=== PATIENT | female | born 1940 | race Caucasian/White ===

== ENCOUNTER → 2019-04-06 14:13 | Outpatient (BNVA) | payer MEDICARE, MEDICAID, SELFPAY | PROVIDERS: Family Provider Internal Medicine; PCP Family Medicine; Visit Provider Nurse Practitioner Family | DX: R05 Cough (principal) | CPT/HCPCS: 71046; 87804 ==

== ENCOUNTER 2019-05-11 10:14 | Emergency (ER) | payer MEDICARE, MEDICAID, SELFPAY ==
[2019-05-11 10:34] VITALS: BP 145/94; PULSE 99; RESP 18; O2SAT 94; BMI 27.4
--- NOTE | 2019-05-11 12:47 | CTR_ITS ---
PROCEDURE INFORMATION: Exam: CT Head Without Contrast Exam date and time: 05/11/2019 1:24 PM Age: 78 years old Clinical indication: Injury or trauma; Fall; Initial encounter; Blunt trauma (contusions or hematomas); Consciousness not specified; Additional info: Fall and head hit concrete TECHNIQUE: Imaging protocol: Computed tomography of the head without contrast. Radiation optimization: All CT scans at this facility use at least one of these dose optimization techniques: automated exposure control; mA and/or kV adjustment per patient size (includes targeted exams where dose is matched to clinical indication); or iterative reconstruction. COMPARISON: CT head wo con* [id number] 04/27/2018 2:36 PM FINDINGS: Brain: There is no acute intracranial hemorrhage or mass effect. Moderate diffuse volume loss is within the range of normal for patient age. There are small vessel ischemic changes within the periventricular and subcortical white matter, but the normal bowers-white matter delineation is maintained. There is left frontal encephalomalacia. Ventricles: Normal. No ventriculomegaly. Bones/joints: Unremarkable. No acute fracture. Sinuses: Visualized sinuses are unremarkable. No fluid levels. Mastoid air cells: Visualized mastoid air cells are well aerated. Soft tissues: There is right frontal soft tissue swelling. CT/CT head wo con* [id number] IMPRESSION: No acute hemorrhage or calvarial fracture. Radiation Dose CTDIVOL = (mGy): DLP = 791.08 (mGy-cm)
--- NOTE | 2019-05-11 13:02 | W.ED.HEATRA ---
HPI - Head Injury General: Chief complaint: Head Injury Stated complaint: FALL HEAD LAC Time Seen by Provider: 05/11/19 12:48 History of Present Illness: HPI Narrative: Patient is a 78-year-old female who comes to the ED after fall. Patient is on a pick some bands. Patient was walking in the [place] parking lot tripped and fell hitting her knees and forehead onto the concrete. She has some bleeding from a wound on her forehead. Her only complaint after the fall is a headache and some right knee pain. She denies any loss of consciousness or nausea or vomiting after fall. She also denies any numbness or tingling to the extremities or weakness to the extremities. She can not remember when she got her last tetanus shot. Associated symptoms: Deny nausea, neck pain or vomiting Review of Systems Const: Denies: fever, chills or fatigue Eyes: Denies: change in vision or eye discomfort ENMT: Denies: throat pain, painful swallowing, nasal discharge or nasal congestion Card: Denies: chest pain, palpitations, edema, swelling of feet/ankles, shortness of breath on exertion or shortness of breath when lying down Resp: Denies: shortness of breath, productive cough or non-productive cough GI: Denies: abdominal pain, nausea, vomiting, diarrhea, constipation or blood in stool : Denies: flank pain, painful urination or blood in urine Musc: Reports: extremity pain (right knee); Denies: neck pain, back pain or extremity swelling Skin/Breast: Reports: new lesion (forhead-abrasion from fall); Denies: rash Neuro: Reports: headache; Denies: numbness in extremities or weakness in extremities [facility] ED PFSH: Social History Smoking and tobacco status: never smoked Alcohol intake: never Physical Exam Narrative: EXAM NARRATIVE: Patient is a 78-year-old female who is lying comfortably in the room when I entered. She is showing no signs of acute distress or pain. She is also showing no signs of acute respiratory distress. Const: COMMON NORMALS: oriented x3 HENMT: COMMON NORMALS: normocephalic HEAD & SCALP: normocephalic, abrasion (forehead) and contusion (forehead) MOUTH: oral and palatal mucosa normal THROAT: posterior oropharynx normal and uvula midline Neck/C-Spine: COMMON NORMALS: supple GENERAL: Yes normal visual inspection Resp: COMMON NORMALS: normal respiratory effort, no retractions, no use of accessory muscles and clear to auscultation bilaterally AUSCULTATION: clear to auscultation bilaterally Cardio: COMMON NORMALS: regular rate, regular rhythm, S1 normal heart sound, S2 normal heart sound, no gallops, no clicks, no murmurs and peripheral pulses 2+ throughout RATE: regular rate RHYTHM: regular rhythm HEART SOUNDS: S1 normal and S2 normal PERIPHERAL PULSES: pulses 2+ throughout GI: COMMON NORMALS: normal to inspection, nondistended, normoactive bowel sounds, soft to palpation, non-tender and no masses PALPATION: Yes soft : COMMON NORMALS: Yes no CVA tenderness BLADDER/KIDNEY EXAM: Yes no CVA tenderness Back/Pelvis: COMMON NORMALS: no CVA tenderness Extremity: RIGHT LOWER EXTREMITY: Yes knee joint Right knee: Yes inspection (swelling), Yes palpation (tender), Yes ROM (normal) and Yes neurovascular exam (intact) Neuro: COMMON NORMALS: oriented x3, CN's II-XII intact bilaterally, moves all extremities, no focal motor deficits and no sensory deficits noted SENSORY EXAM: Yes extremities (intact) MOTOR EXAM: strength 5/5 throughout Course ED course: Abrasion on forehead was cleaned and a bandage was placed over it. Vital Signs: Vital signs: Vital Signs Pulse Rate 86 05/11/19 16:15 Respiratory Rate 18 05/11/19 16:15 Blood Pressure 146/72 05/11/19 16:15 Pulse Oximetry 96 05/11/19 16:15 MDM - Head Injury Imaging Data^: CT Head: Attestation: I personally reviewed and interpreted this imaging study as follows: Radiologist's impression: [address] [place] [address] CT Scan Report Signed Patient: Arielle Vences Unit #: [id number] : 1940 Age/Sex: 78 / F ADM Date: 05/11/19 Loc: ER Room/Bed: Attending Dr: Ordering Provider/Ordering MD: Arvind Encarnacion Date of Service: 05/11/19 Procedure(s): CT head wo con* [id number] Accession Number(s): [id number] Report Number: [id number] PROCEDURE INFORMATION: Exam: CT Head Without Contrast Exam date and time: 05/11/2019 1:24 PM Age: 78 years old Clinical indication: Injury or trauma; Fall; Initial encounter; Blunt trauma (contusions or hematomas); Consciousness not specified; Additional info: Fall and head hit concrete TECHNIQUE: Imaging protocol: Computed tomography of the head without contrast. Radiation optimization: All CT scans at this facility use at least one of these dose optimization techniques: automated exposure control; mA and/or kV adjustment per patient size (includes targeted exams where dose is matched to clinical indication); or iterative reconstruction. COMPARISON: CT head wo con* [id number] 04/27/2018 2:36 PM FINDINGS: Brain: There is no acute intracranial hemorrhage or mass effect. Moderate diffuse volume loss is within the range of normal for patient age. There are small vessel ischemic changes within the periventricular and subcortical white matter, but the normal bowers-white matter delineation is maintained. There is left frontal encephalomalacia. Ventricles: Normal. No ventriculomegaly. Bones/joints: Unremarkable. No acute fracture. Sinuses: Visualized sinuses are unremarkable. No fluid levels. Mastoid air cells: Visualized mastoid air cells are well aerated. Soft tissues: There is right frontal soft tissue swelling. CT/CT head wo con* [id number] IMPRESSION: No acute hemorrhage or calvarial fracture. Radiation Dose CTDIVOL = (mGy): DLP = 791.08 (mGy-cm) Dictated By: Margo Zhang MD Signed By: Margo Zhang MD Signed Date/Time: 05/11/19 1347 DD/ 1346 Xray Ortho: Attestation: I personally reviewed and interpreted this imaging study as follows: Radiologist's impression: [address] [address] XRay Report Signed Patient: Arielle Vences Unit #: [id number] : 1940 Age/Sex: 78 / F ADM Date: 05/11/19 Loc: ER Room/Bed: Attending Dr: Ordering Provider/Ordering MD: Arvind Encarnacion Date of Service: 05/11/19 Procedure(s): XR knee RT 3V* [id number] Accession Number(s): [id number] Report Number: [id number] WS: [id number] XR knee RT 3V* [id number] REASON FOR EXAM: pain and swelling FINDINGS: Mild degenerate changes across the meniscal joints. A low riding patellas seen with loss of the patella tibial space. There is degenerate changes of the patella femoral articulation. There is no definite fractures of the knee seen. The patella showed no gross fractures or displacement there is spurring seen. XR/XR knee RT 3V* [id number] IMPRESSION: Low riding patella. There is no fractures seen in the knee There is degenerate changes of the meniscal cyst spaces. Degenerate changes of the patella femoral articulation. Dictated By: Arturo Rose DO Signed By: Arturo Rose DO Signed Date/Time: 05/11/196 DD/ 24 Discharge Plan Discharge Patient Disposition: Home, Self-Care Clinical Impression: Fall Qualifiers: Encounter type: initial encounter Qualified Code(s): W19.XXXA - Unspecified fall, initial encounter Contusion Qualifiers: Encounter type: initial encounter Contusion area: head Contusion of head detail: scalp Qualified Code(s): S00.03XA - Contusion of scalp, initial encounter Condition: Stable Prescriptions: No Action lisinopril 10 mg tablet 10 mg PO DAILY RF: 0 levothyroxine 88 mcg tablet 88 mcg PO DAILY RF: 0 digoxin 125 mcg (0.125 mg) tablet 125 mcg PO DAILY RF: 0 diltiazem HCl 360 mg capsule,extended release 24hr 360 mg PO QAM RF: 0 Eliquis 5 mg tablet 5 mg PO BID RF: 0 furosemide 40 mg tablet 20 mg PO QAM RF: 0 gabapentin 600 mg tablet 600 mg PO TID RF: 0 loratadine 10 mg tablet 10 mg PO DAILY RF: 0 Myrbetriq 50 mg tablet extended release 24 hr 50 mg PO Q24H RF: 0 calcium carbonate [Oyster Shell Calcium] 500 mg calcium (1,250 mg) tablet 500 mg PO BID RF: 0 tizanidine 2 mg capsule 4 mg PO BID PRN (Reason: Spasms) RF: 0 omeprazole 20 mg capsule,delayed release(DR/EC) 20 mg PO DAILY RF: 0 trazodone 50 mg Tablet 25 - 50 mg PO BEDTIME PRN (Reason: Sleep) RF: 0 alendronate 70 mg tablet 70 mg PO Q7D RF: 0 Thera-Tabs Tablet 1 tab PO BID RF: 0 Industry 10-325 mg Tablet 1 tab PO DAILY PRN (Reason: Pain) RF: 0 Norvasc 10 mg Tablet 10 mg PO DAILY RF: 0 Singulair 10 mg Tablet 10 mg PO DAILY RF: 0 pravastatin 20 mg Tablet 20 mg PO DAILY RF: 0 hydroxyzine pamoate 25 mg Capsule 25 mg PO BEDTIME PRN (Reason: unknown) RF: 0 Cymbalta 60 mg Capsule,Delayed Release(Dr/Ec) 60 mg PO DAILY RF: 0 cholecalciferol (vitamin D3) 1,250 mcg (50,000 unit) capsule 50,000 unit PO Q7D RF: 0 Anoro Ellipta 62.5-25 mcg/actuation Blister With Device 1 inh INHALATION DAILY RF: 0 potassium chloride 20 mEq Tablet Extended Release 20 meq PO 5XD RF: 0 Discharge Orders: Discharge Order (Routine); Ordered 05/11/19 Ordered By: Arvind Encarnacion Referrals: Alison Ramos MD [Family Provider] - Radha Martinez MD [Primary Care Provider] - Discharge Diet: Regular Discharge Activity: Resume usual activity Patient Instructions: Contusion in Adults (ED) Activity Restrictions/Additional Instructions: Follow-up with your PCP in 7 days for reevaluation. Apply ice on contusion on hand to help with swelling. Make sure the wound is clean daily and fresh bandage placed on it. Watch for signs of infection such as redness, warmth, drainage. Take Tylenol or ibuprofen for any headache or fever. Discharge Date/Time: 05/11/19 16:16 Coding Level of Care Code ED Rigging Up Worker for Haileyg Fwd Exam Comprehensive
--- NOTE | 2019-05-11 13:31 | PC.NURSE ---
PT TAKEN TO CT VIA STRETCHER.
--- NOTE | 2019-05-11 14:07 | XR_ITS ---
WS: [id number] XR knee RT 3V* [id number] REASON FOR EXAM: pain and swelling FINDINGS: Mild degenerate changes across the meniscal joints. A low riding patellas seen with loss of the patella tibial space. There is degenerate changes of the patella femoral articulation. There is no definite fractures of the knee seen. The patella showed no gross fractures or displacement there is spurring seen. XR/XR knee RT 3V* [id number] IMPRESSION: Low riding patella. There is no fractures seen in the knee There is degenerate changes of the meniscal cyst spaces. Degenerate changes of the patella femoral articulation.
[2019-05-11] MEDS: acetaminophen 500 mg Tablet PO (14:13)
[2019-05-11] MEDS: tetanus-dipt-pertussis 0.5 mL SDV IM (14:31)
[2019-05-11 16:15] VITALS: BP 146/72; PULSE 86; RESP 18; O2SAT 96
== END 2019-05-11 16:16 | disposition home or self-care (01) ==
PROVIDERS: Emergency Provider Physician Assistant; Family Provider Internal Medicine; PCP Family Medicine
DX: S00.83XA Contusion of other part of head, initial encounter (principal); W01.0XXA Fall on same level from slipping, tripping and stumbling without subsequent striking against object, initial encounter; Y92.481 Parking lot as the place of occurrence of the external cause; Z23 Encounter for immunization
CPT/HCPCS: 70450; 73562; 90471; 90715; 99281; 99283

== ENCOUNTER 2019-06-27 19:59 | Emergency (ER) | payer MEDICARE, MEDICAID, SELFPAY ==
[2019-06-27 20:00] VITALS: BP 170/02; PULSE 98; RESP 18; TEMP 36.2; O2SAT 92; BMI 27.4
--- NOTE | 2019-06-27 20:07 | ED_ITS ---
HPI - Nausea/Vomiting/Diarrhea General: Chief complaint: Nausea/Vomiting/Diarrhea Stated complaint: N/V Time Seen by Provider: 06/27/19 20:07 Source: patient Mode of arrival: ambulatory Limitations: no limitations History of Present Illness: HPI Narrative: Patient comes in today for complaints of nausea and vomiting starting an hour before arrival to the ER. Patient denies any chest pain or shortness of breath. Patient appears mildly unwell. Patient appears in no pain at rest. Associated nausea: Yes Associated symtoms: Reports nausea Review of Systems General: Reports: 10 or more systems reviewed and unremarkable except in HPI and below GI: Reports: nausea and vomiting PFS ED PFSH: Social History Smoking and tobacco status: never smoked Alcohol intake: never Physical Exam Const: COMMON NORMALS: no apparent distress and oriented x3 GENERAL APPEARANCE: cooperative HENMT: COMMON NORMALS: normocephalic, TM's normal bilaterally and external nose normal HEAD & SCALP: normal to inspection and normocephalic NOSE: external nose normal TYMPANIC MEMBRANE: TM's normal bilaterally MOUTH: oral and palatal mucosa normal THROAT: posterior oropharynx normal Eye: GENERAL EYE: normal appearance of both eyes Neck/C-Spine: COMMON NORMALS: full ROM Lymph: LYMPHATIC: no lymphadenopathy noted Chest: COMMONS NORMALS: inspection of chest normal Resp: COMMON NORMALS: normal respiratory effort EFFORT & INSPECTION: Yes able to speak in complete sentences Cardio: COMMON NORMALS: regular rate and regular rhythm RATE: regular rate RHYTHM: regular rhythm GI: AUSCULTATION: Yes normoactive bowel sounds PALPATION: Yes tender (mild mid epigastric tenderness) : COMMON NORMALS: Yes no CVA tenderness BLADDER/KIDNEY EXAM: Yes no CVA tenderness Back/Pelvis: COMMON NORMALS: no CVA tenderness and thoracic and lumbar spine normal to inspection Extremity: COMMON NORMALS: normal to inspection Neuro: COMMON NORMALS: oriented x3 and moves all extremities Psych: COMMON NORMALS: mental status grossly normal and cooperative Skin: COMMON NORMALS: no rashes or lesions noted GENERAL SKIN EXAM: no rashes or lesions noted Course Vital Signs: Vital signs: Vital Signs Temperature 97.2 F L 06/27/19 20:00 Pulse Rate 91 06/27/19 21:29 Respiratory Rate 18 06/27/19 21:17 Blood Pressure 141/88 06/27/19 21:29 Pulse Oximetry 90 06/27/19 21:17 MDM - Nausea/Vomiting/Diarrhea MDM Narrative: Medical decision making narrative: Patient comes in today for complaints of nausea and vomiting starting an hour before arrival to the ER. On exam patient's abdomen is soft with some mild tenderness in the epigastric area. Bowel sounds are normal. Skin is warm and dry. Vital signs are normal except for mild elevation in blood pressure. Differential diagnosis includes gastro enteritis, acute food poisoning, UTI, gastritis, viral syndrome. Blood cell count was normal. Metabolic panel noted some mild increase in creatinine to 1.1. Urinalysis had some hyaline casts along with squamous cells and white and red blood cells. Suspect patient probably has a mild viral gastroenteritis or food poisoning patient had improvement after 500 cc of fluid and 1 dose of Zofran. Patient was allowed to go home with medication to help with nausea and vomiting and encouraged to drink plenty of fluids. Patient reported understanding of care plan and need for follow-up or return. Lab Data: Labs: Lab Results 06/27/19 06/27/19 06/27/19 Range/Units 20:21 20:21 20:21 WBC 9.6 (4.0-10.0) 10^3/ uL RBC 4.90 (4.1-5.3) 10^6/u L Hgb 14.4 (11.5-15.3) g/dL Hct 45.1 (37.0-47.0) % MCV 92.0 (81-99) fL MCH 29.4 (28.0-34.0) pg MCHC 31.9 (30.0-36.0) g/dL RDW 13.1 (12.1-15.1) % Plt Count 224 (130-400) 10^3/c mm MPV 9.6 (7.4-10.4) fL Neut % (Auto) 77.2 % Lymph % (Auto) 12.4 % Edwards % (Auto) 8.8 % Eos % (Auto) 1.0 % Baso % (Auto) 0.4 % Neut # (Auto) 7.4 (1.8-7.7) 10^3/u L Lymph # (Auto) 1.2 (0.8-4.8) 10^3/u L Edwards # (Auto) 0.8 (0.2-0.9) 10^3/u L Eos # (Auto) 0.1 (0.0-0.8) 10^3/u L Baso # (Auto) 0.0 (0.0-0.1) 10^3/u L Nucleated RBC % (a uto) 0 % Nucleated RBCs # 0.0 /100WBC Sodium 137 (136-145) mmol/L Potassium 4.1 (3.5-5.1) mmol/L Chloride 98 (98-107) mmol/L Carbon Dioxide 27 (22-29) mmol/L Anion Gap 16.1 (5-19) BUN 18 (8-23) mg/dL Creatinine 1.1 H (0.5-0.9) mg/dL Glucose 133 H (65-115) mg/dL Calculated Osmolal ity 282 L (285-295) mOsm/k g Calcium 10.3 (8.5-10.5) mg/dL Total Bilirubin 0.3 (0.15-1.2) mg/dL AST 18 (0-32) U/L ALT 11 (0-33) U/L Alkaline Phosphata se 69 (35-105) IU/L Total Protein 7.8 (6.6-8.7) g/dL Albumin 4.8 (3.5-5.2) g/dL Globulin 3.0 (1.3-4.6) g/dL Lipase 15 (13-60) U/L Urine Color (Yellow) Urine Appearance (CLEAR) Urine pH (5-7) Ur Specific Gravit y (1.005-1.030) Urine Protein (Negative) Urine Glucose (UA) (Normal) Urine Ketones (Negative) Urine Blood (Negative) Urine Nitrate (Negative) Urine Bilirubin (NEGATIVE) Urine Urobilinogen (Negative) mg/dL Ur Leukocyte Vale ase (Negative) Urine RBC (0-2) /hpf Urine WBC (0-5) /hpf Ur Squamous Epith Cells (0-5) Ur Transition Epit h Cell /hpf Urine Bacteria (NONE) Hyaline Casts Digoxin 0.4 L (0.6-1.2) ng/mL 06/27/19 Range/Units 21:06 WBC (4.0-10.0) 10^3/ uL RBC (4.1-5.3) 10^6/u L Hgb (11.5-15.3) g/dL Hct (37.0-47.0) % MCV (81-99) fL MCH (28.0-34.0) pg MCHC (30.0-36.0) g/dL RDW (12.1-15.1) % Plt Count (130-400) 10^3/c mm MPV (7.4-10.4) fL Neut % (Auto) % Lymph % (Auto) % Edwards % (Auto) % Eos % (Auto) % Baso % (Auto) % Neut # (Auto) (1.8-7.7) 10^3/u L Lymph # (Auto) (0.8-4.8) 10^3/u L Edwards # (Auto) (0.2-0.9) 10^3/u L Eos # (Auto) (0.0-0.8) 10^3/u L Baso # (Auto) (0.0-0.1) 10^3/u L Nucleated RBC % (a uto) % Nucleated RBCs # /100WBC Sodium (136-145) mmol/L Potassium (3.5-5.1) mmol/L Chloride (98-107) mmol/L Carbon Dioxide (22-29) mmol/L Anion Gap (5-19) BUN (8-23) mg/dL Creatinine (0.5-0.9) mg/dL Glucose (65-115) mg/dL Calculated Osmolal ity (285-295) mOsm/k g Calcium (8.5-10.5) mg/dL Total Bilirubin (0.15-1.2) mg/dL AST (0-32) U/L ALT (0-33) U/L Alkaline Phosphata se (35-105) IU/L Total Protein (6.6-8.7) g/dL Albumin (3.5-5.2) g/dL Globulin (1.3-4.6) g/dL Lipase (13-60) U/L Urine Color Yellow (Yellow) Urine Appearance Clear (CLEAR) Urine pH 5 (5-7) Ur Specific Gravit y 1.025 (1.005-1.030) Urine Protein Neg (Negative) Urine Glucose (UA) Norm (Normal) Urine Ketones Negative (Negative) Urine Blood Neg (Negative) Urine Nitrate Negative (Negative) Urine Bilirubin Neg (NEGATIVE) Urine Urobilinogen Norm (Negative) mg/dL Ur Leukocyte Vale ase 1+ H (Negative) Urine RBC 0-4 H (0-2) /hpf Urine WBC 0-4 H (0-5) /hpf Ur Squamous Epith Cells 5-10 H (0-5) Ur Transition Epit h Cell 0-4 /hpf Urine Bacteria Trace (NONE) Hyaline Casts 5-10 H Digoxin (0.6-1.2) ng/mL EKG Data^: EKG 1: Attestation: I personally reviewed and interpreted this EKG as follows: (2036, a-fib, rate 90, no ectopy, no ST elevation) Discharge Plan Discharge Patient Disposition: Home, Self-Care Clinical Impression: Dehydration, Acute viral syndrome Vomiting Qualifiers: Vomiting type: unspecified Vomiting Intractability: non-intractable Nausea presence: with nausea Qualified Code(s): R11.2 - Nausea with vomiting, unspecified Condition: Stable Prescriptions: New ondansetron HCl 4 mg tablet 4 mg PO Q8H PRN (Reason: nausea and vomiting) Qty: 7 RF: 0 No Action lisinopril 10 mg tablet 10 mg PO DAILY RF: 0 levothyroxine 88 mcg tablet 88 mcg PO DAILY RF: 0 digoxin 125 mcg (0.125 mg) tablet 125 mcg PO DAILY RF: 0 diltiazem HCl 360 mg capsule,extended release 24hr 360 mg PO QAM RF: 0 Eliquis 5 mg tablet 5 mg PO BID RF: 0 furosemide 40 mg tablet 20 mg PO QAM RF: 0 gabapentin 600 mg tablet 600 mg PO TID RF: 0 loratadine 10 mg tablet 10 mg PO DAILY RF: 0 Myrbetriq 50 mg tablet extended release 24 hr 50 mg PO Q24H RF: 0 calcium carbonate [Oyster Shell Calcium] 500 mg calcium (1,250 mg) tablet 500 mg PO BID RF: 0 tizanidine 2 mg capsule 4 mg PO BID PRN (Reason: Spasms) RF: 0 omeprazole 20 mg capsule,delayed release(DR/EC) 20 mg PO DAILY RF: 0 trazodone 50 mg Tablet 25 - 50 mg PO BEDTIME PRN (Reason: Sleep) RF: 0 alendronate 70 mg tablet 70 mg PO Q7D RF: 0 Thera-Tabs Tablet 1 tab PO BID RF: 0 Lincoln 10-325 mg Tablet 1 tab PO DAILY PRN (Reason: Pain) RF: 0 Norvasc 10 mg Tablet 10 mg PO DAILY RF: 0 Singulair 10 mg Tablet 10 mg PO DAILY RF: 0 pravastatin 20 mg Tablet 20 mg PO DAILY RF: 0 hydroxyzine pamoate 25 mg Capsule 25 mg PO BEDTIME PRN (Reason: unknown) RF: 0 Cymbalta 60 mg Capsule,Delayed Release(Dr/Ec) 60 mg PO DAILY RF: 0 cholecalciferol (vitamin D3) 1,250 mcg (50,000 unit) capsule 50,000 unit PO Q7D RF: 0 Anoro Ellipta 62.5-25 mcg/actuation Blister With Device 1 inh INHALATION DAILY RF: 0 potassium chloride 20 mEq Tablet Extended Release 20 meq PO 5XD RF: 0 Discharge Orders: Discharge Order (Routine); Ordered 06/27/19 Ordered By: Chencho Díaz Referrals: Alison Ramos MD [Family Provider] - Radha Martinez MD [Primary Care Provider] - Discharge Diet: Usual diet Discharge Activity: Increase activity as tolerated Patient Instructions: Gastroenteritis (ED) Activity Restrictions/Additional Instructions: Drink plenty of fluids Light diet Drink sips of fluids to start, then increase as tolerated Return to ER for worsening symptoms, high fever, or severe pain Follow-up with primary care in one week Coding Level of Care Code 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
--- NOTE | 2019-06-27 20:17 | ECG_ITS ---
Measurements Intervals [place] Rate: 91 P: TX: 0 QRS: -42 QRSD: 93 T: 52 QT: 365 QTc: 450 ATRIAL FIBRILLATION MARKED LEFT AXIS DEVIATION [QRS AXIS < -30] ANTEROSEPTAL MYOCARDIAL INFARCTION [40+ ms Q WAVE IN V1-V4], PROBABLY OLD Compared to ECG 06/20/2018 17:48:00 No significant changes Electronically Signed On 06-28-2019 7:48:45 CDT by Justin Ramachandran M.D. [email or web address]
[2019-06-27 20:25] LABS: Basophils % 0.4 %; Eosinophils # 0.1 10^3/uL (0.0-0.8); Hematocrit 45.1 % (37.0-47.0); Hemoglobin 14.4 g/dL (11.5-15.3); Lymphocytes # 1.2 10^3/uL (0.8-4.8); Lymphocytes % 12.4 %; Mean Corpuscular HGB Conc 31.9 g/dL (30.0-36.0); Mean Corpuscular Hemoglobin 29.4 pg (28.0-34.0); Mean Platelet Volume 9.6 fL (7.4-10.4); Monocytes # 0.8 10^3/uL (0.2-0.9); Monocytes % 8.8 %; Neutrophils # 7.4 10^3/uL (1.8-7.7); Neutrophils % 77.2 %; Nucleated Red Blood Cells % 0 %; Platelet Count 224 10^3/cmm (130-400); Red Cell Distribution Width 13.1 % (12.1-15.1); White Blood Count 9.6 10^3/uL (4.0-10.0)
[2019-06-27] MEDS: ondansetron 2 mg/ML SDV 2 mL 4 MG IVP (20:39)
[2019-06-27 20:41] LABS: Alanine Aminotransferase 11 U/L (0-33); Albumin Level 4.8 g/dL (3.5-5.2); Alkaline Phosphatase 69 IU/L (35-105); Anion Gap 16.1 (5-19); Aspartate Amino Transferase 18 U/L (0-32); Blood Urea Nitrogen 18 mg/dL (8-23); Calcium 10.3 mg/dL (8.5-10.5); Carbon Dioxide 27 mmol/L (22-29); Chloride 98 mmol/L (98-107); Glucose 133 mg/dL (65-115); Lipase 15 U/L (13-60); Osmolality Calculated 282 mOsm/kg (285-295); Potassium 4.1 mmol/L (3.5-5.1); Sodium 137 mmol/L (136-145); Total Bilirubin 0.3 mg/dL (0.15-1.2); Total Protein 7.8 g/dL (6.6-8.7)
[2019-06-27 21:17] VITALS: BP 130/91; PULSE 117; RESP 18; O2SAT 90
[2019-06-27] MEDS: sodium chloride 0.9% 500 ML IV (21:17)
[2019-06-27 21:19] LABS: Digoxin 0.4 ng/mL (0.6-1.2)
[2019-06-27 21:28] LABS: Add Urine Microscopic? YES; Bilirubin Urine Neg (NEGATIVE); Blood Urine Neg (Negative); Glucose Urine UA Norm (Normal); Ketones Urine Negative (Negative); Leukocyte Esterase Urine 1+ (Negative); Nitrate Urine Negative (Negative); Protein Urine Neg (Negative); Specific Gravity, Urine 1.025 (1.005-1.030); Urine Appearance Clear (CLEAR); Urine Color Yellow (Yellow); Urobilinogen Urine Norm (Negative); pH Urine 5 (5-7)
[2019-06-27 21:29] VITALS: BP 141/75; BP 141/88; BP 147/85; PULSE 100; PULSE 79; PULSE 91
[2019-06-27 21:41] LABS: Bacteria Urine TRACE; Transitional Epi Cells Urine 0-4 /hpf
[2019-06-27 21:42] LABS: Add Urine Culture? No; RBC Urine 0-4 /hpf (0-2); WBC Urine 0-4 /hpf (0-5)
== END 2019-06-27 22:01 | disposition home or self-care (01) ==
PROVIDERS: Emergency Provider Nurse Practitioner Family; Family Provider Internal Medicine; PCP Family Medicine
DX: E86.0 Dehydration (principal); B34.9 Viral infection, unspecified; K52.29 Other allergic and dietetic gastroenteritis and colitis; J44.9 Chronic obstructive pulmonary disease, unspecified; I48.91 Unspecified atrial fibrillation; Z79.01 Long term (current) use of anticoagulants
CPT/HCPCS: 12345; 36415; 80053; 80162; 81001; 83690; 85025; 93005; 96361; 96374; 96375; 99283; 99284; J2405; J7040

== ENCOUNTER 2019-09-09 12:17 | Observation (INO) | payer MEDICARE, MEDICAID, SELFPAY ==
[2019-09-09] VITALS (14 sets, daily range): BP systolic 86–158; BP diastolic 54–102; PULSE 63–90; RESP 14–20; TEMP 36.4–36.6; O2SAT 92–98; BMI 28.5
--- NOTE | 2019-09-09 12:33 | ECG_ITS ---
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 Measurements Intervals [place] Rate: 82 P: IN: -1 QRS: -44 QRSD: 99 T: 56 QT: 395 QTc: 464 Interpretive Statements ATRIAL FIBRILLATION MARKED LEFT AXIS DEVIATION [QRS AXIS < -30] SEPTAL MYOCARDIAL INFARCTION [40+ ms Q WAVE IN V1/V2], OF INDETERMINATE AGE Compared to ECG 06/27/2019 20:37:04 No significant changes Electronically Signed On 09-10-2019 22:55:18 CDT by Cristal Tran M.D. [email or web address]
--- NOTE | 2019-09-09 12:33 | XR_ITS ---
WS: [id number] XR chest 1V portable [id number] REASON FOR EXAM: chest pain FINDINGS: Mild elevation of the left hemidiaphragm. The heart is borderline enlarged similar to April 06, 2019. The lung watts are well aerated. There is no pneumonia, pleural effusion, pneumothorax, no masses. The hilum and apices normal. XR/XR chest 1V portable [id number] IMPRESSION: Negative chest for acute pathology.
--- NOTE | 2019-09-09 12:39 | W.ED.CHESTPA ---
HPI - Chest Pain General: Chief Complaint: Chest Pain Stated Complaint: CP Source: patient and family Mode of arrival: ambulatory Limitations: no limitations History of Present Illness: MD complaint: chest pain Onset (ago): day(s) (1) Timing of current episode: constant Prior episodes: No Onset: during rest Pain location: left chest Pain radiation: back Severity: severe Pain scale (0-10): 7 Quality: sharp Relieving factors: nothing Exacerbating factors: exertion Associated symptoms: Reports dyspnea and nausea; Deny abdominal pain, diaphoresis, fever(s), leg edema, palpitations or sense of impending doom Review of Systems General: Reports: 10 or more systems reviewed and unremarkable except in HPI and below Const: Denies: fever(s) or diaphoresis Eyes: Denies: change in vision or blurry vision ENMT: Denies: throat pain, enlarged tonsils, odynophagia, hoarseness, mouth pain or swelling of lips/tongue Card: Denies: palpitations Resp: Reports: dyspnea GI: Reports: nausea; Denies: abdominal pain : Denies: flank pain, difficulty voiding, dysuria, urinary frequency, urinary urgency or urinary hesitancy Musc: Denies: neck pain, back pain or extremity swelling Skin/Breast: Denies: rash, pruritus or erythema Neuro: Denies: headache(s), numbness in extremities or weakness in extremities Endo: Denies: polyuria, polydipsia or tired all the time PFSH ED PFSH: Medical History Acid reflux Afib Anal fissure Chronic back pain Chronic systolic (congestive) heart failure COPD (chronic obstructive pulmonary disease) Essential hypertension Flu-like symptoms Lymphedema of both lower extremities Mixed hyperlipidemia Surgical History History of hysterectomy Social History (Updated 09/09/19 @ 18:24 by Haider Barcenas MD) Smoking and tobacco status: former smoker Alcohol intake: never Substance/Drug Use: never Physical Exam Const: COMMON NORMALS: no acute distress, average body habitus, patient oriented x3, no limitations, healthy appearing, alert and well nourished HENMT: COMMON NORMALS: normocephalic, atraumatic and moist oral mucous membranes HEAD & SCALP: normocephalic and atraumatic Eye: COMMON NORMALS: Equal, round and reactive pupils present, EOMs intact bilaterally, conjunctivae normal and no scleral icterus CONJUNCTIVA: Yes conjunctivae normal PUPIL: Yes Equal, round and reactive pupils present Neck/C-Spine: COMMON NORMALS: full ROM, supple, no meningeal signs, no JVD and No carotid bruits Chest: COMMONS NORMALS: normal inspection of the chest and normal palpation of entire chest wall Resp: COMMON NORMALS: normal respiratory effort, No retractions, No use of accessory muscles, clear to auscultation bilaterally and percussion normal AUSCULTATION: clear to auscultation bilaterally PERCUSSION: percussion normal Cardio: COMMON NORMALS: no JVD, regular rate, regular rhythm, S1 normal heart sound present, S2 normal heart sound present, No gallops present (Cardio), No clicks present (Cardio), No murmurs present (Cardio), No rub (Cardio) and Peripheral pulses 2+ throughout RATE: regular rate RHYTHM: regular rhythm HEART SOUNDS: S1 normal heart sound present and S2 normal heart sound present PERIPHERAL PULSES: Peripheral pulses 2+ throughout GI: COMMON NORMALS: Normal to inspection, nondistended, normoactive bowel sounds present, Soft to palpation, non-tender, No hepatosplenomegaly present, no masses and no bruits PALPATION: Yes Soft to palpation and Yes No hepatosplenomegaly present : COMMON NORMALS: Yes no CVA tenderness BLADDER/KIDNEY EXAM: Yes no CVA tenderness Back/Pelvis: COMMON NORMALS: no CVA tenderness Extremity: COMMON NORMALS: normal to inspection, full ROM, capillary refill normal, no calf tenderness and no pedal edema Neuro: COMMON NORMALS: patient oriented x3 SENSORIUM/ORIENTATION: Yes alert MENINGEAL SIGNS: Yes no meningeal signs Skin: COMMON NORMALS: no rashes or lesions noted, no wounds, turgor normal, no jaundice, no petechiae and no mottling GENERAL SKIN EXAM: no rashes or lesions noted and turgor normal Course Reevaluation(s): Reevaluation #1: Discussed her lab and imaging findings with her. Baseline troponin mildly elevated but she has a flat 2-hour delta. Chest pain resolved following nitroglycerin. Rest of her labs are unremarkable other than elevated BNP. She has a history of congestive heart failure and she is on Lasix for that. She also has A. fib. I believe her chest pain is anginal in nature and will order an outpatient stress test. She will also be scheduled to see the reading assistant next week. She is advised to return for any concerns and will be discharged home with nitroglycerin to be used as needed. Patient and voiced understanding and all questions answered. Time: 15:56 Reevaluation #2: Chest pain recurred before the patient was discharged. Will admit her for observation and cardiac work-up. She voiced understanding and is in agreement with the plan. Time: 16:59 Consultations: Consultation #1: Dr. Cox, hospitalist. She kindly accepted the patient to her service. Time: 16:55 Vital Signs: Vital signs: Vital Signs Temperature 98 F 09/09/19 19:40 Pulse Rate 80 09/09/19 20:05 Respiratory Rate 16 09/09/19 20:01 Blood Pressure 137/96 09/09/19 19:40 Pulse Oximetry 98 09/09/19 20:01 MDM - Chest Pain MDM Narrative: Medical decision making narrative: 78-year-old female patient who presents with chest pain. Work-up in the emergency department was unremarkable and patient was going to be discharged home with a diagnosis of angina because she obtained significant improvement following a nitroglycerin pill. Before her discharge she had a recurrence of the chest pain and so the patient is admitted under observation status for chest pain work-up. The patient states that she has not had a stress test in several years. Medical Records: Attestation: I reviewed the patient's medical records. Lab Data: Attestation: I reviewed the patient's lab results. Labs: Lab Results 09/09/19 09/09/19 09/09/19 Range/Units 12:56 12:56 12:56 WBC 8.0 (4.0-10.0) 10^3/ uL RBC 4.74 (4.1-5.3) 10^6/u L Hgb 13.8 (11.5-15.3) g/dL Hct 43.8 (37.0-47.0) % MCV 92.4 (81-99) fL MCH 29.1 (28.0-34.0) pg MCHC 31.5 (30.0-36.0) g/dL RDW 12.5 (12.1-15.1) % Plt Count 207 (130-400) 10^3/c mm MPV 9.6 (7.4-10.4) fL Neut % (Auto) 74.9 % Lymph % (Auto) 13.1 % [place] % (Auto) 8.4 % Eos % (Auto) 3.0 % Baso % (Auto) 0.3 % Neut # (Auto) 6.0 (1.8-7.7) 10^3/u L Lymph # (Auto) 1.1 (0.8-4.8) 10^3/u L [place] # (Auto) 0.7 (0.2-0.9) 10^3/u L Eos # (Auto) 0.2 (0.0-0.8) 10^3/u L Baso # (Auto) 0.0 (0.0-0.1) 10^3/u L Nucleated RBC % (a uto) 0 % Nucleated RBCs # 0.0 /100WBC D-Dimer 0.29 (0-0.59) ug/mIFE U Sodium 136 (136-145) mmol/L Potassium 3.7 (3.5-5.1) mmol/L Chloride 100 (98-107) mmol/L Carbon Dioxide 25 (22-29) mmol/L Anion Gap 14.7 (5-19) BUN 14 (8-23) mg/dL Creatinine 0.8 (0.5-0.9) mg/dL Glucose 125 H (65-115) mg/dL Calculated Osmolal ity 280 L (285-295) mOsm/k g Calcium 9.9 (8.5-10.5) mg/dL Magnesium (1.7-2.3) mg/dL Iron (37-145) ug/dL TIBC mcg/dl % Saturation (20-50) % Unsat Iron Binding (112-347) ug/dL Total Bilirubin 0.5 (0.15-1.2) mg/dL AST 17 (0-32) U/L ALT 10 (0-33) U/L Alkaline Phosphata se 64 (35-105) IU/L Troponin T Baselin e (0-10) ng/L Troponin T 120 Min hopi (0-10) ng/L Delta Troponin T (0-10) ABS# NT-Pro-B Natriuret Pep 1327 H (0-450) pg/mL Total Protein 6.5 L (6.6-8.7) g/dL Albumin 4.4 (3.5-5.2) g/dL Globulin 2.1 (1.3-4.6) g/dL Lipase 13 (13-60) U/L Procalcitonin (0-0.5) ng/mL TSH (0.27-4.20) uIU/ mL Urine Color (Yellow) Urine Appearance (CLEAR) Urine pH (5-7) Ur Specific Gravit y (1.005-1.030) Urine Protein (Negative) Urine Glucose (UA) (Normal) Urine Ketones (Negative) Urine Blood (Negative) Urine Nitrate (Negative) Urine Bilirubin (NEGATIVE) Urine Urobilinogen (Negative) mg/dL Ur Leukocyte Vale ase (Negative) Urine RBC (0-2) /hpf Urine WBC (0-5) /hpf Ur Squamous Epith Cells (0-5) Urine Bacteria (NONE) Urine Mucus Digoxin (0.6-1.2) ng/mL 09/09/19 09/09/19 09/09/19 Range/Units 12:56 12:56 12:56 WBC (4.0-10.0) 10^3/ uL RBC (4.1-5.3) 10^6/u L Hgb (11.5-15.3) g/dL Hct (37.0-47.0) % MCV (81-99) fL MCH (28.0-34.0) pg MCHC (30.0-36.0) g/dL RDW (12.1-15.1) % Plt Count (130-400) 10^3/c mm MPV (7.4-10.4) fL Neut % (Auto) % Lymph % (Auto) % [place] % (Auto) % Eos % (Auto) % Baso % (Auto) % Neut # (Auto) (1.8-7.7) 10^3/u L Lymph # (Auto) (0.8-4.8) 10^3/u L [place] # (Auto) (0.2-0.9) 10^3/u L Eos # (Auto) (0.0-0.8) 10^3/u L Baso # (Auto) (0.0-0.1) 10^3/u L Nucleated RBC % (a uto) % Nucleated RBCs # /100WBC D-Dimer (0-0.59) ug/mIFE U Sodium (136-145) mmol/L Potassium (3.5-5.1) mmol/L Chloride (98-107) mmol/L Carbon Dioxide (22-29) mmol/L Anion Gap (5-19) BUN (8-23) mg/dL Creatinine (0.5-0.9) mg/dL Glucose (65-115) mg/dL Calculated Osmolal ity (285-295) mOsm/k g Calcium (8.5-10.5) mg/dL Magnesium 2.3 (1.7-2.3) mg/dL Iron 66 (37-145) ug/dL TIBC 314 mcg/dl % Saturation 21.0 (20-50) % Unsat Iron Binding 248 (112-347) ug/dL Total Bilirubin (0.15-1.2) mg/dL AST (0-32) U/L ALT (0-33) U/L Alkaline Phosphata se (35-105) IU/L Troponin T Baselin e 18 H (0-10) ng/L Troponin T 120 Min hopi (0-10) ng/L Delta Troponin T (0-10) ABS# NT-Pro-B Natriuret Pep (0-450) pg/mL Total Protein (6.6-8.7) g/dL Albumin (3.5-5.2) g/dL Globulin (1.3-4.6) g/dL Lipase (13-60) U/L Procalcitonin 0.04 (0-0.5) ng/mL TSH 2.29 (0.27-4.20) uIU/ mL Urine Color (Yellow) Urine Appearance (CLEAR) Urine pH (5-7) Ur Specific Gravit y (1.005-1.030) Urine Protein (Negative) Urine Glucose (UA) (Normal) Urine Ketones (Negative) Urine Blood (Negative) Urine Nitrate (Negative) Urine Bilirubin (NEGATIVE) Urine Urobilinogen (Negative) mg/dL Ur Leukocyte Vale ase (Negative) Urine RBC (0-2) /hpf Urine WBC (0-5) /hpf Ur Squamous Epith Cells (0-5) Urine Bacteria (NONE) Urine Mucus Digoxin 0.5 L (0.6-1.2) ng/mL 09/09/19 09/09/19 Range/Units 15:02 15:40 WBC (4.0-10.0) 10^3/ uL RBC (4.1-5.3) 10^6/u L Hgb (11.5-15.3) g/dL Hct (37.0-47.0) % MCV (81-99) fL MCH (28.0-34.0) pg MCHC (30.0-36.0) g/dL RDW (12.1-15.1) % Plt Count (130-400) 10^3/c mm MPV (7.4-10.4) fL Neut % (Auto) % Lymph % (Auto) % [place] % (Auto) % Eos % (Auto) % Baso % (Auto) % Neut # (Auto) (1.8-7.7) 10^3/u L Lymph # (Auto) (0.8-4.8) 10^3/u L [place] # (Auto) (0.2-0.9) 10^3/u L Eos # (Auto) (0.0-0.8) 10^3/u L Baso # (Auto) (0.0-0.1) 10^3/u L Nucleated RBC % (a uto) % Nucleated RBCs # /100WBC D-Dimer (0-0.59) ug/mIFE U Sodium (136-145) mmol/L Potassium (3.5-5.1) mmol/L Chloride (98-107) mmol/L Carbon Dioxide (22-29) mmol/L Anion Gap (5-19) BUN (8-23) mg/dL Creatinine (0.5-0.9) mg/dL Glucose (65-115) mg/dL Calculated Osmolal ity (285-295) mOsm/k g Calcium (8.5-10.5) mg/dL Magnesium (1.7-2.3) mg/dL Iron (37-145) ug/dL TIBC mcg/dl % Saturation (20-50) % Unsat Iron Binding (112-347) ug/dL Total Bilirubin (0.15-1.2) mg/dL AST (0-32) U/L ALT (0-33) U/L Alkaline Phosphata se (35-105) IU/L Troponin T Baselin e (0-10) ng/L Troponin T 120 Min hopi 18.73 H (0-10) ng/L Delta Troponin T 0.73 (0-10) ABS# NT-Pro-B Natriuret Pep (0-450) pg/mL Total Protein (6.6-8.7) g/dL Albumin (3.5-5.2) g/dL Globulin (1.3-4.6) g/dL Lipase (13-60) U/L Procalcitonin (0-0.5) ng/mL TSH (0.27-4.20) uIU/ mL Urine Color Yellow (Yellow) Urine Appearance Clear (CLEAR) Urine pH 5 (5-7) Ur Specific Gravit y 1.020 (1.005-1.030) Urine Protein Neg (Negative) Urine Glucose (UA) Norm (Normal) Urine Ketones Negative (Negative) Urine Blood Neg (Negative) Urine Nitrate Negative (Negative) Urine Bilirubin Neg (NEGATIVE) Urine Urobilinogen Neg (Negative) mg/dL Ur Leukocyte Vale ase Trace H (Negative) Urine RBC 0-4 H (0-2) /hpf Urine WBC 0-4 H (0-5) /hpf Ur Squamous Epith Cells 0-4 H (0-5) Urine Bacteria 1+ H (NONE) Urine Mucus Trace Digoxin (0.6-1.2) ng/mL Imaging Data^: CXR: Radiologist's impression: [place] [address] XRay Report Signed Patient: Arielle Vences AUnit #: [id number] : 1940cct#:[id number] Age/Sex: 78 / FADM Date: 09/09/19 Loc: ERRoom/Bed: Attending Dr: Ordering Provider/Ordering MD: Sarah [place]ney [place] [facility] [place] Service: 09/09/19 Procedure(s): XR chest 1V portable 83047 Accession Number(s): [id number] Report Number: [id number] WS: [id number] XR chest 1V portable [id number] REASON FOR EXAM: chest pain FINDINGS: Mild elevation of the left hemidiaphragm. The heart is borderline enlarged similar to April 06, 2019. The lung watts are well aerated. There is no pneumonia, pleural effusion, pneumothorax, no masses. The hilum and apices normal. XR/XR chest 1V portable [id number] IMPRESSION: Negative chest for acute pathology. Dictated By:Arturo Rose DO Signed By:Arturo Rose DOSigned Date/Time:09/09/191247 DD/ 47 EKG Data^: EKG 1: Attestation: I personally reviewed and interpreted this EKG as follows: EKG interpretation date: 09/09/19 EKG interpretation time: 12:40 Prior EKG tracings: not available for review Interpretation: Atrial fibrillation. Heart rate 82 bpm. Left axis deviation. No ST changes. EKG 2: Attestation: I personally reviewed and interpreted this EKG as follows: EKG interpretation date: 09/09/19 EKG interpretation time: 14:33 Prior EKG tracings: available for review Interpretation: Atrial fibrillation. Heart rate 73 bpm. Left anterior fascicular block. Discharge Plan Discharge Patient Disposition: Placed in Observation Admit Provider: Santa Cox Clinical Impression: Chest pain Condition: Stable Discharge Orders: Discharge Order (Routine); Ordered 09/09/19 Ordered By: Sarah Cheney Interventions: ED Discharge Assessment Last Done: 09/09/19 17:48 ED Charges Last Done: 09/09/19 17:48 Discharge Date/Time: 09/09/19 17:49 Coding Level of Care Code ED Distribution Engineering Technologist for Chg Fwd Exam Comprehensive
[2019-09-09] MEDS: nitroglycerin 0.4 mg sublingual Tablet SUBLINGUAL (12:55)
[2019-09-09 13:03] LABS: Basophils % 0.3 %; Eosinophils # 0.2 10^3/uL (0.0-0.8); Hematocrit 43.8 % (37.0-47.0); Hemoglobin 13.8 g/dL (11.5-15.3); Lymphocytes # 1.1 10^3/uL (0.8-4.8); Lymphocytes % 13.1 %; Mean Corpuscular HGB Conc 31.5 g/dL (30.0-36.0); Mean Corpuscular Hemoglobin 29.1 pg (28.0-34.0); Mean Corpuscular Volume 92.4 fL (81-99); Mean Platelet Volume 9.6 fL (7.4-10.4); Monocytes # 0.7 10^3/uL (0.2-0.9); Monocytes % 8.4 %; Neutrophils % 74.9 %; Nucleated Red Blood Cells % 0 %; Platelet Count 207 10^3/cmm (130-400); Red Blood Count 4.74 10^6/uL (4.1-5.3); Red Cell Distribution Width 12.5 % (12.1-15.1)
[2019-09-09 13:17] LABS: D Dimer 0.29 ug/mIFEU (0-0.59)
[2019-09-09 13:22] LABS: Troponin(5th) Baseline 18 ng/L (0-10)
[2019-09-09 13:31] LABS: Alanine Aminotransferase 10 U/L (0-33); Albumin Level 4.4 g/dL (3.5-5.2); Alkaline Phosphatase 64 IU/L (35-105); Anion Gap 14.7 (5-19); Aspartate Amino Transferase 17 U/L (0-32); Blood Urea Nitrogen 14 mg/dL (8-23); Calcium 9.9 mg/dL (8.5-10.5); Carbon Dioxide 25 mmol/L (22-29); Chloride 100 mmol/L (98-107); Globulin 2.1 g/dL (1.3-4.6); Glucose 125 mg/dL (65-115); Lipase 13 U/L (13-60); NT Pro B Type Natriuretic Pept 1327 pg/mL (0-450); Osmolality Calculated 280 mOsm/kg (285-295); Potassium 3.7 mmol/L (3.5-5.1); Sodium 136 mmol/L (136-145); Total Bilirubin 0.5 mg/dL (0.15-1.2); Total Protein 6.5 g/dL (6.6-8.7)
--- NOTE | 2019-09-09 14:33 | ECG_ITS ---
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 Measurements Intervals [place] Rate: 73 P: LA: -1 QRS: -50 QRSD: 100 T: 13 QT: 406 QTc: 448 Interpretive Statements ATRIAL FIBRILLATION LEFT ANTERIOR FASCICULAR BLOCK ANTEROSEPTAL MYOCARDIAL INFARCTION, OF INDETERMINATE AGE Compared to ECG 09/09/2019 12:29:24 Left anterior fascicular block now present Left-axis deviation no longer present Myocardial infarct finding still present Electronically Signed On 09-10-2019 23:01:32 CDT by Cristal Tran M.D. [id number]
[2019-09-09 15:39] LABS: Troponin 5 2HR 18.73 ng/L (0-10); Troponin 5 2HR Delta 0.73 ABS# (0-10)
[2019-09-09 16:15] LABS: Bilirubin Urine Neg (NEGATIVE); Blood Urine Neg (Negative); Glucose Urine UA Norm (Normal); Ketones Urine Negative (Negative); Nitrate Urine Negative (Negative); Protein Urine Neg (Negative); Urine Appearance Clear (CLEAR); Urine Color Yellow (Yellow); pH Urine 5 (5-7)
[2019-09-09 16:16] LABS: Add Urine Culture? No; Add Urine Microscopic? YES; Bacteria Urine 1+; Leukocyte Esterase Urine Trace (Negative); Mucus Urine TRACE; RBC Urine 0-4 /hpf (0-2); Squamous Epithelial Cell Urine 0-4 (0-5); Urobilinogen Urine Neg (Negative); WBC Urine 0-4 /hpf (0-5)
--- NOTE | 2019-09-09 16:52 | PC.NURSE ---
entered room to find the pt. was in pain the rhythm was an a block. the was informed of this information
--- NOTE | 2019-09-09 17:16 | PC.NURSE ---
Patient asked if she could have food and drink. Doctor okayed it. Got the patient a turkey sandwich and iced water. Patient also requested coffee, doctor okayed that as well. Coffee with one creamer per patient request was given.
--- NOTE | 2019-09-09 17:18 | PC.NURSE ---
Patient is eating.
--- NOTE | 2019-09-09 18:14 | CTR_ITS ---
PROCEDURE INFORMATION: Exam: CT Chest With Contrast Exam date and time: 09/09/2019 8:01 PM Age: 78 years old Clinical indication: Other: No abd pain; Prior surgery; Surgery type: Hysterectomy; Patient HX: C/O chest pain with n/v x 3 days TECHNIQUE: Imaging protocol: Computed tomography of the chest with intravenous contrast. Radiation optimization: All CT scans at this facility use at least one of these dose optimization techniques: automated exposure control; mA and/or kV adjustment per patient size (includes targeted exams where dose is matched to clinical indication); or iterative reconstruction. Contrast material: OMNI 300; Contrast volume: 95 ml; Contrast route: INTRAVENOUS (IV); COMPARISON: No relevant prior studies available. RADIATION DOSE METRICS: Total DLP (mGy-cm): 1582.36 FINDINGS: Lungs: Mosaic attenuation throughout both lungs. Mild interstitial scarring in the lung bases. Small focal airspace opacity in the posterior left lower lobe. Pleural space: Unremarkable. No pneumothorax. No pleural effusion. Heart: Cardiomegaly. Small pericardial effusion. Aorta: Unremarkable. No aortic aneurysm. Lymph nodes: Unremarkable. No enlarged lymph nodes. Bones/joints: Old healed sternum fracture. Mild age indeterminate T12 compression fracture. Soft tissues: Unremarkable. IMPRESSION: 1. Small airspace opacity in the posterior left lower lobe is suspicious for pneumonia. 2. Small pericardial effusion. 3. Mosaic attenuation in both lungs most likely relates to air trapping due to small airways disease. 4. Age indeterminate mild T12 compression fracture. PROCEDURE INFORMATION: Exam: CT Abdomen And Pelvis With Contrast Exam date and time: 09/09/2019 8:01 PM Age: 78 years old Clinical indication: Other: No abd pain; Prior surgery; Surgery type: Hysterectomy; Patient HX: C/O chest pain with n/v x 3 days TECHNIQUE: Imaging protocol: Computed tomography of the abdomen and pelvis with intravenous contrast. Radiation optimization: All CT scans at this facility use at least one of these dose optimization techniques: automated exposure control; mA and/or kV adjustment per patient size (includes targeted exams where dose is matched to clinical indication); or iterative reconstruction. Contrast material: OMNI 300; Contrast volume: 95 ml; Contrast route: INTRAVENOUS (IV); COMPARISON: No relevant prior studies available. RADIATION DOSE METRICS: Total DLP (mGy-cm): 1582.36 FINDINGS: Liver: Normal. No mass. Gallbladder and bile ducts: Normal. No calcified stones. No ductal dilation. Pancreas: Normal. No ductal dilation. Spleen: Calcified granulomas in the spleen. Adrenals: Normal. No mass. Kidneys and ureters: Normal. No hydronephrosis. Stomach and bowel: Mild diverticulosis of the distal colon. The stomach is decompressed and normal with medical capsules. The small bowel is unremarkable with GI contrast passing into the proximal colon. Appendix: The appendix is visualized and is normal. Intraperitoneal space: Unremarkable. No free air. No significant fluid collection. Vasculature: Unremarkable. No abdominal aortic aneurysm. Lymph nodes: Unremarkable. No enlarged lymph nodes. Bladder: Unremarkable as visualized. Reproductive: The uterus and right ovary are not visualized. Small left ovary. Bones/joints: Mild age indeterminate L2 compression fracture. Lumbar scoliosis. Soft tissues: Unremarkable. CT/CT chest abd pel w con* IMPRESSION: 1. No acute abnormality identified in the abdomen or pelvis. 2. Age indeterminate mild L2 compression fracture. Radiation Dose CTDIVOL = (mGy): DLP = 1582.36~1582.36 (mGy-cm)
--- NOTE | 2019-09-09 18:17 | P.HP_ITS ---
Providers/Chief Complaint Admitting Physician: Santa Cox MD Primary Care Provider: Radha Martinez MD Chief Complaint: CP History of Present Illness Arielle Venkat Vences is a 78 year old female with past medical history of atrial fibrillation, chronic anticoagulation, anxiety/depression, hypertension, hypothyroidism came into the ER today because of retrosternal pain and epigastric pain radiating to back whenever she would eat for last 3 days getting worse yesterday morning. Pain would get worse both while eating solids or liquid along with nausea, belching but no vomiting. Patient states he has had GERD for a long time. She denies of having any chest pain, difficulty in br eathing at rest or exertion, similar complaints in the past, cough, fever, dysuria, diarrhea with last bowel movement yesterday, headache, dizziness, falls. She stated she has been having this discomfort for last 3 days and would always be brought upon by eating or drinking. She denies of any changes in her medications recently, use of any herbal products, any recent flulike symptoms, cough, exposure to COVID-19, sick contacts, recent gastroenteritis, recent travels, weight loss, night sweats, history of cancer. In ER her blood work showed a hemoglobin of 13.8, white count of 8, sodium of 136, creatinine of 0.8, baseline troponin of 18 with delta of 0.7 in 2 hours, BNP of 1327 with no baseline, UA showing trace leuk esterase. Review of Systems Const: Denies: fever(s), chills, body aches, change in appetite, malaise, night sweats, diaphoresis, change in sleep pattern, daytime sleepiness or snoring Eyes: Denies: change in vision, blurry vision, photophobia, eye discomfort or eye discharge ENMT: Denies: throat pain, enlarged tonsils, hoarseness, mouth pain, oral sores, dry mouth, tinnitus, nasal congestion or post nasal drip Card: Denies: chest pain, palpitations, irregular heart rhythm, edema, swelling of feet/ankles, lightheadedness, syncope, pre-syncope, dyspnea on exertion, orthopnea, leg pain with exertion or acrocyanosis Resp: Denies: dyspnea, productive cough, non-productive cough, wheezing, stridor, pain on inspiration, change in phlegm color, hemoptysis or chest congestion GI: Reports: abdominal pain, nausea and dysphagia; Denies: vomiting, hematemesis, coffee ground emesis, heartburn, diarrhea, constipation, bloating, GI cramping, change in bowel habits, pain on defecation, hematochezia or melena : Denies: flank pain, dysuria, urinary frequency, urinary urgency, urinary hesitancy, nocturia or hematuria Musc: Denies: neck pain, back pain, extremity pain, joint pain, joint swelling, joint redness, joint stiffness or limited range of motion Neuro: Denies: headache(s), numbness in extremities, weakness in extremities, sensory changes, lack of coordination, difficulty walking, frequent falls, dizziness, vertigo, confusion, Slurred speech present, difficulty communicating thoughts or seizure-like activity Psych: Denies: anxiety, depression, mood swings, panic attacks, hopelessness or irritability Endo: Denies: polyuria, polydipsia, tired all the time, cold intolerance, exce ssive sweating, flushing or heat intolerance Chito/Lymph: Denies: easy bruising or easy bleeding All/Imm: Denies: tongue swelling, facial swelling or acute wheezing Medications/Allergies Home Medications Medication Instructions Recorded Confirmed Last Taken Type apixaban 5 mg tablet 5 mg PO BID 04/06/19 09/09/19 09/08/19 History calcium carbonate 500 mg calcium 500 mg PO BID 04/06/19 09/09/19 09/08/19 History (1,250 mg) tablet digoxin 125 mcg (0.125 mg) tablet 125 mcg PO DAILY tab 04/06/19 09/09/19 09/08/19 History diltiazem HCl 360 mg See Rx Instructions .ROUTE .COMPLEX 04/06/19 09/09/19 Unknown History capsule,extended release 24 hr furosemide 40 mg tablet 20 mg PO QAM 04/06/19 09/09/19 09/08/19 History gabapentin 600 mg tablet 600 mg PO TID 04/06/19 09/09/19 09/08/19 History levothyroxine 88 mcg tablet 88 mcg PO DAILY tab 04/06/19 09/09/19 09/08/19 History lisinopril 10 mg tablet 10 mg PO DAILY tab 04/06/19 09/09/19 09/08/19 History loratadine 10 mg tablet 10 mg PO DAILY 04/06/19 09/09/1920 History mirabegron 50 mg tablet,extended 50 mg PO Q24H 04/06/19 09/09/19 09/08/19 History release 24 hr omeprazole 20 mg capsule,delayed 20 mg PO DAILY cap 04/06/19 09/09/19 09/08/19 History release tizanidine 2 mg capsule 4 mg PO BID PRN 04/06/19 09/09/19 09/08/19 History Anoro Ellipta 1 inh INHALATION DAILY 05/11/19 09/09/19 09/08/19 History Thera-Tabs 1 tab PO BID 05/11/19 09/09/19 09/08/19 History alendronate 70 mg PO Q7D 05/11/19 09/09/19 Unknown History amlodipine [Norvasc] 10 mg PO DAILY 05/11/19 09/09/19 09/08/19 History cholecalciferol (vitamin D3) 50,000 unit PO Q7D 05/11/19 09/09/19 Unknown History duloxetine [Cymbalta] 60 mg PO DAILY 05/11/19 09/09/19 09/08/19 History hydrocodone-acetaminophen [[place]] 1 tab PO TID PRN 05/11/19 09/09/19 09/06/19 History hydroxyzine pamoate 25 mg PO BEDTIME PRN 05/11/19 09/09/19 09/08/19 History montelukast [Singulair] 10 mg PO DAILY 05/11/19 09/09/19 09/08/19 History potassium chloride 20 meq PO 5XD 05/11/19 09/09/19 09/08/19 History pravastatin 20 mg PO DAILY 05/11/19 09/09/19 09/08/19 History trazodone 25 - 50 mg PO BEDTIME PRN 05/11/19 09/09/19 09/08/19 History Flonase Allergy Relief 1 - 2 spray INTRANASAL DAILY 09/09/19 09/09/19 09/08/19 History Ventolin HFA 2 puff INHALATION Q4H PRN 09/09/19 09/09/19 Unknown History meloxicam 7.5 mg PO DAILY 09/09/19 09/09/19 09/08/19 History nitroglycerin 0.4 mg SUBLINGUAL Q5M PRN #30 tab 09/09/19 Unknown Rx Allergies Allergy/AdvReac Type Severity Reaction Status Date / Time No Known Allergies Allergy Verified 09/09/19 15:40 PFSH Acute 2 PFSH: Medical History Acid reflux Afib Anal fissure Chronic back pain Chronic systolic (congestive) heart failure COPD (chronic obstructive pulmonary disease) Essential hypertension Flu-like symptoms Lymphedema of both lower extremities Mixed hyperlipidemia Surgical History History of hysterectomy Social History (Updated 09/09/19 @ 18:24 by Haider Barcenas MD) Smoking and tobacco status: former smoker Alcohol intake: never Substance/Drug Use: never Vitals/I&O/Wt Last Vital Signs Temp 97.6 F 09/09/19 18:04 Pulse 80 09/09/19 18:04 Resp 20 H 09/09/19 18:04 BP 139/84 09/09/19 18:04 Pulse Ox 92 09/09/19 18:04 Weight last 48 hrs Weight 80.286 kg Data : 09/09/19 12:56 09/09/19 12:56 A&P Assessment and plan (1) Abdominal pain: Status: Acute (2) Dysphagia: Status: Acute (3) Chest pain: Status: Acute Qualifiers: Chest pain type: chest pain due to myocardial ischemia Ischemic chest pain type: stable angina pectoris Qualified Code(s): I20.8 - Other forms of angina pectoris (4) Acid reflux: Status: Acute (5) Afib: Status: Acute (6) Chronic systolic (congestive) heart failure: Status: Acute (7) Essential hypertension: Status: Acute (8) Mixed hyperlipidemia: Status: Acute Additional A&P Information Dysphagia/abdominal pain/chest pain: Etiology of patient's symptoms could be varied. We will have to rule out CAD. Patient's troponins have been done we will cycle them through along with EKG. If troponins are elevated with a positive delta we will start patient on aspirin and full dose Lovenox. We will hold off for now. Check lipid panel, HbA1c, TSH. Cannot rule out intra-abdominal pathology: We will do CT chest abdomen pelvis with IV and oral contrast to evaluate for pancreas, liver, possible hiatal hernia. Lipase within normal limits, liver functions are normal as well. Check digoxin levels to rule out digoxin toxicity, H. pylori antigen, urine drug screen. Atrial fibrillation: Rate controlled: Last echocardiogram in 2018 shows an EF of 84% with moderate mitral regurgitation. Continue home dose of digoxin, not sure of the dose of Cardizem for now will start on 90 every 6 hourly. It seems patient takes 360 mg daily. Continue with Eliquis at home dose. We will hold off on Lasix for now as patient looks really dehydrated we will start patient on normal saline at 50 cc/h. Watch for fluid overload. History of heart failure: Most likely diastolic: Euvolemic to be hydrated for now. Hold off on Lasix. Hypertension: Blood pressure at acceptable range for now. Continue home dose of amlodipine, lisinopril. Continue chronic home medications like duloxetine, gabapentin, [place] as needed, loratadine, meloxicam, pravastatin, trazodone, nebulizations. We will change medication as per the clinical picture and results of the investigations. Full code. Clear liquid diet. Eliquis Attestations Medical Necessity Statement*: Less than 2 midnights for evaluation of dysphagia Time Spent in Patient Care: Greater than 35 minutes (>than 50% of time spent in counselling and/or direct pt care on unit) . 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
--- NOTE | 2019-09-09 18:19 | ECG_ITS ---
[facility] Test Date: 2019-09-09 Pat Name: Arielle Vences Department: Room: 102 Gender: Female Bar Tender: : 1940 Requested By: Haider Barcenas Order Number: [id number] Reba MD: Cristal Tran M.D. Measurements Intervals [place] Rate: 73 P: SC: -1 QRS: -46 QRSD: 95 T: 42 QT: 406 QTc: 448 Interpretive Statements ATRIAL FIBRILLATION LEFT ANTERIOR FASCICULAR BLOCK MINIMAL ST DEPRESSION Compared to ECG 09/09/2019 16:05:13 ST (T wave) deviation now present Myocardial infarct finding no longer present Electronically Signed On 09-10-2019 22:51:53 CDT by Cristal Tran M.D. [id number]
--- NOTE | 2019-09-09 18:30 | PC.NURSE ---
during patient admission questions patient begins to report chest pain mid sternal rated 5/[address] creased SOB Dr quiroz notified instructions to obtain EKG give maalox protonix and zofran and continue to monitor further testing ordered. Times 1 doses of maalox protonix approved so patient could have a dose to night will continue to monitor
[2019-09-09] MEDS: pantoprazole DR 40 mg Tablet PO (18:47)
[2019-09-09] MEDS: dilTIAZem 60 mg Tablet 90 MG PO (18:47)
[2019-09-09] MEDS: alum-mag-hydroxide-sime 30 mL UDC 15 ML PO (18:48)
[2019-09-09] MEDS: ondansetron 2 mg/ML SDV 2 mL 4 MG IVP (18:48)
[2019-09-09 18:53] LABS: Procalcitonin 0.04 ng/mL (0-0.5)
[2019-09-09 18:54] LABS: Digoxin 0.5 ng/mL (0.6-1.2); Magnesium 2.3 mg/dL (1.7-2.3); Thyroid Stimulating Hormone 2.29 uIU/mL (0.27-4.20)
[2019-09-09 19:04] LABS: Iron 66 ug/dL (37-145); Total Iron Binding Capacity 314 mcg/dl; Unsaturated Iron Binding 248 ug/dL (112-347)
--- NOTE | 2019-09-09 19:15 | PC.NURSE ---
Received bedside report from Mora Vargas RN. Patient resting in bed watching tv. Medications being administered by day RN. Instruction was given regarding medications. Patient verbalized complete understanding. Crackers provided at patient request. Patient denies other needs or pain at this time. No distress observed.
[2019-09-09] MEDS: ipratropium-albuterol 3 mL Neb INHALATION (20:01)
[2019-09-09 20:03] LABS: Lactic Sepsis W/Reflex 1.1 mmol/L (0.5-2.2)
[2019-09-09 20:18] LABS: Troponin 5 6HR 18.88 ng/L (0-10); Troponin 5 6HR Delta 0.88 ng/L (0-12)
[2019-09-09] MEDS: potassium chloride ER 10 mEq Tablet 20 MEQ PO (20:40)
[2019-09-09] MEDS: trazodone 50 mg Tablet 25 MG PO (20:41)
[2019-09-09] MEDS: gabapentin 300 mg Capsule 600 MG PO (20:41)
[2019-09-09] MEDS: iohexol 300 mg/mL 100 mL Btl IV (22:10)
--- NOTE | 2019-09-09 22:52 | PC.NURSE ---
Addendum entered by Ivon Moya RN 09/09/19 23:10: Printed strips and placed in patient's chart showing slowing heart rate. Original Note: Patient heart rate currently running 63 with intermittent drop in the upper 40s. Informed Dr Jj and received orders to Not give cardizem 90mg at 0030 as originally ordered and to change Cardizem to 60mg every 6 hours beginning at 0600 09/10/19.
[2019-09-10] VITALS (7 sets, daily range): BP systolic 114–132; BP diastolic 63–92; PULSE 67–103; RESP 15–19; TEMP 36.1–36.7; O2SAT 91–99
--- NOTE | 2019-09-10 01:24 | PC.NURSE ---
Patient SpO2 decreases with sleep to mid 70s. Assessed patient and observed patient breathing shallow with snoring at time. Placed NC with 2L O2 to bring SpO2 to 96%. Instructed patient on use of oxygen. Patient verbalized understanding. Patient denies any needs or discomforts at this time. No further distress observed.
--- NOTE | 2019-09-10 03:27 | PC.NURSE ---
Patient continues have heart rate dropping into the mid 20s briefly during sleep, never sustaining. Patient primarily sustains mid 60s. Patient is asymptomatic and denies pain or discomforts. No distress observed. Informed Dr Jj. Received order to hold Cardizem for now. Strips printed and placed in patient's chart.
[2019-09-10] MEDS: potassium chloride ER 10 mEq Tablet 20 MEQ PO ×2 (05:07→10:22)
[2019-09-10 05:49] LABS: Basophils % 0.6 %; Eosinophils # 0.4 10^3/uL (0.0-0.8); Eosinophils % 6.4 %; Hemoglobin 12.9 g/dL (11.5-15.3); Lymphocytes # 1.4 10^3/uL (0.8-4.8); Lymphocytes % 21.7 %; Mean Corpuscular HGB Conc 31.5 g/dL (30.0-36.0); Mean Corpuscular Hemoglobin 29.7 pg (28.0-34.0); Mean Corpuscular Volume 94.3 fL (81-99); Mean Platelet Volume 9.9 fL (7.4-10.4); Monocytes # 0.6 10^3/uL (0.2-0.9); Monocytes % 10.3 %; Neutrophils # 3.8 10^3/uL (1.8-7.7); Neutrophils % 60.7 %; Nucleated Red Blood Cells % 0 %; Platelet Count 192 10^3/cmm (130-400); Red Blood Count 4.35 10^6/uL (4.1-5.3); Red Cell Distribution Width 12.7 % (12.1-15.1); White Blood Count 6.2 10^3/uL (4.0-10.0)
[2019-09-10 06:14] LABS: Cholesterol 163 mg/dL (0-200); HDL Cholesterol 48 mg/dL (60-100); LDL Cholesterol Calculated 82 mg/dL (50-129); Triglycerides 166 mg/dL (0-150); VLDL Cholestrol Calculation 33 mg/dL (0-30)
[2019-09-10 06:15] LABS: Alanine Aminotransferase 10 U/L (0-33); Alkaline Phosphatase 62 IU/L (35-105); Anion Gap 14.7 (5-19); Aspartate Amino Transferase 16 U/L (0-32); Blood Urea Nitrogen 12 mg/dL (8-23); Calcium 9.6 mg/dL (8.5-10.5); Carbon Dioxide 26 mmol/L (22-29); Chloride 104 mmol/L (98-107); Globulin 1.6 g/dL (1.3-4.6); Glucose 101 mg/dL (65-115); Magnesium 2.3 mg/dL (1.7-2.3); Osmolality Calculated 286 mOsm/kg (285-295); Potassium 4.7 mmol/L (3.5-5.1); Sodium 140 mmol/L (136-145); Total Bilirubin 0.4 mg/dL (0.15-1.2); Total Protein 5.6 g/dL (6.6-8.7)
[2019-09-10 06:27] LABS: Estmated Average Glucose 137; Hemoglobin A1C 6.4 % (4.0-6.0)
[2019-09-10] MEDS: ipratropium-albuterol 3 mL Neb INHALATION (09:04)
[2019-09-10] MEDS: budesonide 0.5 mg/2 mL Neb INHALATION (09:04)
--- NOTE | 2019-09-10 09:56 | PC.CHAP ---
Pastoral Care Encounter/Spiritual Assessment Type of Contact [] Declined communications scientist visit [] Patient/Family/Request visit [] Outpatient visit [] Follow-up visit [] Physician referral [] Code/Alert [X] Routine visit [] Staff referral [] Actively dying [] Patient sleeping [] Family support [] [] Out of room [] Palliative care [] [] Receiving care in room [] Pre-surgical visit [] Trauma [] Long length of stay [] ICU visit [] Other: Relational/Emotional Strength [] Patient feels connected with others/family/visitors/staff [] Distress [] Loneliness/isolation [] Abandonment Spirituality of Patient [X] Person of Ashleigh [] Attends Gnosticism of their Ashleigh [] Believes in Prayer [] Reads Bible or Caodaism materials [] There are Spiritual issues to be addressed Pompom Maker Interventions [] Prayer [] Active listening [] Non-anxious presence [] Spiritual/emotional support [] Crisis/trauma care [] Spiritual counseling [] Bereavement support [] Provided bereavement packet [] Provided Bible/devotional materials [] Provided toy/stuffed animal, coloring book to patient or family member [] Provided Communion [] Anointing/Maynard [] Salvation [] Completed spiritual assessment [] Other: Impact on Illness or Injury [] Angry [] Fearful [] Anxious [] Often cries [] Exhaustion [] Unable to work [] Unable to attend confucianism [] Unable to walk/stand [] Unable to read [] Unable to drive [] Unable to eat/drink [] Unable to sleep [] Unable to be with family [] Patient intubated [] Other: Summary GOOD SPIRITS, GOOD HUMOR, NO WORRYING ABOUT VISIT. Time spent with patient
[2019-09-10] MEDS: duloxetine 60 mg Capsule PO (10:04)
[2019-09-10] MEDS: gabapentin 300 mg Capsule 600 MG PO (10:05)
[2019-09-10] MEDS: meloxicam 7.5 mg tablet PO (10:05)
[2019-09-10] MEDS: digoxin 125 mcg Tablet PO (10:05)
[2019-09-10] MEDS: loratadine 10 mg Tablet PO (10:05)
[2019-09-10] MEDS: levothyroxine 88 mcg Tablet PO (10:05)
[2019-09-10] MEDS: atorvastatin 40 mg Tablet 20 MG PO (10:06)
[2019-09-10] MEDS: multivitamin therapeutic Tablet 1 TAB PO (10:06)
[2019-09-10] MEDS: montelukast sodium 10 mg Tablet PO (10:07)
[2019-09-10] MEDS: lisinopril 10 mg Tablet PO (10:07)
[2019-09-10] MEDS: amlodipine 10 mg Tablet PO (10:07)
[2019-09-10] MEDS: pantoprazole DR 40 mg Tablet PO (10:07)
[2019-09-10] MEDS: alum-mag-hydroxide-sime 30 mL UDC 15 ML PO (10:08)
[2019-09-10] MEDS: apixaban 5 mg Tablet PO (10:08)
[2019-09-10] MEDS: fluticasone nasal spray 16gm Btl 1 SPRAY INTRANASAL (10:10)
--- NOTE | 2019-09-10 12:50 | PM.DCS ---
Discharge Providers Date of Admission: 09/09/19 17:00 Date of Discharge: September 10, 2019 Attending Provider at Admission: Santa Cox MD Attending Provider at Discharge: Haider Barcenas MD Primary Care Provider: Radha Martinez MD Diagnoses at Discharge Discharge Diagnosis (1) Abdominal pain: Status: Acute (2) Dysphagia: Status: Acute (3) Chest pain: Status: Acute Qualifiers: Chest pain type: chest pain due to myocardial ischemia Ischemic chest pain type: stable angina pectoris Qualified Code(s): I20.8 - Other forms of angina pectoris (4) Acid reflux: Status: Acute (5) Afib: Status: Acute (6) Chronic systolic (congestive) heart failure: Status: Acute (7) Essential hypertension: Status: Acute (8) Mixed hyperlipidemia: Status: Acute Reason for Visit Reason for Visit: CP Hospital Course Discharge Summary: Arielle Vences is a 78 year old female with past medical history of atrial fibrillation, chronic anticoagulation, anxiety/depression, hypertension, hypothyroidism came into the ER today because of retrosternal pain and epigastric pain radiating to back whenever she would eat for last 3 days getting worse yesterday morning. Pain would get worse both while eating solids or liquid along with nausea, belching but no vomiting. Patient states he has had GERD for a long time. She denies of having any chest pain, difficulty in breathing at rest or exertion, similar complaints in the past, cough, fever, dysuria, diarrhea with last bowel movement yesterday, headache, dizziness, falls. She stated she has been having this discomfort for last 3 days and would always be brought upon by eating or drinking. She denies of any changes in her medications recently, use of any herbal products, any recent flulike symptoms, cough, exposure to COVID-19, sick contacts, recent gastroenteritis, recent travels, weight loss, night sweats, history of cancer. In ER her blood work showed a hemoglobin of 13.8, white count of 8, sodium of 136, creatinine of 0.8, baseline troponin of 18 with delta of 0.7 in 2 hours, BNP of 1327 with no baseline, UA showing trace leuk esterase. She was admitted to the hospital for further work-up of dysphagia. Cardiac causes was ruled out by subnormal digoxin levels, no requirement of oxygen while admitted, normal and negative delta tropes. For gastric causes patient was started on antacid, simethicone, Carafate to which she reported responded well. CT abdomen chest pelvis with contrast was done which was negative for any acute pathology. CT scan was also negative for any hiatal hernia. H. pylori test was sent and the results are awaited. During hospitalization there is a lot of confusion regarding patient's home medication. Family was not aware of proper medications. It was written on her home med list and from her previous note from her primary care provider that patient is on Cardizem 360 mg daily for her AF atrial fibrillation. Patient received Cardizem 90 mg every 6 hourly and after first dose of 90 mg her heart rate dropped to 40 bpm during the night. Her dose of Cardizem has been changed to 30 mg every 6 hours. Patient is asked to keep checking her heart rate while at home and to not take Cardizem if her heart rates are below 60 bpm. Patient is been discharged hemodynamically stable condition with advised to follow-up with surgery if her symptoms persist for an EGD. She is also advised to follow-up with Dr. Christopher next 7 to 10 days after maintaining a blood pressure and heart rate diary for proper medical reconciliation of her drugs. Physical Exam Narrative: EXAM NARRATIVE: General: No acute distress, AO x3 HEENT: PERRLA, pupils bilaterally equal and reactive Chest: Normal vesicular breath sounds, no added sounds, equal good air entry bilaterally CVS: S1-S2 regular, no murmurs, no tachycardia, no gallops, no rubs Abdomen: Soft, mild epigastric tenderness, no rebound or guarding , no organomegaly, bowel sounds present Neuro: No focal deficits, no facial deformity, AO x3, power 5/5 in all limbs Discharge Data Data Completed and Pending: Completed Studies During Hospitalization Category Date Time Status CT chest abd pel w con* Urgent Cat Scan 09/09/19 18:14 Completed XR chest 1V enma ble [id number] Stat Exams 09/09/19 12:33 Completed Pending at discharge Category Date Time Status Blood Culture Sta t Lab 09/09/19 19:42 Results Drug Screen, Urin e Stat Lab 09/09/19 18:29 Ordered Labs from last 24 hours 09/10/19 09/10/19 09/10/19 05:26 05:26 05:26 WBC 6.2 RBC 4.35 Hgb 12.9 Hct 41.0 MCV 94.3 MCH 29.7 MCHC 31.5 RDW 12.7 Plt Count 192 MPV 9.9 Neut % (Auto) 60.7 Lymph % (Auto) 21.7 [place] % (Auto) 10.3 Eos % (Auto) 6.4 Baso % (Auto) 0.6 Neut # (Auto) 3.8 Lymph # (Auto) 1.4 [place] # (Auto) 0.6 Eos # (Auto) 0.4 Baso # (Auto) 0.0 Nucleated RBC % (a uto) 0 Nucleated RBCs # 0.0 D-Dimer Sodium 140 Potassium 4.7 Chloride 104 Carbon Dioxide 26 Anion Gap 14.7 BUN 12 Creatinine 0.9 Glucose 101 Estimat Average Gl ucose Hemoglobin A1c Calculated Osmolal ity 286 Lactic Acid Calcium 9.6 Magnesium 2.3 Iron TIBC % Saturation Unsat Iron Binding Total Bilirubin 0.4 AST 16 ALT 10 Alkaline Phosphata se 62 Troponin I 6 Hour Troponin I Hi Sens Del Troponin T Baselin e Troponin T 120 Min [place] Troponin T NT-Pro-B Natriuret Pep Total Protein 5.6 L Albumin 4.0 Globulin 1.6 Triglycerides 166 H Cholesterol 163 LDL Cholesterol, C alc 82 Total VLDL Cholest lauren 33 H HDL Cholesterol 48 L Cholesterol/HDL Ra cece 3.40 Lipase Procalcitonin TSH Urine Color Urine Appearance Urine pH Ur Specific Gravit y Urine Protein Urine Glucose (UA) Urine Ketones Urine Blood Urine Nitrate Urine Bilirubin Urine Urobilinogen Ur Leukocyte Vale ase Urine RBC Urine WBC Ur Squamous Epith Cells Urine Bacteria Urine Mucus Digoxin 09/10/19 09/09/19 09/09/19 05:26 19:39 19:39 WBC RBC Hgb Hct MCV MCH MCHC RDW Plt Count MPV Neut % (Auto) Lymph % (Auto) [place] % (Auto) Eos % (Auto) Baso % (Auto) Neut # (Auto) Lymph # (Auto) [place] # (Auto) Eos # (Auto) Baso # (Auto) Nucleated RBC % (a uto) Nucleated RBCs # D-Dimer Sodium Potassium Chloride Carbon Dioxide Anion Gap BUN Creatinine Glucose Estimat Average Gl ucose 137 Hemoglobin A1c 6.4 H Calculated Osmolal ity Lactic Acid 1.1 Calcium Magnesium Iron TIBC % Saturation Unsat Iron Binding Total Bilirubin AST ALT Alkaline Phosphata se Troponin I 6 Hour 18.88 H Troponin I Hi Sens Del 0.88 Troponin T Baselin e Troponin T 120 Min [place] Troponin T NT-Pro-B Natriuret Pep Total Protein Albumin Globulin Triglycerides Cholesterol LDL Cholesterol, C alc Total VLDL Cholest lauren HDL Cholesterol Cholesterol/HDL Ra cece Lipase Procalcitonin TSH Urine Color Urine Appearance Urine pH Ur Specific Gravit y Urine Protein Urine Glucose (UA) Urine Ketones Urine Blood Urine Nitrate Urine Bilirubin Urine Urobilinogen Ur Leukocyte Vale ase Urine RBC Urine WBC Ur Squamous Epith Cells Urine Bacteria Urine Mucus Digoxin 09/09/19 09/09/19 09/09/19 15:40 15:02 12:56 WBC RBC Hgb Hct MCV MCH MCHC RDW Plt Count MPV Neut % (Auto) Lymph % (Auto) [place] % (Auto) Eos % (Auto) Baso % (Auto) Neut # (Auto) Lymph # (Auto) [place] # (Auto) Eos # (Auto) Baso # (Auto) Nucleated RBC % (a uto) Nucleated RBCs # D-Dimer Sodium Potassium Chloride Carbon Dioxide Anion Gap BUN Creatinine Glucose Estimat Average Gl ucose Hemoglobin A1c Calculated Osmolal ity Lactic Acid Calcium Magnesium 2.3 Iron TIBC % Saturation Unsat Iron Binding Total Bilirubin AST ALT Alkaline Phosphata se Troponin I 6 Hour Troponin I Hi Sens Del Troponin T Baselin e Troponin T 120 Min [place] 18.73 H [place] Troponin T 0.73 NT-Pro-B Natriuret Pep Total Protein Albumin Globulin Triglycerides Cholesterol LDL Cholesterol, C alc Total VLDL Cholest lauren HDL Cholesterol Cholesterol/HDL Ra cece Lipase Procalcitonin TSH 2.29 Urine Color Yellow Urine Appearance Clear Urine pH 5 Ur Specific Gravit y 1.020 Urine Protein Neg Urine Glucose (UA) Norm Urine Ketones Negative Urine Blood Neg Urine Nitrate Negative Urine Bilirubin Neg Urine Urobilinogen Neg Ur Leukocyte Vale ase Trace H Urine RBC 0-4 H Urine WBC 0-4 H Ur Squamous Epith Cells 0-4 H Urine Bacteria 1+ H Urine Mucus Trace Digoxin 0.5 L 09/09/19 09/09/19 09/09/19 12:56 12:56 12:56 WBC RBC Hgb Hct MCV MCH MCHC RDW Plt Count MPV Neut % (Auto) Lymph % (Auto) [place] % (Auto) Eos % (Auto) Baso % (Auto) Neut # (Auto) Lymph # (Auto) [place] # (Auto) Eos # (Auto) Baso # (Auto) Nucleated RBC % (a uto) Nucleated RBCs # D-Dimer Sodium 136 Potassium 3.7 Chloride 100 Carbon Dioxide 25 Anion Gap 14.7 BUN 14 Creatinine 0.8 Glucose 125 H Estimat Average Gl ucose Hemoglobin A1c Calculated Osmolal ity 280 L Lactic Acid Calcium 9.9 Magnesium Iron 66 TIBC 314 % Saturation 21.0 Unsat Iron Binding 248 Total Bilirubin 0.5 AST 17 ALT 10 Alkaline Phosphata se 64 Troponin I 6 Hour Troponin I Hi Sens Del Troponin T Baselin e 18 H Troponin T 120 Min [place] Troponin T NT-Pro-B Natriuret Pep 1327 H Total Protein 6.5 L Albumin 4.4 Globulin 2.1 Triglycerides Cholesterol LDL Cholesterol, C alc Total VLDL Cholest lauren HDL Cholesterol Cholesterol/HDL Ra cece Lipase 13 Procalcitonin 0.04 TSH Urine Color Urine Appearance Urine pH Ur Specific Gravit y Urine Protein Urine Glucose (UA) Urine Ketones Urine Blood Urine Nitrate Urine Bilirubin Urine Urobilinogen Ur Leukocyte Vale ase Urine RBC Urine WBC Ur Squamous Epith Cells Urine Bacteria Urine Mucus Digoxin 09/09/19 09/09/19 12:56 12:56 WBC 8.0 RBC 4.74 Hgb 13.8 Hct 43.8 MCV 92.4 MCH 29.1 MCHC 31.5 RDW 12.5 Plt Count 207 MPV 9.6 Neut % (Auto) 74.9 Lymph % (Auto) 13.1 [place] % (Auto) 8.4 Eos % (Auto) 3.0 Baso % (Auto) 0.3 Neut # (Auto) 6.0 Lymph # (Auto) 1.1 [place] # (Auto) 0.7 Eos # (Auto) 0.2 Baso # (Auto) 0.0 Nucleated RBC % (a uto) 0 Nucleated RBCs # 0.0 D-Dimer 0.29 Sodium Potassium Chloride Carbon Dioxide Anion Gap BUN Creatinine Glucose Estimat Average Gl ucose Hemoglobin A1c Calculated Osmolal ity Lactic Acid Calcium Magnesium Iron TIBC % Saturation Unsat Iron Binding Total Bilirubin AST ALT Alkaline Phosphata se Troponin I 6 Hour Troponin I Hi Sens Del Troponin T Baselin e Troponin T 120 Min [place] Troponin T NT-Pro-B Natriuret Pep Total Protein Albumin Globulin Triglycerides Cholesterol LDL Cholesterol, C alc Total VLDL Cholest lauren HDL Cholesterol Cholesterol/HDL Ra cece Lipase Procalcitonin TSH Urine Color Urine Appearance Urine pH Ur Specific Gravit y Urine Protein Urine Glucose (UA) Urine Ketones Urine Blood Urine Nitrate Urine Bilirubin Urine Urobilinogen Ur Leukocyte Vale ase Urine RBC Urine WBC Ur Squamous Epith Cells Urine Bacteria Urine Mucus Digoxin Addt'l Data from Hospital Stay: CT chest abdomen pelvis with contrast IMPRESSION: 1. Small airspace opacity in the posterior left lower lobe is suspicious for pneumonia. 2. Small pericardial effusion. 3. Mosaic attenuation in both lungs most likely relates to air trapping due to small airways disease. 4. Age indeterminate mild T12 compression fracture. FINDINGS: Liver: Normal. No mass. Gallbladder and bile ducts: Normal. No calcified stones. No ductal dilation. Pancreas: Normal. No ductal dilation. Spleen: Calcified granulomas in the spleen. Adrenals: Normal. No mass. Kidneys and ureters: Normal. No hydronephrosis. Stomach and bowel: Mild diverticulosis of the distal colon. The stomach is decompressed and normal with medical capsules. The small bowel is unremarkable with GI contrast passing into the proximal colon. Appendix: The appendix is visualized and is normal. Intraperitoneal space: Unremarkable. No free air. No significant fluid collection. Vasculature: Unremarkable. No abdominal aortic aneurysm. Lymph nodes: Unremarkable. No enlarged lymph nodes. Bladder: Unremarkable as visualized. Reproductive: The uterus and right ovary are not visualized. Small left ovary. Bones/joints: Mild age indeterminate L2 compression fracture. Lumbar scoliosis. Soft tissues: Unremarkable. CT/CT chest abd pel w con* IMPRESSION: 1. No acute abnormality identified in the abdomen or pelvis. 2. Age indeterminate mild L2 compression fracture. Vitals: Last Vital Signs Temp 98.0 F 09/10/19 11:26 Pulse 92 09/10/19 11:26 Resp 17 09/10/19 11:26 BP 114/79 09/10/19 11:26 Pulse Ox 91 09/10/19 11:26 Discharge Plan Discharge Patient Disposition: Home, Self-Care Condition: Stable Prescriptions: New nitroglycerin 0.4 mg tablet, sublingual 0.4 mg SUBLINGUAL Q5M PRN (Reason: chest pain) Qty: 30 RF: 0 Mag-Al Plus 200-200-20 mg/5 mL Suspension 15 ml PO BID PRN (Reason: Acid Reflux) 14 Days RF: 0 Dexilant 60 mg capsule,biphase delayed releas 60 mg PO DAILY 56 Days Qty: 60 RF: 0 Carafate 100 mg/mL suspension 1 gm PO BID 56 Days Qty: 1120 RF: 0 diltiazem HCl 60 mg tablet 30 mg PO Q8H Qty: 30 RF: 0 Continued lisinopril 10 mg tablet 10 mg PO DAILY RF: 0 levothyroxine 88 mcg tablet 88 mcg PO DAILY RF: 0 digoxin 125 mcg (0.125 mg) tablet 125 mcg PO DAILY RF: 0 Eliquis 5 mg tablet 5 mg PO BID RF: 0 furosemide 40 mg tablet 20 mg PO QAM RF: 0 gabapentin 600 mg tablet 600 mg PO TID RF: 0 loratadine 10 mg tablet 10 mg PO DAILY RF: 0 Myrbetriq 50 mg tablet extended release 24 hr 50 mg PO Q24H RF: 0 calcium carbonate [[place]yster [place] Calcium] 500 mg calcium (1,250 mg) tablet 500 mg PO BID RF: 0 tizanidine 2 mg capsule 4 mg PO BID PRN (Reason: Spasms) RF: 0 trazodone 50 mg Tablet 25 - 50 mg PO BEDTIME PRN (Reason: Sleep) RF: 0 alendronate 70 mg tablet 70 mg PO Q7D RF: 0 Thera-Tabs Tablet 1 tab PO BID RF: 0 hydrocodone-acetaminophen [[place]] 10-325 mg Tablet 1 tab PO TID PRN (Reason: Pain) RF: 0 amlodipine [Norvasc] 10 mg Tablet 10 mg PO DAILY RF: 0 montelukast [Singulair] 10 mg Tablet 10 mg PO DAILY RF: 0 pravastatin 20 mg Tablet 20 mg PO DAILY RF: 0 hydroxyzine pamoate 25 mg Capsule 25 mg PO BEDTIME PRN (Reason: unknown) RF: 0 duloxetine [Cymbalta] 60 mg Capsule,Delayed Release(Dr/Ec) 60 mg PO DAILY RF: 0 cholecalciferol (vitamin D3) 1,250 mcg (50,000 unit) capsule 50,000 unit PO Q7D RF: 0 Anoro Ellipta 62.5-25 mcg/actuation Blister With Device 1 inh INHALATION DAILY RF: 0 meloxicam 7.5 mg tablet 7.5 mg PO DAILY RF: 0 Ventolin HFA 90 mcg/actuation Hfa Aerosol Inhaler 2 puff INHALATION Q4H PRN (Reason: Shortness Of Breath) RF: 0 Flonase Allergy Relief 50 mcg/actuation [facility],Suspension 1 - 2 spray INTRANASAL DAILY RF: 0 Discontinued diltiazem HCl 360 mg capsule,extended release 24hr See Rx Instructions .ROUTE .COMPLEX RF: 0 omeprazole 20 mg capsule,delayed release(DR/EC) 20 mg PO DAILY RF: 0 potassium chloride 20 mEq Tablet Extended Release 20 meq PO 5XD RF: 0 Discharge Orders: Discharge Order (Routine); Ordered 09/09/19 Ordered By: Sarah Cheney Referrals: Vidal Christopher MD [Physician] - 2 weeks ([facility] will be calling to schedule a cardiology followup. If you don't hear from them by Thursday, please give them a call) Roger Moreno MD [Physician] - 7-10 days ([facility] will be calling to schedule a followup with Dr. Moreno. ) Radha Martinez MD [Primary Care Provider] - 4-7 days ([facility] will be calling to schedule a hospital followup to be seen in 4 to 7 days. If you don't hear from them by Thursday, please give them a call. Thank you) Discharge Diet: Cardiac and GI Soft Discharge Activity: Resume usual activity Patient Instructions: Angina (ED) Activity Restrictions/Additional Instructions: If your symptoms persist for more than 10 days please follow-up with Dr. Moreno for possible EGD next 10 days. Follow-up with Dr. Christopher within 7 to 10 days for reconciliation of her cardiac medications. Before following up please maintain a blood pressure and heart rate chart. Her dose of Cardizem has been changed to 30 mg every 6 hours. Patient is asked to keep checking her heart rate while at home and to not take Cardizem if her heart rates are below 60 bpm. Discharge Attestations Time Spent in Discharge Care*: greater than 30 min Specific Discharge Activities: Specific discharge activities: educating patient, educating and/or supporting family/caregiver, discussing with pcp/other providers, documenting/other paperwork and evaluating patient/reviewing data Status at Discharge: Cognitive status at discharge: cognitively intact, Behavioral status at discharge: cooperative, Functional status at discharge: independent ambulation Overall status at discharge: patient is back to baseline Quality Metrics Clinical Quality Measures During this hospital stay, did patient experience: None Coding Level of Care Code Acute [employer]arian [employer] for [employer] Fwd Diagnoses Abdominal pain R10.9 Dysphagia R13.10 Chest pain I20.8 Chest pain type: chest pain due to myocardial ischemia Ischemic chest pain type: stable angina pectoris Acid reflux K21.9 Afib I48.91 Chronic systolic (congestive) heart failure I50.22 Essential hypertension I10 Mixed hyperlipidemia E78.2
[2019-09-10 14:01] LABS: H. Pylori IgG Antibody Negative (Negative)
--- NOTE | 2019-09-10 14:39 | PC.NURSE ---
Patient discharged home at this time. Discharge instructions given to patient and explained patient verbalized understanding as well as was able to teach back most of information. Patient instructed to call the hospital with any questions or concerns regarding discharge. IV discontinued cath intact min bleeding noted dressing applied. Patient assisted to private vehicle where family awaited via wheel chair by staff all patient belongings as well as discharge instructions in hand patient alert and oreinted and in stable condition.
--- NOTE | 2019-09-10 15:10 | PC.NURSE ---
pt called and asked if we called her Rx to [facility] When checked, her 1st preferred pharmacy is [facility] on the computer. Called [facility] upon pt's request and called her new prescriptions.
--- NOTE | 2019-09-12 10:59 | PC.SOCIAL ---
pharmacy called to confirm patient is to continue Amlodipine and new dose of Diltiazem. Provider did kirstie to continue the Amlodipine and we reviewed the new dose of Diltiazem.
--- NOTE | 2019-09-12 12:14 | PC.RESP ---
Pulmonary Rehab information sent to patient.
--- NOTE | 2019-09-12 16:10 | DCPLANNER ---
manager of software had message to schedule an out patient stress test for patient. manager of software faxed order to centralized scheduling, will call for appointment information.
--- NOTE | 2019-09-13 12:42 | DCPLANNER ---
school manager had message to schedule an outpatient stress test for patient. school manager got order signed and faxed to centralized scheduling. school manager will call for appointment information.
--- NOTE | 2019-09-15 08:22 | DCPLANNER ---
Patient had an appointment scheduled, centralized scheduling was unable to reach patient. Case manage called patient, she stated that she did not want the stress test at this time.
== END 2019-09-10 13:28 | disposition home or self-care (01) ==
LOC: ER 15:59 → CSU 17:32
PROVIDERS: Family Medicine; Admitting Provider Student in an Organized Health Care Education/Training Program; Family Provider Internal Medicine; PCP Family Medicine; Visit Provider Student in an Organized Health Care Education/Training Program
DX: R10.9 Unspecified abdominal pain (principal); R13.10 Dysphagia, unspecified; I20.8 Other forms of angina pectoris; K21.9 Gastro-esophageal reflux disease without esophagitis; I48.91 Unspecified atrial fibrillation; I11.0 Hypertensive heart disease with heart failure; I50.22 Chronic systolic (congestive) heart failure; E78.2 Mixed hyperlipidemia; Z79.01 Long term (current) use of anticoagulants; E03.9 Hypothyroidism, unspecified; J44.9 Chronic obstructive pulmonary disease, unspecified; Z87.891 Personal history of nicotine dependence
CPT/HCPCS: 12345; 36415; 71045; 71260; 74177; 80053; 80061; 80162; 81001; 83036; 83540; 83550; 83605; 83690; 83735; 83880; 84145; 84443; 84484; 85025; 85378; 86677; 87040; 93005; 94640; 94664; 96375; 99283; 99285; G0378; J2405; J7626; Q9967

== ENCOUNTER 2020-01-13 11:54 | Emergency (ER) | payer MEDICARE, MEDICAID, SELFPAY ==
[2020-01-13 12:04] VITALS: BP 95/61; PULSE 76; RESP 18; TEMP 36.6; O2SAT 98; BMI 28.5
[2020-01-13 12:39] VITALS: BP 123/59; PULSE 80; RESP 20; O2SAT 94
--- NOTE | 2020-01-13 12:40 | XRR_ITS ---
PROCEDURE INFORMATION: Exam: XR Chest, 1 View Exam date and time: 01/13/2020 1:12 PM Age: 79 years old Clinical indication: Other: Low o2 sats; Additional info: Weakness, low BP, low o2 sats TECHNIQUE: Imaging protocol: XR of the chest Views: 1 view. COMPARISON: CT chest abd pel w con* 09/09/2019 10:01 PM FINDINGS: Lungs: Unremarkable. No consolidation. Pleural space: Unremarkable. No pleural effusion. No pneumothorax. Heart/Mediastinum: Unremarkable. No cardiomegaly. Bones/joints: Unremarkable. XR/XR chest 1V portable [id number] IMPRESSION: No acute findings.
--- NOTE | 2020-01-13 12:41 | ECG_ITS ---
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 Measurements Intervals [place] Rate: 82 P: NM: -1 QRS: -15 QRSD: 95 T: 59 QT: 384 QTc: 450 Interpretive Statements ATRIAL FIBRILLATION SEPTAL MYOCARDIAL INFARCTION [40+ ms Q WAVE IN V1/V2], PROBABLY OLD Compared to ECG 09/09/2019 18:32:32 Myocardial infarct finding now present Left anterior fascicular block no longer present ST (T wave) deviation no longer present Electronically Signed On 01-13-2020 20:34:45 CDT by Vidal Christopher M.D. [id number]
[2020-01-13 13:00] VITALS: BP 117/65; PULSE 74; O2SAT 93
[2020-01-13 13:02] LABS: Basophils % 0.5 %; Eosinophils # 0.4 10^3/uL (0.0-0.8); Eosinophils % 6.7 %; Hematocrit 44.1 % (37.0-47.0); Hemoglobin 13.8 g/dL (11.5-15.3); Lymphocytes # 1.3 10^3/uL (0.8-4.8); Lymphocytes % 20.2 %; Mean Corpuscular HGB Conc 31.3 g/dL (30.0-36.0); Mean Corpuscular Hemoglobin 29.6 pg (28.0-34.0); Mean Corpuscular Volume 94.6 fL (81-99); Mean Platelet Volume 9.8 fL (7.4-10.4); Monocytes # 0.6 10^3/uL (0.2-0.9); Monocytes % 9.3 %; Neutrophils # 4.11 10^3/uL (1.8-7.7); Nucleated Red Blood Cells % 0 %; Platelet Count 225 10^3/cmm (130-400); Red Blood Count 4.66 10^6/uL (4.1-5.3); White Blood Count 6.5 10^3/uL (4.0-10.0)
[2020-01-13 13:18] LABS: Troponin(5th) Baseline 22 ng/L (0-10)
[2020-01-13 13:26] LABS: Alanine Aminotransferase 14 U/L (0-33); Albumin Level 4.3 g/dL (3.5-5.2); Alkaline Phosphatase 86 IU/L (35-105); Anion Gap 12.6 (5-19); Aspartate Amino Transferase 15 U/L (0-32); Blood Urea Nitrogen 11 mg/dL (8-23); Calcium 9.6 mg/dL (8.5-10.5); Carbon Dioxide 26 mmol/L (22-29); Chloride 104 mmol/L (98-107); Globulin 2.2 g/dL (1.3-4.6); Glucose 104 mg/dL (65-115); NT Pro B Type Natriuretic Pept 1063 pg/mL (0-450); Osmolality Calculated 286 mOsm/kg (285-295); Potassium 4.6 mmol/L (3.5-5.1); Sodium 138 mmol/L (136-145); Total Bilirubin 0.4 mg/dL (0.15-1.2); Total Protein 6.5 g/dL (6.6-8.7)
--- NOTE | 2020-01-13 13:38 | ED_ITS ---
HPI - General Adult General: Chief complaint: General Medical Stated complaint: LOW BP/ LOW O2 SATS/ NOT FEELING WELL Time Seen by Provider: 01/13/20 12:48 Source: patient Mode of arrival: EMS Limitations: no limitations History of Present Illness: HPI narrative: Patient states that when she woke up this morning she was feeling unwell. She felt weak all over. No focal weakness. She denies any chest pain. She has a history of COPD and has baseline shortness of breath which there has been no change. She denies a fever. She had diarrhea yesterday but that has resolved. She denies any urinary symptoms. Associated symptoms: Reports malaise; Deny dyspnea, headache(s), nausea, rash, palpitations or vomiting Review of Systems General: Reports: 10 or more systems reviewed and unremarkable except in HPI and below Const: Reports: fatigue and malaise; Denies: fever(s), chills or body aches Eyes: Denies: change in vision or blurry vision ENMT: Denies: throat pain, enlarged tonsils, odynophagia, hoarseness, mouth pain or swelling of lips/tongue Card: Denies: palpitations, irregular heart rhythm, edema or swelling of feet/ankles Resp: Denies: dyspnea, productive cough or non-productive cough GI: Denies: abdominal pain, nausea or vomiting : Denies: flank pain, difficulty voiding, dysuria, urinary frequency, urinary urgency or urinary hesitancy Musc: Denies: neck pain, back pain or extremity swelling Skin/Breast: Denies: rash, pruritus or erythema Neuro: Denies: headache(s), numbness in extremities or weakness in extremities Endo: Denies: polyuria, polydipsia or tired all the time PFSH ED PFSH: Medical History Acid reflux Afib Anal fissure Chronic back pain Chronic systolic (congestive) heart failure COPD (chronic obstructive pulmonary disease) Essential hypertension Flu-like symptoms Lymphedema of both lower extremities Mixed hyperlipidemia Surgical History History of hysterectomy Social History Smoking and tobacco status: former smoker Alcohol intake: never Physical Exam Const: COMMON NORMALS: no acute distress, average body habitus, patient oriented x3, no limitations, healthy appearing, alert and well nourished HENMT: COMMON NORMALS: normocephalic, atraumatic and moist oral mucous membranes HEAD & SCALP: normocephalic and atraumatic Eye: COMMON NORMALS: Equal, round and reactive pupils present, EOMs intact bilaterally, conjunctivae normal and no scleral icterus CONJUNCTIVA: Yes conjunctivae normal PUPIL: Yes Equal, round and reactive pupils present Neck/C-Spine: COMMON NORMALS: full ROM, supple, no meningeal signs, no JVD and No carotid bruits Chest: COMMONS NORMALS: normal inspection of the chest and normal palpation of entire chest wall Resp: COMMON NORMALS: normal respiratory effort, No retractions, No use of accessory muscles, clear to auscultation bilaterally and percussion normal AUSCULTATION: clear to auscultation bilaterally PERCUSSION: percussion normal Cardio: COMMON NORMALS: no JVD, regular rate, regular rhythm, S1 normal heart sound present, S2 normal heart sound present, No gallops present (Cardio), No clicks present (Cardio), No murmurs present (Cardio), No rub (Cardio) and Peripheral pulses 2+ throughout RATE: regular rate RHYTHM: regular rhythm HEART SOUNDS: S1 normal heart sound present and S2 normal heart sound present PERIPHERAL PULSES: Peripheral pulses 2+ throughout GI: COMMON NORMALS: Normal to inspection, nondistended, normoactive bowel sounds present, Soft to palpation, non-tender, No hepatosplenomegaly present, no masses and no bruits PALPATION: Yes Soft to palpation and Yes No hepatosplenomegaly present Extremity: COMMON NORMALS: normal to inspection, full ROM, capillary refill normal, no calf tenderness and no pedal edema Neuro: COMMON NORMALS: patient oriented x3 SENSORIUM/ORIENTATION: Yes alert MENINGEAL SIGNS: Yes no meningeal signs Skin: COMMON NORMALS: no rashes or lesions noted, no wounds, turgor normal, no jaundice, no petechiae and no mottling GENERAL SKIN EXAM: no rashes or lesions noted and turgor normal Course Reevaluation(s): Reevaluation #1: Discussed her lab and imaging findings with her. Labs consistent with a urinary tract infection. High-sensitivity troponin delta is flat at 2 hours. Symptoms are likely secondary to urinary tract infection and she will be treated with oral antibiotics. She has already received a dose of intravenous ceftriaxone in the emergency department. The patient voiced understanding and is in agreement with the plan. Time: 18:08 Vital Signs: Vital signs: Vital Signs Temperature 97.9 F 01/13/20 12:04 Pulse Rate 86 01/13/20 18:46 Respiratory Rate 16 01/13/20 18:46 Blood Pressure 147/70 01/13/20 18:46 Pulse Oximetry 93 01/13/20 18:46 MDM - General Adult MDM Narrative: Medical decision making narrative: 79-year-old female patient who presented to the emergency department with complaints of generalized weakness. Evaluation in the emergency department is consistent with a urinary tract infection and she was given a dose of intravenous ceftriaxone in emergency department and discharged home with a prescription for oral Augmentin. Medical Records: Attestation: I reviewed the patient's medical records. Lab Data: Attestation: I reviewed the patient's lab results. Labs: Lab Results 01/13/20 01/13/20 01/13/20 Range/Units 12:46 12:46 12:46 WBC 6.5 (4.0-10.0) 10^3/ uL RBC 4.66 (4.1-5.3) 10^6/u L Hgb 13.8 (11.5-15.3) g/dL Hct 44.1 (37.0-47.0) % MCV 94.6 (81-99) fL MCH 29.6 (28.0-34.0) pg MCHC 31.3 (30.0-36.0) g/dL RDW 13.0 (12.1-15.1) % Plt Count 225 (130-400) 10^3/c mm MPV 9.8 (7.4-10.4) fL Neut % (Auto) 63.0 % Lymph % (Auto) 20.2 % [place] % (Auto) 9.3 % Eos % (Auto) 6.7 % Baso % (Auto) 0.5 % Neut # (Auto) 4.11 (1.8-7.7) 10^3/u L Lymph # (Auto) 1.3 (0.8-4.8) 10^3/u L [place] # (Auto) 0.6 (0.2-0.9) 10^3/u L Eos # (Auto) 0.4 (0.0-0.8) 10^3/u L Baso # (Auto) 0.0 (0.0-0.1) 10^3/u L Nucleated RBC % (a uto) 0 % Nucleated RBCs # 0.0 /100WBC Sodium 138 (136-145) mmol/L Potassium 4.6 (3.5-5.1) mmol/L Chloride 104 (98-107) mmol/L Carbon Dioxide 26 (22-29) mmol/L Anion Gap 12.6 (5-19) BUN 11 (8-23) mg/dL Creatinine 1.1 H (0.5-0.9) mg/dL GFR Calculation Not Reportable Glucose 104 (65-115) mg/dL Calculated Osmolal ity 286 (285-295) mOsm/k g Calcium 9.6 (8.5-10.5) mg/dL Total Bilirubin 0.4 (0.15-1.2) mg/dL AST 15 (0-32) U/L ALT 14 (0-33) U/L Alkaline Phosphata se 86 (35-105) IU/L Troponin T Baselin e 22 H (0-10) ng/L Troponin T 120 Min dorita (0-10) ng/L Delta Troponin T (0-10) ABS# NT-Pro-B Natriuret Pep 1063 H (0-450) pg/mL Total Protein 6.5 L (6.6-8.7) g/dL Albumin 4.3 (3.5-5.2) g/dL Globulin 2.2 (1.3-4.6) g/dL Urine Color (Yellow) Urine Appearance (CLEAR) Urine pH (5-7) Ur Specific Gravit y (1.005-1.030) Urine Protein (Negative) Urine Glucose (UA) (Normal) Urine Ketones (Negative) Urine Blood (Negative) Urine Nitrate (Negative) Urine Bilirubin (Negative) Urine Urobilinogen (Negative) mg/dL Ur Leukocyte Vale ase (Negative) Urine RBC (0-2) /hpf Urine WBC (0-5) /hpf Ur Squamous Epith Cells (0-5) /hpf Amorphous Sediment Urine Bacteria (NONE) /hpf Hyaline Casts /lpf Urine Mucus /hpf 01/13/20 01/13/20 Range/Units 13:14 14:52 WBC (4.0-10.0) 10^3/ uL RBC (4.1-5.3) 10^6/u L Hgb (11.5-15.3) g/dL Hct (37.0-47.0) % MCV (81-99) fL MCH (28.0-34.0) pg MCHC (30.0-36.0) g/dL RDW (12.1-15.1) % Plt Count (130-400) 10^3/c mm MPV (7.4-10.4) fL Neut % (Auto) % Lymph % (Auto) % [place] % (Auto) % Eos % (Auto) % Baso % (Auto) % Neut # (Auto) (1.8-7.7) 10^3/u L Lymph # (Auto) (0.8-4.8) 10^3/u L [place] # (Auto) (0.2-0.9) 10^3/u L Eos # (Auto) (0.0-0.8) 10^3/u L Baso # (Auto) (0.0-0.1) 10^3/u L Nucleated RBC % (a uto) % Nucleated RBCs # /100WBC Sodium (136-145) mmol/L Potassium (3.5-5.1) mmol/L Chloride (98-107) mmol/L Carbon Dioxide (22-29) mmol/L Anion Gap (5-19) BUN (8-23) mg/dL Creatinine (0.5-0.9) mg/dL GFR Calculation Glucose (65-115) mg/dL Calculated Osmolal ity (285-295) mOsm/k g Calcium (8.5-10.5) mg/dL Total Bilirubin (0.15-1.2) mg/dL AST (0-32) U/L ALT (0-33) U/L Alkaline Phosphata se (35-105) IU/L Troponin T Baselin e (0-10) ng/L Troponin T 120 Min dorita 19.09 H (0-10) ng/L Delta Troponin T -2.91 L (0-10) ABS# NT-Pro-B Natriuret Pep (0-450) pg/mL Total Protein (6.6-8.7) g/dL Albumin (3.5-5.2) g/dL Globulin (1.3-4.6) g/dL Urine Color Yellow (Yellow) Urine Appearance Clear (CLEAR) Urine pH 7 (5-7) Ur Specific Gravit y 1.005 (1.005-1.030) Urine Protein Neg (Negative) Urine Glucose (UA) Norm (Normal) Urine Ketones Negative (Negative) Urine Blood Neg (Negative) Urine Nitrate Negative (Negative) Urine Bilirubin Neg (Negative) Urine Urobilinogen 1 H (Negative) mg/dL Ur Leukocyte Vale ase 1+ H (Negative) Urine RBC 0-4 H (0-2) /hpf Urine WBC 5-10 H (0-5) /hpf Ur Squamous Epith Cells 0-4 H (0-5) /hpf Amorphous Sediment Not Reportable Urine Bacteria Trace (NONE) /hpf Hyaline Casts 10-15 H /lpf Urine Mucus Trace /hpf Imaging Data^: CXR: Attestation: I personally reviewed and interpreted this imaging study as rachel kennedy: Radiologist's impression: [place] [address] XRay Report Signed Patient: Arielle Vences #: [id number] : 3Acct#:[id number] Age/Sex: 79 / FADM Date: 01/13/20 [facility] Attending Dr: Ordering Provider/Ordering MD: Arvind Encarnacion Date of Service: 01/13/20 Procedure(s): XR chest 1V portable [id number] Accession Number(s): [id number] Report Number: [id number] PROCEDURE INFORMATION: Exam: XR Chest, 1 View Exam date and time: 01/13/2020 1:12 PM Age: 79 years old Clinical indication: Other: Low o2 sats; Additional info: Weakness, low BP, low o2 sats TECHNIQUE: Imaging protocol: XR of the chest Views: 1 view. COMPARISON: CT chest abd pel w con* 09/09/2019 10:01 PM FINDINGS: Lungs: Unremarkable. No consolidation. Pleural space: Unremarkable. No pleural effusion. No pneumothorax. Heart/Mediastinum: Unremarkable. No cardiomegaly. Bones/joints: Unremarkable. XR/XR chest 1V portable [id number] IMPRESSION: No acute findings. Dictated By:Juan Pineda Signed By:Hernando Pineda Date/Time:01/13/201333 DD/ EKG Data^: EKG 1: Attestation: I personally reviewed and interpreted this EKG as follows: EKG interpretation date: 01/13/20 EKG interpretation time: 12:56 Prior EKG tracings: not available for review Interpretation: Atrial fibrillation. Heart rate [address] changes. Computer generated interpretation: Chest X-Ray 01/13/20 12:40 IMPRESSION: No acute findings. EKG 2: Attestation: I personally reviewed and interpreted this EKG as follows: EKG interpretation date: 01/13/20 EKG interpretation time: 14:47 Prior EKG tracings: available for review Interpretation: Atrial fibrillation. Heart rate [address] changes. Computer generated interpretation: Chest X-Ray 01/13/20 12:40 IMPRESSION: No acute findings. EKG 3: Attestation: I personally reviewed and interpreted this EKG as follows: EKG interpretation date: 01/13/20 EKG interpretation time: 18:41 Prior EKG tracings: available for review Interpretation: Atrial fibrillation. Heart rate [address] changes. Unchanged from earlier. Computer generated interpretation: Chest X-Ray 01/13/20 12:40 IMPRESSION: No acute findings. Discharge Plan Discharge Patient Disposition: Home Clinical Impression: Urinary tract infection Qualifiers: Urinary tract infection type: acute cystitis Hematuria presence: without hematuria Qualified Code(s): N30.00 - Acute cystitis without hematuria Condition: Stable Prescriptions: New Augmentin 500-125 mg tablet 1 tab PO BID Qty: 14 RF: 0 Continued lisinopril 10 mg tablet 10 mg PO DAILY RF: 0 levothyroxine 88 mcg tablet 88 mcg PO DAILY RF: 0 digoxin 125 mcg (0.125 mg) tablet 125 mcg PO DAILY RF: 0 Eliquis 5 mg tablet 5 mg PO BID RF: 0 furosemide 40 mg tablet 20 mg PO QAM RF: 0 gabapentin 600 mg tablet 600 mg PO TID RF: 0 loratadine 10 mg tablet 10 mg PO DAILY RF: 0 Myrbetriq 50 mg tablet extended release 24 hr 50 mg PO Q24H RF: 0 calcium carbonate [Oyster Shell Calcium] 500 mg calcium (1,250 mg) tablet 500 mg PO BID RF: 0 tizanidine 2 mg capsule 4 mg PO BID PRN (Reason: Spasms) RF: 0 trazodone 50 mg Tablet 25 - 50 mg PO BEDTIME PRN (Reason: Sleep) RF: 0 alendronate 70 mg tablet 70 mg PO Q7D RF: 0 Thera-Tabs Tablet 1 tab PO BID RF: 0 hydrocodone-acetaminophen [[place]] 10-325 mg Tablet 1 tab PO TID PRN (Reason: Pain) RF: 0 amlodipine [Norvasc] 10 mg Tablet 10 mg PO DAILY RF: 0 montelukast [Singulair] 10 mg Tablet 10 mg PO DAILY RF: 0 pravastatin 20 mg Tablet 20 mg PO DAILY RF: 0 hydroxyzine pamoate 25 mg Capsule 25 mg PO BEDTIME PRN (Reason: unknown) RF: 0 duloxetine [Cymbalta] 60 mg Capsule,Delayed Release(Dr/Ec) 60 mg PO DAILY RF: 0 cholecalciferol (vitamin D3) 1,250 mcg (50,000 unit) capsule 50,000 unit PO Q7D RF: 0 Anoro Ellipta 62.5-25 mcg/actuation Blister With Device 1 inh INHALATION DAILY RF: 0 meloxicam 7.5 mg tablet 7.5 mg PO DAILY RF: 0 Ventolin HFA 90 mcg/actuation Hfa Aerosol Inhaler 2 puff INHALATION Q4H PRN (Reason: Shortness Of Breath) RF: 0 Flonase Allergy Relief 50 mcg/actuation [place],Suspension 1 - 2 spray INTRANASAL DAILY RF: 0 nitroglycerin 0.4 mg tablet, sublingual 0.4 mg SUBLINGUAL Q5M PRN (Reason: chest pain) Qty: 30 RF: 0 diltiazem HCl 60 mg tablet 30 mg PO Q8H Qty: 30 RF: 0 Discharge Orders: Discharge Order (Routine); Ordered 01/13/20 Ordered By: Sarah Cheney Referrals: Alison Ramos MD [Family Provider] - Radha Martinez MD [Primary Care Provider] - 1-3 days Discharge Diet: Usual diet Discharge Activity: Increase activity as tolerated Patient Instructions: Urinary Tract Infection in Women (ED) Activity Restrictions/Additional Instructions: Return for any new or worsening symptoms. Follow-up with your primary care provider within 3 days. Take the antibiotic as prescribed. Drink plenty of fluids to keep well-hydrated. 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
[2020-01-13 13:42] LABS: Add Urine Microscopic? YES; Bilirubin Urine Neg (Negative); Blood Urine Neg (Negative); Glucose Urine UA Norm (Normal); Ketones Urine Negative (Negative); Leukocyte Esterase Urine 1+ (Negative); Nitrate Urine Negative (Negative); Protein Urine Neg (Negative); Specific Gravity, Urine 1.005 (1.005-1.030); Urine Appearance Clear (CLEAR); Urine Color Yellow (Yellow); Urobilinogen Urine 1 mg/dL (Negative); pH Urine 7 (5-7)
[2020-01-13 13:43] LABS: Bacteria Urine TRACE /hpf; Mucus Urine TRACE /hpf; RBC Urine 0-4 /hpf (0-2); Squamous Epithelial Cell Urine 0-4 /hpf (0-5)
[2020-01-13 13:44] LABS: Add Urine Culture? No
[2020-01-13] MEDS: cefTRIAXone 1,000 MG in sodium chloride 0.9% (plus) 50 ML 100 MG IV (14:29)
--- NOTE | 2020-01-13 14:41 | ECG_ITS ---
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 Measurements Intervals [place] Rate: 82 P: MO: -1 QRS: -66 QRSD: 97 T: 4 QT: 391 QTc: 457 Interpretive Statements ATRIAL FIBRILLATION LOW QRS VOLTAGE IN EXTREMITY LEADS [QRS DEFLECTION < 0.5 mV IN LIMB LEADS] SEPTAL MYOCARDIAL INFARCTION , PROBABLY OLD [40+ ms Q WAVE IN V1/V2] INFERIOR MYOCARDIAL INFARCTION , PROBABLY OLD [40+ ms Q WAVE AND/OR ST/T ABNORMALITY IN II/aVF] Compared to ECG 01/13/2020 12:56:29 Low QRS voltage now present Myocardial infarct finding still present Electronically Signed On 01-13-2020 20:39:22 CDT by Vidal Christopher M.D. [id number] f
[2020-01-13 15:00] VITALS: BP 132/80; PULSE 98; O2SAT 92
[2020-01-13 15:18] LABS: Troponin 5 2HR 19.09 ng/L (0-10)
[2020-01-13 15:45] LABS: Troponin 5 2HR Delta -2.91 ABS# (0-10)
[2020-01-13 17:00] VITALS: BP 142/91; PULSE 90; O2SAT 92
--- NOTE | 2020-01-13 18:41 | ECG_ITS ---
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 Measurements Intervals [place] Rate: 84 P: GA: -1 QRS: -61 QRSD: 97 T: 70 QT: 376 QTc: 446 Interpretive Statements ATRIAL FIBRILLATION LEFT AXIS DEVIATION [QRS AXIS < -30] SEPTAL MYOCARDIAL INFARCTION , PROBABLY OLD [40+ ms Q WAVE IN V1/V2] Compared to ECG 01/13/2020 14:47:52 Left-axis deviation now present Myocardial infarct finding still present Electronically Signed On 01-14-2020 22:15:28 CDT by Cristal Tran M.D. [id number] f
[2020-01-13 18:46] VITALS: BP 147/70; PULSE 86; RESP 16; O2SAT 93
== END 2020-01-13 18:48 | disposition home or self-care (01) ==
PROVIDERS: Physician Assistant; Emergency Provider Family Medicine; Family Provider Internal Medicine; PCP Family Medicine
DX: N30.00 Acute cystitis without hematuria (principal); Z79.01 Long term (current) use of anticoagulants; I48.91 Unspecified atrial fibrillation; J44.9 Chronic obstructive pulmonary disease, unspecified; I10 Essential (primary) hypertension; E78.2 Mixed hyperlipidemia; Z87.891 Personal history of nicotine dependence
CPT/HCPCS: 12345; 36415; 71045; 80053; 81001; 83880; 84484; 85025; 93005; 96365; 99283; 99284; J0696

== ENCOUNTER 2020-02-18 07:51 | Emergency (ER) | payer MEDICARE, MEDICAID, SELFPAY ==
[2020-02-18] VITALS (10 sets, daily range): BP systolic 130–187; BP diastolic 63–118; PULSE 62–104; RESP 15–26; O2SAT 93–95; BMI 25.8
--- NOTE | 2020-02-18 08:16 | XRR_ITS ---
PROCEDURE INFORMATION: Exam: XR Chest, 1 View Exam date and time: 02/18/2020 8:26 AM Age: 79 years old Clinical indication: Other: High blood pressure TECHNIQUE: Imaging protocol: XR of the chest Views: 1 view. COMPARISON: CR XR chest 1V portable [id number] 01/13/2020 12:44 PM FINDINGS: Lungs: Unremarkable. No consolidation. Pleural space: Unremarkable. No pleural effusion. No pneumothorax. Heart/Mediastinum: Unremarkable. No cardiomegaly. Bones/joints: Unremarkable. XR/XR chest 1V portable [id number] IMPRESSION: No acute findings.
--- NOTE | 2020-02-18 08:17 | ECG_ITS ---
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1940 Requested By: Jemma Keen Order Number: [id number] Reba MD: NANCY DAVIS Measurements Intervals [place] Rate: 90 P: [place]: QRS: -53 QRSD: 98 T: 60 QT: 347 QTc: 425 Interpretive Statements ATRIAL FIBRILLATION LEFT ANTERIOR FASCICULAR BLOCK [QRS AXIS <= -45, QR IN I, RS IN II] POSSIBLE ANTERIOR MYOCARDIAL INFARCTION , PROBABLY OLD [30 ms Q WAVE IN V3/V4, OR R < 0.2 mV IN V4] Compared to ECG 01/13/2020 18:41:29 Left anterior fascicular block now present Left-axis deviation no longer present Myocardial infarct finding still present Electronically Signed On 02-18-2020 18:02:50 HEDIS ABSTRACTOR by NANCY DAVIS [id number]
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
[2020-02-18 08:40] LABS: Add Urine Microscopic? YES; Bilirubin Urine Neg (Negative); Blood Urine Neg (Negative); Glucose Urine UA Norm (Normal); Ketones Urine Negative (Negative); Leukocyte Esterase Urine 2+ (Negative); Nitrate Urine Negative (Negative); Protein Urine Neg (Negative); Specific Gravity, Urine 1.015 (1.005-1.030); Urine Appearance Hazy (CLEAR); Urine Color Yellow (Yellow); Urobilinogen Urine Norm (Negative); pH Urine 5 (5-7)
[2020-02-18 08:46] LABS: Bacteria Urine 2+ /hpf; Mucus Urine 2+ /hpf; Squamous Epithelial Cell Urine 25-40 /hpf (0-5)
[2020-02-18 08:49] LABS: WBC Urine 25-40 /hpf (0-5)
[2020-02-18 08:50] LABS: Add Urine Culture? No
[2020-02-18 09:00] LABS: Basophils % 0.5 %; Eosinophils # 0.5 10^3/uL (0.0-0.8); Eosinophils % 6.3 %; Hemoglobin 15.8 g/dL (11.5-15.3); Lymphocytes # 1.1 10^3/uL (0.8-4.8); Lymphocytes % 14.9 %; Mean Corpuscular HGB Conc 32.2 g/dL (30.0-36.0); Mean Corpuscular Hemoglobin 29.5 pg (28.0-34.0); Mean Corpuscular Volume 91.4 fL (81-99); Monocytes # 0.6 10^3/uL (0.2-0.9); Monocytes % 8.6 %; Neutrophils # 5.06 10^3/uL (1.8-7.7); Neutrophils % 69.4 %; Nucleated Red Blood Cells % 0 %; Platelet Count 248 10^3/cmm (130-400); Red Blood Count 5.36 10^6/uL (4.1-5.3); White Blood Count 7.3 10^3/uL (4.0-10.0)
[2020-02-18 09:21] LABS: INR 0.97 (0.8-1.2)
[2020-02-18 09:31] LABS: Digoxin 0.6 ng/mL (0.6-1.2)
[2020-02-18 09:33] LABS: Troponin(5th) Baseline 19 ng/L (0-10)
[2020-02-18 09:43] LABS: Alanine Aminotransferase 12 U/L (0-33); Albumin Level 4.7 g/dL (3.5-5.2); Alkaline Phosphatase 104 IU/L (35-105); Anion Gap 14.5 (5-19); Aspartate Amino Transferase 16 U/L (0-32); Blood Urea Nitrogen 12 mg/dL (8-23); Calcium 9.8 mg/dL (8.5-10.5); Carbon Dioxide 26 mmol/L (22-29); Chloride 106 mmol/L (98-107); Free T4 Free Thyroxine 1.11 ng/dL (0.82-1.77); Globulin 2.1 g/dL (1.3-4.6); Glucose 130 mg/dL (65-115); NT Pro B Type Natriuretic Pept 1061 pg/mL (0-450); Osmolality Calculated 296 mOsm/kg (285-295); Potassium 4.5 mmol/L (3.5-5.1); Sodium 142 mmol/L (136-145); Thyroid Stimulating Hormone 3.64 uIU/mL (0.27-4.20); Total Bilirubin 0.5 mg/dL (0.15-1.2); Total Protein 6.8 g/dL (6.6-8.7)
--- NOTE | 2020-02-18 10:17 | ECG_ITS ---
[facility] Test Date: 2020-02-18 Pat Name: Arielle Vences Department: Room: Gender: Female Bean Sorter: : 1940 Requested By: Jemma Keen Order Number: [id number] Reba MD: NANCY DAVIS Measurements Intervals [place] Rate: 97 P: [place]: QRS: -56 QRSD: 105 T: 71 QT: 362 QTc: 460 Interpretive Statements ATRIAL FIBRILLATION WITH ABERRANT CONDUCTION OR VENTRICULAR PREMATURE COMPLEXES PATTERN CONSISTENT WITH PULMONARY DISEASE INCOMPLETE RIGHT BUNDLE BRANCH BLOCK [90+ ms QRS DURATION, TERMINAL R IN V1/V2, 40+ ms S IN I/aVL/V4/V5/V6] LEFT ANTERIOR FASCICULAR BLOCK [QRS AXIS <= -45, QR IN I, RS IN II] SEPTAL MYOCARDIAL INFARCTION , PROBABLY OLD [40+ ms Q WAVE IN V1/V2] Compared to ECG 02/18/2020 08:00:10 Ventricular premature complex(es) now present Aberrant conduction of supraventricular beat(s) now present Incomplete right bundle-branch block now present Myocardial infarct finding still present Electronically Signed On 02-18-2020 18:14:51 BOTTLE HOUSE PUMPER by NANCY DAVIS [email or web address]
--- NOTE | 2020-02-18 10:47 | PC.NURSE ---
PT EATING SANDWICH WITH DOCTOR'S OK.
[2020-02-18 11:11] LABS: Troponin 5 2HR 16.78 ng/L (0-10)
[2020-02-18 11:19] LABS: Troponin 5 2HR Delta -2.22 ABS# (0-10)
== END 2020-02-18 13:04 | disposition home or self-care (01) ==
PROVIDERS: Emergency Provider Emergency Medicine; PCP Family Medicine
DX: I11.0 Hypertensive heart disease with heart failure (principal); I50.22 Chronic systolic (congestive) heart failure; I48.91 Unspecified atrial fibrillation; Z79.01 Long term (current) use of anticoagulants; J44.9 Chronic obstructive pulmonary disease, unspecified; E78.2 Mixed hyperlipidemia; Z87.891 Personal history of nicotine dependence
CPT/HCPCS: 12345; 36415; 71045; 80053; 80162; 81001; 83880; 84439; 84443; 84484; 85025; 85610; 93005; 96374; 96375; 99282; 99284; J3490

== ENCOUNTER 2020-04-19 10:15 | Emergency (ER) | payer MEDICARE, MEDICAID, SELFPAY ==
--- NOTE | 2020-04-19 10:18 | ECG_ITS ---
[facility] Test Date: 2020-04-19 Pat Name: Arielle Vences Department: Room: Gender: Female Results Engineer: : 1940 Requested By: Trell Keen Order Number: [id number] Reba MD: Vidal Christopher M.D. Measurements Intervals [place] Rate: 82 P: CT: QRS: -25 QRSD: 98 T: 31 QT: 356 QTc: 416 Interpretive Statements ATRIAL FIBRILLATION SEPTAL MYOCARDIAL INFARCTION , PROBABLY OLD [40+ ms Q WAVE IN V1/V2] Compared to ECG 02/18/2020 10:04:59 Ventricular premature complex(es) no longer present Aberrant conduction of supraventricular beat(s) no longer present Incomplete right bundle-branch block no longer present Left anterior fascicular block no longer present Myocardial infarct finding still present Electronically Signed On 04-19-2020 18:04:05 MANUFACTURING MANAGER by Vidal Christopher M.D. [id number]
[2020-04-19 10:21] VITALS: BP 169/91; PULSE 110; RESP 18; TEMP 36.5; O2SAT 97
--- NOTE | 2020-04-19 10:21 | W.ED.NAVMDI ---
HPI - Nausea/Vomiting/Diarrhea General: Chief complaint: Abdominal Pain Stated complaint: N/V ABD pain Time Seen by Provider: 04/19/20 10:16 History of Present Illness: HPI Narrative: 79-year-old female presents emergency room with complaint of nausea and abdominal pain. She presents by privately owned vehicle. She has a history of A. fib with RVR and elevated blood pressure, she is on oral anticoagulation Eliquis. States pain began yesterday about 3 to 4 days ago start some oral antibiotics for an ulcer she has on her medial aspect of her right leg proximal to the medial malleolus has not been red or inflamed or draining's also putting a topical antibiotic on it. She denies any fever sweats or chills she is not had any vomiting but has been very nauseous. Denies dysuria urgency or frequency has had normal bowel movements no diarrhea denies any medic easy melena hematemesis coffee-ground emesis no chest pain no recent flulike symptoms. MD elicited complaint: nausea and abdominal pain Onset (ago): day(s) Associated nausea: Yes Associated abdominal pain: Yes Location of pain: Periumbilical Pain consistency: constant Quality: cramping and aching Exacerbating factors: none Relieving factors: none Context: recent antibiotic use Associated symtoms: Reports fatigue, anorexia, malaise, nausea and weakness; Denies anxiety, bloating, change in vision, chest pain, cough, diaphoresis, decreased urine output, dizziness, dysuria, epistaxis, fecal incontinence, fevers/chills, headache(s), myalgias, numbness, palpitations, rash, short of breath, syncope, tenesmus or tinnitus Review of Systems Const: Reports: fatigue and malaise; Denies: diaphoresis Eyes: Denies: change in vision ENMT: Denies: tinnitus or epistaxis Card: Denies: chest pain, palpitations or syncope Resp: Denies: dyspnea, productive cough or non-productive cough GI: Reports: nausea; Denies: bloating or fecal incontinence : Denies: dysuria Skin/Breast: Denies: rash or pruritus Neuro: Denies: headache(s) or dizziness Psych: Denies: anxiety PFSH ED PFSH: Medical History (Updated 04/19/20 @ 11:37 by Trell Avery DO) Acid reflux Afib Anal fissure Chronic back pain Chronic systolic (congestive) heart failure COPD (chronic obstructive pulmonary disease) Essential hypertension Flu-like symptoms Lymphedema of both lower extremities Mixed hyperlipidemia Surgical History History of hysterectomy Social History Smoking and tobacco status: former smoker Second hand smoke exposure: No Smoking risk assessment/counseling performed?: No Alcohol intake: never Desire information about alcohol rehabilitation?: No Counseling given: No Desire information about substance/drug rehabilitation?: No Counseling given: No Adopted: No Caregiver/support person: No Lives independently: Yes Household members: spouse Housing: House Marital status: service: No Current occupational status: retired History of recent travel: No Current gender identity: Female Physical Exam Const: COMMON NORMALS: no acute distress GENERAL APPEARANCE: cooperative and comfortable ORIENTATION/CONSCIOUSNESS: Yes awake, Yes oriented to person, Yes oriented to place and Yes oriented to time HENMT: COMMON NORMALS: normocephalic, atraumatic and hearing grossly normal bilaterally HEAD & SCALP: normocephalic and atraumatic Eye: COMMON NORMALS: Equal, round and reactive pupils present, EOMs intact bilaterally, conjunctivae normal and no scleral icterus CONJUNCTIVA: Yes conjunctivae normal PUPIL: Yes Equal, round and reactive pupils present Neck/C-Spine: COMMON NORMALS: full ROM, no lymphadenopathy, supple and no JVD Lymph: LYMPHATIC: no lymphadenopathy noted and no lymphedema noted Resp: COMMON NORMALS: normal respiratory effort, No retractions, No use of accessory muscles and clear to auscultation bilaterally AUSCULTATION: clear to auscultation bilaterally Cardio: COMMON NORMALS: no JVD, regular rate, regular rhythm and No murmurs present (Cardio) RATE: regular rate RHYTHM: regular rhythm GI: COMMON NORMALS: Soft to palpation and No hepatosplenomegaly present AUSCULTATION: Yes normoactive bowel sounds PALPATION: Yes Soft to palpation, No Tenderness to palpation present (GI), No Guarding due to palpation present (GI) and Yes No hepatosplenomegaly present Extremity: COMMON NORMALS: normal to inspection, capillary refill normal, no clubbing, cyanosis or edema, no calf tenderness and no pedal edema Neuro: SENSORIUM/ORIENTATION: Yes oriented to person, Yes oriented to place and Yes oriented to time Skin: COMMON NORMALS: no rashes or lesions noted GENERAL SKIN EXAM: no rashes or lesions noted Course Vital Signs: Vital signs: Vital Signs Temperature 97.7 F 04/19/20 10:21 Pulse Rate 67 04/19/20 11:55 Respiratory Rate 18 04/19/20 11:55 Blood Pressure 173/99 04/19/20 11:55 Pulse Oximetry 90 04/19/20 11:55 MDM - Nausea/Vomiting/Diarrhea MDM Narrative: Medical decision making narrative: Reviewed labs with the patient. She is feeling much better after the fluids and antiemetics. We will have her hold her oral antibiotic get her set up for wound care clinic. Continue with the topical antibiotic. Discharged home with Zofran if worsens or change return Lab Data: Labs: Lab Results 04/19/20 04/19/20 04/19/20 Range/Units 11:00 11:00 11:00 WBC 7.7 (4.0-10.0) 10^3/ uL RBC 4.59 (4.1-5.3) 10^6/u L Hgb 13.8 (11.5-15.3) g/dL Hct 43.0 (37.0-47.0) % MCV 93.7 (81-99) fL MCH 30.1 (28.0-34.0) pg MCHC 32.1 (30.0-36.0) g/dL RDW 13.2 (12.1-15.1) % Plt Count 220 (130-400) 10^3/c mm MPV 9.7 (7.4-10.4) fL Neut % (Auto) 74.9 % Lymph % (Auto) 12.4 % Wood[place] % (Auto) 8.4 % Eos % (Auto) 3.6 % Baso % (Auto) 0.4 % Neut # (Auto) 5.79 (1.8-7.7) 10^3/u L Lymph # (Auto) 1.0 (0.8-4.8) 10^3/u L [place] # (Auto) 0.7 (0.2-0.9) 10^3/u L Eos # (Auto) 0.3 (0.0-0.8) 10^3/u L Baso # (Auto) 0.0 (0.0-0.1) 10^3/u L Nucleated RBC % (a uto) 0 % Nucleated RBCs # 0.0 /100WBC Sodium 140 (136-145) mmol/L Potassium 4.1 (3.5-5.1) mmol/L Chloride 104 (98-107) mmol/L Carbon Dioxide 28 (22-29) mmol/L Anion Gap 12.1 (5-19) BUN 10 (8-23) mg/dL Creatinine 0.7 (0.5-0.9) mg/dL GFR Calculation Not Reportable Glucose 111 (65-115) mg/dL Calculated Osmolal ity 290 (285-295) mOsm/k g Calcium 9.4 (8.5-10.5) mg/dL Total Bilirubin 0.5 (0.15-1.2) mg/dL AST 16 (0-32) U/L ALT 12 (0-33) U/L Alkaline Phosphata se 74 (35-105) IU/L Total Protein 6.6 (6.6-8.7) g/dL Albumin 4.3 (3.5-5.2) g/dL Globulin 2.3 (1.3-4.6) g/dL Urine Color Yellow (Yellow) Urine Appearance Clear (CLEAR) Urine pH 7 (5-7) Ur Specific Gravit y 1.010 (1.005-1.030) Urine Protein Neg (Negative) Urine Glucose (UA) Norm (Normal) Urine Ketones Negative (Negative) Urine Blood Neg (Negative) Urine Nitrate Negative (Negative) Urine Bilirubin Neg (Negative) Urine Urobilinogen Norm (Negative) mg/dL Ur Leukocyte [place] Negative (Negative) Digoxin (0.6-1.2) ng/mL 04/19/20 Range/Units 12:18 WBC (4.0-10.0) 10^3/ uL RBC (4.1-5.3) 10^6/u L Hgb (11.5-15.3) g/dL Hct (37.0-47.0) % MCV (81-99) fL MCH (28.0-34.0) pg MCHC (30.0-36.0) g/dL RDW (12.1-15.1) % Plt Count (130-400) 10^3/c mm MPV (7.4-10.4) fL Neut % (Auto) % Lymph % (Auto) % [place]ruff % (Auto) % Eos % (Auto) % Baso % (Auto) % Neut # (Auto) (1.8-7.7) 10^3/u L Lymph # (Auto) (0.8-4.8) 10^3/u L [place] # (Auto) (0.2-0.9) 10^3/u L Eos # (Auto) (0.0-0.8) 10^3/u L Baso # (Auto) (0.0-0.1) 10^3/u L Nucleated RBC % (a uto) % Nucleated RBCs # /100WBC Sodium (136-145) mmol/L Potassium (3.5-5.1) mmol/L Chloride (98-107) mmol/L Carbon Dioxide (22-29) mmol/L Anion Gap (5-19) BUN (8-23) mg/dL Creatinine (0.5-0.9) mg/dL GFR Calculation Glucose (65-115) mg/dL Calculated Osmolal ity (285-295) mOsm/k g Calcium (8.5-10.5) mg/dL Total Bilirubin (0.15-1.2) mg/dL AST (0-32) U/L ALT (0-33) U/L Alkaline Phosphata se (35-105) IU/L Total Protein (6.6-8.7) g/dL Albumin (3.5-5.2) g/dL Globulin (1.3-4.6) g/dL Urine Color (Yellow) Urine Appearance (CLEAR) Urine pH (5-7) Ur Specific Gravit y (1.005-1.030) Urine Protein (Negative) Urine Glucose (UA) (Normal) Urine Ketones (Negative) Urine Blood (Negative) Urine Nitrate (Negative) Urine Bilirubin (Negative) Urine Urobilinogen (Negative) mg/dL Ur Leukocyte Vale ase (Negative) Digoxin 0.7 (0.6-1.2) ng/mL Discharge Plan Discharge Patient Disposition: Home Clinical Impression: Medication side effects, Nausea, Leg ulcer Condition: Stable Prescriptions: New Zofran 4 mg tablet 4 mg PO Q6H PRN (Reason: nausea and vomiting) Qty: 20 RF: 0 No Action lisinopril 10 mg tablet 10 mg PO DAILY RF: 0 levothyroxine 88 mcg tablet 88 mcg PO DAILY RF: 0 digoxin 125 mcg (0.125 mg) tablet 125 mcg PO DAILY RF: 0 Eliquis 5 mg tablet 5 mg PO BID RF: 0 furosemide 40 mg tablet 20 mg PO QAM RF: 0 gabapentin 600 mg tablet 600 mg PO TID RF: 0 loratadine 10 mg tablet 10 mg PO DAILY RF: 0 Myrbetriq 50 mg tablet extended release 24 hr 50 mg PO Q24H RF: 0 calcium carbonate [[place]yster [place] Calcium] 500 mg calcium (1,250 mg) tablet 500 mg PO BID RF: 0 tizanidine 2 mg capsule 4 mg PO BID PRN (Reason: Spasms) RF: 0 trazodone 50 mg Tablet 25 - 50 mg PO BEDTIME PRN (Reason: Sleep) RF: 0 alendronate 70 mg tablet 70 mg PO Q7D RF: 0 Thera-Tabs Tablet 1 tab PO BID RF: 0 hydrocodone-acetaminophen [[place]] 10-325 mg Tablet 1 tab PO TID PRN (Reason: Pain) RF: 0 amlodipine [Norvasc] 10 mg Tablet 10 mg PO DAILY RF: 0 montelukast [Singulair] 10 mg Tablet 10 mg PO DAILY RF: 0 pravastatin 20 mg Tablet 20 mg PO DAILY RF: 0 hydroxyzine pamoate 25 mg Capsule 25 mg PO BEDTIME PRN (Reason: unknown) RF: 0 duloxetine [Cymbalta] 60 mg Capsule,Delayed Release(Dr/Ec) 60 mg PO DAILY RF: 0 cholecalciferol (vitamin D3) 1,250 mcg (50,000 unit) capsule 50,000 unit PO Q7D RF: 0 Anoro Ellipta 62.5-25 mcg/actuation Blister With Device 1 inh INHALATION DAILY RF: 0 meloxicam 7.5 mg tablet 7.5 mg PO DAILY RF: 0 albuterol sulfate [Ventolin HFA] 90 mcg/actuation Hfa Aerosol Inhaler 2 puff INHALATION Q4H PRN (Reason: Shortness Of Breath) RF: 0 fluticasone propionate [Flonase Allergy Relief] 50 mcg/actuation [place],Suspension 1 - 2 spray INTRANASAL DAILY RF: 0 nitroglycerin 0.4 mg tablet, sublingual 0.4 mg SUBLINGUAL Q5M PRN (Reason: chest pain) Qty: 30 RF: 0 Carafate 100 mg/mL Suspension 10 ml PO BID RF: 0 pantoprazole 40 mg Tablet,Delayed Release (Dr/Ec) 40 mg PO DAILY RF: 0 potassium chloride 20 mEq Tablet Extended Release 20 meq PO 5XD RF: 0 diltiazem HCl 120 mg capsule,extended release 24 hr 120 mg PO DAILY Qty: 30 RF: 0 Discharge Orders: Discharge ED (Routine); Ordered 04/19/20 Ordered By: Trell Avery Referrals: Radha Martinez MD [Primary Care Provider] - Discharge Diet: Clear Liquid Discharge Activity: Resume usual activity Patient Instructions: Abdominal Pain (ED) Activity Restrictions/Additional Instructions: Case management will help you get set up with wound care. Stop the oral antibiotic continue topical antibiotic Coding Level of Care Code ED Co[employer] Set Up Mechanic for Haileyg Fwd Exam Comprehensive
[2020-04-19 11:14] LABS: Add Urine Microscopic? NO
[2020-04-19 11:16] LABS: Basophils % 0.4 %; Eosinophils # 0.3 10^3/uL (0.0-0.8); Eosinophils % 3.6 %; Hemoglobin 13.8 g/dL (11.5-15.3); Lymphocytes % 12.4 %; Mean Corpuscular HGB Conc 32.1 g/dL (30.0-36.0); Mean Corpuscular Hemoglobin 30.1 pg (28.0-34.0); Mean Corpuscular Volume 93.7 fL (81-99); Mean Platelet Volume 9.7 fL (7.4-10.4); Monocytes # 0.7 10^3/uL (0.2-0.9); Monocytes % 8.4 %; Neutrophils # 5.79 10^3/uL (1.8-7.7); Neutrophils % 74.9 %; Nucleated Red Blood Cells % 0 %; Platelet Count 220 10^3/cmm (130-400); Red Blood Count 4.59 10^6/uL (4.1-5.3); Red Cell Distribution Width 13.2 % (12.1-15.1); White Blood Count 7.7 10^3/uL (4.0-10.0)
[2020-04-19] MEDS: sodium chloride 0.9% 1,000 ML 999 ML IV (11:16)
[2020-04-19] MEDS: ondansetron 2 mg/ML SDV 2 mL 4 MG IVP (11:17)
[2020-04-19 11:26] VITALS: PULSE 81; RESP 18; O2SAT 90
[2020-04-19 11:32] LABS: Alanine Aminotransferase 12 U/L (0-33); Albumin Level 4.3 g/dL (3.5-5.2); Alkaline Phosphatase 74 IU/L (35-105); Aspartate Amino Transferase 16 U/L (0-32); Blood Urea Nitrogen 10 mg/dL (8-23); Calcium 9.4 mg/dL (8.5-10.5); Carbon Dioxide 28 mmol/L (22-29); Chloride 104 mmol/L (98-107); Globulin 2.3 g/dL (1.3-4.6); Glucose 111 mg/dL (65-115); Osmolality Calculated 290 mOsm/kg (285-295); Sodium 140 mmol/L (136-145); Total Bilirubin 0.5 mg/dL (0.15-1.2); Total Protein 6.6 g/dL (6.6-8.7)
[2020-04-19 11:33] LABS: Bilirubin Urine Neg (Negative); Blood Urine Neg (Negative); Glucose Urine UA Norm (Normal); Ketones Urine Negative (Negative); Leukocyte Esterase Urine Negative (Negative); Nitrate Urine Negative (Negative); Protein Urine Neg (Negative); Urine Appearance Clear (CLEAR); Urine Color Yellow (Yellow); Urobilinogen Urine Norm (Negative); pH Urine 7 (5-7)
[2020-04-19 11:50] LABS: Anion Gap 12.1 (5-19); Potassium 4.1 mmol/L (3.5-5.1)
[2020-04-19 11:55] VITALS: BP 173/99; PULSE 67; PULSE 85; RESP 14; RESP 18; O2SAT 90; O2SAT 92
[2020-04-19 12:46] LABS: Digoxin 0.7 ng/mL (0.6-1.2)
--- NOTE | 2020-04-20 09:35 | DCPLANNER ---
manager of patient had message to schedule a follow up appointment for patient with Wound Care. manager of patient called the wound care clinic, spoke with Meron, a follow up appointment is scheduled for Friday, April 24, 2020 at 10:[address] Li. Clinic will call patient with appointment information.
--- NOTE | 2020-05-24 07:43 | DCPLANNER ---
Patient had a follow up appointment scheduled for 04.24.[address] Li at Wound Care - patient did attend appointment.
== END 2020-04-19 12:24 | disposition home or self-care (01) ==
PROVIDERS: Emergency Provider Family Medicine; PCP Family Medicine
DX: R11.0 Nausea (principal); T50.905A Adverse effect of unspecified drugs, medicaments and biological substances, initial encounter; L97.919 Non-pressure chronic ulcer of unspecified part of right lower leg with unspecified severity; Z79.01 Long term (current) use of anticoagulants; I48.91 Unspecified atrial fibrillation; I11.0 Hypertensive heart disease with heart failure; I50.22 Chronic systolic (congestive) heart failure; J44.9 Chronic obstructive pulmonary disease, unspecified; E78.2 Mixed hyperlipidemia; Z87.891 Personal history of nicotine dependence
CPT/HCPCS: 12345; 36415; 80053; 80162; 81003; 85025; 93005; 96361; 96374; 99283; J2405; J7030

== ENCOUNTER 2020-04-24 09:32 | Outpatient (CLI) | payer MEDICARE, MEDICAID, SELFPAY | END 2020-04-24 09:33 | disposition home or self-care (01) | LOC: WOUND 09:33 | PROVIDERS: PCP Family Medicine; Visit Provider Thoracic Surgery (Cardiothoracic Vascular Surgery) | DX: I87.2 Venous insufficiency (chronic) (peripheral) (principal); L97.812 Non-pressure chronic ulcer of other part of right lower leg with fat layer exposed | CPT/HCPCS: 11042; 99214 ==

== ENCOUNTER 2020-04-27 13:03 | Outpatient (CLI) | payer MEDICARE, MEDICAID, SELFPAY | END 2020-04-27 13:04 | disposition home or self-care (01) | LOC: WOUND 13:04 | PROVIDERS: PCP Family Medicine; Visit Provider Surgery | DX: L97.812 Non-pressure chronic ulcer of other part of right lower leg with fat layer exposed (principal) | CPT/HCPCS: 29581 ==

== ENCOUNTER 2020-05-01 09:15 | Outpatient (CLI) | payer MEDICARE, MEDICAID, SELFPAY | END 2020-05-01 09:16 | disposition home or self-care (01) | LOC: WOUND 09:16 | PROVIDERS: PCP Family Medicine; Visit Provider Thoracic Surgery (Cardiothoracic Vascular Surgery) | DX: I87.2 Venous insufficiency (chronic) (peripheral) (principal); L97.812 Non-pressure chronic ulcer of other part of right lower leg with fat layer exposed | CPT/HCPCS: 11042; A6545 ==

== ENCOUNTER → 2020-07-26 15:02 | Outpatient (BNVA) | payer MEDICARE, MEDICAID, SELFPAY | PROVIDERS: PCP Family Medicine; Visit Provider Nurse Practitioner Family | DX: M19.042 Primary osteoarthritis, left hand (principal); M79.642 Pain in left hand | CPT/HCPCS: 73130 ==

== ENCOUNTER 2020-12-05 14:04 | Emergency (ER) | payer MEDICARE, MEDICAID, SELFPAY ==
[2020-12-05 14:05] VITALS: BP 149/92; PULSE 92; RESP 20; O2SAT 96; BMI 27.3
[2020-12-05 14:21] VITALS: PULSE 93
--- NOTE | 2020-12-05 14:21 | XR_ITS ---
WS: [id number] XR chest 1V portable [id number] REASON FOR EXAM: dyspnea/cough FINDINGS: Tortuosity and ectasia of the thoracic aorta without aneurysmal dilatation. The heart is mildly enlar ged. Compared to previous examination of 02/18/2020 there is a density in the medial upper lung right unde rlying the head of the right clavicle. Vague rounded mass density seen overlying the left cardiac silhouette and contiguous with the mid lef t hemidiaphragm. CT chest and abdomen 09/09/2019 demonstrates this to be a small focal defect in the l eft hemidiaphragm with a herniation of fat. Not as well demonstrated on the previous examination of 04/19/2019. No other significant finding. XR/XR chest 1V portable [id number] IMPRESSION: No findings for an acute or subacute pneumonitis. The density in the right uppe r lung could potentially be due to overlap of clavicle and rib however the dens ity appears excessive for that. Follow-up chest x-ray to confirm or CT scan of the chest for further evaluation.
[2020-12-05 14:22] VITALS: BP 149/92; PULSE 89; RESP 20; O2SAT 97
--- NOTE | 2020-12-05 14:22 | ECG_ITS ---
[facility] Test Date: 2020-12-05 Pat Name: Arielle Vences Department: Room: Gender: Female Jewel Waxer: : 1940 Requested By: Trell Keen Order Number: [id number] Reading MD: NANCY DAVIS Measurements Intervals [place] Rate: 93 P: IN: QRS: -43 QRSD: 89 T: 59 QT: 348 QTc: 435 Interpretive Statements ATRIAL FIBRILLATION LEFT AXIS DEVIATION [QRS AXIS < -30] SEPTAL MYOCARDIAL INFARCTION , PROBABLY OLD [40+ ms Q WAVE IN V1/V2] Compared to ECG 04/19/2020 11:02:36 Left-axis deviation now present Myocardial infarct finding still present Electronically Signed On 12-05-2020 19:27:20 CDT by NANCY DAVIS [id number]
--- NOTE | 2020-12-05 14:33 | ED_ITS ---
HPI - Chest Pain General: Chief Complaint: Chest Pain Stated Complaint: CHEST PAIN Time Seen by Provider: 12/05/20 14:05 History of Present Illness: HPI narrative: 79-year-old female presents emergency room via EMS with a complaint of chest pain she was at a clinic evidently sitting at rest he began having chest pain radiating into her back she rated as a 5 of 10 she was a little bit tachypneic she denies any diaphoresis or nausea. She was given topical nitro by EMS reports the pain is improved to 2 out of 10. Patient denies any diaphoresis or any vomiting. She has a history of atrial fibrillation for which she is on apixaban and digitoxin and diltiazem. She has no known history of any coronary artery disease. MD complaint: chest pain and chest heaviness Pertinent past history: other (Atrial fibrillation) Onset (ago): minute(s) Timing of current episode: episodic Prior episodes: Yes Onset: during rest Pain location: left chest Pain radiation: back Severity: moderate Pain scale (0-10): 5 Quality: aching and heaviness Relieving factors: nitroglycerin Exacerbating factors: nothing Associated symptoms: Deny abdominal pain, diaphoresis, dyspnea, fever(s), leg edema, nausea, palpitations, sense of impending doom, syncope or vomiting Treatment prior to arrival: nitroglycerin Review of Systems Const: Denies: fever(s) or diaphoresis ENMT: Denies: throat pain, ear or mastoid pain, nasal discharge or nasal congestion Card: Denies: palpitations or syncope Resp: Denies: dyspnea GI: Denies: abdominal pain, nausea or vomiting : Denies: flank pain, difficulty voiding, dysuria, urinary frequency or urinary urgency Skin/Breast: Denies: rash or pruritus [facility] ED PFS: Medical History (Updated 12/09/20 @ 17:21 by JACKELIN Sampson) Acid reflux Afib Anal fissure Chronic back pain Chronic systolic (congestive) heart failure COPD (chronic obstructive pulmonary disease) Essential hypertension Flu-like symptoms Lymphedema of both lower extremities Mixed hyperlipidemia Surgical History History of hysterectomy Social History Second hand smoke exposure: No Smoking risk assessment/counseling performed?: No Alcohol intake: never Desire information about alcohol rehabilitation?: No Counseling given: No Desire information about substance/drug rehabilitation?: No Counseling given: No Adopted: No Caregiver/support person: No Lives independently: Yes Household members: spouse Housing: House Marital status: service: No Current occupational status: retired History of recent travel: No Current gender identity: Female Physical Exam Const: COMMON NORMALS: no acute distress GENERAL APPEARANCE: cooperative and comfortable ORIENTATION/CONSCIOUSNESS: Yes awake, Yes oriented to person, Yes oriented to place and Yes oriented to time HENMT: COMMON NORMALS: normocephalic, atraumatic and hearing grossly normal bilaterally HEAD & SCALP: normocephalic and atraumatic Neck/C-Spine: COMMON NORMALS: no JVD Resp: COMMON NORMALS: normal respiratory effort, No retractions, No use of accessory muscles and clear to auscultation bilaterally AUSCULTATION: clear to auscultation bilaterally Cardio: COMMON NORMALS: no JVD, regular rate, regular rhythm and No murmurs present (Cardio) RATE: regular rate RHYTHM: regular rhythm GI: COMMON NORMALS: Soft to palpation and No hepatosplenomegaly present AUSCULTATION: Yes normoactive bowel sounds PALPATION: Yes Soft to palpation, No Tenderness to palpation present (GI), No Guarding due to palpation present (GI) and Yes No hepatosplenomegaly present Extremity: COMMON NORMALS: normal to inspection, capillary refill normal, no clubbing, cyanosis or edema, no calf tenderness and no pedal edema Neuro: SENSORIUM/ORIENTATION: Yes oriented to person, Yes oriented to place and Yes oriented to time Skin: COMMON NORMALS: no rashes or lesions noted GENERAL SKIN EXAM: no rashes or lesions noted Course Vital Signs: Vital signs: Vital Signs Pulse Rate 109 H 12/05/20 16:30 Respiratory Rate 20 H 12/05/20 15:30 Blood Pressure 143/97 12/05/20 16:30 Pulse Oximetry 92 12/05/20 16:30 MDM - Chest Pain MDM Narrative: Medical decision making narrative: Labs EKG and imaging reviewed as in chart. We will add isosorbide mononitrate and aspirin. Discussed options with the patient including possible observation to prefer to go home. We will set her up for an outpatient sestamibi stress test. Patient encouraged to return if she has any further problems. Lab Data: Labs: Lab Results 12/05/20 12/05/20 12/05/20 Range/Units 14:54 14:54 14:54 WBC 8.5 (4.0-10.0) 10^3/ uL RBC 4.63 (4.1-5.3) 10^6/u L Hgb 13.7 (11.5-15.3) g/dL Hct 42.8 (37.0-47.0) % MCV 92.4 (81-99) fl MCH 29.6 (28.0-34.0) pg MCHC 32.0 (30.0-36.0) g/dL RDW 13.4 (12.1-15.1) % Plt Count 194 (130-400) 10^3/c mm MPV 9.7 (7.4-10.4) fL Neut % (Auto) 72.5 % Lymph % (Auto) 15.0 % [place] % (Auto) 9.2 % Eos % (Auto) 2.5 % Baso % (Auto) 0.6 % Neut # (Auto) 6.16 (1.8-7.7) 10^3/u L Lymph # (Auto) 1.3 (0.8-4.8) 10^3/u L [place] # (Auto) 0.8 (0.2-0.9) 10^3/u L Eos # (Auto) 0.2 (0.0-0.8) 10^3/u L Baso # (Auto) 0.1 (0.0-0.1) 10^3/u L Nucleated RBC % (a uto) 0 % Nucleated RBCs # 0.0 /100WBC Sodium 138 (136-145) mmol/L Potassium 4.1 (3.5-5.1) mmol/L Chloride 103 (98-107) mmol/L Carbon Dioxide 26 (22-29) mmol/L Anion Gap 13.1 (5-19) BUN 10 (8-23) mg/dL Creatinine 0.8 (0.5-0.9) mg/dL GFR Calculation Not Reportable Glucose 99 (65-115) mg/dL Calculated Osmolal ity 285 (285-295) mOsm/k g Calcium 8.4 L (8.5-10.5) mg/dL Total Bilirubin 0.3 (0.15-1.2) mg/dL AST 15 (0-32) U/L ALT 12 (0-33) U/L Alkaline Phosphata se 64 (35-105) IU/L Troponin T Baselin e 17 H (0-10) ng/L Troponin T 120 Min [place] & [place] (0-10) ng/L Delta Troponin T (0-10) ABS# Total Protein 5.9 L (6.6-8.7) g/dL Albumin 4.2 (3.5-5.2) g/dL Globulin 1.7 (1.3-4.6) g/dL 12/05/20 Range/Units 17:15 WBC (4.0-10.0) 10^3/ uL RBC (4.1-5.3) 10^6/u L Hgb (11.5-15.3) g/dL Hct (37.0-47.0) % MCV (81-99) fl MCH (28.0-34.0) pg MCHC (30.0-36.0) g/dL RDW (12.1-15.1) % Plt Count (130-400) 10^3/c mm MPV (7.4-10.4) fL Neut % (Auto) % Lymph % (Auto) % [place] % (Auto) % Eos % (Auto) % Baso % (Auto) % Neut # (Auto) (1.8-7.7) 10^3/u L Lymph # (Auto) (0.8-4.8) 10^3/u L [place] # (Auto) (0.2-0.9) 10^3/u L Eos # (Auto) (0.0-0.8) 10^3/u L Baso # (Auto) (0.0-0.1) 10^3/u L Nucleated RBC % (a uto) % Nucleated RBCs # /100WBC Sodium (136-145) mmol/L Potassium (3.5-5.1) mmol/L Chloride (98-107) mmol/L Carbon Dioxide (22-29) mmol/L Anion Gap (5-19) BUN (8-23) mg/dL Creatinine (0.5-0.9) mg/dL GFR Calculation Glucose (65-115) mg/dL Calculated Osmolal ity (285-295) mOsm/k g Calcium (8.5-10.5) mg/dL Total Bilirubin (0.15-1.2) mg/dL AST (0-32) U/L ALT (0-33) U/L Alkaline Phosphata se (35-105) IU/L Troponin T Baselin e (0-10) ng/L Troponin T 120 Min [place] & [place] 15.64 H (0-10) ng/L Delta Troponin T -1.36 L (0-10) ABS# Total Protein (6.6-8.7) g/dL Albumin (3.5-5.2) g/dL Globulin (1.3-4.6) g/dL Discharge Plan Discharge Patient Disposition: Home Clinical Impression: Atypical chest pain, Essential hypertension Condition: Stable Prescriptions: New isosorbide mononitrate 30 mg tablet extended release 24 hr 30 mg PO DAILY Qty: 30 RF: 0 aspirin 81 mg tablet,delayed release (DR/EC) 81 mg PO DAILY Qty: 30 RF: 0 No Action lisinopril 10 mg tablet 10 mg PO DAILY RF: 0 levothyroxine 88 mcg tablet 88 mcg PO DAILY RF: 0 digoxin 125 mcg (0.125 mg) tablet 125 mcg PO DAILY RF: 0 Eliquis 5 mg tablet 5 mg PO BID RF: 0 furosemide 40 mg tablet 20 mg PO DAILY RF: 0 gabapentin 600 mg tablet 600 mg PO TID RF: 0 loratadine 10 mg tablet 10 mg PO DAILY RF: 0 Myrbetriq 50 mg tablet extended release 24 hr 50 mg PO Q24H RF: 0 tizanidine 2 mg capsule 4 mg PO BID PRN (Reason: Spasms) RF: 0 triamcinolone acetonide 0.1 % cream See Rx Instructions .ROUTE .COMPLEX Qty: 80 RF: 0 trazodone 50 mg Tablet 25 - 50 mg PO BEDTIME PRN (Reason: Sleep) RF: 0 alendronate 70 mg tablet 70 mg PO Q7D RF: 0 amlodipine [Norvasc] 10 mg Tablet 10 mg PO DAILY RF: 0 montelukast [Singulair] 10 mg Tablet 10 mg PO DAILY RF: 0 pravastatin 20 mg Tablet 20 mg PO DAILY RF: 0 hydroxyzine pamoate 25 mg Capsule 25 mg PO BEDTIME PRN (Reason: unknown) RF: 0 duloxetine [Cymbalta] 60 mg Capsule,Delayed Release(Dr/Ec) 60 mg PO DAILY RF: 0 cholecalciferol (vitamin D3) 1,250 mcg (50,000 unit) capsule 50,000 unit PO Q7D RF: 0 hydrocodone-acetaminophen 10-325 mg tablet 1 tab PO Q8H PRN (Reason: Pain) RF: 0 donepezil 10 mg tablet 10 mg PO DAILY RF: 0 metformin 500 mg tablet extended release 24 hr 500 mg PO DAILY RF: 0 Prolia 60 mg/mL syringe See Rx Instructions .ROUTE .COMPLEX RF: 0 meloxicam 7.5 mg tablet 7.5 mg PO DAILY RF: 0 albuterol sulfate [Ventolin HFA] 90 mcg/actuation Hfa Aerosol Inhaler 2 puff INHALATION Q4H PRN (Reason: Shortness Of Breath) RF: 0 fluticasone propionate [Flonase Allergy Relief] 50 mcg/actuation [place],Suspension 1 - 2 spray INTRANASAL DAILY RF: 0 nitroglycerin 0.4 mg tablet, sublingual 0.4 mg SUBLINGUAL Q5M PRN (Reason: chest pain) Qty: 30 RF: 0 sucralfate [Carafate] 100 mg/mL Suspension 10 ml PO BID RF: 0 pantoprazole 40 mg Tablet,Delayed Release (Dr/Ec) 40 mg PO DAILY RF: 0 potassium chloride 20 mEq Tablet Extended Release 20 meq PO 5XD RF: 0 diltiazem HCl 120 mg capsule,extended release 24 hr 120 mg PO DAILY Qty: 30 RF: 0 ondansetron HCl [Zofran] 4 mg tablet 4 mg PO Q6H PRN (Reason: nausea and vomiting) Qty: 20 RF: 0 Discharge Orders: Discharge ED (Routine); Ordered 12/05/20 Ordered By: Trell Avery Referrals: Radha Martinez MD [Primary Care Provider] - Discharge Diet: Usual diet Discharge Activity: Limit activity as instructed Patient Instructions: Opioid Safety Activity Restrictions/Additional Instructions: Avoid strenuous activity. Take baby aspirin once daily. Start on isosorbide mononitrate 30 mg once daily. Case management will call to set up a stress test. Coding Level of Care Code ED Topper Packer for Chg Fwd Exam Comprehensive
[2020-12-05 15:09] LABS: Basophils # 0.1 10^3/uL (0.0-0.1); Basophils % 0.6 %; Eosinophils # 0.2 10^3/uL (0.0-0.8); Eosinophils % 2.5 %; Hematocrit 42.8 % (37.0-47.0); Hemoglobin 13.7 g/dL (11.5-15.3); Lymphocytes # 1.3 10^3/uL (0.8-4.8); Mean Corpuscular Hemoglobin 29.6 pg (28.0-34.0); Mean Corpuscular Volume 92.4 fl (81-99); Mean Platelet Volume 9.7 fL (7.4-10.4); Monocytes # 0.8 10^3/uL (0.2-0.9); Monocytes % 9.2 %; Neutrophils # 6.16 10^3/uL (1.8-7.7); Neutrophils % 72.5 %; Nucleated Red Blood Cells % 0 %; Platelet Count 194 10^3/cmm (130-400); Red Blood Count 4.63 10^6/uL (4.1-5.3); Red Cell Distribution Width 13.4 % (12.1-15.1); White Blood Count 8.5 10^3/uL (4.0-10.0)
[2020-12-05 15:27] LABS: Troponin(5th) Baseline 17 ng/L (0-10)
[2020-12-05 15:29] LABS: Alanine Aminotransferase 12 U/L (0-33); Albumin Level 4.2 g/dL (3.5-5.2); Alkaline Phosphatase 64 IU/L (35-105); Anion Gap 13.1 (5-19); Aspartate Amino Transferase 15 U/L (0-32); Blood Urea Nitrogen 10 mg/dL (8-23); Calcium 8.4 mg/dL (8.5-10.5); Carbon Dioxide 26 mmol/L (22-29); Chloride 103 mmol/L (98-107); Globulin 1.7 g/dL (1.3-4.6); Glucose 99 mg/dL (65-115); Osmolality Calculated 285 mOsm/kg (285-295); Potassium 4.1 mmol/L (3.5-5.1); Sodium 138 mmol/L (136-145); Total Bilirubin 0.3 mg/dL (0.15-1.2); Total Protein 5.9 g/dL (6.6-8.7)
[2020-12-05 15:30] VITALS: BP 135/101; PULSE 88; RESP 20; O2SAT 95
--- NOTE | 2020-12-05 16:22 | ECG_ITS ---
[facility] Test Date: 2020-12-05 Pat Name: Arielle Vences Department: Room: Gender: Female Pulmonary Specialist: : 1940 Requested By: Trell Keen Order Number: [id number] Reading MD: NANCY DAVIS Measurements Intervals [place] Rate: 91 P: [place]: QRS: -43 QRSD: 96 T: 63 QT: 360 QTc: 444 Interpretive Statements ATRIAL FIBRILLATION LEFT AXIS DEVIATION [QRS AXIS < -30] PATTERN CONSISTENT WITH PULMONARY DISEASE SEPTAL MYOCARDIAL INFARCTION , PROBABLY OLD [40+ ms Q WAVE IN V1/V2] Compared to ECG 12/05/2020 14:44:04 No significant changes Electronically Signed On 12-05-2020 19:28:11 CDT by NANCY DAVIS [id number]
[2020-12-05 16:30] VITALS: BP 143/97; PULSE 109; O2SAT 92
[2020-12-05 17:37] LABS: Troponin 5 2HR 15.64 ng/L (0-10)
[2020-12-05 17:39] LABS: Troponin 5 2HR Delta -1.36 ABS# (0-10)
--- NOTE | 2020-12-06 15:16 | DCPLANNER ---
integrated marketing manager had message to schedule an outpatient stress test for patient. integrated marketing manager faxed signed order to centralized scheduling, who will call patient with appointment information.
--- NOTE | 2020-12-27 14:46 | DCPLANNER ---
Addendum entered by Chelly Hong 04/12/21 15:07: Patient had an outpatient stress test scheduled for 01.01.21 - patient did not attend appointment. Original Note: Patient has a follow up appointment scheduled for Friday, January 01, 2021 at 1:00.
== END 2020-12-05 18:26 | disposition home or self-care (01) ==
PROVIDERS: Emergency Provider Family Medicine; PCP Family Medicine
DX: R07.89 Other chest pain (principal); Z79.01 Long term (current) use of anticoagulants; Z79.84 Long term (current) use of oral hypoglycemic drugs; I11.0 Hypertensive heart disease with heart failure; I50.22 Chronic systolic (congestive) heart failure; J44.9 Chronic obstructive pulmonary disease, unspecified; E78.2 Mixed hyperlipidemia
CPT/HCPCS: 71045; 80053; 84484; 85025; 93005; 99283

== ENCOUNTER 2020-12-20 09:09 | Outpatient (CLI) | payer MEDICARE, MEDICAID, SELFPAY ==
[2020-12-20 09:58] LABS: Basophils % 0.7 %; Eosinophils # 0.4 10^3/uL (0.0-0.8); Eosinophils % 6.1 %; Hematocrit 46.8 % (37.0-47.0); Hemoglobin 14.7 g/dL (11.5-15.3); Lymphocytes # 1.4 10^3/uL (0.8-4.8); Mean Corpuscular HGB Conc 31.4 g/dL (30.0-36.0); Mean Corpuscular Hemoglobin 29.5 pg (28.0-34.0); Mean Platelet Volume 9.5 fL (7.4-10.4); Monocytes # 0.7 10^3/uL (0.2-0.9); Monocytes % 11.5 %; Neutrophils # 3.39 10^3/uL (1.8-7.7); Neutrophils % 57.4 %; Nucleated Red Blood Cells % 0 %; Platelet Count 237 10^3/cmm (130-400); Red Blood Count 4.98 10^6/uL (4.1-5.3); Red Cell Distribution Width 13.4 % (12.1-15.1); White Blood Count 5.9 10^3/uL (4.0-10.0)
[2020-12-20 10:27] LABS: Creatinine Urine, Random 121 mg/dL (28-217); Microalbum Creatinine Ratio Ur 25 mg/dL (0-20); Microalbumin Random Urine 3 ug/dL (0-20)
[2020-12-20 10:27] LABS: Estmated Average Glucose 120; Hemoglobin A1C 5.8 % (4.0-6.0)
[2020-12-20 10:35] LABS: Urine Color Yellow (Yellow)
[2020-12-20 10:36] LABS: Add Urine Culture? Yes; Add Urine Microscopic? YES; Bacteria Urine 2+ /hpf; Bilirubin Urine Neg (Negative); Blood Urine Neg (Negative); Glucose Urine UA Norm (Normal); Ketones Urine Negative (Negative); Leukocyte Esterase Urine 1+ (Negative); Nitrate Urine Negative (Negative); Protein Urine Neg (Negative); RBC Urine 0-4 /hpf (0-2); Squamous Epithelial Cell Urine 0-4 /hpf (0-5); Urine Appearance Clear (CLEAR); Urobilinogen Urine Norm (Negative); pH Urine 5 (5-7)
[2020-12-20 10:47] LABS: 25 Hydroxy Vitamin D 29 ng/mL (30-100); Alanine Aminotransferase 12 U/L (0-33); Albumin Level 4.1 g/dL (3.5-5.2); Alkaline Phosphatase 64 IU/L (35-105); Anion Gap 11.6 (5-19); Aspartate Amino Transferase 17 U/L (0-32); Blood Urea Nitrogen 12 mg/dL (8-23); Calcium 8.8 mg/dL (8.5-10.5); Carbon Dioxide 27 mmol/L (22-29); Chloride 105 mmol/L (98-107); Chol HDL Ratio 2.77 mg/dL (0.0-4.40); Cholesterol 213 mg/dL (0-200); Globulin 2.9 g/dL (1.3-4.6); Glucose 76 mg/dL (65-115); HDL Cholesterol 77 mg/dL (60-100); LDL Cholesterol Calculated 111 mg/dL (50-129); LDL HDL Ratio 1.44 RATIO (0.00-3.22); Magnesium 2.2 mg/dL (1.7-2.3); Osmolality Calculated 287 mOsm/kg (285-295); Potassium 4.6 mmol/L (3.5-5.1); Sodium 139 mmol/L (136-145); Thyroid Stimulating Hormone 4.63 uIU/mL (0.27-4.20); Total Bilirubin 0.4 mg/dL (0.15-1.2); Triglycerides 123 mg/dL (0-150); Uric Acid 5.6 mg/dL (2.4-5.7); Vitamin B12 439 pg/mL (232-1245)
[2020-12-20 11:34] LABS: Free T4 Free Thyroxine 1.19 ng/dL (0.82-1.77)
== END 2020-12-20 09:10 | disposition home or self-care (01) ==
LOC: LAB 09:31
PROVIDERS: PCP Family Medicine; Visit Provider Internal Medicine
DX: E03.9 Hypothyroidism, unspecified (principal); E78.5 Hyperlipidemia, unspecified; M19.90 Unspecified osteoarthritis, unspecified site
CPT/HCPCS: 36415; 80053; 80061; 81001; 82044; 82306; 82607; 83036; 83735; 84439; 84443; 84550; 85025; 87086

== ENCOUNTER → 2021-01-15 13:25 | Outpatient (BNVA) | payer MEDICARE, MEDICAID, SELFPAY | PROVIDERS: PCP Family Medicine; Visit Provider Nurse Practitioner Family | DX: Z20.822 Contact with and (suspected) exposure to COVID-19 (principal) | CPT/HCPCS: 87635 ==

== ENCOUNTER 2021-02-16 11:06 | Observation (INO) | payer MEDICARE, MEDICAID, SELFPAY ==
[2021-02-16] VITALS (8 sets, daily range): BP systolic 130–195; BP diastolic 72–114; PULSE 83–113; RESP 16–20; TEMP 36.7–36.9; O2SAT 92–98; BMI 27.3; BMI 29.5
--- NOTE | 2021-02-16 11:24 | ED_ITS ---
HPI - Abdominal Pain General: Chief Complaint: Abdominal Pain Stated Complaint: For week+ have had abd/groin pains Time Seen by Provider: 02/16/21 11:24 History of Present Illness: HPI narrative: Ms. Vences is a 80-year-old lady with complex past medical history including A. fib on anticoagulation, CHF, hypertension, hyperlipidemia, COPD and history of abdominal pain who presents to the emergency department due to abdominal pain. She reports symptom onset was approximately 1 week ago. No specific known provoking factor. Since that time she has had near constant bilateral mid to lower abdominal discomfort which she describes as a deep ache. This is moderate in intensity and has persisted. She has mild associated nausea and decreased p.o. intake but no vomiting. She does not endorse diarrhea however her reports that her stools have been lo oser. No urinary symptoms. She did not eat hardly anything on Thanksgiving and then laid in bed almost all yesterday. She does have mild improvement with lying down but her symptoms do not completely go away. She did not take her medications this morning and heart rate is mildly fast but no associated shortness of breath or chest pain. No other specific changes in health, exacerbating, or alleviating factors identified. Review of Systems General: Reports: 10 or more systems reviewed and unremarkable except in HPI and below PFSH ED PFSH: Medical History Acid reflux Afib Anal fissure Chronic back pain Chronic systolic (congestive) heart failure COPD (chronic obstructive pulmonary disease) Essential hypertension Flu-like symptoms Lymphedema of both lower extremities Mixed hyperlipidemia Surgical History History of hysterectomy Family History Sister Stroke CAD (coronary artery disease) [place] @ 75 Hypertension Brother Cancer Father Cancer Social History Second hand smoke exposure: No Smoking risk assessment/counseling performed?: No Alcohol intake: never Desire information about alcohol rehabilitation?: No Counseling given: No Desire information about substance/drug rehabilitation?: No Counseling given: No Adopted: No Caregiver/support person: No Lives independently: Yes Household members: spouse Housing: House Marital status: service: No Current occupational status: retired History of recent travel: No Current gender identity: Female Physical Exam Narrative: EXAM NARRATIVE: GENERAL/CONSTITUTIONAL -mildly ill-appearing. No acute distress. Eyes - PERRL, no conjunctival injection ENMT - Atraumatic external nose and ears. Moist mucous membranes NECK - supple. trachea midline CARDIOVASCULAR -irregularly irregular rhythm. Normal peripheral perfusion. RESPIRATORY - clear to auscultation bilaterally. ABDOMEN/GI - generalized tenderness to palpation in the lower and mid abdomen bilaterally. Nondistended. No tenderness to percussion or evidence of peritonitis MSK - Extremities without obvious deformity or tenderness to palpation SKIN - Warm, Dry NEURO - alert and appropriately oriented. Moves all extremities equally. Course ED course: - Patient was seen and evaluated by me at bedside - Patient placed on cardiac monitors, IV access obtained - Initial evaluation notable for somewhat ill appearance, abdominal tenderness palpation. Heart rate variable in atrial fibrillation 90-110 for the most part. - Symptom treatment ordered. - Labs notable for no leukocytosis. No significant metabolic abnormality, lactate normal. Delta troponin negative, BNP is mildly elevated. Urinalysis not concerning for urinary tract infection - Imaging notable for diverticulitis with intramural abscess. I did discuss this with surgery on-call, no indication for drainage at this time. - Upon serial reexamination after treatment the patient was mildly improved. Given patient's severely decreased oral intake over the past few days likelihood of tolerating oral antibiotics is low in addition to need for IV antibiotics due to intramural abscess. - Based on patient history, evaluation, labs, and imaging as interpreted the most likely cause of the patient's condition is diverticulitis with abscess - The results of ED evaluation were discussed with the patient including plan for admission due to requirement for level of care not available if discharged to prevent significant worsening/deterioration. -Hospitalist service contacted and agreed admit the patient. - Patient was admitted without further deterioration or significant events. Vital Signs: Vital signs: Vital Signs Temperature 98.1 F 02/18/21 16:16 Pulse Rate 83 02/18/21 16:16 Respiratory Rate 18 02/18/21 16:16 Blood Pressure 132/69 02/18/21 16:16 Pulse Oximetry 94 02/18/21 16:16 MDM - Abdominal Pain Medical Records: Attestation: I reviewed the patient's medical records. Lab Data: Attestation: I reviewed the patient's lab results. Labs: Lab Results 02/16/21 02/16/21 02/16/21 11:25 11:25 11:25 WBC 8.8 10^3/uL 10^3/ uL (4.0-10.0) RBC 5.04 10^6/uL 10^6 /uL (4.1-5.3) Hgb 15.1 g/dL g/dL (11.5-15.3) Hct 47.1 % H % (37.0-47.0) MCV 93.5 fl fl (81-99) MCH 30.0 pg pg (28.0-34.0) MCHC 32.1 g/dL g/dL (30.0-36.0) RDW 12.6 % % (12.1-15.1) Plt Count 179 10^3/cmm 10^3 /cmm (130-400) MPV 10.1 fL fL (7.4-10.4) Neut % (Auto) 73.5 % % Lymph % (Auto) 13.3 % % O'Brien % (Auto) 9.8 % % Eos % (Auto) 2.5 % % Baso % (Auto) 0.6 % % Neut # (Auto) 6.49 10^3/uL 10^3 /uL (1.8-7.7) Lymph # (Auto) 1.2 10^3/uL 10^3/ uL (0.8-4.8) O'Brien # (Auto) 0.9 10^3/uL 10^3/ uL (0.2-0.9) Eos # (Auto) 0.2 10^3/uL 10^3/ uL (0.0-0.8) Baso # (Auto) 0.1 10^3/uL 10^3/ uL (0.0-0.1) Nucleated RBC % (a uto) 0 % % Nucleated RBCs # 0.0 /100WBC /100W BC Sodium 138 mmol/L mmol/L (136-145) Potassium 4.1 mmol/L mmol/L (3.5-5.1) Chloride 100 mmol/L mmol/L (98-107) Carbon Dioxide 24 mmol/L mmol/L (22-29) Anion Gap 18.1 (5-19) BUN 8 mg/dL mg/dL (8-23) Creatinine 0.8 mg/dL mg/dL (0.5-0.9) GFR Calculation Not Reportable Glucose 90 mg/dL mg/dL (65-115) Calculated Osmolal ity 284 mOsm/kg L mOs m/kg (285-295) Lactate Calcium 8.9 mg/dL mg/dL (8.5-10.5) Total Bilirubin 0.6 mg/dL mg/dL (0.15-1.2) AST 14 U/L U/L (0-32) ALT 10 U/L U/L (0-33) Alkaline Phosphata se 70 IU/L IU/L (35-105) Troponin T Baselin e 21 ng/L H ng/L (0-10) Troponin T 120 Min [place] Delta Troponin T NT-Pro-B Natriuret Pep 2435 pg/mL H pg/m L (0-450) Total Protein 7.2 g/dL g/dL (6.6-8.7) Albumin 4.2 g/dL g/dL (3.5-5.2) Globulin 3.0 g/dL g/dL (1.3-4.6) Lipase 13 U/L U/L (13-60) TSH 3.62 uIU/mL uIU/m L (0.27-4.20) Urine Color Urine Appearance Urine pH Ur Specific Gravit y Urine Protein Urine Glucose (UA) Urine Ketones Urine Blood Urine Nitrate Urine Bilirubin Urine Urobilinogen Ur Leukocyte Vale ase Digoxin < 0.3 ng/mL L ng/ mL (0.6-1.2) 02/16/21 02/16/21 02/16/21 11:58 12:05 13:30 WBC RBC Hgb Hct MCV MCH MCHC RDW Plt Count MPV Neut % (Auto) Lymph % (Auto) O'Brien % (Auto) Eos % (Auto) Baso % (Auto) Neut # (Auto) Lymph # (Auto) O'Brien # (Auto) Eos # (Auto) Baso # (Auto) Nucleated RBC % (a uto) Nucleated RBCs # Sodium Potassium Chloride Carbon Dioxide Anion Gap BUN Creatinine GFR Calculation Glucose Calculated Osmolal ity Lactate 0.7 mmol/L mmol/L (0.5-2.2) Calcium Total Bilirubin AST ALT Alkaline Phosphata se Troponin T Baselin e Troponin T 120 Min [place] 20.88 ng/L H ng/L (0-10) Delta Troponin T -0.12 ABS# L ABS# (0-10) NT-Pro-B Natriuret Pep Total Protein Albumin Globulin Lipase TSH Urine Color Yellow (Yellow) Urine Appearance Clear (CLEAR) Urine pH 7 (5-7) Ur Specific Gravit y 1.005 (1.005-1.030) Urine Protein Neg (Negative) Urine Glucose (UA) Norm (Normal) Urine Ketones Negative (Negative) Urine Blood Neg (Negative) Urine Nitrate Negative (Negative) Urine Bilirubin Neg (Negative) Urine Urobilinogen 4 mg/dL H mg/dL (Negative) Ur Leukocyte Vale ase Negative (Negative) Digoxin EKG Data ^: EKG 1: Attestation: I personally reviewed and interpreted this EKG as follows: EKG interpretation date: 02/16/21 EKG interpretation time: 12:07 Interpretation: Twelve-lead EKG shows an irregular rhythm at a rate of 91. No FL interval, QRS duration 94, QTc 406. Left axis deviation. Interpretation: Atrial fibrillation EKG 2: Attestation: I personally reviewed and interpreted this EKG as follows: EKG interpretation date: 02/16/21 EKG interpretation time: 13:17 Interpretation: Twelve-lead EKG shows an irregular rhythm at a rate of 114. FL interval not present, QRS duration 104, QTc 413. Left axis deviation. Interpretation: Atrial fibrillation. Rapid ventricular response. Finding of rapid ventricular response occurs transiently and does not require treatment at this time. Patient reports that she did not take her medication this morning Discharge Plan Discharge Patient Disposition: Admitted As Inpatient Admit Provider: Rinku Jj Condition: Stable Discharge Diet: Advance as tolerated and Full LIquid Discharge Activity: Increase activity as tolerated Coding Level of Care Code ED [employer] Operator for Juan F Mckinney
--- NOTE | 2021-02-16 11:43 | CTR_ITS ---
PROCEDURE INFORMATION: Exam: CT Abdomen And Pelvis With Contrast Exam date and time: 02/16/2021 11:43 AM Age: 80 years old Clinical indication: Generalized abdominal and groin pain for 1 week. TECHNIQUE: Imaging protocol: Computed tomography of the abdomen and pelvis with contrast. Radiation optimization: All CT scans at this facility use at least one of these dose optimization techniques: automated exposure control; mA and/or kV adjustment per patient size (includes targeted exams where dose is matched to clinical indication); or iterative reconstruction. Contrast material: OMNI 300; Contrast volume: 95 ml; Contrast route: INTRAVENOUS (IV); COMPARISON: CT chest abd pel w con* 09/09/2019 10:01 PM RADIATION DOSE METRICS: Total DLP (mGy-cm): 1451.75 FINDINGS: Lungs: A subpleural pulmonary nodule at the right base is approximately unchanged and measures 3.8 mm (image 6). There is mild scarring at the lung bases. The heart is enlarged. Small hiatal hernia. Liver: The hepatic contour is somewhat nodular suggesting early cirrhosis. Gallbladder and bile ducts: The gallbladder is unremarkable. Pancreas: The pancreas is unremarkable. Spleen: The spleen is unremarkable. Adrenal glands: The adrenal glands are unremarkable. Kidneys and ureters: Bilateral extrarenal pelves are noted. Stomach and bowel: The stomach and small bowel are unremarkable.. Colonic diverticulosis is noted. There is wall thickening of the mid sigmoid colon with adjacent edema compatible with acute diverticulitis. There is an intramural abscess involving the sigmoid colon that measures 1.8 x 1.8 x 1.8 cm. No bekah perforation is seen. There is mild associated free fluid. Appendix: The appendix is unremarkable. Intraperitoneal space: No free intraperitoneal air is identified. Vasculature: There is severe narrowing or occlusion of the proximal-most celiac artery. 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 There is no evidence of rupture. The renal arteries appears severely narrowed proximally. No abdominal aortic aneurysm. Lymph nodes: No retroperitoneal lymphadenopathy. Urinary bladder: The bladder is partially decompressed. Reproductive: There has been prior hysterectomy. Bones/joints: No acute fracture is seen. Soft tissues: Tiny fat containing umbilical hernia. CT/CT abdomen pelvis w con* [id number] IMPRESSION: 1. Findings compatible with acute sigmoid diverticulitis with intramural abscess. There is surrounding edema and mild free fluid. No bekah perforation is seen. 2. 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 There is no evidence of rupture. 3. The renal arteries appears severely narrowed proximally. 4. The hepatic contour is somewhat nodular suggesting early cirrhosis. Correlate with liver function tests. 5. A subpleural pulmonary nodule at the right base is approximately unchanged and measures 3.8 mm. As per Fleischner Society 2017 guidelines for follow-up and management of pulmonary nodules: For patients at low risk (minimal or absent history of smoking and of other known risk factors), no routine follow-up. For patient at high risk (history of smoking or of other known risk factors), recommend optional CT at 12 months. 6. Cardiomegaly. Radiation Dose CTDIVOL = (mGy): DLP = 1451.75 (mGy-cm)
--- NOTE | 2021-02-16 11:43 | XRR_ITS ---
PROCEDURE INFORMATION: Exam: XR Chest Exam date and time: 02/16/2021 11:43 AM Age: 80 years old Clinical indication: Atrial fibrillation. TECHNIQUE: Imaging protocol: XR of the chest. Views: 1 view. COMPARISON: CR XR chest 1V portable [id number] 12/05/2020 2:33 PM FINDINGS: Lungs: Possible nodule at the right base measuring 0.7 cm. No pulmonary consolidation. Pleural spaces: No pleural effusion.. No pneumothorax. Heart/Mediastinum: Cardiac silhouette is unchanged. No gross evidence of pneumomediastinum. Bones/joints: No gross fracture. XR/XR chest 1V portable [id number] IMPRESSION: 1. Possible nodule at the right base measuring 0.[address] chest to better characterize. 2. Persistent cardiomegaly. Radiation Dose CTDIVOL = (mGy): DLP = (mGy-cm)
--- NOTE | 2021-02-16 11:44 | ECG_ITS ---
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: : 1940 Requested By: Louis Farmer Order Number: [id number] Reading MD: NANCY DAVIS Measurements Intervals [place] Rate: 91 P: [place]: QRS: -69 QRSD: 94 T: 20 QT: 357 QTc: 441 Interpretive Statements ATRIAL FIBRILLATION PATTERN CONSISTENT WITH PULMONARY DISEASE LEFT ANTERIOR FASCICULAR BLOCK [QRS AXIS <= -45, QR IN I, RS IN II] Compared to ECG 12/05/2020 16:30:15 Left anterior fascicular block now present Left-axis deviation no longer present Myocardial infarct finding no longer present Electronically Signed On 02-18-2021 12:55:04 HISTORY TEACHER by NANCY DAVIS [id number]
[2021-02-16 11:53] LABS: Basophils # 0.1 10^3/uL (0.0-0.1); Basophils % 0.6 %; Eosinophils # 0.2 10^3/uL (0.0-0.8); Eosinophils % 2.5 %; Hematocrit 47.1 % (37.0-47.0); Hemoglobin 15.1 g/dL (11.5-15.3); Lymphocytes # 1.2 10^3/uL (0.8-4.8); Lymphocytes % 13.3 %; Mean Corpuscular HGB Conc 32.1 g/dL (30.0-36.0); Mean Corpuscular Volume 93.5 fl (81-99); Mean Platelet Volume 10.1 fL (7.4-10.4); Monocytes # 0.9 10^3/uL (0.2-0.9); Monocytes % 9.8 %; Neutrophils # 6.49 10^3/uL (1.8-7.7); Neutrophils % 73.5 %; Nucleated Red Blood Cells % 0 %; Platelet Count 179 10^3/cmm (130-400); Red Blood Count 5.04 10^6/uL (4.1-5.3); Red Cell Distribution Width 12.6 % (12.1-15.1); White Blood Count 8.8 10^3/uL (4.0-10.0)
[2021-02-16] MEDS: ondansetron 2 mg/ML SDV 2 mL 4 MG IVP (11:53)
[2021-02-16] MEDS: morphine 4 mg/mL SDV 1 mL IVP (11:53)
[2021-02-16] MEDS: sodium chloride 0.9% 500 ML IV (11:53)
[2021-02-16 12:09] LABS: Add Urine Microscopic? NO; Charge for UA Resulting for Rev
[2021-02-16 12:21] LABS: Troponin(5th) Baseline 21 ng/L (0-10)
[2021-02-16 12:27] LABS: Alanine Aminotransferase 10 U/L (0-33); Albumin Level 4.2 g/dL (3.5-5.2); Alkaline Phosphatase 70 IU/L (35-105); Anion Gap 18.1 (5-19); Aspartate Amino Transferase 14 U/L (0-32); Blood Urea Nitrogen 8 mg/dL (8-23); Calcium 8.9 mg/dL (8.5-10.5); Carbon Dioxide 24 mmol/L (22-29); Chloride 100 mmol/L (98-107); Glucose 90 mg/dL (65-115); Lipase 13 U/L (13-60); NT Pro B Type Natriuretic Pept 2435 pg/mL (0-450); Osmolality Calculated 284 mOsm/kg (285-295); Potassium 4.1 mmol/L (3.5-5.1); Sodium 138 mmol/L (136-145); Thyroid Stimulating Hormone 3.62 uIU/mL (0.27-4.20); Total Bilirubin 0.6 mg/dL (0.15-1.2); Total Protein 7.2 g/dL (6.6-8.7)
[2021-02-16 12:27] LABS: Urine Appearance Clear (CLEAR); Urine Color Yellow (Yellow)
[2021-02-16 12:28] LABS: Bilirubin Urine Neg (Negative); Blood Urine Neg (Negative); Glucose Urine UA Norm (Normal); Ketones Urine Negative (Negative); Leukocyte Esterase Urine Negative (Negative); Nitrate Urine Negative (Negative); Protein Urine Neg (Negative); Specific Gravity, Urine 1.005 (1.005-1.030); Urobilinogen Urine 4 mg/dL (Negative); pH Urine 7 (5-7)
[2021-02-16 12:30] LABS: Digoxin < 0.3 ng/mL (0.6-1.2)
[2021-02-16] MEDS: iohexol 300 mg/mL 100 mL Btl IV (12:41)
[2021-02-16 12:53] LABS: Lactate (Lactic Acid level) 0.7 mmol/L (0.5-2.2)
--- NOTE | 2021-02-16 13:44 | ECG_ITS ---
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: : 1940 Requested By: Louis Farmer Order Number: [id number] Reading MD: NANCY DAVIS Measurements Intervals [place] Rate: 114 P: [place]: QRS: -75 QRSD: 104 T: 44 QT: 346 QTc: 477 Interpretive Statements ATRIAL FIBRILLATION WITH RAPID VENTRICULAR RESPONSE LEFT ANTERIOR FASCICULAR BLOCK [QRS AXIS <= -45, QR IN I, RS IN II] PROBABLE LATERAL MYOCARDIAL INFARCTION , PROBABLY OLD [35 ms Q WAVE IN I/aVL/V5/V6] Compared to ECG 02/16/2021 12:04:56 Myocardial infarct finding now present Electronically Signed On 02-18-2021 13:00:33 HARP MAKER by NANCY DAVIS [id number]
[2021-02-16] MEDS: metroNIDAZOLE IV 500 MG/100 ML PREMIX 100 MG IV ×2 (14:03→21:35)
[2021-02-16 14:04] LABS: Troponin 5 2HR 20.88 ng/L (0-10)
[2021-02-16] MEDS: ciprofloxacin 400 MG/200 ML PREMIX 200 MG IV (14:04)
[2021-02-16 14:06] LABS: Troponin 5 2HR Delta -0.12 ABS# (0-10)
--- NOTE | 2021-02-16 14:59 | PC.NURSE ---
Attempted to call report to med surg at 1448, placed on hold for 11 minutes with no answer from staff.
--- NOTE | 2021-02-16 15:04 | P.HP_ITS ---
Providers/Chief Complaint Admitting Physician: Rinku Jj Primary Care Provider: Radha Martinez MD Chief Complaint: For week+ have had abd/groin pains History of Present Illness Pleasant 80-year lady came to ER for relation due to several days of abdominal discomfort, poor appetite, general weakness, mucus in stools. Has not been able to eat. Has not been able to take her medications. In ER she is afebrile, without leukocytosis, with atrial fibrillation with RVR, heart rate 108. Blood pressure 159/84, straight 16, saturation 93% on room air. Unremarkable CMP, tro ponin baseline 21, 2-hour 20.88. NT proBNP 2435. UA unremarkable apart from urobilinogen at 4 mg/dL. Digoxin less than 0.3ng/mL. Lactic acid 0.7. Chest x-ray with incidentally noted possible nodule at right base measuring 0.7 cm, recommended nonemergent CT chest to better characterize. Persistent cardiomegaly. CT abdomen pelvis with acute sigmoid diverticulitis, intra- abdominal abscess 1.8 x 1.8 x 1.8 cm. Also noted severe narrowing or occlusion of proximal most celiac artery just beyond the takeoff, there is aneurysmal dilation of circumflex artery measuring up to 1.3 cm. 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 No evidence of rupture. Renal arteries appear severely narrowed proximally. Hepatic contour somewhat nodular suggesting early cirrhosis. Subpleural pulmonary nodule at right base approximately unchanged and measures 3.8 cm (comparison CT 09/09/2019). Cardiomegaly. Review of Systems Const: Reports: change in appetite and fatigue; Denies: fever(s), chills, body aches or malaise Eyes: Denies: change in vision or eye redness ENMT: Denies: throat pain, oral sores or ear or mastoid pain Card: Denies: chest pain, edema, pre-syncope or dyspnea on exertion Resp: Denies: dyspnea, productive cough, change in phlegm color or hemoptysis GI: Reports: bloating and mucus in stool; Denies: abdominal pain, nausea, vomiting, diarrhea, constipation, hematochezia or melena : Denies: flank pain, urinary frequency or hematuria Musc: Denies: back pain, joint swelling or joint redness Skin/Breast: Denies: rash, sores or new lesions Neuro: Denies: headache(s), numbness in extremities, weakness in extremities, dizziness, confusion or seizure-like activity Endo: Denies: polyuria or polydipsia Chito/Lymph: Denies: easy bleeding or purpura All/Imm: Denies: urticaria, throat swelling or tongue swelling Medications/Allergies Home Medications Medication Instructions Recorded Confirmed Last Taken Type apixaban 5 mg tablet 5 mg PO BID 04/06/19 02/16/21 02/15/21 History digoxin 125 mcg (0.125 mg) tablet 125 mcg PO DAILY tab 04/06/19 02/16/21 02/15/21 History furosemide 40 mg tablet 20 mg PO DAILY 04/06/19 02/16/21 02/15/21 History gabapentin 600 mg tablet 600 mg PO TID 04/06/19 02/16/21 02/15/21 History levothyroxine 88 mcg tablet 88 mcg PO DAILY tab 04/06/19 02/16/21 02/15/21 History lisinopril 10 mg tablet 10 mg PO DAILY tab 04/06/19 02/16/21 02/15/21 History loratadine 10 mg tablet 10 mg PO DAILY 04/06/19 02/16/21 02/15/21 History mirabegron 50 mg tablet,extended 50 mg PO Q24H 04/06/19 02/16/21 02/15/21 History release 24 hr tizanidine 2 mg capsule 4 mg PO BID PRN 04/06/19 02/16/21 09/08/19 History alendronate 70 mg PO Q7D 05/11/19 02/16/21 12/01/20 History amlodipine [Norvasc] 10 mg PO DAILY 05/11/19 02/16/21 02/15/21 History cholecalciferol (vitamin D3) 50,000 unit PO Q7D 05/11/19 02/16/21 12/02/20 History duloxetine [Cymbalta] 60 mg PO DAILY 05/11/19 02/16/21 02/15/21 History hydroxyzine pamoate 25 mg PO BEDTIME PRN 05/11/19 02/16/21 09/08/19 History montelukast [Singulair] 10 mg PO DAILY 05/11/19 02/16/21 02/15/21 History pravastatin 20 mg PO DAILY 05/11/19 02/16/21 02/15/21 History trazodone 25 - 50 mg PO BEDTIME PRN 05/11/19 02/16/21 02/15/21 History albuterol sulfate [Ventolin HFA] 2 puff INHALATION Q4H PRN 09/09/19 02/16/21 Unknown History fluticasone propionate [Flonase 1 - 2 spray INTRANASAL DAILY 09/09/19 02/16/21 02/17/20 History Allergy Relief] meloxicam 7.5 mg PO DAILY 09/09/19 02/16/21 02/15/21 History nitroglycerin 0.4 mg SUBLINGUAL Q5M PRN #30 tab 09/09/19 02/16/21 12/04/20 Rx diltiazem HCl 120 mg PO DAILY #30 cap MDD see 02/18/20 02/16/21 02/15/21 Rx pharmacy comment pantoprazole 40 mg PO DAILY 02/18/20 02/16/21 02/15/21 History potassium chloride 20 meq PO 5XD 02/18/20 02/16/21 02/15/21 History sucralfate [Carafate] 10 ml PO BID 02/18/20 02/16/21 02/15/21 History aspirin 81 mg PO DAILY #30 tab 12/05/20 02/16/21 02/15/21 Rx denosumab [Prolia] See Rx Instructions .ROUTE .COMPLEX 12/05/20 02/16/21 Unknown History donepezil 10 mg PO DAILY 12/05/20 02/16/21 02/15/21 History hydrocodone-acetaminophen 1 tab PO Q8H PRN 12/05/20 02/16/21 Unknown History isosorbide mononitrate 30 mg PO DAILY #30 tab 12/05/20 02/16/21 02/15/21 Rx metformin 500 mg PO DAILY 12/05/20 02/16/21 02/15/21 History triamcinolone acetonide 0.1 % See Rx Instructions .ROUTE 12/12/20 02/16/21 Unknown Rx topical cream .COMPLEX #80 g sod.chlorid-potassium chloride 1 tab PO DAILY 02/16/21 02/16/21 02/15/21 History [Thermotabs] Allergies Allergy/AdvReac Type Severity Reaction Status Date / Time No Known Allergies Allergy Verified 02/06/21 09:17 PFSH Acute PFSH: Medical History Acid reflux Afib Anal fissure Chronic back pain Chronic systolic (congestive) heart failure COPD (chronic obstructive pulmonary disease) Essential hypertension Flu-like symptoms Lymphedema of both lower extremities Mixed hyperlipidemia Surgical History History of hysterectomy Family History Sister Stroke CAD (coronary artery disease) [place] @ 75 Hypertension Brother Cancer Father Cancer Social History Second hand smoke exposure: No Smoking risk assessment/counseling performed?: No Alcohol intake: never Desire information about alcohol rehabilitation?: No Counseling given: No Desire information about substance/drug rehabilitation?: No Counseling given: No Adopted: No Caregiver/support person: No Lives independently: Yes Household members: spouse Housing: House Marital status: service: No Current occupational status: retired History of recent travel: No Current gender identity: Female Vitals/I&O/Wt Last Vital Signs Temp 98.5 F 02/16/21 11:18 Pulse 108 H 02/16/21 14:11 Resp 16 02/16/21 14:11 BP 159/84 02/16/21 14:11 Pulse Ox 93 02/16/21 14:11 Weight last 48 hrs Weight 79.379 kg Physical Exam Const: COMMON NORMALS: no acute distress and patient oriented x3 HENMT: COMMON NORMALS: oropharynx normal Neck/C-Spine: COMMON NORMALS: no JVD Resp: COMMON NORMALS: normal respiratory effort and clear to auscultation bilaterally AUSCULTATION: clear to auscultation bilaterally Cardio: COMMON NORMALS: no JVD, regular rhythm, S1 normal heart sound present, S2 normal heart sound present and No murmurs present (Cardio) RHYTHM: regu lar rhythm HEART SOUNDS: S1 normal heart sound present and S2 normal heart sound present GI: COMMON NORMALS: Normal to inspection, nondistended, normoactive bowel sounds present and Soft to palpation PALPATION: Yes Soft to palpation and Yes Tenderness to palpation present (GI) Details: LLQ Extremity: COMMON NORMALS: no joint enlargement and no pedal edema Neuro: COMMON NORMALS: patient oriented x3 and moves all extremities Skin: COMMON NORMALS: no rashes or lesions noted GENERAL SKIN EXAM: no rashes or lesions noted Data : 02/16/21 11:25 02/16/21 11:25 A&P Assessment and plan (1) Acute diverticulitis: Acute complicated sigmoid diverticulitis complicated with intramural abscess, 1.8 x 1.8 x 1.8 cm. Discussed with her and her . No indication for surgery at this time. Indication for trial of medical treatment. Started on Cipro, Flagyl. Continue. No sign of sepsis at this time. Tachycardia secondary to atrial fibrillation. Has not been able to take oral intake, is hungry. Has not been able to take her medications. Hold diuretics. Status: Acute (2) Diverticulitis of large intestine with complication: Trial of conservative medical treatment. If fails may need surgical intervention. Will need early colonoscopy at 4-6 weeks after recovery. 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 Lactic acid is normal. Abdomen tender only focally in the left lower quadrant. At this time not suspecting bowel ischemia, but watch for signs. Continue anticoagulation with atrial fibrillation. Continue aspirin, statin. Imdur. 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 Unchanged from prior. No suggestion of rupture. Status: Acute (5) Atrial fibrillation with RVR: Has been unable to take her medications. Digoxin level is low. We will give a dose of digoxin IV, 0.25 mg. Continue diltiazem. If still unable to take medications, transition to IV. Status: Acute Additional A&P Information GERD COPD Chronic back pain HTN HLD Lipidemia of BL LE Attestations Medical Necessity Statement*: Place in observation for assessment of acute complicated diverticulitis, trial of medical management with inability of oral intake at home, has not been able to take her medications, atrial fibrillation with RVR. Coding Level of Care Code Acute Academy Director for [facility] Diagnoses Acute diverticulitis K57.92 Diverticulitis of large intestine with complication K57.32 Celiac artery stenosis I77.4 Celiac artery aneurysm I72.8 Atrial fibrillation with RVR I48.91
--- NOTE | 2021-02-16 15:15 | PC.NURSE ---
Attempted to call report to med surg again, was placed on hold for 13 minutes with no answer.
[2021-02-16] MEDS: digoxin 250 mcg/ml INJ 2 mL IVP (16:20)
[2021-02-16] MEDS: sucralfate 1 gm/10 mL Oral Liq UDC PO (17:33)
[2021-02-16] MEDS: pantoprazole 40 mg SDV IVP (17:33)
[2021-02-16] MEDS: apixaban 5 mg Tablet PO (17:34)
--- NOTE | 2021-02-16 17:44 | ECG_ITS ---
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: : 1940 Requested By: Louis Farmer Order Number: [id number] Reading MD: NANCY DAVIS Measurements Intervals [place] Rate: 90 P: [place]: QRS: -72 QRSD: 104 T: 34 QT: 368 QTc: 451 Interpretive Statements ATRIAL FIBRILLATION LEFT ANTERIOR FASCICULAR BLOCK [QRS AXIS <= -45, QR IN I, RS IN II] SEPTAL MYOCARDIAL INFARCTION , PROBABLY OLD [40+ ms Q WAVE IN V1/V2] PROBABLE LATERAL MYOCARDIAL INFARCTION , PROBABLY OLD [35 ms Q WAVE IN I/aVL/V5/V6] Compared to ECG 02/16/2021 13:15:04 No significant change Electronically Signed On 02-18-2021 13:00:00 PLANT TECHNICIAN/CONTROL ROOM OPERATOR by NANCY DAVIS [id number]
[2021-02-16 18:07] LABS: Troponin 5 6HR 21.67 ng/L (0-10); Troponin 5 6HR Delta 0.67 ng/L (0-12)
[2021-02-16] MEDS: gabapentin 300 mg Capsule 600 MG PO (20:24)
[2021-02-17] MEDS: ciprofloxacin 400 MG/200 ML PREMIX 200 MG IV ×2 (01:36→15:16)
[2021-02-17 04:00] VITALS: BP 125/85; PULSE 68; RESP 17; TEMP 36.8; O2SAT 96
--- NOTE | 2021-02-17 05:14 | PC.NURSE ---
SHIFT SUMMARY Has rested well tonight. Has not c/ pain. Does have some tenderness in abdomen mostly to the left side. Abd soft. Denies nausea. Is NPO except for ice chips, sips & meds. IV antibiotics given as scheduled. monitoring engineer showing A-fib with CVR
[2021-02-17 05:26] LABS: Basophils % 0.5 %; Eosinophils # 0.3 10^3/uL (0.0-0.8); Hematocrit 41.3 % (37.0-47.0); Hemoglobin 13.2 g/dL (11.5-15.3); Lymphocytes # 1.1 10^3/uL (0.8-4.8); Lymphocytes % 16.4 %; Mean Corpuscular Hemoglobin 30.1 pg (28.0-34.0); Mean Corpuscular Volume 94.3 fl (81-99); Mean Platelet Volume 9.8 fL (7.4-10.4); Monocytes # 0.7 10^3/uL (0.2-0.9); Monocytes % 11.3 %; Neutrophils % 66.6 %; Nucleated Red Blood Cells % 0 %; Platelet Count 157 10^3/cmm (130-400); Red Blood Count 4.38 10^6/uL (4.1-5.3); Red Cell Distribution Width 12.4 % (12.1-15.1); White Blood Count 6.5 10^3/uL (4.0-10.0)
[2021-02-17] MEDS: metroNIDAZOLE IV 500 MG/100 ML PREMIX 100 MG IV ×3 (05:26→20:59)
[2021-02-17 06:08] LABS: Alanine Aminotransferase 7 U/L (0-33); Albumin Level 3.3 g/dL (3.5-5.2); Alkaline Phosphatase 61 IU/L (35-105); Anion Gap 15.1 (5-19); Aspartate Amino Transferase 11 U/L (0-32); Blood Urea Nitrogen 8 mg/dL (8-23); Calcium 7.9 mg/dL (8.5-10.5); Carbon Dioxide 23 mmol/L (22-29); Chloride 104 mmol/L (98-107); Globulin 2.3 g/dL (1.3-4.6); Glucose 82 mg/dL (65-115); Osmolality Calculated 283 mOsm/kg (285-295); Potassium 4.1 mmol/L (3.5-5.1); Sodium 138 mmol/L (136-145); Total Bilirubin 0.5 mg/dL (0.15-1.2); Total Protein 5.6 g/dL (6.6-8.7)
[2021-02-17 07:21] VITALS: BP 145/88; PULSE 87; RESP 18; TEMP 36.7; O2SAT 94
[2021-02-17] MEDS: donepezil 5 MG Tablet 10 MG PO (10:39)
[2021-02-17] MEDS: isosorbide mononitrate ER 30 mg Tablet PO (10:39)
[2021-02-17] MEDS: apixaban 5 mg Tablet PO ×2 (10:39→18:00)
[2021-02-17] MEDS: montelukast sodium 10 mg Tablet PO (10:39)
[2021-02-17] MEDS: dilTIAZem ER (24HR) 120 mg Capsule PO (10:39)
[2021-02-17] MEDS: aspirin 81 mg EC Tablet PO (10:39)
[2021-02-17] MEDS: atorvastatin 40 mg Tablet 20 MG PO (10:40)
[2021-02-17] MEDS: levothyroxine 88 mcg Tablet PO (10:40)
[2021-02-17] MEDS: acetaminophen 325 mg Tablet 650 MG PO (10:40)
[2021-02-17] MEDS: duloxetine 60 mg Capsule PO (10:40)
[2021-02-17] MEDS: pantoprazole 40 mg SDV IVP (10:40)
[2021-02-17] MEDS: fluticasone nasal spray 16gm Btl 1 SPRAY INTRANASAL (10:41)
[2021-02-17 11:50] VITALS: BP 151/87; PULSE 84; RESP 16; TEMP 36.7; O2SAT 91
[2021-02-17 14:00] VITALS: PULSE 122
[2021-02-17 15:12] VITALS: BP 152/78; PULSE 60; RESP 16; O2SAT 93
[2021-02-17] MEDS: ondansetron 2 mg/ML SDV 2 mL 4 MG IVP (15:16)
--- NOTE | 2021-02-17 15:57 | PM.PN ---
Subjective Subjective: Interval history: Was feeling much better this morning, wanting to try some oral intake. Pain better. However, after trying clear liquids having bothersome retching. Vitals/I&O/Wt Last Vital Signs Temp 98.1 F 02/17/21 11:50 Pulse 60 02/17/21 15:12 Resp 16 02/17/21 15:12 BP 152/78 02/17/21 15:12 Pulse Ox 93 02/17/21 15:12 02/17/21 02/17/21 02/17/21 06:59 14:59 22:59 Intake Total 300 / 1200 240 / 240 Output Total 700 / 700 Balance -400 / 500 240 / 240 Weight last 48 hrs Weight 84.55 kg Weight 85.474 kg Weight 79.379 kg Physical Exam Const: COMMON NORMALS: no acute distress and patient oriented x3 HENMT: COMMON NORMALS: oropharynx normal Neck/C-Spine: COMMON NORMALS: no JVD Resp: COMMON NORMALS: normal respiratory effort and clear to auscultation bilaterally AUSCULTATION: clear to auscultation bilaterally Cardio: COMMON NORMALS: no JVD, regular rhythm, S1 normal heart sound present, S2 normal heart sound present and No murmurs present (Cardio) RHYTHM: regular rhythm HEART SOUNDS: S1 normal heart sound present and S2 normal heart sound present GI: COMMON NORMALS: Normal to inspection, nondistended, normoactive bowel sounds present, Soft to palpation and non-tender PALPATION: Yes Soft to palpation Extremity: COMMON NORMALS: no joint enlargement and no pedal edema Neuro: COMMON NORMALS: patient oriented x3 and moves all extremities Skin: COMMON NORMALS: no rashes or lesions noted GENERAL SKIN EXAM: no rashes or lesions noted Data : 02/17/21 05:14 02/17/21 05:14 A&P Assessment and plan (1) Acute diverticulitis: This morning initially doing much better. Nausea resolved. Abdominal tenderness better. Even nontender on exam. However, after trying clear liquids having bothersome retching. For now continue IV antibiotics until can tolerate oral intake. Acute complicated sigmoid diverticulitis complicated with intramural abscess, 1.8 x 1.8 x 1.8 cm. Discussed with her and her . No indication for surgery at this time. Indication for trial of medical treatment. Started on Cipro, Flagyl. Continue. No sign of sepsis at this time. Tachycardia secondary to atrial fibrillation. Has not been able to take oral intake, is hungry. Has not been able to take her medications. Hold diuretics. Status: Acute (2) Diverticulitis of large intestine with complication: Trial of conservative medical treatment. If fails may need surgical intervention. Will need early colonoscopy at 4-6 weeks after recovery. 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 Lactic acid is normal. Abdomen tender only focally in the left lower quadrant. At this time not suspecting bowel ischemia, but watch for signs. Continue anticoagulation with atrial fibrillation. Continue aspirin, statin. Imdur. 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 Unchanged from prior. No suggestion of rupture. Status: Acute (5) Atrial fibrillation with RVR: Improved. Preadmission was unable to take her medications. Digoxin level low. Received digoxin IV, 0.25 mg. Continue dig and diltiazem. If still unable to take medications, transition to IV. Status: Acute Additional A&P Information GERD COPD Chronic back pain HTN HLD Lipidemia of BL LE Attestations Medical Necessity Statement*: Continue hospitalization for management of complicated diverticulitis with intramural abscess, persistent nausea, retching, inability to tolerate oral intake. Coding Level of Care Code Acute Client Service And Consulting Manager for [facility] Diagnoses Acute diverticulitis K57.92 Diverticulitis of large intestine with complication K57.32 Celiac artery stenosis I77.4 Celiac artery aneurysm I72.8 Atrial fibrillation with RVR I48.91
[2021-02-17 20:00] VITALS: BP 164/86; PULSE 100; RESP 16; TEMP 36.8; O2SAT 92
[2021-02-17] MEDS: gabapentin 300 mg Capsule 600 MG PO (20:59)
[2021-02-18] VITALS: BP 113/74; PULSE 74; RESP 16; TEMP 36.5; O2SAT 91
[2021-02-18] MEDS: ciprofloxacin 400 MG/200 ML PREMIX 200 MG IV ×2 (01:34→13:53)
[2021-02-18 04:00] VITALS: BP 137/84; PULSE 64; RESP 16; TEMP 36.8; O2SAT 92
[2021-02-18] MEDS: metroNIDAZOLE IV 500 MG/100 ML PREMIX 100 MG IV ×2 (05:10→13:53)
[2021-02-18 06:03] LABS: Basophils % 0.5 %; Eosinophils # 0.3 10^3/uL (0.0-0.8); Eosinophils % 4.4 %; Hematocrit 40.9 % (37.0-47.0); Hemoglobin 13.2 g/dL (11.5-15.3); Lymphocytes # 0.9 10^3/uL (0.8-4.8); Lymphocytes % 14.7 %; Mean Corpuscular HGB Conc 32.3 g/dL (30.0-36.0); Mean Corpuscular Hemoglobin 29.8 pg (28.0-34.0); Mean Corpuscular Volume 92.3 fl (81-99); Mean Platelet Volume 9.5 fL (7.4-10.4); Monocytes # 0.8 10^3/uL (0.2-0.9); Monocytes % 12.4 %; Neutrophils # 4.11 10^3/uL (1.8-7.7); Neutrophils % 67.7 %; Nucleated Red Blood Cells % 0 %; Platelet Count 163 10^3/cmm (130-400); Red Blood Count 4.43 10^6/uL (4.1-5.3); Red Cell Distribution Width 12.1 % (12.1-15.1); White Blood Count 6.1 10^3/uL (4.0-10.0)
[2021-02-18 06:26] LABS: Alanine Aminotransferase 6 U/L (0-33); Albumin Level 3.3 g/dL (3.5-5.2); Alkaline Phosphatase 62 IU/L (35-105); Anion Gap 11.8 (5-19); Aspartate Amino Transferase 11 U/L (0-32); Blood Urea Nitrogen 10 mg/dL (8-23); Calcium 8.1 mg/dL (8.5-10.5); Carbon Dioxide 27 mmol/L (22-29); Chloride 105 mmol/L (98-107); Globulin 1.9 g/dL (1.3-4.6); Glucose 94 mg/dL (65-115); Osmolality Calculated 289 mOsm/kg (285-295); Potassium 3.8 mmol/L (3.5-5.1); Sodium 140 mmol/L (136-145); Total Bilirubin 0.3 mg/dL (0.15-1.2); Total Protein 5.2 g/dL (6.6-8.7)
[2021-02-18 07:32] VITALS: BP 164/86; PULSE 100; RESP 16; TEMP 37.1; O2SAT 90
[2021-02-18] MEDS: apixaban 5 mg Tablet PO (08:28)
[2021-02-18] MEDS: montelukast sodium 10 mg Tablet PO (08:28)
[2021-02-18] MEDS: donepezil 5 MG Tablet 10 MG PO (08:28)
[2021-02-18] MEDS: sucralfate 1 gm/10 mL Oral Liq UDC PO (08:28)
[2021-02-18] MEDS: aspirin 81 mg EC Tablet PO (08:28)
[2021-02-18] MEDS: isosorbide mononitrate ER 30 mg Tablet PO (08:28)
[2021-02-18] MEDS: levothyroxine 88 mcg Tablet PO (08:29)
[2021-02-18] MEDS: gabapentin 300 mg Capsule 600 MG PO ×2 (08:29→13:53)
[2021-02-18] MEDS: duloxetine 60 mg Capsule PO (08:29)
[2021-02-18] MEDS: atorvastatin 40 mg Tablet 20 MG PO (08:29)
[2021-02-18] MEDS: dilTIAZem ER (24HR) 120 mg Capsule PO (08:30)
[2021-02-18] MEDS: pantoprazole 40 mg SDV IVP (08:30)
--- NOTE | 2021-02-18 10:30 | PC.CHAP ---
Pastoral Care Encounter/Spiritual Assessment Type of Contact [] Declined soil conservation technician visit [] Patient/Family/Request visit [] Outpatient visit [] Follow-up visit [] Physician referral [] Code/Alert [x] Routine visit [] Staff referral [] Actively dying [] Patient sleeping [] Family support [] [] Out of room [] Palliative care [] [] Receiving care in room [] Pre-surgical visit [] Trauma [] Long length of stay [] ICU visit [] Other: Relational/Emotional Strength [x] Patient feels connected with others/family/visitors/staff [] Distress [] Loneliness/isolation [] Abandonment Spirituality of Patient x[] Person of Ashleigh [] Attends Restorationist of their Ashleigh [x] Believes in Prayer [] Reads Bible or Sikhism materials [] There are Spiritual issues to be addressed Warehouse Examiner Interventions [x] Prayer [] Active listening [] Non-anxious presence [] Spiritual/emotional support [] Crisis/trauma care [] Spiritual counseling [] Bereavement support [] Provided bereavement packet [] Provided Bible/devotional materials [] Provided toy/stuffed animal, coloring book to patient or family member [] Provided Communion [] Anointing/[place] [] Salvation [x] Completed spiritual assessment [] Other: Impact on Illness or Injury [] Angry [] Fearful [] Anxious [] Often cries [] Exhaustion [] Unable to work [] Unable to attend bahai [] Unable to walk/stand [] Unable to read [] Unable to drive [] Unable to eat/drink [] Unable to sleep [] Unable to be with family [] Patient intubated [] Other: Summary Time spent with patient 10 min
[2021-02-18] MEDS: acetaminophen 325 mg Tablet 650 MG PO (11:31)
[2021-02-18 11:56] VITALS: BP 132/69; PULSE 83; RESP 18; TEMP 36.7; O2SAT 94
--- NOTE | 2021-02-18 14:23 | P.DS_ITS ---
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 Pleasant 80-year lady came to ER for relation due to several days of abdominal discomfort, poor appetite, general weakness, mucus in stools. Has not been able to eat. Has not been able to take her medications. In ER she is afebrile, without leukocytosis, with atrial fibrillation with RVR, heart rate 108. CT abdomen pelvis with acute sigmoid diverticulitis, intra-abdominal abscess 1.8 x 1.8 x 1.8 cm. Also noted severe narrowing or occlusion of proximal most celiac artery just beyond the takeoff, there is aneurysmal dilation of circumflex artery measuring up to 1.3 cm. 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 No evidence of rupture. Renal arteries appear severely narrowed proximally. Hepatic contour somewhat nodular suggesting early cirrhosis. She was admitted to hospital for further management of acute diverticulitis with intramural abscess. She was not in sepsis on admission. She was started on broad spectrum antibiotics and IV hydration. Diet was gradually advanced and she is able to tolerate CLD for last 24 hrs. Care was discussed with surgical team correction officer reformatory and given the size of abscess it was decided to continue with oral antibiotics and follow up as outpatient with colonoscopy in next 4 weeks. She is being discharged in hemodynamically stable conditions with oral antibiotics for 10 days. Advice to advance diet gradually within next 1 week. Physical Exam Const: COMMON NORMALS: no acute distress and patient oriented x3 HENMT: COMMON NORMALS: oropharynx normal Neck/C-Spine: COMMON NORMALS: no JVD Resp: COMMON NORMALS: normal respiratory effort and clear to auscultation bilaterally AUSCULTATION: clear to auscultation bilaterally Cardio: COMMON NORMALS: no JVD, regular rhythm, S1 normal heart sound present, S2 normal heart sound present and No murmurs present (Cardio) RHYTHM: regular rhythm HEART SOUNDS: S1 normal heart sound present and S2 normal heart sound present GI: COMMON NORMALS: Normal to inspection, nondistended, normoactive bowel sounds present, Soft to palpation and non-tender PALPATION: Yes Soft to palpation Extremity: COMMON NORMALS: no joint enlargement and no pedal edema Neuro: COMMON NORMALS: patient oriented x3 and moves all extremities Skin: COMMON NORMALS: no rashes or lesions noted GENERAL SKIN EXAM: no rashes or lesions noted Discharge Data Data Completed and Pending: Completed Studies During Hospitalization Category Date Time Status CT abdomen pelvis w con* [id number] Urge nt Cat Scan 02/16/21 11:43 Completed XR chest 1V enma ble [id number] Urgent Exams 02/16/21 11:43 Completed Pending at discharge Category Date Time Status Complete Blood Co unt w/Auto AM LABS Lab 02/19/21 04:00 Ordered Comprehensive Met abolic Panel AM LA BS Lab 02/19/21 04:00 Ordered Enteric Bacterial Panel by PCR Rout ine Lab 02/16/21 15:50 Uncollected Labs from last 24 hours 02/18/21 02/18/21 05:50 05:50 WBC 6.1 RBC 4.43 Hgb 13.2 Hct 40.9 MCV 92.3 MCH 29.8 MCHC 32.3 RDW 12.1 Plt Count 163 MPV 9.5 Neut % (Auto) 67.7 Lymph % (Auto) 14.7 [place]ink[place] % (Auto) 12.4 Eos % (Auto) 4.4 Baso % (Auto) 0.5 Neut # (Auto) 4.11 Lymph # (Auto) 0.9 [place] # (Auto) 0.8 Eos # (Auto) 0.3 Baso # (Auto) 0.0 Nucleated RBC % (a uto) 0 Nucleated RBCs # 0.0 Sodium 140 Potassium 3.8 Chloride 105 Carbon Dioxide 27 Anion Gap 11.8 BUN 10 Creatinine 0.8 GFR Calculation Not Reportable Glucose 94 Calculated Osmolal ity 289 Calcium 8.1 L Total Bilirubin 0.3 AST 11 ALT 6 Alkaline Phosphata se 62 Total Protein 5.2 L Albumin 3.3 L Globulin 1.9 Addt'l Data from Hospital Stay: Laboratory Results WBC 6.1 10^3/uL (4.0- 10.0) 02/18/21 05:50 RBC 4.43 10^6/uL (4.1 -5.3) 02/18/21 05:50 Hgb 13.2 g/dL (11.5-1 5.3) 02/18/21 05:50 Hct 40.9 % (37.0-47.0 ) 02/18/21 05:50 MCV 92.3 fl (81-99) 02/18/21 05:50 MCH 29.8 pg (28.0-34. 0) 02/18/21 05:50 MCHC 32.3 g/dL (30.0-3 6.0) 02/18/21 05:50 RDW 12.1 % (12.1-15.1 ) 02/18/21 05:50 Plt Count 163 10^3/cmm (130 -400) 02/18/21 05:50 MPV 9.5 fL (7.4-10.4) 02/18/21 05:50 Neut % (Auto) 67.7 % 02/18/21 05:50 Lymph % (Auto) 14.7 % 02/18/21 05:50 [place] % (Auto) 12.4 % 02/18/21 05:50 Eos % (Auto) 4.4 % 02/18/21 05:50 Baso % (Auto) 0.5 % 02/18/21 05:50 Neut # (Auto) 4.11 10^3/uL (1.8 -7.7) 02/18/21 05:50 Lymph # (Auto) 0.9 10^3/uL (0.8- 4.8) 02/18/21 05:50 [place]ink[place] # (Auto) 0.8 10^3/uL (0.2- 0.9) 02/18/21 05:50 Eos # (Auto) 0.3 10^3/uL (0.0- 0.8) 02/18/21 05:50 Baso # (Auto) 0.0 10^3/uL (0.0- 0.1) 02/18/21 05:50 Nucleated RBC % (a uto) 0 % 02/18/21 05:50 Nucleated RBCs # 0.0 /100WBC 02/18/21 05:50 Sodium 140 mmol/L (136-1 45) 02/18/21 05:50 Potassium 3.8 mmol/L (3.5-5 .1) 02/18/21 05:50 Chloride 105 mmol/L (98-10 7) 02/18/21 05:50 Carbon Dioxide 27 mmol/L (22-29) 02/18/21 05:50 Anion Gap 11.8 (5-19) 02/18/21 05:50 BUN 10 mg/dL (8-23) 02/18/21 05:50 Creatinine 0.8 mg/dL (0.5-0. 9) 02/18/21 05:50 GFR Calculation Not Reportable 02/18/21 05:50 Glucose 94 mg/dL (65-115) 02/18/21 05:50 Calculated Osmolal ity 289 mOsm/kg (285- 295) 02/18/21 05:50 Lactate 0.7 mmol/L (0.5-2 .2) 02/16/21 11:58 Calcium 8.1 mg/dL (8.5-10 .5) L 02/18/21 05:50 Total Bilirubin 0.3 mg/dL (0.15-1 .2) 02/18/21 05:50 AST 11 U/L (0-32) 02/18/21 05:50 ALT 6 U/L (0-33) 02/18/21 05:50 Alkaline Phosphata se 62 IU/L (35-105) 02/18/21 05:50 Troponin T Baselin e 21 ng/L (0-10) H 02/16/21 11:25 Troponin T 120 Min dorita 20.88 ng/L (0-10) H 02/16/21 13:30 Delta Troponin T -0.12 ABS# (0-10) L 02/16/21 13:30 Troponin T Hi Sens 6Hr 21.67 ng/L (0-10) H 02/16/21 17:32 Troponin T Hi Sens 6Hr Delta 0.67 ng/L (0-12) 02/16/21 17:32 NT-Pro-B Natriuret Pep 2435 pg/mL (0-450 ) H 02/16/21 11:25 Total Protein 5.2 g/dL (6.6-8.7 ) L 02/18/21 05:50 Albumin 3.3 g/dL (3.5-5.2 ) L 02/18/21 05:50 Globulin 1.9 g/dL (1.3-4.6 ) 02/18/21 05:50 Lipase 13 U/L (13-60) 02/16/21 11:25 TSH 3.62 uIU/mL (0.27 -4.20) 02/16/21 11:25 Urine Color Yellow (Yellow) 02/16/21 12:05 Urine Appearance Clear (CLEAR) 02/16/21 12:05 Urine pH 7 (5-7) 02/16/21 12:05 Ur Specific Gravit y 1.005 (1.005-1.0 30) 02/16/21 12:05 Urine Protein Neg (Negative) 02/16/21 12:05 Urine Glucose (UA) Norm (Normal) 02/16/21 12:05 Urine Ketones Negative (Negati ve) 02/16/21 12:05 Urine Blood Neg (Negative) 02/16/21 12:05 Urine Nitrate Negative (Negati ve) 02/16/21 12:05 Urine Bilirubin Neg (Negative) 02/16/21 12:05 Urine Urobilinogen 4 mg/dL (Negative ) H 02/16/21 12:05 Ur Leukocyte Vale ase Negative (Negati ve) 02/16/21 12:05 Digoxin < 0.3 ng/mL (0.6- 1.2) L 02/16/21 11:25 Impressions Abdomen/Pelvis CT 02/16/21 11:43 IMPRESSION: 1. Findings compatible with acute sigmoid diverticulitis with intramural abscess. There is surrounding edema and mild free fluid. No bekah perforation is seen. 2. 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 There is no evidence of rupture. 3. The renal arteries appears severely narrowed proximally. 4. The hepatic contour is somewhat nodular suggesting early cirrhosis. Correlate with liver function tests. 5. A subpleural pulmonary nodule at the right base is approximately unchanged and measures 3.8 mm. As per Fleischner Society 2017 guidelines for follow-up and management of pulmonary nodules: For patients at low risk (minimal or absent history of smoking and of other known risk factors), no routine follow-up. For patient at high risk (history of smoking or of other known risk factors), recommend optional CT at 12 months. 6. Cardiomegaly. Radiation Dose CTDIVOL = (mGy): DLP = 1451.75 (mGy-cm) ADDENDUM: 02/16/21 1312 Findings discussed with Louis Farmer at 02/16/2021 1:10 PM FORECLOSURE HOME INSPECTOR. Radiation Dose CTDIVOL = (mGy): DLP = 1451.75 (mGy-cm) Chest X-Ray 02/16/21 11:43 IMPRESSION: 1. Possible nodule at the right base measuring 0.[address] chest to better characterize. 2. Persistent cardiomegaly. Radiation Dose CTDIVOL = (mGy): DLP = (mGy-cm) Vitals: Last Vital Signs Temp 98.1 F 02/18/21 11:56 Pulse 83 02/18/21 11:56 Resp 18 02/18/21 11:56 BP 132/69 02/18/21 11:56 Pulse Ox 94 02/18/21 11:56 Discharge Plan Discharge Patient Disposition: Home Condition: Stable Prescriptions: New Cipro 500 mg tablet 500 mg PO BID 10 Days Qty: 20 RF: 0 Flagyl 500 mg tablet 500 mg PO Q8H 10 Days Qty: 30 RF: 0 Continued lisinopril 10 mg tablet 10 mg PO DAILY RF: 0 levothyroxine 88 mcg tablet 88 mcg PO DAILY RF: 0 digoxin 125 mcg (0.125 mg) tablet 125 mcg PO DAILY RF: 0 Eliquis 5 mg tablet 5 mg PO BID RF: 0 furosemide 40 mg tablet 20 mg PO DAILY RF: 0 gabapentin 600 mg tablet 600 mg PO TID RF: 0 loratadine 10 mg tablet 10 mg PO DAILY RF: 0 Myrbetriq 50 mg tablet extended release 24 hr 50 mg PO Q24H RF: 0 triamcinolone acetonide 0.1 % cream See Rx Instructions .ROUTE .COMPLEX Qty: 80 RF: 0 trazodone 50 mg Tablet 25 - 50 mg PO BEDTIME PRN (Reason: Sleep) RF: 0 alendronate 70 mg tablet 70 mg PO Q7D RF: 0 amlodipine [Norvasc] 10 mg Tablet 10 mg PO DAILY RF: 0 montelukast [Singulair] 10 mg Tablet 10 mg PO DAILY RF: 0 pravastatin 20 mg Tablet 20 mg PO DAILY RF: 0 hydroxyzine pamoate 25 mg Capsule 25 mg PO BEDTIME PRN (Reason: unknown) RF: 0 duloxetine [Cymbalta] 60 mg Capsule,Delayed Release(Dr/Ec) 60 mg PO DAILY RF: 0 cholecalciferol (vitamin D3) 1,250 mcg (50,000 unit) capsule 50,000 unit PO Q7D RF: 0 hydrocodone-acetaminophen 10-325 mg tablet 1 tab PO Q8H PRN (Reason: Pain) RF: 0 donepezil 10 mg tablet 10 mg PO DAILY RF: 0 metformin 500 mg tablet extended release 24 hr 500 mg PO DAILY RF: 0 Prolia 60 mg/mL syringe See Rx Instructions .ROUTE .COMPLEX RF: 0 isosorbide mononitrate 30 mg tablet extended release 24 hr 30 mg PO DAILY Qty: 30 RF: 0 aspirin 81 mg tablet,delayed release (DR/EC) 81 mg PO DAILY Qty: 30 RF: 0 Thermotabs 287-180-15 mg Tablet 1 tab PO DAILY RF: 0 albuterol sulfate [Ventolin HFA] 90 mcg/actuation Hfa Aerosol Inhaler 2 puff INHALATION Q4H PRN (Reason: Shortness Of Breath) RF: 0 fluticasone propionate [Flonase Allergy Relief] 50 mcg/actuation [place],Suspension 1 - 2 spray INTRANASAL DAILY RF: 0 nitroglycerin 0.4 mg tablet, sublingual 0.4 mg SUBLINGUAL Q5M PRN (Reason: chest pain) Qty: 30 RF: 0 sucralfate [Carafate] 100 mg/mL Suspension 10 ml PO BID RF: 0 pantoprazole 40 mg Tablet,Delayed Release (Dr/Ec) 40 mg PO DAILY RF: 0 potassium chloride 20 mEq Tablet Extended Release 20 meq PO 5XD RF: 0 diltiazem HCl 120 mg capsule,extended release 24 hr 120 mg PO DAILY MDD see pharmacy comment Qty: 30 RF: 0 Held tizanidine 2 mg capsule 4 mg PO BID PRN (Reason: Spasms) RF: 0 Hold Instructions: Resume on 02/27/21. Discontinued meloxicam 7.5 mg tablet 7.5 mg PO DAILY RF: 0 Discharge Orders: Discharge Order (Routine); Ordered 02/18/21 Ordered By: Haider Barcenas Referrals: Roger Moreno MD [Physician] - 2 weeks (Colonoscopy 4-6 weeks) Radha Martinez MD [Primary Care Provider] - 4-7 days (Please contact their office on Thursday to schedule your appointent) Discharge Diet: Advance as tolerated and Full LIquid Discharge Activity: Increase activity as tolerated Patient Instructions: Ciprofloxacin (By mouth), Metronidazole (By mouth), Diverticulitis (GEN), Pulmonary Nodules (GEN), Opioid Safety Activity Restrictions/Additional Instructions: Continue with full liquid and advance to BRAT diet/ mechanical soft diet within next 4 to 5 days. Please take multiple small meals. Please continue antibiotics for treatment of complicated diverticulitis with abscess of the large intestine wall, 1.8 x 1.8 x 1.8 cm. Please follow-up with your primary doctor for reassessment, discuss your condition and consideration whether antibiotics need to be extended further. Please follow-up with surgery in office to set up for an early colonoscopy at 4- 6 weeks due to complicated diverticulitis. Please discuss with your primary doctor regarding celiac artery (blood vessel that supplies blood to your intestine) narrowing and also small dissection. Discussed follow-up. Discussed consideration of referral to vascular surgery. Please also discuss incidentally seen severely narrowed renal arteries on the contrast CT of the abdomen. Please also discuss that the liver appears nodular suggesting possibility of early cirrhosis. Possible nodule at the right base measuring 0.7 cm. This was seen on CT abdomen, measuring 3.8 mm. Please discuss with your primary doctor of whether to seek reassessment in 12 months. Discharge Attestations Time Spent in Discharge Care*: greater than 30 min Specific Discharge Activities: educating patient, discussing with pcp/other providers, discussing with carpenter labor supervisor/social workers/dc planners, documenting/other paperwork and evaluating patient/reviewing data Status at Discharge: Cognitive status at discharge: cognitively intact , Behavioral status at discharge: cooperative , Functional status at discharge: independent ambulation Overall status at discharge: patient is progressing back to baseline Quality Metrics Clinical Quality Measures During this hospital stay, did patient experience: None Coding Level of Care Code Acute Chg FW DC note Exam Comprehensive Diagnoses Acute diverticulitis K57.92 Diverticulitis of large intestine with complication K57.32 Celiac artery stenosis I77.4 Celiac artery aneurysm I72.8 Atrial fibrillation with RVR I48.91
--- NOTE | 2021-02-18 16:03 | PC.NURSE ---
discharge instructions given to patient and family. both verbalized understanding if instructions. follow up appointments made. patient taken to private vehicle via wheelchair by staff and assisted into vehicle.
[2021-02-18 16:16] VITALS: BP 132/69; PULSE 83; RESP 18; TEMP 36.7; O2SAT 94
--- NOTE | 2021-02-20 11:18 | PC.SOCIAL ---
Ivon From [facility] called this am about interaction with Cipro an Tizanidine. Notified Ivon that the Tizanidine is on hold until 02/27/2021 which would be completion of Cipro and was on dc instructions. Ivon indicates they did find out later and patient does know not to follow the instructions to hold Tizanidine until date indicated and completion of Cipro. No further action required on this end.
== END 2021-02-18 16:17 | disposition home or self-care (01) ==
LOC: ER 14:00 → MEDSURG 14:39
PROVIDERS: Admitting Provider Internal Medicine; Emergency Provider Emergency Medicine; PCP Family Medicine; Visit Provider Student in an Organized Health Care Education/Training Program
DX: K57.92 Diverticulitis of intestine, part unspecified, without perforation or abscess without bleeding (principal); K57.32 Diverticulitis of large intestine without perforation or abscess without bleeding; I77.74 Dissection of vertebral artery; I72.8 Aneurysm of other specified arteries; I48.91 Unspecified atrial fibrillation; K21.9 Gastro-esophageal reflux disease without esophagitis; J44.9 Chronic obstructive pulmonary disease, unspecified; I10 Essential (primary) hypertension; E78.5 Hyperlipidemia, unspecified; Z79.01 Long term (current) use of anticoagulants
CPT/HCPCS: 36415; 71045; 74177; 80053; 80162; 81003; 83605; 83690; 83880; 84443; 84484; 85025; 93005; 96365; 96367; 96375; 96376; 99285; C9113; G0378; J0744; J1160; J2270; J2405; J7040; Q9967; S0030

== ENCOUNTER 2021-03-10 15:15 | Emergency (ER) | payer MEDICARE, MEDICAID, SELFPAY ==
[2021-03-10 15:29] VITALS: BP 135/91; PULSE 76; RESP 20; TEMP 36.6; O2SAT 95; BMI 27.3
--- NOTE | 2021-03-10 15:36 | XRR_ITS ---
PROCEDURE INFORMATION: Exam: XR Chest Exam date and time: 03/10/2021 3:36 PM Age: 80 years old Clinical indication: Shortness of breath; Additional info: Cp TECHNIQUE: Imaging protocol: XR of the chest. Views: 1 view. COMPARISON: CR (CHEST, ) 02/16/2021 12:14 PM FINDINGS: Lungs: Lungs are clear. Pleural spaces: There is no pleural effusion or pneumothorax. Heart/Mediastinum: There is mild enlargement of the cardiac silhouette. Bones/joints: Bones are unremarkable. XR/XR chest 1V portable [id number] IMPRESSION: No acute findings.
--- NOTE | 2021-03-10 17:28 | PC.NURSE ---
this nurse escorted pt back to ED room to be seen by ED physician. Pt helped into a gown. Pt states to this nurse, do I have to be here and do this? I am ready to go home . Pt got dressed and left. NO AMA paperwork signed
--- NOTE | 2021-03-10 17:33 | ED_ITS ---
HPI - Chest Pain General: Chief Complaint: Chest Pain Stated Complaint: CHEST PAIN/HIGH BP Time Seen by Provider: 03/10/21 17:22 History of Present Illness: HPI narrative: Patient left the emergency room prior to seen by an emergency physician. [facility] ED PFSH: Medical History Anal fissure Atrial fibrillation with RVR Chronic back pain Chronic systolic (congestive) heart failure COPD (chronic obstructive pulmonary disease) Essential hypertension Lymphedema of both lower extremities Mixed hyperlipidemia Surgical History History of bladder surgery History of colonoscopy years ago History of hysterectomy Family History Sister Stroke CAD (coronary artery disease) [place] @ 75 Hypertension Brother Cancer Father Cancer Social History Second hand smoke exposure: No Smoking risk assessment/counseling performed?: No Alcohol intake: never Desire information about alcohol rehabilitation?: No Counseling given: No Desire information about substance/drug rehabilitation?: No Counseling given: No Adopted: No Caregiver/support person: No Lives independently: Yes Household members: spouse Housing: House Marital status: service: No Current occupational status: retired History of recent travel: No Current gender identity: Female Course Vital Signs: Vital signs: Vital Signs Temperature 97.9 F 03/10/21 15:29 Pulse Rate 76 03/10/21 15:29 Respiratory Rate 20 H 03/10/21 15:29 Blood Pressure 135/91 03/10/21 15:29 Pulse Oximetry 95 03/10/21 15:29 Discharge Plan Discharge Prescriptions: No Action neomycin-polymyxin B-dexameth [Maxitrol] 3.5mg/mL-10,000 unit/mL-0.1 % drops,suspension 2 drp ophthalmic (eye) Q2H Qty: 5 RF: 0 lisinopril 10 mg tablet 10 mg PO DAILY RF: 0 levothyroxine 88 mcg tablet 88 mcg PO DAILY RF: 0 digoxin 125 mcg (0.125 mg) tablet 125 mcg PO DAILY RF: 0 Eliquis 5 mg tablet 5 mg PO BID RF: 0 furosemide 40 mg tablet 20 mg PO DAILY RF: 0 gabapentin 600 mg tablet 600 mg PO TID RF: 0 loratadine 10 mg tablet 10 mg PO DAILY RF: 0 Myrbetriq 50 mg tablet extended release 24 hr 50 mg PO Q24H RF: 0 tizanidine 2 mg capsule 4 mg PO BID PRN (Reason: Spasms) RF: 0 Hold Instructions: Resume on 02/27/21. ciprofloxacin HCl [Cipro] 500 mg tablet 500 mg PO BID RF: 0 metronidazole [Flagyl] 500 mg tablet 500 mg PO BID RF: 0 triamcinolone acetonide 0.1 % cream See Rx Instructions .ROUTE .COMPLEX Qty: 80 RF: 0 trazodone 50 mg Tablet 25 - 50 mg PO BEDTIME PRN (Reason: Sleep) RF: 0 alendronate 70 mg tablet 70 mg PO Q7D RF: 0 amlodipine [Norvasc] 10 mg Tablet 10 mg PO DAILY RF: 0 montelukast [Singulair] 10 mg Tablet 10 mg PO DAILY RF: 0 pravastatin 20 mg Tablet 20 mg PO DAILY RF: 0 hydroxyzine pamoate 25 mg Capsule 25 mg PO BEDTIME PRN (Reason: unknown) RF: 0 duloxetine [Cymbalta] 60 mg Capsule,Delayed Release(Dr/Ec) 60 mg PO DAILY RF: 0 cholecalciferol (vitamin D3) 1,250 mcg (50,000 unit) capsule 50,000 unit PO Q7D RF: 0 hydrocodone-acetaminophen 10-325 mg tablet 1 tab PO Q8H PRN (Reason: Pain) RF: 0 donepezil 10 mg tablet 10 mg PO DAILY RF: 0 metformin 500 mg tablet extended release 24 hr 500 mg PO DAILY RF: 0 Prolia 60 mg/mL syringe See Rx Instructions .ROUTE .COMPLEX RF: 0 isosorbide mononitrate 30 mg tablet extended release 24 hr 30 mg PO DAILY Qty: 30 RF: 0 aspirin 81 mg tablet,delayed release (DR/EC) 81 mg PO DAILY Qty: 30 RF: 0 Thermotabs 287-180-15 mg Tablet 1 tab PO DAILY RF: 0 albuterol sulfate [Ventolin HFA] 90 mcg/actuation Hfa Aerosol Inhaler 2 puff INHALATION Q4H PRN (Reason: Shortness Of Breath) RF: 0 fluticasone propionate [Flonase Allergy Relief] 50 mcg/actuation [place],Suspension 1 - 2 spray INTRANASAL DAILY RF: 0 nitroglycerin 0.4 mg tablet, sublingual 0.4 mg SUBLINGUAL Q5M PRN (Reason: chest pain) Qty: 30 RF: 0 sucralfate [Carafate] 100 mg/mL Suspension 10 ml PO BID RF: 0 pantoprazole 40 mg Tablet,Delayed Release (Dr/Ec) 40 mg PO DAILY RF: 0 potassium chloride 20 mEq Tablet Extended Release 20 meq PO 5XD RF: 0 diltiazem HCl 120 mg capsule,extended release 24 hr 120 mg PO DAILY MDD see pharmacy comment Qty: 30 RF: 0 Coding Level of Care Code ED Rafter Cutting Machine Operator for Haileyg Fwzoie
== END 2021-03-10 17:35 | disposition left against medical advice (07) ==
PROVIDERS: Emergency Provider Emergency Medicine; PCP Family Medicine
DX: R07.9 Chest pain, unspecified (principal); Z79.01 Long term (current) use of anticoagulants; Z79.84 Long term (current) use of oral hypoglycemic drugs; Z79.82 Long term (current) use of aspirin; J44.9 Chronic obstructive pulmonary disease, unspecified; I11.0 Hypertensive heart disease with heart failure; I50.20 Unspecified systolic (congestive) heart failure; E78.2 Mixed hyperlipidemia
CPT/HCPCS: 71045; 99282

== ENCOUNTER 2021-05-04 10:25 | Emergency (ER) | payer MEDICARE, MEDICAID, SELFPAY ==
[2021-05-04] VITALS (8 sets, daily range): BP systolic 122–159; BP diastolic 69–109; PULSE 78–108; RESP 15–18; TEMP 37.4; O2SAT 92–96; BMI 26.6
--- NOTE | 2021-05-04 10:37 | XRR_ITS ---
PROCEDURE INFORMATION: Exam: XR Chest Exam date and time: 05/04/2021 10:37 AM Age: 80 years old Clinical indication: Fever TECHNIQUE: Imaging protocol: XR of the chest. Views: 1 view. COMPARISON: CR XR chest 1V portable [id number] 03/10/2021 4:36 PM FINDINGS: Lungs: Unremarkable. No consolidation. Pleural spaces: Unremarkable. No pleural effusion. No pneumothorax. Heart/Mediastinum: Stable mild enlargement of the cardiac silhouette. Bones/joints: Unremarkable. XR/XR chest 1V portable [id number] IMPRESSION: No acute findings.
--- NOTE | 2021-05-04 10:37 | ECG_ITS ---
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 Measurements Intervals [place] Rate: 101 P: OK: QRS: -80 QRSD: 94 T: 48 QT: 349 QTc: 453 Interpretive Statements ATRIAL FIBRILLATION WITH RAPID VENTRICULAR RESPONSE PATTERN CONSISTENT WITH PULMONARY DISEASE LEFT ANTERIOR FASCICULAR BLOCK [QRS AXIS <= -45, QR IN I, RS IN II] Compared to ECG 02/16/2021 18:33:15 Myocardial infarct finding no longer present Electronically Signed On 05-06-2021 8:54:11 STEEL FITTER by Tremayne Hermosillo M.D. [id number]
--- NOTE | 2021-05-04 10:39 | W.ED.GENADLT ---
HPI - General Adult General: Chief complaint: COVID symptoms Stated complaint: [place], not feeling well Time Seen by Provider: 05/04/21 10:37 History of Present Illness: Patient is a 80-year-old female with a history of atrial fibrillation on Eliquis, CKD, COPD, hypertension who presents emergency room for evaluation of fever and chills and cough x2 days. Per patient's , patient has been feeling increasingly weak and has had decreased appetite for the last 2 days. Patient also report an intermittent fever and cough. Patient denies any diarrhea, nausea/vomiting or urinary complaints, melena/hematochezia. 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 Onset: 2 days ago Duration: ongoing Location:home Severity:moderate Associated symptoms: Reports malaise; Deny chest pain, dyspnea, nausea, rash, palpitations or vomiting Review of Systems Const: Reports: fever(s), chills, body aches, fatigue and malaise Eyes: Denies: change in vision ENMT: Reports: other (+cough); Denies: mouth pain Card: Denies: chest pain or palpitations Resp: Denies: dyspnea or non-productive cough GI: Denies: abdominal pain, nausea, vomiting or diarrhea : Denies: dysuria Musc: Denies: extremity pain Skin/Breast: Denies: rash or new lesions Neuro: Denies: weakness in extremities Psych: Reports: other (Normal mood) [place]/Lymph: Denies: easy bruising PFS ED PFSH: Medical History (Updated 05/04/21 @ 13:44 by Fabiano Porter MD) Anal fissure Atrial fibrillation with RVR Chronic back pain Chronic systolic (congestive) heart failure COPD (chronic obstructive pulmonary disease) COVID Essential hypertension Lymphedema of both lower extremities Mixed hyperlipidemia Surgical History History of bladder surgery History of colonoscopy years ago History of hysterectomy Family History Sister Stroke CAD (coronary artery disease) [place] @ 75 Hypertension Brother Cancer Father Cancer Social History Second hand smoke exposure: No Smoking risk assessment/counseling performed?: No Alcohol intake: never Desire information about alcohol rehabilitation?: No Counseling given: No Desire information about substance/drug rehabilitation?: No Counseling given: No Adopted: No Caregiver/support person: No Lives independently: Yes Household members: spouse Housing: House Marital status: service: No Current occupational status: retired History of recent travel: No Current gender identity: Female Physical Exam Const: COMMON NORMALS: alert HENMT: COMMON NORMALS: atraumatic HEAD & SCALP: atraumatic MOUTH: moist mucous membranes not abnormal Eye: COMMON NORMALS: EOMs intact bilaterally and conjunctivae normal CONJUNCTIVA: Yes conjunctivae normal Neck/C-Spine: COMMON NORMALS: full ROM and supple Resp: COMMON NORMALS: normal respiratory effort and clear to auscultation bilaterally AUSCULTATION: clear to auscultation bilaterally Cardio: COMMON NORMALS: regular rate RATE: regular rate GI: COMMON NORMALS: Soft to palpation and non-tender PALPATION: Yes Soft to palpation Extremity: COMMON NORMALS: full ROM Neuro: SENSORIUM/ORIENTATION: Yes alert MOTOR EXAM: No Abnormal motor strength present and Other motor observations present (no focal motor deficits) Psych: COMMON NORMALS: speech normal SPEECH: Yes normal speech MOOD & AFFECT: Yes euthymic mood Course Vital Signs: Vital signs: Vital Signs Temperature 99.4 F 05/04/21 10:38 Pulse Rate 94 05/04/21 10:38 Respiratory Rate 15 05/04/21 10:38 Blood Pressure 144/109 05/04/21 10:38 Pulse Oximetry 93 05/04/21 11:09 MDM - General Adult Medical Decision Making []yo patient presenting to the ED with shortness of breath, cough, and malaise concerning for pneumonia with findings of fever, decreased/junky breath sounds, and tachypnea. Workup today includes XR chest Defer lab work at this time given that the patient is well appearing with stable vital signs and without recent hospitalization or care facility stay. Given History, Exam, and Workup presentation most consistent with pneumonia.Presentation not consistent with PE, COPD exacerbation, Pneumothorax, TB, Atypical ACS, Esophageal Rupture, Toxic Exposure, Foreign Body Airway Obstruction. [If NOT BAM candidate + discharge Workup: CXR Chest, COVID antigen/ COVID PCR send out Intervention: Tylenol 1gram, PO challenge, serial reassessment, oxygen [time] On reassessment, [] XR findings of ground-glass opacity. Covid test [] today. Findings consistent with viral pneumonia, suspected COVID. Afebrile currently. Patient continues to be in no respiratory distress with sats sats > 95% without requirements of oxygen in the emergency department. At this time new is not a candidate for BAM since patient does NOT meet any of the following criteria for EUA of MCA. COVID+, symptom < 10 days, weight > 88lbs, age >12, NOT requiring additional oxygen compared to baseline AND EUA criteria for BAM: 1. any medical condition or other factor (including race, ethnicity, social/health care access inequality that puts patient at high risk for progression of disease), 2. obesity (BMI > 25), 3. , 4. CKD, 5. DM, 6. Immunocompromise, 7. cardiovascular disease/HTN, 8. Chronic lung disease, 9. SCD, 10. Neurodevelopmental disorder, 11. Chronic medical-related technological dependence (trach/g-tube/home CPAP), disability, and age >= 65. I have discussed the workup today with patient who agrees to go home with serial observation. I have give patient strict return precautions for any worsening symptoms including worsening dyspnea, exertional dyspnea, cough, chest pain, dehydration, or any other concerns that patient may have. Disposition: Discharge. Patient is given strict follow up with PCP in 24-48 hrs for reassessment. Patient agrees with everything discussed today. ] [If BAM candidate +discharge Workup: CXR Chest, COVID antigen/ COVID PCR send out Intervention: Tylenol 1gram, PO challenge, serial reassessment, oxygen [time] On reassessment, [] XR findings of ground-glass opacity. Covid test [] today. Findings consistent with viral pneumonia, suspected COVID. Afebrile currently. Patient continues to be in no respiratory distress with sats sats > 95% without requirements of oxygen in the emergency department. I have offered patient monoclonal antibody (MCA) infusion since patient fulfills the following criteria: COVID+, symptom < 10 days, weight > 88lbs, age >12, NOT requiring additional oxygen compared to baseline. In addition, patient has met one or more of the following criteria including following for EUA of BAM: 1. any medical condition or other factor (including race, ethnicity, social/health care access inequality that puts patient at high risk for progression of disease), 2. obesity (BMI > 25), 3. , 4. CKD, 5. DM, 6. Immunocompromise, 7. cardiovascular disease/HTN, 8. Chronic lung disease, 9. SCD, 10. Neurodevelopmental disorder, 11. Chronic medical-related technological dependence (trach/g-tube/home CPAP), disability, and age >= 65. I have discussed with patient the risks, benefits, and alternatives of obtaining MCA infusion from the MCA consent sheets in detail, and patient agrees with plan for infusion. Patient verbalizes understandings of the risks and alternatives to obtaining BAM today. Please refer to consent sheet for BAM treatment. [place] needs to fill consent form if planning outpatient BAM, order request for MCA in OTHER AMBULATORY ORDER of discharge portion if giving in the ED, will need documented positive covid if after hour, call [phone] to arrange transfusion DILMA in the AM for BAM Disposition: BAM infusion and discharge home. I have given patient strict return precautions for any complications relating to BAM therapy ] [If planning to send home with oxygen after discussion Workup: CXR Chest, COVID antigen/ COVID PCR send out Intervention: Tylenol 1gram, PO challenge, serial reassessment, oxygen, []decadron, []remdesivir [time] On reassessment, [] XR findings of ground-glass opacity. Findings consistent with COVID. Afebrile currently. Patient continues to sat at []% on _ oxygen. Given concerns for possible respiratory decompensation, I have offered patient admission for serial/close observation in the emergency room. At [], patient declined admission citing strong desire to go home on home oxygen. I have discussed the risks of leaving hospital today including risks of sudden pulmonary decompensation leading to severe respiratory distress and even . Patient verbalizes understanding the consequence of the risks of leaving the hospital today and alternative including staying for serial observation. Given patient's strong desire to go home, I have offered patient outpatient oxygen tank/supply and portable pulse ox with proper instruction to use at home. Patient agrees to monitor oxygen saturation and to come back to the ED if there is any drops in pulse ox reading despite oxygen use. In addition, I have given patient strict follow up with PCP in 24 hrs for reevalutaion. Patient verbalizes understanding of all components of our discussion today and reassures me of follow up with PCP and close monitoring. Call patient's PCP for follow up in 24-48 hrs. AMA? CUCA: oxygen, give patient portable pulse ox Disposition: Discharge. Patient is given strict return precautions for any worsening dypsnea, changes in pulse ox numbers, any worsening fatigue, dehydration, generalized weakness, altered mental status, or any new or concerning issues. ] [If admitting for observation Workup: XR Chest, COVID PCR Intervention: Tylenol 1gram, PO challenge, serial reassessment, oxygen, []remdesivir, []decadron [time] On reassessment, XR findings of ground-glass opacity. Covid test [] today. Findings consistent with viral pneumonia, suspected COVID. Clinically, fever improved with tylenol. Patient continues to be in moderate respiratory distress with increased work of breathing and tachypnea. O2 sats > 95% on [] while observed in the ED. Multiple comorbidities along with no significant improvement in the ED indicates the patient is a candidate for inpatient admission. I have offered admission and the patient agrees with the plan. Patient continues to AAOx3, without significant increased work of breathing and I do not suspect the patient will decompensate on the wards requiring invasive and non-invasive positive pressure ventilation. Disposition: Admission. ] Lab Data : 05/04/21 11:35 05/04/21 11:35 Radiology Impressions Chest X-Ray 05/04/21 10:37 IMPRESSION: No acute findings. Laboratory Results WBC 4.0 10^3/uL (4.0-10.0) 05/04/21 11:35 RBC 4.96 10^6/uL (4.1-5.3) 05/04/21 11:35 Hgb 14.7 g/dL (11.5-15.3) 05/04/21 11:35 Hct 45.2 % (37.0-47.0) 05/04/21 11:35 MCV 91.1 fl (81-99) 05/04/21 11:35 MCH 29.6 pg (28.0-34.0) 05/04/21 11:35 MCHC 32.5 g/dL (30.0-36.0) 05/04/21 11:35 RDW 12.9 % (12.1-15.1) 05/04/21 11:35 Plt Count 181 10^3/cmm (130-400) 05/04/21 11:35 MPV 9.9 fL (7.4-10.4) 05/04/21 11:35 Neut % (Auto) 66.9 % 05/04/21 11:35 Lymph % (Auto) 13.1 % 05/04/21 11:35 [place] % (Auto) 19.1 % 05/04/21 11:35 Eos % (Auto) 0.2 % 05/04/21 11:35 Baso % (Auto) 0.5 % 05/04/21 11:35 Neut # (Auto) 2.70 10^3/uL (1.8-7.7) 05/04/21 11:35 Lymph # (Auto) 0.5 10^3/uL (0.8-4.8) L 05/04/21 11:35 Rush # (Auto) 0.8 10^3/uL (0.2-0.9) 05/04/21 11:35 Eos # (Auto) 0.0 10^3/uL (0.0-0.8) 05/04/21 11:35 Baso # (Auto) 0.0 10^3/uL (0.0-0.1) 05/04/21 11:35 Nucleated RBC % (auto) 0 % 05/04/21 11:35 Nucleated RBCs # 0.0 /100WBC 05/04/21 11:35 Sodium 139 mmol/L (136-145) 05/04/21 11:35 Potassium 3.8 mmol/L (3.5-5.1) 05/04/21 11:35 Chloride 100 mmol/L (98-107) 05/04/21 11:35 Carbon Dioxide 25 mmol/L (22-29) 05/04/21 11:35 Anion Gap 17.8 (5-19) 05/04/21 11:35 BUN 8 mg/dL (8-23) 05/04/21 11:35 Creatinine 0.8 mg/dL (0.5-0.9) 05/04/21 11:35 GFR Calculation Not Reportable 05/04/21 11:35 Glucose 99 mg/dL (65-115) 05/04/21 11:35 Calculated Osmolality 286 mOsm/kg (285-295) 05/04/21 11:35 Calcium 8.6 mg/dL (8.5-10.5) 05/04/21 11:35 Total Bilirubin 0.3 mg/dL (0.15-1.2) 05/04/21 11:35 AST 28 U/L (0-32) 05/04/21 11:35 ALT 19 U/L (0-33) 05/04/21 11:35 Alkaline Phosphatase 64 IU/L (35-105) 05/04/21 11:35 Troponin T Baseline 22 ng/L (0-10) H 05/04/21 11:35 Troponin T 120 Minute 20.27 ng/L (0-10) H 05/04/21 13:20 Delta Troponin T -1.73 ABS# (0-10) L 05/04/21 13:20 Total Protein 6.5 g/dL (6.6-8.7) L 05/04/21 11:35 Albumin 4.6 g/dL (3.5-5.2) 05/04/21 11:35 Globulin 1.9 g/dL (1.3-4.6) 05/04/21 11:35 Lipase 24 U/L (13-60) 05/04/21 11:35 Urine Color Straw (Yellow) 05/04/21 12:22 Urine Appearance Clear (CLEAR) 05/04/21 12:22 Urine pH 7 (5-7) 05/04/21 12:22 Ur Specific [place] 1.010 (1.005-1.030) 05/04/21 12:22 Urine Protein Neg (Negative) 05/04/21 12:22 Urine Glucose (UA) Norm (Normal) 05/04/21 12:22 Urine Ketones Negative (Negative) 05/04/21 12:22 Urine Blood Neg (Negative) 05/04/21: Urine Nitrate Negative (Negative) 05/04/21 12: Urine Bilirubin Neg (Negative) 05/04/21 12:22 Urine Urobilinogen Norm mg/dL (Negative) 05/04/21 12:22 Ur Leukocyte Esterase Trace (Negative) H 05/04/21 12:22 Urine RBC None /hpf (0-2) 05/04/21 12:22 Urine WBC 0-4 /hpf (0-5) H 05/04/21 12:22 Ur Squamous Epith Cells 0-4 /hpf (0-5) H 05/04/21 12:22 Amorphous Sediment Not Reportable 05/04/21 12:22 Urine Bacteria Trace /hpf (NONE) 05/04/21 12:22 Coronavirus 229E (PCR) Not detected (NOT DETECT) 05/04/21 11:07 SARS-CoV-2 (PCR) Detected (NOT DETECT) A 05/04/21 11:07 Discharge Plan Discharge Patient Disposition: Home Clinical Impression: Cough, Fever, Chill, Generalized weakness Condition: Stable Prescriptions: New Zofran 4 mg tablet 4 mg PO TID PRN (Reason: nausea and vomiting) 4 Days Qty: 12 0RF acetaminophen 500 mg tablet 500 mg PO Q6H PRN (Reason: pain) 5 Days Qty: 20 0RF Maalox Advanced 1,000-60 mg tablet,chewable 1 tab PO TID PRN (Reason: abdominal pain) 7 Days Qty: 21 0RF No Action Anoro Ellipta 62.5-25 mcg/actuation blister with device 1 inh inhalation Q24H 0RF levothyroxine 88 mcg tablet 88 mcg PO DAILY 0RF digoxin 125 mcg (0.125 mg) tablet 125 mcg PO DAILY 0RF Eliquis 5 mg tablet 5 mg PO BID 0RF furosemide 40 mg tablet 20 mg PO DAILY 0RF gabapentin 600 mg tablet 600 mg PO TID 0RF loratadine 10 mg tablet 10 mg PO DAILY 0RF Myrbetriq 50 mg tablet extended release 24 hr 50 mg PO Q24H 0RF lisinopril 10 mg tablet 10 mg PO BID PRN0RF triamcinolone acetonide 0.1 % cream See Rx Instructions .ROUTE .COMPLEX Qty: 80 0RF Dose Instruction: USE ONE APPLICATION TOPICALLY TWICE DAILY Rx Instructions: USE ONE APPLICATION TOPICALLY TWICE DAILY trazodone 50 mg Tablet 25 - 50 mg PO BEDTIME PRN (Reason: Sleep) 0RF pravastatin 20 mg Tablet 20 mg PO DAILY 0RF hydroxyzine pamoate 25 mg Capsule 25 mg PO BEDTIME PRN (Reason: unknown) 0RF duloxetine [Cymbalta] 60 mg Capsule,Delayed Release(Dr/Ec) 60 mg PO DAILY 0RF cholecalciferol (vitamin D3) 1,250 mcg (50,000 unit) capsule 50,000 unit PO Q7D 0RF Rx Instructions: (ON SUNDAYS) hydrocodone-acetaminophen 10-325 mg tablet 1 tab PO Q8H PRN (Reason: Pain) 0RF donepezil 10 mg tablet 10 mg PO DAILY 0RF metformin 500 mg tablet extended release 24 hr 500 mg PO DAILY 0RF Thermotabs 287-180-15 mg Tablet 1 tab PO DAILY 0RF albuterol sulfate [Ventolin HFA] 90 mcg/actuation Hfa Aerosol Inhaler 2 puff INHALATION Q4H PRN (Reason: Shortness Of Breath) 0RF fluticasone propionate [Flonase Allergy Relief] 50 mcg/actuation [place],Suspension 1 - 2 spray INTRANASAL DAILY 0RF nitroglycerin 0.4 mg tablet, sublingual 0.4 mg SUBLINGUAL Q5M PRN (Reason: chest pain) Qty: 30 0RF Rx Instructions: do not exceed 3 doses per episode pantoprazole 40 mg Tablet,Delayed Release (Dr/Ec) 40 mg PO DAILY 0RF potassium chloride 20 mEq Tablet Extended Release 20 meq PO 5XD 0RF diltiazem HCl 120 mg capsule,extended release 24 hr 120 mg PO DAILY MDD see pharmacy comment Qty: 30 0RF Discharge Orders: Discharge ED (Routine); Ordered 05/04/21 Ordered By: Fabiano Porter Other Ambulatory Orders: Request for MCA (Routine) Timeframe: 1 Day Facility: [facility] - Location: Outpatient Surgical Services Ordered By: Fabiano Porter Referrals: Radha Martinez MD [Primary Care Provider] - Discharge Diet: Advance as tolerated Discharge Activity: Increase activity as tolerated Patient Instructions: COVID-19 (Coronavirus Disease 2019) (ED) Activity Restrictions/Additional Instructions: Come back to the emergency room if your symptoms worsen, have any shortness of breath, fever/chills, dehydration, inability tolerate p.o., any difficulty breathing, or any new or concerning complaints. Please return the emergency room if your pulse ox reads less than 88%. We will call you for monoclonal infusion. Coding Level of Care Code ED Tax Compliance Agent for Juan F Fwd Exam Comprehensive
[2021-05-04] MEDS: acetaminophen 500 mg Tablet 1000 MG PO (11:41)
[2021-05-04] MEDS: sodium chloride 0.9% 1,000 ML 999 ML IV (11:41)
[2021-05-04 12:16] LABS: Basophils % 0.5 %; Eosinophils % 0.2 %; Hematocrit 45.2 % (37.0-47.0); Hemoglobin 14.7 g/dL (11.5-15.3); Lymphocytes # 0.5 10^3/uL (0.8-4.8); Lymphocytes % 13.1 %; Mean Corpuscular HGB Conc 32.5 g/dL (30.0-36.0); Mean Corpuscular Hemoglobin 29.6 pg (28.0-34.0); Mean Corpuscular Volume 91.1 fl (81-99); Mean Platelet Volume 9.9 fL (7.4-10.4); Monocytes # 0.8 10^3/uL (0.2-0.9); Monocytes % 19.1 %; Neutrophils % 66.9 %; Nucleated Red Blood Cells % 0 %; Platelet Count 181 10^3/cmm (130-400); Red Blood Count 4.96 10^6/uL (4.1-5.3); Red Cell Distribution Width 12.9 % (12.1-15.1)
--- NOTE | 2021-05-04 12:37 | ECG_ITS ---
[facility] Test Date: 2021-05-04 Pat Name: Arielle Vences Department: Room: Gender: Female Male Infertility Specialist: : 1940 Requested By: Fabiano Porter Order Number: [id number] Reba MD: Tremayne Hermosillo M.D. Measurements Intervals [place] Rate: 91 P: SD: QRS: -79 QRSD: 100 T: 55 QT: 375 QTc: 462 Interpretive Statements ATRIAL FIBRILLATION PATTERN CONSISTENT WITH PULMONARY DISEASE LEFT ANTERIOR FASCICULAR BLOCK [QRS AXIS <= -45, QR IN I, RS IN II] SEPTAL MYOCARDIAL INFARCTION , PROBABLY OLD [40+ ms Q WAVE IN V1/V2] Compared to ECG 05/04/2021 11:28:52 Myocardial infarct finding now present Electronically Signed On 05-06-2021 9:03:27 CLASSIFICATION CLERK by Tremayne Hermosillo M.D. [id number]
[2021-05-04 12:38] LABS: Add Urine Microscopic? YES; Bilirubin Urine Neg (Negative); Blood Urine Neg (Negative); Glucose Urine UA Norm (Normal); Ketones Urine Negative (Negative); Leukocyte Esterase Urine Trace (Negative); Nitrate Urine Negative (Negative); Protein Urine Neg (Negative); Urine Appearance Clear (CLEAR); Urine Color Straw (Yellow); Urobilinogen Urine Norm (Negative); pH Urine 7 (5-7)
[2021-05-04 12:39] LABS: Add Urine Culture? No; Bacteria Urine TRACE /hpf; Squamous Epithelial Cell Urine 0-4 /hpf (0-5); WBC Urine 0-4 /hpf (0-5)
[2021-05-04 12:46] LABS: Alanine Aminotransferase 19 U/L (0-33); Albumin Level 4.6 g/dL (3.5-5.2); Alkaline Phosphatase 64 IU/L (35-105); Anion Gap 17.8 (5-19); Aspartate Amino Transferase 28 U/L (0-32); Blood Urea Nitrogen 8 mg/dL (8-23); Calcium 8.6 mg/dL (8.5-10.5); Carbon Dioxide 25 mmol/L (22-29); Chloride 100 mmol/L (98-107); Creatinine Clr Calc Pharmacy 62.0363; Globulin 1.9 g/dL (1.3-4.6); Glucose 99 mg/dL (65-115); Lipase 24 U/L (13-60); Osmolality Calculated 286 mOsm/kg (285-295); Potassium 3.8 mmol/L (3.5-5.1); Sodium 139 mmol/L (136-145); Total Bilirubin 0.3 mg/dL (0.15-1.2); Total Protein 6.5 g/dL (6.6-8.7)
[2021-05-04 12:47] LABS: Troponin(5th) Baseline 22 ng/L (0-10)
[2021-05-04 13:35] LABS: Adenovirus Not Detected (NOT DETECT); Chlamydia Pneumoniae Not Detected (NOT DETECT); Coronavirus 229E,HKU1,NL63,OC4 Not Detected (NOT DETECT); Human Metapneumovirus Not Detected (NOT DETECT); Human Rhinovirus/Enterovirus Not Detected (NOT DETECT); Influenza A Not Detected (NOT DETECT); Influenza A H1 Not Detected (NOT DETECT); Influenza A H1-2009 Not Detected (NOT DETECT); Influenza A H3 Not Detected (NOT DETECT); Influenza B Not Detected (NOT DETECT); Mycoplasma Pneumoniae Not Detected (NOT DETECT); Parainfluenza Virus Type 1 Not Detected (NOT DETECT); Parainfluenza Virus Type 2 Not Detected (NOT DETECT); Parainfluenza Virus Type 3 Not Detected (NOT DETECT); Parainfluenza Virus Type 4 Not Detected (NOT DETECT); Respiratory Syncytial Virus A Not Detected (NOT DETECT); Respiratory Syncytial Virus B Not Detected (NOT DETECT); SARS-COV-2 Detected (NOT DETECT)
[2021-05-04 13:43] LABS: Troponin 5 2HR 20.27 ng/L (0-10)
[2021-05-04] MEDS: lidocaine 2% viscous 15 ML, aluminum-mag hydrox-simethicon 30 ML, sucralfate oral liq 1 GM PO (13:43)
[2021-05-04 13:45] LABS: Troponin 5 2HR Delta -1.73 ABS# (0-10)
--- NOTE | 2021-05-04 17:11 | PC.NURSE ---
Received orders from Dr. Porter that I can discharge patient, and I do not need new discharge orders.
== END 2021-05-04 17:16 | disposition home or self-care (01) ==
PROVIDERS: Emergency Provider Emergency Medicine; PCP Family Medicine
DX: U07.1 COVID-19 (principal); Z79.01 Long term (current) use of anticoagulants; Z79.84 Long term (current) use of oral hypoglycemic drugs; I11.0 Hypertensive heart disease with heart failure; I50.22 Chronic systolic (congestive) heart failure; J44.9 Chronic obstructive pulmonary disease, unspecified; E78.2 Mixed hyperlipidemia
CPT/HCPCS: 36415; 71045; 80053; 81001; 83690; 84484; 85025; 87635; 93005; 96365; 99284; J7030

== ENCOUNTER 2021-05-12 19:10 | Emergency (ER) | payer MEDICARE, MEDICAID, SELFPAY ==
[2021-05-12 19:15] VITALS: BP 183/94; PULSE 75; RESP 18; TEMP 36.7; O2SAT 96; BMI 27.3
--- NOTE | 2021-05-12 19:22 | XRR_ITS ---
PROCEDURE INFORMATION: Exam: XR Chest Exam date and time: 05/12/2021 7:22 PM Age: 80 years old Clinical indication: Chest wall pain; Additional info: Cp TECHNIQUE: Imaging protocol: XR of the chest. Views: 1 view. COMPARISON: CR (CHEST, ) 05/04/2021 11:31 AM FINDINGS: Lungs: Emphysematous changes. Pleural spaces: Unremarkable. No pleural effusion. No pneumothorax. Heart/Mediastinum: Cardiomegaly. Bones/joints: Unremarkable. XR/XR chest 1V portable [id number] IMPRESSION: 1. Negative for infiltrate. 2. Cardiomegaly. 3. Emphysematous changes.
--- NOTE | 2021-05-12 19:23 | ED_ITS ---
HPI - Chest Pain General: Chief Complaint: Chest Pain Stated Complaint: CP Time Seen by Provider: 05/12/21 19:19 Source: patient and EMS Mode of arrival: EMS Limitations: no limitations History of Present Illness: 80-year-old female states she started having chest pain 1 hour ago. States is a pressure pain mild nature at the worst was a 4 out of 10 she received an aspirin in route and is currently pain-free. Patient denies any shortness of breath denies any nausea or vomiting she denies any worsening factors. She states she did not have any radiation of the pain either. Associated symptoms: Deny abdominal pain, dyspnea, fever(s), nausea or vomiting Review of Systems Const: Denies: fever(s), chills, body aches or change in appetite Eyes: Denies: blurry vision or eye discomfort ENMT: Denies: throat pain or dental pain Card: Reports: chest pain Resp: Denies: dyspnea GI: Denies: abdominal pain, nausea, vomiting or diarrhea : Denies: dysuria Musc: Denies: neck pain or back pain Skin/Breast: Denies: rash Neuro: Denies: headache(s) Psych: Denies: depression [place]/Lymph: Denies: easy bruising All/Imm: Denies: urticaria PFSH ED PFSH: Medical History Anal fissure Atrial fibrillation with RVR Chronic back pain Chronic systolic (congestive) heart failure COPD (chronic obstructive pulmonary disease) COVID Essential hypertension Lymphedema of both lower extremities Mixed hyperlipidemia Surgical History History of bladder surgery History of colonoscopy years ago History of hysterectomy Family History Sister Stroke CAD (coronary artery disease) [place] @ 75 Hypertension Brother Cancer Father Cancer Social History Second hand smoke exposure: No Smoking risk assessment/counseling performed?: No Alcohol intake: never Desire information about alcohol rehabilitation?: No Counseling given: No Desire information about substance/drug rehabilitation?: No Counseling given: No Adopted: No Caregiver/support person: No Lives independently: Yes Household members: spouse Housing: House Marital status: service: No Current occupational status: retired History of recent travel: No Current gender identity: Female Physical Exam Const: COMMON NORMALS: no acute distress, patient oriented x3 and healthy appearing HENMT: COMMON NORMALS: normocephalic and atraumatic HEAD & SCALP: normocephalic and atraumatic Eye: COMMON NORMALS: Equal, round and reactive pupils present and EOMs intact bilaterally PUPIL: Yes Equal, round and reactive pupils present Neck/C-Spine: COMMON NORMALS: full ROM and supple Chest: COMMONS NORMALS: normal inspection of the chest and normal palpation of entire chest wall Resp: COMMON NORMALS: normal respiratory effort, No retractions, No use of accessory muscles and clear to auscultation bilaterally AUSCULTATION: clear to auscultation bilaterally Cardio: COMMON NORMALS: regular rate, regular rhythm and No murmurs present (Cardio) RATE: regular rate RHYTHM: regular rhythm GI: COMMON NORMALS: Normal to inspection, nondistended, normoactive bowel sounds present, Soft to palpation, non-tender and no masses PALPATION: Yes Soft to palpation Extremity: COMMON NORMALS: normal to inspection and full ROM Neuro: COMMON NORMALS: patient oriented x3, moves all extremities and no focal motor deficits Psych: COMMON NORMALS: mental status grossly normal, Normal thought process present and cooperative THOUGHT PROCESS: Normal thought process present Skin: COMMON NORMALS: no rashes or lesions noted and no wounds GENERAL SKIN EXAM: no rashes or lesions noted Course Vital Signs: Vital signs: Vital Signs Temperature 98.1 F 05/12/21 19:15 Pulse Rate 75 05/12/21 19:15 Respiratory Rate 18 05/12/21 19:15 Blood Pressure 183/94 05/12/21 19:15 Pulse Oximetry 96 05/12/21 19:15 MDM - Chest Pain Medical Decision Making Patient presents with chest pain she has had no pain here and is willing to leave first troponin is mildly elevated I recommended her to stay for 2-hour but she refused she has medical decision making the past he understands risks and si gned out AMA. Lab Data : 05/12/21 19:24 05/12/21 19:24 Laboratory Results WBC 7.9 10^3/uL (4.0-10.0) 05/12/21 19:24 RBC 4.98 10^6/uL (4.1-5.3) 05/12/21 19: Hgb 14.7 g/dL (11.5-15.3) 05/12/21: Hct 45.9 % (37.0-47.0) 05/12/21: MCV 92.2 fl (81-99) 05/12/21: MCH 29.5 pg (28.0-34.0) 05/12/21: MCHC 32.0 g/dL (30.0-36.0) 05/12/21: RDW 12.9 % (12.1-15.1) 05/12/21 Plt Count 244 10^3/cmm (130-400) 05/12/21 MPV 10.0 fL (7.4-10.4) 05/12/21 Neut % (Auto) 70.9 % 05/12/21: Lymph % (Auto) 18.4 % 05/12/21: [place] % (Auto) 9.1 % 05/12/21: Eos % (Auto) 1.4 % 05/12/21: Baso % (Auto) 0.1 % 05/12/21 Neut # (Auto) 5.59 10^3/uL (1.8-7.7) 05/12/21 Lymph # (Auto) 1.5 10^3/uL (0.8-4.8) 05/12/21: [place] # (Auto) 0.7 10^3/uL (0.2-0.9) 05/12/21: Eos # (Auto) 0.1 10^3/uL (0.0-0.8) 05/12/21 Baso # (Auto) 0.0 10^3/uL (0.0-0.1) 05/12/21 Nucleated RBC % (auto) 0 % 05/12/21 Nucleated RBCs # 0.0 /100WBC 05/12/21: Sodium 136 mmol/L (136-145) 05/12/21: Potassium 4.3 mmol/L (3.5-5.1) 02/20/22 19:24 Chloride 102 mmol/L (98-107) 05/12/21 19:24 Carbon Dioxide 23 mmol/L (22-29) 05/12/21 19:24 Anion Gap 15.3 (5-19) 05/12/21 19:24 BUN 12 mg/dL (8-23) 05/12/21 19:24 Creatinine 0.9 mg/dL (0.5-0.9) 05/12/21 19:24 GFR Calculation Not Reportable 05/12/21 19:24 Glucose 98 mg/dL (65-115) 05/12/21 19:24 Calculated Osmolality 282 mOsm/kg (285-295) L 05/12/21 19:24 Calcium 10.2 mg/dL (8.5-10.5) 05/12/21 19:24 Total Bilirubin 0.6 mg/dL (0.15-1.2) 05/12/21 19:24 AST 20 U/L (0-32) 05/12/21 19:24 ALT 15 U/L (0-33) 05/12/21 19:24 Alkaline Phosphatase 58 IU/L (35-105) 05/12/21 19:24 Troponin T Baseline 24 ng/L (0-10) H 05/12/21 19:24 Total Protein 6.9 g/dL (6.6-8.7) 05/12/21 19:24 Albumin 4.7 g/dL (3.5-5.2) 05/12/21 19:24 Globulin 2.2 g/dL (1.3-4.6) 05/12/21 19:24 Digoxin 0.4 ng/mL (0.6-1.2) L 05/12/21 19:24 EKG Data EKG 1: I personally reviewed and interpreted this EKG as follows: EKG interpretation date: 05/12/21 EKG interpretation time: 19:16 Interpretation: nsr hr [address] or t wave abnormalities qrs 72 qtc 372 Discharge Plan Discharge Patient Disposition: Left Against Medical Advice Clinical Impression: Chest pain Condition: Stable Prescriptions: No Action Anoro Ellipta 62.5-25 mcg/actuation blister with device 1 inh inhalation Q24H 0RF levothyroxine 88 mcg tablet 88 mcg PO DAILY 0RF digoxin 125 mcg (0.125 mg) tablet 125 mcg PO DAILY 0RF Eliquis 5 mg tablet 5 mg PO BID 0RF furosemide 40 mg tablet 20 mg PO DAILY 0RF gabapentin 600 mg tablet 600 mg PO TID 0RF loratadine 10 mg tablet 10 mg PO DAILY 0RF Myrbetriq 50 mg tablet extended release 24 hr 50 mg PO Q24H 0RF lisinopril 10 mg tablet 10 mg PO BID PRN0RF triamcinolone acetonide 0.1 % cream See Rx Instructions .ROUTE .COMPLEX Qty: 80 0RF Dose Instruction: USE ONE APPLICATION TOPICALLY TWICE DAILY Rx Instructions: USE ONE APPLICATION TOPICALLY TWICE DAILY trazodone 50 mg Tablet 25 - 50 mg PO BEDTIME PRN (Reason: Sleep) 0RF pravastatin 20 mg Tablet 20 mg PO DAILY 0RF hydroxyzine pamoate 25 mg Capsule 25 mg PO BEDTIME PRN (Reason: unknown) 0RF duloxetine [Cymbalta] 60 mg Capsule,Delayed Release(Dr/Ec) 60 mg PO DAILY 0RF cholecalciferol (vitamin D3) 1,250 mcg (50,000 unit) capsule 50,000 unit PO Q7D 0RF Rx Instructions: (ON SUNDAYS) hydrocodone-acetaminophen 10-325 mg tablet 1 tab PO Q8H PRN (Reason: Pain) 0RF donepezil 10 mg tablet 10 mg PO DAILY 0RF metformin 500 mg tablet extended release 24 hr 500 mg PO DAILY 0RF Thermotabs 287-180-15 mg Tablet 1 tab PO DAILY 0RF albuterol sulfate [Ventolin HFA] 90 mcg/actuation Hfa Aerosol Inhaler 2 puff INHALATION Q4H PRN (Reason: Shortness Of Breath) 0RF fluticasone propionate [Flonase Allergy Relief] 50 mcg/actuation [place],Suspension 1 - 2 spray INTRANASAL DAILY 0RF nitroglycerin 0.4 mg tablet, sublingual 0.4 mg SUBLINGUAL Q5M PRN (Reason: chest pain) Qty: 30 0RF Rx Instructions: do not exceed 3 doses per episode pantoprazole 40 mg Tablet,Delayed Release (Dr/Ec) 40 mg PO DAILY 0RF potassium chloride 20 mEq Tablet Extended Release 20 meq PO 5XD 0RF diltiazem HCl 120 mg capsule,extended release 24 hr 120 mg PO DAILY MDD see pharmacy comment Qty: 30 0RF Referrals: Radha Martinez MD [Primary Care Provider] - Coding Level of Care Code ED 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
[2021-05-12 19:31] LABS: Basophils % 0.1 %; Eosinophils # 0.1 10^3/uL (0.0-0.8); Eosinophils % 1.4 %; Hematocrit 45.9 % (37.0-47.0); Hemoglobin 14.7 g/dL (11.5-15.3); Lymphocytes # 1.5 10^3/uL (0.8-4.8); Lymphocytes % 18.4 %; Mean Corpuscular Hemoglobin 29.5 pg (28.0-34.0); Mean Corpuscular Volume 92.2 fl (81-99); Monocytes # 0.7 10^3/uL (0.2-0.9); Monocytes % 9.1 %; Neutrophils # 5.59 10^3/uL (1.8-7.7); Neutrophils % 70.9 %; Nucleated Red Blood Cells % 0 %; Platelet Count 244 10^3/cmm (130-400); Red Blood Count 4.98 10^6/uL (4.1-5.3); Red Cell Distribution Width 12.9 % (12.1-15.1); White Blood Count 7.9 10^3/uL (4.0-10.0)
[2021-05-12 19:53] LABS: Alanine Aminotransferase 15 U/L (0-33); Albumin Level 4.7 g/dL (3.5-5.2); Alkaline Phosphatase 58 IU/L (35-105); Anion Gap 15.3 (5-19); Aspartate Amino Transferase 20 U/L (0-32); Blood Urea Nitrogen 12 mg/dL (8-23); Calcium 10.2 mg/dL (8.5-10.5); Carbon Dioxide 23 mmol/L (22-29); Chloride 102 mmol/L (98-107); Globulin 2.2 g/dL (1.3-4.6); Glucose 98 mg/dL (65-115); Osmolality Calculated 282 mOsm/kg (285-295); Potassium 4.3 mmol/L (3.5-5.1); Sodium 136 mmol/L (136-145); Total Bilirubin 0.6 mg/dL (0.15-1.2); Total Protein 6.9 g/dL (6.6-8.7)
[2021-05-12 19:54] LABS: Digoxin 0.4 ng/mL (0.6-1.2)
[2021-05-12 20:23] LABS: Troponin(5th) Baseline 24 ng/L (0-10)
== END 2021-05-12 20:24 | disposition left against medical advice (07) ==
PROVIDERS: Emergency Provider Emergency Medicine; PCP Family Medicine
DX: R07.9 Chest pain, unspecified (principal); Z53.21 Procedure and treatment not carried out due to patient leaving prior to being seen by health care provider; Z79.01 Long term (current) use of anticoagulants; Z79.84 Long term (current) use of oral hypoglycemic drugs; I11.0 Hypertensive heart disease with heart failure; I50.22 Chronic systolic (congestive) heart failure; J44.9 Chronic obstructive pulmonary disease, unspecified; E78.2 Mixed hyperlipidemia
CPT/HCPCS: 71045; 80053; 80162; 84484; 85025; 99283

== ENCOUNTER → 2021-07-19 13:42 | Outpatient (BNVA) | payer MEDICARE, MEDICAID, SELFPAY | PROVIDERS: PCP Family Medicine; Visit Provider Surgery | DX: Z86.010 Personal history of colon polyps (principal); I48.91 Unspecified atrial fibrillation | CPT/HCPCS: 99214 ==

== ENCOUNTER → 2021-12-03 15:36 | Outpatient (BNVA) | payer MEDICARE, MEDICAID, SELFPAY | PROVIDERS: PCP Family Medicine; Visit Provider Nurse Practitioner Family | DX: R11.10 Vomiting, unspecified (principal); R19.7 Diarrhea, unspecified | CPT/HCPCS: 80053; 85025 ==

== ENCOUNTER 2022-01-14 08:43 | Emergency (ER) | payer MEDICARE, MEDICAID, SELFPAY ==
[2022-01-14] VITALS (52 sets, daily range): BP systolic 160–194; BP diastolic 98–120; PULSE 88–132; RESP 7–26; TEMP 36.3; O2SAT 90–99; BMI 25.0
--- NOTE | 2022-01-14 08:57 | ECG_ITS ---
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 Measurements Intervals [place] Rate: 116 P: VT: QRS: -76 QRSD: 94 T: 59 QT: 335 QTc: 466 Interpretive Statements ATRIAL FIBRILLATION WITH RAPID VENTRICULAR RESPONSE INCOMPLETE RIGHT BUNDLE BRANCH BLOCK [90+ ms QRS DURATION, TERMINAL R IN V1/V2, 40+ ms S IN I/aVL/V4/V5/V6] LEFT ANTERIOR FASCICULAR BLOCK [QRS AXIS <= -45, QR IN I, RS IN II] POSSIBLE ANTERIOR MYOCARDIAL INFARCTION , OF INDETERMINATE AGE [30 ms Q WAVE IN V3/V4, OR R < 0.2 mV IN V4] Compared to ECG 05/04/2021 12:43:57 Incomplete right bundle-branch block now present Myocardial infarct finding still present Electronically Signed On 01-15-2022 0:19:02 CDT by Vidal Christopher M.D. [id number]
--- NOTE | 2022-01-14 08:57 | XR_ITS ---
WS: [id number] Exam: XR chest 1V portable [id number] Date/Time of Exam: 01/14/2022 9:01 AM Reason For Exam: cp comparison 05/12/2021. The lungs are hyperinflated and clear. Mild cardiac enlargement unchanged. No pleural effusions. The mediastinum is normal in contour. Bony structures are intact. XR/XR chest 1V portable [id number] IMPRESSION: 1. Pulmonary hyperinflation which may indicate obstructive lung disease. No acu te pulmonary finding. 2. Mild cardiac enlargement unchanged.
--- NOTE | 2022-01-14 09:00 | ED_ITS ---
Documented by User: ROD Hall 01/15/22 20:52 HPI - General Adult General: Chief complaint: General Medical Stated complaint: Fever, Chest Pain Time Seen by Provider: 01/14/22 08:56 History of Present Illness: Patient is a 81-year-old female comes to the ED with malaise. Patient has a history of A. fib, COPD, hypertension and CHF. Patient states that for the past couple days she just has not felt good. She denies any chest pain and cannot pinpoint exactly why she does not feel good. She endorses having some shortness of breath over the past couple days as well. Today she woke up and felt even worse than she did yesterday and thought she ne eded to be checked out. Denies any fever, chills, vomiting, abdominal pain, bladder or bowel symptoms. Patient says she has been taking all her medications as prescribed but did not take her diltiazem this morning, but that came here to the ED because she was not feeling well. Associated symptoms: Reports malaise; Deny chest pain, dyspnea, headache(s), nausea, rash, palpitations or vomiting Review of Systems Const: Reports: malaise; Denies: fever(s), chills or fatigue Eyes: Denies: change in vision or eye discomfort ENMT: Denies: throat pain, odynophagia, nasal discharge or nasal congestion Card: Denies: chest pain, palpitations, edema, swelling of feet/ankles, dyspnea on exertion or orthopnea Resp: Denies: dyspnea, productive cough or non-productive cough GI: Denies: abdominal pain, nausea, vomiting, diarrhea, constipation or hematochezia : Denies: flank pain, dysuria or hematuria Musc: Denies: neck pain, back pain or extremity swelling Skin/Breast: Denies: rash or new lesions Neuro: Denies: headache(s), numbness in extremities or weakness in extremities PFS ED PFSH: Medical History Anal fissure Atrial fibrillation with RVR Chronic back pain Chronic systolic (congestive) heart failure COPD (chronic obstructive pulmonary disease) COVID Essential hypertension History of colon polyps Lymphedema of both lower extremities Mixed hyperlipidemia Surgical History History of bladder surgery History of colonoscopy years ago History of hysterectomy Family History Sister Stroke CAD (coronary artery disease) [place] @ 75 Hypertension Brother Cancer Father Cancer Social History Smoking and tobacco status: never smoked Second hand smoke exposure: No Smoking risk assessment/counseling performed?: No Alcohol intake: never Desire information about alcohol rehabilitation?: No Counseling given: No Desire information about substance/drug rehabilitation?: No Counseling given: No Adopted: No Caregiver/support person: No Lives independently: Yes Household members: spouse Housing: House Marital status: service: No Current occupational status: retired History of recent travel: No Current gender identity: Female Physical Exam Const: COMMON NORMALS: patient oriented x3 and alert GENERAL APPEARANCE: cooperative and comfortable HENMT: COMMON NORMALS: normocephalic HEAD & SCALP: normocephalic MOUTH: Normal oral and palatal mucosa present THROAT: posterior oropharynx normal and uvula midline Neck/C-Spine: COMMON NORMALS: supple GENERAL: Yes normal visual inspection Resp: COMMON NORMALS: normal respiratory effort, No retractions, No use of accessory muscles and clear to auscultation bilaterally AUSCULTATION: clear to auscultation bilaterally Cardio: COMMON NORMALS: S1 normal heart sound present, S2 normal heart sound present, No gallops present (Cardio), No clicks present (Cardio), No murmurs present (Cardio) and Peripheral pulses 2+ throughout RATE: tachycardic (Rate around 115) RHYTHM: abnormal rhythm irregularly irregular HEART SOUNDS: S1 normal heart sound present and S2 normal heart sound present PERIPHERAL PULSES: Peripheral pulses 2+ throughout GI: COMMON NORMALS: Normal to inspection, nondistended, normoactive bowel sounds present, Soft to palpation, non-tender and no masses PALPATION: Yes Soft to palpation : COMMON NORMALS: Yes no CVA tenderness BLADDER/KIDNEY EXAM: Yes no CVA tenderness Back/Pelvis: COMMON NORMALS: no CVA tenderness Extremity: COMMON NORMALS: normal to inspection Neuro: COMMON NORMALS: patient oriented x3 SENSORIUM/ORIENTATION: Yes alert GAIT: Yes Normal gait present Skin: GENERAL SKIN EXAM: dry skin Course Vital Signs: Vital signs: Vital Signs Temperature 97.4 F L 01/14/22 08:50 Pulse Rate 112 H 01/14/22 13:11 Respiratory Rate 25 H 01/14/22 13:11 Blood Pressure 170/98 01/14/22 14:33 Pulse Oximetry 94 01/14/22 14:30 Oxygen Delivery Me thod 01/14/22 11:45 MDM - General Adult Medical Decision Making Patient is a 81-year-old female comes to the ED with malaise. Patient has a history of A. fib, COPD, hypertension and CHF. Patient states that for the past couple days she just has not felt good. She denies any chest pain and cannot pinpoint exactly why she does not feel good. She endorses having some shortness of breath over the past couple days as well. Patient's heart rate bounces around between upper 90s to 115. Blood pressure is elevated at 194/118. Rest of her vitals are stable. CBC and CMP were unremarkable. Troponins negative. EKG showed A. fib but no ST segment elevation or depression seen. Digoxin level was 0.3 and BNP was 3700 which is increased from 2435. Chest x-ray showed no acute findings. I talked with Dr. Avery about patient case and he recommended giving patient some Cardizem here in the ED and discharging her home with a new prescription for 180 mg of diltiazem daily. Patient was given meds and dose of hydralazine and her blood pressure went down to 170/98. She was stable for discharge home and diagnosed with A. fib and hypertension. She was discharged home with a new prescription for diltiazem 180 mg and told to stop taking her previously prescribed diltiazem of 120 mg. Return ED precautions given. Follow-up with her PCP within the next 3 to 5 days for reevaluation. Patient understood and agreed with plan. Lab Data I reviewed the patient's lab results. : 01/14/22 09:40 01/14/22 09:40 Radiology Impressions Chest X-Ray 01/14/22 08:57 IMPRESSION: 1. Pulmonary hyperinflation which may indicate obstructive lung disease. No acute pulmonary finding. 2. Mild cardiac enlargement unchanged. Laboratory Results WBC 7.2 10^3/uL (4.0-10.0) 01/14/22 09:40 RBC 4.83 10^6/uL (4.1-5.3) 01/14/22 09:40 Hgb 14.5 g/dL (11.5-15.3) 01/14/22 09:40 Hct 44.2 % (37.0-47.0) 01/14/22 09:40 MCV 91.5 fl (81-99) 01/14/22 09:40 MCH 30.0 pg (28.0-34.0) 01/14/22 09:40 MCHC 32.8 g/dL (30.0-36.0) 01/14/22 09:40 RDW 13.0 % (12.1-15.1) 01/14/22 09:40 Plt Count 216 10^3/cmm (130-400) 01/14/22 09:40 MPV 9.4 fL (7.4-10.4) 01/14/22 09:40 Neut % (Auto) 74.9 % 01/14/22 09:40 Lymph % (Auto) 14.6 % 01/14/22 09:40 [place] % (Auto) 8.4 % 01/14/22 09:40 Eos % (Auto) 1.2 % 01/14/22 09:40 Baso % (Auto) 0.6 % 01/14/22 09:40 Neut # (Auto) 5.42 10^3/uL (1.8-7.7) 01/14/22 09:40 Lymph # (Auto) 1.1 10^3/uL (0.8-4.8) 01/14/22 09:40 [place] # (Auto) 0.6 10^3/uL (0.2-0.9) 01/14/22 09:40 Eos # (Auto) 0.1 10^3/uL (0.0-0.8) 01/14/22 09:40 Baso # (Auto) 0.0 10^3/uL (0.0-0.1) 01/14/22 09:40 Nucleated RBC % (auto) 0 % 01/14/22 09:40 Nucleated RBCs # 0.0 /100WBC 01/14/22 09:40 Sodium 141 mmol/L (136-145) 01/14/22 09:40 Potassium 4.0 mmol/L (3.5-5.1) 01/14/22 09:40 Chloride 104 mmol/L (98-107) 01/14/22 09:40 Carbon Dioxide 25 mmol/L (22-29) 01/14/22 09:40 Anion Gap 16.0 (5-19) 01/14/22 09:40 BUN 10 mg/dL (8-23) 01/14/22 09:40 Creatinine 0.8 mg/dL (0.5-0.9) 01/14/22 09:40 GFR Calculation Not Reportable 01/14/22 09:40 Glucose 112 mg/dL (65-115) 01/14/22 09:40 Calculated Osmolality 292 mOsm/kg (285-295) 01/14/22 09:40 Calcium 10.0 mg/dL (8.5-10.5) 01/14/22 09:40 Total Bilirubin 0.7 mg/dL (0.15-1.2) 01/14/22 09:40 AST 19 U/L (0-32) 01/14/22 09:40 ALT 11 U/L (0-33) 01/14/22 09:40 Alkaline Phosphatase 73 U/L (35-105) 01/14/22 09:40 Troponin T Baseline 22 ng/L (0-10) H 01/14/22 09:40 Troponin T 120 Minute 21.18 ng/L (0-10) H 01/14/22 11:44 Delta Troponin T -0.82 ABS# (0-10) L 01/14/22 11:44 NT-Pro-B Natriuret Pep 3700 pg/mL (0-450) H 01/14/22 09:40 Total Protein 7.0 g/dL (6.6-8.7) 01/14/22 09:40 Albumin 4.7 g/dL (3.5-5.2) 01/14/22 09:40 Globulin 2.3 g/dL (1.3-4.6) 01/14/22 09:40 Urine Color Yellow (Yellow) 01/14/22 09:14 Urine Appearance Clear (CLEAR) 01/14/22 09:14 Urine pH 8 (5-7) H 01/14/22 09:14 Ur Specific Mason 1.015 (1.005-1.030) 01/14/22 09:14 Urine Protein Neg (Negative) 01/14/22 09:14 Urine Glucose (UA) Norm (Normal) 01/14/22 09:14 Urine Ketones Negative (Negative) 01/14/22 09:14 Urine Blood Neg (Negative) 01/14/22 09:14 Urine Nitrate Negative (Negative) 01/14/22 09:14 Urine Bilirubin Neg (Negative) 01/14/22 09:14 Urine Urobilinogen Norm mg/dL (Negative) 01/14/22 09:14 Ur Leukocyte Esterase 2+ (Negative) H 01/14/22 09:14 Urine RBC 0-4 /hpf (0-2) H 01/14/22 09:14 Urine WBC 0-4 /hpf (0-5) H 01/14/22 09:14 Ur Squamous Epith Cells 0-4 /hpf (0-5) H 01/14/22 09:14 Amorphous Sediment Not Reportable 01/14/22 09:14 Urine Bacteria 4+ /hpf (NONE) H 01/14/22 09:14 Digoxin 0.3 ng/mL (0.6-1.2) L 01/14/22 09:40 EKG Data EKG 1: EKG interpretation date: 01/14/22 Computer generated interpretation: Chest X-Ray 01/14/22 08:57 IMPRESSION: 1. Pulmonary hyperinflation which may indicate obstructive lung disease. No acute pulmonary finding. 2. Mild cardiac enlargement unchanged. [address] [address] Electrocardiograph Report Signed Patient: Arielle Vences Unit #: [id number] : 1940 Age/Sex: 81 / F ADM Date: 01/14/22Loc: ER Room/Bed: Attending Dr: Ordering Provider/Ordering MD: Arvind Encarnacion Date of Service: 01/14/22 Procedure(s): ECG 12 lead EKG Accession Number(s): [id number] Report Number: [id number] ? [facility] ? Test Date:? ? 2022-01-14 Pat Name: ? ? Arielle Vences ? Department: ? Patient ID: ? [id number] ? Room: ? Gender: ? ? ? Female ? 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 :? 1940 ? Requested By: Arvind Shashank Order Number: [id number]? Reading : ? Vidal Christopher M.D. ? Measurements Intervals? [place]? Rate: ? 96 ? P:? TX:? QRS:? -79 QRSD: ? 91 ? T:? 71 QT: ? 356? QTc:? 451? Interpretive Statements ATRIAL FIBRILLATION INCOMPLETE RIGHT BUNDLE BRANCH BLOCK? [90+ ms QRS DURATION, TERMINAL R IN V1/V2, 40+ ms S IN I/aVL/V4/V5/V6] LEFT ANTERIOR FASCICULAR BLOCK? [QRS AXIS <= -45, QR IN I, RS IN II] ANTEROSEPTAL MYOCARDIAL INFARCTION , PROBABLY OLD [40+ ms Q WAVE IN V1-V4] Compared to ECG 01/14/2022 09:23:11 No significant changes Electronically Signed On 01-15-2022 0:25:21 CDT by Vidal Christopher M.D. [email or web address] Dictated By: Vidal Christopher MD Signed By: Vidal Christopher MD Signed Date/Time: 01/15/22 0026 DD/ 1203 Discharge Plan Discharge Patient Disposition: Home Clinical Impression: Hypertension A-fib Qualifiers: Atrial fibrillation type: unspecified Qualified Code(s): I48.91 - Unspecified atrial fibrillation Condition: Stable Prescriptions: New diltiazem HCl 180 mg capsule,extended release 24 hr 180 mg PO DAILY Qty: 30 0RF Discontinued diltiazem HCl 120 mg capsule,extended release 24 hr 120 mg PO DAILY Qty: 30 0RF No Action Anoro Ellipta 62.5-25 mcg/actuation blister with device 1 inh inhalation Q24H levothyroxine 88 mcg tablet 88 mcg PO DAILY digoxin 125 mcg (0.125 mg) tablet 125 mcg PO DAILY Eliquis 5 mg tablet 5 mg PO BID furosemide 40 mg tablet 20 mg PO DAILY gabapentin 600 mg tablet 600 mg PO TID loratadine 10 mg tablet 10 mg PO DAILY Myrbetriq 50 mg tablet extended release 24 hr 50 mg PO Q24H furosemide 10 mg/mL solution 40 mg IM ONCE Qty: 4 0RF ceftriaxone 1 gram recon soln 2 g IM ONCE Qty: 1 0RF promethazine [Phenergan] 25 mg/mL solution 25 mg IM ONCE Qty: 1 0RF ondansetron 8 mg tablet,disintegrating 8 mg PO Q8H PRN (Reason: nausea and vomiting) Qty: 21 0RF nitrofurantoin monohyd/m-cryst [Macrobid] 100 mg capsule 100 mg PO Q12H 10 Days Qty: 20 0RF Rx Instructions: must administer with a meal/food trazodone 50 mg Tablet 25 - 50 mg PO BEDTIME PRN (Reason: Sleep) pravastatin 20 mg Tablet 20 mg PO DAILY hydroxyzine pamoate 25 mg Capsule 25 mg PO BEDTIME PRN (Reason: Anxiety) duloxetine [Cymbalta] 60 mg Capsule,Delayed Release(Dr/Ec) 60 mg PO DAILY cholecalciferol (vitamin D3) 1,250 mcg (50,000 unit) capsule 50,000 unit PO Q7D Rx Instructions: (ON SUNDAYS) hydrocodone-acetaminophen 10-325 mg tablet 1 tab PO Q8H PRN (Reason: Pain) donepezil 10 mg tablet 10 mg PO DAILY Thermotabs 287-180-15 mg Tablet 1 tab PO DAILY albuterol sulfate [Ventolin HFA] 90 mcg/actuation Hfa Aerosol Inhaler 2 puff INHALATION Q4H PRN (Reason: Shortness Of Breath) fluticasone propionate [Flonase Allergy Relief] 50 mcg/actuation [place],Suspension 1 - 2 spray INTRANASAL DAILY PRN (Reason: Nasal Congestion) nitroglycerin 0.4 mg tablet, sublingual 0.4 mg SUBLINGUAL Q5M PRN (Reason: chest pain) Qty: 30 0RF Rx Instructions: do not exceed 3 doses per episode pantoprazole 40 mg Tablet,Delayed Release (Dr/Ec) 40 mg PO DAILY potassium chloride 20 mEq Tablet Extended Release 20 meq PO 5XD amlodipine 10 mg Tablet 10 mg PO DAILY lisinopril 10 mg tablet 10 mg PO BID montelukast 10 mg Tablet 10 mg PO DAILY tizanidine 2 mg Capsule 2 mg PO BID PRN (Reason: Spasms) triamcinolone acetonide 0.1 % ointment 1 applic topical TID PRN (Reason: Rash) Discharge Orders: Discharge ED (Routine); Ordered 01/14/22 Ordered By: Arvind Encarnacion Referrals: Radha Martinez MD [Primary Care Provider] - Discharge Diet: Regular Discharge Activity: Increase activity as tolerated Patient Instructions: A-fib (Atrial Fibrillation) (ED) Activity Restrictions/Additional Instructions: Follow-up with medical provider as directed in the next 3 to 5 days for r eevaluation.. Take medications as prescribed. You can stop taking your previously prescribed 120 mg diltiazem and start taking the new prescription sent home with you for 180 mg diltiazem daily. Return to the ER or your medical provider if condition worsens. Please read and understand discharge i nstructions. Thank you for choosing [facility] for your healthcare needs today. Please realize this is an emergency room and that we are providing you with a medical screening exam and this may not be complete and all inclusive of all the testing and or work up that you may need to determine your ailment or severity of your illness. It is very important that you follow up as instructed or that you return to the Emergency Department should you have concerns or if your condition changes or worsens in any way. Coding Level of Care Code ED Crystal Calibrator for Chg Fwd Exam Comprehensive Documented by User: Trell Avery DO 01/16/22 06:23 HPI - General Adult General: Chief complaint: General Medical Stated complaint: Fever, Chest Pain Time Seen by Provider: 01/14/22 08:56 PFSH ED PFSH: Medical History Anal fissure Atrial fibrillation with RVR Chronic back pain Chronic systolic (congestive) heart failure COPD (chronic obstructive pulmonary disease) COVID Essential hypertension History of colon polyps Lymphedema of both lower extremities Mixed hyperlipidemia Surgical History History of bladder surgery History of colonoscopy years ago History of hysterectomy Family History Sister Stroke CAD (coronary artery disease) [place] @ 75 Hypertension Brother Cancer Father Cancer Social History Smoking and tobacco status: never smoked Second hand smoke exposure: No Smoking risk assessment/counseling performed?: No Alcohol intake: never Desire information about alcohol rehabilitation?: No Counseling given: No Desire information about substance/drug rehabilitation?: No Counseling given: No Adopted: No Caregiver/support person: No Lives independently: Yes Household members: spouse Housing: House Marital status: service: No Current occupational status: retired History of recent travel: No Current gender identity: Female Course Vital Signs: Vital signs: Vital Signs Temperature 97.4 F L 01/14/22 08:50 Pulse Rate 112 H 01/14/22 13:11 Respiratory Rate 25 H 01/14/22 13:11 Blood Pressure 170/98 01/14/22 14:33 Pulse Oximetry 94 01/14/22 14:30 Oxygen Delivery Me thod 01/14/22 11:45 MDM - General Adult Medical Decision Making Patient is a 81-year-old female comes to the ED with malaise. Patient has a history of A. fib, COPD, hypertension and CHF. Patient states that for the past couple days she just has not felt good. She denies any chest pain and cannot pinpoint exactly why she does not feel good. She endorses having some shortness of breath over the past couple days as well. Patient's heart rate bounces around between upper 90s to 115. Blood pressure is elevated at 194/118. Rest of her vitals are stable. CBC and CMP were unremarkable. Troponins negative. EKG showed A. fib but no ST segment elevation or depression seen. Digoxin level was 0.3 and BNP was 3700 which is increased from 2435. Chest x-ray showed no acute findings. I talked with Dr. Avery about patient case and he recommended giving patient some Cardizem here in the ED and discharging her home with a new prescription for 180 mg of diltiazem daily. Patient was given meds and dose of hydralazine and her blood pressure went down to 170/98. She was stable for discharge home and diagnosed with A. fib and hypertension. She was discharged home with a new prescription for diltiazem 180 mg and told to stop taking her previously prescribed diltiazem of 120 mg. Return ED precautions given. Follow-up with her PCP within the next 3 to 5 days for reevaluation. Patient understood and agreed with plan. Chart reviewed and patient discussed with midlevel. Agree with assessment and la ibanez. Lab Data : 01/14/22 09:40 01/14/22 09:40 Radiology Impressions Chest X-Ray 01/14/22 08:57 IMPRESSION: 1. Pulmonary hyperinflation which may indicate obstructive lung disease. No acute pulmonary finding. 2. Mild cardiac enlargement unchanged. Laboratory Results WBC 7.2 10^3/uL (4.0-10.0) 01/14/22 09:40 RBC 4.83 10^6/uL (4.1-5.3) 01/14/22 09:40 Hgb 14.5 g/dL (11.5-15.3) 01/14/22 09:40 Hct 44.2 % (37.0-47.0) 01/14/22 09:40 MCV 91.5 fl (81-99) 01/14/22 09:40 MCH 30.0 pg (28.0-34.0) 01/14/22 09:40 MCHC 32.8 g/dL (30.0-36.0) 01/14/22 09:40 RDW 13.0 % (12.1-15.1) 01/14/22 09:40 Plt Count 216 10^3/cmm (130-400) 01/14/22 09:40 MPV 9.4 fL (7.4-10.4) 01/14/22 09:40 Neut % (Auto) 74.9 % 01/14/22 09:40 Lymph % (Auto) 14.6 % 01/14/22 09:40 [place] % (Auto) 8.4 % 01/14/22 09:40 Eos % (Auto) 1.2 % 01/14/22 09:40 Baso % (Auto) 0.6 % 01/14/22 09:40 Neut # (Auto) 5.42 10^3/uL (1.8-7.7) 01/14/22 09:40 Lymph # (Auto) 1.1 10^3/uL (0.8-4.8) 01/14/22 09:40 [place] # (Auto) 0.6 10^3/uL (0.2-0.9) 01/14/22 09:40 Eos # (Auto) 0.1 10^3/uL (0.0-0.8) 01/14/22 09:40 Baso # (Auto) 0.0 10^3/uL (0.0-0.1) 01/14/22 09:40 Nucleated RBC % (auto) 0 % 01/14/22 09:40 Nucleated RBCs # 0.0 /100WBC 01/14/22 09:40 Sodium 141 mmol/L (136-145) 01/14/22 09:40 Potassium 4.0 mmol/L (3.5-5.1) 01/14/22 09:40 Chloride 104 mmol/L (98-107) 01/14/22 09:40 Carbon Dioxide 25 mmol/L (22-29) 01/14/22 09:40 Anion Gap 16.0 (5-19) 01/14/22 09:40 BUN 10 mg/dL (8-23) 01/14/22 09:40 Creatinine 0.8 mg/dL (0.5-0.9) 01/14/22 09:40 GFR Calculation Not Reportable 01/14/22 09:40 Glucose 112 mg/dL (65-115) 01/14/22 09:40 Calculated Osmolality 292 mOsm/kg (285-295) 01/14/22 09:40 Calcium 10.0 mg/dL (8.5-10.5) 01/14/22 09:40 Total Bilirubin 0.7 mg/dL (0.15-1.2) 01/14/22 09:40 AST 19 U/L (0-32) 01/14/22 09:40 ALT 11 U/L (0-33) 01/14/22 09:40 Alkaline Phosphatase 73 U/L (35-105) 01/14/22 09:40 Troponin T Baseline 22 ng/L (0-10) H 01/14/22 09:40 Troponin T 120 Minute 21.18 ng/L (0-10) H 01/14/22 11:44 Delta Troponin T -0.82 ABS# (0-10) L 01/14/22 11:44 NT-Pro-B Natriuret Pep 3700 pg/mL (0-450) H 01/14/22 09:40 Total Protein 7.0 g/dL (6.6-8.7) 01/14/22 09:40 Albumin 4.7 g/dL (3.5-5.2) 01/14/22 09:40 Globulin 2.3 g/dL (1.3-4.6) 01/14/22 09:40 Urine Color Yellow (Yellow) 01/14/22 09:14 Urine Appearance Clear (CLEAR) 01/14/22 09:14 Urine pH 8 (5-7) H 01/14/22 09:14 Ur Specific Mason 1.015 (1.005-1.030) 01/14/22 09:14 Urine Protein Neg (Negative) 01/14/22 09:14 Urine Glucose (UA) Norm (Normal) 01/14/22 09:14 Urine Ketones Negative (Negative) 01/14/22 09:14 Urine Blood Neg (Negative) 01/14/22 09:14 Urine Nitrate Negative (Negative) 01/14/22 09:14 Urine Bilirubin Neg (Negative) 01/14/22 09:14 Urine Urobilinogen Norm mg/dL (Negative) 01/14/22 09:14 Ur Leukocyte Esterase 2+ (Negative) H 01/14/22 09:14 Urine RBC 0-4 /hpf (0-2) H 01/14/22 09:14 Urine WBC 0-4 /hpf (0-5) H 01/14/22 09:14 Ur Squamous Epith Cells 0-4 /hpf (0-5) H 01/14/22 09:14 Amorphous Sediment Not Reportable 01/14/22 09:14 Urine Bacteria 4+ /hpf (NONE) H 01/14/22 09:14 Digoxin 0.3 ng/mL (0.6-1.2) L 01/14/22 09:40 EKG Data EKG 1: Computer generated interpretation: Chest X-Ray 01/14/22 08:57 IMPRESSION: 1. Pulmonary hyperinflation which may indicate obstructive lung disease. No acute pulmonary finding. 2. Mild cardiac enlargement unchanged. Discharge Plan Discharge Patient Disposition: Home Clinical Impression: Hypertension A-fib Qualifiers: Atrial fibrillation type: unspecified Qualified Code(s): I48.91 - Unspecified atrial fibrillation Condition: Stable Prescriptions: New diltiazem HCl 180 mg capsule,extended release 24 hr 180 mg PO DAILY Qty: 30 0RF Discontinued diltiazem HCl 120 mg capsule,extended release 24 hr 120 mg PO DAILY Qty: 30 0RF No Action Anoro Ellipta 62.5-25 mcg/actuation blister with device 1 inh inhalation Q24H levothyroxine 88 mcg tablet 88 mcg PO DAILY digoxin 125 mcg (0.125 mg) tablet 125 mcg PO DAILY Eliquis 5 mg tablet 5 mg PO BID furosemide 40 mg tablet 20 mg PO DAILY gabapentin 600 mg tablet 600 mg PO TID loratadine 10 mg tablet 10 mg PO DAILY Myrbetriq 50 mg tablet extended release 24 hr 50 mg PO Q24H furosemide 10 mg/mL solution 40 mg IM ONCE Qty: 4 0RF ceftriaxone 1 gram recon soln 2 g IM ONCE Qty: 1 0RF promethazine [Phenergan] 25 mg/mL solution 25 mg IM ONCE Qty: 1 0RF ondansetron 8 mg tablet,disintegrating 8 mg PO Q8H PRN (Reason: nausea and vomiting) Qty: 21 0RF nitrofurantoin monohyd/m-cryst [Macrobid] 100 mg capsule 100 mg PO Q12H 10 Days Qty: 20 0RF Rx Instructions: must administer with a meal/food trazodone 50 mg Tablet 25 - 50 mg PO BEDTIME PRN (Reason: Sleep) pravastatin 20 mg Tablet 20 mg PO DAILY hydroxyzine pamoate 25 mg Capsule 25 mg PO BEDTIME PRN (Reason: Anxiety) duloxetine [Cymbalta] 60 mg Capsule,Delayed Release(Dr/Ec) 60 mg PO DAILY cholecalciferol (vitamin D3) 1,250 mcg (50,000 unit) capsule 50,000 unit PO Q7D Rx Instructions: (ON SUNDAYS) hydrocodone-acetaminophen 10-325 mg tablet 1 tab PO Q8H PRN (Reason: Pain) donepezil 10 mg tablet 10 mg PO DAILY Thermotabs 287-180-15 mg Tablet 1 tab PO DAILY albuterol sulfate [Ventolin HFA] 90 mcg/actuation Hfa Aerosol Inhaler 2 puff INHALATION Q4H PRN (Reason: Shortness Of Breath) fluticasone propionate [Flonase Allergy Relief] 50 mcg/actuation [place],Suspension 1 - 2 spray INTRANASAL DAILY PRN (Reason: Nasal Congestion) nitroglycerin 0.4 mg tablet, sublingual 0.4 mg SUBLINGUAL Q5M PRN (Reason: chest pain) Qty: 30 0RF Rx Instructions: do not exceed 3 doses per episode pantoprazole 40 mg Tablet,Delayed Release (Dr/Ec) 40 mg PO DAILY potassium chloride 20 mEq Tablet Extended Release 20 meq PO 5XD amlodipine 10 mg Tablet 10 mg PO DAILY lisinopril 10 mg tablet 10 mg PO BID montelukast 10 mg Tablet 10 mg PO DAILY tizanidine 2 mg Capsule 2 mg PO BID PRN (Reason: Spasms) triamcinolone acetonide 0.1 % ointment 1 applic topical TID PRN (Reason: Rash) Discharge Orders: Discharge ED (Routine); Ordered 01/14/22 Ordered By: Arvind Encarnacion Referrals: aRdha Martinez MD [Primary Care Provider] - Discharge Diet: Regular Discharge Activity: Increase activity as tolerated Patient Instructions: A-fib (Atrial Fibrillation) (ED) Activity Restrictions/Additional Instructions: Follow-up with medical provider as directed in the next 3 to 5 days for reevaluation.. Take medications as prescribed. You can stop taking your previously prescribed 120 mg diltiazem and start taking the new prescription sent home with you for 180 mg diltiazem daily. Return to the ER or your medical provider if condition worsens. Please read and understand discharge instructions. Thank you for choosing [facility] for your healthcare needs today. Please realize this is an emergency room and that we are providing you with a medical screening exam and this may not be complete and all inclusive of all the testing and or work up that you may need to determine your ailment or severity of your illness. It is very important that you follow up as instructed or that you return to the Emergency Department should you have concerns or if your condition changes or worsens in any way. Coding Level of Care Code ED Crystal Calibrator for Juan F Fwzoie Exam Comprehensive
[2022-01-14 09:42] LABS: Urine Appearance Clear (CLEAR); Urine Color Yellow (Yellow)
[2022-01-14 09:43] LABS: Bilirubin Urine Neg (Negative); Blood Urine Neg (Negative); Glucose Urine UA Norm (Normal); Ketones Urine Negative (Negative); Nitrate Urine Negative (Negative); Protein Urine Neg (Negative); Specific Gravity, Urine 1.015 (1.005-1.030); Urobilinogen Urine Norm (Negative); pH Urine 8 (5-7)
[2022-01-14 09:44] LABS: Add Urine Microscopic? YES; Leukocyte Esterase Urine 2+ (Negative)
[2022-01-14 09:45] LABS: Bacteria Urine 4+ /hpf; Squamous Epithelial Cell Urine 0-4 /hpf (0-5)
[2022-01-14 09:46] LABS: Add Urine Culture? Yes; RBC Urine 0-4 /hpf (0-2); WBC Urine 0-4 /hpf (0-5)
[2022-01-14 09:55] LABS: Basophils % 0.6 %; Eosinophils # 0.1 10^3/uL (0.0-0.8); Eosinophils % 1.2 %; Hematocrit 44.2 % (37.0-47.0); Hemoglobin 14.5 g/dL (11.5-15.3); Lymphocytes # 1.1 10^3/uL (0.8-4.8); Lymphocytes % 14.6 %; Mean Corpuscular HGB Conc 32.8 g/dL (30.0-36.0); Mean Corpuscular Volume 91.5 fl (81-99); Mean Platelet Volume 9.4 fL (7.4-10.4); Monocytes # 0.6 10^3/uL (0.2-0.9); Monocytes % 8.4 %; Neutrophils # 5.42 10^3/uL (1.8-7.7); Neutrophils % 74.9 %; Nucleated Red Blood Cells % 0 %; Platelet Count 216 10^3/cmm (130-400); Red Blood Count 4.83 10^6/uL (4.1-5.3); White Blood Count 7.2 10^3/uL (4.0-10.0)
[2022-01-14 10:24] LABS: Troponin(5th) Baseline 22 ng/L (0-10)
[2022-01-14 10:32] LABS: Alanine Aminotransferase 11 U/L (0-33); Albumin Level 4.7 g/dL (3.5-5.2); Alkaline Phosphatase 73 U/L (35-105); Aspartate Amino Transferase 19 U/L (0-32); Blood Urea Nitrogen 10 mg/dL (8-23); Carbon Dioxide 25 mmol/L (22-29); Chloride 104 mmol/L (98-107); Globulin 2.3 g/dL (1.3-4.6); Glucose 112 mg/dL (65-115); NT Pro B Type Natriuretic Pept 3700 pg/mL (0-450); Osmolality Calculated 292 mOsm/kg (285-295); Sodium 141 mmol/L (136-145); Total Bilirubin 0.7 mg/dL (0.15-1.2)
[2022-01-14] MEDS: acetaminophen 500 mg Tablet 1000 MG PO (11:43)
[2022-01-14] MEDS: hyDRALAzine 25 mg Tablet PO (11:44)
--- NOTE | 2022-01-14 12:03 | ECG_ITS ---
[facility] Test Date: 2022-01-14 Pat Name: Arielle Vneces Department: Room: Gender: Female Secretary Administrative Assistant: : 1940 Requested By: Arvind Encarnacion Order Number: [id number] Reba MD: Vidal Christopher M.D. Measurements Intervals [place] Rate: 96 P: [place]: QRS: -79 QRSD: 91 T: 71 QT: 356 QTc: 451 Interpretive Statements ATRIAL FIBRILLATION INCOMPLETE RIGHT BUNDLE BRANCH BLOCK [90+ ms QRS DURATION, TERMINAL R IN V1/V2, 40+ ms S IN I/aVL/V4/V5/V6] LEFT ANTERIOR FASCICULAR BLOCK [QRS AXIS <= -45, QR IN I, RS IN II] ANTEROSEPTAL MYOCARDIAL INFARCTION , PROBABLY OLD [40+ ms Q WAVE IN V1-V4] Compared to ECG 01/14/2022 09:23:11 No significant changes Electronically Signed On 01-15-2022 0:25:21 CDT by Vidal Christopher M.D. [id number]
[2022-01-14 12:18] LABS: Troponin 5 2HR 21.18 ng/L (0-10)
[2022-01-14 12:26] LABS: Troponin 5 2HR Delta -0.82 ABS# (0-10)
[2022-01-14 13:12] LABS: Digoxin 0.3 ng/mL (0.6-1.2)
[2022-01-14] MEDS: dilTIAZem 60 mg Tablet 90 MG PO (13:38)
== END 2022-01-14 14:56 | disposition home or self-care (01) ==
PROVIDERS: Emergency Provider Physician Assistant; PCP Family Medicine
DX: I48.91 Unspecified atrial fibrillation (principal); Z79.01 Long term (current) use of anticoagulants; J44.9 Chronic obstructive pulmonary disease, unspecified; I11.0 Hypertensive heart disease with heart failure; I50.22 Chronic systolic (congestive) heart failure; E78.2 Mixed hyperlipidemia
CPT/HCPCS: 71045; 80053; 80162; 81001; 83880; 84484; 85025; 87086; 93005; 99285

== ENCOUNTER → 2022-01-15 13:22 | Outpatient (BNVA) | payer MEDICARE, MEDICAID, SELFPAY | PROVIDERS: PCP Family Medicine; Visit Provider Nurse Practitioner Family | DX: N39.0 Urinary tract infection, site not specified (principal); R11.10 Vomiting, unspecified; R19.7 Diarrhea, unspecified; R11.0 Nausea; I50.9 Heart failure, unspecified; R79.89 Other specified abnormal findings of blood chemistry | CPT/HCPCS: 87086 ==

== ENCOUNTER 2022-01-28 08:56 | Outpatient (CLI) | payer MEDICARE, MEDICAID, SELFPAY ==
--- NOTE | 2022-01-28 09:07 | CT_ITS ---
WS: [id number] CT CHEST WITHOUT INTRAVENOUS CONTRAST HISTORY: PULMONARY NODULE/COPD TECHNIQUE: Contiguous 5 mm axial imaging performed on the thorax. Coronal and sagittal reformats are submitted. All CT scans at [facility] use at least one of these dose optimization techniques: automated exposure control; mA and/or kV adjustment per patient size (includes targeted exams where dose is matched to clinical indication); or iterative reconstruction. CONTRAST: None DLP: 678.67 mGy.cm COMPARISON: 09/09/2019 Lungs and central airway: Mildly hyperexpanded lungs. There are a few small scattered micronodules. N o nodules greater than 3 mm. No mass. The previously described groundglass attenuation has resolved. Pleura: Normal. No pleural effusion. Heart and pericardium: Markedly enlarged heart. LEFT atrial enlargement with a diameter of 7 cm. No p ericardial effusion. Mediastinum and abe: No mediastinum or hilar adenopathy. Vessels: Mild atherosclerosis aorta. Mildly ectatic aorta. Mild enlargement of the pulmonary artery. Chest wall and lower neck: No soft tissue masses. Upper abdomen: Atherosclerosis aorta. Small hiatal hernia. Splenic granulomata. Osseous structures: Mild increase in the upper thoracic kyphosis. No destructive bone lesions. Deform ity in the upper sternal body may be from an old fracture with healing. CT/CT chest wo con [id number] IMPRESSION: 1. No mass or suspicious nodules. 2. Interval resolution of the previously described 1 breast attenuation since 09/09/2019. 3. Marked enlargement of the heart. LEFT atrial enlargement 7 cm in diameter. 4. COPD.
== END 2022-01-28 08:57 | disposition home or self-care (01) ==
LOC: RAD 08:57
PROVIDERS: PCP Internal Medicine; Visit Provider Internal Medicine
DX: R91.1 Solitary pulmonary nodule (principal); J44.9 Chronic obstructive pulmonary disease, unspecified
CPT/HCPCS: 71250

== ENCOUNTER 2022-03-24 13:02 | Outpatient (CLI) | payer MEDICARE, MEDICAID, SELFPAY ==
--- NOTE | 2022-03-24 13:09 | US_ITS ---
WS: [id number] ULTRASOUND SOFT TISSUES bilateral cervical chains. HISTORY: R59.0 - Localized enlarged lymph nodes COMPARISON: None available. TECHNIQUE: 2-D and color Doppler imaging is submitted. Ultrasound is directed along the cervical chains. Benign bilateral cervical chain lymph nodes. Larges t lymph node along the RIGHT cervical chain measures 1.1 x 1.3 x 0.7 cm. No enlarged lymph nodes or a denopathy. US/US soft tissue head neck [id number] IMPRESSION: Benign bilateral cervical chain lymph nodes.
== END 2022-03-24 13:03 | disposition home or self-care (01) ==
LOC: RAD 13:03
PROVIDERS: PCP Internal Medicine; Visit Provider Nurse Practitioner Family
DX: R59.0 Localized enlarged lymph nodes (principal)
CPT/HCPCS: 76536

== ENCOUNTER → 2022-04-08 11:18 | Outpatient (BNVA) | payer MEDICARE, MEDICAID, SELFPAY | PROVIDERS: PCP Internal Medicine; Visit Provider Nurse Practitioner Family | DX: R05.9 Cough, unspecified (principal); Z20.822 Contact with and (suspected) exposure to COVID-19 | CPT/HCPCS: 87400; 87426 ==

== ENCOUNTER 2022-04-15 11:06 | Emergency (ER) | payer MEDICARE, MEDICAID, SELFPAY ==
[2022-04-15 11:16] VITALS: BP 142/85; PULSE 84; RESP 16; TEMP 36.3; O2SAT 96
--- NOTE | 2022-04-15 11:24 | ED_ITS ---
HPI - Weakness General: Chief complaint: Weakness Stated complaint: SOB, Cough, Fever Time Seen by Provider: 04/15/22 11:24 History of Present Illness: Ms. Vences is a 81-year-old lady with history of CHF, atrial fibrillation, hypertension, hyperlipidemia, arterial disease presenting to the emergency department for generalized illness. She reports onset of symptoms approximately 10 days ago with congestion, cough with green productive sputum, fevers and was initially diagnosed with pneumonia. She was treated with a course of antibiotics however despite this is continued to worse n. She endorses generalized malaise and now notes abdominal pain and chest discomfort. She reports dyspnea on exertion. Intensity symptoms is moderate to severe. No other specific changes in health, exacerbating, or alleviating factors identified. Onset (ago): week(s) Duration: progressively worsening Location: generalized Migration: none Severity: moderate Relieving factors: none Exacerbating factors: exertion Context: recent illness Review of Systems General: Reports: 10 or more systems reviewed and unremarkable except in HPI and below PFSH ED PFSH: Medical History Anal fissure Atrial fibrillation with RVR Chronic back pain Chronic systolic (congestive) heart failure COPD (chronic obstructive pulmonary disease) COVID Essential hypertension History of colon polyps Lymphedema of both lower extremities Mixed hyperlipidemia Surgical History History of bladder surgery History of colonoscopy years ago History of hysterectomy Family History Sister Stroke CAD (coronary artery disease) [place] @ 75 Hypertension Brother Cancer Father Cancer Social History Smoking and tobacco status: never smoked Second hand smoke exposure: No Smoking risk assessment/counseling performed?: No Alcohol intake: never Desire information about alcohol rehabilitation?: No Counseling given: No Desire information about substance/drug rehabilitation?: No Counseling given: No Adopted: No Caregiver/support person: No Lives independently: Yes Household members: spouse Housing: House Marital status: service: No Current occupational status: retired History of recent travel: No Current gender identity: Female Physical Exam Const: COMMON NORMALS: patient oriented x3 and alert GENERAL APPEARANCE: cooperative, well developed and ill appearing (Mildly) HENMT: COMMON NORMALS: normocephalic and atraumatic HEAD & SCALP: normocephalic and atraumatic Eye: COMMON NORMALS: conjunctivae normal CONJUNCTIVA: Yes conjunctivae normal SCLERA: sclerae normal Neck/C-Spine: COMMON NORMALS: supple GENERAL: Yes trachea midline Resp: COMMON NORMALS: clear to auscultation bilaterally EFFORT & INSPECTI ON: Yes able to speak in complete sentences AUSCULTATION: clear to auscultation bilaterally Cardio: COMMON NORMALS: regular rate RATE: regular rate RHYTHM: abnormal rhythm irregularly irregular GI: COMMON NORMALS: Soft to palpation PALPATION: Yes Soft to palpation, Yes Tenderness to palpation present (GI), No Guarding due to palpation present (GI) and No Rigid due to palpation Extremity: GENERAL: Yes normal exam except as noted and No edema Neuro: COMMON NORMALS: patient oriented x3, CN's II-XII intact bilaterally, moves all extremities, no focal motor deficits and no sensory deficits noted SENSORIUM/ORIENTATION: Yes alert and No Orientation impaired Psych: COMMON NORMALS: mental status grossly normal and Normal thought process present THOUGHT PROCESS: Normal thought process present Course Vital Signs: Vital signs: Vital Signs Temperature 97.4 F L 04/15/22 11:16 Pulse Rate 82 04/15/22 15:48 Respiratory Rate 18 04/15/22 15:48 Blood Pressure 122/79 04/15/22 15:48 Pulse Oximetry 93 04/15/22 15:48 Oxygen Delivery Me thod 04/15/22 15:48 MDM - Weakness Medical Decision Making 81-year-old lady presenting with continued respiratory symptoms and generalized illness. Exam as above. EKG notable for atrial fibrillation, similar to prior, no STEMI. Labs notable for leukocytosis which is mildly worse than previous, similar hemoglobin and platelet count. Metabolic panel with similar findings perhaps mild dehydration. Negative range 2-hour delta troponin. Prior labs reviewed including recent labs. Negative rapid viral studies. Normal procalcitonin. Chest x-ray with no lobar consolidation or pneumothorax, somewhat COPD findings. Given reported symptoms and symptoms despite treatment I believe that CT imaging is appropriate. CT demonstrates essentially no acute finding to explain patient's symptoms. Patient feels improved with DuoNeb, steroids, and fluids. She is not in respiratory distress and not requiring supplemental oxygen. The most likely cause of patient symptoms is COPD exacerbation with inadequate length of prior treatment for symptom control. I will plan to repeat treatment. The results of ED evaluation were discussed with the patient including prescriptions and/or symptomatic cares (if applicable) including appropriate and responsible use, followup plan, and return precautions. The patient verbalized understanding and felt safe for discharge. Medical Records I reviewed the patient's medical records. Lab Data I reviewed the patient's lab results. 04/15/22 11:30 04/15/22 11:30 Radiology Impressions Chest X-Ray 04/15/22 11:33 IMPRESSION: 1. Pulmonary hyperinflation which might indicate COPD. No acute process noted. Chest/Abdomen/Pelvis CT 04/15/22 12:29 IMPRESSION: 1. No acute chest findings. No acute pulmonary infiltrates. 2. No acute findings in the abdomen or pelvis. 3. Mild diffuse fatty infiltration liver. 4. Small esophageal hiatal hernia. 5. 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 6. Sigmoid diverticulosis. No evidence of acute diverticulitis. 7. Prior hysterectomy. 8. No other suspicious findings. Laboratory Results WBC 16.6 10^3/uL (4.0-10.0) H 04/15/22 11:30 RBC 5.32 10^6/uL (4.1-5.3) H 04/15/22 11:30 Hgb 15.7 g/dL (11.5-15.3) H 04/15/22 11:30 Hct 48.8 % (37.0-47.0) H 04/15/22 11:30 MCV 91.7 fl (81-99) 04/15/22 11:30 MCH 29.5 pg (28.0-34.0) 04/15/22 11:30 MCHC 32.2 g/dL (30.0-36.0) 04/15/22 11:30 RDW 13.1 % (12.1-15.1) 04/15/22 11:30 Plt Count 375 10^3/cmm (130-400) 04/15/22 11:30 MPV 9.2 fL (7.4-10.4) 04/15/22 11:30 Neut % (Auto) 90.5 % 04/15/22 11:30 Lymph % (Auto) 4.3 % 04/15/22 11:30 [place] % (Auto) 3.7 % 04/15/22 11:30 Eos % (Auto) 0.8 % 04/15/22 11:30 Baso % (Auto) 0.2 % 04/15/22 11:30 Neut # (Auto) 14.96 10^3/uL (1.8-7.7) H 04/15/22 11:30 Lymph # (Auto) 0.7 10^3/uL (0.8-4.8) L 04/15/22 11:30 [place] # (Auto) 0.6 10^3/uL (0.2-0.9) 04/15/22 11:30 Eos # (Auto) 0.1 10^3/uL (0.0-0.8) 04/15/22 11:30 Baso # (Auto) 0.0 10^3/uL (0.0-0.1) 04/15/22 11:30 Nucleated RBC % (auto) 0 % 04/15/22 11:30 Nucleated RBCs # 0.0 /100WBC 04/15/22 11:30 Sodium 136 mmol/L (136-145) 04/15/22 11:30 Potassium 4.0 mmol/L (3.5-5.1) 04/15/22 11:30 Chloride 98 mmol/L (98-107) 04/15/22 11:30 Carbon Dioxide 26 mmol/L (22-29) 04/15/22 11:30 Anion Gap 16.0 (5-19) 04/15/22 11:30 BUN 17 mg/dL (8-23) 04/15/22 11:30 Creatinine 0.8 mg/dL (0.5-0.9) 04/15/22 11:30 GFR Calculation Not Reportable 04/15/22 11:30 Glucose 112 mg/dL (65-115) 04/15/22 11:30 Calculated Osmolality 284 mOsm/kg (285-295) L 04/15/22 11:30 Calcium 9.5 mg/dL (8.5-10.5) 04/15/22 11:30 Magnesium 2.2 mg/dL (1.7-2.3) 04/15/22 11:30 Total Bilirubin 0.6 mg/dL (0.15-1.2) 04/15/22 11:30 AST 16 U/L (0-32) 04/15/22 11:30 ALT 10 U/L (0-33) 04/15/22 11:30 Alkaline Phosphatase 82 U/L (35-105) 04/15/22 11:30 Troponin T Baseline 20 ng/L (0-10) H 04/15/22 11:30 Troponin T 120 Minute 16.23 ng/L (0-10) H 04/15/22 13:16 Delta Troponin T -3.77 ABS# (0-10) L 04/15/22 13:16 C-Reactive Protein 3.5 mg/L (0.0-4.9) 04/15/22 11:30 NT-Pro-B Natriuret Pep 1295 pg/mL (0-450) H 04/15/22 11:30 Total Protein 7.6 g/dL (6.6-8.7) 04/15/22 11:30 Albumin 4.7 g/dL (3.5-5.2) 04/15/22 11:30 Globulin 2.9 g/dL (1.3-4.6) 04/15/22 11:30 Procalcitonin 0.03 ng/mL (0-0.5) 04/15/22 11:30 TSH 1.64 uIU/mL (0.27-4.20) 04/15/22 11:30 Urine Color Yellow (Yellow) 04/15/22 12:39 Urine Appearance Hazy (CLEAR) A 04/15/22 12:39 Urine pH 6 (5-7) 04/15/22 12:39 Ur Specific [place] 1.020 (1.005-1.030) 04/15/22 12:39 Urine Protein Neg (Negative) 04/15/22 12:39 Urine Glucose (UA) Norm (Normal) 04/15/22 12:39 Urine Ketones Negative (Negative) 04/15/22 12:39 Urine Blood 2+ (Negative) H 04/15/22 12:39 Urine Nitrate Negative (Negative) 04/15/22 12:39 Urine Bilirubin Neg (Negative) 04/15/22 12:39 Urine Urobilinogen 1 mg/dL (Negative) H 04/15/22 12:39 Ur Leukocyte Esterase 2+ (Negative) H 04/15/22 12:39 Urine RBC 0-4 /hpf (0-2) H 04/15/22 12:39 Urine WBC 5-10 /hpf (0-5) H 04/15/22 12:39 Ur Squamous Epith Cells 5-10 /hpf (0-5) H 04/15/22 12:39 Ur Transition Epith Cell 0-4 /hpf 04/15/22 12:39 Amorphous Sediment Not Reportable 04/15/22 12:39 Urine Bacteria 2+ /hpf (NONE) H 04/15/22 12:39 Digoxin 0.6 ng/mL (0.6-1.2) 04/15/22 11:30 Influenza Type A Ag negative (Negative) 04/15/22 12:31 Influenza Type B Ag negative (Negative) 04/15/22 12:31 SARS-CoV-2 Ag (Rapid) negative (Negative) 04/15/22 12:31 Discharge Plan Discharge Patient Disposition: Home Clinical Impression: Afib, Malaise and fatigue, Leukocytosis, History of pneumonia Condition: Stable Prescriptions: New prednisone 5 mg tablet See Rx Instructions .ROUTE .COMPLEX Qty: 36 0RF Rx Instructions: prednisone 5 mg: take 8 tablets (40 mg) on Day 1; 7 tablets (35 mg) on Day 2; then decrease by 1 tablet every day until finished No Action Anoro Ellipta 62.5-25 mcg/actuation blister with device 1 inh inhalation Q24H levothyroxine 88 mcg tablet 88 mcg PO DAILY digoxin 125 mcg (0.125 mg) tablet 125 mcg PO DAILY Eliquis 5 mg tablet 5 mg PO BID furosemide 40 mg tablet 20 mg PO DAILY gabapentin 600 mg tablet 600 mg PO TID loratadine 10 mg tablet 10 mg PO DAILY Myrbetriq 50 mg tablet extended release 24 hr 50 mg PO Q24H ondansetron 8 mg tablet,disintegrating 8 mg PO Q8H PRN (Reason: nausea and vomiting) Qty: 21 0RF nitrofurantoin monohyd/m-cryst [Macrobid] 100 mg capsule 100 mg PO Q12H 10 Days Qty: 20 0RF Rx Instructions: must administer with a meal/food prednisone 20 mg tablet 20 mg PO BID Qty: 10 0RF levofloxacin 500 mg tablet 500 mg PO DAILY Qty: 7 0RF albuterol sulfate [ProAir HFA] 90 mcg/actuation HFA aerosol inhaler 2 puff inhalation QID PRN (Reason: shortness of breath or wheezing) Qty: 6.7 5RF trazodone 50 mg Tablet 25 - 50 mg PO BEDTIME PRN (Reason: Sleep) pravastatin 20 mg Tablet 20 mg PO DAILY hydroxyzine pamoate 25 mg Capsule 25 mg PO BEDTIME PRN (Reason: Anxiety) duloxetine [Cymbalta] 60 mg Capsule,Delayed Release(Dr/Ec) 60 mg PO DAILY cholecalciferol (vitamin D3) 1,250 mcg (50,000 unit) capsule 50,000 unit PO Q7D Rx Instructions: (ON SUNDAYS) hydrocodone-acetaminophen 10-325 mg tablet 1 tab PO Q8H PRN (Reason: Pain) donepezil 10 mg tablet 10 mg PO DAILY Thermotabs 287-180-15 mg Tablet 1 tab PO DAILY albuterol sulfate [Ventolin HFA] 90 mcg/actuation Hfa Aerosol Inhaler 2 puff INHALATION Q4H PRN (Reason: Shortness Of Breath) fluticasone propionate [Flonase Allergy Relief] 50 mcg/actuation [place],Suspension 1 - 2 spray INTRANASAL DAILY PRN (Reason: Nasal Congestion) nitroglycerin 0.4 mg tablet, sublingual 0.4 mg SUBLINGUAL Q5M PRN (Reason: chest pain) Qty: 30 0RF Rx Instructions: do not exceed 3 doses per episode pantoprazole 40 mg Tablet,Delayed Release (Dr/Ec) 40 mg PO DAILY potassium chloride 20 mEq Tablet Extended Release 20 meq PO 5XD prednisone 50 mg tablet 50 mg PO DAILY 5 Days Qty: 5 0RF levofloxacin 750 mg tablet 750 mg PO Q24H 14 Days Qty: 14 0RF amlodipine 10 mg Tablet 10 mg PO DAILY lisinopril 10 mg tablet 10 mg PO BID montelukast 10 mg Tablet 10 mg PO DAILY tizanidine 2 mg Capsule 2 mg PO BID PRN (Reason: Spasms) triamcinolone acetonide 0.1 % ointment 1 applic topical TID PRN (Reason: Rash) diltiazem HCl 180 mg capsule,extended release 24 hr 180 mg PO DAILY Qty: 30 0RF ondansetron 4 mg tablet,disintegrating 4 mg PO Q8H PRN (Reason: nausea and vomiting) Qty: 15 0RF Discharge Orders: Discharge ED (Routine); Ordered 04/15/22 Ordered By: Louis Farmer Referrals: Alison Ramos MD [Primary Care Provider] - Discharge Diet: Usual diet Discharge Activity: Increase activity as tolerated Patient Instructions: A-fib (Atrial Fibrillation) (ED), Pneumonia (ED) Activity Restrictions/Additional Instructions: Thank you for visiting the emergency department. You were seen and evaluated for generalized illness. The exact cause of your symptoms is unclear though may be related to incompletely treated pneumonia and/or not long enough course of steroids. Please follow-up with your primary care provider. Please continue your other medications. Return to the emergency department for worsening symptoms or anything else that you are concerned about a feel needs emergency department evaluation. Coding Level of Care Code ED Hardboard Grinder for Chg Fwd Exam Comprehensive
--- NOTE | 2022-04-15 11:33 | XR_ITS ---
WS: [id number] Exam: XR chest 1V portable [id number] Date/Time of Exam: 04/15/2022 11:37 AM Reason For Exam: cp Comparison 01/14/2022. The lungs are fully inflated and clear. Heart size top limits normal. No pleural effusions. Regional bony elements are intact. The mediastinum is normal in contour. Hyperinflation noted which might antonio diana COPD. XR/XR chest 1V portable [id number] IMPRESSION: 1. Pulmonary hyperinflation which might indicate COPD. No acute process noted.
--- NOTE | 2022-04-15 11:36 | ECG_ITS ---
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 Measurements Intervals [place] Rate: 92 P: 0 MO: 0 QRS: -77 QRSD: 102 T: 68 QT: 377 QTc: 467 Interpretive Statements ATRIAL FIBRILLATION WITH ABERRANT CONDUCTION OR VENTRICULAR PREMATURE COMPLEXES LEFT ANTERIOR FASCICULAR BLOCK [QRS AXIS <= -45, QR IN I, RS IN II] POSSIBLE ANTERIOR MYOCARDIAL INFARCTION , PROBABLY OLD [30 ms Q WAVE IN V3/V4, OR R < 0.2 mV IN V4] Compared to ECG 01/14/2022 12:03:37 Ventricular premature complex(es) now present Aberrant conduction of supraventricular beat(s) now present Incomplete right bundle-branch block no longer present Myocardial infarct finding still present Electronically Signed On 04-15-2022 14:51:37 GINGER FARMER by Tremayne Hermosillo M.D. [email or web address]/[id number]
[2022-04-15 11:40] LABS: Basophils % 0.2 %; Eosinophils # 0.1 10^3/uL (0.0-0.8); Eosinophils % 0.8 %; Hematocrit 48.8 % (37.0-47.0); Hemoglobin 15.7 g/dL (11.5-15.3); Lymphocytes # 0.7 10^3/uL (0.8-4.8); Lymphocytes % 4.3 %; Mean Corpuscular HGB Conc 32.2 g/dL (30.0-36.0); Mean Corpuscular Hemoglobin 29.5 pg (28.0-34.0); Mean Corpuscular Volume 91.7 fl (81-99); Mean Platelet Volume 9.2 fL (7.4-10.4); Monocytes # 0.6 10^3/uL (0.2-0.9); Monocytes % 3.7 %; Neutrophils # 14.96 10^3/uL (1.8-7.7); Neutrophils % 90.5 %; Nucleated Red Blood Cells % 0 %; Platelet Count 375 10^3/cmm (130-400); Red Blood Count 5.32 10^6/uL (4.1-5.3); Red Cell Distribution Width 13.1 % (12.1-15.1); White Blood Count 16.6 10^3/uL (4.0-10.0)
[2022-04-15 12:01] LABS: Troponin(5th) Baseline 20 ng/L (0-10)
[2022-04-15 12:09] VITALS: PULSE 78; O2SAT 94
[2022-04-15 12:09] LABS: NT Pro B Type Natriuretic Pept 1295 pg/mL (0-450); Procalcitonin 0.03 ng/mL (0-0.5); Thyroid Stimulating Hormone 1.64 uIU/mL (0.27-4.20)
[2022-04-15 12:19] VITALS: BP 130/73
[2022-04-15 12:22] LABS: Alanine Aminotransferase 10 U/L (0-33); Albumin Level 4.7 g/dL (3.5-5.2); Alkaline Phosphatase 82 U/L (35-105); Aspartate Amino Transferase 16 U/L (0-32); Blood Urea Nitrogen 17 mg/dL (8-23); C Reactive Protein 3.5 mg/L (0.0-4.9); Calcium 9.5 mg/dL (8.5-10.5); Carbon Dioxide 26 mmol/L (22-29); Chloride 98 mmol/L (98-107); Globulin 2.9 g/dL (1.3-4.6); Glucose 112 mg/dL (65-115); Magnesium 2.2 mg/dL (1.7-2.3); Osmolality Calculated 284 mOsm/kg (285-295); Sodium 136 mmol/L (136-145); Total Bilirubin 0.6 mg/dL (0.15-1.2); Total Protein 7.6 g/dL (6.6-8.7)
--- NOTE | 2022-04-15 12:29 | CT_ITS ---
WS: [id number] CT CHEST, ABDOMEN, AND PELVIS TECHNIQUE: Contrast-enhanced CT of the chest, abdomen, and pelvis with coronal and sagittal reformatt ed images. CLINICAL INFORMATION: cp, productive cough, mid/epigastric pain, leukocytosis COMPARISON: CT CHEST 01/28/22 CT abdomen pelvis February 16, 2021 DLP: 971.[address] scans at [facility] use at least one of these dose optimization techniques: automated e xposure control; mA and/or kV adjustment per patient size (includes targeted exams where dose is matc hed to clinical indication); or iterative reconstruction. CT CHEST: Mild chronic emphysematous changes. No focal pneumonia or pleural fluid. No acute pulmonary infiltrates. Ectatic ascending thoracic aorta measuring 3.9 cm appears unchanged. Proximal main pulm onary arteries are normal. No axillary lymphadenopathy. No mediastinal or hilar lymphadenopathy. Stable 6 mm nodule RIGHT lower lobe along the diaphragm. A few calcified granulomas. Cardiomegaly with LEFT atrial enlargement. . CT ABDOMEN AND PELVIS: Diffuse fatty infiltration liver. Normal portal vein and splenic vein. Splenic granulomas. Normal pancreatic parenchymal enhancement. Common bile duct tapers normally distally at the pancreatic head. Common bile duct measures approximately 6 mm unchanged from 2020. Small esophage al hiatal hernia. Adrenal glands are normal. Normal renal parenchymal enhancement. No hydronephrosis. Evidence of prior hysterectomy. Sigmoid diverticulosis. No evidence of acute diverticulitis. Tiny fat -containing umbilical hernia. Mild spondylitic changes lumbar spine. 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 Chronic focal ce liac dissection is unchanged. SMA is patent. CT/CT chest abd pel w con* IMPRESSION: 1. No acute chest findings. No acute pulmonary infiltrates. 2. No acute findings in the abdomen or pelvis. 3. Mild diffuse fatty infiltration liver. 4. Small esophageal hiatal hernia. 5. 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 6. Sigmoid diverticulosis. No evidence of acute diverticulitis. 7. Prior hysterectomy. 8. No other suspicious findings.
[2022-04-15 12:48] VITALS: BP 129/79
[2022-04-15] MEDS: iohexol 350 mg/mL 500 mL Btl (per mL) IV (12:48)
[2022-04-15 12:59] LABS: Influenza A by IFA negative (Negative); Influenza B by IFA negative (Negative); SARS Covid-2 Antigen negative (Negative)
[2022-04-15 13:02] LABS: Urine Appearance Hazy (CLEAR); Urine Color Yellow (Yellow)
[2022-04-15 13:03] LABS: Add Urine Microscopic? YES; Bilirubin Urine Neg (Negative); Blood Urine 2+ (Negative); Glucose Urine UA Norm (Normal); Ketones Urine Negative (Negative); Leukocyte Esterase Urine 2+ (Negative); Nitrate Urine Negative (Negative); Protein Urine Neg (Negative); Urobilinogen Urine 1 mg/dL (Negative); pH Urine 6 (5-7)
[2022-04-15 13:04] LABS: RBC Urine 0-4 /hpf (0-2)
[2022-04-15 13:05] LABS: Add Urine Culture? Yes; Bacteria Urine 2+ /hpf; Transitional Epi Cells Urine 0-4 /hpf
[2022-04-15 13:30] LABS: Digoxin 0.6 ng/mL (0.6-1.2)
--- NOTE | 2022-04-15 13:34 | ECG_ITS ---
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 Measurements Intervals [place] Rate: 90 P: 0 [place]: 0 QRS: -77 QRSD: 100 T: 72 QT: 380 QTc: 467 Interpretive Statements ATRIAL FIBRILLATION LEFT ANTERIOR FASCICULAR BLOCK [QRS AXIS <= -45, QR IN I, RS IN II] POSSIBLE ANTERIOR MYOCARDIAL INFARCTION , PROBABLY OLD [30 ms Q WAVE IN V3/V4, OR R < 0.2 mV IN V4] Compared to ECG 04/15/2022 11:36:27 Ventricular premature complex(es) no longer present Aberrant conduction of supraventricular beat(s) no longer present Myocardial infarct finding still present Electronically Signed On 04-15-2022 14:52:29 CUSTOMER CARE SPECIALIST by Tremayne Hermosillo M.D. [email or web address]/store/[id number]
[2022-04-15 13:40] LABS: Troponin 5 2HR 16.23 ng/L (0-10)
[2022-04-15 13:41] LABS: Troponin 5 2HR Delta -3.77 ABS# (0-10)
[2022-04-15] MEDS: sodium chloride 0.9% 1,000 ML 999 ML IV (13:43)
--- NOTE | 2022-04-15 14:13 | PC.NURSE ---
Right AC IV infiltrated, IV dc'd with catheter intact
[2022-04-15] MEDS: ipratropium 0.5 mg/2.5 mL Neb INHALATION (14:15)
[2022-04-15] MEDS: albuterol 2.5 mg/3 mL Neb INHALATION (14:15)
[2022-04-15 14:17] VITALS: PULSE 100; RESP 16; O2SAT 95
[2022-04-15] MEDS: dilTIAZem 5 mg/mL SDV 5 mL 15 MG IVP (14:36)
[2022-04-15 15:48] VITALS: BP 122/79; PULSE 82; RESP 18; O2SAT 93
== END 2022-04-15 16:15 | disposition home or self-care (01) ==
PROVIDERS: Emergency Provider Emergency Medicine; PCP Internal Medicine
DX: I48.91 Unspecified atrial fibrillation (principal); R53.81 Other malaise; R53.83 Other fatigue; D72.829 Elevated white blood cell count, unspecified; Z79.01 Long term (current) use of anticoagulants; Z20.822 Contact with and (suspected) exposure to COVID-19; I11.0 Hypertensive heart disease with heart failure; I50.22 Chronic systolic (congestive) heart failure; J44.9 Chronic obstructive pulmonary disease, unspecified; I10 Essential (primary) hypertension; E78.2 Mixed hyperlipidemia
CPT/HCPCS: 36415; 71045; 71260; 74177; 80053; 80162; 81001; 83735; 83880; 84145; 84443; 84484; 85025; 86140; 87040; 87086; 87426; 87804; 93005; 94640; 96361; 96374; 96375; 99285; J2930; J3490; J7030; J7613; J7644; Q9967

== ENCOUNTER 2022-04-20 12:00 | Emergency (ER) | payer MEDICARE, MEDICAID, SELFPAY ==
[2022-04-20 12:09] VITALS: BP 120/72; PULSE 106; RESP 18; TEMP 36.3; O2SAT 96
--- NOTE | 2022-04-20 12:16 | ECG_ITS ---
[facility] Test Date: 2022-04-20 Pat Name: Arielle Vences Department: Room: Gender: Female Part Time: : 1940 Requested By: Jemma Keen Order Number: [id number] Reading MD: Tremayne Hermosillo M.D. Measurements Intervals [place] Rate: 99 P: 0 GA: 0 QRS: -78 QRSD: 79 T: 48 QT: 326 QTc: 419 Interpretive Statements ATRIAL FIBRILLATION POSSIBLE RIGHT VENTRICULAR CONDUCTION DELAY [RSR (QR) IN V1/V2] LEFT ANTERIOR FASCICULAR BLOCK [QRS AXIS <= -45, QR IN I, RS IN II] PROBABLE SEPTAL MYOCARDIAL INFARCTION , OF INDETERMINATE AGE [35 ms Q WAVE IN V1/V2] Compared to ECG 04/15/2022 13:15:52 No significant changes Electronically Signed On 04-20-2022 21:41:47 SKID WRAPPER by Tremayne Hermosillo M.D. [id number]
[2022-04-20 12:55] LABS: Basophils % 0.1 %; Eosinophils % 0.2 %; Hemoglobin 15.4 g/dL (11.5-15.3); Lymphocytes # 0.6 10^3/uL (0.8-4.8); Lymphocytes % 3.4 %; Mean Corpuscular HGB Conc 32.8 g/dL (30.0-36.0); Mean Corpuscular Volume 91.6 fl (81-99); Mean Platelet Volume 9.2 fL (7.4-10.4); Monocytes # 0.6 10^3/uL (0.2-0.9); Monocytes % 3.4 %; Neutrophils # 16.91 10^3/uL (1.8-7.7); Neutrophils % 92.4 %; Nucleated Red Blood Cells % 0 %; Platelet Count 340 10^3/cmm (130-400); Red Blood Count 5.13 10^6/uL (4.1-5.3); Red Cell Distribution Width 13.2 % (12.1-15.1); White Blood Count 18.3 10^3/uL (4.0-10.0)
[2022-04-20 13:24] LABS: Alanine Aminotransferase 9 U/L (0-33); Albumin Level 4.3 g/dL (3.5-5.2); Alkaline Phosphatase 78 U/L (35-105); Anion Gap 14.9 (5-19); Aspartate Amino Transferase 12 U/L (0-32); Blood Urea Nitrogen 17 mg/dL (8-23); Calcium 9.7 mg/dL (8.5-10.5); Carbon Dioxide 24 mmol/L (22-29); Chloride 100 mmol/L (98-107); Globulin 2.9 g/dL (1.3-4.6); Glucose 131 mg/dL (65-115); Lipase 27 U/L (13-60); Osmolality Calculated 283 mOsm/kg (285-295); Potassium 3.9 mmol/L (3.5-5.1); Sodium 135 mmol/L (136-145); Total Bilirubin 0.8 mg/dL (0.15-1.2); Total Protein 7.2 g/dL (6.6-8.7)
[2022-04-20 13:25] LABS: Lactic Sepsis W/Reflex 1.5 mmol/L (0.5-2.2); Troponin(5th) Baseline 17 ng/L (0-10)
--- NOTE | 2022-04-20 14:16 | ED_ITS ---
HPI - Abdominal Pain General: Chief Complaint: Abdominal Pain Stated Complaint: abd pain Time Seen by Provider: 04/20/22 14:13 History of Present Illness: Patient is a 81-year-old female who comes to the ED with abdominal pain. Symptoms started approximately 3 weeks ago. She rates her abdominal pain a 5 out of 10 and is episodic. She describes it as the feeling of getting punched in the stomach. It is located in the periumbilical region. She has been able to eat and drink normally and is keeping p.o. food and fluids down. Denies any chest pain, shortness of breath, nausea or vomiting. She is having normal daily bowel movements. Associated Symptoms: Denies chills, constipation, diarrhea, dysuria, fever(s), hematochezia, hematuria, nausea and vomiting Review of Systems Const: Denies: fever(s), chills or fatigue Eyes: Denies: change in vision or eye discomfort ENMT: Denies: throat pain, odynophagia, nasal discharge or nasal congestion Card: Denies: chest pain, palpitations, edema, swelling of feet/ankles, dyspnea on exertion or orthopnea Resp: Denies: dyspnea, productive cough or non-productive cough GI: Reports: abdominal pain; Denies: nausea, vomiting, diarrhea, constipation or hematochezia : Denies: flank pain, dysuria or hematuria Musc: Denies: neck pain, back pain or extremity swelling Skin/Breast: Denies: rash or new lesions Neuro: Denies: headache(s), numbness in extremities or weakness in extremities PFSH ED PFSH: Medical History Anal fissure Atrial fibrillation with RVR Chronic back pain Chronic systolic (congestive) heart failure COPD (chronic obstructive pulmonary disease) COVID Essential hypertension History of colon polyps Lymphedema of both lower extremities Mixed hyperlipidemia Surgical History History of bladder surgery History of colonoscopy years ago History of hysterectomy Family History Sister Stroke CAD (coronary artery disease) PR @ 75 Hypertension Brother Cancer Father Cancer Social History Smoking and tobacco status: never smoked Second hand smoke exposure: No Smoking risk assessment/counseling performed?: No Alcohol intake: never Desire information about alcohol rehabilitation?: No Counseling given: No Desire information about substance/drug rehabilitation?: No Counseling given: No Adopted: No Caregiver/support person: No Lives independently: Yes Household members: spouse Housing: House Marital status: service: No Current occupational status: retired History of recent travel: No Current gender identity: Female Physical Exam Const: COMMON NORMALS: patient oriented x3 and alert GENERAL APPEARANCE: cooperative HENMT: COMMON NORMALS: normocephalic HEAD & SCALP: normocephalic MOUTH: Normal oral and palatal mucosa present THROAT: posterior oropharynx normal and uvula midline Neck/C-Spine: COMMON NORMALS: supple GENERAL: Yes normal visual inspection Resp: COMMON NORMALS: normal respiratory effort, No retractions, No use of accessory muscles and clear to auscultation bilaterally AUSCULTATION: clear to auscultation bilaterally Cardio: COMMON NORMALS: regular rate, regular rhythm, S1 normal heart sound present, S2 normal heart sound present, No gallops present (Cardio), No clicks present (Cardio), No murmurs present (Cardio) and Peripheral pulses 2+ throughout RATE: regular rate RHYTHM: regular rhythm HEART SOUNDS: S1 normal heart sound present and S2 normal heart sound present PERIPHERAL PULSES: Peripheral pulses 2+ throughout GI: COMMON NORMALS: Normal to inspection, nondistended, normoactive bowel sounds present, Soft to palpation and no masses PALPATION: Yes Soft to palpation and Yes Tenderness to palpation present (GI) Details: other (Periumbilical tenderness) : COMMON NORMALS: Yes no CVA tenderness BLADDER/KIDNEY EXAM: Yes no CVA tenderness Back/Pelvis: COMMON NORMALS: no CVA tenderness Extremity: COMMON NORMALS: normal to inspection Neuro: COMMON NORMALS: patient oriented x3 SENSORIUM/ORIENTATION: Yes alert GAIT: Yes Normal gait present Skin: GENERAL SKIN EXAM: dry skin Course Vital Signs: Vital signs: Vital Signs Temperature 97.4 F L 04/20/22 12:09 Pulse Rate 89 04/20/22 17:19 Respiratory Rate 16 04/20/22 17:19 Blood Pressure 115/89 04/20/22 17:19 Pulse Oximetry 95 04/20/22 17:19 Oxygen Delivery Me thod 04/20/22 12:09 MDM - Abdominal Pain Medical Decision Making Patient is a 81-year-old female comes to the ED with abdominal pain. She has been having the symptoms now for the past 3 weeks. Vitals are stable. She has some tenderness to the periumbilical region of abdomen but rest of exam is benign. White blood cell count of 18.3 but the rest of CBC and CMP were unremarkable. CT abdomen pelvis showed no acute findings. Lactic 1.5. EKG showed A. fib with rate control at 89 bpm no other acute findings. Troponins were negative. Patient was given some IV morphine and her pain improved. She was diagnosed with abdominal pain and was stable for discharge home. Told to follow-up with PCP in the next week for reevaluation. Strict return to ED precautions given. Patient understood and agreed with plan. Lab Data I reviewed the patient's lab results. 04/20/22 12:45 04/20/22 12:45 Labs/Radiology: Radiology Impressions Abdomen/Pelvis CT 04/20/22 14:22 IMPRESSION: No acute findings within the abdomen or pelvis. Laboratory Results WBC 18.3 10^3/uL (4.0-10.0) H 04/20/22 12:45 RBC 5.13 10^6/uL (4.1-5.3) 04/20/22 12:45 Hgb 15.4 g/dL (11.5-15.3) H 04/20/22 12:45 Hct 47.0 % (37.0-47.0) 04/20/22 12:45 MCV 91.6 fl (81-99) 04/20/22 12:45 MCH 30.0 pg (28.0-34.0) 04/20/22 12:45 MCHC 32.8 g/dL (30.0-36.0) 04/20/22 12:45 RDW 13.2 % (12.1-15.1) 04/20/22 12:45 Plt Count 340 10^3/cmm (130-400) 04/20/22 12:45 MPV 9.2 fL (7.4-10.4) 04/20/22 12:45 Neut % (Auto) 92.4 % 04/20/22 12:45 Lymph % (Auto) 3.4 % 04/20/22 12:45 Bent % (Auto) 3.4 % 04/20/22 12:45 Eos % (Auto) 0.2 % 04/20/22 12:45 Baso % (Auto) 0.1 % 04/20/22 12:45 Neut # (Auto) 16.91 10^3/uL (1.8-7.7) H 04/20/22 12:45 Lymph # (Auto) 0.6 10^3/uL (0.8-4.8) L 04/20/22 12:45 Bent # (Auto) 0.6 10^3/uL (0.2-0.9) 04/20/22 12:45 Eos # (Auto) 0.0 10^3/uL (0.0-0.8) 04/20/22 12:45 Baso # (Auto) 0.0 10^3/uL (0.0-0.1) 04/20/22 12:45 Nucleated RBC % (auto) 0 % 04/20/22 12:45 Nucleated RBCs # 0.0 /100WBC 04/20/22 12:45 Sodium 135 mmol/L (136-145) L 04/20/22 12:45 Potassium 3.9 mmol/L (3.5-5.1) 04/20/22 12:45 Chloride 100 mmol/L (98-107) 04/20/22 12:45 Carbon Dioxide 24 mmol/L (22-29) 04/20/22 12:45 Anion Gap 14.9 (5-19) 04/20/22 12:45 BUN 17 mg/dL (8-23) 04/20/22 12:45 Creatinine 0.8 mg/dL (0.5-0.9) 04/20/22 12:45 GFR Calculation Not Reportable 04/20/22 12:45 Glucose 131 mg/dL (65-115) H 04/20/22 12:45 Calculated Osmolality 283 mOsm/kg (285-295) L 04/20/22 12:45 Lactic Acid 1.5 mmol/L (0.5-2.2) 04/20/22 12:45 Calcium 9.7 mg/dL (8.5-10.5) 04/20/22 12:45 Total Bilirubin 0.8 mg/dL (0.15-1.2) 04/20/22 12:45 AST 12 U/L (0-32) 04/20/22 12:45 ALT 9 U/L (0-33) 04/20/22 12:45 Alkaline Phosphatase 78 U/L (35-105) 04/20/22 12:45 Troponin T Baseline 17 ng/L (0-10) H 04/20/22 12:45 Troponin T 120 Minute 14.36 ng/L (0-10) H 04/20/22 15:40 Delta Troponin T -2.64 ABS# (0-10) L 04/20/22 15:40 Total Protein 7.2 g/dL (6.6-8.7) 04/20/22 12:45 Albumin 4.3 g/dL (3.5-5.2) 04/20/22 12:45 Globulin 2.9 g/dL (1.3-4.6) 04/20/22 12:45 Lipase 27 U/L (13-60) 04/20/22 12:45 EKG Data EKG 1: EKG interpretation date: 04/20/22 Interpretation: A. fib with rate controlled, [address] segment elevation or depression seen. Discharge Plan Discharge Patient Disposition: Home Clinical Impression: Abdominal pain Qualifiers: Abdominal location: periumbilical Qualified Code(s): R10.33 - Periumbilical pain Condition: Stable Prescriptions: New ondansetron 4 mg tablet,disintegrating 4 mg PO Q8H PRN (Reason: nausea and vomiting) Qty: 15 0RF No Action Anoro Ellipta 62.5-25 mcg/actuation blister with device 1 inh inhalation Q24H levothyroxine 88 mcg tablet 88 mcg PO DAILY digoxin 125 mcg (0.125 mg) tablet 125 mcg PO DAILY Eliquis 5 mg tablet 5 mg PO BID furosemide 40 mg tablet 20 mg PO DAILY gabapentin 600 mg tablet 600 mg PO TID loratadine 10 mg tablet 10 mg PO DAILY Myrbetriq 50 mg tablet extended release 24 hr 50 mg PO Q24H ondansetron 8 mg tablet,disintegrating 8 mg PO Q8H PRN (Reason: nausea and vomiting) Qty: 21 0RF nitrofurantoin monohyd/m-cryst [Macrobid] 100 mg capsule 100 mg PO Q12H 10 Days Qty: 20 0RF Rx Instructions: must administer with a meal/food prednisone 20 mg tablet 20 mg PO BID Qty: 10 0RF levofloxacin 500 mg tablet 500 mg PO DAILY Qty: 7 0RF albuterol sulfate [ProAir HFA] 90 mcg/actuation HFA aerosol inhaler 2 puff inhalation QID PRN (Reason: shortness of breath or wheezing) Qty: 6.7 5RF trazodone 50 mg Tablet 25 - 50 mg PO BEDTIME PRN (Reason: Sleep) pravastatin 20 mg Tablet 20 mg PO DAILY hydroxyzine pamoate 25 mg Capsule 25 mg PO BEDTIME PRN (Reason: Anxiety) duloxetine [Cymbalta] 60 mg Capsule,Delayed Release(Dr/Ec) 60 mg PO DAILY cholecalciferol (vitamin D3) 1,250 mcg (50,000 unit) capsule 50,000 unit PO Q7D Rx Instructions: (ON SUNDAYS) hydrocodone-acetaminophen 10-325 mg tablet 1 tab PO Q8H PRN (Reason: Pain) donepezil 10 mg tablet 10 mg PO DAILY Thermotabs 287-180-15 mg Tablet 1 tab PO DAILY albuterol sulfate [Ventolin HFA] 90 mcg/actuation Hfa Aerosol Inhaler 2 puff INHALATION Q4H PRN (Reason: Shortness Of Breath) fluticasone propionate [Flonase Allergy Relief] 50 mcg/actuation [place],Suspension 1 - 2 spray INTRANASAL DAILY PRN (Reason: Nasal Congestion) nitroglycerin 0.4 mg tablet, sublingual 0.4 mg SUBLINGUAL Q5M PRN (Reason: chest pain) Qty: 30 0RF Rx Instructions: do not exceed 3 doses per episode pantoprazole 40 mg Tablet,Delayed Release (Dr/Ec) 40 mg PO DAILY potassium chloride 20 mEq Tablet Extended Release 20 meq PO 5XD amlodipine 10 mg Tablet 10 mg PO DAILY lisinopril 10 mg tablet 10 mg PO BID montelukast 10 mg Tablet 10 mg PO DAILY tizanidine 2 mg Capsule 2 mg PO BID PRN (Reason: Spasms) triamcinolone acetonide 0.1 % ointment 1 applic topical TID PRN (Reason: Rash) diltiazem HCl 180 mg capsule,extended release 24 hr 180 mg PO DAILY Qty: 30 0RF prednisone 5 mg tablet See Rx Instructions .ROUTE .COMPLEX Qty: 36 0RF Rx Instructions: prednisone 5 mg: take 8 tablets (40 mg) on Day 1; 7 tablets (35 mg) on Day 2; then decrease by 1 tablet every day until finished levofloxacin 750 mg tablet 750 mg PO Q24H 7 Days Qty: 7 0RF Discharge Orders: Discharge ED (Routine); Ordered 04/20/22 Ordered By: Arvind Encanracion Referrals: Alison Ramos MD [Primary Care Provider] - Discharge Diet: Regular Discharge Activity: Resume usual activity Patient Instructions: Abdominal Pain (ED) Activity Restrictions/Additional Instructions: Follow-up with medical provider as directed in the next 3 to 5 days for ree valuation. Continue taking all home medications as previously prescribed. Return to the ER or your medical provider if condition worsens. Please read and understand discharge instructions. Thank you for choosing [facility] for your healthcare needs today. Please realize this is an emergency room and that we are providing you with a medical screening exam and this may not be complete and all inclusive of all the testing and or work up that you may need to determine your ailment or severity of your illness. It is very important that you follow up as instructed or that you return to the Emergency Department should you have concerns or if your condition changes or worsens in any way. Coding Level of Care Code ED Engagement Manager for [facility] Exam Comprehensive
--- NOTE | 2022-04-20 14:16 | ECG_ITS ---
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 Measurements Intervals Jenners Rate: 89 P: 0 OK: 0 QRS: -78 QRSD: 100 T: 50 QT: 361 QTc: 440 Interpretive Statements ATRIAL FIBRILLATION PATTERN CONSISTENT WITH PULMONARY DISEASE INCOMPLETE RIGHT BUNDLE BRANCH BLOCK [90+ ms QRS DURATION, TERMINAL R IN V1/V2, 40+ ms S IN I/aVL/V4/V5/V6] LEFT ANTERIOR FASCICULAR BLOCK [QRS AXIS <= -45, QR IN I, RS IN II] SEPTAL MYOCARDIAL INFARCTION , OF INDETERMINATE AGE [40+ ms Q WAVE IN V1/V2] Compared to ECG 04/20/2022 12:51:56 Incomplete right bundle-branch block now present Myocardial infarct finding still present Electronically Signed On 04-20-2022 21:43:18 [employer]ARD [employer]W [employer] by Tremayne Hermosillo M.D. [id number]
--- NOTE | 2022-04-20 14:22 | CTR_ITS ---
PROCEDURE INFORMATION: Exam: CT Abdomen And Pelvis With Contrast Exam date and time: 04/20/2022 2:38 PM Age: 81 years old Clinical indication: Abdominal pain; Epigastric; Prior surgery; Surgery type: Hysto; Additional info: Periumbilical abdominal pain TECHNIQUE: Imaging protocol: Computed tomography of the abdomen and pelvis with contrast. Radiation optimization: All CT scans at this facility use at least one of these dose optimization techniques: automated exposure control; mA and/or kV adjustment per patient size (includes targeted exams where dose is matched to clinical indication); or iterative reconstruction. Contrast material: OMNI 350; Contrast volume: 100 ml; Contrast route: INTRAVENOUS (IV); Other protocol: This patient has received 2 known CTs and 0 known cardiac nuclear medicine studies in the 12 months prior to the current study. COMPARISON: CT chest abdpel w/*[id number] 04/15/2022 12:44 PM RADIATION DOSE METRICS: Total DLP (mGy-cm): 521.95 FINDINGS: Limitations: Assessment of the upper abdomen is somewhat limited due to motion artifact. Lungs: Lung bases are clear. Heart: Heart is enlarged. Liver: Mild fatty infiltration throughout the liver. No masses or enlargement detected. Gallbladder and bile ducts: Normal. No calcified stones. No ductal dilation. Pancreas: Normal. No ductal dilation. Spleen: Normal. No splenomegaly. Adrenal glands: Normal. No mass. Kidneys and ureters: Normal. No hydronephrosis. Stomach and bowel: Scattered diverticula large bowel without evidence of diverticulitis. Appendix: No evidence of acute appendicitis. Intraperitoneal space: Unremarkable. No free air. No significant fluid collection. Vasculature: Diffuse atherosclerotic changes of the abdominal aorta. No aortic aneurysm. Lymph nodes: Unremarkable. No enlarged lymph nodes. Urinary bladder: Unremarkable as visualized. Reproductive: Uterus has been removed. Bones/joints: Mild scoliosis with multilevel degenerative changes of the lumbar spine. Mild chronic compression fractures L1 and L2 vertebral bodies, unchanged. Soft tissues: Unremarkable. CT/CT abdomen pelvis w con* [id number] IMPRESSION: No acute findings within the abdomen or pelvis.
[2022-04-20] MEDS: iohexol 350 mg/mL 500 mL Btl (per mL) IV (14:43)
[2022-04-20] MEDS: lidocaine 2% viscous 15 ML, aluminum-mag hydrox-simethicon 30 ML, sucralfate oral liq 1 GM PO (16:25)
[2022-04-20 16:26] VITALS: RESP 16
[2022-04-20] MEDS: morphine 4 mg/mL SDV 1 mL IVP (16:26)
[2022-04-20 16:40] LABS: Troponin 5 2HR 14.36 ng/L (0-10)
[2022-04-20 16:48] LABS: Troponin 5 2HR Delta -2.64 ABS# (0-10)
[2022-04-20 17:19] VITALS: BP 115/89; PULSE 89; RESP 16; O2SAT 95
== END 2022-04-20 17:20 | disposition home or self-care (01) ==
PROVIDERS: Emergency Medicine; Emergency Provider Physician Assistant; PCP Internal Medicine
DX: R10.33 Periumbilical pain (principal); Z79.01 Long term (current) use of anticoagulants; J44.9 Chronic obstructive pulmonary disease, unspecified; I11.0 Hypertensive heart disease with heart failure; I50.22 Chronic systolic (congestive) heart failure; E78.2 Mixed hyperlipidemia
CPT/HCPCS: 36415; 74177; 80053; 83605; 83690; 84484; 85025; 93005; 96374; 99285; J2270; Q9967

== ENCOUNTER 2022-04-21 10:15 | Emergency (ER) | payer MEDICARE, MEDICAID, SELFPAY ==
[2022-04-21] VITALS (10 sets, daily range): BP systolic 111–169; BP diastolic 78–115; PULSE 87–113; RESP 16–22; TEMP 36.8; O2SAT 91–99
--- NOTE | 2022-04-21 11:02 | W.ED.SOB ---
HPI - SOB/Dyspnea General: Chief Complaint: Shortness of Breath/Dyspnea Stated Complaint: SOB/ GENERALIZED WEAKNESS Time Seen by Provider: 04/21/22 11:02 History of Present Illness: HPI Narrative: Ms. Vences is a 81-year-old lady with history of COPD, CHF, hypertension, hyperlipidemia, atrial fibrillation presenting to the emergency department for shortness of breath. She was diagnosed approximately 2 weeks ago with pneumonia and apparently treated though the patient is unsure of what medications. Despite this she still feels short of breath. The patient herself is a very poor historian and has difficulty articulating anything in particular about course, associated symptoms other than generalized malaise, intensity, exacerbating or alleviating factors. No other specific changes in health, exacerbating, or alleviating factors identified. Context: recent illness Timing: constant Severity: moderate Exacerbating factors: exertion Relieving factors: nothing Known history of: COPD and congestive heart failure Associated symptoms: Reports other Review of Systems General: Reports: 10 or more systems reviewed and unremarkable except in HPI and below PFSH ED PFSH: Medical History Anal fissure Atrial fibrillation with RVR Chronic back pain Chronic systolic (congestive) heart failure COPD (chronic obstructive pulmonary disease) COVID Essential hypertension History of colon polyps Lymphedema of both lower extremities Mixed hyperlipidemia Surgical History History of bladder surgery History of colonoscopy years ago History of hysterectomy Family History Sister Stroke CAD (coronary artery disease) [place] @ 75 Hypertension Brother Cancer Father Cancer Social History Smoking and tobacco status: never smoked Second hand smoke exposure: No Smoking risk assessment/counseling performed?: No Alcohol intake: never Desire information about alcohol rehabilitation?: No Counseling given: No Desire information about substance/drug rehabilitation?: No Counseling given: No Adopted: No Caregiver/support person: No Lives independently: Yes Household members: spouse Housing: House Marital status: service: No Current occupational status: retired History of recent travel: No Current gender identity: Female Physical Exam Const: COMMON NORMALS: alert GENERAL APPEARANCE: cooperative and well developed HENMT: COMMON NORMALS: normocephalic and atraumatic HEAD & SCALP: normocephalic and atraumatic Eye: COMMON NORMALS: conjunctivae normal CONJUNCTIVA: Yes conjunctivae normal SCLERA: sclerae normal Neck/C-Spine: COMMON NORMALS: supple GENERAL: Yes trachea midline Resp: COMMON NORMALS: clear to auscultation bilaterally EFFORT & INSPECTION: Yes able to speak in complete sentences AUSCULTATION: clear to auscultation bilaterally Cardio: COMMON NORMALS: regular rate and regular rhythm RATE: regular rate RHYTHM: regular rhythm GI: COMMON NORMALS: Soft to palpation PALPATION: Yes Soft to palpation and No Tenderness to palpation present (GI) Extremity: GENERAL: Yes normal exam except as noted and No edema Neuro: COMMON NORMALS: CN's II-XII intact bilaterally, moves all extremities, no focal motor deficits and no sensory deficits noted SENSORIUM/ORIENTATION: Yes alert and No Orientation impaired Psych: COMMON NORMALS: mental status grossly normal and Normal thought process present THOUGHT PROCESS: Normal thought process present Course Vital Signs: Vital signs: Vital Signs Temperature 98.3 F 04/21/22 10:23 Pulse Rate 87 04/21/22 17:13 Respiratory Rate 18 04/21/22 17:13 Blood Pressure 166/104 04/21/22 17:13 Pulse Oximetry 93 04/21/22 17:13 Oxygen Delivery Me thod 04/21/22 16:12 Oxygen Flow Rate 2 04/21/22 16:12 MDM - SOB/Dyspnea Medical Decision Making 81-year-old lady presenting due to shortness of breath and generalized illness. Exam as above. Patient is nontoxic in appearance. EKG notable for atrial fibrillation, narrow QRS and normal QTc, no STEMI. Rate is controlled. Labs notable for leukocytosis and mildly increased hemoglobin similar to prior. No significant electrolyte derangements aside from minimal hypokalemia, D-dimer is negative. Negative range 2-hour delta troponin. No UTI. Negative viral panel. Chest x-ray with no lobar consolidation or pneumothorax. Given patient provided history and exam CT is warranted. There is right lung and left lower lobe groundglass densities. Patient feels improved after DuoNeb, potassium replenishment, steroids, antibiotics. Most likely etiology of patient's symptoms is exacerbation of COPD. Oxygen requirement is baseline. Satisfactory for outpatient management. The results of ED evaluation were discussed with the patient including prescriptions and/or symptomatic cares (if applicable) including appropriate and responsible use, followup plan, and return precautions. The patient verbalized understanding and felt safe for discharge. Medical Records I reviewed the patient's medical records. Lab Data I reviewed the patient's lab results. 04/21/22 11:39 04/21/22 11:39 Labs/Radiology: Radiology Impressions Head CT 04/21/22 11:05 IMPRESSION: 1. No evidence of intracranial hemorrhage or mass effect. 2. Moderate small vessel changes with moderate parenchymal volume loss. 3. Chronic encephalomalacia in the LEFT frontal lobe unchanged. 4. No acute intracranial findings. Chest X-Ray 04/21/22 11:06 IMPRESSION: No acute findings. Chest CT 04/21/22 15:15 IMPRESSION: 1. No acute chest abnormalities. 2. Ground-glass interstitial densities seen in the right lung and left lower lobe. 3. Solitary gallstone 4. Otherwise negative examination Laboratory Results WBC 21.4 10^3/uL (4.0-10.0) H 04/21/22 11:39 RBC 5.28 10^6/uL (4.1-5.3) 04/21/22 11:39 Hgb 15.5 g/dL (11.5-15.3) H 04/21/22 11:39 Hct 47.4 % (37.0-47.0) H 04/21/22 11:39 MCV 89.8 fl (81-99) 04/21/22 11:39 MCH 29.4 pg (28.0-34.0) 04/21/22 11:39 MCHC 32.7 g/dL (30.0-36.0) 04/21/22 11:39 RDW 13.1 % (12.1-15.1) 04/21/22 11:39 Plt Count 283 10^3/cmm (130-400) 04/21/22 11:39 MPV 9.4 fL (7.4-10.4) 04/21/22 11:39 Neut % (Auto) 83.4 % 04/21/22 11:39 Lymph % (Auto) 7.9 % 04/21/22 11:39 [place] % (Auto) 7.9 % 04/21/22 11:39 Eos % (Auto) 0.1 % 04/21/22 11:39 Baso % (Auto) 0.1 % 04/21/22 11:39 Neut # (Auto) 17.81 10^3/uL (1.8-7.7) H 04/21/22 11:39 Lymph # (Auto) 1.7 10^3/uL (0.8-4.8) 04/21/22 11:39 [place] # (Auto) 1.7 10^3/uL (0.2-0.9) H 04/21/22 11:39 Eos # (Auto) 0.0 10^3/uL (0.0-0.8) 04/21/22 11:39 Baso # (Auto) 0.0 10^3/uL (0.0-0.1) 04/21/22 11:39 Nucleated RBC % (auto) 0 % 04/21/22 11:39 Nucleated RBCs # 0.0 /100WBC 04/21/22 11:39 D-Dimer <= 0.27 ug/mIFEU (0-0.59) 04/21/22 11:39 Sodium 136 mmol/L (136-145) 04/21/22 11:39 Potassium 3.4 mmol/L (3.5-5.1) L 04/21/22 11:39 Chloride 99 mmol/L (98-107) 04/21/22 11:39 Carbon Dioxide 24 mmol/L (22-29) 04/21/22 11:39 Anion Gap 16.4 (5-19) 04/21/22 11:39 BUN 12 mg/dL (8-23) 04/21/22 11:39 Creatinine 0.7 mg/dL (0.5-0.9) 04/21/22 11:39 GFR Calculation Not Reportable 04/21/22 11:39 Glucose 114 mg/dL (65-115) 04/21/22 11:39 Calculated Osmolality 283 mOsm/kg (285-295) L 04/21/22 11:39 Lactic Acid 1.3 mmol/L (0.5-2.2) 04/21/22 11:39 Calcium 9.4 mg/dL (8.5-10.5) 04/21/22 11:39 Total Bilirubin 0.8 mg/dL (0.15-1.2) 04/21/22 11:39 AST 11 U/L (0-32) 04/21/22 11:39 ALT 8 U/L (0-33) 04/21/22 11:39 Alkaline Phosphatase 72 U/L (35-105) 04/21/22 11:39 Troponin T Baseline 21 ng/L (0-10) H 04/21/22 11:39 Troponin T 120 Minute 20.52 ng/L (0-10) H 04/21/22 13:39 Delta Troponin T -0.48 ABS# (0-10) L 04/21/22 13:39 C-Reactive Protein 3.3 mg/L (0.0-4.9) 04/21/22 11:57 NT-Pro-B Natriuret Pep 2164 pg/mL (0-450) H 04/21/22 11:39 Total Protein 7.0 g/dL (6.6-8.7) 04/21/22 11:39 Albumin 4.3 g/dL (3.5-5.2) 04/21/22 11:39 Globulin 2.7 g/dL (1.3-4.6) 04/21/22 11:39 Procalcitonin 0.02 ng/mL (0-0.5) 04/21/22 11:57 Urine Color Yellow (Yellow) 04/21/22 13:20 Urine Appearance Hazy (CLEAR) A 04/21/22 13:20 Urine pH 6.5 (5-7) 04/21/22 13:20 Ur Specific [place] 1.015 (1.005-1.030) 04/21/22 13:20 Urine Protein Trace (Negative) 04/21/22 13:20 Urine Glucose (UA) Norm (Normal) 04/21/22 13:20 Urine Ketones 1+ (Negative) H 04/21/22 13:20 Urine Blood Neg (Negative) 04/21/22 13:20 Urine Nitrate Negative (Negative) 04/21/22 13:20 Urine Bilirubin Neg (Negative) 04/21/22 13:20 Urine Urobilinogen Norm mg/dL (Negative) 04/21/22 13:20 Ur Leukocyte Esterase Trace (Negative) H 04/21/22 13:20 Urine RBC None /hpf (0-2) 04/21/22 13:20 Urine WBC 0-4 /hpf (0-5) H 04/21/22 13:20 Ur Squamous Epith Cells 5-10 /hpf (0-5) H 04/21/22 13:20 Amorphous Sediment Not Reportable 04/21/22 13:20 Urine Bacteria 2+ /hpf (NONE) H 04/21/22 13:20 Digoxin 0.3 ng/mL (0.6-1.2) L 04/21/22 11:39 Coronavirus 229E (PCR) Not detected (NOT DETECT) 04/21/22 13:07 SARS-CoV-2 (PCR) Not detected (NOT DETECT) 04/21/22 13:07 Discharge Plan Discharge Patient Disposition: Home Clinical Impression: Acute exacerbation of chronic obstructive airways disease Condition: Stable Prescriptions: New levofloxacin 750 mg tablet 750 mg PO Q24H 14 Days Qty: 14 0RF No Action Anoro Ellipta 62.5-25 mcg/actuation blister with device 1 inh inhalation Q24H levothyroxine 88 mcg tablet 88 mcg PO DAILY digoxin 125 mcg (0.125 mg) tablet 125 mcg PO DAILY Eliquis 5 mg tablet 5 mg PO BID furosemide 40 mg tablet 20 mg PO DAILY gabapentin 600 mg tablet 600 mg PO TID loratadine 10 mg tablet 10 mg PO DAILY Myrbetriq 50 mg tablet extended release 24 hr 50 mg PO Q24H ondansetron 8 mg tablet,disintegrating 8 mg PO Q8H PRN (Reason: nausea and vomiting) Qty: 21 0RF nitrofurantoin monohyd/m-cryst [Macrobid] 100 mg capsule 100 mg PO Q12H 10 Days Qty: 20 0RF Rx Instructions: must administer with a meal/food prednisone 20 mg tablet 20 mg PO BID Qty: 10 0RF levofloxacin 500 mg tablet 500 mg PO DAILY Qty: 7 0RF albuterol sulfate [ProAir HFA] 90 mcg/actuation HFA aerosol inhaler 2 puff inhalation QID PRN (Reason: shortness of breath or wheezing) Qty: 6.7 5RF trazodone 50 mg Tablet 25 - 50 mg PO BEDTIME PRN (Reason: Sleep) pravastatin 20 mg Tablet 20 mg PO DAILY hydroxyzine pamoate 25 mg Capsule 25 mg PO BEDTIME PRN (Reason: Anxiety) duloxetine [Cymbalta] 60 mg Capsule,Delayed Release(Dr/Ec) 60 mg PO DAILY cholecalciferol (vitamin D3) 1,250 mcg (50,000 unit) capsule 50,000 unit PO Q7D Rx Instructions: (ON SUNDAYS) hydrocodone-acetaminophen 10-325 mg tablet 1 tab PO Q8H PRN (Reason: Pain) donepezil 10 mg tablet 10 mg PO DAILY Thermotabs 287-180-15 mg Tablet 1 tab PO DAILY albuterol sulfate [Ventolin HFA] 90 mcg/actuation Hfa Aerosol Inhaler 2 puff INHALATION Q4H PRN (Reason: Shortness Of Breath) fluticasone propionate [Flonase Allergy Relief] 50 mcg/actuation [place],Suspension 1 - 2 spray INTRANASAL DAILY PRN (Reason: Nasal Congestion) nitroglycerin 0.4 mg tablet, sublingual 0.4 mg SUBLINGUAL Q5M PRN (Reason: chest pain) Qty: 30 0RF Rx Instructions: do not exceed 3 doses per episode pantoprazole 40 mg Tablet,Delayed Release (Dr/Ec) 40 mg PO DAILY potassium chloride 20 mEq Tablet Extended Release 20 meq PO 5XD amlodipine 10 mg Tablet 10 mg PO DAILY lisinopril 10 mg tablet 10 mg PO BID montelukast 10 mg Tablet 10 mg PO DAILY tizanidine 2 mg Capsule 2 mg PO BID PRN (Reason: Spasms) triamcinolone acetonide 0.1 % ointment 1 applic topical TID PRN (Reason: Rash) diltiazem HCl 180 mg capsule,extended release 24 hr 180 mg PO DAILY Qty: 30 0RF prednisone 5 mg tablet See Rx Instructions .ROUTE .COMPLEX Qty: 36 0RF Rx Instructions: prednisone 5 mg: take 8 tablets (40 mg) on Day 1; 7 tablets (35 mg) on Day 2; then decrease by 1 tablet every day until finished ondansetron 4 mg tablet,disintegrating 4 mg PO Q8H PRN (Reason: nausea and vomiting) Qty: 15 0RF Discharge Orders: Discharge ED (Routine); Ordered 04/21/22 Ordered By: Louis Farmer Referrals: Alison Ramos MD [Primary Care Provider] - Discharge Diet: Usual diet Discharge Activity: Increase activity as tolerated Activity Restrictions/Additional Instructions: Thank you for visiting the emergency department. You were seen and evaluated for shortness of breath and generalized malaise. The exact cause of your symptoms is unclear though may be related to still exacerbation of underlying lung disease. I will extend treatment. I will prescribe steroids and antibiotics. Please also use your albuterol metered-dose inhaler 2 puffs every 4 hours for 24 hours followed by 2 puffs every 6 hours for 24 hours followed by 2 puffs every 8 hours for 24 hours and then return to the normal schedule. I will message case management for cardiology follow-up. Return to the emergency department for uncontrolled symptoms or anything else that you are concerned about a feel needs emergency department evaluation. Coding Level of Care Code ED Radiator Tester for Juan F Mckinney
--- NOTE | 2022-04-21 11:05 | CT_ITS ---
WS: [id number] CT HEAD TECHNIQUE: Noncontrast CT of the head obtained from the skullbase to the vertex. CLINICAL INFORMATION: ams COMPARISON: CT head 2019 DLP: 953.[address] scans at [facility] use at least one of these dose optimization techniques: automated e xposure control; mA and/or kV adjustment per patient size (includes targeted exams where dose is matc hed to clinical indication); or iterative reconstruction. FINDINGS: No evidence of intracranial hemorrhage or mass effect. Ventricular system and basal cisterns are pond nt. Moderate small vessel changes with moderate parenchymal volume loss. Chronic emphysematous malaci a in the LEFT frontal lobe unchanged. No extra-axial fluid collections. No evidence of mass or mass e ffect. Mild mucosal thickening in the ethmoid air cells. Mastoid air cells well aerated.. CT/CT head wo con* [id number] IMPRESSION: 1. No evidence of intracranial hemorrhage or mass effect. 2. Moderate small vessel changes with moderate parenchymal volume loss. 3. Chronic encephalomalacia in the LEFT frontal lobe unchanged. 4. No acute intracranial findings.
--- NOTE | 2022-04-21 11:06 | ECG_ITS ---
[facility] Test Date: 2022-04-21 Pat Name: Arielle Vences Department: Room: Gender: Female Venereal Disease Control Head: : 1940 Requested By: Louis Farmer Order Number: [id number] Reba MD: Tremayne Hermosillo M.D. Measurements Intervals [place] Rate: 89 P: 0 ND: 0 QRS: -86 QRSD: 98 T: 75 QT: 363 QTc: 442 Interpretive Statements ATRIAL FIBRILLATION WITH ABERRANT CONDUCTION OR VENTRICULAR PREMATURE COMPLEXES INCOMPLETE RIGHT BUNDLE BRANCH BLOCK [90+ ms QRS DURATION, TERMINAL R IN V1/V2, 40+ ms S IN I/aVL/V4/V5/V6] LEFT ANTERIOR FASCICULAR BLOCK [QRS AXIS <= -45, QR IN I, RS IN II] ANTEROSEPTAL MYOCARDIAL INFARCTION , OF INDETERMINATE AGE [40+ ms Q WAVE IN V1-V4] Compared to ECG 04/20/2022 15:04:11 Ventricular premature complex(es) now present Aberrant conduction of supraventricular beat(s) now present Myocardial infarct finding still present Electronically Signed On 04-21-2022 15:16:11 ARTILLERY SPECIALIST by Tremayne Hermosillo M.D. [id number]
--- NOTE | 2022-04-21 11:06 | XRR_ITS ---
PROCEDURE INFORMATION: Exam: XR Chest Exam date and time: 04/21/2022 11:18 AM Age: 81 years old Clinical indication: Shortness of breath; Additional info: SOB TECHNIQUE: Imaging protocol: Radiologic exam of the chest. Views: 1 view. COMPARISON: CT chest haliepel w/*[id number] 04/15/2022 12:44 PM FINDINGS: Lungs: Unremarkable. No consolidation. Pleural spaces: Unremarkable. No pleural effusion. No pneumothorax. Heart/Mediastinum: Unremarkable. No cardiomegaly. Bones/joints: Unremarkable. XR/XR chest 1V portable [id number] IMPRESSION: No acute findings.
[2022-04-21] MEDS: ipratropium 0.5 mg/2.5 mL Neb INHALATION (11:22)
[2022-04-21] MEDS: albuterol 2.5 mg/3 mL Neb INHALATION (11:22)
[2022-04-21 12:01] LABS: Basophils % 0.1 %; Eosinophils % 0.1 %; Hematocrit 47.4 % (37.0-47.0); Hemoglobin 15.5 g/dL (11.5-15.3); Lymphocytes # 1.7 10^3/uL (0.8-4.8); Lymphocytes % 7.9 %; Mean Corpuscular HGB Conc 32.7 g/dL (30.0-36.0); Mean Corpuscular Hemoglobin 29.4 pg (28.0-34.0); Mean Corpuscular Volume 89.8 fl (81-99); Mean Platelet Volume 9.4 fL (7.4-10.4); Monocytes # 1.7 10^3/uL (0.2-0.9); Monocytes % 7.9 %; Neutrophils # 17.81 10^3/uL (1.8-7.7); Neutrophils % 83.4 %; Nucleated Red Blood Cells % 0 %; Platelet Count 283 10^3/cmm (130-400); Red Blood Count 5.28 10^6/uL (4.1-5.3); Red Cell Distribution Width 13.1 % (12.1-15.1); White Blood Count 21.4 10^3/uL (4.0-10.0)
[2022-04-21 12:21] LABS: Lactic Sepsis W/Reflex 1.3 mmol/L (0.5-2.2)
[2022-04-21 12:22] LABS: Digoxin 0.3 ng/mL (0.6-1.2)
[2022-04-21 12:24] LABS: Troponin(5th) Baseline 21 ng/L (0-10)
[2022-04-21 12:34] LABS: Alanine Aminotransferase 8 U/L (0-33); Albumin Level 4.3 g/dL (3.5-5.2); Alkaline Phosphatase 72 U/L (35-105); Anion Gap 16.4 (5-19); Aspartate Amino Transferase 11 U/L (0-32); Blood Urea Nitrogen 12 mg/dL (8-23); Calcium 9.4 mg/dL (8.5-10.5); Carbon Dioxide 24 mmol/L (22-29); Chloride 99 mmol/L (98-107); Globulin 2.7 g/dL (1.3-4.6); Glucose 114 mg/dL (65-115); NT Pro B Type Natriuretic Pept 2164 pg/mL (0-450); Osmolality Calculated 283 mOsm/kg (285-295); Potassium 3.4 mmol/L (3.5-5.1); Sodium 136 mmol/L (136-145); Total Bilirubin 0.8 mg/dL (0.15-1.2)
[2022-04-21 12:36] LABS: C Reactive Protein 3.3 mg/L (0.0-4.9)
[2022-04-21 12:44] LABS: Procalcitonin 0.02 ng/mL (0-0.5)
--- NOTE | 2022-04-21 13:06 | ECG_ITS ---
[facility] Test Date: 2022-04-21 Pat Name: Arielle Vences Department: Room: Gender: Female Social Organization Professor: : 1940 Requested By: Louis Farmer Order Number: [id number] Reba MD: Tremayne Hermosillo M.D. Measurements Intervals [place] Rate: 86 P: 0 [place]: 0 QRS: -82 QRSD: 95 T: 73 QT: 359 QTc: 430 Interpretive Statements ATRIAL FIBRILLATION PATTERN CONSISTENT WITH PULMONARY DISEASE LEFT ANTERIOR FASCICULAR BLOCK [QRS AXIS <= -45, QR IN I, RS IN II] SEPTAL MYOCARDIAL INFARCTION , PROBABLY OLD [40+ ms Q WAVE IN V1/V2] Compared to ECG 04/21/2022 11:16:38 Ventricular premature complex(es) no longer present Aberrant conduction of supraventricular beat(s) no longer present Incomplete right bundle-branch block no longer present Myocardial infarct finding still present Electronically Signed On 04-21-2022 15:18:07 COMMUTATOR OPERATOR by Tremayne Hermosillo M.D. [id number]
[2022-04-21 14:11] LABS: Troponin 5 2HR 20.52 ng/L (0-10)
[2022-04-21 14:13] LABS: Troponin 5 2HR Delta -0.48 ABS# (0-10)
--- NOTE | 2022-04-21 14:18 | PC.NURSE ---
pt noted to AFIB on bedside payroll human resources assistant with rate increasing. pt crying out with discomfort. Dr. Farmer notified, original EKG reviewed as well as bedside payroll human resources assistant.
[2022-04-21] MEDS: haloperidol inj 5 mg/mL INJ 1 mL 1 MG IVP (14:24)
[2022-04-21] MEDS: digoxin 250 mcg/ml INJ 2 mL IVP (14:32)
--- NOTE | 2022-04-21 14:43 | PC.NURSE ---
pt continues to hyperventilate and request to wait on potassium medication at this time
[2022-04-21 14:56] LABS: Adenovirus Not Detected (NOT DETECT); Chlamydia Pneumoniae Not Detected (NOT DETECT); Coronavirus 229E,HKU1,NL63,OC4 Not Detected (NOT DETECT); Human Metapneumovirus Not Detected (NOT DETECT); Human Rhinovirus/Enterovirus Not Detected (NOT DETECT); Influenza A Not Detected (NOT DETECT); Influenza A H1 Not Detected (NOT DETECT); Influenza A H1-2009 Not Detected (NOT DETECT); Influenza A H3 Not Detected (NOT DETECT); Influenza B Not Detected (NOT DETECT); Mycoplasma Pneumoniae Not Detected (NOT DETECT); Parainfluenza Virus Type 1 Not Detected (NOT DETECT); Parainfluenza Virus Type 2 Not Detected (NOT DETECT); Parainfluenza Virus Type 3 Not Detected (NOT DETECT); Parainfluenza Virus Type 4 Not Detected (NOT DETECT); Respiratory Syncytial Virus A Not Detected (NOT DETECT); Respiratory Syncytial Virus B Not Detected (NOT DETECT); SARS-COV-2 Not Detected (NOT DETECT)
[2022-04-21 15:13] LABS: D Dimer <= 0.27 ug/mIFEU (0-0.59)
--- NOTE | 2022-04-21 15:15 | CTR_ITS ---
PROCEDURE INFORMATION: Exam: CT Chest With Contrast; Diagnostic Exam date and time: 04/21/2022 3:50 PM Age: 81 years old Clinical indication: Patient HX: SOB x 2 weeks. Recent pna; Additional info: SOB, tachycardia TECHNIQUE: Imaging protocol: Diagnostic computed tomography of the chest with contrast. Contrast material: OMNI 350; Contrast volume: 95 ml; Contrast route: INTRAVENOUS (IV); Other protocol: This patient has received 4 known CTs and 0 known cardiac nuclear medicine studies in the 12 months prior to the current study. COMPARISON: CT chest abdpel w/*[id number] 04/15/2022 12:44 PM RADIATION DOSE METRICS: Total DLP (mGy-cm): 333.7 FINDINGS: Lungs: Scattered ground-glass interstitial lung densities seen throughout the right lung likely representing chronic interstitial lung disease. Similar interstitial densities are seen in the left lower lobe. No consolidation. No masses. Pleural spaces: Unremarkable. No pneumothorax. No pleural effusion. Heart: Unremarkable. No cardiomegaly. No pericardial effusion. Lymph nodes: Unremarkable. No enlarged lymph nodes. Vasculature: Unremarkable. No aortic aneurysm. Bones/joints: Unremarkable. No acute fracture. Soft tissues: There is filling defects present within the gallbladder which likely represents a gallstone. CT/CT chest w con* [id number] IMPRESSION: 1. No acute chest abnormalities. 2. Ground-glass interstitial densities seen in the right lung and left lower lobe. 3. Solitary gallstone 4. Otherwise negative examination
[2022-04-21 15:39] LABS: Glucose Urine UA Norm (Normal); Ketones Urine 1+ (Negative); Protein Urine Trace (Negative); Specific Gravity, Urine 1.015 (1.005-1.030); Urine Appearance Hazy (CLEAR); Urine Color Yellow (Yellow); pH Urine 6.5 (5-7)
[2022-04-21 15:40] LABS: Add Urine Microscopic? YES; Bilirubin Urine Neg (Negative); Blood Urine Neg (Negative); Leukocyte Esterase Urine Trace (Negative); Nitrate Urine Negative (Negative); Urobilinogen Urine Norm (Negative)
[2022-04-21 15:41] LABS: Add Urine Culture? No; Bacteria Urine 2+ /hpf; WBC Urine 0-4 /hpf (0-5)
[2022-04-21] MEDS: iohexol 350 mg/mL 500 mL Btl (per mL) IV (15:50)
[2022-04-21] MEDS: metoprolol tartrate 1 mg/1 mL SDV 5 mL 2.5 MG IVP (16:22)
[2022-04-21] MEDS: potassium chloride ER 20 mEq Tablet 40 MEQ PO (16:22)
[2022-04-21] MEDS: levoFLOXacin 750 mg Tablet PO (16:44)
--- NOTE | 2022-04-22 10:04 | DCPLANNER ---
Addendum entered by Chelly Hong 06/25/22 09:00: Patient had a follow up with heart care - patient did attend appointment Addendum entered by Chelly Hong 04/25/22 11:14: Patient has a follow up appointment scheduled for May at 3:[address] Christopher at [facility]. Clinic will call patient with appointment information. Original Note: hydro generation manager had message to schedule a follow up appointment for patient with cardiology. hydro generation manager sent patients information to the front office staff at [facility]. Patients information will be printed and reviewed. Clinic will call patient with appointment information.
== END 2022-04-21 17:15 | disposition home or self-care (01) ==
PROVIDERS: Emergency Provider Emergency Medicine; PCP Internal Medicine
DX: R06.02 Shortness of breath (principal); Z79.01 Long term (current) use of anticoagulants; I11.0 Hypertensive heart disease with heart failure; I50.22 Chronic systolic (congestive) heart failure; J44.9 Chronic obstructive pulmonary disease, unspecified; E78.2 Mixed hyperlipidemia; Z20.822 Contact with and (suspected) exposure to COVID-19
CPT/HCPCS: 36415; 70450; 71045; 71260; 80053; 80162; 81001; 83605; 83880; 84145; 84484; 85025; 85378; 86140; 87040; 87635; 93005; 94640; 96374; 96375; 99285; J1160; J1630; J2930; J3490; J7613; J7644; Q9967

== ENCOUNTER 2022-05-28 17:39 | Emergency (ER) | payer MEDICARE, MEDICAID, SELFPAY ==
[2022-05-28 17:50] VITALS: BP 137/91; PULSE 89; RESP 24; TEMP 36.4; O2SAT 95; BMI 25.9
--- NOTE | 2022-05-28 18:06 | ECG_ITS ---
[facility] Test Date: 2022-05-28 Pat Name: Arielle Vences Department: Room: Gender: Female Tombstone Setter: : 1940 Requested By: Lina Richards Order Number: [id number] Reba MD: Vidal Christopher M.D. Measurements Intervals [place] Rate: 114 P: 255 RI: 173 QRS: -31 QRSD: 85 T: 40 QT: 310 QTc: 427 Interpretive Statements Atrial fibrillation with rapid ventricular rate and occasional PVCs LEFT AXIS DEVIATION [QRS AXIS < -30] MODERATE ST DEPRESSION [0.05+ mV ST DEPRESSION] Compared to ECG 04/21/2022 13:21:54 Left-axis deviation now present ST (T wave) deviation now present Left anterior fascicular block no longer present Myocardial infarct finding no longer present Electronically Signed On 05-29-2022 23:25:03 REGISTERED OCCUPATIONAL THERAPIST by Vidal Christopher M.D. [id number]
== END 2022-05-28 21:18 | disposition left against medical advice (07) ==
PROVIDERS: Emergency Provider Family Medicine; PCP Internal Medicine
DX: Z53.21 Procedure and treatment not carried out due to patient leaving prior to being seen by health care provider (principal)
CPT/HCPCS: 93005

== ENCOUNTER → 2022-06-12 15:09 | Outpatient (BNVA) | payer MEDICARE, MEDICAID, SELFPAY | PROVIDERS: PCP Internal Medicine; Visit Provider Internal Medicine Cardiovascular Disease | DX: I11.0 Hypertensive heart disease with heart failure (principal); I50.22 Chronic systolic (congestive) heart failure; I48.20 Chronic atrial fibrillation, unspecified; Z79.01 Long term (current) use of anticoagulants; I34.0 Nonrheumatic mitral (valve) insufficiency; J44.1 Chronic obstructive pulmonary disease with (acute) exacerbation; R06.02 Shortness of breath; R06.09 Other forms of dyspnea | CPT/HCPCS: 36415; 80048; 80162; 83880; 99205 ==

== ENCOUNTER 2022-06-19 09:18 | Outpatient (CLI) | payer MEDICARE, MEDICAID, SELFPAY ==
[2022-06-19 10:43] VITALS: BMI 27.9
--- NOTE | 2022-06-19 10:44 | ECG_ITS ---
[facility] Test Date: 2022-06-19 Pat Name: Arielle Vences Department: Room: Gender: Female Home Appliance Technician: Maria Ines Lemons : 1940 Requested By: Vidal Christopher Order Number: [id number] Reba MD: Vidal Christopher M.D. Interpretive Statements NAME OF STUDY: LEXISCAN SESTAMIBI STRESS TEST INDICATION: Chest Pain, PROCEDURE: At the baseline, the EKG revealed atrial fibrillation with a controlled ventricular response rate. Poor R wave progression. Some nonspecific ST-T changes. The baseline heart was 81 bpm with a blood pressue of 138/101 mm of Hg Lexiscan was infused over a period of 20 seconds. A total of 0.4 milligrams of Lexiscan was infused. The stress phase was continued for a total of 5 minutes. Heart rate at the end of the stress phase was 103 bpm with a blood pressure 140/98 mm of Hg. The EKG at the peak infusion revealed no significant changes. Occasional PVCs were noted during the infusion Sestamibi was injected 20 seconds after the Lexiscan infusion. Heart rate at the end of the recovery phase was 102 bpm with a blood pressure of 149/97 mm of Hg. CONCLUSION: 1. No significant EKG changes with the LexiScan infusion 2. No LexiScan induced chest pain or cardiac arrhythmia 3. Normal blood pressure and heart rate response 4. Sestamibi/sestamibi perfusion scan pending; see separate report. Electronically Signed On 06-20-2022 17:50:02 CDT by Vidal Christopher M.D. [email or web address] ([id number]
--- NOTE | 2022-06-19 10:45 | NMCV_ITS ---
NM elisa perf SPECT r/s* [id number] Vences, Arielle Age: 81 Gender: F : 1940 Exam Date: 06/19/2022 10:45 Ordering Phys: Vidal Christopher MD ([email or web address]) Technologist: BALBINA Escudero Exam Location: [facility] Indications: CORONARY ANGIOPLASTY STATUS STRESS TEST Please see separate stress test report in [facility] for full findings IMAGE PROTOCOL Rest/Stress 1 Lexiscan Day Radiopharmaceutical Dose (mCi) Administration Site Administered by Rest: Tc-99m 10.7 IV BALBINA Mercado Sestamibi Stress:Tc-99m 32.4 IV BALBINA Escudero Sestamiplacido Rest: 19-Jun-2022 60 Discovery 630 Stress: 19-Jun-2022 30 Discovery 630 0.4mg Lexiscan. Supine position only as patient was unable to lay prone. SPECT RESULTS Technical Quality: Excellent Raw Data Analysis: Normal Image Corrections: No attenuation or motion correction applied Summed Stress Score: 0 Summed Rest Score: 0 Summed Difference Score: 0 PERFUSION FINDINGS Fairly uniform myocardial tracer uptake. No significant perfusion abnormalities. FUNCTIONAL RESULTS (calculated via Gated SPECT) Stress Image LV EF (%): 86 Stress EDV (mL):81 TID: 0.94 Stress ESV (mL):11 FUNCTIONAL FINDINGS: Segmental wall motion analysis revealing no gross wall motion abnormalities IMPRESSIONS 1. Unremarkable Myocardial perfusion imaging 2. Normal LV ejection fraction of 86%. 3. LV wall motion analysis revealing no gross wall motion abnormalities. 4. Normal LV volume Low probability for coronary ischemia, based on the above findings Dr Vidal Christopher MD FAC (Electronically Signed) Final Date: 19 June 2022 21:31 S
[2022-06-19 11:40] VITALS: BP 149/97; PULSE 98
[2022-06-19] MEDS: regadenoson 0.4 Mg/5 ml Syringe IVP (11:43)
== END 2022-06-19 09:19 | disposition home or self-care (01) ==
PROVIDERS: PCP Internal Medicine; Visit Provider Internal Medicine Cardiovascular Disease
DX: Z98.61 Coronary angioplasty status (principal); R07.9 Chest pain, unspecified
CPT/HCPCS: 36415; 78452; 93017; 96374; A9500; J2785

== ENCOUNTER 2022-08-12 20:40 | Emergency (ER) | payer MEDICARE, MEDICAID, SELFPAY ==
[2022-08-12] VITALS (7 sets, daily range): BP systolic 132–172; BP diastolic 83–112; PULSE 87–105; RESP 12–18; TEMP 36.6; O2SAT 94–99; BMI 24.3
--- NOTE | 2022-08-12 21:04 | XRR_ITS ---
PROCEDURE INFORMATION: Exam: XR Left Hip Exam date and time: 08/12/2022 9:19 PM Age: 81 years old Clinical indication: Injury or trauma; Fall; Blunt trauma (contusions or hematomas); Left; Hip and pelvic region; Additional info: Fall pain TECHNIQUE: Imaging protocol: Radiologic exam of the left hip. Views: 2 or 3 views hip with pelvis when performed. COMPARISON: CT abdomen pelvis w con* [id number] 04/20/2022 2:38 PM FINDINGS: Bones/joints: Unremarkable. No acute fracture. Soft tissues: Unremarkable. XR/XR hip LT 2-3V wo/w pel* [id number] IMPRESSION: No acute findings.
--- NOTE | 2022-08-12 21:04 | CTR_ITS ---
PROCEDURE INFORMATION: Exam: CT Head Without Contrast Exam date and time: 08/12/2022 9:13 PM Age: 81 years old Clinical indication: Injury or trauma; Fall; Blunt trauma (contusions or hematomas); Additional info: Fall, pain on blood thinner TECHNIQUE: Imaging protocol: Computed tomography of the head without contrast. Radiation optimization: All CT scans at this facility use at least one of these dose optimization techniques: automated exposure control; mA and/or kV adjustment per patient size (includes targeted exams where dose is matched to clinical indication); or iterative reconstruction. REPORTING DATA: Count of CT and Cardiac NM exams in prior 12 months: This patient has received 6 known CTs and 0 known cardiac nuclear medicine studies in the 12 months prior to the current study. COMPARISON: CT head wo con* [id number] 04/21/2022 1:29 PM RADIATION DOSE METRICS: Total DLP (mGy-cm): 1104 FINDINGS: Brain: No focal hemorrhage or midline shift is identified. The ventricles and parenchyma show moderate atrophy and chronic bicerebral white matter ischemic change. There is chronic left frontal encephalomalacia. No significant change has occurred from 04/21/2022. Cerebral ventricles: No ventriculomegaly or evidence of hydrocephalus. Paranasal sinuses: No evidence of acute sinusitis. Mastoid air cells: Visualized mastoid air cells are well aerated. Bones/joints: No displaced skull fracture is noted. Soft tissues: Unremarkable. Vasculature: Diffuse vascular calcifications are present. CT/CT head wo con* [id number] IMPRESSION: 1. No acute intracranial abnormality. 2. Moderate age-related changes. Other chronic findings are similar to 04/21/2022.
--- NOTE | 2022-08-12 21:04 | XRR_ITS ---
PROCEDURE INFORMATION: Exam: XR Left Wrist Exam date and time: 08/12/2022 9:23 PM Age: 81 years old Clinical indication: Injury or trauma; Fall; Blunt trauma (contusions or hematomas); Wrist; Left; Additional info: Fall pain TECHNIQUE: Imaging protocol: Radiologic exam of the left wrist. Views: 3 or more views. COMPARISON: No relevant prior studies available. FINDINGS: Bones/joints: No acute fracture or dislocation is noted. The skeletal structures seem age-appropriate. [id number] diffuse left wrist DJD. Soft tissues: Unremarkable. XR/XR wrist LT min 3V* [id number] IMPRESSION: No acute findings.
--- NOTE | 2022-08-12 21:04 | XRR_ITS ---
PROCEDURE INFORMATION: Exam: XR Left Knee Exam date and time: 08/12/2022 9:24 PM Age: 81 years old Clinical indication: Injury or trauma; Fall; Blunt trauma; Left; Prior surgery; Surgery date: 6+ months; Surgery type: Lt knee surgery; Additional info: Fall pain TECHNIQUE: Imaging protocol: Radiologic exam of the left knee. Views: 3 views. COMPARISON: No relevant prior studies available. FINDINGS: Bones/joints: No acute fracture or dislocation is noted. The skeletal structures seem age-appropriate. Proximal tibial ORIF. [id number] left knee DJD. Soft tissues: Unremarkable. XR/XR knee LT 3V* [id number] IMPRESSION: No acute findings.
--- NOTE | 2022-08-12 21:08 | W.ED.FALL ---
HPI - Fall General: Chief Complaint: Fall Stated Complaint: wrist injury Time Seen by Provider: 08/12/22 20:51 History of Present Illness: Patient presents to the ER with complaints of falling. 1 hour prior patient tripped and fell over her wheelchair and hit both knees left wrist and left hip. complaint: fall Onset (ago): hour(s) (About 1 hour prior) Fall from: standing Fall witnessed: no Place fall occurred: home Loss of consciousness: None Context: tripped/slipped Location of injury: other (Left wrist left hip left knee) Associated symptoms-after fall: Denies abdominal pain, chest pain or neck pain Review of Systems General: Reports: 10 or more systems reviewed and unremarkable except in HPI and below Const: Denies: fever(s) or chills Eyes: Denies: change in vision or photophobia ENMT: Denies: throat pain or odynophagia Card: Denies: chest pain, palpitations or irregular heart rhythm Resp: Denies: dyspnea, productive cough or non-productive cough GI: Denies: abdominal pain, nausea, vomiting or diarrhea : Denies: flank pain or difficulty voiding Musc: Denies: neck pain or back pain PFSH ED PFSH: Medical History Anal fissure Atrial fibrillation with RVR Chronic back pain Chronic systolic (congestive) heart failure COPD (chronic obstructive pulmonary disease) COVID Essential hypertension History of colon polyps Lymphedema of both lower extremities Mixed hyperlipidemia Surgical History History of bladder surgery History of colonoscopy years ago History of hysterectomy Family History Sister Stroke CAD (coronary artery disease) ID @ 75 Hypertension Brother Cancer Father Cancer Social History Smoking and tobacco status: never smoked Second hand smoke exposure: No Smoking risk assessment/counseling performed?: No Alcohol intake: never Desire information about alcohol rehabilitation?: No Counseling given: No Substance/Drug Use: never Desire information about substance/drug rehabilitation?: No Counseling given: No Adopted: No Caregiver/support person: No Lives independently: Yes Household members: spouse Housing: House Marital status: service: No Current occupational status: retired Do you think of yourself as: Straight/Heterosexual Current gender identity: Female Physical Exam Const: COMMON NORMALS: no acute distress, average body habitus, patient oriented x3, no limitations, healthy appearing, alert and well nourished HENMT: COMMON NORMALS: hearing grossly normal bilaterally, external ears normal, Normal external nose present and moist oral mucous membranes HEAD & SCALP: abrasion (Forehead) NOSE: Normal external nose present EXTERNAL EAR: Yes external ears normal Eye: COMMON NORMALS: Equal, round and reactive pupils present, EOMs intact bilaterally, conjunctivae normal and no scleral icterus CONJUNCTIVA: Yes conjunctivae normal PUPIL: Yes Equal, round and reactive pupils present Neck/C-Spine: COMMON NORMALS: full ROM, no lymphadenopathy, supple, no meningeal signs, no JVD and Thyroid normal THYROID: Thyroid normal Lymph: LYMPHATIC: no lymphadenopathy noted Chest: COMMONS NORMALS: normal inspection of the chest and normal palpation of entire chest wall Resp: COMMON NORMALS: normal respiratory effort, No retractions and No use of accessory muscles Cardio: COMMON NORMALS: no JVD, regular rate, regular rhythm, S1 normal heart sound present, S2 normal heart sound present, No gallops present (Cardio), No clicks present (Cardio), No murmurs present (Cardio) and No rub (Cardio) RATE: regular rate RHYTHM: regular rhythm HEART SOUNDS: S1 normal heart sound present and S2 normal heart sound present GI: COMMON NORMALS: Normal to inspection, nondistended, normoactive bowel sounds present, Soft to palpation, non-tender, No hepatosplenomegaly present and no masses PALPATION: Yes Soft to palpation and Yes No hepatosplenomegaly present Extremity: NARRATIVE EXTREMITY EXAM: Tenderness to palpation over left wrist, left knee, and left hip region, no gross deformity or crepitus in any region. Neuro: COMMON NORMALS: patient oriented x3 SENSORIUM/ORIENTATION: Yes alert MENINGEAL SIGNS: Yes no meningeal signs Course Vital Signs: Vital signs: Vital Signs Temperature 97.8 F 08/12/22 20:54 Pulse Rate 103 H 08/12/22 22:07 Respiratory Rate 18 08/12/22 21:53 Blood Pressure 152/108 08/12/22 22:07 Pulse Oximetry 96 08/12/22 22:07 Oxygen Delivery Me thod Room Air 08/12/22 22:07 MDM - Fall Medical Decision Making Presents to the ER with complaints of falling out of her wheelchair and hurting her wrist hip and knee. Patient not lose consciousness. Lab work was obtained as well as EKG head CT and multiple x-rays. There are no acute findings. Patient does have A-fib with RVR but is rate controlled. No new findings. Patient will be discharged home to follow-up with PCP as needed. Differential Diagnosis Likely fracture of wrist; Unlikely syncope, dislocation of shoulder region, compression fracture, concussion with loss of consciousness or concussion without loss of consciousness Medical Records I reviewed the patient's medical records. Lab Data I reviewed the patient's lab results. 08/12/22 21:05 08/12/22 21:[address] 08/12/22: IMPRESSION: 1. No acute intracranial abnormality. 2. Moderate age-related changes. Other chronic findings are similar to 04/21/2022. Hip/Pelvis X-Ray 08/12/22: IMPRESSION: No acute findings. Knee X-Ray 08/12/22: IMPRESSION: No acute findings. Wrist X-Ray 08/12/22: IMPRESSION: No acute findings. Laboratory Results WBC 11.3 10^3/uL (4.0-10.0) H 08/12/22 21: RBC 4.86 10^6/uL (4.1-5.3) 08/12/22 21:05 Hgb 14.4 g/dL (11.5-15.3) 08/12/22 21: Hct 44.8 % (37.0-47.0) 08/12/22 21: MCV 92.2 fl (81-99) 08/12/22 21:05 MCH 29.6 pg (28.0-34.0) 08/12/22 21: MCHC 32.1 g/dL (30.0-36.0) 08/12/22 21: RDW 12.9 % (12.1-15.1) 08/12/22 21: Plt Count 302 10^3/cmm (130-400) 08/12/22 21: MPV 9.9 fL (7.4-10.4) 08/12/22 21: Neut % (Auto) 74.2 % 05/23/23 21:05 Lymph % (Auto) 15.7 % 08/12/22 21:05 [place] % (Auto) 7.9 % 08/12/22 21:05 Eos % (Auto) 1.4 % 08/12/22 21:05 Baso % (Auto) 0.4 % 08/12/22 21:05 Neut # (Auto) 8.38 10^3/uL (1.8-7.7) H 08/12/22 21:05 Lymph # (Auto) 1.8 10^3/uL (0.8-4.8) 08/12/22 21:05 [place] # (Auto) 0.9 10^3/uL (0.2-0.9) 08/12/22 21:05 Eos # (Auto) 0.2 10^3/uL (0.0-0.8) 08/12/22 21:05 Baso # (Auto) 0.0 10^3/uL (0.0-0.1) 08/12/22 21:05 Nucleated RBC % (auto) 0 % 08/12/22 21:05 Nucleated RBCs # 0.0 /100WBC 08/12/22 21:05 PT 13.70 SECONDS (12.1-14.9) 08/12/22 21:05 INR 1.02 (0.8-1.2) 08/12/22 21:05 Sodium 134 mmol/L (136-145) L 08/12/22 21:05 Potassium 4.0 mmol/L (3.5-5.1) 08/12/22 21:05 Chloride 98 mmol/L (98-107) 08/12/22 21:05 Carbon Dioxide 20 mmol/L (22-29) L 08/12/22 21:05 Anion Gap 20.0 (5-19) H 08/12/22 21:05 BUN 13 mg/dL (8-23) 08/12/22 21:05 Creatinine 0.8 mg/dL (0.5-0.9) 08/12/22 21:05 GFR Calculation Not Reportable 08/12/22 21:05 Glucose 126 mg/dL (65-115) H 08/12/22 21:05 Calculated Osmolality 280 mOsm/kg (285-295) L 08/12/22 21:05 Calcium 10.5 mg/dL (8.5-10.5) 08/12/22 21:05 Total Bilirubin 0.6 mg/dL (0.15-1.2) 08/12/22 21:05 AST 22 U/L (0-32) 08/12/22 21:05 ALT 9 U/L (0-33) 08/12/22 21:05 Alkaline Phosphatase 77 U/L (35-105) 08/12/22 21:05 NT-Pro-B Natriuret Pep 1077 pg/mL (0-450) H 08/12/22 21:05 Total Protein 7.5 g/dL (6.6-8.7) 08/12/22 21:05 Albumin 4.9 g/dL (3.5-5.2) 08/12/22 21:05 Globulin 2.6 g/dL (1.3-4.6) 08/12/22 21:05 Digoxin 0.3 ng/mL (0.6-1.2) L 08/12/22 21:05 EKG Data EKG 1: I personally reviewed and interpreted this EKG as follows: EKG interpretation date: 08/12/22 EKG interpretation time: 21:47 Prior EKG tracings: not available for review Interpretation: EKG showed ventricular rate 89 bpm, QRS duration 97, QTc of 421, atrial fibrillation with left anterior fascicular block septal myocardial infarction indeterminate age with Q waves in V1 and V2 Discharge Plan Discharge Patient Disposition: Home Clinical Impression: Fall Qualifiers: Encounter type: initial encounter Qualified Code(s): W19.XXXA - Unspecified fall, initial encounter A-fib Qualifiers: Atrial fibrillation type: longstanding persistent Qualified Code(s): I48.11 - Longstanding persistent atrial fibrillation Contusion Qualifiers: Encounter type: initial encounter Contusion area: hip Laterality: left Qualified Code(s): S70.02XA - Contusion of left hip, initial encounter Condition: Stable Prescriptions: No Action Anoro Ellipta 62.5-25 mcg/actuation blister with device 1 inh inhalation Q24H levothyroxine 88 mcg tablet 88 mcg PO DAILY digoxin 125 mcg (0.125 mg) tablet 125 mcg PO DAILY Eliquis 5 mg tablet 5 mg PO BID furosemide 40 mg tablet 20 mg PO DAILY gabapentin 600 mg tablet 600 mg PO TID loratadine 10 mg tablet 10 mg PO DAILY Myrbetriq 50 mg tablet extended release 24 hr 50 mg PO Q24H ondansetron 8 mg tablet,disintegrating 8 mg PO Q8H PRN (Reason: nausea and vomiting) Qty: 21 0RF nitrofurantoin monohyd/m-cryst [Macrobid] 100 mg capsule 100 mg PO Q12H 10 Days Qty: 20 0RF Rx Instructions: must administer with a meal/food prednisone 20 mg tablet 20 mg PO BID Qty: 10 0RF trazodone 50 mg Tablet 25 - 50 mg PO BEDTIME PRN (Reason: Sleep) pravastatin 20 mg Tablet 20 mg PO DAILY hydroxyzine pamoate 25 mg Capsule 25 mg PO BEDTIME PRN (Reason: Anxiety) duloxetine [Cymbalta] 60 mg Capsule,Delayed Release(Dr/Ec) 60 mg PO DAILY cholecalciferol (vitamin D3) 1,250 mcg (50,000 unit) capsule 50,000 unit PO Q7D Rx Instructions: (ON SUNDAYS) hydrocodone-acetaminophen 10-325 mg tablet 1 tab PO Q8H PRN (Reason: Pain) Thermotabs 287-180-15 mg Tablet 1 tab PO DAILY fluticasone propionate [Flonase Allergy Relief] 50 mcg/actuation [place],Suspension 1 - 2 spray INTRANASAL DAILY PRN (Reason: Nasal Congestion) nitroglycerin 0.4 mg tablet, sublingual 0.4 mg SUBLINGUAL Q5M PRN (Reason: chest pain) Qty: 30 0RF Rx Instructions: do not exceed 3 doses per episode pantoprazole 40 mg Tablet,Delayed Release (Dr/Ec) 40 mg PO DAILY potassium chloride 20 mEq Tablet Extended Release 20 meq PO 5XD amlodipine 10 mg Tablet 10 mg PO DAILY montelukast 10 mg Tablet 10 mg PO DAILY tizanidine 2 mg Capsule 2 mg PO BID PRN (Reason: Spasms) triamcinolone acetonide 0.1 % ointment 1 applic topical TID PRN (Reason: Rash) diltiazem HCl 180 mg capsule,extended release 24 hr 180 mg PO DAILY Qty: 30 0RF prednisone 5 mg tablet See Rx Instructions .ROUTE .COMPLEX Qty: 36 0RF Rx Instructions: prednisone 5 mg: take 8 tablets (40 mg) on Day 1; 7 tablets (35 mg) on Day 2; then decrease by 1 tablet every day until finished ondansetron 4 mg tablet,disintegrating 4 mg PO Q8H PRN (Reason: nausea and vomiting) Qty: 15 0RF Discharge Orders: Discharge ED (Routine); Ordered 08/12/22 Ordered By: Onel Alcantara Referrals: Alison Ramos MD [Primary Care Provider] - 1 week Patient Instructions: Contusion, Fall Prevention Coding Level of Care Code ED Electronic Operator for Juan F Mckinney
--- NOTE | 2022-08-12 21:47 | ECG_ITS ---
[facility] Test Date: 2022-08-12 Pat Name: Arielle Vences Department: Room: Gender: Female Lag Screwer: : 1940 Requested By: Onel Alcantara Order Number: [id number] Reba MD: Vidal Christopher M.D. Measurements Intervals [place] Rate: 89 P: 0 DE: 0 QRS: -68 QRSD: 97 T: 64 QT: 374 QTc: 457 Interpretive Statements ATRIAL FIBRILLATION LEFT ANTERIOR FASCICULAR BLOCK [QRS AXIS <= -45, QR IN I, RS IN II] SEPTAL MYOCARDIAL INFARCTION , OF INDETERMINATE AGE [40+ ms Q WAVE IN V1/V2] Compared to ECG 05/28/2022 18:06:19 Left anterior fascicular block now present Myocardial infarct finding now present Ventricular premature complex(es) no longer present Left-axis deviation no longer present ST (T wave) deviation no longer present Electronically Signed On 08-13-2022 22:18:09 CDT by Vidal Christopher M.D. [email or web address]
[2022-08-12 21:51] LABS: Basophils % 0.4 %; Eosinophils # 0.2 10^3/uL (0.0-0.8); Eosinophils % 1.4 %; Hematocrit 44.8 % (37.0-47.0); Hemoglobin 14.4 g/dL (11.5-15.3); Lymphocytes # 1.8 10^3/uL (0.8-4.8); Lymphocytes % 15.7 %; Mean Corpuscular HGB Conc 32.1 g/dL (30.0-36.0); Mean Corpuscular Hemoglobin 29.6 pg (28.0-34.0); Mean Corpuscular Volume 92.2 fl (81-99); Mean Platelet Volume 9.9 fL (7.4-10.4); Monocytes # 0.9 10^3/uL (0.2-0.9); Monocytes % 7.9 %; Neutrophils # 8.38 10^3/uL (1.8-7.7); Neutrophils % 74.2 %; Nucleated Red Blood Cells % 0 %; Platelet Count 302 10^3/cmm (130-400); Red Blood Count 4.86 10^6/uL (4.1-5.3); Red Cell Distribution Width 12.9 % (12.1-15.1); White Blood Count 11.3 10^3/uL (4.0-10.0)
[2022-08-12 21:57] LABS: INR 1.02 (0.8-1.2)
[2022-08-12 22:07] LABS: Digoxin 0.3 ng/mL (0.6-1.2)
[2022-08-12 22:14] LABS: Alanine Aminotransferase 9 U/L (0-33); Albumin Level 4.9 g/dL (3.5-5.2); Alkaline Phosphatase 77 U/L (35-105); Blood Urea Nitrogen 13 mg/dL (8-23); Calcium 10.5 mg/dL (8.5-10.5); Carbon Dioxide 20 mmol/L (22-29); Chloride 98 mmol/L (98-107); Globulin 2.6 g/dL (1.3-4.6); Glucose 126 mg/dL (65-115); NT Pro B Type Natriuretic Pept 1077 pg/mL (0-450); Osmolality Calculated 280 mOsm/kg (285-295); Sodium 134 mmol/L (136-145); Total Bilirubin 0.6 mg/dL (0.15-1.2); Total Protein 7.5 g/dL (6.6-8.7)
[2022-08-12 22:25] LABS: Aspartate Amino Transferase 22 U/L (0-32)
== END 2022-08-12 23:03 | disposition home or self-care (01) ==
PROVIDERS: Emergency Provider Emergency Medicine; PCP Internal Medicine
DX: S70.02XA Contusion of left hip, initial encounter (principal); I48.11 Longstanding persistent atrial fibrillation; Z79.01 Long term (current) use of anticoagulants; I11.0 Hypertensive heart disease with heart failure; I50.22 Chronic systolic (congestive) heart failure; J44.9 Chronic obstructive pulmonary disease, unspecified; E78.2 Mixed hyperlipidemia; W18.09XA Striking against other object with subsequent fall, initial encounter
CPT/HCPCS: 70450; 73110; 73502; 73562; 80053; 80162; 83880; 85025; 85610; 93005; 99285

== ENCOUNTER 2022-08-15 10:51 | Emergency (ER) | payer MEDICARE, MEDICAID, SELFPAY ==
[2022-08-15 11:22] VITALS: BP 174/85; PULSE 102; RESP 18; TEMP 36.7; O2SAT 94; BMI 25.4
[2022-08-15 12:45] LABS: Basophils % 0.4 %; Eosinophils # 0.1 10^3/uL (0.0-0.8); Hemoglobin 15.8 g/dL (11.5-15.3); Lymphocytes # 1.1 10^3/uL (0.8-4.8); Lymphocytes % 11.8 %; Mean Corpuscular HGB Conc 32.2 g/dL (30.0-36.0); Mean Corpuscular Hemoglobin 29.7 pg (28.0-34.0); Mean Corpuscular Volume 92.1 fl (81-99); Mean Platelet Volume 9.5 fL (7.4-10.4); Monocytes # 0.8 10^3/uL (0.2-0.9); Monocytes % 8.5 %; Neutrophils # 6.96 10^3/uL (1.8-7.7); Neutrophils % 78.1 %; Nucleated Red Blood Cells % 0 %; Platelet Count 298 10^3/cmm (130-400); Red Blood Count 5.32 10^6/uL (4.1-5.3); White Blood Count 8.9 10^3/uL (4.0-10.0)
[2022-08-15 13:04] LABS: Alanine Aminotransferase 10 U/L (0-33); Alkaline Phosphatase 81 U/L (35-105); Anion Gap 17.8 (5-19); Aspartate Amino Transferase 18 U/L (0-32); Blood Urea Nitrogen 14 mg/dL (8-23); Calcium 10.1 mg/dL (8.5-10.5); Carbon Dioxide 26 mmol/L (22-29); Chloride 97 mmol/L (98-107); Globulin 2.5 g/dL (1.3-4.6); Glucose 101 mg/dL (65-115); Lipase 22 U/L (13-60); Osmolality Calculated 285 mOsm/kg (285-295); Potassium 3.8 mmol/L (3.5-5.1); Sodium 137 mmol/L (136-145); Total Bilirubin 0.6 mg/dL (0.15-1.2); Total Protein 7.5 g/dL (6.6-8.7)
== END 2022-08-15 15:04 | disposition left against medical advice (07) ==
PROVIDERS: Physician Assistant; Emergency Provider Family Medicine; PCP Internal Medicine
DX: Z53.21 Procedure and treatment not carried out due to patient leaving prior to being seen by health care provider (principal)
CPT/HCPCS: 36415; 80053; 83690; 85025

== ENCOUNTER → 2022-09-11 14:24 | Outpatient (BNVA) | payer MEDICARE, MEDICAID, SELFPAY | PROVIDERS: PCP Internal Medicine; Visit Provider Nurse Practitioner Family | DX: I11.0 Hypertensive heart disease with heart failure (principal); I50.22 Chronic systolic (congestive) heart failure; I48.91 Unspecified atrial fibrillation; Z79.01 Long term (current) use of anticoagulants | CPT/HCPCS: 99214 ==

== ENCOUNTER 2022-11-08 11:00 | Observation (INO) | payer MEDICARE, MEDICAID, SELFPAY ==
[2022-11-08] VITALS (65 sets, daily range): BP systolic 103–160; BP diastolic 74–116; PULSE 73–123; RESP 15–36; TEMP 36.7–37.1; O2SAT 78–96
--- NOTE | 2022-11-08 11:18 | XRR_ITS ---
PROCEDURE INFORMATION: Exam: XR Chest Exam date and time: 11/08/2022 11:34 AM Age: 81 years old Clinical indication: Other: Dx pneu, pcp dx pneu . On abx, worse, HX copd/afib/chf TECHNIQUE: Imaging protocol: Radiologic exam of the chest. Views: 2 views. COMPARISON: 1. CT chest w con* [id number] 04/21/2022 3:50 PM 2. Chest radiograph 04/21/2022 3. Chest radiograph 04/15/2022 no FINDINGS: Lungs: Faint hazy opacities seen in the right upper lobe and peripheral right lower lobe. Pleural spaces: Unremarkable. No pleural effusion. No pneumothorax. Heart/Mediastinum: Unremarkable. No cardiomegaly. Bones/joints: Unremarkable. XR/XR chest 2V* [id number] IMPRESSION: Faint hazy opacities seen in the right upper lobe and peripheral right lower lobe. These were not seen on prior chest radiographs 04/21/2022 and 04/15/2022. Hazy ground-glass interstitial lung opacities were seen in this distribution on CT chest 04/21/2022. This may represent mild progression of chronic interstitial lung disease compared to 03/25/2022. This appearance would be atypical for pneumonia.
--- NOTE | 2022-11-08 11:22 | W.ED.SOB ---
HPI - SOB/Dyspnea General: Chief Complaint: Shortness of Breath/Dyspnea Stated Complaint: sob, weak Time Seen by Provider: 11/08/22 11:11 Source: patient and family Mode of arrival: wheelchair Limitations: no limitations History of Present Illness: HPI Narrative: Patient presents to the emergency department today brought by family. Family answers most of her history as patient is hardly willing to speak-only occasionally nods or shakes her head to answer. Family reports patient was diagnosed with pneumonia earlier this week through the primary care office. Nurse states it was confirmed on x-ray. Patient's primary care doctor is in another facility in [place] and I do not have records on this evaluation. They states she was put on antibiotics at that time and has been taking them as prescribed. They are not sure what the medication is. (Nurse was able to determine Pt is taking Cefdinir). However, patient continues to have worsening symptoms of continued cough, somewhat productive cough, and upper back pain. They noticed an increase shortness of breath and increased fatigue during this time as well. Patient might be running fevers but, when asked if she had, she shrugged her shoulders and said she thought so. Nursing noted when patient provided urine specimen she had loose, yellow, malodorous stool. Given her recent antibiotic use we did place a C. difficile order. Patient again indicated no abdominal pains, no nausea, no vomiting. Patient states she is not having diarrhea but, we explained the stool she had here in the emergency department was yellow and loose. Patient reports only having 1 or maybe 2 bowel movements daily-denies days with 10+ bowel movements, etc. Family believes she has been having loose stools for a while-even before starting the antibiotics during this time. Chart review shows patient has a history of A-fib, COPD, CHF, and hypertension. Asked patient if she has been using her inhalers for her COPD and she waved her hand back and forth sometimes . Review of Systems General: Reports: 10 or more systems reviewed and unremarkable except in HPI and below PFSH ED PFSH: Medical History Anal fissure Atrial fibrillation with RVR Chronic back pain Chronic systolic (congestive) heart failure COPD (chronic obstructive pulmonary disease) COVID Essential hypertension History of colon polyps Lymphedema of both lower extremities Mixed hyperlipidemia Surgical History History of bladder surgery History of colonoscopy years ago History of hysterectomy Family History Sister Stroke CAD (coronary artery disease) [place] @ 75 Hypertension Brother Cancer Father Cancer Social History Smoking and tobacco status: never smoked Second hand smoke exposure: No Smoking risk assessment/counseling performed?: No Alcohol intake: never Desire information about alcohol rehabilitation?: No Counseling given: No Substance/Drug Use: never Desire information about substance/drug rehabilitation?: No Counseling given: No Adopted: No Caregiver/support person: No Lives independently: Yes Household members: spouse Housing: House Marital status: service: No Current occupational status: retired Do you think of yourself as: Straight/Heterosexual Current gender identity: Female Physical Exam Const: COMMON NORMALS: no acute distress (Nontoxic-appearing but obviously fatigued), patient oriented x3 and alert HENMT: OTHER: Mucous membranes are moist. No erythema or exudate of the posterior pharynx. Eye: COMMON NORMALS: Equal, round and reactive pupils present, EOMs intact bilaterally and conjunctivae normal CONJUNCTIVA: Yes conjunctivae normal PUPIL: Yes Equal, round and reactive pupils present Neck/C-Spine: COMMON NORMALS: no JVD Lymph: LYMPHATIC: no lymphadenopathy noted Resp: COMMON NORMALS: normal respiratory effort, No retractions and No use of accessory muscles OTHER: No signs of respiratory distress but, patient is taking very shallow breaths with diminished lung sounds bilaterally on auscultation. Patient does not have any episodes of coughing during her exam. Cardio: COMMON NORMALS: no JVD and regular rate RATE: regular rate GI: OTHER: Normoactive bowel sounds. Soft. Nontender on palpation. : COMMON NORMALS: Yes no CVA tenderness BLADDER/KIDNEY EXAM: Yes no CVA tenderness Back/Pelvis: COMMON NORMALS: no CVA tenderness; negative for no thoracic nor lumbar tenderness OTHER: Patient tender through the thoracic region of back. Extremity: COMMON NORMALS: normal to inspection, full ROM and no pedal edema NARRATIVE EXTREMITY EXAM: No signs of any significant edema in the lower extremities. No pitting edema. Neuro: COMMON NORMALS: patient oriented x3 SENSORIUM/ORIENTATION: Yes alert Skin: COMMON NORMALS: no rashes or lesions noted and turgor normal GENERAL SKIN EXAM: no rashes or lesions noted and turgor normal Course Vital Signs: Vital signs: Vital Signs Temperature 98.3 F 11/08/22 11:09 Pulse Rate 117 H 11/08/22 13:02 Respiratory Rate 16 11/08/22 12:55 Blood Pressure 139/99 11/08/22 11:09 Pulse Oximetry 96 11/08/22 12:55 Oxygen Delivery Me thod Room Air 11/08/22 12:55 MDM - SOB/Dyspnea Medical Decision Making Patient presents today appearing fatigued but, nontoxic. Vital signs are generally stable though patient has had varying heart rate while here. EKG showed active A-fib with RVR. I discussed this with Dr. Reddy who encouraged Cardizem-it appears patient has used Cardizem here in the emergency department in the past. While it is possible patient has a pneumonia, with her underlying chronic issues I do want to check some other labs and repeat her imaging. Repeat imaging does show a right upper lobe haze and concerns for a right lower lobe peripheral haze developing. No signs of any fluid accumulation in the lungs. Lab work shows a mildly elevated white count but BNP and troponins at typical baseline. When patient produced her yellow, loose stool, I was notified by the nurse and, we did order a C. difficile test on the specimen. Patient is denying multiple, daily episodes of diarrhea and states she is not having yellow stools. However, since we are ruling out C. difficile, we are holding antibiotic treatment here in the emergency department as a different or more appropriate antibiotics may need to be administered based on these findings. Given that the patient has worsening symptoms of pneumonia while on outpatient therapy, has underlying COPD, CHF, A-fib with RVR, it is recommended that she be admitted. Dr. Enamorado also agrees to the recommendation for admission. I spoke with Dr. Jj who recommended patient be sent to observation and, have cardiac monitoring. He also requested a PCR COVID test at this time. Patient was notified of lab results-indicating though still pending, imaging results, and recommended plan for admission. We will defer care to the hospitalist services at this time for further monitoring, treatment, and intervention. Differential Diagnosis Likely acute exacerbation of chronic obstructive airways disease, congestive heart failure and community acquired pneumonia Lab Data 11/08/22 11:50 11/08/22 11:50 Labs/Radiology: Radiology Impressions Chest X-Ray 11/08/22 11:18 IMPRESSION: Faint hazy opacities seen in the right upper lobe and peripheral right lower lobe. These were not seen on prior chest radiographs 04/21/2022 and 04/15/2022. Hazy ground-glass interstitial lung opacities were seen in this distribution on CT chest 04/21/2022. This may represent mild progression of chronic interstitial lung disease compared to 03/25/2022. This appearance would be atypical for pneumonia. Laboratory Results WBC 10.3 10^3/uL (4.0-10.0) H 11/08/22 11:50 RBC 4.71 10^6/uL (4.1-5.3) 11/08/22 11:50 Hgb 13.8 g/dL (11.5-15.3) 11/08/22 11:50 Hct 42.0 % (37.0-47.0) 11/08/22 11:50 MCV 89.2 fl (81-99) 11/08/22 11:50 MCH 29.3 pg (28.0-34.0) 11/08/22 11:50 MCHC 32.9 g/dL (30.0-36.0) 11/08/22 11:50 RDW 13.1 % (12.1-15.1) 11/08/22 11:50 Plt Count 293 10^3/cmm (130-400) 11/08/22 11:50 MPV 10.1 fL (7.4-10.4) 11/08/22 11:50 Neut % (Auto) 76.6 % 11/08/22 11:50 Lymph % (Auto) 10.1 % 11/08/22 11:50 [place] % (Auto) 10.7 % 11/08/22 11:50 Eos % (Auto) 1.3 % 11/08/22 11:50 Baso % (Auto) 0.5 % 11/08/22 11:50 Neut # (Auto) 7.85 10^3/uL (1.8-7.7) H 11/08/22 11:50 Lymph # (Auto) 1.0 10^3/uL (0.8-4.8) 11/08/22 11:50 [place] # (Auto) 1.1 10^3/uL (0.2-0.9) H 11/08/22 11:50 Eos # (Auto) 0.1 10^3/uL (0.0-0.8) 11/08/22 11:50 Baso # (Auto) 0.1 10^3/uL (0.0-0.1) 11/08/22 11:50 Nucleated RBC % (auto) 0 % 11/08/22 11:50 Nucleated RBCs # 0.0 /100WBC 11/08/22 11:50 ESR 44 mm/hr (0-15) H 11/08/22 11:50 Sodium 137 mmol/L (136-145) 11/08/22 11:50 Potassium 3.9 mmol/L (3.5-5.1) 11/08/22 11:50 Chloride 99 mmol/L (98-107) 11/08/22 11:50 Carbon Dioxide 25 mmol/L (22-29) 11/08/22 11:50 Anion Gap 16.9 (5-19) 11/08/22 11:50 BUN 9 mg/dL (8-23) 11/08/22 11:50 Creatinine 0.7 mg/dL (0.5-0.9) 11/08/22 11:50 GFR Calculation Not Reportable 11/08/22 11:50 Glucose 102 mg/dL (65-115) 11/08/22 11:50 Calculated Osmolality 283 mOsm/kg (285-295) L 11/08/22 11:50 Lactic Acid 1.7 mmol/L (0.5-2.2) 11/08/22 11:50 Calcium 9.6 mg/dL (8.5-10.5) 11/08/22 11:50 Total Bilirubin 0.5 mg/dL (0.15-1.2) 11/08/22 11:50 AST 27 U/L (0-32) 11/08/22 11:50 ALT 18 U/L (0-33) 11/08/22 11:50 Alkaline Phosphatase 140 U/L (35-105) H 11/08/22 11:50 Troponin T Baseline 20 ng/L (0-10) H 11/08/22 11:50 Troponin T 120 Minute 17.75 ng/L (0-10) H 11/08/22 14:06 Delta Troponin T -2.25 ABS# (0-10) L 11/08/22 14:06 C-Reactive Protein 230.9 mg/L (0.0-4.9) H 11/08/22 11:50 NT-Pro-B Natriuret Pep 1527 pg/mL (0-450) H 11/08/22 11:50 Total Protein 7.1 g/dL (6.6-8.7) 11/08/22 11:50 Albumin 3.6 g/dL (3.5-5.2) 11/08/22 11:50 Globulin 3.5 g/dL (1.3-4.6) 11/08/22 11:50 Procalcitonin 0.10 ng/mL (0-0.5) 11/08/22 11:50 Urine Color Yellow (Yellow) 11/08/22 12:30 Urine Appearance Hazy (CLEAR) A 11/08/22 12:30 Urine pH 5 (5-7) 11/08/22 12:30 Ur Specific [place] 1.020 (1.005-1.030) 11/08/22 12:30 Urine Protein Trace (Negative) 11/08/22 12:30 Urine Glucose (UA) Norm (Normal) 11/08/22 12:30 Urine Ketones 1+ (Negative) H 11/08/22 12:30 Urine Blood 2+ (Negative) H 11/08/22 12:30 Urine Nitrate Negative (Negative) 11/08/22 12:30 Urine Bilirubin 1+ (Negative) H 11/08/22 12:30 Urine Urobilinogen 4 mg/dL (Negative) H 11/08/22 12:30 Ur Leukocyte Esterase 2+ (Negative) H 11/08/22 12:30 Urine RBC 5-10 /hpf (0-2) H 11/08/22 12:30 Urine WBC 15-25 /hpf (0-5) H 11/08/22 12:30 Ur Squamous Epith Cells 15-25 /hpf (0-5) H 11/08/22 12:30 Amorphous Sediment Not Reportable 11/08/22 12:30 Urine Bacteria 3+ /hpf (NONE) H 11/08/22 12:30 Discharge Plan Discharge Patient Disposition: Placed in Observation Admit Provider: Rinku Jj Clinical Impression: Atrial fibrillation with RVR, CHF (congestive heart failure), Community acquired pneumonia, COPD (chronic obstructive pulmonary disease) Coding Level of Care Code ED [facility] for [facility]
--- NOTE | 2022-11-08 11:49 | ECG_ITS ---
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 Measurements Intervals [place] Rate: 113 P: 0 IL: 0 QRS: -73 QRSD: 93 T: 61 QT: 319 QTc: 438 Interpretive Statements ATRIAL FIBRILLATION WITH RAPID VENTRICULAR RESPONSE INCOMPLETE RIGHT BUNDLE BRANCH BLOCK [90+ ms QRS DURATION, TERMINAL R IN V1/V2, 40+ ms S IN I/aVL/V4/V5/V6] LEFT ANTERIOR FASCICULAR BLOCK [QRS AXIS <= -45, QR IN I, RS IN II] SEPTAL MYOCARDIAL INFARCTION , OF INDETERMINATE AGE [40+ ms Q WAVE IN V1/V2] Compared to ECG 08/12/2022 21:47:51 Incomplete right bundle-branch block now present Myocardial infarct finding still present Electronically Signed On 11-08-2022 12:04:08 CDT by Cristal Tran M.D. [id number]
[2022-11-08 12:19] LABS: Basophils # 0.1 10^3/uL (0.0-0.1); Basophils % 0.5 %; Eosinophils # 0.1 10^3/uL (0.0-0.8); Eosinophils % 1.3 %; Hemoglobin 13.8 g/dL (11.5-15.3); Lymphocytes % 10.1 %; Mean Corpuscular HGB Conc 32.9 g/dL (30.0-36.0); Mean Corpuscular Hemoglobin 29.3 pg (28.0-34.0); Mean Corpuscular Volume 89.2 fl (81-99); Mean Platelet Volume 10.1 fL (7.4-10.4); Monocytes # 1.1 10^3/uL (0.2-0.9); Monocytes % 10.7 %; Neutrophils # 7.85 10^3/uL (1.8-7.7); Neutrophils % 76.6 %; Nucleated Red Blood Cells % 0 %; Platelet Count 293 10^3/cmm (130-400); Red Blood Count 4.71 10^6/uL (4.1-5.3); Red Cell Distribution Width 13.1 % (12.1-15.1); White Blood Count 10.3 10^3/uL (4.0-10.0)
[2022-11-08 12:29] LABS: Erythrocyte Sedimentation Rate 44 mm/hr (0-15)
[2022-11-08 12:43] LABS: Lactic Sepsis W/Reflex 1.7 mmol/L (0.5-2.2)
[2022-11-08 12:44] LABS: Troponin(5th) Baseline 20 ng/L (0-10)
[2022-11-08 12:48] LABS: NT Pro B Type Natriuretic Pept 1527 pg/mL (0-450)
[2022-11-08 12:51] LABS: Add Urine Microscopic? YES; Bilirubin Urine 1+ (Negative); Blood Urine 2+ (Negative); Glucose Urine UA Norm (Normal); Ketones Urine 1+ (Negative); Leukocyte Esterase Urine 2+ (Negative); Nitrate Urine Negative (Negative); Protein Urine Trace (Negative); Urine Appearance Hazy (CLEAR); Urine Color Yellow (Yellow); Urobilinogen Urine 4 mg/dL (Negative); pH Urine 5 (5-7)
[2022-11-08 12:53] LABS: Bacteria Urine 3+ /hpf; Squamous Epithelial Cell Urine 15-25 /hpf (0-5); WBC Urine 15-25 /hpf (0-5)
[2022-11-08 12:54] LABS: Add Urine Culture? No
[2022-11-08] MEDS: levalbuterol 1.25 mg/3 mL Neb INHALATION (12:55)
[2022-11-08 13:00] LABS: Alanine Aminotransferase 18 U/L (0-33); Albumin Level 3.6 g/dL (3.5-5.2); Alkaline Phosphatase 140 U/L (35-105); Anion Gap 16.9 (5-19); Aspartate Amino Transferase 27 U/L (0-32); Blood Urea Nitrogen 9 mg/dL (8-23); C Reactive Protein 230.9 mg/L (0.0-4.9); Calcium 9.6 mg/dL (8.5-10.5); Carbon Dioxide 25 mmol/L (22-29); Chloride 99 mmol/L (98-107); Creatinine Clr Calc Pharmacy 56.3635; Globulin 3.5 g/dL (1.3-4.6); Glucose 102 mg/dL (65-115); Osmolality Calculated 283 mOsm/kg (285-295); Potassium 3.9 mmol/L (3.5-5.1); Sodium 137 mmol/L (136-145); Total Bilirubin 0.5 mg/dL (0.15-1.2); Total Protein 7.1 g/dL (6.6-8.7)
--- NOTE | 2022-11-08 13:54 | PC.PHAR ---
PTS VERIFIED PTS MEDICATIONS-PTS STATES THE PT IS NO LONGER TAKING METFORMIN ER 500MG DAILY EXT SHOWS LAST FILLED 10/27/22 30D/S PTS STATES THE PT STOP TAKING 2 WEEKS AGO STATES METFORMIN MAKES HER SICK-NOTES ARE MADE IN THE PHARMACY COMMENTS
[2022-11-08] MEDS: dilTIAZem 5 mg/mL SDV 5 mL 15 MG IVP (14:24)
[2022-11-08 14:36] LABS: Troponin 5 2HR 17.75 ng/L (0-10)
[2022-11-08 14:51] LABS: Troponin 5 2HR Delta -2.25 ABS# (0-10)
--- NOTE | 2022-11-08 16:29 | P.HP_ITS ---
Providers/Chief Complaint Admitting Physician: Rinku Jj Primary Care Provider: Alison Ramos MD Chief Complaint: sob, weak History of Present Illness 81-year-old lady with history of atrial fibrillation, on anticoagulation with Eliquis, chronic systolic CHF, COPD, HTN, HLD, lymphedema was started on Omnicef by PCP for pneumonia earlier this week which she has been taking, however has had worsening productive cough, increasing shortness of breath, fatigue, subject gildardo fevers. Has had upper back pain as well. Also had diarrhea and C. difficile stool had been requested. In ER with atrial fibrillation with RVR, heart rate in 1 teens, started on Cardizem drip, with right upper lobe, right lower lobe infiltrates on x-ray. Loose yellow stool in ER. Review of Systems Const: Reports: fatigue and malaise ENMT: Denies: throat pain Card: Denies: chest pain, edema, pre-syncope or dyspnea on exertion Resp: Reports: dyspnea, productive cough and change in phlegm color; Denies: hemoptysis GI: Denies: abdominal pain, nausea, vomiting, diarrhea, constipation, hemat ochezia or melena : Denies: flank pain, urinary frequency or hematuria Musc: Denies: back pain, joint swelling or joint redness Skin/Breast: Denies: rash or new lesions Neuro: Denies: headache(s) Medications/Allergies Home Medications Medication Instructions Recorded Confirmed Last Taken Type apixaban 5 mg tablet (Eliquis) 5 mg PO BID 04/06/19 11/08/22 11/08/22 History digoxin 125 mcg (0.125 mg) tablet 125 mcg PO QAM 04/06/19 11/08/22 11/08/22 History gabapentin 600 mg tablet 600 mg PO TID 04/06/19 11/08/22 11/08/22 08:30 History levothyroxine 88 mcg tablet 88 mcg PO QAM 04/06/19 11/08/22 11/08/22 History loratadine 10 mg tablet 10 mg PO DAILY PRN Allergy Symptoms 04/06/19 11/08/22 01/13/22 History mirabegron 50 mg tablet,extended 50 mg PO QAM 04/06/19 11/08/22 11/08/22 History release 24 hr (Myrbetriq) cholecalciferol (vitamin D3) 1,250 50,000 unit PO Q7D 05/11/19 11/08/22 11/02/22 History mcg (50,000 unit) capsule duloxetine 60 mg capsule,delayed 60 mg PO QAM 05/11/19 11/08/22 11/08/22 History release (Cymbalta) pravastatin 20 mg tablet 20 mg PO BEDTIME 05/11/19 11/08/22 11/07/22 History trazodone 50 mg tablet 25 - 50 mg PO BEDTIME 05/11/19 11/08/22 02/15/21 History fluticasone propionate 50 1 - 2 spray intranasal DAILY PRN 09/09/19 11/08/22 02/17/20 History mcg/actuation nasal Nasal Congestion spray,suspension (Flonase Allergy Relief) nitroglycerin 0.4 mg sublingual 0.4 mg sublingual Q5M PRN chest 09/09/19 11/08/22 12/04/20 Rx tablet pain #30 tabs potassium chloride 20 mEq 20 meq PO 5XD 02/18/20 11/08/22 11/08/22 08:30 History tablet,extended release ONLY 1 DOSE TODAY hydrocodone 10 mg-acetaminophen 1 tab PO TID PRN Pain 12/05/20 11/08/22 11/08/22 History 325 mg tablet sodium chloride-potassium chloride 1 tab PO QAM 02/16/21 11/08/22 11/08/22 History 287 mg-180 mg-15 mg tablet (Thermotabs) umeclidinium 62.5 mcg-vilanterol 1 inh inhalation Q24H 04/05/21 11/08/22 01/13/22 History 25 mcg/actuation powdr for inhalation (Anoro Ellipta) amlodipine 10 mg tablet 10 mg PO QAM 01/14/22 11/08/22 11/08/22 History montelukast 10 mg tablet 10 mg PO QAM 01/14/22 11/08/22 11/08/22 History tizanidine 2 mg capsule 2 mg PO BID PRN Spasms 01/14/22 11/08/22 Unknown History triamcinolone acetonide 0.1 % 1 applic topical TID PRN Rash 01/14/22 11/08/22 Unknown History topical ointment ondansetron 8 mg disintegrating 8 mg PO Q8H PRN nausea and 01/15/22 11/08/22 U nknown Rx tablet vomiting #21 tabs ondansetron 4 mg disintegrating 4 mg PO Q8H PRN nausea and 04/20/22 11/08/22 Unknown Rx tablet vomiting #15 tabs albuterol sulfate 90 mcg/actuation 2 puff inhalation QID PRN 11/08/22 11/08/22 Unknown History aerosol inhaler Shortness Of Breath alendronate 70 mg tablet 70 mg PO Q7D 11/08/22 11/08/22 11/02/22 History cefdinir 300 mg capsule 300 mg PO BID 11/08/22 11/08/22 11/08/22 08:30 History denosumab 60 mg/mL subcutaneous See Rx Instructions .Route .COMPLEX 11/08/22 11/08/22 Unknown History syringe (Prolia) donepezil 10 mg tablet 10 mg PO QAM 11/08/22 11/08/22 11/08/22 History furosemide 20 mg tablet 20 mg PO QAM 11/08/22 11/08/22 11/08/22 History lisinopril 10 mg tablet 10 mg PO BID 11/08/22 11/08/22 11/08/22 History Allergies Allergy/AdvReac Type Severity Reaction Status Date / Time No Known Allergies Allergy Verified 09/11/22 09:00 PFSH Acute PFSH: Medical History (Updated 11/08/22 @ 21:26 by Rinku Jj MD) Abdominal hernia Age related osteoporosis Anal fissure Arthritis Atrial fibrillation with RVR Chronic back pain Chronic systolic (congestive) heart failure COPD (chronic obstructive pulmonary disease) COVID DDD (degenerative disc disease) Dementia Diverticulitis DJD (degenerative joint disease) Dyspnea on exertion Essential hypertension Gastroenteritis History of amputation of toe History of colon polyps Hx of fracture of ankle Hx of fracture of tibia Hypothyroidism Insomnia Lymphedema Lymphedema of both lower extremities Mixed hyperlipidemia Mixed incontinence Peripheral edema Pulmonary nodule Restless legs Sliding hiatal hernia Venous stasis dermatitis Surgical History (Updated 11/08/22 @ 21:26 by Rinku Jj MD) History of bladder surgery History of colonoscopy years ago History of hysterectomy Hx of blepharoplasty Family History Sister Stroke CAD (coronary artery disease) [place] @ 75 Hypertension Brother Cancer Father Cancer Social History Smoking and tobacco status: never smoked Second hand smoke exposure: No Smoking risk assessment/counseling performed?: No Alcohol intake: never Desire information about alcohol rehabilitation?: No Counseling given: No Substance/Drug Use: never Desire information about substance/drug rehabilitation?: No Counseling given: No Adopted: No Caregiver/support person: No Lives independently: Yes Household members: spouse Housing: House Marital status: service: No Current occupational status: retired Do you think of yourself as: Straight/Heterosexual Current gender identity: Female Vitals/I&O/Wt Last Vital Signs Temp 98.3 F 11/08/22 11:09 Pulse 88 11/08/22 16:00 Resp 30 H 11/08/22 16:00 BP 130/82 11/08/22 16:00 Pulse Ox 91 11/08/22 16:00 O2 Del Method Room Air 11/08/22 12:55 Weight last 48 hrs Weight 67.585 kg Physical Exam Const: COMMON NORMALS: patient oriented x3 and alert GENERAL APPEARANCE: cooperative ORIENTATION/CONSCIOUSNESS: Yes awake HENMT: COMMON NORMALS: oropharynx normal Neck/C-Spine: COMMON NORMALS: no JVD Resp: COMMON NORMALS: normal respiratory effort and clear to auscultation bilaterally AUSCULTATION: clear to auscultation bilaterally Cardio: COMMON NORMALS: no JVD, regular rhythm, S1 normal heart sound present, S2 normal heart sound present and No murmurs present (Cardio) RHYTHM: regular rhythm HEART SOUNDS: S1 normal heart sound present and S2 normal heart sound present GI: COMMON NORMALS: Normal to inspection, nondistended, normoactive bowel sounds present, Soft to palpation and non-tender PALPATION: Yes Soft to palpation Extremity: COMMON NORMALS: no joint enlargement and no pedal edema Neuro: COMMON NORMALS: patient oriented x3 and moves all extremities SENSORIUM/ORIENTATION: Yes alert Skin: COMMON NORMALS: no rashes or lesions noted GENERAL SKIN EXAM: no rashes or lesions noted Data 11/08/22 11:50 11/08/22 11:50 Micro: Microbiology 11/08/22 14:06 Blood Culture - Preliminary Blood SPECIMEN COLLECTED 11/08/22 11:50 Blood Culture - Preliminary Blood SPECIMEN COLLECTED A&P Assessment and plan (1) Community acquired pneumonia: Appears to be pneumonia, possibly atypical, but cannot exclude progression of interstitial lung disease. Does have productive cough, has been having w orsening dyspnea. Did not respond to outpatient treatment. Obtained COVID PCR panel, not remarkable. For now started empirically on antibiotics. Mild leukocytosis 10.3, prominently neutrophilic 7.85. No noted eosinophils. Will assess response to treatment, if not responding consider pulmonology consultation on Thursday when available Noted tachypnea 26. She is on anticoagulation with Eliquis, low likelihood of PE. At risk of progression to respiratory deterioration with lack of response to outpatient therapy. Treat and monitor in the hospital. (2) Diarrhea: Suspected C. difficile colitis with recent antibiotic, several liquid stools per day. Noted positive PCR, negative toxin A antigen, however, given symptomatic, recent antibiotic, would suspect active infection. Started on vancomycin. As she is requiring treatment with antibiotics as above, at risk of severe C. difficile infection with antibiotics. (3) Paroxysmal atrial fibrillation with RVR: A-fib with RVR, 100 and teens in ER, Received IV Cardizem push. Resume oral digoxin. Treat the above. Monitor on telemetry on CSU. Check magnesium. Complete troponin EKG series, so far not suggestive of acute MA. Mild elevation, without peak. No chest pain. Plan Generalized weakness: Secondary to the above. COPD Arthritis HTN: Monitor blood pressures, continue amlodipine, lisinopril Hypothyroidism: Resume levothyroxine HLD: Continue statin RLS Other medical problems Discussed with ER physician. Attestations Medical Necessity Statement*: Place in observation for additional assessment management of community-acquired pneumonia not responsive to outpatient treatment, C. difficile colitis, paroxysmal A-fib with RVR. Diagnoses Community acquired pneumonia J18.9 Diarrhea R19.7 Paroxysmal atrial fibrillation with RVR I48.0
[2022-11-08 17:37] LABS: Adenovirus Not Detected (NOT DETECT); Chlamydia Pneumoniae Not Detected (NOT DETECT); Coronavirus 229E,HKU1,NL63,OC4 Not Detected (NOT DETECT); Human Metapneumovirus Not Detected (NOT DETECT); Human Rhinovirus/Enterovirus Not Detected (NOT DETECT); Influenza A Not Detected (NOT DETECT); Influenza A H1 Not Detected (NOT DETECT); Influenza A H1-2009 Not Detected (NOT DETECT); Influenza A H3 Not Detected (NOT DETECT); Influenza B Not Detected (NOT DETECT); Mycoplasma Pneumoniae Not Detected (NOT DETECT); Parainfluenza Virus Type 1 Not Detected (NOT DETECT); Parainfluenza Virus Type 2 Not Detected (NOT DETECT); Parainfluenza Virus Type 3 Not Detected (NOT DETECT); Parainfluenza Virus Type 4 Not Detected (NOT DETECT); Respiratory Syncytial Virus A Not Detected (NOT DETECT); Respiratory Syncytial Virus B Not Detected (NOT DETECT); SARS-COV-2 Not Detected (NOT DETECT)
[2022-11-08] MEDS: apixaban 5 mg Tablet PO (18:26)
[2022-11-08] MEDS: vancomycin 1,000 MG in sodium chloride 0.9% 250 ML 250 MG IV (18:26)
[2022-11-08] MEDS: lisinopril 10 mg Tablet PO (18:26)
[2022-11-08] MEDS: cefepime 1,000 MG in sodium chloride 0.9% (plus) 50 ML 100 MG IV (18:26)
[2022-11-08 19:49] LABS: Troponin 5 6HR 18.83 ng/L (0-10)
[2022-11-08 19:54] LABS: Troponin 5 6HR Delta -1.17 ng/L (0-12)
[2022-11-08] MEDS: gabapentin 300 mg Capsule 600 MG PO (20:41)
[2022-11-08] MEDS: trazodone 50 mg Tablet 25 MG PO (20:42)
[2022-11-08] MEDS: atorvastatin 40 mg Tablet 20 MG PO (20:42)
[2022-11-09] VITALS (12 sets, daily range): BP systolic 103–160; BP diastolic 69–88; PULSE 71–123; RESP 15–25; TEMP 36.5–37.1; O2SAT 92–94
[2022-11-09] MEDS: tizanidine 4 mg Tablet 2 MG PO (00:02)
[2022-11-09 03:32] LABS: Basophils % 0.4 %; Eosinophils # 0.3 10^3/uL (0.0-0.8); Eosinophils % 2.9 %; Hematocrit 36.4 % (37.0-47.0); Hemoglobin 11.5 g/dL (11.5-15.3); Lymphocytes # 1.4 10^3/uL (0.8-4.8); Lymphocytes % 13.2 %; Mean Corpuscular HGB Conc 31.6 g/dL (30.0-36.0); Mean Corpuscular Hemoglobin 29.3 pg (28.0-34.0); Mean Corpuscular Volume 92.6 fl (81-99); Mean Platelet Volume 9.9 fL (7.4-10.4); Monocytes # 1.3 10^3/uL (0.2-0.9); Monocytes % 12.1 %; Neutrophils # 7.43 10^3/uL (1.8-7.7); Neutrophils % 70.4 %; Nucleated Red Blood Cells % 0 %; Platelet Count 270 10^3/cmm (130-400); Red Blood Count 3.93 10^6/uL (4.1-5.3); Red Cell Distribution Width 13.1 % (12.1-15.1); White Blood Count 10.6 10^3/uL (4.0-10.0)
[2022-11-09 03:54] LABS: Alanine Aminotransferase 15 U/L (0-33); Alkaline Phosphatase 111 U/L (35-105); Anion Gap 11.5 (5-19); Aspartate Amino Transferase 28 U/L (0-32); Blood Urea Nitrogen 8 mg/dL (8-23); Calcium 9.7 mg/dL (8.5-10.5); Carbon Dioxide 27 mmol/L (22-29); Chloride 105 mmol/L (98-107); Creatinine Clr Calc Pharmacy 56.3635; Globulin 2.8 g/dL (1.3-4.6); Glucose 131 mg/dL (65-115); Osmolality Calculated 290 mOsm/kg (285-295); Potassium 3.5 mmol/L (3.5-5.1); Sodium 140 mmol/L (136-145); Total Bilirubin 0.4 mg/dL (0.15-1.2); Total Protein 5.8 g/dL (6.6-8.7)
[2022-11-09] MEDS: duloxetine 60 mg Capsule PO (05:32)
[2022-11-09] MEDS: FUROsemide 20 mg Tablet PO (05:32)
[2022-11-09] MEDS: donepezil 5 MG Tablet 10 MG PO (05:32)
[2022-11-09] MEDS: cefepime 1,000 MG in sodium chloride 0.9% (plus) 50 ML 100 MG IV ×2 (05:32→16:43)
[2022-11-09] MEDS: amlodipine 10 mg Tablet PO (05:32)
[2022-11-09] MEDS: montelukast sodium 10 mg Tablet PO (05:33)
[2022-11-09] MEDS: digoxin 125 mcg Tablet PO (05:33)
[2022-11-09] MEDS: levothyroxine 88 mcg Tablet PO (05:33)
[2022-11-09] MEDS: gabapentin 300 mg Capsule 600 MG PO ×2 (09:13→20:06)
[2022-11-09] MEDS: apixaban 5 mg Tablet PO ×2 (09:13→17:44)
[2022-11-09] MEDS: methylPREDNISolone sod succ 40 MG in water for injection-sterile 1 ML 12 MG IVP ×3 (09:14→23:39)
[2022-11-09] MEDS: metoprolol tartrate 25 mg Tablet PO ×2 (09:14→20:06)
[2022-11-09] MEDS: lisinopril 10 mg Tablet PO ×2 (09:14→17:44)
[2022-11-09] MEDS: vancomycin 1,000 MG in sodium chloride 0.9% 250 ML 250 MG IV (12:42)
--- NOTE | 2022-11-09 18:07 | P.PN_ITS ---
Subjective Subjective: Continues to feel about the same, states she is not feeling better. Continues to have productive cough, loose stool. Vitals/I&O/Wt Last Vital Signs Temp 97.8 F 11/09/22 16:00 Pulse 92 11/09/22 16:00 Resp 24 H 11/09/22 16:00 BP 160/75 11/09/22 16:00 Pulse Ox 93 11/09/22 16:00 O2 Del Method Room Air 11/09/22 16:00 11/09/22 11/09/22 11/09/22 06:59 14:59 22:59 Intake Total 890 / 1910 611 / 611 169 / 780 Output Total 250 / 250 Balance 640 / 1660 611 / 611 169 / 780 Weight last 48 hrs Weight 67.585 kg Physical Exam Const: COMMON NORMALS: patient oriented x3 and alert GENERAL APPEARANCE: cooperative ORIENTATION/CONSCIOUSNESS: Yes awake HENMT: COMMON NORMALS: oropharynx normal Neck/C-Spine: COMMON NORMALS: no JVD Resp: COMMON NORMALS: normal respiratory effort AUSCULTATION: wheezes (Mild wheeze) Cardio: COMMON NORMALS: no JVD, regular rhythm, S1 normal heart sound present, S2 normal heart sound present and No murmurs present (Cardio) RHYTHM: regular rhythm HEART SOUNDS: S1 normal heart sound present and S2 normal heart sound present GI: COMMON NORMALS: Normal to inspection, nondistended, normoactive bowel sounds present, Soft to palpation and non-tender PALPATION: Yes Soft to palpation Extremity: COMMON NORMALS: no joint enlargement and no pedal edema Neuro: COMMON NORMALS: patient oriented x3 and moves all extremities SENSORIUM/ORIENTATION: Yes alert Skin: COMMON NORMALS: no rashes or lesions noted GENERAL SKIN EXAM: no rashes or lesions noted Data 11/09/22 02:54 11/09/22 02:54 Micro: Microbiology 11/08/22 14:06 Blood Culture - Preliminary Blood NEGATIVE TO DATE 11/08/22 11:50 Blood Culture - Preliminary Blood NEGATIVE TO DATE 11/08/22 12:30 Clostridioides difficile Toxins A&B (PCR) - Final Stool Routine Collection C.difficile Toxin B Gene (PCR) - Final A&P Assessment and plan (1) Community acquired pneumonia: So far without improvement, although has not been requiring oxygen. Tomorrow consider touching base with pulmonology with concern for atypical pneumonia with worsening despite outpatient treatment, versus possible interstitial lung disease, consideration of consultation versus early outpatient follow-up. For now continue IV antibiotics. With concern for concomitant COPD exacerbation added Solu-Medrol as well 40 mg every 8 hours. Add DuoNebs. Appears to be pneumonia, possibly atypical, but cannot exclude progression of interstitial lung disease. Does have productive cough, has been having worsening dyspnea. Did not respond to outpatient treatment. Obtained COVID PCR panel, not remarkable. For now started empirically on antibiotics. Mild leukocytosis 10.6. No noted eosinophils. Will assess response to treatment, if not responding consider pulmonology consultation on Thursday when available Noted tachypnea 26. She is on anticoagulation with Eliquis, low likelihood of PE. At risk of progression to respiratory deterioration with lack of response to outpatient therapy. Treat and monitor in the hospital. (2) Diarrhea: Suspected C. difficile colitis with recent antibiotic, several liquid stools per day. Noted positive PCR, negative toxin A antigen, however, given symptomatic, recent antibiotic, would suspect active infection. Started on vancomycin. As she is requiring treatment with antibiotics as above, at risk of severe C. difficile infection with antibiotics. (3) Paroxysmal atrial fibrillation with RVR: Heart rate overall better, but still got up to 120s today, start metoprolol 25 mg twice daily. Monitor heart rate, blood pressure. Continue digoxin. Follow- up chemistry for renal function. Monitor on telemetry. Requested magnesium. Troponin EKG series not suggestive of acute HI. Mild elevation, without peak. No chest pain. Plan Generalized weakness: Secondary to the above. Discussed with case management. COPD Arthritis HTN: Monitor blood pressures, continue amlodipine, lisinopril Hypothyroidism: Resume levothyroxine HLD: Continue statin RLS Other medical problems Attestations Medical Necessity Statement*: Continue hospitalization for assessment management of atypical worsened pneumonia not responsive to outpatient treatment, C. difficile colitis, paroxysmal A-fib with RVR. Diagnoses Community acquired pneumonia J18.9 Diarrhea R19.7 Paroxysmal atrial fibrillation with RVR I48.0
[2022-11-09] MEDS: azithromycin 500 MG in sodium chloride 0.9% 250 ML 250 MG IV (20:05)
[2022-11-09] MEDS: trazodone 50 mg Tablet 25 MG PO (20:06)
[2022-11-09] MEDS: atorvastatin 40 mg Tablet 20 MG PO (20:07)
[2022-11-09] MEDS: ipratropium-albuterol 3 mL Neb INHALATION (20:44)
[2022-11-10] VITALS (66 sets, daily range): BP systolic 91–142; BP diastolic 56–95; PULSE 68–109; RESP 13–25; TEMP 36.4–37.1; O2SAT 93–96
[2022-11-10 04:16] LABS: Basophils % 0.1 %; Hematocrit 40.4 % (37.0-47.0); Hemoglobin 12.6 g/dL (11.5-15.3); Lymphocytes # 0.8 10^3/uL (0.8-4.8); Mean Corpuscular HGB Conc 31.2 g/dL (30.0-36.0); Mean Corpuscular Hemoglobin 28.4 pg (28.0-34.0); Mean Corpuscular Volume 91.2 fl (81-99); Monocytes # 0.3 10^3/uL (0.2-0.9); Monocytes % 2.2 %; Neutrophils # 12.55 10^3/uL (1.8-7.7); Neutrophils % 90.9 %; Nucleated Red Blood Cells % 0 %; Platelet Count 349 10^3/cmm (130-400); Red Blood Count 4.43 10^6/uL (4.1-5.3); Red Cell Distribution Width 13.1 % (12.1-15.1); White Blood Count 13.8 10^3/uL (4.0-10.0)
[2022-11-10 04:38] LABS: Anion Gap 13.4 (5-19); Blood Urea Nitrogen 11 mg/dL (8-23); Calcium 9.8 mg/dL (8.5-10.5); Carbon Dioxide 26 mmol/L (22-29); Chloride 102 mmol/L (98-107); Creatinine Clr Calc Pharmacy 56.3635; Glucose 147 mg/dL (65-115); Osmolality Calculated 286 mOsm/kg (285-295); Potassium 4.4 mmol/L (3.5-5.1); Sodium 137 mmol/L (136-145)
[2022-11-10 04:39] LABS: Alanine Aminotransferase 16 U/L (0-33); Albumin Level 3.2 g/dL (3.5-5.2); Alkaline Phosphatase 116 U/L (35-105); Aspartate Amino Transferase 20 U/L (0-32); Globulin 3.4 g/dL (1.3-4.6); Total Bilirubin 0.4 mg/dL (0.15-1.2); Total Protein 6.6 g/dL (6.6-8.7)
[2022-11-10] MEDS: vancomycin 1,000 MG in sodium chloride 0.9% 250 ML 250 MG IV (04:58)
[2022-11-10] MEDS: donepezil 5 MG Tablet 10 MG PO (04:59)
[2022-11-10] MEDS: duloxetine 60 mg Capsule PO (04:59)
[2022-11-10] MEDS: cefepime 1,000 MG in sodium chloride 0.9% (plus) 50 ML 100 MG IV ×2 (04:59→17:28)
[2022-11-10] MEDS: amlodipine 10 mg Tablet PO (05:00)
[2022-11-10] MEDS: digoxin 125 mcg Tablet PO (05:00)
[2022-11-10] MEDS: FUROsemide 20 mg Tablet PO (05:00)
[2022-11-10] MEDS: levothyroxine 88 mcg Tablet PO (05:00)
[2022-11-10] MEDS: montelukast sodium 10 mg Tablet PO (05:00)
[2022-11-10] MEDS: ipratropium-albuterol 3 mL Neb INHALATION ×3 (07:51→20:12)
[2022-11-10] MEDS: lisinopril 10 mg Tablet PO ×2 (09:42→17:29)
[2022-11-10] MEDS: apixaban 5 mg Tablet PO ×2 (09:42→17:29)
[2022-11-10] MEDS: methylPREDNISolone sod succ 40 MG in water for injection-sterile 1 ML 12 MG IVP (09:42)
[2022-11-10] MEDS: gabapentin 300 mg Capsule 600 MG PO ×3 (09:43→20:10)
[2022-11-10] MEDS: metoprolol tartrate 25 mg Tablet PO ×2 (09:43→20:10)
--- NOTE | 2022-11-10 13:32 | CTR_ITS ---
PROCEDURE INFORMATION: Exam: CT Chest Without Contrast; Diagnostic Exam date and time: 11/10/2022 3:24 PM Age: 81 years old Clinical indication: Other: Worsening ild vs consolidation TECHNIQUE: Imaging protocol: Diagnostic computed tomography of the chest without contrast. Radiation optimization: All CT scans at this facility use at least one of these dose optimization techniques: automated exposure control; mA and/or kV adjustment per patient size (includes targeted exams where dose is matched to clinical indication); or iterative reconstruction. REPORTING DATA: Count of CT and Cardiac NM exams in prior 12 months: This patient has received 7 known CTs and 0 known cardiac nuclear medicine studies in the 12 months prior to the current study. COMPARISON: CT chest w con* [id number] 04/21/2022 3:50 PM RADIATION DOSE METRICS: Total DLP (mGy-cm): 345.09 FINDINGS: Lungs: New masslike density involving the right lower lobe measuring 16 x 8 mm image . Previously seen heterogenicity of the lungs have resolved. I suspect previously that was a pneumonitis. There is now a focal consolidation abutting the major fissure involving the posterior aspect of the right upper lobe possibly a focal pneumonia. Masslike consolidation/infiltrate is seen within the superior segment of the left lower lobe which is new as well as a small infiltrate posteriorly within the left upper lobe. Pleural spaces: Small possible air pleural thickening measuring 3 x 2 mm in the left lung image /. Heart: Cardiomegaly. Small pericardial effusion although this appears smaller now only 4 mm thick. Lymph nodes: Numerous mediastinal subcentimeter stable lymph nodes. Vasculature: Ascending aortic aneurysm at 43 x 44 mm. 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 Bones/joints: Stable spine without acute fracture. Soft tissues: Unremarkable. CT/CT chest wo con [id number] IMPRESSION: 1. New masslike density involving the right lower lobe with consolidative infiltrates in the left lower lobe and right upper lobe. Small infiltrate noted within the left upper lobe. 2. Stable ascending aortic aneurysm. 3. Consider repeat examination following medical therapy to determine chiefly if the lesion in the right lower lobe is an infiltrate or true mass. 4. Decreased pericardial effusion.
--- NOTE | 2022-11-10 14:02 | PM.PN ---
Subjective Subjective: States that her breathing is improving. Diarrhea is resolving. No other new complaints today. Medications: Reviewed: Yes Vitals/I&O/Wt Last Vital Signs Temp 98.0 F 11/10/22 08:00 Pulse 78 11/10/22 12:35 Resp 17 11/10/22 10:55 BP 115/83 11/10/22 12:40 Pulse Ox 95 11/10/22 08:00 O2 Del Method Room Air 11/10/22 08:00 11/09/22 11/10/22 11/10/22 22:59 06:59 14:59 Intake Total 1509 / 2120 501 / 2621 361 / 361 Balance 1509 / 2120 501 / 2621 361 / 361 Physical Exam Narrative: General: No acute distress, AO x3 HEENT: PERRLA, pupils bilaterally equal and reactive, pallors not present Chest: Normal vesicular breath sounds, no added sounds, equal good air entry bilaterally CVS: S1-S2 regular, no murmurs, no tachycardia, no gallops, no rubs Abdomen: Soft, nontender, no organomegaly, bowel sounds present Neuro: No focal deficits, no facial deformity, AO x3, power 5/5 in all limbs Data 11/10/22 03:16 11/10/22 03:16 Micro: Microbiology 11/08/22 14:06 Blood Culture - Preliminary Blood NEGATIVE TO DATE 11/08/22 11:50 Blood Culture - Preliminary Blood NEGATIVE TO DATE A&P Assessment and plan (1) Community acquired pneumonia: Patient is currently on treatment with IV antibiotics for the same given that recently failed outpatient course of cefdinir. Currently on cefepime, vancomycin and azithromycin for atypical coverage. Check urine bacterial antigen urine Legionella antigen and MRSA PCR. Based on these above tests will narrow down antibiotics. Chest x-ray shows right-sided developing consolidation in the upper and lower lobes. Background of interstitial lung disease noted. CT chest ordered today for comparative assessment for worsening possibly worsening interstitial lung disease versus organizing pneumonia. Without contrast CT ordered, less likely to be PE given that patient is on Eliquis as outpatient. Chest is clear to auscultation today, narrow steroids down to prednisone 40 mg daily Continue scheduled DuoNeb nebulization. (2) Paroxysmal atrial fibrillation with RVR: Heart rate overall better after starting metoprolol 25 mg twice daily. Monitor heart rate, blood pressure. Continue digoxin. Follow-up chemistry for renal function. Monitor on telemetry. Troponin EKG series not suggestive of acute ME. Mild elevation, without peak. No chest pain. (3) C. difficile diarrhea: Continue p.o. vancomycin, diarrhea is resolved today. Plan Generalized weakness: Secondary to the above. Discussed with case management. COPD Arthritis HTN: Monitor blood pressures, continue amlodipine, lisinopril Hypothyroidism: Resume levothyroxine HLD: Continue statin RLS Other medical problems Attestations Medical Necessity Statement*: Narrow IV steroids to oral today, pending. Bacterial and Legionella antigens to narrow down antibiotics, pending CT chest, if continues to improve clinically anticipate discharge in the upcoming 24 hours Coding Level of Care Code Acute Code for [facility] Diagnoses Community acquired pneumonia J18.9 Paroxysmal atrial fibrillation with RVR I48.0 C. difficile diarrhea A04.72
[2022-11-10] MEDS: tizanidine 4 mg Tablet 2 MG PO (20:10)
[2022-11-10] MEDS: atorvastatin 40 mg Tablet 20 MG PO (20:10)
[2022-11-10] MEDS: trazodone 50 mg Tablet 25 MG PO (20:11)
[2022-11-10] MEDS: HYDROcodone-acetaminophen 10-325 mg Tablet 1 TAB PO (20:11)
[2022-11-10] MEDS: azithromycin 500 MG in sodium chloride 0.9% 250 ML 250 MG PO (20:12)
[2022-11-10 23:29] LABS: Vancomycin Trough 9.2 ug/mL (10-15)
[2022-11-11] VITALS (13 sets, daily range): BP systolic 109–127; BP diastolic 65–78; PULSE 59–87; RESP 16–20; TEMP 36.4–36.7; O2SAT 93–98
[2022-11-11] MEDS: ipratropium-albuterol 3 mL Neb INHALATION ×2 (02:43→07:29)
[2022-11-11] MEDS: levothyroxine 88 mcg Tablet PO (04:51)
[2022-11-11] MEDS: cefepime 1,000 MG in sodium chloride 0.9% (plus) 50 ML 100 MG IV ×2 (04:51→17:09)
[2022-11-11] MEDS: amlodipine 10 mg Tablet PO (04:51)
[2022-11-11] MEDS: donepezil 5 MG Tablet 10 MG PO (04:51)
[2022-11-11] MEDS: montelukast sodium 10 mg Tablet PO (04:51)
[2022-11-11] MEDS: FUROsemide 20 mg Tablet PO (04:52)
[2022-11-11] MEDS: duloxetine 60 mg Capsule PO (04:52)
[2022-11-11 06:09] LABS: Basophils % 0.1 %; Hematocrit 35.3 % (37.0-47.0); Hemoglobin 11.2 g/dL (11.5-15.3); Lymphocytes # 1.2 10^3/uL (0.8-4.8); Lymphocytes % 5.7 %; Mean Corpuscular HGB Conc 31.7 g/dL (30.0-36.0); Mean Corpuscular Hemoglobin 29.4 pg (28.0-34.0); Mean Corpuscular Volume 92.7 fl (81-99); Mean Platelet Volume 9.6 fL (7.4-10.4); Monocytes # 1.3 10^3/uL (0.2-0.9); Monocytes % 6.2 %; Neutrophils # 18.31 10^3/uL (1.8-7.7); Nucleated Red Blood Cells % 0 %; Platelet Count 352 10^3/cmm (130-400); Red Blood Count 3.81 10^6/uL (4.1-5.3); Red Cell Distribution Width 13.3 % (12.1-15.1)
[2022-11-11 06:31] LABS: Alanine Aminotransferase 22 U/L (0-33); Albumin Level 2.9 g/dL (3.5-5.2); Alkaline Phosphatase 121 U/L (35-105); Anion Gap 11.1 (5-19); Aspartate Amino Transferase 35 U/L (0-32); Blood Urea Nitrogen 21 mg/dL (8-23); Calcium 9.4 mg/dL (8.5-10.5); Carbon Dioxide 25 mmol/L (22-29); Chloride 103 mmol/L (98-107); Creatinine Clr Calc Pharmacy 56.3635; Globulin 2.8 g/dL (1.3-4.6); Glucose 152 mg/dL (65-115); Osmolality Calculated 286 mOsm/kg (285-295); Potassium 4.1 mmol/L (3.5-5.1); Sodium 135 mmol/L (136-145); Total Bilirubin 0.2 mg/dL (0.15-1.2); Total Protein 5.7 g/dL (6.6-8.7)
--- NOTE | 2022-11-11 08:02 | PC.SOCIAL ---
IMM Update pg 2 of IMM not updated w/ patient @ this time as she is currently in observation status.
[2022-11-11] MEDS: lisinopril 10 mg Tablet PO ×2 (09:38→17:41)
[2022-11-11] MEDS: predniSONE 20 mg Tablet 40 MG PO (09:38)
[2022-11-11] MEDS: apixaban 5 mg Tablet PO ×2 (09:38→17:41)
[2022-11-11] MEDS: gabapentin 300 mg Capsule 600 MG PO ×3 (09:38→20:34)
[2022-11-11] MEDS: metoprolol tartrate 25 mg Tablet PO ×2 (09:48→20:30)
--- NOTE | 2022-11-11 18:49 | PM.PN ---
Subjective Subjective: Patient's white blood cell count today has trended up to 21,000. CT chest completed yesterday showed right lower lobe consolidation. Continues to be hemodynamically stable and afebrile. Medications: Reviewed: Yes Vitals/I&O/Wt Last Vital Signs Temp 97.9 F 11/11/22 08:00 Pulse 84 11/11/22 16:00 Resp 17 11/11/22 16:00 BP 115/74 11/11/22 16:00 Pulse Ox 95 11/11/22 12:00 O2 Del Method Room Air 11/11/22 16:00 11/11/22 11/11/22 11/11/22 06:59 14:59 22:59 Intake Total 50 / 1191 1100 / 1100 290 / 1390 Output Total 100 / 300 Balance -50 / 891 1100 / 1100 290 / 1390 Physical Exam Narrative: General: No acute distress, AO x3 HEENT: PERRLA, pupils bilaterally equal and reactive, pallors not present Chest: Normal vesicular breath sounds, no added sounds, equal good air entry bilaterally CVS: S1-S2 regular, no murmurs, no tachycardia, no gallops, no rubs Abdomen: Soft, nontender, no organomegaly, bowel sounds present Neuro: No focal deficits, no facial deformity, AO x3, power 5/5 in all limbs Data 11/11/22 05:40 11/11/22 05:40 Micro: Microbiology 11/10/22 14:44 MRSA Culture - Final Nose 11/10/22 22:55 Bacterial Antigens - Final Urine,Voided 11/10/22 22:55 Legionella Urinary Antigen - Final Urine,Voided A&P Assessment and plan (1) Community acquired pneumonia: Patient is currently on treatment with IV antibiotics for the same given that recently failed outpatient course of cefdinir. Currently on cefepime, vancomycin and azithromycin for atypical coverage. Check urine bacterial antigen urine Legionella antigen and MRSA PCR. Based on these above tests will narrow down antibiotics. Chest x-ray shows right-sided developing consolidation in the upper and lower lobes. Background of interstitial lung disease noted. CT chest ordered today for comparative assessment for worsening possibly worsening interstitial lung disease versus organizing pneumonia. Without contrast CT ordered, less likely to be PE given that patient is on Eliquis as outpatient. Chest is clear to auscultation today, narrow steroids down to prednisone 40 mg daily Continue scheduled DuoNeb nebulization. (2) Paroxysmal atrial fibrillation with RVR: Heart rate overall better after starting metoprolol 25 mg twice daily. Monitor heart rate, blood pressure. Continue digoxin. Follow-up chemistry for renal function. Monitor on telemetry. Troponin EKG series not suggestive of acute HI. Mild elevation, without peak. No chest pain. (3) C. difficile diarrhea: Continue p.o. vancomycin, diarrhea is resolved today. Plan Generalized weakness: Secondary to the above. Discussed with case management. COPD Arthritis HTN: Monitor blood pressures, continue amlodipine, lisinopril Hypothyroidism: Resume levothyroxine HLD: Continue statin RLS Other medical problems Plan for today: Cut steroids to prednisone 20mg daily. Monitor leukocytosis, if stable anticipate discharge in the upcoming 24 hrs Attestations Medical Necessity Statement*: montor leukocytosis, suspect steroid induced margination since otherwise stable, if continues to be clinically well anticipate discharge in the upcoming 24 hours with Coding Level of Care Code Acute Code for [facility] Diagnoses Community acquired pneumonia J18.9 Paroxysmal atrial fibrillation with RVR I48.0 C. difficile diarrhea A04.72
[2022-11-11] MEDS: azithromycin 250 mg Tablet 500 MG PO (20:30)
[2022-11-11] MEDS: acetaminophen 325 mg Tablet 650 MG PO (20:34)
[2022-11-11] MEDS: trazodone 50 mg Tablet 25 MG PO (20:35)
[2022-11-11] MEDS: atorvastatin 40 mg Tablet 20 MG PO (20:35)
--- NOTE | 2022-11-11 22:27 | PC.NURSE ---
This RN agrees with all documentation of Student nurse at this time.
[2022-11-12] VITALS (8 sets, daily range): BP systolic 99–127; BP diastolic 67–83; PULSE 56–80; RESP 16–22; TEMP 36.4–36.5; O2SAT 91–96
[2022-11-12] MEDS: FUROsemide 20 mg Tablet PO (04:44)
[2022-11-12] MEDS: donepezil 5 MG Tablet 10 MG PO (04:44)
[2022-11-12] MEDS: levothyroxine 88 mcg Tablet PO (04:44)
[2022-11-12] MEDS: amlodipine 10 mg Tablet PO (04:45)
[2022-11-12] MEDS: cefepime 1,000 MG in sodium chloride 0.9% (plus) 50 ML 100 MG IV (04:45)
[2022-11-12] MEDS: duloxetine 60 mg Capsule PO (04:45)
[2022-11-12] MEDS: digoxin 125 mcg Tablet PO (04:45)
[2022-11-12] MEDS: montelukast sodium 10 mg Tablet PO (04:45)
[2022-11-12 06:01] LABS: Basophils % 0.1 %; Hematocrit 37.7 % (36-47); Lymphocytes # 1.5 10^3/uL (0.8-4.8); Lymphocytes % 8.1 %; Mean Corpuscular HGB Conc 32.1 g/dL (30-55); Mean Corpuscular Hemoglobin 29.8 pg (27-33); Mean Corpuscular Volume 92.9 fl (85-98); Mean Platelet Volume 9.4 fL (7.4-10.4); Monocytes # 1.2 10^3/uL (0.2-0.9); Monocytes % 6.6 %; Neutrophils # 15.09 10^3/uL (1.8-7.7); Neutrophils % 84.1 %; Nucleated Red Blood Cells % 0 %; Platelet Count 403 10^3/cmm (157-399); Red Blood Count 4.06 10^6/uL (3.85-5.65); Red Cell Distribution Width 13.2 % (12.1-15.1); White Blood Count 17.93 10^3/uL (3.29-11.43)
[2022-11-12 06:36] LABS: Alanine Aminotransferase 38 U/L (0-33); Albumin Level 3.3 g/dL (3.5-5.2); Alkaline Phosphatase 111 U/L (35-105); Anion Gap 11.2 (5-19); Aspartate Amino Transferase 52 U/L (0-32); Blood Urea Nitrogen 23 mg/dL (8-23); Calcium 9.4 mg/dL (8.5-10.5); Carbon Dioxide 29 mmol/L (22-29); Chloride 103 mmol/L (98-107); Creatinine Clr Calc Pharmacy 56.3635; Globulin 2.8 g/dL (1.3-4.6); Glucose 114 mg/dL (65-115); Osmolality Calculated 293 mOsm/kg (285-295); Potassium 4.2 mmol/L (3.5-5.1); Sodium 139 mmol/L (136-145); Total Bilirubin 0.3 mg/dL (0.15-1.2); Total Protein 6.1 g/dL (6.6-8.7)
[2022-11-12] MEDS: lisinopril 10 mg Tablet PO (08:23)
[2022-11-12] MEDS: apixaban 5 mg Tablet PO (08:23)
[2022-11-12] MEDS: gabapentin 300 mg Capsule 600 MG PO (08:23)
[2022-11-12] MEDS: predniSONE 20 mg Tablet PO (08:24)
[2022-11-12] MEDS: metoprolol tartrate 25 mg Tablet PO (08:24)
--- NOTE | 2022-11-12 10:28 | PM.DCS ---
Discharge Providers Date of Admission: 11/08/22 21:20 Date of Discharge: November 12, 2022 Attending Provider at Admission: Rinku Jj Attending Provider at Discharge: Santa Cox MD Primary Care Provider: Alison Ramos MD Diagnoses at Discharge Discharge Diagnosis (1) Community acquired pneumonia: Status: Acute (2) Paroxysmal atrial fibrillation with RVR: Status: Acute (3) C. difficile diarrhea: Status: Acute Reason for Visit Reason for Visit: sob, weak Hospital Course Hospital Course 81-year-old lady with history of atrial fibrillation, on anticoagulation with Eliquis, chronic systolic CHF, COPD, HTN, HLD, lymphedema was started on Omnicef by PCP for pneumonia earlier this week which she has been taking, however has had worsening productive cough, increasing shortness of breath, fatigue, subjective fevers. Upon arrival she was noted to have diarrhea with subsequently tested C. difficile positive. She is on oral vancomycin for it currently. She had A-fib with RVR for which she required initiation of a Cardizem drip. Chest x-ray showed right upper lobe and right lower lobe infiltrates on chest x-ray with pneumonia. There was some concern for possibly worsening interstitial lung disease for which a CT of the chest was performed. Overall CT of the chest shows a right lower lobe consolidation which will need to be followed up in 3 to 4 weeks time to ensure clearance. If findings do not improve with antibiotic treatment then patient will likely need further evaluation for lung mass. She received inpatient treatment with IV antibiotics including cefepime and vancomycin and azithromycin. She improved clinically. She is saturating 94% on room air. Currently does not have a cough or sputum production. She is noted to have leukocytosis, however given overall clinical improvement suspect that this is margination from high-dose steroids that she received initially during the course of her admission due to concern for COPD exacerbation and interstitial lung disease. Steroids have been discontinued at discharge since patient is clinically much improved. Her A-fib with RVR was improved with Cardizem drip and thereafter transition to metoprolol. She is being discharged today in improved condition with recommendations to follow-up with PCP for serial imaging in 3 weeks to ensure clearance of her consolidation findings. Physical Exam Narrative: General: No acute distress, AO x3 HEENT: PERRLA, pupils bilaterally equal and reactive, pallors not present Chest: Normal vesicular breath sounds, no added sounds, equal good air entry bilaterally CVS: S1-S2 regular, no murmurs, no tachycardia, no gallops, no rubs Abdomen: Soft, nontender, no organomegaly, bowel sounds present Neuro: No focal deficits, no facial deformity, AO x3, power 5/5 in all limbs Extremities: no edema, clubbing or cyanosis Discharge Data Studies Completed and Pending Completed Studies During Hospitalization Category Date Time Status CT chest wo con [id number] Routine Cat Scan 11/10/22 13:32 Completed XR chest 2V* [id number] Stat Exams 11/08/22 11:18 Completed Pending at discharge Category Date Time Status Blood Culture Stat Lab 11/08/22 14:06 Results Radiology Impressions Chest X-Ray 11/08/22 11:18 IMPRESSION: Faint hazy opacities seen in the right upper lobe and peripheral right lower lobe. These were not seen on prior chest radiographs 04/21/2022 and 04/15/2022. Hazy ground-glass interstitial lung opacities were seen in this distribution on CT chest 04/21/2022. This may represent mild progression of chronic interstitial lung disease compared to 03/25/2022. This appearance would be atypical for pneumonia. Chest CT 11/10/22 13:32 IMPRESSION: 1. New masslike density involving the right lower lobe with consolidative infiltrates in the left lower lobe and right upper lobe. Small infiltrate noted within the left upper lobe. 2. Stable ascending aortic aneurysm. 3. Consider repeat examination following medical therapy to determine chiefly if the lesion in the right lower lobe is an infiltrate or true mass. 4. Decreased pericardial effusion. Laboratory Results WBC 17.93 10^3/uL (3.29-11.43) H 11/12/22 05:42 RBC 4.06 10^6/uL (3.85-5.65) 11/12/22 05:42 Hgb 12.10 g/dL (11.27-16.99) 11/12/22 05:42 Hct 37.7 % (36-47) 11/12/22 05:42 MCV 92.9 fl (85-98) 11/12/22 05:42 MCH 29.8 pg (27-33) 11/12/22 05:42 MCHC 32.1 g/dL (30-55) 11/12/22 05:42 RDW 13.2 % (12.1-15.1) 11/12/22 05:42 Plt Count 403 10^3/cmm (157-399) H 11/12/22 05:42 MPV 9.4 fL (7.4-10.4) 11/12/22 05:42 Neut % (Auto) 84.1 % 11/12/22 05:42 Lymph % (Auto) 8.1 % 11/12/22 05:42 [place] % (Auto) 6.6 % 11/12/22 05:42 Eos % (Auto) 0.0 % 11/12/22 05:42 Baso % (Auto) 0.1 % 11/12/22 05:42 Neut # (Auto) 15.09 10^3/uL (1.8-7.7) H 11/12/22 05:42 Lymph # (Auto) 1.5 10^3/uL (0.8-4.8) 11/12/22 05:42 [place] # (Auto) 1.2 10^3/uL (0.2-0.9) H 11/12/22 05:42 Eos # (Auto) 0.0 10^3/uL (0.0-0.8) 11/12/22 05:42 Baso # (Auto) 0.0 10^3/uL (0.0-0.1) 11/12/22 05:42 Nucleated RBC % (auto) 0 % 11/12/22 05:42 Nucleated RBCs # 0.0 /100WBC 11/12/22 05:42 ESR 44 mm/hr (0-15) H 11/08/22 11:50 Sodium 139 mmol/L (136-145) 11/12/22 05:42 Potassium 4.2 mmol/L (3.5-5.1) 11/12/22 05:42 Chloride 103 mmol/L (98-107) 11/12/22 05:42 Carbon Dioxide 29 mmol/L (22-29) 11/12/22 05:42 Anion Gap 11.2 (5-19) 11/12/22 05:42 BUN 23 mg/dL (8-23) 11/12/22 05:42 Creatinine 0.8 mg/dL (0.5-0.9) 11/12/22 05:42 GFR Calculation Not Reportable 11/12/22 05:42 Glucose 114 mg/dL (65-115) 11/12/22 05:42 Calculated Osmolality 293 mOsm/kg (285-295) 11/12/22 05:42 Lactic Acid 1.7 mmol/L (0.5-2.2) 11/08/22 11:50 Calcium 9.4 mg/dL (8.5-10.5) 11/12/22 05:42 Magnesium 2.0 mg/dL (1.7-2.3) 11/10/22 03:16 Magnesium Cancelled 11/10/22 03:16 Total Bilirubin 0.3 mg/dL (0.15-1.2) 11/12/22 05:42 AST 52 U/L (0-32) H 11/12/22 05:42 ALT 38 U/L (0-33) H 11/12/22 05:42 Alkaline Phosphatase 111 U/L (35-105) H 11/12/22 05:42 Troponin T Baseline 20 ng/L (0-10) H 11/08/22 11:50 Troponin T 120 Minute 17.75 ng/L (0-10) H 11/08/22 14:06 Delta Troponin T -2.25 ABS# (0-10) L 11/08/22 14:06 Troponin T Hi Sens 6Hr 18.83 ng/L (0-10) H 11/08/22 19:12 Troponin T Hi Sens 6Hr Delta -1.17 ng/L (0-12) L 11/08/22 19:12 C-Reactive Protein 230.9 mg/L (0.0-4.9) H 11/08/22 11:50 NT-Pro-B Natriuret Pep 1527 pg/mL (0-450) H 11/08/22 11:50 Total Protein 6.1 g/dL (6.6-8.7) L 11/12/22 05:42 Albumin 3.3 g/dL (3.5-5.2) L 11/12/22 05:42 Globulin 2.8 g/dL (1.3-4.6) 11/12/22 05:42 Procalcitonin 0.10 ng/mL (0-0.5) 11/08/22 11:50 Urine Color Yellow (Yellow) 11/08/22 12:30 Urine Appearance Hazy (CLEAR) A 11/08/22 12:30 Urine pH 5 (5-7) 11/08/22 12:30 Ur Specific May 1.020 (1.005-1.030) 11/08/22 12:30 Urine Protein Trace (Negative) 11/08/22 12:30 Urine Glucose (UA) Norm (Normal) 11/08/22 12:30 Urine Ketones 1+ (Negative) H 11/08/22 12:30 Urine Blood 2+ (Negative) H 11/08/22 12:30 Urine Nitrate Negative (Negative) 11/08/22 12:30 Urine Bilirubin 1+ (Negative) H 11/08/22 12:30 Urine Urobilinogen 4 mg/dL (Negative) H 11/08/22 12:30 Ur Leukocyte Esterase 2+ (Negative) H 11/08/22 12:30 Urine RBC 5-10 /hpf (0-2) H 11/08/22 12:30 Urine WBC 15-25 /hpf (0-5) H 11/08/22 12:30 Ur Squamous Epith Cells 15-25 /hpf (0-5) H 11/08/22 12:30 Amorphous Sediment Not Reportable 11/08/22 12:30 Urine Bacteria 3+ /hpf (NONE) H 11/08/22 12:30 Vancomycin Trough 9.2 ug/mL (10-15) L 11/10/22 23:00 Coronavirus 229E (PCR) Not detected (NOT DETECT) 11/08/22 14:53 SARS-CoV-2 (PCR) Not detected (NOT DETECT) 11/08/22 14:53 Vitals Last Vital Signs Temp 97.7 F 11/12/22 04:00 Pulse 72 11/12/22 08:54 Resp 17 11/12/22 08:54 BP 127/83 11/12/22 08:00 Pulse Ox 94 11/12/22 08:54 O2 Del Method Room Air 11/12/22 08:54 Discharge Plan Discharge Patient Disposition: Home Health Service Condition: Stable Prescriptions: New metoprolol tartrate 25 mg Tablet 25 mg PO QAM 30 Days Qty: 30 0RF metoprolol tartrate 25 mg tablet 12.5 mg PO QPM 30 Days Qty: 15 1RF levofloxacin 750 mg tablet 750 mg PO DAILY 5 Days Qty: 5 0RF vancomycin 125 mg capsule 125 mg PO Q6H 7 Days Qty: 28 0RF Continued Anoro Ellipta 62.5-25 mcg/actuation blister with device 1 inh inhalation Q24H levothyroxine 88 mcg tablet 88 mcg PO QAM digoxin 125 mcg (0.125 mg) tablet 125 mcg PO QAM Eliquis 5 mg tablet 5 mg PO BID gabapentin 600 mg tablet 600 mg PO TID loratadine 10 mg tablet 10 mg PO DAILY PRN (Reason: Allergy Symptoms) Myrbetriq 50 mg tablet extended release 24 hr 50 mg PO QAM ondansetron 8 mg tablet,disintegrating 8 mg PO Q8H PRN (Reason: nausea and vomiting) Qty: 21 0RF trazodone 50 mg Tablet 25 - 50 mg PO BEDTIME pravastatin 20 mg Tablet 20 mg PO BEDTIME duloxetine [Cymbalta] 60 mg Capsule,Delayed Release(Dr/Ec) 60 mg PO QAM cholecalciferol (vitamin D3) 1,250 mcg (50,000 unit) capsule 50,000 unit PO Q7D Rx Instructions: (ON SUNDAYS) hydrocodone-acetaminophen 10-325 mg tablet 1 tab PO TID PRN (Reason: Pain) Thermotabs 287-180-15 mg Tablet 1 tab PO QAM fluticasone propionate [Flonase Allergy Relief] 50 mcg/actuation [place],Suspension 1 - 2 spray INTRANASAL DAILY PRN (Reason: Nasal Congestion) nitroglycerin 0.4 mg tablet, sublingual 0.4 mg SUBLINGUAL Q5M PRN (Reason: chest pain) Qty: 30 0RF Rx Instructions: do not exceed 3 doses per episode potassium chloride 20 mEq Tablet Extended Release 20 meq PO 5XD amlodipine 10 mg Tablet 10 mg PO QAM montelukast 10 mg Tablet 10 mg PO QAM tizanidine 2 mg Capsule 2 mg PO BID PRN (Reason: Spasms) triamcinolone acetonide 0.1 % ointment 1 applic topical TID PRN (Reason: Rash) ondansetron 4 mg tablet,disintegrating 4 mg PO Q8H PRN (Reason: nausea and vomiting) Qty: 15 0RF donepezil 10 mg tablet 10 mg PO QAM alendronate 70 mg tablet 70 mg PO Q7D Rx Instructions: ON THURSDAY lisinopril 10 mg Tablet 10 mg PO BID furosemide 20 mg tablet 20 mg PO QAM albuterol sulfate 90 mcg/actuation HFA aerosol inhaler 2 puff INHALATION QID PRN (Reason: Shortness Of Breath) Prolia 60 mg/mL syringe See Rx Instructions .ROUTE .COMPLEX Rx Instructions: INJECT CONTENTS OF ONE PEN UNDER SKIN EVERY SIX MONTHS Discontinued cefdinir 300 mg capsule 300 mg PO BID Rx Instructions: FOR 10 DAYS (RX FILLED 11/05/22) Discharge Orders: Discharge Order (Routine); Ordered 11/12/22 Ordered By: Santa Cox Referrals: [facility] [place] Home Care ([facility]) [Outside] Alison Ramos MD [Primary Care Provider] - 3 weeks Discharge Diet: Usual diet Discharge Activity: Resume usual activity Patient Instructions: Heart Failure (DC), CHF Stoplight, Opioid Safety Discharge Attestations Time Spent in Discharge Care*: greater than 30 min Status at Discharge: Cognitive status at discharge: cognitively intact, Behavioral status at discharge: cooperative, Quality Metrics Clinical Quality Measures [ No reported AMI, CVA or VTE this stay] Coding Level of Care Code Acute Code for g Fwd Diagnoses Community acquired pneumonia J18.9 Paroxysmal atrial fibrillation with RVR I48.0 C. difficile diarrhea A04.72
== END 2022-11-12 12:58 | disposition home health service (06) ==
LOC: ER 14:03 → CSU 17:24
PROVIDERS: Admitting Provider Internal Medicine; Emergency Provider Physician Assistant; PCP Internal Medicine; Visit Provider Student in an Organized Health Care Education/Training Program
DX: J18.9 Pneumonia, unspecified organism (principal); I48.0 Paroxysmal atrial fibrillation; A04.72 Enterocolitis due to Clostridium difficile, not specified as recurrent; Z79.01 Long term (current) use of anticoagulants; I50.22 Chronic systolic (congestive) heart failure; J44.9 Chronic obstructive pulmonary disease, unspecified; E78.5 Hyperlipidemia, unspecified; I11.0 Hypertensive heart disease with heart failure; M19.90 Unspecified osteoarthritis, unspecified site; E03.9 Hypothyroidism, unspecified; I45.10 Unspecified right bundle-branch block
CPT/HCPCS: 36415; 71046; 71250; 80053; 80202; 81001; 83605; 83735; 83880; 84145; 84484; 85025; 85651; 86140; 86403; 87040; 87324; 87449; 87493; 87635; 87641; 93005; 94640; 96365; 96367; 96375; 99285; G0378; J0456; J0692; J2920; J3370; J3490; J7050; J7512; J7614; Q0144

== ENCOUNTER 2022-11-14 11:10 | Inpatient (IN) | payer MEDICARE, MEDICAID, SELFPAY ==
[2022-11-14] VITALS (16 sets, daily range): BP systolic 102–164; BP diastolic 60–98; PULSE 59–122; RESP 14–26; O2SAT 91–98; BMI 24.2
--- NOTE | 2022-11-14 11:17 | ECG_ITS ---
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 Measurements Intervals [place] Rate: 100 P: 0 SD: 0 QRS: 22 QRSD: 85 T: 39 QT: 351 QTc: 454 Interpretive Statements ATRIAL FIBRILLATION WITH RAPID VENTRICULAR RESPONSE SEPTAL MYOCARDIAL INFARCTION , PROBABLY OLD [40+ ms Q WAVE IN V1/V2] Compared to ECG 11/08/2022 11:49:33 Incomplete right bundle-branch block no longer present Left anterior fascicular block no longer present Myocardial infarct finding still present Electronically Signed On 11-14-2022 18:16:19 CDT by Vidal Christopher M.D. [email or web address]
--- NOTE | 2022-11-14 11:21 | XRR_ITS ---
PROCEDURE INFORMATION: Exam: XR Chest Exam date and time: 11/14/2022 11:39 AM Age: 81 years old Clinical indication: Dyspnea; Additional info: Dyspnea recent pneumonia TECHNIQUE: Imaging protocol: Radiologic exam of the chest. Views: 1 view. COMPARISON: CT chest con [id number] 11/10/2022 3:24 PM FINDINGS: Lungs: Unremarkable. No consolidation. Pleural spaces: Unremarkable. No pleural effusion. No pneumothorax. Heart/Mediastinum: Unremarkable. No cardiomegaly. Bones/joints: Unremarkable. XR/XR chest 1V portable [id number] IMPRESSION: No acute findings.
[2022-11-14 11:46] LABS: Basophils # 0.1 10^3/uL (0.0-0.1); Basophils % 0.4 %; Eosinophils # 0.2 10^3/uL (0.0-0.8); Eosinophils % 1.1 %; Hematocrit 47.8 % (36-47); Lymphocytes # 1.1 10^3/uL (0.8-4.8); Lymphocytes % 8.1 %; Mean Corpuscular HGB Conc 33.1 g/dL (30-55); Mean Corpuscular Volume 87.9 fl (85-98); Mean Platelet Volume 9.2 fL (7.4-10.4); Neutrophils # 11.49 10^3/uL (1.8-7.7); Nucleated Red Blood Cells % 0 %; Platelet Count 575 10^3/cmm (157-399); Red Blood Count 5.44 10^6/uL (3.85-5.65); Red Cell Distribution Width 12.7 % (12.1-15.1); White Blood Count 14.02 10^3/uL (3.29-11.43)
--- NOTE | 2022-11-14 11:49 | PC.PHAR ---
PT UNABLE TO VERIFY MEDICATIONS- CAN NOT CONTACT - MEDICATIONS VERIFIED USING EXTERNAL MED LIST AND PTS DISCHARGE ORDERS FROM [facility] TWO DAYS AGO
[2022-11-14] MEDS: dilTIAZem 5 mg/mL SDV 5 mL 10 MG IVP (12:02)
[2022-11-14 12:10] LABS: Digoxin 0.7 ng/mL (0.6-1.2)
[2022-11-14 12:21] LABS: Alanine Aminotransferase 66 U/L (0-33); Albumin Level 4.4 g/dL (3.5-5.2); Alkaline Phosphatase 137 U/L (35-105); Anion Gap 22.8 (5-19); Aspartate Amino Transferase 61 U/L (0-32); Blood Urea Nitrogen 16 mg/dL (8-23); Calcium 10.5 mg/dL (8.5-10.5); Carbon Dioxide 25 mmol/L (22-29); Chloride 94 mmol/L (98-107); Globulin 3.1 g/dL (1.3-4.6); Glucose 137 mg/dL (65-115); Magnesium 1.9 mg/dL (1.7-2.3); NT Pro B Type Natriuretic Pept 1962 pg/mL (0-450); Osmolality Calculated 287 mOsm/kg (285-295); Potassium 4.8 mmol/L (3.5-5.1); Sodium 137 mmol/L (136-145); Total Bilirubin 0.8 mg/dL (0.15-1.2); Total Protein 7.5 g/dL (6.6-8.7)
--- NOTE | 2022-11-14 12:22 | W.ED.WEAKNES ---
HPI - Weakness General: Chief complaint: Weakness Stated complaint: sob Time Seen by Provider: 11/14/22 11:11 History of Present Illness: Presents to the ER with complaints of weakness. EMS said she was short of breath patient is tachypneic with breathing rate of 26 breaths/min patient is on 2 L of oxygen per nasal cannula and keeping her O2 sat 90%. Patient is a heart rate of 122 beats a minute and is irregularly irregular in nature. EKG showed fibrillation with RVR. She is a very poor historian when asked the pain she says no but she does not really answer any questions other than that. It was noted the patient was just recently released from the hospital for pneumonia approximately 2 days ago and her diagnosis then was community-acquired pneumonia, paroxysmal atrial fibrillation with RVR, C. difficile, Review of Systems General: Reports: 10 or more systems reviewed and unremarkable except in HPI and below PFSH ED PFSH: Medical History Abdominal hernia Age related osteoporosis Anal fissure Arthritis Atrial fibrillation with RVR Chronic back pain Chronic systolic (congestive) heart failure COPD (chronic obstructive pulmonary disease) COVID DDD (degenerative disc disease) Dementia Diverticulitis DJD (degenerative joint disease) Dyspnea on exertion Essential hypertension Gastroenteritis History of amputation of toe History of colon polyps Hx of fracture of ankle Hx of fracture of tibia Hypothyroidism Insomnia Lymphedema Lymphedema of both lower extremities Mixed hyperlipidemia Mixed incontinence Peripheral edema Pulmonary nodule Restless legs Sliding hiatal hernia Venous stasis dermatitis Surgical History History of bladder surgery History of colonoscopy years ago History of hysterectomy Hx of blepharoplasty Family History Sister Stroke CAD (coronary artery disease) [place] @ 75 Hypertension Brother Cancer Father Cancer Social History Smoking and tobacco status: never smoked Second hand smoke exposure: No Smoking risk assessment/counseling performed?: No Alcohol intake: never Desire information about alcohol rehabilitation?: No Counseling given: No Substance/Drug Use: never Desire information about substance/drug rehabilitation?: No Counseling given: No Adopted: No Caregiver/support person: No Lives independently: Yes Household members: spouse Housing: House Marital status: service: No Current occupational status: retired Do you think of yourself as: Straight/Heterosexual Current gender identity: Female Physical Exam Const: COMMON NORMALS: no acute distress, average body habitus, healthy appearing, alert and well nourished HENMT: COMMON NORMALS: normocephalic, atraumatic, hearing grossly normal bilaterally, external ears normal, Normal external nose present and moist oral mucous membranes HEAD & SCALP: normocephalic and atraumatic NOSE: Normal external nose present EXTERNAL EAR: Yes external ears normal Eye: COMMON NORMALS: Equal, round and reactive pupils present, EOMs intact bilaterally, conjunctivae normal and no scleral icterus CONJUNCTIVA: Yes conjunctivae normal PUPIL: Yes Equal, round and reactive pupils present Neck/C-Spine: COMMON NORMALS: full ROM, no lymphadenopathy, supple, no meningeal signs, no JVD and Thyroid normal THYROID: Thyroid normal Chest: COMMONS NORMALS: normal inspection of the chest and normal palpation of entire chest wall Resp: COMMON NORMALS: normal respiratory effort (With a rate in the mid 20s), No retractions, No use of accessory muscles and clear to auscultation bilaterally AUSCULTATION: clear to auscultation bilaterally Cardio: COMMON NORMALS: no JVD; negative for regular rate (irRegularly irregular with a rate between 101 120 bpm) RATE: abnormal rate (irRegularly irregular with a rate between 101 120 bpm) GI: COMMON NORMALS: Normal to inspection, nondistended, normoactive bowel sounds present, Soft to palpation, non-tender, No hepatosplenomegaly present and no masses PALPATION: Yes Soft to palpation and Yes No hepatosplenomegaly present Neuro: SENSORIUM/ORIENTATION: Yes alert MENINGEAL SIGNS: Yes no meningeal signs Course Vital Signs: Vital signs: Vital Signs Pulse Rate 114 H 11/14/22 13:14 Respiratory Rate 20 H 11/14/22 13:14 Blood Pressure 140/98 11/14/22 13:14 Pulse Oximetry 92 11/14/22 13:14 Oxygen Delivery Me thod Nasal Cannula 11/14/22 12:43 Oxygen Flow Rate 2 11/14/22 12:43 MDM - Weakness Medical Decision Making Presents to the ER with complaints of weakness. Patient was just recently discharged from the ER for pneumonia, paroxysmal A-fib with RVR, ACDF, lab work was obtained which showed a elevating BNP of approximately 1900. He EKG showed patient is in our A-fib with RVR with a rate of about 140 beats a minute. Patient was given 10 mg Cardizem IV push which decreased the rate to about 120. Then placed was patient on a Cardizem drip. Dr. Herrera was consulted who agreed to inpatient admission to [facility] for further evaluation and treatment. Differential Diagnosis Unlikely acute myocardial infarction, anemia, hypoglycemia, hypothyroidism, rhabdomyolysis, sepsis or dehydration Medical Records I reviewed the patient's medical records. Lab Data I reviewed the patient's lab results. 11/14/22 11:30 11/14/22 11:30 Radiology Impressions Chest X-Ray 11/14/22 11:21 IMPRESSION: No acute findings. Laboratory Results WBC 14.02 10^3/uL (3.29-11.43) H 11/14/22 11:30 RBC 5.44 10^6/uL (3.85-5.65) 11/14/22 11:30 Hgb 15.80 g/dL (11.27-16.99) 11/14/22 11:30 Hct 47.8 % (36-47) H 11/14/22 11:30 MCV 87.9 fl (85-98) 11/14/22 11:30 MCH 29.0 pg (27-33) 11/14/22 11:30 MCHC 33.1 g/dL (30-55) 11/14/22 11:30 RDW 12.7 % (12.1-15.1) 11/14/22 11:30 Plt Count 575 10^3/cmm (157-399) H 11/14/22 11:30 MPV 9.2 fL (7.4-10.4) 11/14/22 11:30 Neut % (Auto) 82.0 % 11/14/22 11:30 Lymph % (Auto) 8.1 % 11/14/22 11:30 [place] % (Auto) 7.0 % 11/14/22 11:30 Eos % (Auto) 1.1 % 11/14/22 11:30 Baso % (Auto) 0.4 % 11/14/22 11:30 Neut # (Auto) 11.49 10^3/uL (1.8-7.7) H 11/14/22 11:30 Lymph # (Auto) 1.1 10^3/uL (0.8-4.8) 11/14/22 11:30 [place] # (Auto) 1.0 10^3/uL (0.2-0.9) H 11/14/22 11:30 Eos # (Auto) 0.2 10^3/uL (0.0-0.8) 11/14/22 11:30 Baso # (Auto) 0.1 10^3/uL (0.0-0.1) 11/14/22 11:30 Nucleated RBC % (auto) 0 % 11/14/22 11:30 Nucleated RBCs # 0.0 /100WBC 11/14/22 11:30 Sodium 137 mmol/L (136-145) 11/14/22 11:30 Potassium 4.8 mmol/L (3.5-5.1) 11/14/22 11:30 Chloride 94 mmol/L (98-107) L 11/14/22 11:30 Carbon Dioxide 25 mmol/L (22-29) 11/14/22 11:30 Anion Gap 22.8 (5-19) H 11/14/22 11:30 BUN 16 mg/dL (8-23) 11/14/22 11:30 Creatinine 1.0 mg/dL (0.5-0.9) H 11/14/22 11:30 GFR Calculation Not Reportable 11/14/22 11:30 Glucose 137 mg/dL (65-115) H 11/14/22 11:30 Calculated Osmolality 287 mOsm/kg (285-295) 11/14/22 11:30 Calcium 10.5 mg/dL (8.5-10.5) 11/14/22 11:30 Magnesium 1.9 mg/dL (1.7-2.3) 11/14/22 11:30 Total Bilirubin 0.8 mg/dL (0.15-1.2) 11/14/22 11:30 AST 61 U/L (0-32) H 11/14/22 11:30 ALT 66 U/L (0-33) H 11/14/22 11:30 Alkaline Phosphatase 137 U/L (35-105) H 11/14/22 11:30 NT-Pro-B Natriuret Pep 1962 pg/mL (0-450) H 11/14/22 11:30 Total Protein 7.5 g/dL (6.6-8.7) 11/14/22 11:30 Albumin 4.4 g/dL (3.5-5.2) 11/14/22 11:30 Globulin 3.1 g/dL (1.3-4.6) 11/14/22 11:30 Digoxin 0.7 ng/mL (0.6-1.2) 11/14/22 11:30 EKG Data EKG 1: I personally reviewed and interpreted this EKG as follows: EKG interpretation date: 11/14/22 EKG interpretation time: 11:17 Prior EKG tracings: available for review Interpretation: EKG showed ventricular rate of 100 bpm, QRS duration 85, QTc of 408, atrial fibrillation with RVR, Q waves in V1 and V2 Discharge Plan Discharge Patient Disposition: Admitted As Inpatient Clinical Impression: Atrial fibrillation with rapid ventricular response, C. difficile diarrhea, Generalized muscle weakness, Pneumonia Condition: Stable Prescriptions: No Action Anoro Ellipta 62.5-25 mcg/actuation blister with device 1 inh inhalation Q24H levothyroxine 88 mcg tablet 88 mcg PO QAM digoxin 125 mcg (0.125 mg) tablet 125 mcg PO QAM Eliquis 5 mg tablet 5 mg PO BID gabapentin 600 mg tablet 600 mg PO TID loratadine 10 mg tablet 10 mg PO DAILY PRN (Reason: Allergy Symptoms) Myrbetriq 50 mg tablet extended release 24 hr 50 mg PO QAM ondansetron 8 mg tablet,disintegrating 8 mg PO Q8H PRN (Reason: nausea and vomiting) Qty: 21 0RF trazodone 50 mg Tablet 25 - 50 mg PO BEDTIME pravastatin 20 mg Tablet 20 mg PO BEDTIME duloxetine [Cymbalta] 60 mg Capsule,Delayed Release(Dr/Ec) 60 mg PO QAM cholecalciferol (vitamin D3) 1,250 mcg (50,000 unit) capsule 50,000 unit PO Q7D Rx Instructions: (ON SUNDAYS) hydrocodone-acetaminophen 10-325 mg tablet 1 tab PO TID PRN (Reason: Pain) Thermotabs 287-180-15 mg Tablet 1 tab PO QAM fluticasone propionate [Flonase Allergy Relief] 50 mcg/actuation [place],Suspension 1 - 2 spray INTRANASAL DAILY PRN (Reason: Nasal Congestion) nitroglycerin 0.4 mg tablet, sublingual 0.4 mg SUBLINGUAL Q5M PRN (Reason: chest pain) Qty: 30 0RF Rx Instructions: do not exceed 3 doses per episode potassium chloride 20 mEq Tablet Extended Release 20 meq PO 5XD amlodipine 10 mg Tablet 10 mg PO QAM montelukast 10 mg Tablet 10 mg PO QAM tizanidine 2 mg Capsule 2 mg PO BID PRN (Reason: Spasms) triamcinolone acetonide 0.1 % ointment 1 applic topical TID PRN (Reason: Rash) ondansetron 4 mg tablet,disintegrating 4 mg PO Q8H PRN (Reason: nausea and vomiting) Qty: 15 0RF donepezil 10 mg tablet 10 mg PO QAM alendronate 70 mg tablet 70 mg PO Q7D Rx Instructions: ON THURSDAY lisinopril 10 mg Tablet 10 mg PO BID furosemide 20 mg tablet 20 mg PO QAM albuterol sulfate 90 mcg/actuation HFA aerosol inhaler 2 puff INHALATION QID PRN (Reason: Shortness Of Breath) Prolia 60 mg/mL syringe See Rx Instructions .ROUTE .COMPLEX Rx Instructions: INJECT CONTENTS OF ONE PEN UNDER SKIN EVERY SIX MONTHS metoprolol tartrate 25 mg Tablet 25 mg PO QAM 30 Days Qty: 30 0RF metoprolol tartrate 25 mg tablet 12.5 mg PO QPM 30 Days Qty: 15 1RF vancomycin 125 mg capsule 125 mg PO Q6H 7 Days Qty: 28 0RF levofloxacin 750 mg tablet 750 mg PO DAILY 5 Days Qty: 5 0RF Referrals: Alison Ramos MD [Primary Care Provider] - Coding Level of Care Code ED Hospitality Recruiter for [facility]
[2022-11-14] MEDS: dilTIAZem 100 MG in sodium chloride 0.9% (add-van) 100 ML IV (13:13)
--- NOTE | 2022-11-14 14:47 | PM.HP ---
Providers/Chief Complaint Primary Care Provider: Alison Ramos MD Chief Complaint: sob History of Present Illness Arielle Vences is a 81 year old female who presented to the ER with complaints of weakness.? Patient is very hard of hearing, her is present to assist with the history. He reports that patient was recently discharged from the hospital after being treated for pneumonia. During her hospitalization, she was noted to be positive for C. difficile and was started on vancomycin. Patient was unable to take all the antibiotics as it was making her sick. This morning, states that patient became very short of breath, threw up her medications, and began to complain of some chest pain. He called the ambulance at that time to pick her up. In the ER, patient was noted to be short of breath, tachypneic with breathing rate of 26 breaths/min patient is on 2 L of oxygen per nasal cannula and keeping her O2 sat 90%.? Her heart rate was in the 120s to 130s range. She was given a dose of Cardizem and this did bring her heart rate down to around 120. She was then initiated on a Cardizem drip. EKG showed atrial fibrillation with RVR.? states that she was not able to take all of her antibiotics as were prescribed due to it making her sick. He says she has not been eating as well. Patient denies any nausea or abdominal pain today. She is on Eliquis, metoprolol, and digoxin for her atrial fibrillation. She is uncertain as to who her copy and print associate is, but her says it is someone in [place]. Review of Systems General: Reports: 10 or more systems reviewed and unremarkable except in HPI and below Const: Denies: fever(s) or chills Card: Reports: chest pain, palpitations and irregular heart rhythm Resp: Reports: dyspnea GI: Reports: nausea, vomiting and diarrhea : Denies: flank pain Medications/Allergies Home Medications Medication Instructions Recorded Confirmed Last Taken Type apixaban 5 mg tablet (Eliquis) 5 mg PO BID 04/06/19 11/14/22 11/08/22 History digoxin 125 mcg (0.125 mg) tablet 125 mcg PO QAM 04/06/19 11/14/22 11/08/22 History gabapentin 600 mg tablet 600 mg PO TID 04/06/19 11/14/22 11/08/22 08:30 History levothyroxine 88 mcg tablet 88 mcg PO QAM 04/06/19 11/14/22 11/08/22 History loratadine 10 mg tablet 10 mg PO DAILY PRN Allergy Symptoms 04/06/19 11/14/22 01/13/22 History mirabegron 50 mg tablet,extended 50 mg PO QAM 04/06/19 11/14/22 11/08/22 History release 24 hr (Myrbetriq) cholecalciferol (vitamin D3) 1,250 50,000 unit PO Q7D 05/11/19 11/14/22 11/02/22 History mcg (50,000 unit) capsule duloxetine 60 mg capsule,delayed 60 mg PO QAM 05/11/19 11/14/22 11/08/22 History release (Cymbalta) pravastatin 20 mg tablet 20 mg PO BEDTIME 05/11/19 11/14/22 11/07/22 History trazodone 50 mg tablet 25 - 50 mg PO BEDTIME 05/11/19 11/14/22 02/15/21 History fluticasone propionate 50 1 - 2 spray intranasal DAILY PRN 09/09/19 11/14/22 02/17/20 History mcg/actuation nasal Nasal Congestion spray,suspension (Flonase Allergy Relief) nitroglycerin 0.4 mg sublingual 0.4 mg sublingual Q5M PRN chest 09/09/19 11/14/22 12/04/20 Rx tablet pain #30 tabs potassium chloride 20 mEq 20 meq PO 5XD 02/18/20 11/14/22 11/08/22 08:30 History tablet,extended release ONLY 1 DOSE TODAY hydrocodone 10 mg-acetaminophen 1 tab PO TID PRN Pain 12/05/20 11/14/22 11/08/22 History 325 mg tablet sodium chloride-potassium chloride 1 tab PO QAM 02/16/21 11/14/22 11/08/22 History 287 mg-180 mg-15 mg tablet (Thermotabs) umeclidinium 62.5 mcg-vilanterol 1 inh inhalation Q24H 04/05/21 11/14/22 01/13/22 History 25 mcg/actuation powdr for inhalation (Anoro Ellipta) amlodipine 10 mg tablet 10 mg PO QAM 01/14/22 11/14/22 11/08/22 History montelukast 10 mg tablet 10 mg PO QAM 01/14/22 11/14/22 11/08/22 History tizanidine 2 mg capsule 2 mg PO BID PRN Spasms 01/14/22 11/14/22 Unknown History triamcinolone acetonide 0.1 % 1 applic topical TID PRN Rash 01/14/22 11/14/22 Unknown History topical ointment ondansetron 8 mg disintegrating 8 mg PO Q8H PRN nausea and 01/15/22 11/14/22 Unknown Rx tablet vomiting #21 tabs ondansetron 4 mg disintegrating 4 mg PO Q8H PRN nausea and 04/20/22 11/14/22 Unknown Rx tablet vomiting #15 tabs albuterol sulfate 90 mcg/actuation 2 puff inhalation QID PRN 11/08/22 11/14/22 Unknown History aerosol inhaler Shortness Of Breath alendronate 70 mg tablet 70 mg PO Q7D 11/08/22 11/14/22 11/02/22 History denosumab 60 mg/mL subcutaneous See Rx Instructions .Route .COMPLEX 11/08/22 11/14/22 Unknown History syringe (Prolia) donepezil 10 mg tablet 10 mg PO QAM 11/08/22 11/14/22 11/08/22 History furosemide 20 mg tablet 20 mg PO QAM 11/08/22 11/14/22 11/08/22 History lisinopril 10 mg tablet 10 mg PO BID 11/08/22 11/14/22 11/08/22 History levofloxacin 750 mg tablet 750 mg PO DAILY 5 days #5 tabs 11/12/22 11/14/22 Unknown Rx metoprolol tartrate 25 mg tablet 12.5 mg PO QPM 30 days #15 tabs 11/12/22 11/14/22 Unknown Rx metoprolol tartrate 25 mg tablet 25 mg PO QAM 30 days #30 tabs 11/12/22 11/14/22 Unknown Rx vancomycin 125 mg capsule 125 mg PO Q6H 7 days #28 caps 11/12/22 11/14/22 Unknown Rx Allergies Allergy/AdvReac Type Severity Reaction Status Date / Time No Known Allergies Allergy Verified 11/14/22 11:49 PFSH Acute PFSH: Medical History (Updated 11/14/22 @ 14:56 by Josh Figueredo DO) Abdominal hernia Age related osteoporosis Anal fissure Arthritis Atrial fibrillation with RVR Chronic back pain Chronic systolic (congestive) heart failure COPD (chronic obstructive pulmonary disease) COVID DDD (degenerative disc disease) Dementia Diverticulitis DJD (degenerative joint disease) Dyspnea on exertion Essential hypertension Gastroenteritis History of amputation of toe History of colon polyps Hx of fracture of ankle Hx of fracture of tibia Hypothyroidism Insomnia Lymphedema Lymphedema of both lower extremities Mixed hyperlipidemia Mixed incontinence Peripheral edema Pulmonary nodule Restless legs Sliding hiatal hernia Venous stasis dermatitis Surgical History History of bladder surgery History of colonoscopy years ago History of hysterectomy Hx of blepharoplasty Family History Sister Stroke CAD (coronary artery disease) DC @ 75 Hypertension Brother Cancer Father Cancer Social History Smoking and tobacco status: never smoked Second hand smoke exposure: No Smoking risk assessment/counseling performed?: No Alcohol intake: never Desire information about alcohol rehabilitation?: No Counseling given: No Substance/Drug Use: never Desire information about substance/drug rehabilitation?: No Counseling given: No Adopted: No Caregiver/support person: No Lives independently: Yes Household members: spouse Housing: House Marital status: service: No Current occupational status: retired Do you think of yourself as: Straight/Heterosexual Current gender identity: Female Vitals/I&O/Wt Last Vital Signs Pulse 105 H 11/14/22 14:44 Resp 20 H 11/14/22 14:44 BP 102/79 11/14/22 14:44 Pulse Ox 96 11/14/22 14:44 O2 Del Method Nasal Cannula 11/14/22 12:43 O2 Flow Rate 2 11/14/22 12:43 11/13/22 11/14/22 11/14/22 22:59 06:59 14:59 Intake Total 6.25 / 6.25 Balance 6.25 / 6.25 Weight last 48 hrs Weight 150 lb Physical Exam Narrative: General: Cooperative patient in no apparent distress. Well developed. HEENT: Normocephalic, Atraumatic. External ears normal. Nasal passages patent without drainage. MMM. Heart: Rapid heart rate with a irregular rhythm. Resp: LCTA. No respiratory distress, no use of accessory muscles. Abd: Soft, non-tender. Non-distended. Bowel sounds normal. Extremities: No edema. Skin: No rash or lesions on exposed areas. Data 11/14/22 11:30 11/14/22 11:30 A&P Assessment and plan (1) Atrial fibrillation with rapid ventricular response: (2) C. difficile diarrhea: (3) Pneumonia: Qualifiers: Pneumonia type: due to unspecified organism Laterality: bilateral Lung location: lower lobe of lung Qualified Code(s): J18.9 - Pneumonia, unspecified organism (4) Chest pain: Qualifiers: Chest pain type: chest pain due to myocardial ischemia Ischemic chest pain type: stable angina pectoris Qualified Code(s): I20.8 - Other forms of angina pectoris (5) COPD (chronic obstructive pulmonary disease): Qualifiers: COPD type: COPD with acute lower respiratory infection Qualified Code(s): J44.0 - Chronic obstructive pulmonary disease with (acute) lower respiratory infection (6) CHF (congestive heart failure): Qualifiers: Heart failure type: diastolic Heart failure chronicity: chronic Qualified Code(s): I50.32 - Chronic diastolic (congestive) heart failure (7) Nausea: (8) Acid reflux: Qualifiers: Esophagitis presence: without esophagitis Qualified Code(s): K21.9 - Gastro-esophageal reflux disease without esophagitis (9) Mixed hyperlipidemia: (10) Essential hypertension: (11) Dementia: Qualifiers: Dementia type: Alzheimer's Dementia severity: moderate Plan 81-year-old female admitted for A-fib with RVR, community-acquired pneumonia, C. difficile infection, and chest pain. We will admit to cardiac stepdown. EKG was performed in the ER and demonstrates atrial fibrillation with rapid ventricular rate. Rate was into the 130s at one point. Currently at 105. We will continue Cardizem drip for now. We will plan to titrate to oral medication tomorrow. Goal for heart rate is less than 100. We will continue home digoxin, metoprolol. No ST elevation noted on EKG. symptoms likely related to atrial fib. WBC elevated to 14.02, down from 21, down from 17 during recent discharge hospital discharge. Platelets are elevated to 575, which is likely from infection. Liver enzymes are slightly elevated. Will hold statin until she is stabilized. BNP at 1962. Continue Eliquis for VTE prophylaxis. Zofran for nausea. We will continue with oral vancomycin for C. difficile. Add probiotic. RAAT, O2 protocol. Had recent stress test earlier this year that demonstrated ejection fraction of 87%. Consider echocardiogram once heart rate is stabilized. Blood pressure is currently stable. We will continue her home blood pressure medications. We will restart her on IV Levaquin for her previous pneumonia. She has completed majority of the course, however does still have some shortness of breath and rales on examination. Continue donepezil for dementia. Protonix for GI prophylaxis. Repeat a.m. labs. Recheck thyroid. Code Status: Full IVF: D51/2NS @ 100. DVT PPx: Eliquis GI PPx: Protonix ABx: Oral vancomycin, levofloxacin Diet: Cardiac Discharge plan: Home with spouse when appropriate. Attestations Medical Necessity Statement*: Patient will need greater than 2 midnight stay for treatment of A-fib with RVR, pneumonia, C. difficile infection, IV antibiotics, and cultures. Coding Level of Care Code Acute Code for Chg Fwd Moderate MDM includes number and complexity of problems actively addressed during encounter, amount and/or complexity of data reviewed/ordered and described risk of complication, morbidity or mortality of management as documented Diagnoses Atrial fibrillation with rapid ventricular response I48.91 C. difficile diarrhea A04.72 Pneumonia J18.9 Pneumonia type: due to unspecified organism Laterality: bilateral Lung location: lower lobe of lung Chest pain I20.8 Chest pain type: chest pain due to myocardial ischemia Ischemic chest pain type: stable angina pectoris COPD (chronic obstructive pulmonary disease) J44.0 COPD type: COPD with acute lower respiratory infection CHF (congestive heart failure) I50.32 Heart failure type: diastolic Heart failure chronicity: chronic Nausea R11.0 Acid reflux K21.9 Esophagitis presence: without esophagitis Mixed hyperlipidemia E78.2 Essential hypertension I10 Dementia F03.90 Dementia type: Alzheimer's Dementia severity: moderate
[2022-11-14] MEDS: pantoprazole 40 mg SDV IVP (16:18)
[2022-11-14] MEDS: levofloxacin-dextrose 5 % 500 MG/100 ML PREMIX 100 MG IV (16:18)
[2022-11-14] MEDS: dextrose 5%-sod chloride 0.45% 1,000 ML 100 ML IV (16:19)
[2022-11-14] MEDS: metoprolol tartrate 25 mg Tablet PO (18:12)
[2022-11-14] MEDS: lisinopril 10 mg Tablet PO (18:13)
[2022-11-14] MEDS: apixaban 5 mg Tablet PO (18:13)
--- NOTE | 2022-11-14 20:31 | XRR_ITS ---
PROCEDURE INFORMATION: Exam: XR Chest Exam date and time: 11/14/2022 8:48 PM Age: 81 years old Clinical indication: Condition or disease; Other: Picc; Additional info: Picc placement TECHNIQUE: Imaging protocol: Radiologic exam of the chest. Views: 1 view. COMPARISON: CR XR chest 1V portable [id number] 11/14/2022 11:39 AM FINDINGS: Tubes, catheters and devices: Right-sided PICC line with distal tip overlying right atrium. Lungs: No consolidative pulmonary infiltrates are noted. Pleural spaces: No pleural effusion. No pneumothorax. Heart/Mediastinum: Mild cardiomegaly is noted. Vasculature: The thoracic aorta is atherosclerotic. Bones/joints: Unremarkable. XR/XR chest 1V portable [id number] IMPRESSION: 1. Right-sided PICC line with distal tip overlying right atrium. 2. Mild cardiomegaly is noted. 3. No acute abnormality demonstrated.
[2022-11-14] MEDS: gabapentin 300 mg Capsule 600 MG PO (21:00)
[2022-11-14] MEDS: HYDROcodone-acetaminophen 10-325 mg Tablet 1 TAB PO (21:00)
--- NOTE | 2022-11-14 21:23 | XRR_ITS ---
PROCEDURE INFORMATION: Exam: XR Chest Exam date and time: 11/14/2022 9:43 PM Age: 81 years old Clinical indication: Device placement; Patient HX: Check S/P retraction of picc line; Additional info: Picc placement TECHNIQUE: Imaging protocol: Radiologic exam of the chest. Views: 1 view. COMPARISON: CR (CHEST, ) 11/14/2022 8:48 PM FINDINGS: Tubes, catheters and devices: Right-sided PICC line with distal tip overlying right atrium. Lungs: Mild increased density in the right upper lobe. The lungs are otherwise unremarkable. Pleural spaces: No pleural effusion. No pneumothorax. Heart/Mediastinum: No cardiomegaly. Vasculature: The thoracic aorta is atherosclerotic. Bones/joints: Unremarkable. XR/XR chest 1V portable [id number] IMPRESSION: 1. Right-sided PICC line with distal tip overlying right atrium. 2. Mild increased density in the right upper lobe. This is new when compared to 11/14/2022 at 8:49 p.m..
--- NOTE | 2022-11-14 21:33 | PC.NURSE ---
PICC Insertion Consulted by house charge for PICC line for poor venous access. Upon arrival to room, discussed procedure with patient and her spouse, provided written and verbal education, and obtained verbal consent from the patient. She stated she was unable to sign because she couldn't see well, so her signed written consent. Assessed RUE with US and determined R Basilic vein best target for cannulation due to 4mm size and lack of evidence of thrombus or stenosis. Accessed vein x1 stick. Advanced device without resistance. Positive blood return and flushed easily in all lumens. Obtained chest xray for tip location confirmation. Device secured. EBL <10ml. Patient tolerated well. Handed off to primary nurse. ___ Per [facility], PICC tip in R atrium. Pulled PICC back to 2.5cm exposed. Plan to obtain 2nd x-ray to confirm PICC tip location post-intervention.
[2022-11-14] MEDS: ondansetron 2 mg/ML SDV 2 mL 4 MG IVP (22:24)
[2022-11-15] VITALS (47 sets, daily range): BP systolic 88–140; BP diastolic 52–87; PULSE 53–85; RESP 11–22; TEMP 36.4–37.1; O2SAT 89–97
[2022-11-15] MEDS: hyDROXYzine 25 mg Capsule PO ×2 (02:37→22:43)
[2022-11-15 04:36] LABS: Basophils % 0.1 %; Eosinophils # 0.2 10^3/uL (0.0-0.8); Eosinophils % 1.5 %; Hematocrit 40.5 % (36-47); Lymphocytes # 1.5 10^3/uL (0.8-4.8); Lymphocytes % 10.7 %; Mean Corpuscular HGB Conc 32.1 g/dL (30-55); Mean Corpuscular Volume 90.4 fl (85-98); Monocytes # 1.1 10^3/uL (0.2-0.9); Monocytes % 8.1 %; Neutrophils # 10.99 10^3/uL (1.8-7.7); Neutrophils % 78.7 %; Nucleated Red Blood Cells % 0 %; Platelet Count 473 10^3/cmm (157-399); Red Blood Count 4.48 10^6/uL (3.85-5.65); Red Cell Distribution Width 13.1 % (12.1-15.1); White Blood Count 13.97 10^3/uL (3.29-11.43)
[2022-11-15] MEDS: duloxetine 60 mg Capsule PO (05:21)
[2022-11-15] MEDS: donepezil 5 MG Tablet 10 MG PO (05:21)
[2022-11-15] MEDS: levothyroxine 88 mcg Tablet PO (05:21)
[2022-11-15] MEDS: HYDROcodone-acetaminophen 10-325 mg Tablet 1 TAB PO ×2 (05:21→13:00)
[2022-11-15 05:25] LABS: Alanine Aminotransferase 38 U/L (0-33); Albumin Level 3.4 g/dL (3.5-5.2); Alkaline Phosphatase 97 U/L (35-105); Aspartate Amino Transferase 22 U/L (0-32); Blood Urea Nitrogen 16 mg/dL (8-23); Calcium 9.2 mg/dL (8.5-10.5); Carbon Dioxide 32 mmol/L (22-29); Chloride 98 mmol/L (98-107); Globulin 2.7 g/dL (1.3-4.6); Glucose 103 mg/dL (65-115); Magnesium 2.1 mg/dL (1.7-2.3); Osmolality Calculated 283 mOsm/kg (285-295); Phosphorus 3.5 mg/dL (2.5-4.5); Sodium 136 mmol/L (136-145); Thyroid Stimulating Hormone 2.58 uIU/mL (0.27-4.20); Total Bilirubin 0.5 mg/dL (0.15-1.2); Total Protein 6.1 g/dL (6.6-8.7)
[2022-11-15 05:26] LABS: Procalcitonin 0.05 ng/mL (0-0.5)
[2022-11-15 05:38] LABS: C Reactive Protein 7.2 mg/L (0.0-4.9)
[2022-11-15] MEDS: lactobacillus 1 Tablet 1 TAB PO (08:35)
[2022-11-15] MEDS: lisinopril 10 mg Tablet PO ×2 (08:35→17:14)
[2022-11-15] MEDS: apixaban 5 mg Tablet PO ×2 (08:35→17:14)
[2022-11-15] MEDS: gabapentin 300 mg Capsule 600 MG PO ×3 (08:36→21:04)
--- NOTE | 2022-11-15 09:10 | P.PN_ITS ---
Subjective Subjective: Reports feeling better this morning than yesterday. Has had some mild abdominal pain overnight, currently denies. Is hungry, has not had any other nausea or vomiting. Vitals/I&O/Wt Last Vital Signs Temp 98.7 F 11/15/22 08:30 Pulse 61 11/15/22 08:30 Resp 16 11/15/22 08:30 BP 129/71 11/15/22 08:30 Pulse Ox 93 11/15/22 08:30 O2 Del Method Room Air 11/15/22 08:30 O2 Flow Rate 2 11/14/22 12:43 11/14/22 11/15/22 11/15/22 22:59 06:59 14:59 Intake Total 160.25 / 171.667 120 / 120 Output Total 550 / 550 Balance 160.25 / 171.667 -550 / -378.333 120 / 120 Weight last 48 hrs Weight 150 lb Physical Exam Narrative: General: Cooperative patient in no apparent distress. Well developed. HEENT: Normocephalic, Atraumatic. External ears normal. Nasal passages patent without drainage. MMM. Heart: RRR. Resp: LCTA. No respiratory distress, no use of accessory muscles. Abd: Soft, non-tender. Non-distended. Extremities: No edema. Skin: No rash or lesions on exposed areas. Urinary Catheter Management: Camilo: Cath Placed During This Visit: yes Reason for Continuing Indwelling Catheter: Accurate Measurement of Urinary Output in Critically Ill Patients Urinary Catheter Date of Insertion: 11/14/22 Urinary Catheter Time of Insertion: 21:56 Data 11/15/22 04:23 11/15/22 04:23 Micro: Microbiology 11/14/22 15:25 Blood Culture - Preliminary Blood SPECIMEN COLLECTED 11/14/22 15:19 Blood Culture - Preliminary Blood SPECIMEN COLLECTED A&P Assessment and plan (1) Atrial fibrillation with rapid ventricular response: (2) C. difficile diarrhea: (3) Pneumonia: Qualifiers: Laterality: bilateral Lung location: lower lobe of lung Pneumonia type: due to unspecified organism Qualified Code(s): J18.9 - Pneumonia, unspecified organism (4) Chest pain: Qualifiers: Chest pain type: chest pain due to myocardial ischemia Ischemic chest pain type: stable angina pectoris Qualified Code(s): I20.8 - Other forms of angina pectoris (5) COPD (chronic obstructive pulmonary disease): Qualifiers: COPD type: COPD with acute lower respiratory infection Qualified Code(s): J44.0 - Chronic obstructive pulmonary disease with (acute) lower respiratory infection (6) CHF (congestive heart failure): Qualifiers: Heart failure chronicity: chronic Heart failure type: diastolic Qualified Code(s): I50.32 - Chronic diastolic (congestive) heart failure (7) Nausea: (8) Acid reflux: Qualifiers: Esophagitis presence: without esophagitis Qualified Code(s): K21.9 - Gastro-esophageal reflux disease without esophagitis (9) Mixed hyperlipidemia: (10) Essential hypertension: (11) Dementia: Qualifiers: Dementia type: Alzheimer's Dementia severity: moderate Plan 81-year-old female admitted for A-fib with RVR, community-acquired pneumonia, C. difficile infection, and chest pain. Continue close ICU monitoring. PICC line was placed yesterday due to difficulties obtaining IV access. Heart rate is currently well controlled. Will titrate off of diltiazem today, and restart home medications. Blood pressure is stable. Liver enzymes are improved overnight. Continue Eliquis for VTE prophylaxis. Zofran for nausea. Continue vancomycin for C-diff infection, Levofloxacin for PNA, probiotic. Continue RAAT, O2 protocol. Blood pressure is currently stable. We will continue her home blood pressure medications. Continue donepezil for dementia. Protonix for GI prophylaxis. Repeat a.m. labs. Code Status: Full IVF: D51/2NS @ 75. DVT PPx: Eliquis GI PPx: Protonix ABx: Oral vancomycin, levofloxacin Diet: Cardiac Discharge plan: Home with spouse when appropriate. Attestations Medical Necessity Statement*: Patient will need greater than 2 midnight stay for treatment of A-fib with RVR, pneumonia, C. difficile infection, IV antibiotics, and cultures. Coding Level of Care Code Acute Code for Chg Fwd Moderate MDM includes number and complexity of problems actively addressed during encounter, amount and/or complexity of data reviewed/ordered and described risk of complication, morbidity or mortality of management as document ed Diagnoses Atrial fibrillation with rapid ventricular response I48.91 C. difficile diarrhea A04.72 Pneumonia J18.9 Laterality: bilateral Lung location: lower lobe of lung Pneumonia type: due to unspecified organism Chest pain I20.8 Chest pain type: chest pain due to myocardial ischemia Ischemic chest pain type: stable angina pectoris COPD (chronic obstructive pulmonary disease) J44.0 COPD type: COPD with acute lower respiratory infection CHF (congestive heart failure) I50.32 Heart failure chronicity: chronic Heart failure type: diastolic Nausea R11.0 Acid reflux K21.9 Esophagitis presence: without esophagitis Mixed hyperlipidemia E78.2 Essential hypertension I10 Dementia F03.90 Dementia type: Alzheimer's Dementia severity: moderate
--- NOTE | 2022-11-15 15:10 | PC.NURSE ---
Transfer Note Patient transferred to [facility] from ICU via bed. Handoff report given to KOBY Guerra. Upon transfer patient is alert/oriented x4, no wounds or skin issues noted at this time. Patient oriented to environment and equipment. Covering service notified. Orders reviewed and will continue to monitor. Family notified.
[2022-11-15] MEDS: pantoprazole 40 mg SDV IVP (15:13)
[2022-11-15] MEDS: levofloxacin-dextrose 5 % 500 MG/100 ML PREMIX 100 MG IV (17:14)
[2022-11-15] MEDS: metoprolol tartrate 25 mg Tablet PO (17:14)
[2022-11-15 20:51] LABS: Glucose Point of Care 107 mg/dL (70-110)
--- NOTE | 2022-11-15 22:33 | PC.NURSE ---
Patient requesting something for sleep. Telephoned Dr Jernigan. Received onetime order for Vistaril 25mg PO now. RBVO
[2022-11-16] VITALS (39 sets, daily range): BP systolic 106–133; BP diastolic 59–82; PULSE 53–79; RESP 11–23; TEMP 36.4–36.8; O2SAT 80–98
[2022-11-16 04:08] LABS: Basophils # 0.1 10^3/uL (0.0-0.1); Basophils % 0.6 %; Eosinophils # 0.4 10^3/uL (0.0-0.8); Eosinophils % 3.6 %; Hematocrit 39.8 % (36-47); Lymphocytes # 2.1 10^3/uL (0.8-4.8); Lymphocytes % 17.9 %; Mean Corpuscular HGB Conc 30.9 g/dL (30-55); Mean Corpuscular Hemoglobin 29.1 pg (27-33); Mean Corpuscular Volume 94.1 fl (85-98); Monocytes % 8.3 %; Neutrophils # 7.91 10^3/uL (1.8-7.7); Neutrophils % 68.2 %; Nucleated Red Blood Cells % 0 %; Platelet Count 423 10^3/cmm (157-399); Red Blood Count 4.23 10^6/uL (3.85-5.65); Red Cell Distribution Width 13.3 % (12.1-15.1)
[2022-11-16 04:23] LABS: Alanine Aminotransferase 24 U/L (0-33); Alkaline Phosphatase 86 U/L (35-105); Anion Gap 11.2 (5-19); Aspartate Amino Transferase 19 U/L (0-32); Blood Urea Nitrogen 18 mg/dL (8-23); Calcium 8.9 mg/dL (8.5-10.5); Carbon Dioxide 27 mmol/L (22-29); Chloride 104 mmol/L (98-107); Globulin 2.3 g/dL (1.3-4.6); Glucose 91 mg/dL (65-115); Osmolality Calculated 287 mOsm/kg (285-295); Potassium 4.2 mmol/L (3.5-5.1); Sodium 138 mmol/L (136-145); Total Bilirubin 0.3 mg/dL (0.15-1.2); Total Protein 5.3 g/dL (6.6-8.7)
[2022-11-16] MEDS: amlodipine 10 mg Tablet PO (05:07)
[2022-11-16] MEDS: duloxetine 60 mg Capsule PO (05:07)
[2022-11-16] MEDS: metoprolol tartrate 25 mg Tablet PO ×2 (05:08→17:11)
[2022-11-16] MEDS: levothyroxine 88 mcg Tablet PO (05:08)
[2022-11-16] MEDS: donepezil 5 MG Tablet 10 MG PO (05:08)
[2022-11-16] MEDS: gabapentin 300 mg Capsule 600 MG PO ×3 (09:42→21:06)
[2022-11-16] MEDS: apixaban 5 mg Tablet PO ×2 (09:42→17:11)
[2022-11-16] MEDS: lisinopril 10 mg Tablet PO ×2 (09:42→17:11)
--- NOTE | 2022-11-16 10:24 | PM.PN ---
Subjective Subjective: Reports mild, off-and-on abdominal pain. Continues to have some diarrhea. States that she has been eating well. Denies other concerns at this time. Vitals/I&O/Wt Last Vital Signs Temp 97.7 F 11/16/22 07:34 Pulse 65 11/16/22 07:34 Resp 15 11/16/22 07:34 BP 133/82 11/16/22 07:34 Pulse Ox 94 11/16/22 07:34 O2 Del Method Room Air 11/16/22 07:34 O2 Flow Rate 2 11/14/22 12:43 11/15/22 11/16/22 11/16/22 22:59 06:59 14:59 Intake Total 1340 / 1700 480 / 2180 480 / 480 Output Total 650 / 650 300 / 300 Balance 1340 / 1700 -170 / 1530 180 / 180 Weight last 48 hrs Weight 150 lb Physical Exam Narrative: General: Cooperative patient in no apparent distress. Well developed. HEENT: Normocephalic, Atraumatic. External ears normal. Nasal passages patent without drainage. MMM. Heart: RRR. Resp: LCTA. No respiratory distress, no use of accessory muscles. Abd: Soft, non-tender. Non-distended. Extremities: No edema. Skin: No rash or lesions on exposed areas. Urinary Catheter Management: Camilo: Cath Placed During This Visit: yes Reason for Continuing Indwelling Catheter: Acute Urinary Retention or Obstruction Urinary Catheter Date of Insertion: 11/14/22 Urinary Catheter Time of Insertion: 21:56 Data 11/16/22 03:37 11/16/22 03:37 Micro: Microbiology 11/14/22 15:25 Blood Culture - Preliminary Blood NEGATIVE TO DATE 11/14/22 15:19 Blood Culture - Preliminary Blood NEGATIVE TO DATE A&P Assessment and plan (1) Atrial fibrillation with rapid ventricular response: (2) C. difficile diarrhea: (3) Pneumonia: Qualifiers: Laterality: bilateral Lung location: lower lobe of lung Pneumonia type: due to unspecified organism Qualified Code(s): J18.9 - Pneumonia, unspecified organism (4) Chest pain: Qualifiers: Chest pain type: chest pain due to myocardial ischemia Ischemic chest pain type: stable angina pectoris Qualified Code(s): I20.8 - Other forms of angina pectoris (5) COPD (chronic obstructive pulmonary disease): Qualifiers: COPD type: COPD with acute lower respiratory infection Qualified Code(s): J44.0 - Chronic obstructive pulmonary disease with (acute) lower respiratory infection (6) CHF (congestive heart failure): Qualifiers: Heart failure chronicity: chronic Heart failure type: diastolic Qualified Code(s): I50.32 - Chronic diastolic (congestive) heart failure (7) Nausea: (8) Acid reflux: Qualifiers: Esophagitis presence: without esophagitis Qualified Code(s): K21.9 - Gastro-esophageal reflux disease without esophagitis (9) Mixed hyperlipidemia: (10) Essential hypertension: (11) Dementia: Qualifiers: Dementia type: Alzheimer's Dementia severity: moderate Plan 81-year-old female admitted for A-fib with RVR, community-acquired pneumonia, C. difficile infection, and chest pain. Continue inpatient monitoring. Heart rate is currently well controlled. Blood pressure is stable. Lung exam is improved. Liver enzymes are back to normal range. BCx negative to date. Zofran for nausea. She has not had any further episodes of vomiting. She is tolerating oral intake well. Will stop IVF's. Continue vancomycin for C-diff infection, Levofloxacin for PNA, probiotic. Continue RAAT, O2 protocol. Currently she is on room air, O2 at 94%. Continue home medications. Protonix for GI prophylaxis. Anticipate patient may discharge tomorrow morning. Would like to complete IV Abx today and tomorrow before discharge and will need 10 days of oral Vancomycin total. Code Status: Full IVF: DVT PPx: Eliquis GI PPx: Protonix ABx: Oral vancomycin, levofloxacin Diet: Cardiac Discharge plan: Home Attestations Medical Necessity Statement*: Continue treatment of pneumonia, C. difficile infection, IV antibiotics, and cultures. Coding Level of Care Code Acute Code for Chg Fwd Straight Forward/Low MDM includes number and complexity of problems actively addressed during encounter, amount and/or complexity of data reviewed/ordered and described risk of complication, morbidity or mortality of management as documented Diagnoses Atrial fibrillation with rapid ventricular response I48.91 C. difficile diarrhea A04.72 Pneumonia J18.9 Laterality: bilateral Lung location: lower lobe of lung Pneumonia type: due to unspecified organism Chest pain I20.8 Chest pain type: chest pain due to myocardial ischemia Ischemic chest pain type: stable angina pectoris COPD (chronic obstructive pulmonary disease) J44.0 COPD type: COPD with acute lower respiratory infection CHF (congestive heart failure) I50.32 Heart failure chronicity: chronic Heart failure type: diastolic Nausea R11.0 Acid reflux K21.9 Esophagitis presence: without esophagitis Mixed hyperlipidemia E78.2 Essential hypertension I10 Dementia F03.90 Dementia type: Alzheimer's Dementia severity: moderate
[2022-11-16] MEDS: lactobacillus 1 Tablet 1 TAB PO (10:57)
[2022-11-16] MEDS: levofloxacin-dextrose 5 % 500 MG/100 ML PREMIX 100 MG IV (15:38)
[2022-11-16] MEDS: pantoprazole 40 mg SDV IVP (15:38)
[2022-11-17] VITALS: BP 116/65; PULSE 87; RESP 23; TEMP 36.7; O2SAT 96
[2022-11-17 03:30] LABS: Basophils # 0.1 10^3/uL (0.0-0.1); Basophils % 0.4 %; Eosinophils # 0.4 10^3/uL (0.0-0.8); Eosinophils % 2.7 %; Hematocrit 39.7 % (36-47); Lymphocytes # 2.2 10^3/uL (0.8-4.8); Mean Corpuscular HGB Conc 30.7 g/dL (30-55); Mean Corpuscular Hemoglobin 28.8 pg (27-33); Mean Corpuscular Volume 93.6 fl (85-98); Mean Platelet Volume 8.9 fL (7.4-10.4); Monocytes % 8.1 %; Neutrophils # 9.14 10^3/uL (1.8-7.7); Neutrophils % 70.9 %; Nucleated Red Blood Cells % 0 %; Platelet Count 455 10^3/cmm (157-399); Red Blood Count 4.24 10^6/uL (3.85-5.65); Red Cell Distribution Width 13.2 % (12.1-15.1); White Blood Count 12.89 10^3/uL (3.29-11.43)
[2022-11-17 03:53] VITALS: BP 107/56; PULSE 65; RESP 14; TEMP 37.1; O2SAT 93
[2022-11-17 03:54] LABS: Alanine Aminotransferase 23 U/L (0-33); Albumin Level 3.1 g/dL (3.5-5.2); Alkaline Phosphatase 86 U/L (35-105); Anion Gap 12.1 (5-19); Aspartate Amino Transferase 16 U/L (0-32); Blood Urea Nitrogen 19 mg/dL (8-23); Calcium 9.1 mg/dL (8.5-10.5); Carbon Dioxide 26 mmol/L (22-29); Chloride 106 mmol/L (98-107); Globulin 2.3 g/dL (1.3-4.6); Glucose 95 mg/dL (65-115); Osmolality Calculated 292 mOsm/kg (285-295); Potassium 4.1 mmol/L (3.5-5.1); Sodium 140 mmol/L (136-145); Total Bilirubin 0.3 mg/dL (0.15-1.2); Total Protein 5.4 g/dL (6.6-8.7)
[2022-11-17 04:46] VITALS: PULSE 68
[2022-11-17 05:02] VITALS: PULSE 57
[2022-11-17] MEDS: levothyroxine 88 mcg Tablet PO (05:02)
[2022-11-17] MEDS: donepezil 5 MG Tablet 10 MG PO (05:02)
[2022-11-17] MEDS: duloxetine 60 mg Capsule PO (05:03)
[2022-11-17] MEDS: amlodipine 10 mg Tablet PO (05:04)
[2022-11-17 08:00] VITALS: BP 103/62; PULSE 66; RESP 15; O2SAT 95
--- NOTE | 2022-11-17 08:46 | PC.SOCIAL ---
IMM Update pg 2 of IMM updated and reviewed w/ patient and her . Copy provided and Copy dated, initialed and placed in chart.
[2022-11-17] MEDS: lactobacillus 1 Tablet 1 TAB PO (09:10)
[2022-11-17] MEDS: gabapentin 300 mg Capsule 600 MG PO (09:10)
[2022-11-17] MEDS: apixaban 5 mg Tablet PO (09:10)
[2022-11-17] MEDS: lisinopril 10 mg Tablet PO (09:10)
--- NOTE | 2022-11-17 09:16 | PM.DCS ---
Discharge Providers Date of Admission: 11/14/22 13:27 Date of Discharge: November 17, 2022 Attending Provider at Admission: Josh Figueredo DO Attending Provider at Discharge: Luisito Jernigan MD Primary Care Provider: Alison Ramos MD Diagnoses at Discharge Discharge Diagnosis (1) Atrial fibrillation with rapid ventricular response: Status: Acute (2) C. difficile diarrhea: Status: Acute (3) Pneumonia: Status: Acute Qualifiers: Laterality: bilateral Lung location: lower lobe of lung Pneumonia type: due to unspecified organism Qualified Code(s): J18.9 - Pneumonia, unspecified organism (4) Chest pain: Status: Acute Qualifiers: Chest pain type: chest pain due to myocardial ischemia Ischemic chest pain type: stable angina pectoris Qualified Code(s): I20.8 - Other forms of angina pectoris (5) COPD (chronic obstructive pulmonary disease): Status: Acute Qualifiers: COPD type: COPD with acute lower respiratory infection Qualified Code(s): J44.0 - Chronic obstructive pulmonary disease with (acute) lower respiratory infection (6) CHF (congestive heart failure): Status: Acute Qualifiers: Heart failure chronicity: chronic Heart failure type: diastolic Qualified Code(s): I50.32 - Chronic diastolic (congestive) heart failure (7) Nausea: Status: Acute (8) Acid reflux: Status: Acute Qualifiers: Esophagitis presence: without esophagitis Qualified Code(s): K21.9 - Gastro-esophageal reflux disease without esophagitis (9) Mixed hyperlipidemia: Status: Acute (10) Essential hypertension: Status: Chronic (11) Dementia: Status: Acute Qualifiers: Dementia type: Alzheimer's Dementia severity: moderate Reason for Visit Reason for Visit: sob Hospital Course Hospital Course Arielle Venkat Vences is a 81 year old female who presented to the ER with complaints of weakness.? Patient is very hard of hearing, her is present to assist with the history.? He reports that patient was recently discharged from the hospital after being treated for pneumonia.? During her hospitalization, she was noted to be positive for C. difficile and was started on vancomycin.? Patient was unable to take all the antibiotics as it was making her sick.? This morning, states that patient became very short of breath, threw up her medications, and began to complain of some chest pain.? He called the ambulance at that time to pick her up. In the ER, patient was noted to be short of breath, tachypneic with breathing rate of 26 breaths/min patient is on 2 L of oxygen per nasal cannula and keeping her O2 sat 90%.? Her heart rate was in the 120s to 130s range.? She was given a dose of Cardizem and this did bring her heart rate down to around 120.? She was then initiated on a Cardizem drip.? EKG showed atrial fibrillation with RVR.? states that she was not able to take all of her antibiotics as were prescribed due to it making her sick.? He says she has not been eating as well.? Patient denies any nausea or abdominal pain today.? She is on Eliquis, metoprolol, and digoxin for her atrial fibrillation.? 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 Patient was admitted to [facility] for A-fib with RVR, community-acquired pneumonia, C. difficile infection, required Cardizem drip, inpatient monitoring, I resumed her p.o. vancomycin, she was switched over to IV Levaquin, clinically monitored, overall clinically improved. She will discharge on 4 remaining days of p.o. vancomycin, complete 2 more days of p.o. Levaquin. In terms of her A-fib with RVR, she was managed with Cardizem drip, weaned off Cardizem, she did develop sinus bradycardia, so I will decrease her digoxin dose to 62.5 mcg once daily, with metoprolol 12.5 mg twice daily. Patient and was adamant about discharge home on 11/17/2022, I am worried about her risk of rehospitalization, risk of going back into A-fib with RVR, her heart rates are difficult to control as she alternates between A-fib and bradycardia. However she is adamant about going home, I have discharged her with the doses as below, since follow-up with cardiology in the next 1 to 3 days if she were to have any chest pain or palpitations to go to emergency room. Patient has dementia and is hard of hearing so I went over her discharge instructions in detail with at bedside. Physical Exam Const: COMMON NORMALS: no acute distress and patient oriented x3 Resp: COMMON NORMALS: normal respiratory effort, No retractions, No use of accessory muscles and clear to auscultation bilaterally AUSCULTATION: clear to auscultation bilaterally Cardio: COMMON NORMALS: regular rate, regular rhythm, S1 normal heart sound present and S2 normal heart sound present RATE: regular rate RHYTHM: regular rhythm HEART SOUNDS: S1 normal heart sound present and S2 normal heart sound present GI: COMMON NORMALS: Normal to inspection, nondistended, normoactive bowel sounds present and non-tender Extremity: COMMON NORMALS: no pedal edema Neuro: COMMON NORMALS: patient oriented x3 Psych: COMMON NORMALS: mental status grossly normal Urinary Catheter Management: Camilo: Cath Placed During This Visit: yes Reason for Continuing Indwelling Catheter: Accurate Measurement of Urinary Output in Critically Ill Patients Urinary Catheter Date of Insertion: 11/14/22 Urinary Catheter Time of Insertion: 21:56 Discharge Data Studies Completed and Pending Completed Studies During Hospitalization Category Date Time Status XR chest 1V portable [id number] Stat Exams 11/14/22 11:21 Completed XR chest 1V portable [id number] Stat Exams 11/14/22 20:31 Completed XR chest 1V portable [id number] Stat Exams 11/14/22 21:23 Completed Pending at discharge Category Date Time Status Blood Culture Routine Lab 11/14/22 15:25 Results Radiology Impressions Chest X-Ray 11/14/22 21:23 IMPRESSION: 1. Right-sided PICC line with distal tip overlying right atrium. 2. Mild increased density in the right upper lobe. This is new when compared to 11/14/2022 at 8:49 p.m.. Laboratory Results WBC 12.89 10^3/uL (3.29-11.43) H 11/17/22 03:00 RBC 4.24 10^6/uL (3.85-5.65) 11/17/22 03:00 Hgb 12.20 g/dL (11.27-16.99) 11/17/22 03:00 Hct 39.7 % (36-47) 11/17/22 03:00 MCV 93.6 fl (85-98) 11/17/22 03:00 MCH 28.8 pg (27-33) 11/17/22 03:00 MCHC 30.7 g/dL (30-55) 11/17/22 03:00 RDW 13.2 % (12.1-15.1) 11/17/22 03:00 Plt Count 455 10^3/cmm (157-399) H 11/17/22 03:00 MPV 8.9 fL (7.4-10.4) 11/17/22 03:00 Neut % (Auto) 70.9 % 11/17/22 03:00 Lymph % (Auto) 17.0 % 11/17/22 03:00 [place] % (Auto) 8.1 % 11/17/22 03:00 Eos % (Auto) 2.7 % 11/17/22 03:00 Baso % (Auto) 0.4 % 11/17/22 03:00 Neut # (Auto) 9.14 10^3/uL (1.8-7.7) H 11/17/22 03:00 Lymph # (Auto) 2.2 10^3/uL (0.8-4.8) 11/17/22 03:00 [place] # (Auto) 1.0 10^3/uL (0.2-0.9) H 11/17/22 03:00 Eos # (Auto) 0.4 10^3/uL (0.0-0.8) 11/17/22 03:00 Baso # (Auto) 0.1 10^3/uL (0.0-0.1) 11/17/22 03:00 Nucleated RBC % (auto) 0 % 11/17/22 03:00 Nucleated RBCs # 0.0 /100WBC 11/17/22 03:00 Sodium 140 mmol/L (136-145) 11/17/22 03:00 Potassium 4.1 mmol/L (3.5-5.1) 11/17/22 03:00 Chloride 106 mmol/L (98-107) 11/17/22 03:00 Carbon Dioxide 26 mmol/L (22-29) 11/17/22 03:00 Anion Gap 12.1 (5-19) 11/17/22 03:00 BUN 19 mg/dL (8-23) 11/17/22 03:00 Creatinine 1.0 mg/dL (0.5-0.9) H 11/17/22 03:00 GFR Calculation Not Reportable 11/17/22 03:00 Glucose 95 mg/dL (65-115) 11/17/22 03:00 POC Glucose 107 mg/dL (70-110) 11/15/22 20:42 Calculated Osmolality 292 mOsm/kg (285-295) 11/17/22 03:00 Calcium 9.1 mg/dL (8.5-10.5) 11/17/22 03:00 Phosphorus 3.5 mg/dL (2.5-4.5) 11/15/22 04:23 Magnesium 2.1 mg/dL (1.7-2.3) 11/15/22 04:23 Total Bilirubin 0.3 mg/dL (0.15-1.2) 11/17/22 03:00 AST 16 U/L (0-32) 11/17/22 03:00 ALT 23 U/L (0-33) 11/17/22 03:00 Alkaline Phosphatase 86 U/L (35-105) 11/17/22 03:00 C-Reactive Protein 7.2 mg/L (0.0-4.9) H 11/15/22 04:23 NT-Pro-B Natriuret Pep 1962 pg/mL (0-450) H 11/14/22 11:30 Total Protein 5.4 g/dL (6.6-8.7) L 11/17/22 03:00 Albumin 3.1 g/dL (3.5-5.2) L 11/17/22 03:00 Globulin 2.3 g/dL (1.3-4.6) 11/17/22 03:00 Procalcitonin 0.05 ng/mL (0-0.5) 11/15/22 04:23 TSH 2.58 uIU/mL (0.27-4.20) 11/15/22 04:23 Digoxin 0.7 ng/mL (0.6-1.2) 11/14/22 11:30 Vitals Last Vital Signs Temp 98.7 F 11/17/22 03:53 Pulse 66 11/17/22 08:00 Resp 15 11/17/22 08:00 BP 103/62 11/17/22 08:00 Pulse Ox 95 11/17/22 08:00 O2 Del Method Room Air 11/17/22 08:00 O2 Flow Rate 2 11/14/22 12:43 Discharge Plan Discharge Patient Disposition: Home Health Service Condition: Stable Prescriptions: Continued Anoro Ellipta 62.5-25 mcg/actuation blister with device 1 inh inhalation Q24H levothyroxine 88 mcg tablet 88 mcg PO QAM Eliquis 5 mg tablet 5 mg PO BID gabapentin 600 mg tablet 600 mg PO TID loratadine 10 mg tablet 10 mg PO DAILY PRN (Reason: Allergy Symptoms) Myrbetriq 50 mg tablet extended release 24 hr 50 mg PO QAM trazodone 50 mg Tablet 25 - 50 mg PO BEDTIME pravastatin 20 mg Tablet 20 mg PO BEDTIME duloxetine [Cymbalta] 60 mg Capsule,Delayed Release(Dr/Ec) 60 mg PO QAM cholecalciferol (vitamin D3) 1,250 mcg (50,000 unit) capsule 50,000 unit PO Q7D Rx Instructions: (ON SUNDAYS) hydrocodone-acetaminophen 10-325 mg tablet 1 tab PO TID PRN (Reason: Pain) Thermotabs 287-180-15 mg Tablet 1 tab PO QAM fluticasone propionate [Flonase Allergy Relief] 50 mcg/actuation [place],Suspension 1 - 2 spray INTRANASAL DAILY PRN (Reason: Nasal Congestion) nitroglycerin 0.4 mg tablet, sublingual 0.4 mg SUBLINGUAL Q5M PRN (Reason: chest pain) Qty: 30 0RF Rx Instructions: do not exceed 3 doses per episode montelukast 10 mg Tablet 10 mg PO QAM tizanidine 2 mg Capsule 2 mg PO BID PRN (Reason: Spasms) triamcinolone acetonide 0.1 % ointment 1 applic topical TID PRN (Reason: Rash) ondansetron 4 mg tablet,disintegrating 4 mg PO Q8H PRN (Reason: nausea and vomiting) Qty: 15 0RF donepezil 10 mg tablet 10 mg PO QAM alendronate 70 mg tablet 70 mg PO Q7D Rx Instructions: ON THURSDAY lisinopril 10 mg Tablet 10 mg PO BID furosemide 20 mg tablet 20 mg PO QAM albuterol sulfate 90 mcg/actuation HFA aerosol inhaler 2 puff INHALATION QID PRN (Reason: Shortness Of Breath) Prolia 60 mg/mL syringe See Rx Instructions .ROUTE .COMPLEX Rx Instructions: INJECT CONTENTS OF ONE PEN UNDER SKIN EVERY SIX MONTHS levofloxacin 750 mg tablet 750 mg PO DAILY 2 Days Qty: 2 0RF vancomycin 125 mg capsule 125 mg PO Q6H 5 Days Qty: 20 0RF Changed digoxin 125 mcg (0.125 mg) tablet 62.5 mcg PO QAM 30 Days Qty: 15 0RF potassium chloride 20 mEq Tablet Extended Release 20 meq PO DAILY 30 Days Qty: 0 0RF metoprolol tartrate 25 mg tablet 12.5 mg PO BID 30 Days Qty: 15 1RF Discontinued ondansetron 8 mg tablet,disintegrating 8 mg PO Q8H PRN (Reason: nausea and vomiting) Qty: 21 0RF amlodipine 10 mg Tablet 10 mg PO QAM metoprolol tartrate 25 mg Tablet 25 mg PO QAM 30 Days Qty: 30 0RF Discharge Orders: Discharge Order (Routine); Ordered 11/17/22 Ordered By: Luisito Jernigan Referrals: [facility] ([facility]) [Outside] Vidal Christopher MD [Physician] - 1-3 days ([facility] will call you with an appointment. If you don't hear from them by Friday 11/17, please call them at [phone].) Alison Ramos MD [Primary Care Provider] - 12/05/22 10:30 am Discharge Diet: Cardiac Discharge Activity: Resume usual activity Patient Instructions: Heart Failure (DC), CHF Stoplight, Opioid Safety Activity Restrictions/Additional Instructions: - Please hydrate well -Drink plenty electrolyte balanced fluids -See primary care provider on Thursday -See cardiology in 1 to 3 days -If you have any recurrent chest pain or chest palpitations or shortness of breath go to emergency room -Continue vancomycin p.o. for 4 remaining days -Continue Levaquin for pneumonia for 2 remaining days Discharge Attestations Time Spent in Discharge Care*: greater than 30 min Status at Discharge: Cognitive status at discharge: cognitively intact, Behavioral status at discharge: cooperative, Quality Metrics Clinical Quality Measures [ No reported AMI, CVA or VTE this stay] Coding Level of Care Code 53196 Total time (in minutes) for Discharge: 45 Diagnoses Atrial fibrillation with rapid ventricular response I48.91 C. difficile diarrhea A04.72 Pneumonia J18.9 Laterality: bilateral Lung location: lower lobe of lung Pneumonia type: due to unspecified organism Chest pain I20.8 Chest pain type: chest pain due to myocardial ischemia Ischemic chest pain type: stable angina pectoris COPD (chronic obstructive pulmonary disease) J44.0 COPD type: COPD with acute lower respiratory infection CHF (congestive heart failure) I50.32 Heart failure chronicity: chronic Heart failure type: diastolic Nausea R11.0 Acid reflux K21.9 Esophagitis presence: without esophagitis Mixed hyperlipidemia E78.2 Essential hypertension I10 Dementia F03.90 Dementia type: Alzheimer's Dementia severity: moderate
[2022-11-17 09:19] VITALS: BP 103/62; PULSE 66; RESP 15; TEMP 37.2; O2SAT 95
== END 2022-11-17 11:45 | disposition home health service (06) | DRG 308 ==
LOC: ER 13:27 → ICU 16:01 → CSU 11-15 15:33
PROVIDERS: Admitting Provider Family Medicine; Emergency Provider Emergency Medicine; PCP Internal Medicine; Visit Provider Family Medicine
DX: I48.91 Unspecified atrial fibrillation (principal); J18.9 Pneumonia, unspecified organism; A04.72 Enterocolitis due to Clostridium difficile, not specified as recurrent; J44.0 Chronic obstructive pulmonary disease with (acute) lower respiratory infection; I50.32 Chronic diastolic (congestive) heart failure; G30.9 Alzheimer's disease, unspecified; F02.B0 Dementia in other diseases classified elsewhere, moderate, without behavioral disturbance, psychotic disturbance, mood disturbance, and anxiety; H91.93 Unspecified hearing loss, bilateral; Z79.01 Long term (current) use of anticoagulants; Z79.891 Long term (current) use of opiate analgesic; Z79.51 Long term (current) use of inhaled steroids; I11.0 Hypertensive heart disease with heart failure; K21.9 Gastro-esophageal reflux disease without esophagitis; E78.2 Mixed hyperlipidemia; M81.0 Age-related osteoporosis without current pathological fracture; G89.29 Other chronic pain; M54.9 Dorsalgia, unspecified; Z86.16 Personal history of COVID-19; K44.9 Diaphragmatic hernia without obstruction or gangrene; G25.81 Restless legs syndrome; E03.9 Hypothyroidism, unspecified
CPT/HCPCS: 36415; 36416; 36573; 36592; 51702; 71045; 80053; 80162; 82962; 83735; 83880; 84100; 84145; 84443; 85025; 86140; 87040; 93005; 94640; 94664; 96365; 96375; 96376; 99285; C9113; G0378; J0692; J1956; J2405; J3490; J7512; J7799; Q0144

== ENCOUNTER 2023-07-08 13:18 | Emergency (ER) | payer MEDICARE, MEDICAID, SELFPAY ==
--- NOTE | 2023-07-08 13:20 | XR_ITS ---
WS: [id number] Exam: XR chest 1V portable [id number] Date/Time of Exam: 07/08/2023 1:49 PM Reason For Exam: dyspnea/cough Comparison 11/14/2022. The lungs are fully expanded and clear. Normal cardiomediastinal silhouette. No pleural effusions or pneumothorax. Bony structures are intact. IMPRESSION: 1. No acute cardiopulmonary finding.
--- NOTE | 2023-07-08 13:21 | ECG_ITS ---
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 Measurements Intervals [place] Rate: 82 P: 0 [place]: 0 QRS: -61 QRSD: 85 T: 58 QT: 357 QTc: 418 Interpretive Statements ATRIAL FIBRILLATION LEFT AXIS DEVIATION [QRS AXIS < -30] POSSIBLE ANTERIOR MYOCARDIAL INFARCTION , PROBABLY OLD [30 ms Q WAVE IN V3/V4, OR R < 0.2 mV IN V4] Compared to ECG 11/14/2022 11:17:46 Left-axis deviation now present Myocardial infarct finding still present Electronically Signed On 07-08-2023 15:27:36 CDT by Justin Ramachandran M.D. [id number]
[2023-07-08 13:23] VITALS: BP 142/82; PULSE 95; TEMP 36.9; O2SAT 98; BMI 25.0
--- NOTE | 2023-07-08 13:23 | ED_ITS ---
HPI - Chest Pain 2 General: Chief Complaint: Shortness of Breath/Dyspnea Stated Complaint: SOB, Chest Pain Time Seen by Provider: 07/08/23 13:20 Source: patient Mode of arrival: ambulatory History of Present Illness: 82-year-old female presents emergency ro om complaining of chest discomfort and shortness of breath has been present over the last several days. With any activity she has increasing shortness of breath she is not having orthopnea no hemoptysis no fever sweats or chills. MD complaint: chest pain Onset (ago): minute(s) Timing of current episode: episodic Prior episodes: Yes Relieving factors: nothing Exacerbating factors: nothing Associated symptoms: Deny abdominal pain, diaphoresis, dyspnea, fever(s), leg edema, nausea, palpitations, sense of impending doom, syncope or vomiting Treatment prior to arrival: none Review of Systems 2 Const: Denies: fever(s) or diaphoresis Card: Denies: palpitations or syncope Resp: Denies: dyspnea GI: Denies: abdominal pain, nausea or vomiting PFSH ED 2 PFSH: Medical History Abdominal hernia Age related osteoporosis Anal fissure Arthritis Atrial fibrillation with RVR Chronic back pain Chronic systolic (congestive) heart failure COPD (chronic obstructive pulmonary disease) COVID DDD (degenerative disc disease) Dementia Diverticulitis DJD (degenerative joint disease) Dyspnea on exertion Essential hypertension Gastroenteritis History of amputation of toe History of colon polyps Hx of fracture of ankle Hx of fracture of tibia Hypothyroidism Insomnia Lymphedema Lymphedema of both lower extremities Mixed hyperlipidemia Mixed incontinence Peripheral edema Pulmonary nodule Restless legs Sliding hiatal hernia Venous stasis dermatitis Surgical History History of bladder surgery History of colonoscopy years ago History of hysterectomy Hx of blepharoplasty Family History Sister Stroke CAD (coronary artery disease) [place] @ 75 Hypertension Brother Cancer Father Cancer Social History Smoking and tobacco/nicotine status: never used tobacco/nicotine Second hand smoke exposure: No Alcohol intake: never Substance/Drug Use: never Adopted: No Caregiver/support person: No Lives independently: Yes Household members: spouse Housing: House Marital status: service: No Current occupational status: retired Do you think of yourself as: Straight/Heterosexual Current gender identity: Female Course 2 Vital Signs: Vital signs: Vital Signs Temperature 98.5 F 07/08/23 13:23 Pulse Rate 91 07/08/23 14:29 Respiratory Rate 14 07/08/23 14:29 Blood Pressure 136/80 07/08/23 14:29 Pulse Oximetry 91 07/08/23 14:29 Oxygen Delivery Me thod Room Air 07/08/23 14:29 MDM - Chest Pain Medical Decision Making Initial troponin not elevated CBC unremarkable initial troponin 26 we recommended that she stay to complete the cardiac workup but she refuses. Patient encouraged to return to the emergency room if she has any further symptoms or wishes to be reevaluated or complete the evaluation Medical Records I reviewed the patient's medical records. Lab Data I reviewed the patient's lab results. 07/08/23 13:35 07/08/23 13:35 Laboratory Results WBC 8.97 10^3/uL (3.29-11.43) 07/08/23 13:35 RBC 4.26 10^6/uL (3.85-5.65) 07/08/23 13:35 Hgb 12.70 g/dL (11.27-16.99) 07/08/23 13:35 Hct 39.2 % (36-47) 07/08/23 13:35 MCV 92.0 fl (85-98) 07/08/23 13:35 MCH 29.8 pg (27-33) 07/08/23 13:35 MCHC 32.4 g/dL (30-55) 07/08/23 13:35 RDW 13.2 % (12.1-15.1) 07/08/23 13:35 Plt Count 222 10^3/cmm (157-399) 07/08/23 13:35 MPV 9.5 fL (7.4-10.4) 07/08/23 13:35 Neut % (Auto) 80.1 % 07/08/23 13:35 Lymph % (Auto) 8.2 % 07/08/23 13:35 [place] % (Auto) 10.1 % 07/08/23 13:35 Eos % (Auto) 0.7 % 07/08/23 13:35 Baso % (Auto) 0.3 % 07/08/23 13:35 Neut # (Auto) 7.18 10^3/uL (1.8-7.7) 07/08/23 13:35 Lymph # (Auto) 0.7 10^3/uL (0.8-4.8) L 07/08/23 13:35 [place] # (Auto) 0.9 10^3/uL (0.2-0.9) 07/08/23 13:35 Eos # (Auto) 0.1 10^3/uL (0.0-0.8) 07/08/23 13:35 Baso # (Auto) 0.0 10^3/uL (0.0-0.1) 07/08/23 13:35 Nucleated RBC % (auto) 0 % 07/08/23 13:35 Nucleated RBCs # 0.0 /100WBC 07/08/23 13:35 Sodium 136 mmol/L (136-145) 07/08/23 13:35 Potassium 4.4 mmol/L (3.5-5.1) 07/08/23 13:35 Chloride 100 mmol/L (98-107) 07/08/23 13:35 Carbon Dioxide 28 mmol/L (22-29) 07/08/23 13:35 Anion Gap 12.4 (5-19) 07/08/23 13:35 BUN 11 mg/dL (8-23) 07/08/23 13:35 Creatinine 0.9 mg/dL (0.5-0.9) 07/08/23 13:35 GFR Calculation Not Reportable 07/08/23 13:35 Glucose 114 mg/dL (65-115) 07/08/23 13:35 Calculated Osmolality 282 mOsm/kg (285-295) L 07/08/23 13:35 Calcium 9.6 mg/dL (8.5-10.5) 07/08/23 13:35 Total Bilirubin 0.5 mg/dL (0.15-1.2) 07/08/23 13:35 AST 19 U/L (0-32) 07/08/23 13:35 ALT 11 U/L (0-33) 07/08/23 13:35 Alkaline Phosphatase 58 U/L (35-105) 07/08/23 13:35 Troponin T Baseline 26 ng/L (0-10) H 07/08/23 13:35 Total Protein 6.9 g/dL (6.6-8.7) 07/08/23 13:35 Albumin 4.5 g/dL (3.5-5.2) 07/08/23 13:35 Globulin 2.4 g/dL (1.3-4.6) 07/08/23 13:35 Urine Color Straw (Yellow) 07/08/23 13:57 Urine Appearance Clear (CLEAR) 07/08/23 13:57 Urine pH 7 (5-7) 07/08/23 13:57 Ur Specific [place] 1.000 (1.005-1.030) L 07/08/23 13:57 Urine Protein Neg (Negative) 07/08/23 13:57 Urine Glucose (UA) Norm (Normal) 07/08/23 13:57 Urine Ketones Negative (Negative) 07/08/23 13:57 Urine Blood Neg (Negative) 07/08/23 13:57 Urine Nitrate Negative (Negative) 07/08/23 13:57 Urine Bilirubin Neg (Negative) 07/08/23 13:57 Urine Urobilinogen Neg mg/dL (Negative) 07/08/23 13:57 Ur Leukocyte Esterase Trace (Negative) H 07/08/23 13:57 Urine RBC Rare /hpf (0-2) 07/08/23 13:57 Urine WBC 0-4 /hpf (0-5) H 07/08/23 13:57 Ur Squamous Epith Cells 0-4 /hpf (0-5) H 07/08/23 13:57 Amorphous Sediment Not Reportable 07/08/23 13:57 Urine Bacteria 1+ /hpf (NONE) H 07/08/23 13:57 Urine Mucus Trace /hpf 07/08/23 13:57 All radiology interpretation(s) finalized by discharge Discharge Plan Discharge Patient Disposition: Home Clinical Impression: Chest pain, Dyspnea Prescriptions: No Action levothyroxine 88 mcg tablet 88 mcg PO QAM Eliquis 5 mg tablet 5 mg PO BID gabapentin 600 mg tablet 600 mg PO TID loratadine 10 mg tablet 10 mg PO DAILY PRN (Reason: Allergy Symptoms) Myrbetriq 50 mg tablet extended release 24 hr 50 mg PO QAM trazodone 50 mg Tablet 25 - 50 mg PO BEDTIME PRN (Reason: Sleep) duloxetine [Cymbalta] 60 mg Capsule,Delayed Release(Dr/Ec) 60 mg PO QAM cholecalciferol (vitamin D3) 1,250 mcg (50,000 unit) capsule 50,000 unit PO Q7D Rx Instructions: (ON SUNDAYS) hydrocodone-acetaminophen 10-325 mg tablet 1 tab PO TID PRN (Reason: Pain) Thermotabs 287-180-15 mg Tablet 1 tab PO QAM fluticasone propionate [Flonase Allergy Relief] 50 mcg/actuation [place],Suspension 1 - 2 spray INTRANASAL DAILY PRN (Reason: Nasal Congestion) nitroglycerin 0.4 mg tablet, sublingual 0.4 mg SUBLINGUAL Q5M PRN (Reason: chest pain) Qty: 30 0RF Rx Instructions: do not exceed 3 doses per episode tizanidine 2 mg tablet 2 mg PO BID pravastatin 40 mg tablet 40 mg PO DAILY acyclovir 400 mg tablet 400 mg PO TID amlodipine 10 mg tablet 10 mg PO DAILY levalbuterol tartrate 45 mcg/actuation HFA aerosol inhaler 2 puff INHALATION QID PRN (Reason: Shortness Of Breath) Jardiance 10 mg tablet 10 mg PO QAM digoxin 125 mcg (0.125 mg) tablet 125 mcg PO QAM potassium chloride 20 mEq tablet extended release 20 meq PO .FIVE TIMES A DAY montelukast 10 mg Tablet 10 mg PO QAM donepezil 10 mg tablet 10 mg PO QAM alendronate 70 mg tablet 70 mg PO Q7D Rx Instructions: ON THURSDAY lisinopril 10 mg Tablet 10 mg PO BID furosemide 20 mg tablet 20 mg PO QAM Prolia 60 mg/mL syringe See Rx Instructions .ROUTE .COMPLEX Rx Instructions: INJECT CONTENTS OF ONE PEN UNDER SKIN EVERY SIX MONTHS Discharge Orders: Discharge ED (Routine); Ordered 07/08/23 Ordered By: Trell Avery Referrals: Alison Ramos MD [Primary Care Provider] - Discharge Diet: Usual diet Discharge Activity: Limit activity as instructed Patient Instructions: Opioid Safety, Pain Management Activity Restrictions/Additional Instructions: Thank you for choosing [facility] for your healthcare needs today. Please realize this is an emergency room and that we are providing you with a medical screening exam and this may not be complete and all inclusive of all the testing and or work up that you may need to determine your ailment or severity of your illness. It is very important that you follow up as instructed or that you return to the Emergency Department should you have concerns or if your condition changes or worsens in any way. You were seen today for chest pain and shortness of breath. Your initial EKG did not show any acute ST changes your heart rhythm was atrial fibrillation. We recommended that you complete the full workup for chest pain but you would asked to leave early. We recommend that you complete the evaluation. You are welcome at any time to return to the emergency room for completion of the evaluation. Since you left early we were not able to complete the evaluation. Coding Level of Care Code ED Event Sales Manager for Juan F Mckinney
[2023-07-08 13:42] LABS: Basophils % 0.3 %; Eosinophils # 0.1 10^3/uL (0.0-0.8); Eosinophils % 0.7 %; Hematocrit 39.2 % (36-47); Lymphocytes # 0.7 10^3/uL (0.8-4.8); Lymphocytes % 8.2 %; Mean Corpuscular HGB Conc 32.4 g/dL (30-55); Mean Corpuscular Hemoglobin 29.8 pg (27-33); Mean Platelet Volume 9.5 fL (7.4-10.4); Monocytes # 0.9 10^3/uL (0.2-0.9); Monocytes % 10.1 %; Neutrophils # 7.18 10^3/uL (1.8-7.7); Neutrophils % 80.1 %; Nucleated Red Blood Cells % 0 %; Platelet Count 222 10^3/cmm (157-399); Red Blood Count 4.26 10^6/uL (3.85-5.65); Red Cell Distribution Width 13.2 % (12.1-15.1); White Blood Count 8.97 10^3/uL (3.29-11.43)
[2023-07-08 13:52] VITALS: BP 131/83; PULSE 90; RESP 18; O2SAT 93
[2023-07-08 14:03] LABS: Alanine Aminotransferase 11 U/L (0-33); Albumin Level 4.5 g/dL (3.5-5.2); Alkaline Phosphatase 58 U/L (35-105); Anion Gap 12.4 (5-19); Aspartate Amino Transferase 19 U/L (0-32); Blood Urea Nitrogen 11 mg/dL (8-23); Calcium 9.6 mg/dL (8.5-10.5); Carbon Dioxide 28 mmol/L (22-29); Chloride 100 mmol/L (98-107); Creatinine Clr Calc Pharmacy 50.1365; Globulin 2.4 g/dL (1.3-4.6); Glucose 114 mg/dL (65-115); Osmolality Calculated 282 mOsm/kg (285-295); Potassium 4.4 mmol/L (3.5-5.1); Sodium 136 mmol/L (136-145); Total Bilirubin 0.5 mg/dL (0.15-1.2); Total Protein 6.9 g/dL (6.6-8.7)
[2023-07-08 14:05] LABS: Troponin(5th) Baseline 26 ng/L (0-10)
[2023-07-08 14:12] LABS: Add Urine Microscopic? YES; Bilirubin Urine Neg (Negative); Blood Urine Neg (Negative); Glucose Urine UA Norm (Normal); Ketones Urine Negative (Negative); Leukocyte Esterase Urine Trace (Negative); Nitrate Urine Negative (Negative); Protein Urine Neg (Negative); Urine Appearance Clear (CLEAR); Urine Color Straw (Yellow); Urobilinogen Urine Neg (Negative); pH Urine 7 (5-7)
[2023-07-08 14:13] LABS: Add Urine Culture? No; Bacteria Urine 1+ /hpf; Mucus Urine TRACE /hpf; RBC Urine RARE /hpf (0-2); Squamous Epithelial Cell Urine 0-4 /hpf (0-5); WBC Urine 0-4 /hpf (0-5)
--- NOTE | 2023-07-08 14:14 | PC.PHAR ---
pts huan verified pts medications
[2023-07-08 14:29] VITALS: BP 136/80; PULSE 91; RESP 14; O2SAT 91
== END 2023-07-08 14:50 | disposition home or self-care (01) ==
PROVIDERS: Emergency Provider Family Medicine; PCP Internal Medicine
DX: R07.9 Chest pain, unspecified (principal); R06.00 Dyspnea, unspecified; Z79.01 Long term (current) use of anticoagulants; J44.9 Chronic obstructive pulmonary disease, unspecified; I11.0 Hypertensive heart disease with heart failure; I50.22 Chronic systolic (congestive) heart failure; F03.90 Unspecified dementia, unspecified severity, without behavioral disturbance, psychotic disturbance, mood disturbance, and anxiety; E78.2 Mixed hyperlipidemia
CPT/HCPCS: 71045; 80053; 81001; 84484; 85025; 93005; 99285

== ENCOUNTER 2023-07-18 18:03 | Emergency (ER) | payer MEDICARE, MEDICAID, SELFPAY ==
[2023-07-18 18:08] VITALS: BP 87/48; PULSE 69; RESP 18; TEMP 36.4; O2SAT 100
[2023-07-18 18:15] VITALS: BP 84/49; PULSE 65; RESP 19; O2SAT 100
--- NOTE | 2023-07-18 18:23 | XRR_ITS ---
PROCEDURE INFORMATION: Exam: XR Chest Exam date and time: 07/18/2023 6:27 PM Age: 82 years old Clinical indication: Other: AMS. Hypotension; Patient HX: EMS arrival for AMS. Patient hypotensive. History of copd and chf. TECHNIQUE: Imaging protocol: Radiologic exam of the chest. Views: 1 view. COMPARISON: CR XR chest 1V portable [id number] 07/08/2023 1:36 PM FINDINGS: Lungs: Interval development of mild ground-glass opacities in the right and left upper lobes. Stable mild hyperinflation of the lungs. Pleural spaces: No pleural effusion. No pneumothorax. Heart/Mediastinum: Stable moderate enlargement of the cardiac silhouette. Mediastinal contours are unremarkable. Vasculature: Stable vascular calcifications in the aorta. Bones/joints: Bones are diffusely osteopenic. Degenerative changes in the spine and shoulders. XR/XR chest 1V portable [id number] IMPRESSION: 1. Interval development of mild ground-glass opacities in the right and left upper lobes. Findings are suspicious for pneumonitis versus an atypical pneumonia. Recommend followup chest imaging to insure resolution of these findings. 2. Incidental/nonacute findings are listed in the report.
[2023-07-18 18:35] LABS: Basophils % 0.5 %; Eosinophils # 0.2 10^3/uL (0.0-0.8); Eosinophils % 2.6 %; Hematocrit 36.5 % (36-47); Lymphocytes # 0.7 10^3/uL (0.8-4.8); Lymphocytes % 8.6 %; Mean Corpuscular HGB Conc 31.5 g/dL (30-55); Mean Corpuscular Hemoglobin 29.9 pg (27-33); Mean Corpuscular Volume 94.8 fl (85-98); Mean Platelet Volume 9.6 fL (7.4-10.4); Monocytes # 0.8 10^3/uL (0.2-0.9); Monocytes % 10.2 %; Neutrophils # 6.23 10^3/uL (1.8-7.7); Neutrophils % 77.6 %; Nucleated Red Blood Cells % 0 %; Platelet Count 201 10^3/cmm (157-399); Red Blood Count 3.85 10^6/uL (3.85-5.65); Red Cell Distribution Width 13.2 % (12.1-15.1); White Blood Count 8.03 10^3/uL (3.29-11.43)
[2023-07-18] MEDS: sodium chloride 0.9% 1,000 ML 999 ML IV ×2 (18:35→19:34)
[2023-07-18 18:48] LABS: Alanine Aminotransferase 6 U/L (0-33); Albumin Level 3.8 g/dL (3.5-5.2); Alkaline Phosphatase 66 U/L (35-105); Anion Gap 12.7 (5-19); Aspartate Amino Transferase 14 U/L (0-32); Blood Urea Nitrogen 21 mg/dL (8-23); C Reactive Protein 62.8 mg/L (0.0-4.9); Calcium 8.3 mg/dL (8.5-10.5); Carbon Dioxide 26 mmol/L (22-29); Chloride 100 mmol/L (98-107); Globulin 2.4 g/dL (1.3-4.6); Glucose 115 mg/dL (65-115); Osmolality Calculated 282 mOsm/kg (285-295); Potassium 4.7 mmol/L (3.5-5.1); Sodium 134 mmol/L (136-145); Total Bilirubin 0.4 mg/dL (0.15-1.2); Total Protein 6.2 g/dL (6.6-8.7)
--- NOTE | 2023-07-18 18:49 | ECG_ITS ---
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 Measurements Intervals [place] Rate: 63 P: 0 ME: 0 QRS: -64 QRSD: 95 T: 71 QT: 396 QTc: 407 Interpretive Statements ATRIAL FIBRILLATION LEFT ANTERIOR FASCICULAR BLOCK [QRS AXIS <= -45, QR IN I, RS IN II] Compared to ECG 07/08/2023 13:31:05 Left anterior fascicular block now present Left-axis deviation no longer present Myocardial infarct finding no longer present Electronically Signed On 07-18-2023 19:41:40 CDT by Vidal Christopher M.D. [id number]
[2023-07-18 18:51] LABS: Lactic Sepsis W/Reflex 1.3 mmol/L (0.5-2.2)
[2023-07-18 19:18] VITALS: BP 98/60; PULSE 75; RESP 21; O2SAT 100
--- NOTE | 2023-07-18 19:21 | W.ED.ANXIETY ---
HPI - Anxiety General: Chief Complaint: Anxiety Stated Complaint: AMS Time Seen by Provider: 07/18/23 18:05 History of Present Illness: 82-year-old female with a history of chronic pain. She has been experimenting at home with marijuana edibles. She takes pain medication as well although her says he does not believe she has had any hydrocodone today. She presents with confusion, anxiety following taking an edible at home. This was approximately 50 mg of THC. She denies fever. She is nauseated but has not been vomiting. On EMS arrival, her blood pressure was low and remains so. Associated symptoms: Reports nausea; Deny chest pain, fever(s), palpitations or vomiting Review of Systems Const: Denies: fever(s) ENMT: Denies: throat pain Card: Denies: chest pain or palpitations Resp: Denies: dyspnea GI: Reports: nausea; Denies: abdominal pain or vomiting [facility] ED PFSH: Medical History Dyspnea on exertion Peripheral edema Lymphedema Venous stasis dermatitis Hx of fracture of ankle Arthritis DJD (degenerative joint disease) Abdominal hernia Sliding hiatal hernia Hypothyroidism Insomnia Gastroenteritis DDD (degenerative disc disease) Restless legs Pulmonary nodule Diverticulitis Hx of fracture of tibia Dementia Age related osteoporosis Mixed incontinence History of colon polyps COVID Atrial fibrillation with RVR COPD (chronic obstructive pulmonary disease) Anal fissure Chronic back pain Lymphedema of both lower extremities Mixed hyperlipidemia Chronic systolic (congestive) heart failure Essential hypertension Surgical History History of bladder surgery History of colonoscopy years ago History of hysterectomy Hx of blepharoplasty Family History Sister Stroke CAD (coronary artery disease) [place] @ 75 Hypertension Brother Cancer Father Cancer Social History Smoking and tobacco/nicotine status: never used tobacco/nicotine Second hand smoke exposure: No Alcohol intake: never Substance/Drug Use: never Adopted: No Caregiver/support person: No Lives independently: Yes Household members: spouse Housing: House Marital status: service: No Current occupational status: retired Do you think of yourself as: Straight/Heterosexual Current gender identity: Female Physical Exam Const: COMMON NORMALS: no acute distress EXAM LIMITATIONS: altered mental status GENERAL APPEARANCE: cooperative, ill appearing and frail appearing ORIENTATION/CONSCIOUSNESS: Yes confused HENMT: COMMON NORMALS: normocephalic, atraumatic and Normal external nose present HEAD & SCALP: normocephalic and atraumatic FACE & SINUS: normal facial exam and face symmetric NOSE: Normal external nose present Eye: COMMON NORMALS: Equal, round and reactive pupils present and EOMs intact bilaterally PUPIL: Yes Equal, round and reactive pupils present Neck/C-Spine: GENERAL: Yes trachea midline Chest: CHEST: Yes Symmetrical chest wall rise Resp: COMMON NORMALS: normal respiratory effort, No retractions, No use of accessory muscles and clear to auscultation bilaterally AUSCULTATION: clear to auscultation bilaterally Cardio: COMMON NORMALS: regular rate and regular rhythm RATE: regular rate RHYTHM: regular rhythm GI: COMMON NORMALS: Normal to inspection, nondistended, normoactive bowel sounds present Extremity: COMMON NORMALS: no pedal edema Neuro: ERIKA COMA SCALE: document GCS findings Pollock coma scale eye opening: Spontaneous Pollock coma scale verbal response: Orientated Erika coma scale motor response: Obey commands Pollock coma scale total score: 15 SENSORY EXAM: Yes extremities (intact) Psych: COMMON NORMALS: speech normal SPEECH: Yes normal speech Skin: COMMON NORMALS: no rashes or lesions noted GENERAL SKIN EXAM: no rashes or lesions noted Course Vital Signs: Vital signs: Vital Signs Temperature 97.6 F 07/18/23 18:08 Pulse Rate 70 07/18/23 20:41 Respiratory Rate 15 07/18/23 20:41 Blood Pressure 108/58 07/18/23 20:41 Pulse Oximetry 97 07/18/23 20:41 Oxygen Delivery Me thod Nasal Cannula 07/18/23 18:08 MDM - Anxiety Medical Decision Making Patient's mental status is improved after IV fluid here and time. Blood pressure is also improved. Currently 108/58. She is awake and talking. Creatinine is 1.4, which is roughly stable. Chest x-ray reveals groundglass opacities in the right and left upper lobes. Urinalysis shows urinary tract infection. Will treat as an outpatient since she is improved clinically. Lab Data 07/18/23 18:18 07/18/23 18:18 Radiology Impressions Chest X-Ray 07/18/23 18:23 IMPRESSION: 1. Interval development of mild ground-glass opacities in the right and left upper lobes. Findings are suspicious for pneumonitis versus an atypical pneumonia. Recommend followup chest imaging to insure resolution of these findings. 2. Incidental/nonacute findings are listed in the report. Laboratory Results WBC 8.03 10^3/uL (3.29-11.43) 07/18/23 18:18 RBC 3.85 10^6/uL (3.85-5.65) 07/18/23 18:18 Hgb 11.50 g/dL (11.27-16.99) 07/18/23 18:18 Hct 36.5 % (36-47) 07/18/23 18:18 MCV 94.8 fl (85-98) 07/18/23 18:18 MCH 29.9 pg (27-33) 07/18/23 18:18 MCHC 31.5 g/dL (30-55) 07/18/23 18:18 RDW 13.2 % (12.1-15.1) 07/18/23 18:18 Plt Count 201 10^3/cmm (157-399) 07/18/23 18:18 MPV 9.6 fL (7.4-10.4) 07/18/23 18:18 Neut % (Auto) 77.6 % 07/18/23 18:18 Lymph % (Auto) 8.6 % 07/18/23 18:18 [place] % (Auto) 10.2 % 07/18/23 18:18 Eos % (Auto) 2.6 % 07/18/23 18:18 Baso % (Auto) 0.5 % 07/18/23 18:18 Neut # (Auto) 6.23 10^3/uL (1.8-7.7) 07/18/23 18:18 Lymph # (Auto) 0.7 10^3/uL (0.8-4.8) L 07/18/23 18:18 [place] # (Auto) 0.8 10^3/uL (0.2-0.9) 07/18/23 18:18 Eos # (Auto) 0.2 10^3/uL (0.0-0.8) 07/18/23 18:18 Baso # (Auto) 0.0 10^3/uL (0.0-0.1) 07/18/23 18:18 Nucleated RBC % (auto) 0 % 07/18/23 18:18 Nucleated RBCs # 0.0 /100WBC 07/18/23 18:18 Sodium 134 mmol/L (136-145) L 07/18/23 18:18 Potassium 4.7 mmol/L (3.5-5.1) 07/18/23 18:18 Chloride 100 mmol/L (98-107) 07/18/23 18:18 Carbon Dioxide 26 mmol/L (22-29) 07/18/23 18:18 Anion Gap 12.7 (5-19) 07/18/23 18:18 BUN 21 mg/dL (8-23) 07/18/23 18:18 Creatinine 1.4 mg/dL (0.5-0.9) H 07/18/23 18:18 GFR Calculation Not Reportable 07/18/23 18:18 Glucose 115 mg/dL (65-115) 07/18/23 18:18 Calculated Osmolality 282 mOsm/kg (285-295) L 07/18/23 18:18 Lactic Acid 1.3 mmol/L (0.5-2.2) 07/18/23 18:18 Calcium 8.3 mg/dL (8.5-10.5) L 07/18/23 18:18 Total Bilirubin 0.4 mg/dL (0.15-1.2) 07/18/23 18:18 AST 14 U/L (0-32) 07/18/23 18:18 ALT 6 U/L (0-33) 07/18/23 18:18 Alkaline Phosphatase 66 U/L (35-105) 07/18/23 18:18 C-Reactive Protein 62.8 mg/L (0.0-4.9) H 07/18/23 18:18 Total Protein 6.2 g/dL (6.6-8.7) L 07/18/23 18:18 Albumin 3.8 g/dL (3.5-5.2) 07/18/23 18:18 Globulin 2.4 g/dL (1.3-4.6) 07/18/23 18:18 Urine Color Yellow (Yellow) 07/18/23 20:39 Urine Appearance Hazy (CLEAR) A 07/18/23 20:39 Urine pH 5 (5-7) 07/18/23 20:39 Ur Specific [place] 1.015 (1.005-1.030) 07/18/23 20:39 Urine Protein Neg (Negative) 07/18/23 20:39 Urine Glucose (UA) 4+ (Normal) H 07/18/23 20:39 Urine Ketones Negative (Negative) 07/18/23 20:39 Urine Blood Neg (Negative) 07/18/23 20:39 Urine Nitrate Negative (Negative) 07/18/23 20:39 Urine Bilirubin Neg (Negative) 07/18/23 20:39 Urine Urobilinogen Neg mg/dL (Negative) 07/18/23 20:39 Ur Leukocyte Esterase 2+ (Negative) H 07/18/23 20:39 Urine RBC 0-4 /hpf (0-2) H 07/18/23 20:39 Urine WBC 5-10 /hpf (0-5) H 07/18/23 20:39 Ur Squamous Epith Cells 5-10 /hpf (0-5) H 07/18/23 20:39 Amorphous Sediment Not Reportable 07/18/23 20:39 Urine Bacteria 1+ /hpf (NONE) H 07/18/23 20:39 Hyaline Casts 5-10 /lpf H 07/18/23 20:39 Coarse Granular Casts 0-4 /lpf H 07/18/23 20:39 Urine Mucus Trace /hpf 07/18/23 20:39 Urine Opiates Screen Negative ng/mL (Negative) 07/18/23 20:39 Ur Barbiturates Screen Negative ng/mL (Negative) 07/18/23 20:39 Ur Phencyclidine Scrn Negative ng/mL (Negative) 07/18/23 20:39 Ur Amphetamines Screen Negative ng/mL (Negative) 07/18/23 20:39 U Benzodiazepines Scrn Negative ng/mL (Negative) 07/18/23 20:39 Urine Cocaine Screen Negative ng/mL (Negative) 07/18/23 20:39 U Marijuana (THC) Screen Positive ng/mL (Negative) H 07/18/23 20:39 All radiology interpretation(s) finalized by discharge Discharge Plan Discharge Patient Disposition: Home Clinical Impression: UTI (urinary tract infection), Intoxication with cannabis, Pneumonitis Condition: Stable Prescriptions: New cefdinir 300 mg capsule 300 mg PO BID Qty: 14 0RF Zithromax 250 mg tablet See Rx Instructions .ROUTE .COMPLEX Qty: 6 0RF Rx Instructions: For 250 mg dose pack: take 500 mg today (day 1), then 250 mg for 4 days (days 2-5) No Action levothyroxine 88 mcg tablet 88 mcg PO QAM Eliquis 5 mg tablet 5 mg PO BID gabapentin 600 mg tablet 600 mg PO TID loratadine 10 mg tablet 10 mg PO DAILY PRN (Reason: Allergy Symptoms) Myrbetriq 50 mg tablet extended release 24 hr 50 mg PO QAM trazodone 50 mg Tablet 25 - 50 mg PO BEDTIME PRN (Reason: Sleep) duloxetine [Cymbalta] 60 mg Capsule,Delayed Release(Dr/Ec) 60 mg PO QAM cholecalciferol (vitamin D3) 1,250 mcg (50,000 unit) capsule 50,000 unit PO Q7D Rx Instructions: (ON SUNDAYS) hydrocodone-acetaminophen 10-325 mg tablet 1 tab PO TID PRN (Reason: Pain) Thermotabs 287-180-15 mg Tablet 1 tab PO QAM fluticasone propionate [Flonase Allergy Relief] 50 mcg/actuation [place],Suspension 1 - 2 spray INTRANASAL DAILY PRN (Reason: Nasal Congestion) nitroglycerin 0.4 mg tablet, sublingual 0.4 mg SUBLINGUAL Q5M PRN (Reason: chest pain) Qty: 30 0RF Rx Instructions: do not exceed 3 doses per episode tizanidine 2 mg tablet 2 mg PO BID pravastatin 40 mg tablet 40 mg PO DAILY acyclovir 400 mg tablet 400 mg PO TID amlodipine 10 mg tablet 10 mg PO DAILY levalbuterol tartrate 45 mcg/actuation HFA aerosol inhaler 2 puff INHALATION QID PRN (Reason: Shortness Of Breath) Jardiance 10 mg tablet 10 mg PO QAM digoxin 125 mcg (0.125 mg) tablet 125 mcg PO QAM potassium chloride 20 mEq tablet extended release 20 meq PO .FIVE TIMES A DAY montelukast 10 mg Tablet 10 mg PO QAM donepezil 10 mg tablet 10 mg PO QAM alendronate 70 mg tablet 70 mg PO Q7D Rx Instructions: ON THURSDAY lisinopril 10 mg Tablet 10 mg PO BID furosemide 20 mg tablet 20 mg PO QAM Prolia 60 mg/mL syringe See Rx Instructions .ROUTE .COMPLEX Rx Instructions: INJECT CONTENTS OF ONE PEN UNDER SKIN EVERY SIX MONTHS Discharge Orders: Discharge ED (Routine); Ordered 07/18/23 Ordered By: Louis Cooney Referrals: Alison Ramos MD [Primary Care Provider] - 1-3 days Patient Instructions: Pneumonitis (ED), Urinary Tract Infection in Older Adults (ED), Opioid Safety, Pain Management Activity Restrictions/Additional Instructions: Drink plenty of fluids. Antibiotics as directed. Return for worsening confusion, worsening pain, fever despite 2-3 doses of antibiotics, other concerning symptoms. See your doctor next week. Coding Level of Care Code ED Forensic Audit Expert for Juan F Mckinney
[2023-07-18 20:21] VITALS: BP 104/54; PULSE 77; RESP 18; O2SAT 97
[2023-07-18 20:41] VITALS: BP 108/58; PULSE 70; RESP 15; O2SAT 97
[2023-07-18 20:55] LABS: Amphetamines Screen Urine Negative (Negative); Barbiturates Screen Urine Negative (Negative); Benzodiazepines Screen Urine Negative (Negative); Cocaine Screen Urine Negative (Negative); Opiate Screen Urine Negative (Negative); PCP Screen Urine Negative (Negative); THC Screen Urine Positive (Negative)
[2023-07-18 21:01] LABS: Add Urine Microscopic? YES; Bacteria Urine 1+ /hpf; Bilirubin Urine Neg (Negative); Blood Urine Neg (Negative); Glucose Urine UA 4+ (Normal); Ketones Urine Negative (Negative); Leukocyte Esterase Urine 2+ (Negative); Nitrate Urine Negative (Negative); Protein Urine Neg (Negative); RBC Urine 0-4 /hpf (0-2); Specific Gravity, Urine 1.015 (1.005-1.030); Urine Appearance Hazy (CLEAR); Urine Color Yellow (Yellow); Urobilinogen Urine Neg (Negative); pH Urine 5 (5-7)
[2023-07-18 21:02] LABS: Coarse Granular Casts Urine 0-4 /lpf; Mucus Urine TRACE /hpf
[2023-07-18] MEDS: azithromycin 250 mg Tablet 500 MG PO (21:15)
[2023-07-18] MEDS: cefdinir 300 MG CAPSULE PO (21:16)
== END 2023-07-18 21:29 | disposition home or self-care (01) ==
PROVIDERS: Emergency Provider Emergency Medicine; PCP Internal Medicine
DX: N39.0 Urinary tract infection, site not specified (principal); F12.929 Cannabis use, unspecified with intoxication, unspecified; J98.4 Other disorders of lung; Z79.01 Long term (current) use of anticoagulants; F03.90 Unspecified dementia, unspecified severity, without behavioral disturbance, psychotic disturbance, mood disturbance, and anxiety; J44.9 Chronic obstructive pulmonary disease, unspecified; E78.2 Mixed hyperlipidemia; I11.0 Hypertensive heart disease with heart failure; I50.22 Chronic systolic (congestive) heart failure
CPT/HCPCS: 71045; 80053; 80306; 81001; 83605; 85025; 86140; 93005; 96360; 96361; 99285; J7030; Q0144

== ENCOUNTER 2023-08-16 12:00 | Emergency (ER) | payer MEDICARE, MEDICAID, SELFPAY ==
[2023-08-16] VITALS (9 sets, daily range): BP systolic 101–147; BP diastolic 74–96; PULSE 93–96; RESP 17–18; TEMP 36.7; O2SAT 91–95
--- NOTE | 2023-08-16 13:50 | CTR_ITS ---
PROCEDURE INFORMATION: Exam: CT Abdomen And Pelvis With Contrast Exam date and time: 08/16/2023 3:35 PM Age: 82 years old Clinical indication: Abdominal pain; Generalized; Prior surgery; Surgery date: 6+ months; Surgery type: Partial hysto; Additional info: Abd pain TECHNIQUE: Imaging protocol: Computed tomography of the abdomen and pelvis with contrast. Radiation optimization: All CT scans at this facility use at least one of these dose optimization techniques: automated exposure control; mA and/or kV adjustment per patient size (includes targeted exams where dose is matched to clinical indication); or iterative reconstruction. Contrast material: OMNI 350; Contrast volume: 100 ml; Contrast route: INTRAVENOUS (IV); COMPARISON: CT abdomen pelvis w con* [id number] 04/20/2022 2:38 PM RADIATION DOSE METRICS: Total DLP (mGy-cm): 376.25 FINDINGS: Lungs: Atelectatic changes in both lung bases. Liver: Normal. No mass. Gallbladder and bile ducts: Normal. No calcified stones. No ductal dilation. Pancreas: Normal. No ductal dilation. Spleen: Calcified granulomas in the spleen. Adrenal glands: Normal. No mass. Kidneys and ureters: Normal. No hydronephrosis. Stomach and bowel: Diverticulosis of the sigmoid colon. Appendix: No evidence of appendicitis. Intraperitoneal space: Unremarkable. No free air. No significant fluid collection. Vasculature: Vascular calcifications. Pelvic phleboliths. Lymph nodes: Unremarkable. No enlarged lymph nodes. Urinary bladder: Unremarkable as visualized. Reproductive: Post hysterectomy. Bones/joints: Mild degenerative disease of bilateral sacroiliac joints. Mild curvature of the lumbar spine convex to the left. Mild degenerative disease of the symphysis pubis and bilateral hip joints. Mild compression deformity of the T12 and L2 vertebral bodies. Multilevel moderate degenerative disease of the lumbar spine with disc space narrowing, anterior and posterior osteophytes, most pronounced at L2-L3. Soft tissues: Injection granulomas in bilateral buttocks. CT/CT abdomen pelvis w con* [id number] IMPRESSION: No acute intra-abdominal process.
--- NOTE | 2023-08-16 13:52 | W.ED.ABDPA2 ---
HPI - Abdominal Pain General: Chief Complaint: Abdominal Pain Stated Complaint: stomach cramps weak Time Seen by Provider: 08/16/23 13:44 Source: patient Mode of arrival: ambulatory Limitations: no limitations History of Present Illness: 82-year-old female who states that she has been having nausea vomiting along with abdominal cramps is normal last week states this morning she is having as well is a 5 out of 10 this morning states she is currently pain-free states she has not had an appetite and has not been eating much and had some fatigue as well she denies any fevers denies any dysuria. Associated Symptoms: Reports nausea and vomiting; Denies chills, diarrhea, dysuria and fever(s) Review of Systems Const: Denies: fever(s), chills, body aches or change in appetite ENMT: Denies: throat pain or dental pain Card: Denies: chest pain Resp: Denies: dyspnea GI: Reports: abdominal pain, nausea and vomiting; Denies: diarrhea : Denies: dysuria Musc: Denies: neck pain or back pain Skin/Breast: Denies: rash Neuro: Denies: headache(s) PFSH ED PFSH: Medical History Dyspnea on exertion Peripheral edema Lymphedema Venous stasis dermatitis Hx of fracture of ankle Arthritis DJD (degenerative joint disease) Abdominal hernia Sliding hiatal hernia Hypothyroidism Insomnia Gastroenteritis DDD (degenerative disc disease) Restless legs Pulmonary nodule Diverticulitis Hx of fracture of tibia Dementia Age related osteoporosis Mixed incontinence History of colon polyps COVID Atrial fibrillation with RVR COPD (chronic obstructive pulmonary disease) Anal fissure Chronic back pain Lymphedema of both lower extremities Mixed hyperlipidemia Chronic systolic (congestive) heart failure Essential hypertension Surgical History History of amputation of toe Hx of blepharoplasty History of bladder surgery History of colonoscopy years ago History of hysterectomy Family History Sister Stroke CAD (coronary artery disease) [place] @ 75 Hypertension Brother Cancer Father Cancer Social History Smoking and tobacco/nicotine status: never used tobacco/nicotine Second hand smoke exposure: No Alcohol intake: never Substance/Drug Use: never Adopted: No Caregiver/support person: No Lives independently: Yes Household members: spouse Housing: House Marital status: service: No Current occupational status: retired Do you think of yourself as: Straight/Heterosexual Current gender identity: Female Physical Exam Const: COMMON NORMALS: no acute distress, patient oriented x3 and healthy appearing HENMT: COMMON NORMALS: normocephalic and atraumatic HEAD & SCALP: normocephalic and atraumatic Eye: COMMON NORMALS: conjunctivae normal CONJUNCTIVA: Yes conjunctivae normal Neck/C-Spine: COMMON NORMALS: full ROM and supple Chest: COMMONS NORMALS: normal inspection of the chest and normal palpation of entire chest wall Resp: COMMON NORMALS: normal respiratory effort Cardio: COMMON NORMALS: regular rate, regular rhythm and No murmurs present (Cardio) RATE: regular rate RHYTHM: regular rhythm GI: COMMON NORMALS: Normal to inspection, nondistended, normoactive bowel sounds present, Soft to palpation, non-tender and no masses PALPATION: Yes Soft to palpation Extremity: COMMON NORMALS: normal to inspection and full ROM Neuro: COMMON NORMALS: patient oriented x3, moves all extremities and no focal motor deficits Psych: COMMON NORMALS: mental status grossly normal, Normal thought process present and cooperative THOUGHT PROCESS: Normal thought process present Skin: COMMON NORMALS: no rashes or lesions noted and no wounds GENERAL SKIN EXAM: no rashes or lesions noted Course Vital Signs: Vital signs: Vital Signs Temperature 98.0 F 08/16/23 12:33 Pulse Rate 93 08/16/23 12:33 Respiratory Rate 18 08/16/23 12:33 Blood Pressure 126/84 08/16/23 16:01 Pulse Oximetry 92 08/16/23 16:01 Oxygen Delivery Me thod Room Air 08/16/23 12:33 MDM - Abdominal Pain Medical Decision Making Patient presents with some generalized weakness abdominal pain she was found to have a UTI patient CT scan blood work here otherwise normal she feels improved here we will prescribe her Keflex and Zofran she is follow-up with PCP and return if worsening she understands agrees to plan Medical Records I reviewed the patient's medical records. Lab Data I reviewed the patient's lab results. 08/16/23 14:07 08/16/23 14:53 Labs/Radiology: Radiology Impressions Abdomen/Pelvis CT 08/16/23 13:50 IMPRESSION: No acute intra-abdominal process. Laboratory Results WBC 10.36 10^3/uL (3.29-11.43) 08/16/23 14:07 RBC 4.55 10^6/uL (3.85-5.65) 08/16/23 14:07 Hgb 13.40 g/dL (11.27-16.99) 08/16/23 14:07 Hct 41.7 % (36-47) 08/16/23 14:07 MCV 91.6 fl (85-98) 08/16/23 14:07 MCH 29.5 pg (27-33) 08/16/23 14:07 MCHC 32.1 g/dL (30-55) 08/16/23 14:07 RDW 12.7 % (12.1-15.1) 08/16/23 14:07 Plt Count 231 10^3/cmm (157-399) 08/16/23 14:07 MPV 10.0 fL (7.4-10.4) 08/16/23 14:07 Neut % (Auto) 79.4 % 08/16/23 14:07 Lymph % (Auto) 9.3 % 08/16/23 14:07 [place] % (Auto) 9.3 % 08/16/23 14:07 Eos % (Auto) 1.0 % 08/16/23 14:07 Baso % (Auto) 0.5 % 08/16/23 14:07 Neut # (Auto) 8.24 10^3/uL (1.8-7.7) H 08/16/23 14:07 Lymph # (Auto) 1.0 10^3/uL (0.8-4.8) 08/16/23 14:07 [place] # (Auto) 1.0 10^3/uL (0.2-0.9) H 08/16/23 14:07 Eos # (Auto) 0.1 10^3/uL (0.0-0.8) 08/16/23 14:07 Baso # (Auto) 0.1 10^3/uL (0.0-0.1) 08/16/23 14:07 Nucleated RBC % (auto) 0 % 08/16/23 14:07 Nucleated RBCs # 0.0 /100WBC 08/16/23 14:07 Sodium 134 mmol/L (136-145) L 08/16/23 14:53 Potassium 4.7 mmol/L (3.5-5.1) 08/16/23 14:53 Chloride 99 mmol/L (98-107) 08/16/23 14:53 Carbon Dioxide 20 mmol/L (22-29) L 08/16/23 14:53 Anion Gap 19.7 (5-19) H 08/16/23 14:53 BUN 17 mg/dL (8-23) 08/16/23 14:53 Creatinine 0.9 mg/dL (0.5-0.9) 08/16/23 14:53 GFR Calculation Not Reportable 08/16/23 14:53 Glucose 89 mg/dL (65-115) 08/16/23 14:53 Calculated Osmolality 279 mOsm/kg (285-295) L 08/16/23 14:53 Calcium 9.1 mg/dL (8.5-10.5) 08/16/23 14:53 Total Bilirubin 0.4 mg/dL (0.15-1.2) 08/16/23 14:53 AST 14 U/L (0-32) 08/16/23 14:53 ALT 7 U/L (0-33) 08/16/23 14:53 Alkaline Phosphatase 98 U/L (35-105) 08/16/23 14:53 Total Protein 7.6 g/dL (6.6-8.7) 08/16/23 14:53 Albumin 3.6 g/dL (3.5-5.2) 08/16/23 14:53 Globulin 4.0 g/dL (1.3-4.6) 08/16/23 14:53 Lipase 20 U/L (13-60) 08/16/23 14:53 Urine Color Yellow (Yellow) 08/16/23 15:31 Urine Appearance Slightly cloudy (CLEAR) 08/16/23 15:31 Urine pH 5 (5-7) 08/16/23 15:31 Ur Specific [place] 1.025 (1.005-1.030) 08/16/23 15:31 Urine Protein Neg (Negative) 08/16/23 15:31 Urine Glucose (UA) 4+ (Normal) H 08/16/23 15:31 Urine Ketones 2+ (Negative) H 08/16/23 15:31 Urine Blood 2+ (Negative) H 08/16/23 15:31 Urine Nitrate Negative (Negative) 08/16/23 15:31 Urine Bilirubin 1+ (Negative) H 08/16/23 15:31 Urine Urobilinogen Norm mg/dL (Negative) 08/16/23 15:31 Ur Leukocyte Esterase 2+ (Negative) H 08/16/23 15:31 Urine RBC 10-15 /hpf (0-2) H 08/16/23 15:31 Urine WBC 25-40 /hpf (0-5) H 08/16/23 15:31 Ur Squamous Epith Cells 5-10 /hpf (0-5) H 08/16/23 15:31 Amorphous Sediment Not Reportable 08/16/23 15:31 Urine Bacteria 1+ /hpf (NONE) H 08/16/23 15:31 All radiology interpretation(s) finalized by discharge Discharge Plan Discharge Patient Disposition: Home Clinical Impression: UTI (urinary tract infection) Condition: Stable Prescriptions: New cephalexin 500 mg capsule 500 mg PO TID 7 Days Qty: 21 0RF ondansetron 4 mg tablet,disintegrating 4 mg PO Q6H PRN (Reason: nausea and vomiting) Qty: 14 0RF No Action levothyroxine 88 mcg tablet 88 mcg PO QAM Eliquis 5 mg tablet 5 mg PO BID gabapentin 600 mg tablet 600 mg PO TID loratadine 10 mg tablet 10 mg PO DAILY PRN (Reason: Allergy Symptoms) Myrbetriq 50 mg tablet extended release 24 hr 50 mg PO QAM trazodone 50 mg Tablet 25 - 50 mg PO BEDTIME PRN (Reason: Sleep) duloxetine [Cymbalta] 60 mg Capsule,Delayed Release(Dr/Ec) 60 mg PO QAM cholecalciferol (vitamin D3) 1,250 mcg (50,000 unit) capsule 50,000 unit PO Q7D Rx Instructions: (ON SUNDAYS) hydrocodone-acetaminophen 10-325 mg tablet 1 tab PO TID PRN (Reason: Pain) Thermotabs 287-180-15 mg Tablet 1 tab PO QAM fluticasone propionate [Flonase Allergy Relief] 50 mcg/actuation [place],Suspension 1 - 2 spray INTRANASAL DAILY PRN (Reason: Nasal Congestion) nitroglycerin 0.4 mg tablet, sublingual 0.4 mg SUBLINGUAL Q5M PRN (Reason: chest pain) Qty: 30 0RF Rx Instructions: do not exceed 3 doses per episode tizanidine 2 mg tablet 2 mg PO BID pravastatin 40 mg tablet 40 mg PO DAILY acyclovir 400 mg tablet 400 mg PO TID amlodipine 10 mg tablet 10 mg PO DAILY levalbuterol tartrate 45 mcg/actuation HFA aerosol inhaler 2 puff INHALATION QID PRN (Reason: Shortness Of Breath) Jardiance 10 mg tablet 10 mg PO QAM digoxin 125 mcg (0.125 mg) tablet 125 mcg PO QAM potassium chloride 20 mEq tablet extended release 20 meq PO .FIVE TIMES A DAY montelukast 10 mg Tablet 10 mg PO QAM donepezil 10 mg tablet 10 mg PO QAM alendronate 70 mg tablet 70 mg PO Q7D Rx Instructions: ON THURSDAY lisinopril 10 mg Tablet 10 mg PO BID furosemide 20 mg tablet 20 mg PO QAM Prolia 60 mg/mL syringe See Rx Instructions .ROUTE .COMPLEX Rx Instructions: INJECT CONTENTS OF ONE PEN UNDER SKIN EVERY SIX MONTHS cefdinir 300 mg capsule 300 mg PO BID Qty: 14 0RF Zithromax 250 mg tablet See Rx Instructions .ROUTE .COMPLEX Qty: 6 0RF Rx Instructions: For 250 mg dose pack: take 500 mg today (day 1), then 250 mg for 4 days (days 2-5) Discharge Orders: Discharge ED (Routine); Ordered 08/16/23 Ordered By: Lina Richards Referrals: Alison Ramos MD [Primary Care Provider] - 1-3 days Discharge Diet: Advance as tolerated Discharge Activity: Resume usual activity Patient Instructions: Urinary Tract Infection in Women (ED) Coding Level of Care Code ED Residential Nurse for Juan F Mckinney
[2023-08-16] MEDS: ondansetron 2 mg/ML SDV 2 mL 4 MG IVP (14:06)
[2023-08-16] MEDS: sodium chlor 0.9% + KCl 20 mEq 20 MEQ/1,000 ML BAG 30 MEQ IV (14:07)
[2023-08-16 14:15] LABS: Basophils # 0.1 10^3/uL (0.0-0.1); Basophils % 0.5 %; Eosinophils # 0.1 10^3/uL (0.0-0.8); Hematocrit 41.7 % (36-47); Lymphocytes % 9.3 %; Mean Corpuscular HGB Conc 32.1 g/dL (30-55); Mean Corpuscular Hemoglobin 29.5 pg (27-33); Mean Corpuscular Volume 91.6 fl (85-98); Monocytes % 9.3 %; Neutrophils # 8.24 10^3/uL (1.8-7.7); Neutrophils % 79.4 %; Nucleated Red Blood Cells % 0 %; Platelet Count 231 10^3/cmm (157-399); Red Blood Count 4.55 10^6/uL (3.85-5.65); Red Cell Distribution Width 12.7 % (12.1-15.1); White Blood Count 10.36 10^3/uL (3.29-11.43)
[2023-08-16 15:13] LABS: Alanine Aminotransferase 7 U/L (0-33); Albumin Level 3.6 g/dL (3.5-5.2); Alkaline Phosphatase 98 U/L (35-105); Aspartate Amino Transferase 14 U/L (0-32); Blood Urea Nitrogen 17 mg/dL (8-23); Calcium 9.1 mg/dL (8.5-10.5); Carbon Dioxide 20 mmol/L (22-29); Chloride 99 mmol/L (98-107); Creatinine Clr Calc Pharmacy 48.0508; Glucose 89 mg/dL (65-115); Lipase 20 U/L (13-60); Osmolality Calculated 279 mOsm/kg (285-295); Sodium 134 mmol/L (136-145); Total Bilirubin 0.4 mg/dL (0.15-1.2); Total Protein 7.6 g/dL (6.6-8.7)
[2023-08-16 15:20] LABS: Anion Gap 19.7 (5-19); Potassium 4.7 mmol/L (3.5-5.1)
[2023-08-16] MEDS: iohexol 350 mg/mL 500 mL Btl (per mL) IV (15:37)
[2023-08-16 15:50] LABS: Glucose Urine UA 4+ (Normal); Ketones Urine 2+ (Negative); Protein Urine Neg (Negative); Specific Gravity, Urine 1.025 (1.005-1.030); Urine Appearance Slightly Cloudy (CLEAR); Urine Color Yellow (Yellow); pH Urine 5 (5-7)
[2023-08-16 15:51] LABS: Add Urine Culture? Yes; Add Urine Microscopic? YES; Bacteria Urine 1+ /hpf; Bilirubin Urine 1+ (Negative); Blood Urine 2+ (Negative); Leukocyte Esterase Urine 2+ (Negative); Nitrate Urine Negative (Negative); Urobilinogen Urine Norm (Negative); WBC Urine 25-40 /hpf (0-5)
[2023-08-16] MEDS: cefTRIAXone 1,000 MG in sodium chloride 0.9% (plus) 50 ML 100 MG IV (16:15)
[2023-08-16] MEDS: sodium chloride 0.9% 500 ML 999 ML IV (16:50)
== END 2023-08-16 17:40 | disposition home or self-care (01) ==
PROVIDERS: Emergency Provider Emergency Medicine; PCP Internal Medicine
DX: N39.0 Urinary tract infection, site not specified (principal); Z79.01 Long term (current) use of anticoagulants; F03.90 Unspecified dementia, unspecified severity, without behavioral disturbance, psychotic disturbance, mood disturbance, and anxiety; J44.9 Chronic obstructive pulmonary disease, unspecified; E78.2 Mixed hyperlipidemia; I11.0 Hypertensive heart disease with heart failure; I50.22 Chronic systolic (congestive) heart failure
CPT/HCPCS: 36415; 74177; 80053; 81001; 83690; 85025; 87077; 87086; 87186; 96365; 96375; 99285; J0696; J2405; J3480; J7040; Q9967

== ENCOUNTER → 2023-09-02 10:46 | Outpatient (BNVA) | payer MEDICARE, MEDICAID, SELFPAY | PROVIDERS: PCP Internal Medicine; Visit Provider Nurse Practitioner Family | DX: M25.522 Pain in left elbow (principal) | CPT/HCPCS: 73080 ==

== ENCOUNTER 2023-09-19 11:04 | Emergency (ER) | payer MEDICARE, MEDICAID, SELFPAY ==
[2023-09-19 11:11] VITALS: BP 136/85; PULSE 79; RESP 14; TEMP 36.8; O2SAT 98
--- NOTE | 2023-09-19 11:33 | ED_ITS ---
HPI - Wound/Laceration General: Chief Complaint: Wound/Laceration Stated Complaint: left arm lac, fall weeks ago Time Seen by Provider: 09/19/23 11:21 Source: patient Mode of arrival: ambulatory History of Present Illness: 82-year-old female she fell 1 week ago h as a skin tear to the lateral aspect of her left elbow. She has been excoriating the eschar and removed a good portion of it. She complaining of some discomfort where the eschar was removed she did see her primary care doctor started on oral antibiotics she has been applying [id number] topical antibiotic ointment to the wound no fever sweats or chills no swelling no drainage Extremity Location: Left: elbow Associated symptoms: Reports pain; Denies chills or fever(s) Review of Systems Const: Denies: fever(s) or chills PFSH ED PFSH: Medical History Dyspnea on exertion Peripheral edema Lymphedema Venous stasis dermatitis Hx of fracture of ankle Arthritis DJD (degenerative joint disease) Abdominal hernia Sliding hiatal hernia Hypothyroidism Insomnia Gastroenteritis DDD (degenerative disc disease) Restless legs Pulmonary nodule Diverticulitis Hx of fracture of tibia Dementia Age related osteoporosis Mixed incontinence History of colon polyps COVID Atrial fibrillation with RVR COPD (chronic obstructive pulmonary disease) Anal fissure Chronic back pain Lymphedema of both lower extremities Mixed hyperlipidemia Chronic systolic (congestive) heart failure Essential hypertension Surgical History History of amputation of toe Hx of blepharoplasty History of bladder surgery History of colonoscopy years ago History of hysterectomy Family History Sister Stroke CAD (coronary artery disease) [place] @ 75 Hypertension Brother Cancer Father Cancer Social History Smoking and tobacco/nicotine status: never used tobacco/nicotine Second hand smoke exposure: No Alcohol intake: never Substance/Drug Use: never Adopted: No Caregiver/support person: No Lives independently: Yes Household members: spouse Housing: House Marital status: service: No Current occupational status: retired Do you think of yourself as: Straight/Heterosexual Current gender identity: Female Physical Exam Narrative: EXAM NARRATIVE: Eschar on the lateral aspect of the left elbow overlying the lateral epicondyle. Centrally large portion of the eschar has been removed manually. There is no active bleeding no induration no drainage no sign of infection Course Vital Signs: Vital signs: Vital Signs Temperature 98.2 F 09/19/23 11:11 Pulse Rate 79 09/19/23 11:11 Respiratory Rate 14 09/19/23 11:11 Blood Pressure 136/85 09/19/23 11:11 Pulse Oximetry 98 09/19/23 11:11 Oxygen Delivery Me thod Room Air 09/19/23 11:11 MDM - Wound/Laceration Medical Decision Making Wound care instructions given apply topical antibiotic ointment once a day and keep wound covered follow-up with primary care. Patient reports her tetanus is up-to-date Medical Records I reviewed the patient's medical records. Lab Data I reviewed the patient's lab results. All radiology interpretation(s) finalized by discharge Discharge Plan Discharge Patient Disposition: Home Clinical Impression: Skin tear of elbow without complication Qualifiers: Encounter type: subsequent encounter Laterality: left Qualified Code(s): S51.012D - Laceration without foreign body of left elbow, subsequent encounter Condition: Stable Prescriptions: New mupirocin 2 % ointment 1 applic topical DAILY Qty: 22 0RF No Action levothyroxine 88 mcg tablet 88 mcg PO QAM Eliquis 5 mg tablet 5 mg PO BID gabapentin 600 mg tablet 600 mg PO TID loratadine 10 mg tablet 10 mg PO DAILY PRN (Reason: Allergy Symptoms) Myrbetriq 50 mg tablet extended release 24 hr 50 mg PO QAM cephalexin 500 mg capsule 500 mg PO TID Qty: 15 0RF trazodone 50 mg Tablet 25 - 50 mg PO BEDTIME PRN (Reason: Sleep) duloxetine [Cymbalta] 60 mg Capsule,Delayed Release(Dr/Ec) 60 mg PO QAM cholecalciferol (vitamin D3) 1,250 mcg (50,000 unit) capsule 50,000 unit PO Q7D Rx Instructions: (ON SUNDAYS) hydrocodone-acetaminophen 10-325 mg tablet 1 tab PO TID PRN (Reason: Pain) Thermotabs 287-180-15 mg Tablet 1 tab PO QAM fluticasone propionate [Flonase Allergy Relief] 50 mcg/actuation [place],Suspension 1 - 2 spray INTRANASAL DAILY PRN (Reason: Nasal Congestion) nitroglycerin 0.4 mg tablet, sublingual 0.4 mg SUBLINGUAL Q5M PRN (Reason: chest pain) Qty: 30 0RF Rx Instructions: do not exceed 3 doses per episode tizanidine 2 mg tablet 2 mg PO BID pravastatin 40 mg tablet 40 mg PO DAILY acyclovir 400 mg tablet 400 mg PO TID amlodipine 10 mg tablet 10 mg PO DAILY levalbuterol tartrate 45 mcg/actuation HFA aerosol inhaler 2 puff INHALATION QID PRN (Reason: Shortness Of Breath) Jardiance 10 mg tablet 10 mg PO QAM digoxin 125 mcg (0.125 mg) tablet 125 mcg PO QAM potassium chloride 20 mEq tablet extended release 20 meq PO .FIVE TIMES A DAY montelukast 10 mg Tablet 10 mg PO QAM donepezil 10 mg tablet 10 mg PO QAM alendronate 70 mg tablet 70 mg PO Q7D Rx Instructions: ON THURSDAY lisinopril 10 mg Tablet 10 mg PO BID furosemide 20 mg tablet 20 mg PO QAM Prolia 60 mg/mL syringe See Rx Instructions .ROUTE .COMPLEX Rx Instructions: INJECT CONTENTS OF ONE PEN UNDER SKIN EVERY SIX MONTHS cefdinir 300 mg capsule 300 mg PO BID Qty: 14 0RF Zithromax 250 mg tablet See Rx Instructions .ROUTE .COMPLEX Qty: 6 0RF Rx Instructions: For 250 mg dose pack: take 500 mg today (day 1), then 250 mg for 4 days (days 2-5) ondansetron 4 mg tablet,disintegrating 4 mg PO Q6H PRN (Reason: nausea and vomiting) Qty: 14 0RF Discharge Orders: Discharge ED (Routine); Ordered 09/19/23 Ordered By: Trell Avery Referrals: Alison Ramos MD [Primary Care Provider] - Discharge Diet: Usual diet Discharge Activity: Resume usual activity Patient Instructions: Opioid Safety, Pain Management Activity Restrictions/Additional Instructions: Thank you for choosing [facility] for your healthcare needs today. It is very important that you follow up as instructed or that you return to the Emergency Department should you have concerns or if your condition changes or worsens in any way. You were seen today for a wound where the eschar had removed. There is no sign of infection on the elbow injury. Recommend applying topical antibiotic ointment to the wound once a day and keep covered follow-up as needed Coding Level of Care Code ED Investigations Manager for Juan F Mckinney
== END 2023-09-19 11:40 | disposition home or self-care (01) ==
PROVIDERS: Emergency Provider Family Medicine; PCP Internal Medicine
DX: S51.012A Laceration without foreign body of left elbow, initial encounter (principal); W19.XXXA Unspecified fall, initial encounter; F03.90 Unspecified dementia, unspecified severity, without behavioral disturbance, psychotic disturbance, mood disturbance, and anxiety; J44.9 Chronic obstructive pulmonary disease, unspecified; E78.2 Mixed hyperlipidemia; I11.0 Hypertensive heart disease with heart failure; I50.22 Chronic systolic (congestive) heart failure; Z79.01 Long term (current) use of anticoagulants
CPT/HCPCS: 99283

== ENCOUNTER 2023-10-18 10:59 | Emergency (ER) | payer MEDICARE, MEDICAID, SELFPAY ==
[2023-10-18 11:28] VITALS: BP 105/62; PULSE 72; RESP 16; TEMP 36.9; O2SAT 97
--- NOTE | 2023-10-18 11:43 | W.ED.EXTPRO ---
HPI - Extremity Problem General: Chief complaint: Extremity Injury, Lower Stated complaint: Left lower leg pain Time Seen by Provider: 10/18/23 11:37 History of Present Illness: 82-year-old female with a history of venous stasis, A-fib on Eliquis, COPD, hyperlipidemia, hypertension and dementia who presents to the emergency room with left lower extremity pain. She hit her leg on a piece of furniture about 3 days ago. She is still able to ambulate but ambulation makes pain worse. She has what looks like a bruise/blood blister on the medial side of her lower extremity. There are some surrounding bruising. No warmth or redness. They are concerned it might be infected. Review of Systems Narrative: Constitutional symptoms: Negative except as documented in HPI. Skin symptoms: Negative except as documented in HPI. Eye symptoms: Negative except as documented in HPI. ENMT symptoms: Negative except as documented in HPI. Respiratory symptoms: Negative except as documented in HPI. Cardiovascular symptoms: Negative except as documented in HPI. Gastrointestinal symptoms: Negative except as documented in HPI. Genitourinary symptoms: Negative except as documented in HPI. Musculoskeletal symptoms: Negative except as documented in HPI. Neurologic symptoms: Negative except as documented in HPI. Psychiatric symptoms: Negative except as documented in HPI. Endocrine symptoms: Negative except as documented in HPI. [facility] ED PFSH: Medical History Dyspnea on exertion Peripheral edema Lymphedema Venous stasis dermatitis Hx of fracture of ankle Arthritis DJD (degenerative joint disease) Abdominal hernia Sliding hiatal hernia Hypothyroidism Insomnia Gastroenteritis DDD (degenerative disc disease) Restless legs Pulmonary nodule Diverticulitis Hx of fracture of tibia Dementia Age related osteoporosis Mixed incontinence History of colon polyps COVID Atrial fibrillation with RVR COPD (chronic obstructive pulmonary disease) Anal fissure Chronic back pain Lymphedema of both lower extremities Mixed hyperlipidemia Chronic systolic (congestive) heart failure Essential hypertension Surgical History History of amputation of toe Hx of blepharoplasty History of bladder surgery History of colonoscopy years ago History of hysterectomy Family History Sister Stroke CAD (coronary artery disease) [place] @ 75 Hypertension Brother Cancer Father Cancer Social History (Reviewed 09/21/23 @ 14:11 by JONG Muñoz Smoking and tobacco/nicotine status: tobacco/nicotine user, details unknown Second hand smoke exposure: No Alcohol intake: never Substance/Drug Use: never Adopted: No Caregiver/support person: No Lives independently: Yes Household members: spouse Housing: House Marital status: service: No Current occupational status: retired Do you think of yourself as: Straight/Heterosexual Current gender identity: Female Physical Exam Narrative: EXAM NARRATIVE: General: Alert, no acute distress. Skin: warm and dry, there is a small black blister that appears to be a blood blister with some surrounding bruising. Head: Normocephalic Neck: Trachea midline Eye: Extraocular movements are intact. Ears, nose, mouth and throat: Oral mucosa moist Respiratory: Respirations are non-labored Musculoskeletal: Normal ROM Neurological: Alert and oriented, No focal neurological deficit observed. Psychiatric: Cooperative, appropriate mood & affect. Course Vital Signs: Vital signs: Vital Signs Temperature 98.4 F 10/18/23 11:28 Pulse Rate 72 10/18/23 11:28 Respiratory Rate 16 10/18/23 11:28 Blood Pressure 105/62 10/18/23 11:28 Pulse Oximetry 97 10/18/23 11:28 Oxygen Delivery Me thod Room Air 10/18/23 11:28 MDM - Extremity (Nontraumatic) Medical Decision Making Assessment and plan: Lower extremity injury -Placing patient on Keflex for possible secondary infection - Discharged home - Discussed plan with patient. Answered any questions. - Evaluation and treatment of this problem were appropriate in the emergency setting. No radiology studies performed this visit Discharge Plan Discharge Patient Disposition: Home Clinical Impression: Lower extremity injury, Hematoma Condition: Stable Prescriptions: New cephalexin 500 mg capsule 500 mg PO BID 5 Days Qty: 10 0RF No Action levothyroxine 88 mcg tablet 88 mcg PO QAM Eliquis 5 mg tablet 5 mg PO BID gabapentin 600 mg tablet 600 mg PO TID loratadine 10 mg tablet 10 mg PO DAILY PRN (Reason: Allergy Symptoms) Myrbetriq 50 mg tablet extended release 24 hr 50 mg PO QAM cephalexin 500 mg capsule 500 mg PO TID Qty: 15 0RF amoxicillin-pot clavulanate 875-125 mg tablet 1 tab PO BID Qty: 20 0RF MediHoney (honey) 100 % paste 1 applic topical BID Qty: 103 0RF trazodone 50 mg Tablet 25 - 50 mg PO BEDTIME PRN (Reason: Sleep) duloxetine [Cymbalta] 60 mg Capsule,Delayed Release(Dr/Ec) 60 mg PO QAM cholecalciferol (vitamin D3) 1,250 mcg (50,000 unit) capsule 50,000 unit PO Q7D Rx Instructions: (ON SUNDAYS) hydrocodone-acetaminophen 10-325 mg tablet 1 tab PO TID PRN (Reason: Pain) Thermotabs 287-180-15 mg Tablet 1 tab PO QAM fluticasone propionate [Flonase Allergy Relief] 50 mcg/actuation [place],Suspension 1 - 2 spray INTRANASAL DAILY PRN (Reason: Nasal Congestion) nitroglycerin 0.4 mg tablet, sublingual 0.4 mg SUBLINGUAL Q5M PRN (Reason: chest pain) Qty: 30 0RF Rx Instructions: do not exceed 3 doses per episode tizanidine 2 mg tablet 2 mg PO BID pravastatin 40 mg tablet 40 mg PO DAILY acyclovir 400 mg tablet 400 mg PO TID amlodipine 10 mg tablet 10 mg PO DAILY levalbuterol tartrate 45 mcg/actuation HFA aerosol inhaler 2 puff INHALATION QID PRN (Reason: Shortness Of Breath) Jardiance 10 mg tablet 10 mg PO QAM digoxin 125 mcg (0.125 mg) tablet 125 mcg PO QAM potassium chloride 20 mEq tablet extended release 20 meq PO .FIVE TIMES A DAY mupirocin 2 % ointment 1 applic topical DAILY Qty: 22 0RF montelukast 10 mg Tablet 10 mg PO QAM donepezil 10 mg tablet 10 mg PO QAM alendronate 70 mg tablet 70 mg PO Q7D Rx Instructions: ON THURSDAY lisinopril 10 mg Tablet 10 mg PO BID furosemide 20 mg tablet 20 mg PO QAM Prolia 60 mg/mL syringe See Rx Instructions .ROUTE .COMPLEX Rx Instructions: INJECT CONTENTS OF ONE PEN UNDER SKIN EVERY SIX MONTHS cefdinir 300 mg capsule 300 mg PO BID Qty: 14 0RF Zithromax 250 mg tablet See Rx Instructions .ROUTE .COMPLEX Qty: 6 0RF Rx Instructions: For 250 mg dose pack: take 500 mg today (day 1), then 250 mg for 4 days (days 2-5) ondansetron 4 mg tablet,disintegrating 4 mg PO Q6H PRN (Reason: nausea and vomiting) Qty: 14 0RF Discharge Orders: Discharge ED (Routine); Ordered 10/18/23 Ordered By: Kenya Mcmullen Referrals: Alison Ramos MD [Primary Care Provider] - Discharge Diet: Usual diet Discharge Activity: Increase activity as tolerated Patient Instructions: Hematoma (ED) Activity Restrictions/Additional Instructions: Thank you for choosing [facility] for your healthcare needs today. Please realize this is an emergency room and that we are providing you with a medical screening exam and this may not be complete and all inclusive of all the testing and or work up that you may need to determine your ailment or severity of your illness. You have been screened and evaluated and felt safe for discharge. Health conditions do change or evolve sometimes and as such it is important that you follow up with your Primary Doctor to be re checked, 3-5 days is a general good time frame for follow up. You are always welcome to return to the ED for re assessment if your symptoms are worsening or you have new concerns Coding Level of Care Code ED Timber Hewer for Juan F Mckinney
== END 2023-10-18 12:07 | disposition home or self-care (01) ==
PROVIDERS: Emergency Provider Emergency Medicine; PCP Internal Medicine
DX: S80.12XA Contusion of left lower leg, initial encounter (principal); J44.9 Chronic obstructive pulmonary disease, unspecified; F03.90 Unspecified dementia, unspecified severity, without behavioral disturbance, psychotic disturbance, mood disturbance, and anxiety; W22.8XXA Striking against or struck by other objects, initial encounter; E78.2 Mixed hyperlipidemia; I11.0 Hypertensive heart disease with heart failure; I50.22 Chronic systolic (congestive) heart failure; Z72.0 Tobacco use; Z79.01 Long term (current) use of anticoagulants
CPT/HCPCS: 99283

== ENCOUNTER 2023-10-21 11:31 | Emergency (ER) | payer MEDICARE, MEDICAID, SELFPAY ==
--- NOTE | 2023-10-21 11:36 | XR_ITS ---
WS: [id number] Left leg including the tibia and fibula, 3 views, 10/21/2023 Clinical Data: leg pain Comparison: Left knee, 08/12/2022 Findings: There is a lateral plate of the proximal tibia fixed with 4 orthopedic screws repairing an old proxim al tibial fracture. There is a single oblique screw in the medial malleolus repairing an old fracture . The distal portion of the screw protrudes from the bone into the soft tissue. No new fractures are seen. The soft tissues are normal. The fibula is intact. XR/XR tibia fibula LT 2V [id number] Impression: 1. Internal fixation of old proximal left tibial fracture and medial malleolar fracture. 2. Distal portion of medial malleolar screw protrudes into the soft tissues.
[2023-10-21 11:39] VITALS: BP 115/64; PULSE 70; RESP 16; TEMP 36.8; O2SAT 95; BMI 28.3
--- NOTE | 2023-10-21 12:02 | ED_ITS ---
HPI - Wound/Laceration General: Chief Complaint: Wound/Laceration Stated Complaint: Leg Wound Time Seen by Provider: 10/21/23 11:32 Source: patient and EMS Mode of arrival: EMS Limitations: no limitations History of Present Illness: 82-year-old female states she did hit he r left lower leg on a counter earlier this week she has now what she is worried is an abscess or hematoma to her left lower leg she has pain at that site denies any drainage denies any fever. Associated symptoms: Denies chills, fever(s), nausea or vomiting Review of Systems Const: Denies: fever(s), chills, body aches or change in appetite ENMT: Denies: throat pain or dental pain Card: Denies: chest pain Resp: Denies: dyspnea GI: Denies: abdominal pain, nausea, vomiting or diarrhea Musc: Reports: extremity pain; Denies: neck pain or back pain Skin/Breast: Denies: rash Neuro: Denies: headache(s) PFSH ED PFSH: Medical History Dyspnea on exertion Peripheral edema Lymphedema Venous stasis dermatitis Hx of fracture of ankle Arthritis DJD (degenerative joint disease) Abdominal hernia Sliding hiatal hernia Hypothyroidism Insomnia Gastroenteritis DDD (degenerative disc disease) Restless legs Pulmonary nodule Diverticulitis Hx of fracture of tibia Dementia Age related osteoporosis Mixed incontinence History of colon polyps COVID Atrial fibrillation with RVR COPD (chronic obstructive pulmonary disease) Anal fissure Chronic back pain Lymphedema of both lower extremities Mixed hyperlipidemia Chronic systolic (congestive) heart failure Essential hypertension Surgical History History of amputation of toe Hx of blepharoplasty History of bladder surgery History of colonoscopy years ago History of hysterectomy Family History Sister Stroke CAD (coronary artery disease) [place] @ 75 Hypertension Brother Cancer Father Cancer Social History Smoking and tobacco/nicotine status: tobacco/nicotine user, details unknown Second hand smoke exposure: No Alcohol intake: never Substance/Drug Use: never Adopted: No Caregiver/support person: No Lives independently: Yes Household members: spouse Housing: House Marital status: service: No Current occupational status: retired Do you think of yourself as: Straight/Heterosexual Current gender identity: Female Physical Exam Const: COMMON NORMALS: no acute distress, patient oriented x3 and healthy appearing HENMT: COMMON NORMALS: normocephalic and atraumatic HEAD & SCALP: normocephalic and atraumatic Neck/C-Spine: COMMON NORMALS: full ROM and supple Chest: COMMONS NORMALS: normal inspection of the chest Resp: COMMON NORMALS: normal respiratory effort Cardio: COMMON NORMALS: regular rate, regular rhythm and No murmurs present (Cardio) RATE: regular rate RHYTHM: regular rhythm Extremity: COMMON NORMALS: full ROM NARRATIVE EXTREMITY EXAM: 2 cm what appears to be hematoma to left lower leg no erythema noted Neuro: COMMON NORMALS: patient oriented x3, moves all extremities and no focal motor deficits Psych: COMMON NORMALS: mental status grossly normal, Normal thought process present and cooperative THOUGHT PROCESS: Normal thought process present Skin: COMMON NORMALS: no rashes or lesions noted and no wounds GENERAL SKIN EXAM: no rashes or lesions noted Procedures Abscess I/D Site: lower extremity Side (if applicable): left Local Anesthetic: lidocaine 1% Amount of anesthesia used (mL): 5 Technique: incised with #11 blade Course Vital Signs: Vital signs: Vital Signs Temperature 98.2 F 10/21/23 11:39 Pulse Rate 70 10/21/23 11:39 Respiratory Rate 16 10/21/23 11:39 Blood Pressure 115/64 10/21/23 11:39 Pulse Oximetry 95 10/21/23 11:39 Oxygen Delivery Me thod Room Air 10/21/23 11:39 MDM - Wound/Laceration Medical Decision Making Patient presents here with hematoma to left lower leg x-ray shows no fracture I did incise and evacuate the hematoma no purulent material she stable for discharge Medical Records I reviewed the patient's medical records. All radiology interpretation(s) finalized by discharge Discharge Plan Discharge Patient Disposition: Home Clinical Impression: Hematoma of left lower leg Condition: Stable Prescriptions: No Action levothyroxine 88 mcg tablet 88 mcg PO QAM Eliquis 5 mg tablet 5 mg PO BID gabapentin 600 mg tablet 600 mg PO TID loratadine 10 mg tablet 10 mg PO DAILY PRN (Reason: Allergy Symptoms) Myrbetriq 50 mg tablet extended release 24 hr 50 mg PO QAM cephalexin 500 mg capsule 500 mg PO TID Qty: 15 0RF amoxicillin-pot clavulanate 875-125 mg tablet 1 tab PO BID Qty: 20 0RF MediHoney (honey) 100 % paste 1 applic topical BID Qty: 103 0RF trazodone 50 mg Tablet 25 - 50 mg PO BEDTIME PRN (Reason: Sleep) duloxetine [Cymbalta] 60 mg Capsule,Delayed Release(Dr/Ec) 60 mg PO QAM cholecalciferol (vitamin D3) 1,250 mcg (50,000 unit) capsule 50,000 unit PO Q7D Rx Instructions: (ON SUNDAYS) hydrocodone-acetaminophen 10-325 mg tablet 1 tab PO TID PRN (Reason: Pain) Thermotabs 287-180-15 mg Tablet 1 tab PO QAM fluticasone propionate [Flonase Allergy Relief] 50 mcg/actuation [place],Suspension 1 - 2 spray INTRANASAL DAILY PRN (Reason: Nasal Congestion) nitroglycerin 0.4 mg tablet, sublingual 0.4 mg SUBLINGUAL Q5M PRN (Reason: chest pain) Qty: 30 0RF Rx Instructions: do not exceed 3 doses per episode tizanidine 2 mg tablet 2 mg PO BID pravastatin 40 mg tablet 40 mg PO DAILY acyclovir 400 mg tablet 400 mg PO TID amlodipine 10 mg tablet 10 mg PO DAILY levalbuterol tartrate 45 mcg/actuation HFA aerosol inhaler 2 puff INHALATION QID PRN (Reason: Shortness Of Breath) Jardiance 10 mg tablet 10 mg PO QAM digoxin 125 mcg (0.125 mg) tablet 125 mcg PO QAM potassium chloride 20 mEq tablet extended release 20 meq PO .FIVE TIMES A DAY mupirocin 2 % ointment 1 applic topical DAILY Qty: 22 0RF montelukast 10 mg Tablet 10 mg PO QAM donepezil 10 mg tablet 10 mg PO QAM alendronate 70 mg tablet 70 mg PO Q7D Rx Instructions: ON THURSDAY lisinopril 10 mg Tablet 10 mg PO BID furosemide 20 mg tablet 20 mg PO QAM Prolia 60 mg/mL syringe See Rx Instructions .ROUTE .COMPLEX Rx Instructions: INJECT CONTENTS OF ONE PEN UNDER SKIN EVERY SIX MONTHS cefdinir 300 mg capsule 300 mg PO BID Qty: 14 0RF Zithromax 250 mg tablet See Rx Instructions .ROUTE .COMPLEX Qty: 6 0RF Rx Instructions: For 250 mg dose pack: take 500 mg today (day 1), then 250 mg for 4 days (days 2-5) ondansetron 4 mg tablet,disintegrating 4 mg PO Q6H PRN (Reason: nausea and vomiting) Qty: 14 0RF cephalexin 500 mg capsule 500 mg PO BID 5 Days Qty: 10 0RF Discharge Orders: Discharge ED (Routine); Ordered 10/21/23 Ordered By: Lina Richards Referrals: Alison Ramos MD [Primary Care Provider] - 4-7 days Discharge Diet: Advance as tolerated Discharge Activity: Resume usual activity Patient Instructions: Hematoma (ED) Coding Level of Care Code ED Senior It Security Analyst for Juan F Mckinney
[2023-10-21 12:45] VITALS: PULSE 75; O2SAT 91
== END 2023-10-21 12:55 | disposition home or self-care (01) ==
PROVIDERS: Emergency Provider Emergency Medicine; PCP Internal Medicine
DX: S80.12XA Contusion of left lower leg, initial encounter (principal); Z79.01 Long term (current) use of anticoagulants; Z72.0 Tobacco use; F03.90 Unspecified dementia, unspecified severity, without behavioral disturbance, psychotic disturbance, mood disturbance, and anxiety; J44.9 Chronic obstructive pulmonary disease, unspecified; E78.2 Mixed hyperlipidemia; I11.0 Hypertensive heart disease with heart failure; I50.22 Chronic systolic (congestive) heart failure; W22.8XXA Striking against or struck by other objects, initial encounter
CPT/HCPCS: 10140; 73590; 99283

== ENCOUNTER 2023-10-27 14:40 | Emergency (ER) | payer MEDICARE, MEDICAID, SELFPAY ==
--- NOTE | 2023-10-27 14:42 | ECG_ITS ---
[facility] Test Date: 2023-10-27 Pat Name: Arielle Vences Department: Room: Gender: Female Plate Setter: : 1940 Requested By: India Hoffmann Order Number: [id number] Reba MD: Tremayne Hermosillo M.D. Measurements Intervals [place] Rate: 98 P: 0 CA: 0 QRS: -18 QRSD: 72 T: -23 QT: 332 QTc: 424 Interpretive Statements ATRIAL FIBRILLATION ANTEROSEPTAL MYOCARDIAL INFARCTION , PROBABLY OLD [40+ ms Q WAVE IN V1-V4] Compared to ECG 07/18/2023 18:49:11 Myocardial infarct finding now present Left anterior fascicular block no longer present Electronically Signed On 10-27-2023 18:10:46 CDT by Tremayne Hermosillo M.D. [id number]
--- NOTE | 2023-10-27 14:47 | XRR_ITS ---
PROCEDURE INFORMATION: Exam: XR Chest Exam date and time: 10/27/2023 3:46 PM Age: 82 years old Clinical indication: Pain; Chest pressure; Additional info: Chest pain TECHNIQUE: Imaging protocol: Radiologic exam of the chest. Views: 1 view. COMPARISON: CR XR chest 1V portable [id number] 07/18/2023 6:27 PM FINDINGS: Lungs: Mild hyperinflation. Scattered reticulonodular opacities peribronchial thickening again demonstrated, increased slightly in the right lung base/mid lung zone. Pleural spaces: Unremarkable. No pleural effusion. No pneumothorax. Heart/Mediastinum: Stable mild cardiomegaly. Bones/joints: Unremarkable. XR/XR chest 1V portable [id number] IMPRESSION: 1. Increased mild reticulonodular opacities in the right midlung zone and lung base compared to 07/18/2023, likely due to inflammatory etiology but warrants short interval follow-up in 4-6 weeks. 2. Stable mild hyperinflation suggestive of COPD. Stable mild cardiomegaly.
[2023-10-27 14:50] VITALS: BP 126/73; PULSE 87; RESP 22; TEMP 36.4; O2SAT 96
--- NOTE | 2023-10-27 15:04 | ED_ITS ---
HPI - General Adult 2 General: Chief complaint: General Medical Stated complaint: SOB, chest pain Time Seen by Provider: 10/27/23 14:56 Source: patient and family () Mode of arrival: ambulatory Limitations: no limitations History of Present Illness: Patient is an 82-year-old female with an extensive past medical history here with her for medical evaluation. Patient herself does not provide a good history secondary to her dementia. Has been states prior to arrival they were in their vehicle and states the air conditioner is broken. He states patient began shivering stating that she was cold and told her to take me to the hospital . Upon arrival her only complaint is feeling cold and shivering. She is otherwise in no acute distress. She arrives with stable vital signs. Her temperature upon arrival is 97.5. He has not been sick recently. She has no URI-like symptoms. She has no complaints of pain. Onset (ago): hour(s) Severity: mild Relieving factors: none Exacerbating factors: none Associated symptoms: Reports no associated symptoms; Deny chest pain, dyspnea, headache(s), malaise, syncope or vomiting Treatments prior to arrival: none Review of Systems 2 General: Reports: Other (felt to be somewhat limited due to her dementia) Const: Reports: chills; Denies: fever(s), body aches, fatigue or malaise Eyes: Denies: change in vision ENMT: Denies: throat pain, odynophagia, nasal discharge, nasal congestion or sinus pain Card: Reports: irregular heart rhythm (chronic a fib); Denies: chest pain, lightheadedness, syncope or pre-syncope Resp: Denies: dyspnea GI: Denies: abdominal pain, vomiting or diarrhea : Denies: flank pain or dysuria Musc: Reports: other (recent hematoma drainage L LE); Denies: neck pain, back pain, extremity pain, extremity swelling or joint pain Neuro: Denies: headache(s) or dizziness PFSH ED 2 PFSH: Medical History Dyspnea on exertion Peripheral edema Lymphedema Venous stasis dermatitis Hx of fracture of ankle Arthritis DJD (degenerative joint disease) Abdominal hernia Sliding hiatal hernia Hypothyroidism Insomnia Gastroenteritis DDD (degenerative disc disease) Restless legs Pulmonary nodule Diverticulitis Hx of fracture of tibia Dementia Age related osteoporosis Mixed incontinence History of colon polyps COVID Atrial fibrillation with RVR COPD (chronic obstructive pulmonary disease) Anal fissure Chronic back pain Lymphedema of both lower extremities Mixed hyperlipidemia Chronic systolic (congestive) heart failure Essential hypertension Surgical History History of amputation of toe Hx of blepharoplasty History of bladder surgery History of colonoscopy years ago History of hysterectomy Family History Sister Stroke CAD (coronary artery disease) [place] @ 75 Hypertension Brother Cancer Father Cancer Social History Smoking and tobacco/nicotine status: tobacco/nicotine user, details unknown Second hand smoke exposure: No Alcohol intake: never Substance/Drug Use: never Adopted: No Caregiver/support person: No Lives independently: Yes Household members: spouse Housing: House Marital status: service: No Current occupational status: retired Do you think of yourself as: Straight/Heterosexual Current gender identity: Female Physical Exam 2 Const: COMMON NORMALS: no acute distress, average body habitus, healthy appearing, alert and well nourished EXAM LIMITATIONS: other limitations (chronic dementia; at baseline per ) GENERAL APPEARANCE: cooperative HENMT: COMMON NORMALS: normocephalic and atraumatic HEAD & SCALP: normal to inspection, normocephalic and atraumatic Eye: COMMON NORMALS: no scleral icterus Neck/C-Spine: COMMON NORMALS: no lymphadenopathy and no meningeal signs Resp: COMMON NORMALS: normal respiratory effort and clear to auscultation bilaterally AUSCULTATION: clear to auscultation bilaterally Cardio: COMMON NORMALS: regular rate RATE: regular rate RHYTHM: abnormal rhythm irregularly irregular GI: COMMON NORMALS: Normal to inspection, nondistended, normoactive bowel sounds present, Soft to palpation and non-tender PALPATION: Yes Soft to palpation : COMMON NORMALS: Yes no CVA tenderness BLADDER/KIDNEY EXAM: Yes no CVA tenderness Back/Pelvis: COMMON NORMALS: no CVA tenderness Extremity: NARRATIVE EXTREMITY EXAM: chronic venous stasis dermatitis; recent hematoma evacuation to L LE appears clean GENERAL: Yes normal exam except as noted Neuro: ERIKA COMA SCALE: document GCS findings [place] coma scale eye opening: Spontaneous [place] coma scale verbal response: Orientated [place] coma scale motor response: Obey commands Erika coma scale total score: 15 COMMON NORMALS: moves all extremities, no focal motor deficits and no sensory deficits noted SENSORIUM/ORIENTATION: Yes alert MENINGEAL SIGNS: Yes no meningeal signs Skin: COMMON NORMALS: no rashes or lesions noted GENERAL SKIN EXAM: no rashes or lesions noted Course 2 Vital Signs: Vital signs: Vital Signs Temperature 97.5 F L 10/27/23 14:50 Pulse Rate 87 10/27/23 14:50 Respiratory Rate 22 H 10/27/23 14:50 Blood Pressure 126/73 10/27/23 14:50 Pulse Oximetry 96 10/27/23 14:50 MDM - General Adult Medical Decision Making Patient here along with her for evaluation of chills in the absence of other symptoms. She arrives in no acute distress with stable vital signs. Her workup here is benign. She does have elevations to her baseline troponin and BNP that are at baseline. She has no evidence of infection. Her UA and CXR are unremarkable. She has normal white count. She is afebrile. Patient will be allowed discharge. She will follow-up with primary care later this week if needed. Return to ED precautions given. Medical Records I reviewed the patient's medical records. Lab Data I reviewed the patient's lab results. 10/27/23 15:03 10/27/23 15:03 Laboratory Results WBC 8.41 10^3/uL (3.29-11.43) 10/27/23 15:03 RBC 4.56 10^6/uL (3.85-5.65) 10/27/23 15:03 Hgb 13.40 g/dL (11.27-16.99) 10/27/23 15:03 Hct 41.1 % (36-47) 10/27/23 15:03 MCV 90.1 fl (85-98) 10/27/23 15:03 MCH 29.4 pg (27-33) 10/27/23 15:03 MCHC 32.6 g/dL (30-55) 10/27/23 15:03 RDW 13.8 % (12.1-15.1) 10/27/23 15:03 Plt Count 229 10^3/cmm (157-399) 10/27/23 15:03 MPV 9.5 fL (7.4-10.4) 10/27/23 15:03 Neut % (Auto) 78.7 % 10/27/23 15:03 Lymph % (Auto) 8.9 % 10/27/23 15:03 Amelia % (Auto) 10.8 % 10/27/23 15:03 Eos % (Auto) 1.2 % 10/27/23 15:03 Baso % (Auto) 0.2 % 10/27/23 15:03 Neut # (Auto) 6.61 10^3/uL (1.8-7.7) 10/27/23 15:03 Lymph # (Auto) 0.8 10^3/uL (0.8-4.8) 10/27/23 15:03 Amelia # (Auto) 0.9 10^3/uL (0.2-0.9) 10/27/23 15:03 Eos # (Auto) 0.1 10^3/uL (0.0-0.8) 10/27/23 15:03 Baso # (Auto) 0.0 10^3/uL (0.0-0.1) 10/27/23 15:03 Nucleated RBC % (auto) 0 % 10/27/23 15:03 Nucleated RBCs # 0.0 /100WBC 10/27/23 15:03 Sodium 135 mmol/L (136-145) L 10/27/23 15:03 Potassium 4.0 mmol/L (3.5-5.1) 10/27/23 15:03 Chloride 99 mmol/L (98-107) 10/27/23 15:03 Carbon Dioxide 22 mmol/L (22-29) 10/27/23 15:03 Anion Gap 18.0 (5-19) 10/27/23 15:03 BUN 11 mg/dL (8-23) 10/27/23 15:03 Creatinine 1.0 mg/dL (0.5-0.9) H 10/27/23 15:03 GFR Calculation Not Reportable 10/27/23 15:03 Glucose 108 mg/dL (65-115) 10/27/23 15:03 Calculated Osmolality 280 mOsm/kg (285-295) L 10/27/23 15:03 Calcium 9.8 mg/dL (8.5-10.5) 10/27/23 15:03 Total Bilirubin 0.7 mg/dL (0.15-1.2) 10/27/23 15:03 AST 17 U/L (0-32) 10/27/23 15:03 ALT 9 U/L (0-33) 10/27/23 15:03 Alkaline Phosphatase 73 U/L (35-105) 10/27/23 15:03 Troponin T Baseline 26 ng/L (0-10) H 10/27/23 15:03 NT-Pro-B Natriuret Pep 1198 pg/mL (0-450) H 10/27/23 15:03 Total Protein 7.6 g/dL (6.6-8.7) 10/27/23 15:03 Albumin 4.3 g/dL (3.5-5.2) 10/27/23 15:03 Globulin 3.3 g/dL (1.3-4.6) 10/27/23 15:03 TSH 2.15 uIU/mL (0.27-4.20) 10/27/23 15:03 Urine Color Yellow (Yellow) 10/27/23 16:18 Urine Appearance Clear (CLEAR) 10/27/23 16:18 Urine pH 5.5 (5-7) 10/27/23 16:18 Ur Specific [place] 1.030 (1.005-1.030) 10/27/23 16:18 Urine Protein Trace (Negative) A 10/27/23 16:18 Urine Glucose (UA) 3+ (Normal) H 10/27/23 16:18 Urine Ketones Trace (Negative) 10/27/23 16:18 Urine Blood Negative (Negative) 10/27/23 16:18 Urine Nitrate Negative (Negative) 10/27/23 16:18 Urine Bilirubin Negative (Negative) 10/27/23 16:18 Urine Urobilinogen 1.0 mg/dL (Negative) 10/27/23 16:18 Ur Leukocyte Esterase Negative (Negative) 10/27/23 16:18 Amorphous Sediment Not Reportable 10/27/23 16:18 Digoxin 0.8 ng/mL (0.6-1.2) 10/27/23 15:03 XR interpretation done by ED provider, pending radiology final review ED provider radiology interpretation(s): XR interpretation done by ED provider, pending radiology final review ED provider radiology interpretation(s): CXR reviewed with no changes from previous Discharge Plan Discharge Patient Disposition: Home Clinical Impression: Chills (without fever) Condition: Stable Prescriptions: No Action levothyroxine 88 mcg tablet 88 mcg PO QAM Eliquis 5 mg tablet 5 mg PO BID gabapentin 600 mg tablet 600 mg PO TID loratadine 10 mg tablet 10 mg PO DAILY PRN (Reason: Allergy Symptoms) Myrbetriq 50 mg tablet extended release 24 hr 50 mg PO QAM cephalexin 500 mg capsule 500 mg PO TID Qty: 15 0RF clindamycin HCl 300 mg capsule 300 mg PO TID Qty: 30 0RF amoxicillin-pot clavulanate 875-125 mg tablet 1 tab PO BID Qty: 20 0RF MediHoney (honey) 100 % paste 1 applic topical BID Qty: 103 0RF trazodone 50 mg Tablet 25 - 50 mg PO BEDTIME PRN (Reason: Sleep) duloxetine [Cymbalta] 60 mg Capsule,Delayed Release(Dr/Ec) 60 mg PO QAM cholecalciferol (vitamin D3) 1,250 mcg (50,000 unit) capsule 50,000 unit PO Q7D Rx Instructions: (ON SUNDAYS) hydrocodone-acetaminophen 10-325 mg tablet 1 tab PO TID PRN (Reason: Pain) Thermotabs 287-180-15 mg Tablet 1 tab PO QAM fluticasone propionate [Flonase Allergy Relief] 50 mcg/actuation [place],Suspension 1 - 2 spray INTRANASAL DAILY PRN (Reason: Nasal Congestion) nitroglycerin 0.4 mg tablet, sublingual 0.4 mg SUBLINGUAL Q5M PRN (Reason: chest pain) Qty: 30 0RF Rx Instructions: do not exceed 3 doses per episode tizanidine 2 mg tablet 2 mg PO BID pravastatin 40 mg tablet 40 mg PO DAILY acyclovir 400 mg tablet 400 mg PO TID amlodipine 10 mg tablet 10 mg PO DAILY levalbuterol tartrate 45 mcg/actuation HFA aerosol inhaler 2 puff INHALATION QID PRN (Reason: Shortness Of Breath) Jardiance 10 mg tablet 10 mg PO QAM digoxin 125 mcg (0.125 mg) tablet 125 mcg PO QAM potassium chloride 20 mEq tablet extended release 20 meq PO .FIVE TIMES A DAY mupirocin 2 % ointment 1 applic topical DAILY Qty: 22 0RF montelukast 10 mg Tablet 10 mg PO QAM donepezil 10 mg tablet 10 mg PO QAM alendronate 70 mg tablet 70 mg PO Q7D Rx Instructions: ON THURSDAY lisinopril 10 mg Tablet 10 mg PO BID furosemide 20 mg tablet 20 mg PO QAM Prolia 60 mg/mL syringe See Rx Instructions .ROUTE .COMPLEX Rx Instructions: INJECT CONTENTS OF ONE PEN UNDER SKIN EVERY SIX MONTHS cefdinir 300 mg capsule 300 mg PO BID Qty: 14 0RF Zithromax 250 mg tablet See Rx Instructions .ROUTE .COMPLEX Qty: 6 0RF Rx Instructions: For 250 mg dose pack: take 500 mg today (day 1), then 250 mg for 4 days (days 2-5) ondansetron 4 mg tablet,disintegrating 4 mg PO Q6H PRN (Reason: nausea and vomiting) Qty: 14 0RF Discharge Orders: Discharge ED (Routine); Ordered 10/27/23 Ordered By: India Hoffmann Referrals: Alison Ramso MD [Primary Care Provider] - Activity Restrictions/Additional Instructions: Patient's workup here in the emergency department is unremarkable. She can follow-up with primary care later this week if needed for re-evaluation. Coding Level of Care Code ED Varnishing Unit Tool Setter for Juan F Mckinney
[2023-10-27 15:11] LABS: Basophils % 0.2 %; Eosinophils # 0.1 10^3/uL (0.0-0.8); Eosinophils % 1.2 %; Hematocrit 41.1 % (36-47); Lymphocytes # 0.8 10^3/uL (0.8-4.8); Lymphocytes % 8.9 %; Mean Corpuscular HGB Conc 32.6 g/dL (30-55); Mean Corpuscular Hemoglobin 29.4 pg (27-33); Mean Corpuscular Volume 90.1 fl (85-98); Mean Platelet Volume 9.5 fL (7.4-10.4); Monocytes # 0.9 10^3/uL (0.2-0.9); Monocytes % 10.8 %; Neutrophils # 6.61 10^3/uL (1.8-7.7); Neutrophils % 78.7 %; Nucleated Red Blood Cells % 0 %; Platelet Count 229 10^3/cmm (157-399); Red Blood Count 4.56 10^6/uL (3.85-5.65); Red Cell Distribution Width 13.8 % (12.1-15.1); White Blood Count 8.41 10^3/uL (3.29-11.43)
[2023-10-27 15:30] LABS: Digoxin 0.8 ng/mL (0.6-1.2)
[2023-10-27 15:31] LABS: Troponin(5th) Baseline 26 ng/L (0-10)
[2023-10-27 15:38] LABS: Alanine Aminotransferase 9 U/L (0-33); Albumin Level 4.3 g/dL (3.5-5.2); Alkaline Phosphatase 73 U/L (35-105); Aspartate Amino Transferase 17 U/L (0-32); Blood Urea Nitrogen 11 mg/dL (8-23); Calcium 9.8 mg/dL (8.5-10.5); Carbon Dioxide 22 mmol/L (22-29); Chloride 99 mmol/L (98-107); Globulin 3.3 g/dL (1.3-4.6); Glucose 108 mg/dL (65-115); NT Pro B Type Natriuretic Pept 1198 pg/mL (0-450); Osmolality Calculated 280 mOsm/kg (285-295); Sodium 135 mmol/L (136-145); Thyroid Stimulating Hormone 2.15 uIU/mL (0.27-4.20); Total Bilirubin 0.7 mg/dL (0.15-1.2); Total Protein 7.6 g/dL (6.6-8.7)
[2023-10-27 16:27] LABS: Charge for UA Resulting for Rev
[2023-10-27 16:35] LABS: Bilirubin Urine Negative (Negative); Blood Urine Negative (Negative); Glucose Urine UA 3+ (Normal); Ketones Urine Trace (Negative); Leukocyte Esterase Urine Negative (Negative); Nitrate Urine Negative (Negative); Protein Urine Trace (Negative); Urine Appearance Clear (CLEAR); Urine Color Yellow (Yellow); pH Urine 5.5 (5-7)
[2023-10-27 16:40] LABS: Bacteria Urine None Seen /hpf; Hyaline Casts Urine 1.65 /lpf; RBC Urine 0-2 /hpf (0-2); Squamous Epithelial Cell Urine 0-5 /hpf (0-5); WBC Urine 0-5 /hpf (0-5)
[2023-10-27 16:57] LABS: Add Urine Culture? No
[2023-10-27 17:28] LABS: Troponin 5 2HR 25.45 ng/L (0-10)
[2023-10-27 17:40] LABS: Troponin 5 2HR Delta -0.55 ABS# (0-10)
== END 2023-10-27 17:43 | disposition home or self-care (01) ==
PROVIDERS: Emergency Provider Physician Assistant; PCP Internal Medicine
DX: R68.83 Chills (without fever) (principal); Z79.01 Long term (current) use of anticoagulants; Z72.0 Tobacco use; F03.90 Unspecified dementia, unspecified severity, without behavioral disturbance, psychotic disturbance, mood disturbance, and anxiety; J44.9 Chronic obstructive pulmonary disease, unspecified; E78.2 Mixed hyperlipidemia; I11.0 Hypertensive heart disease with heart failure; I50.22 Chronic systolic (congestive) heart failure
CPT/HCPCS: 36415; 71045; 80053; 80162; 81003; 81015; 83880; 84443; 84484; 85025; 93005; 99285

== ENCOUNTER 2024-02-22 19:10 | Emergency (ER) | payer MEDICARE, MEDICAID, SELFPAY ==
[2024-02-22] VITALS (12 sets, daily range): BP systolic 128–165; BP diastolic 70–128; PULSE 77–106; RESP 16–22; TEMP 36.8; O2SAT 84–98; BMI 27.4
--- NOTE | 2024-02-22 19:16 | XRR_ITS ---
PROCEDURE INFORMATION: Exam: XR Chest Exam date and time: 02/22/2024 7:20 PM Age: 83 years old Clinical indication: Pain; Chest pressure; Additional info: Chest pain TECHNIQUE: Imaging protocol: Radiologic exam of the chest. Views: 1 view. COMPARISON: CR XR chest 1V portable [id number] 10/27/2023 3:46 PM FINDINGS: Tubes, catheters and devices: None. Lungs: Left-sided pulmonary linear interstitial opacities identified within lower lung. The lungs appear otherwise clear. Pleural spaces: No pleural effusion. No pneumothorax. Heart/Mediastinum: The cardiac silhouette appears borderline prominent. Vasculature: Tortuous and ectatic aorta is demonstrated. [id number] atherosclerotic calcification demonstrated within the aorta. Bones/joints: Diffusely decreased bone density. Generalized bony degenerative changes. XR/XR chest 1V portable [id number] IMPRESSION: 1. Borderline prominence of the cardiac silhouette. 2. Pulmonary atelectasis or acute infiltrates within left lower chest. 3. Chronic findings.
--- NOTE | 2024-02-22 19:23 | PC.NURSE ---
pt is only alert and oriented to self and was not able to answer the SI questions
--- NOTE | 2024-02-22 19:30 | ECG_ITS ---
[facility] Date: 2024-02-22 Pat Name: Arielle Vences Department: Room: Gender: Female Medical Radiation Dosimetrist: : 1940 Requested By: Kenya Keen Order Number: [id number] Britton MD: Tremayne Hermosillo M.D. Measurements Intervals [place] Rate: 96 P: 0 [place]: 0 QRS: -35 QRSD: 98 T: 73 QT: 367 QTc: 464 Interpretive Statements ATRIAL FIBRILLATION LEFT AXIS DEVIATION [QRS AXIS < -30] SEPTAL MYOCARDIAL INFARCTION , PROBABLY OLD [40+ ms Q WAVE IN V1/V2] Compared to ECG 10/27/2023 14:42:22 Left-axis deviation now present Myocardial infarct finding still present Electronically Signed On 02-23-2024 21:35:34 SIDE STITCHING MACHINE OPERATOR by Tremayne Hermosillo M.D. [email or web address]
[2024-02-22 19:46] LABS: Basophils % 0.5 %; Eosinophils # 0.2 10^3/uL (0.0-0.8); Eosinophils % 2.5 %; Hematocrit 33.6 % (36-47); Lymphocytes # 1.1 10^3/uL (0.8-4.8); Lymphocytes % 15.5 %; Mean Corpuscular HGB Conc 31.3 g/dL (30-55); Mean Corpuscular Hemoglobin 26.3 pg (27-33); Mean Corpuscular Volume 84.2 fl (85-98); Mean Platelet Volume 9.7 fL (7.4-10.4); Monocytes # 0.8 10^3/uL (0.2-0.9); Monocytes % 11.1 %; Neutrophils % 70.1 %; Nucleated Red Blood Cells % 0 %; Platelet Count 280 10^3/cmm (157-399); Red Blood Count 3.99 10^6/uL (3.85-5.65); Red Cell Distribution Width 14.9 % (12.1-15.1); White Blood Count 7.28 10^3/uL (3.29-11.43)
[2024-02-22 20:17] LABS: Alanine Aminotransferase 7 U/L (0-33); Albumin Level 4.3 g/dL (3.5-5.2); Alkaline Phosphatase 65 U/L (35-105); Anion Gap 12.2 (5-19); Aspartate Amino Transferase 17 U/L (0-32); Blood Urea Nitrogen 17 mg/dL (8-23); Calcium 9.8 mg/dL (8.5-10.5); Carbon Dioxide 29 mmol/L (22-29); Chloride 99 mmol/L (98-107); Creatinine Clr Calc Pharmacy 40.6121; Globulin 2.6 g/dL (1.3-4.6); Glucose 103 mg/dL (65-115); Osmolality Calculated 284 mOsm/kg (285-295); Potassium 4.2 mmol/L (3.5-5.1); Sodium 136 mmol/L (136-145); Total Bilirubin 0.4 mg/dL (0.15-1.2); Total Protein 6.9 g/dL (6.6-8.7); Troponin(5th) Baseline 31 ng/L (0-10)
--- NOTE | 2024-02-22 20:41 | ED_ITS ---
HPI - General Adult 2 General: Chief complaint: General Medical Stated complaint: CHEST PAIN Time Seen by Provider: 02/22/24 19:15 History of Present Illness: 83-year-old female with a history of hyp ertension, obesity, hyperlipidemia, atrial fibrillation, chronic anticoagulation on Eliquis, lymphedema, venous stasis dermatitis, and COPD who presents to the emergency room after having had an episode of chest pain. At this point she says she has no chest pain. She seem to have some confusion/maybe some baseline dementia. EMS reports that she did take nitro at home. Related Data Home Medications Medication Instructions Recorded Confirmed apixaban 5 mg tablet (Eliquis) 5 mg PO BID 04/06/19 11/27/23 gabapentin 600 mg tablet 600 mg PO TID 04/06/19 11/27/23 levothyroxine 88 mcg tablet 88 mcg PO QAM 04/06/19 11/27/23 loratadine 10 mg tablet 10 mg PO DAILY PRN Allergy Symptoms 04/06/19 11/27/23 mirabegron 50 mg tablet,extended 50 mg PO QAM 04/06/19 11/27/23 release 24 hr (Myrbetriq) cholecalciferol (vitamin D3) 1,250 50,000 unit PO Q7D 05/11/19 11/27/23 mcg (50,000 unit) capsule duloxetine 60 mg capsule,delayed 60 mg PO QAM 05/11/19 11/27/23 release (Cymbalta) trazodone 50 mg tablet 25 - 50 mg PO BEDTIME PRN Sleep 05/11/19 11/27/23 fluticasone propionate 50 1 - 2 spray intranasal DAILY PRN 09/09/19 11/27/23 mcg/actuation nasal Nasal Congestion spray,suspension (Flonase Allergy Relief) hydrocodone 10 mg-acetaminophen 1 tab PO TID PRN Pain 12/05/20 11/27/23 325 mg tablet sodium chloride-potassium chloride 1 tab PO QAM 02/16/21 11/27/23 287 mg-180 mg-15 mg tablet (Thermotabs) montelukast 10 mg tablet 10 mg PO QAM 01/14/22 11/27/23 alendronate 70 mg tablet 70 mg PO Q7D 11/08/22 11/27/23 denosumab 60 mg/mL subcutaneous See Rx Instructions .Route .COMPLEX 11/08/22 11/27/23 syringe (Prolia) donepezil 10 mg tablet 10 mg PO QAM 11/08/22 11/27/23 furosemide 20 mg tablet 20 mg PO QAM 11/08/22 11/27/23 lisinopril 10 mg tablet 10 mg PO BID 11/08/22 11/27/23 acyclovir 400 mg tablet 400 mg PO TID 07/08/23 11/27/23 amlodipine 10 mg tablet 10 mg PO DAILY 07/08/23 11/27/23 digoxin 125 mcg (0.125 mg) tablet 125 mcg PO QAM 07/08/23 11/27/23 empagliflozin 10 mg tablet 10 mg PO QAM 07/08/23 11/27/23 (Jardiance) levalbuterol tartrate 45 2 puff inhalation QID PRN 07/08/23 11/27/23 mcg/actuation aerosol inhaler Shortness Of Breath potassium chloride 20 mEq 20 meq PO .FIVE TIMES A DAY 07/08/23 11/27/23 tablet,extended release pravastatin 40 mg tablet 40 mg PO DAILY 07/08/23 11/27/23 tizanidine 2 mg tablet 2 mg PO BID 07/08/23 11/27/23 Previous Rx's Medication Instructions Recorded nitroglycerin 0.4 mg sublingual 0.4 mg sublingual Q5M PRN chest 09/09/19 tablet pain #30 tabs azithromycin 250 mg tablet See Rx Instructions PO .COMPLEX #6 07/18/23 (Zithromax) tabs cefdinir 300 mg capsule 300 mg PO BID #14 caps 07/18/23 ondansetron 4 mg disintegrating 4 mg PO Q6H PRN nausea and 08/16/23 tablet vomiting #14 tabs cephalexin 500 mg capsule 500 mg PO TID #15 caps 09/02/23 mupirocin 2 % topical ointment 1 applic topical DAILY #22 grams 09/19/23 amoxicillin 875 mg-potassium 1 tab PO BID #20 tabs 09/21/23 clavulanate 125 mg tablet honey 100 % topical paste 1 applic topical BID #103 mL 09/21/23 (MediHoney (honey)) clindamycin HCl 300 mg capsule 300 mg PO TID #30 caps 10/23/23 cefdinir 300 mg capsule 300 mg PO BID 7 days #14 caps 02/22/24 Allergies Allergy/AdvReac Type Severity Reaction Status Date / Time No Known Allergies Allergy Verified 02/22/24 19:21 Review of Systems 2 Narrative: Constitutional symptoms: Negative except as documented in HPI. Skin symptoms: Negative except as documented in HPI. Eye symptoms: Negative except as documented in HPI. ENMT symptoms: Negative except as documented in HPI. Respiratory symptoms: Negative except as documented in HPI. Cardiovascular symptoms: Negative except as documented in HPI. Gastrointestinal symptoms: Negative except as documented in HPI. Genitourinary symptoms: Negative except as documented in HPI. Musculoskeletal symptoms: Negative except as documented in HPI. Neurologic symptoms: Negative except as documented in HPI. Psychiatric symptoms: Negative except as documented in HPI. Endocrine symptoms: Negative except as documented in HPI. PFSH ED 2 PFSH: Medical History Dyspnea on exertion Peripheral edema Lymphedema Venous stasis dermatitis Hx of fracture of ankle Arthritis DJD (degenerative joint disease) Abdominal hernia Sliding hiatal hernia Hypothyroidism Insomnia Gastroenteritis DDD (degenerative disc disease) Restless legs Pulmonary nodule Diverticulitis Hx of fracture of tibia Dementia Age related osteoporosis Mixed incontinence History of colon polyps COVID Atrial fibrillation with RVR COPD (chronic obstructive pulmonary disease) Anal fissure Chronic back pain Lymphedema of both lower extremities Mixed hyperlipidemia Chronic systolic (congestive) heart failure Essential hypertension Surgical History History of amputation of toe Hx of blepharoplasty History of bladder surgery History of colonoscopy years ago History of hysterectomy Family History Sister Stroke CAD (coronary artery disease) GA @ 75 Hypertension Brother Cancer Father Cancer Social History Smoking and tobacco/nicotine status: tobacco/nicotine user, details unknown Second hand smoke exposure: No Alcohol intake: never Substance/Drug Use: never Adopted: No Caregiver/support person: No Lives independently: Yes Household members: spouse Housing: House Marital status: service: No Current occupational status: retired Do you think of yourself as: Straight/Heterosexual Current gender identity: Female Physical Exam 2 Narrative: EXAM NARRATIVE: General: Alert, no acute distress. Skin: Warm, dry. Head: Normocephalic, atraumatic. Neck: Supple, trachea midline. Eye: Extraocular movements are intact. Ears, nose, mouth and throat: mucosa moist. Cardiovascular: Regular, Normal peripheral perfusion. Respiratory: Lungs are clear to auscultation, respirations are non-labored, breath sounds are equal, Symmetrical chest wall expansion. Gastrointestinal: Soft, Nontender, Non distended Musculoskeletal: Normal ROM, no deformity. Neurological: Alert, No focal neurological deficit observed. Psychiatric: Cooperative, somewhat confused at times. Course 2 Vital Signs: Vital signs: Vital Signs Temperature 98.2 F 02/22/24 19:13 Pulse Rate 83 02/22/24 23:30 Respiratory Rate 16 02/22/24 22:59 Blood Pressure 140/90 02/22/24 23:30 Pulse Oximetry 97 02/22/24 23:30 Oxygen Delivery Me thod Room Air 02/22/24 22:59 MDM - General Adult Medical Decision Making Differential diagnosis for patient with chest pain includes but is not limited to and based on the above HPI, review of systems and physical exam: Pneumonia. unstable angina. angina. Acute coronary syndrome / GA. Pulmonary embolism. Costochondritis / musculoskeletal. Pleurisy. Pericarditis. Esophageal spasm. Pancreatis. Cholecystitis. Orders placed to evaluate differential diagnosis based on the above differential, HPI and physical exam EKG: Time 1929. Rate 96. Atrial fibrillation with controlled rate, No ST-T changes, no ectopy, This was reviewed and interpreted by myself the ER physician at 193 Chest x-ray: No acute process. No infiltrate. No pneumothorax. This was reviewed and interpreted by myself the emergency room physician. I also reviewed the radiology report. Lab Review: Laboratory results were reviewed and interpreted by myself the emergency room physician. No leukocytosis. Hemoglobin down a little bit at almost 11 from just over 13.4 months ago. BUN and creatinine are fairly stable at 17 and 1.1, just slightly over her baseline. Urinalysis shows 3+ leukocyte esterase but is nitrite negative. 21-50 reds and 11-20 whites with 4+ bacteria. Serial cardiac markers are negative her baseline is 30 CT of the abdomen pelvis: No acute abnormalities. This was reviewed and interpreted by myself the emergency room physician. I also reviewed the radiology report. I reviewed the patient's medical record. Reexamination: Patient has remained stable. She is a bit more alert than when she first arrived here and is alert and oriented. She states she wants to go home. Assessment and plan: Urinary tract infection Noncardiac chest pain ?IV cefepime in the emergency room. - Discharged home - Discussed findings and plan with patient. Answered any questions. - All laboratory values were reviewed and interpreted personally by myself, the ER physician - All imaging was reviewed and interpreted personally by myself, the ER physician. - Evaluation and treatment of this problem were appropriate in the emergency setting Lab Data 02/22/24 19:30 02/22/24 19:30 Radiology Impressions Chest X-Ray 02/22/24 19:16 IMPRESSION: 1. Borderline prominence of the cardiac silhouette. 2. Pulmonary atelectasis or acute infiltrates within left lower chest. 3. Chronic findings. Abdomen/Pelvis CT 02/22/24 21:52 IMPRESSION: No acute abdominopelvic abnormality. Laboratory Results WBC 7.28 10^3/uL (3.29-11.43) 02/22/24 19:30 RBC 3.99 10^6/uL (3.85-5.65) 02/22/24 19: Hgb 10.50 g/dL (11.27-16.99) L 02/22/24 19:30 Hct 33.6 % (36-47) L 02/22/24 19:30 MCV 84.2 fl (85-98) L 02/22/24 19:30 MCH 26.3 pg (27-33) L 02/22/24 19: MCHC 31.3 g/dL (30-55) 02/22/24 19:30 RDW 14.9 % (12.1-15.1) 02/22/24 19: Plt Count 280 10^3/cmm (157-399) 02/22/24 19: MPV 9.7 fL (7.4-10.4) 02/22/24 19:30 Neut % (Auto) 70.1 % 02/22/24 19: Lymph % (Auto) 15.5 % 02/22/24 19: [place] % (Auto) 11.1 % 02/22/24 19: Eos % (Auto) 2.5 % 02/22/24 19:30 Baso % (Auto) 0.5 % 02/22/24 19:30 Neut # (Auto) 5.10 10^3/uL (1.8-7.7) 02/22/24 19:30 Lymph # (Auto) 1.1 10^3/uL (0.8-4.8) 02/22/24 19:30 [place] # (Auto) 0.8 10^3/uL (0.2-0.9) 02/22/24 19:30 Eos # (Auto) 0.2 10^3/uL (0.0-0.8) 02/22/24 19:30 Baso # (Auto) 0.0 10^3/uL (0.0-0.1) 02/22/24 19:30 Nucleated RBC % (auto) 0 % 02/22/24 19:30 Nucleated RBCs # 0.0 /100WBC 02/22/24 19:30 Sodium 136 mmol/L (136-145) 02/22/24 19:30 Potassium 4.2 mmol/L (3.5-5.1) 02/22/24 19:30 Chloride 99 mmol/L (98-107) 02/22/24 19:30 Carbon Dioxide 29 mmol/L (22-29) 02/22/24 19:30 Anion Gap 12.2 (5-19) 02/22/24 19:30 BUN 17 mg/dL (8-23) 02/22/24 19:30 Creatinine 1.1 mg/dL (0.5-0.9) H 02/22/24 19:30 GFR Calculation Not Reportable 02/22/24 19:30 Glucose 103 mg/dL (65-115) 02/22/24 19:30 Calculated Osmolality 284 mOsm/kg (285-295) L 02/22/24 19:30 Lactic Acid 0.9 mmol/L (0.5-2.2) 02/22/24 21:53 Calcium 9.8 mg/dL (8.5-10.5) 02/22/24 19:30 Total Bilirubin 0.4 mg/dL (0.15-1.2) 02/22/24 19:30 AST 17 U/L (0-32) 02/22/24 19:30 ALT 7 U/L (0-33) 02/22/24 19:30 Alkaline Phosphatase 65 U/L (35-105) 02/22/24 19:30 Troponin T Baseline 31 ng/L (0-10) H 02/22/24 19:30 Troponin T 120 Minute 30.76 ng/L (0-10) H 02/22/24 21:53 Delta Troponin T -0.24 ABS# (0-10) L 02/22/24 21:53 Total Protein 6.9 g/dL (6.6-8.7) 02/22/24 19:30 Albumin 4.3 g/dL (3.5-5.2) 02/22/24 19:30 Globulin 2.6 g/dL (1.3-4.6) 02/22/24 19:30 Urine Color Yellow (Yellow) 02/22/24 20:46 Urine Appearance Cloudy (CLEAR) A 02/22/24 20:46 Urine pH 7.0 (5-7) 02/22/24 20:46 Ur Specific [place] 1.012 (1.005-1.030) 02/22/24 20:46 Urine Protein Negative (Negative) 02/22/24 20:46 Urine Glucose (UA) 3+ (Normal) H 02/22/24 20:46 Urine Ketones Negative (Negative) 02/22/24 20:46 Urine Blood 3+ (Negative) A 02/22/24 20:46 Urine Nitrate Negative (Negative) 02/22/24 20:46 Urine Bilirubin Negative (Negative) 02/22/24 20:46 Urine Urobilinogen 1.0 mg/dL (Negative) 02/22/24 20:46 Ur Leukocyte Esterase 3+ (Negative) A 02/22/24 20:46 Urine RBC 21-50 /hpf (0-2) H 02/22/24 20:46 Urine WBC 11-20 /hpf (0-5) H 02/22/24 20:46 Ur Squamous Epith Cells 0-5 /hpf (0-5) 02/22/24 20:46 Amorphous Sediment Not Reportable 02/22/24 20:46 Urine Bacteria 4+ /hpf (NONE) H 02/22/24 20:46 Hyaline Casts 1.65 /lpf 02/22/24 20:46 All radiology interpretation(s) finalized by discharge Discharge Plan Discharge Patient Disposition: Home Clinical Impression: Urinary tract infection, Non-cardiac chest pain Condition: Stable Prescriptions: New cefdinir 300 mg capsule 300 mg PO BID 7 Days Qty: 14 0RF No Action levothyroxine 88 mcg tablet 88 mcg PO QAM Eliquis 5 mg tablet 5 mg PO BID gabapentin 600 mg tablet 600 mg PO TID loratadine 10 mg tablet 10 mg PO DAILY PRN (Reason: Allergy Symptoms) Myrbetriq 50 mg tablet extended release 24 hr 50 mg PO QAM cephalexin 500 mg capsule 500 mg PO TID Qty: 15 0RF clindamycin HCl 300 mg capsule 300 mg PO TID Qty: 30 0RF amoxicillin-pot clavulanate 875-125 mg tablet 1 tab PO BID Qty: 20 0RF MediHoney (honey) 100 % paste 1 applic topical BID Qty: 103 0RF trazodone 50 mg Tablet 25 - 50 mg PO BEDTIME PRN (Reason: Sleep) duloxetine [Cymbalta] 60 mg Capsule,Delayed Release(Dr/Ec) 60 mg PO QAM cholecalciferol (vitamin D3) 1,250 mcg (50,000 unit) capsule 50,000 unit PO Q7D Rx Instructions: (ON SUNDAYS) hydrocodone-acetaminophen 10-325 mg tablet 1 tab PO TID PRN (Reason: Pain) Thermotabs 287-180-15 mg Tablet 1 tab PO QAM fluticasone propionate [Flonase Allergy Relief] 50 mcg/actuation [place],Suspension 1 - 2 spray INTRANASAL DAILY PRN (Reason: Nasal Congestion) nitroglycerin 0.4 mg tablet, sublingual 0.4 mg SUBLINGUAL Q5M PRN (Reason: chest pain) Qty: 30 0RF Rx Instructions: do not exceed 3 doses per episode tizanidine 2 mg tablet 2 mg PO BID pravastatin 40 mg tablet 40 mg PO DAILY acyclovir 400 mg tablet 400 mg PO TID amlodipine 10 mg tablet 10 mg PO DAILY levalbuterol tartrate 45 mcg/actuation HFA aerosol inhaler 2 puff INHALATION QID PRN (Reason: Shortness Of Breath) Jardiance 10 mg tablet 10 mg PO QAM digoxin 125 mcg (0.125 mg) tablet 125 mcg PO QAM potassium chloride 20 mEq tablet extended release 20 meq PO .FIVE TIMES A DAY mupirocin 2 % ointment 1 applic topical DAILY Qty: 22 0RF montelukast 10 mg Tablet 10 mg PO QAM donepezil 10 mg tablet 10 mg PO QAM alendronate 70 mg tablet 70 mg PO Q7D Rx Instructions: ON THURSDAY lisinopril 10 mg Tablet 10 mg PO BID furosemide 20 mg tablet 20 mg PO QAM Prolia 60 mg/mL syringe See Rx Instructions .ROUTE .COMPLEX Rx Instructions: INJECT CONTENTS OF ONE PEN UNDER SKIN EVERY SIX MONTHS cefdinir 300 mg capsule 300 mg PO BID Qty: 14 0RF Zithromax 250 mg tablet See Rx Instructions .ROUTE .COMPLEX Qty: 6 0RF Rx Instructions: For 250 mg dose pack: take 500 mg today (day 1), then 250 mg for 4 days (days 2-5) ondansetron 4 mg tablet,disintegrating 4 mg PO Q6H PRN (Reason: nausea and vomiting) Qty: 14 0RF Discharge Orders: Discharge ED (Routine); Ordered 02/22/24 Ordered By: Kenya Mcmullen Referrals: Alison Ramos MD [Primary Care Provider] - Discharge Diet: Usual diet Discharge Activity: Increase activity as tolerated Patient Instructions: Noncardiac Chest Pain (ED), Urinary Tract Infection in Older Adults (ED), Opioid Safety, Pain Management Activity Restrictions/Additional Instructions: Thank you for choosing [facility] for your healthcare needs today. Please realize this is an emergency room and that we are providing you with a medical screening exam and this may not be complete and all inclusive of all the testing and or work up that you may need to determine your ailment or severity of your illness. You have been screened and evaluated and felt safe for discharge. Health conditions do change or evolve sometimes and as such it is important that you follow up with your Primary Doctor to be re checked, 3-5 days is a general good time frame for follow up. 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
[2024-02-22 20:54] LABS: Bilirubin Urine Negative (Negative); Blood Urine 3+ (Negative); Glucose Urine UA 3+ (Normal); Ketones Urine Negative (Negative); Leukocyte Esterase Urine 3+ (Negative); Nitrate Urine Negative (Negative); Protein Urine Negative (Negative); Specific Gravity, Urine 1.012 (1.005-1.030); Urine Appearance Cloudy (CLEAR); Urine Color Yellow (Yellow)
[2024-02-22 20:59] LABS: Bacteria Urine 4+ /hpf; Hyaline Casts Urine 1.65 /lpf; RBC Urine 21-50 /hpf (0-2); Squamous Epithelial Cell Urine 0-5 /hpf (0-5)
[2024-02-22 21:33] LABS: Add Urine Culture? Yes; UA Slide Review UA Slide Review Perf
--- NOTE | 2024-02-22 21:52 | CTR_ITS ---
PROCEDURE INFORMATION: Exam: CT Abdomen And Pelvis Without Contrast Exam date and time: 02/22/2024 10:15 PM Age: 83 years old Clinical indication: Other: Hematuria; Additional info: Hematuria, R/O obstructive uropathy per hospitalist TECHNIQUE: Imaging protocol: Computed tomography of the abdomen and pelvis without contrast. Radiation optimization: All CT scans at this facility use at least one of these dose optimization techniques: automated exposure control; mA and/or kV adjustment per patient size (includes targeted exams where dose is matched to clinical indication); or iterative reconstruction. COMPARISON: CT abdomen pelvis w con* [id number] 08/16/2023 3:35 PM RADIATION DOSE METRICS: Total DLP (mGy-cm): 416.04 FINDINGS: Liver: Unremarkable. Gallbladder and biliary ducts: Unremarkable. Pancreas: Unremarkable. Spleen: Splenic granulomas. Adrenal glands: Unremarkable. Kidneys and ureters: Unremarkable. No nephrolithiasis or hydronephrosis. Stomach and bowel: Unremarkable. No mechanical obstruction. No mucosal thickening. Appendix: Unremarkable. Intraperitoneal space: No free air or free fluid. Vasculature: Moderate atherosclerotic changes of the aorta and its major branches. Lymph nodes: Unremarkable. No enlarged lymph nodes. Urinary bladder: Unremarkable. Reproductive: Hysterectomy. Bones/joints: Osteopenia. Multilevel spondylosis. Chronic T12 and L2 compression fractures. Soft tissues: Calcifications in the bilateral posterior gluteal soft tissues likely represent injection site granulomas. CT/CT abdomen pelvis wo con [id number] IMPRESSION: No acute abdominopelvic abnormality.
[2024-02-22 22:26] LABS: Troponin 5 2HR 30.76 ng/L (0-10)
[2024-02-22 22:28] LABS: Lactic Sepsis W/Reflex 0.9 mmol/L (0.5-2.2)
[2024-02-22 22:37] LABS: Troponin 5 2HR Delta -0.24 ABS# (0-10)
[2024-02-22] MEDS: cefepime 2,000 mg SDV 2000 MG IVP (22:57)
== END 2024-02-22 23:54 | disposition home or self-care (01) ==
PROVIDERS: Emergency Provider Emergency Medicine; PCP Internal Medicine
DX: N39.0 Urinary tract infection, site not specified (principal); R07.89 Other chest pain; Z79.01 Long term (current) use of anticoagulants; Z72.0 Tobacco use; J44.9 Chronic obstructive pulmonary disease, unspecified; I10 Essential (primary) hypertension; E78.5 Hyperlipidemia, unspecified
CPT/HCPCS: 36415; 71045; 74176; 80053; 81001; 83605; 84484; 85025; 87040; 87086; 93005; 96374; 99285; J0692

== ENCOUNTER 2024-04-09 15:50 | Emergency (ER) | payer MEDICARE, MEDICAID, SELFPAY ==
[2024-04-09 16:08] VITALS: BP 132/83; PULSE 92; RESP 17; TEMP 36.7; O2SAT 94
--- NOTE | 2024-04-09 16:24 | XRR_ITS ---
PROCEDURE INFORMATION: Exam: XR Chest Exam date and time: 04/09/2024 4:55 PM Age: 83 years old Clinical indication: Patient HX: Cough; Hot flashes TECHNIQUE: Imaging protocol: Radiologic exam of the chest. Views: 1 view. COMPARISON: CR XR chest 1V portable [id number] 02/22/2024 7:20 PM FINDINGS: Lungs: Unremarkable. No consolidation. Pleural spaces: Unremarkable. No pleural effusion. No pneumothorax. Heart/Mediastinum: Unremarkable. No cardiomegaly. Bones/joints: Unremarkable. XR/XR chest 1V portable [id number] IMPRESSION: No acute findings.
--- NOTE | 2024-04-09 16:36 | W.ED.GENADLT ---
HPI - General Adult General: Chief complaint: General Medical Stated complaint: hot flashes Time Seen by Provider: 04/09/24 16:24 Source: patient Mode of arrival: ambulatory Limitations: no limitations History of Present Illness: 83-year-old female who states that she has had cough congestion not feeling well over the last 3 to 4 days. States she has had a productive cough she denies any fevers denies any dysuria. Denies any worse improving factors. Associated symptoms: Reports malaise; Deny chest pain, dyspnea, headache(s), nausea, rash or vomiting Related Data Home Medications Medication Instructions Recorded Confirmed apixaban 5 mg tablet (Eliquis) 5 mg PO BID 04/06/19 11/27/23 gabapentin 600 mg tablet 600 mg PO TID 04/06/19 11/27/23 levothyroxine 88 mcg tablet 88 mcg PO QAM 04/06/19 11/27/23 loratadine 10 mg tablet 10 mg PO DAILY PRN Allergy Symptoms 04/06/19 11/27/23 mirabegron 50 mg tablet,extended 50 mg PO QAM 04/06/19 11/27/23 release 24 hr (Myrbetriq) cholecalciferol (vitamin D3) 1,250 50,000 unit PO Q7D 05/11/19 11/27/23 mcg (50,000 unit) capsule duloxetine 60 mg capsule,delayed 60 mg PO QAM 05/11/19 11/27/23 release (Cymbalta) trazodone 50 mg tablet 25 - 50 mg PO BEDTIME PRN Sleep 05/11/19 11/27/23 fluticasone propionate 50 1 - 2 spray intranasal DAILY PRN 09/09/19 11/27/23 mcg/actuation nasal Nasal Congestion spray,suspension (Flonase Allergy Relief) hydrocodone 10 mg-acetaminophen 1 tab PO TID PRN Pain 12/05/20 11/27/23 325 mg tablet sodium chloride-potassium chloride 1 tab PO QAM 02/16/21 11/27/23 287 mg-180 mg-15 mg tablet (Thermotabs) montelukast 10 mg tablet 10 mg PO QAM 01/14/22 11/27/23 alendronate 70 mg tablet 70 mg PO Q7D 11/08/22 11/27/23 denosumab 60 mg/mL subcutaneous See Rx Instructions .Route .COMPLEX 11/08/22 11/27/23 syringe (Prolia) donepezil 10 mg tablet 10 mg PO QAM 11/08/22 11/27/23 furosemide 20 mg tablet 20 mg PO QAM 11/08/22 11/27/23 lisinopril 10 mg tablet 10 mg PO BID 11/08/22 11/27/23 acyclovir 400 mg tablet 400 mg PO TID 07/08/23 11/27/23 amlodipine 10 mg tablet 10 mg PO DAILY 07/08/23 11/27/23 digoxin 125 mcg (0.125 mg) tablet 125 mcg PO QAM 07/08/23 11/27/23 empagliflozin 10 mg tablet 10 mg PO QAM 07/08/23 11/27/23 (Jardiance) levalbuterol tartrate 45 2 puff inhalation QID PRN 07/08/23 11/27/23 mcg/actuation aerosol inhaler Shortness Of Breath potassium chloride 20 mEq 20 meq PO .FIVE TIMES A DAY 07/08/23 11/27/23 tablet,extended release pravastatin 40 mg tablet 40 mg PO DAILY 07/08/23 11/27/23 tizanidine 2 mg tablet 2 mg PO BID 07/08/23 11/27/23 Previous Rx's Medication Instructions Recorded nitroglycerin 0.4 mg sublingual 0.4 mg sublingual Q5M PRN chest 09/09/19 tablet pain #30 tabs azithromycin 250 mg tablet See Rx Instructions PO .COMPLEX #6 07/18/23 (Zithromax) tabs cefdinir 300 mg capsule 300 mg PO BID #14 caps 07/18/23 ondansetron 4 mg disintegrating 4 mg PO Q6H PRN nausea and 08/16/23 tablet vomiting #14 tabs cephalexin 500 mg capsule 500 mg PO TID #15 caps 09/02/23 mupirocin 2 % topical ointment 1 applic topical DAILY #22 grams 09/19/23 amoxicillin 875 mg-potassium 1 tab PO BID #20 tabs 09/21/23 clavulanate 125 mg tablet honey 100 % topical paste 1 applic topical BID #103 mL 09/21/23 (MediHoney (honey)) clindamycin HCl 300 mg capsule 300 mg PO TID #30 caps 10/23/23 Allergies Allergy/AdvReac Type Severity Reaction Status Date / Time No Known Allergies Allergy Verified 02/22/24 19:21 Review of Systems Const: Reports: fatigue and malaise; Denies: fever(s), chills, body aches or change in appetite ENMT: Denies: throat pain or dental pain Card: Denies: chest pain Resp: Reports: productive cough; Denies: dyspnea GI: Denies: abdominal pain, nausea, vomiting or diarrhea : Denies: dysuria Musc: Denies: neck pain or back pain Skin/Breast: Denies: rash Neuro: Denies: headache(s) PFSH ED PFSH: Medical History Dyspnea on exertion Peripheral edema Lymphedema Venous stasis dermatitis Hx of fracture of ankle Arthritis DJD (degenerative joint disease) Abdominal hernia Sliding hiatal hernia Hypothyroidism Insomnia Gastroenteritis DDD (degenerative disc disease) Restless legs Pulmonary nodule Diverticulitis Hx of fracture of tibia Dementia Age related osteoporosis Mixed incontinence History of colon polyps COVID Atrial fibrillation with RVR COPD (chronic obstructive pulmonary disease) Anal fissure Chronic back pain Lymphedema of both lower extremities Mixed hyperlipidemia Chronic systolic (congestive) heart failure Essential hypertension Surgical History History of amputation of toe Hx of blepharoplasty History of bladder surgery History of colonoscopy years ago History of hysterectomy Family History Sister Stroke CAD (coronary artery disease) [place] @ 75 Hypertension Brother Cancer Father Cancer Social History Smoking and tobacco/nicotine status: tobacco/nicotine user, details unknown Second hand smoke exposure: No Alcohol intake: never Substance/Drug Use: never Adopted: No Caregiver/support person: No Lives independently: Yes Household members: spouse Housing: House Marital status: service: No Current occupational status: retired Do you think of yourself as: Straight/Heterosexual Current gender identity: Female Physical Exam Const: COMMON NORMALS: no acute distress, patient oriented x3 and healthy appearing HENMT: COMMON NORMALS: normocephalic and atraumatic HEAD & SCALP: normocephalic and atraumatic Eye: COMMON NORMALS: Equal, round and reactive pupils present and EOMs intact bilaterally PUPIL: Yes Equal, round and reactive pupils present Neck/C-Spine: COMMON NORMALS: full ROM and supple Chest: COMMONS NORMALS: normal inspection of the chest and normal palpation of entire chest wall Resp: COMMON NORMALS: normal respiratory effort, No retractions, No use of accessory muscles and clear to auscultation bilaterally AUSCULTATION: clear to auscultation bilaterally Cardio: COMMON NORMALS: regular rate, regular rhythm and No murmurs present (Cardio) RATE: regular rate RHYTHM: regular rhythm GI: COMMON NORMALS: Normal to inspection, nondistended, normoactive bowel sounds present, Soft to palpation, non-tender and no masses PALPATION: Yes Soft to palpation Extremity: COMMON NORMALS: normal to inspection and full ROM Neuro: COMMON NORMALS: patient oriented x3, moves all extremities and no focal motor deficits Psych: COMMON NORMALS: mental status grossly normal, Normal thought process present and cooperative THOUGHT PROCESS: Normal thought process present Skin: COMMON NORMALS: no rashes or lesions noted and no wounds GENERAL SKIN EXAM: no rashes or lesions noted Course Vital Signs: Vital signs: Vital Signs Temperature 98.0 F 04/09/24 16:08 Pulse Rate 92 04/09/24 16:08 Respiratory Rate 17 04/09/24 16:08 Blood Pressure 132/83 04/09/24 16:08 Pulse Oximetry 94 04/09/24 16:08 Oxygen Delivery Me thod Room Air 04/09/24 16:08 MDM - General Adult Medical Decision Making Patient presents here with cough congestion likely upper respiratory infection imaging blood work here is negative no signs of any bacterial illness she stable for discharge follow-up with PCP return if worsening. Medical Records I reviewed the patient's medical records. Lab Data I reviewed the patient's lab results. 04/09/24 16:40 04/09/24 16:40 Laboratory Results WBC 9.92 10^3/uL (3.29-11.43) 04/09/24 16:40 RBC 4.70 10^6/uL (3.85-5.65) 04/09/24 16:40 Hgb 11.60 g/dL (11.27-16.99) 04/09/24 16:40 Hct 38.9 % (36-47) 04/09/24 16:40 MCV 82.8 fl (85-98) L 04/09/24 16:40 MCH 24.7 pg (27-33) L 04/09/24 16:40 MCHC 29.8 g/dL (30-55) L 04/09/24 16:40 RDW 15.1 % (12.1-15.1) 04/09/24 16:40 Plt Count 305 10^3/cmm (157-399) 04/09/24 16:40 MPV 9.6 fL (7.4-10.4) 04/09/24 16:40 Neut % (Auto) 81.0 % 04/09/24 16:40 Lymph % (Auto) 10.2 % 04/09/24 16:40 [place] % (Auto) 7.4 % 04/09/24 16:40 Eos % (Auto) 0.8 % 04/09/24 16:40 Baso % (Auto) 0.4 % 04/09/24 16:40 Neut # (Auto) 8.04 10^3/uL (1.8-7.7) H 04/09/24 16:40 Lymph # (Auto) 1.0 10^3/uL (0.8-4.8) 04/09/24 16:40 [place] # (Auto) 0.7 10^3/uL (0.2-0.9) 04/09/24 16:40 Eos # (Auto) 0.1 10^3/uL (0.0-0.8) 04/09/24 16:40 Baso # (Auto) 0.0 10^3/uL (0.0-0.1) 04/09/24 16:40 Nucleated RBC % (auto) 0 % 04/09/24 16:40 Nucleated RBCs # 0.0 /100WBC 04/09/24 16:40 Sodium 137 mmol/L (136-145) 04/09/24 16:40 Potassium 4.3 mmol/L (3.5-5.1) 04/09/24 16:40 Chloride 101 mmol/L (98-107) 04/09/24 16:40 Carbon Dioxide 26 mmol/L (22-29) 04/09/24 16:40 Anion Gap 14.3 (5-19) 04/09/24 16:40 BUN 14 mg/dL (8-23) 04/09/24 16:40 Creatinine 1.0 mg/dL (0.5-0.9) H 04/09/24 16:40 GFR Calculation Not Reportable 04/09/24 16:40 Glucose 122 mg/dL (65-115) H 04/09/24 16:40 Calculated Osmolality 286 mOsm/kg (285-295) 04/09/24 16:40 Calcium 9.4 mg/dL (8.5-10.5) 04/09/24 16:40 Total Bilirubin 0.5 mg/dL (0.15-1.2) 04/09/24 16:40 AST 17 U/L (0-32) 04/09/24 16:40 ALT 6 U/L (0-33) 04/09/24 16:40 Alkaline Phosphatase 77 U/L (35-105) 04/09/24 16:40 Total Protein 7.9 g/dL (6.6-8.7) 04/09/24 16:40 Albumin 4.4 g/dL (3.5-5.2) 04/09/24 16:40 Globulin 3.5 g/dL (1.3-4.6) 04/09/24 16:40 Lipase 32 U/L (13-60) 04/09/24 16:40 Urine Color Yellow (Yellow) 04/09/24 17:47 Urine Appearance Clear (CLEAR) 04/09/24 17:47 Urine pH 5.0 (5-7) 04/09/24 17:47 Ur Specific [place] 1.017 (1.005-1.030) 04/09/24 17:47 Urine Protein Negative (Negative) 04/09/24 17:47 Urine Glucose (UA) 3+ (Normal) H 04/09/24 17:47 Urine Ketones Negative (Negative) 04/09/24 17:47 Urine Blood Negative (Negative) 04/09/24 17:47 Urine Nitrate Negative (Negative) 04/09/24 17:47 Urine Bilirubin Negative (Negative) 04/09/24 17:47 Urine Urobilinogen 0.2 mg/dL (Negative) 04/09/24 17:47 Ur Leukocyte Esterase 2+ (Negative) A 04/09/24 17:47 Urine RBC 0-2 /hpf (0-2) 04/09/24 17:47 Urine WBC 21-50 /hpf (0-5) H 04/09/24 17:47 Ur Squamous Epith Cells 0-5 /hpf (0-5) 04/09/24 17:47 Amorphous Sediment Not Reportable 04/09/24 17:47 Urine Bacteria 1+ /hpf (NONE) H 04/09/24 17:47 Hyaline Casts 1.65 /lpf 04/09/24 17:47 All radiology interpretation(s) finalized by discharge Discharge Plan Discharge Patient Disposition: Home Clinical Impression: Upper respiratory infection Qualifiers: URI type: unspecified URI Qualified Code(s): J06.9 - Acute upper respiratory infection, unspecified Condition: Stable Prescriptions: No Action levothyroxine 88 mcg tablet 88 mcg PO QAM Eliquis 5 mg tablet 5 mg PO BID gabapentin 600 mg tablet 600 mg PO TID loratadine 10 mg tablet 10 mg PO DAILY PRN (Reason: Allergy Symptoms) Myrbetriq 50 mg tablet extended release 24 hr 50 mg PO QAM cephalexin 500 mg capsule 500 mg PO TID Qty: 15 0RF clindamycin HCl 300 mg capsule 300 mg PO TID Qty: 30 0RF amoxicillin-pot clavulanate 875-125 mg tablet 1 tab PO BID Qty: 20 0RF MediHoney (honey) 100 % paste 1 applic topical BID Qty: 103 0RF trazodone 50 mg Tablet 25 - 50 mg PO BEDTIME PRN (Reason: Sleep) duloxetine [Cymbalta] 60 mg Capsule,Delayed Release(Dr/Ec) 60 mg PO QAM cholecalciferol (vitamin D3) 1,250 mcg (50,000 unit) capsule 50,000 unit PO Q7D Rx Instructions: (ON SUNDAYS) hydrocodone-acetaminophen 10-325 mg tablet 1 tab PO TID PRN (Reason: Pain) Thermotabs 287-180-15 mg Tablet 1 tab PO QAM fluticasone propionate [Flonase Allergy Relief] 50 mcg/actuation [place],Suspension 1 - 2 spray INTRANASAL DAILY PRN (Reason: Nasal Congestion) nitroglycerin 0.4 mg tablet, sublingual 0.4 mg SUBLINGUAL Q5M PRN (Reason: chest pain) Qty: 30 0RF Rx Instructions: do not exceed 3 doses per episode tizanidine 2 mg tablet 2 mg PO BID pravastatin 40 mg tablet 40 mg PO DAILY acyclovir 400 mg tablet 400 mg PO TID amlodipine 10 mg tablet 10 mg PO DAILY levalbuterol tartrate 45 mcg/actuation HFA aerosol inhaler 2 puff INHALATION QID PRN (Reason: Shortness Of Breath) Jardiance 10 mg tablet 10 mg PO QAM digoxin 125 mcg (0.125 mg) tablet 125 mcg PO QAM potassium chloride 20 mEq tablet extended release 20 meq PO .FIVE TIMES A DAY mupirocin 2 % ointment 1 applic topical DAILY Qty: 22 0RF montelukast 10 mg Tablet 10 mg PO QAM donepezil 10 mg tablet 10 mg PO QAM alendronate 70 mg tablet 70 mg PO Q7D Rx Instructions: ON THURSDAY lisinopril 10 mg Tablet 10 mg PO BID furosemide 20 mg tablet 20 mg PO QAM Prolia 60 mg/mL syringe See Rx Instructions .ROUTE .COMPLEX Rx Instructions: INJECT CONTENTS OF ONE PEN UNDER SKIN EVERY SIX MONTHS cefdinir 300 mg capsule 300 mg PO BID Qty: 14 0RF Zithromax 250 mg tablet See Rx Instructions .ROUTE .COMPLEX Qty: 6 0RF Rx Instructions: For 250 mg dose pack: take 500 mg today (day 1), then 250 mg for 4 days (days 2-5) ondansetron 4 mg tablet,disintegrating 4 mg PO Q6H PRN (Reason: nausea and vomiting) Qty: 14 0RF Discharge Orders: Discharge ED (Routine); Ordered 04/09/24 Ordered By: Lina Richards Referrals: Alison Ramos MD [Primary Care Provider] - Discharge Diet: Advance as tolerated Discharge Activity: Resume usual activity Patient Instructions: Upper Respiratory Infection (ED) Coding Level of Care Code ED 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
[2024-04-09 16:59] LABS: Basophils % 0.4 %; Eosinophils # 0.1 10^3/uL (0.0-0.8); Eosinophils % 0.8 %; Hematocrit 38.9 % (36-47); Lymphocytes % 10.2 %; Mean Corpuscular HGB Conc 29.8 g/dL (30-55); Mean Corpuscular Hemoglobin 24.7 pg (27-33); Mean Corpuscular Volume 82.8 fl (85-98); Mean Platelet Volume 9.6 fL (7.4-10.4); Monocytes # 0.7 10^3/uL (0.2-0.9); Monocytes % 7.4 %; Neutrophils # 8.04 10^3/uL (1.8-7.7); Nucleated Red Blood Cells % 0 %; Platelet Count 305 10^3/cmm (157-399); Red Cell Distribution Width 15.1 % (12.1-15.1); White Blood Count 9.92 10^3/uL (3.29-11.43)
[2024-04-09] MEDS: ondansetron 2 mg/ML SDV 2 mL 4 MG IVP (17:07)
[2024-04-09 17:21] LABS: Alanine Aminotransferase 6 U/L (0-33); Albumin Level 4.4 g/dL (3.5-5.2); Alkaline Phosphatase 77 U/L (35-105); Anion Gap 14.3 (5-19); Aspartate Amino Transferase 17 U/L (0-32); Blood Urea Nitrogen 14 mg/dL (8-23); Calcium 9.4 mg/dL (8.5-10.5); Carbon Dioxide 26 mmol/L (22-29); Chloride 101 mmol/L (98-107); Creatinine Clr Calc Pharmacy 42.7777; Globulin 3.5 g/dL (1.3-4.6); Glucose 122 mg/dL (65-115); Lipase 32 U/L (13-60); Osmolality Calculated 286 mOsm/kg (285-295); Potassium 4.3 mmol/L (3.5-5.1); Sodium 137 mmol/L (136-145); Total Bilirubin 0.5 mg/dL (0.15-1.2); Total Protein 7.9 g/dL (6.6-8.7)
[2024-04-09 17:56] LABS: Bilirubin Urine Negative (Negative); Blood Urine Negative (Negative); Glucose Urine UA 3+ (Normal); Ketones Urine Negative (Negative); Leukocyte Esterase Urine 2+ (Negative); Nitrate Urine Negative (Negative); Protein Urine Negative (Negative); Specific Gravity, Urine 1.017 (1.005-1.030); Urine Appearance Clear (CLEAR); Urine Color Yellow (Yellow); Urobilinogen Urine 0.2 mg/dL (Negative)
[2024-04-09 18:01] LABS: Add Urine Microscopic? YES; Bacteria Urine 1+ /hpf; Hyaline Casts Urine 1.65 /lpf; RBC Urine 0-2 /hpf (0-2); Squamous Epithelial Cell Urine 0-5 /hpf (0-5); WBC Urine 21-50 /hpf (0-5)
[2024-04-09 18:06] LABS: Add Urine Culture? Yes
[2024-04-09 18:29] LABS: Adenovirus Not Detected (NOT DETECT); Chlamydia Pneumoniae Not Detected (NOT DETECT); Coronavirus 229E,HKU1,NL63,OC4 Not Detected (NOT DETECT); Human Metapneumovirus Not Detected (NOT DETECT); Human Rhinovirus/Enterovirus Not Detected (NOT DETECT); Influenza A Not Detected (NOT DETECT); Influenza A H1 Not Detected (NOT DETECT); Influenza A H1-2009 Not Detected (NOT DETECT); Influenza A H3 Not Detected (NOT DETECT); Influenza B Not Detected (NOT DETECT); Mycoplasma Pneumoniae Not Detected (NOT DETECT); Parainfluenza Virus Type 1 Not Detected (NOT DETECT); Parainfluenza Virus Type 2 Not Detected (NOT DETECT); Parainfluenza Virus Type 3 Not Detected (NOT DETECT); Parainfluenza Virus Type 4 Not Detected (NOT DETECT); Respiratory Syncytial Virus A Not Detected (NOT DETECT); Respiratory Syncytial Virus B Not Detected (NOT DETECT); SARS-COV-2 Not Detected (NOT DETECT)
== END 2024-04-09 18:28 | disposition home or self-care (01) ==
PROVIDERS: Emergency Provider Emergency Medicine; PCP Internal Medicine
DX: J06.9 Acute upper respiratory infection, unspecified (principal); Z79.02 Long term (current) use of antithrombotics/antiplatelets; J44.9 Chronic obstructive pulmonary disease, unspecified; E78.2 Mixed hyperlipidemia; I11.0 Hypertensive heart disease with heart failure; I50.22 Chronic systolic (congestive) heart failure
CPT/HCPCS: 36415; 71045; 80053; 81001; 83690; 85025; 87086; 87486; 87581; 87633; 96374; 99284; J2405

== ENCOUNTER 2024-10-17 20:23 | Emergency (ER) | payer MEDICARE, MEDICAID, SELFPAY ==
[2024-10-17 20:33] VITALS: BP 134/74; PULSE 96; RESP 17; TEMP 37.5; O2SAT 93; BMI 28.2
--- NOTE | 2024-10-17 20:34 | W.ED.ABDPA2 ---
HPI - Abdominal Pain General: Chief Complaint: Abdominal Pain Stated Complaint: abdomen and back pain Time Seen by Provider: 10/17/24 20:23 History of Present Illness: Patient is a 83-year-old female with A-fib, on apixaban, digoxin, recent antibiotics, presents to ED with central abdominal pain, nausea, and loose stools. This started this morning. She had stools she required cleaning herself up with times at least 2 times. Patient is very hard of hearing. History was received via EMS by patient's that is on his way. She denies any shortness of breath. She does admit to recent antibiotics. Denies history of C. difficile. Denies sick contact/exposure. Associated Symptoms: Reports change in stool character, diarrhea, nausea and vomiting; Denies bloating, chills and fever(s) Related Data Home Medications ?Medication ?Instructions ?Recorded ?Confirmed apixaban 5 mg tablet (Eliquis) 5 mg PO BID 04/06/19 11/27/23 gabapentin 600 mg tablet 600 mg PO TID 04/06/19 11/27/23 levothyroxine 88 mcg tablet 88 mcg PO QAM 04/06/19 11/27/23 loratadine 10 mg tablet 10 mg PO DAILY PRN Allergy Symptoms 04/06/19 11/27/23 mirabegron 50 mg tablet,extended 50 mg PO QAM 04/06/19 11/27/23 release 24 hr (Myrbetriq) cholecalciferol (vitamin D3) 1,250 50,000 unit PO Q7D 05/11/19 11/27/23 mcg (50,000 unit) capsule duloxetine 60 mg capsule,delayed 60 mg PO QAM 05/11/19 11/27/23 release (Cymbalta) trazodone 50 mg tablet 25 - 50 mg PO BEDTIME PRN Sleep 05/11/19 11/27/23 fluticasone propionate 50 1 - 2 spray intranasal DAILY PRN 09/09/19 11/27/23 mcg/actuation nasal Nasal Congestion spray,suspension (Flonase Allergy Relief) hydrocodone 10 mg-acetaminophen 1 tab PO TID PRN Pain 12/05/20 11/27/23 325 mg tablet sodium chloride-potassium chloride 1 tab PO QAM 02/16/21 11/27/23 287 mg-180 mg-15 mg tablet (Thermotabs) montelukast 10 mg tablet 10 mg PO QAM 01/14/22 11/27/23 alendronate 70 mg tablet 70 mg PO Q7D 11/08/22 11/27/23 denosumab 60 mg/mL subcutaneous See Rx Instructions .Route .COMPLEX 11/08/22 11/27/23 syringe (Prolia) donepezil 10 mg tablet 10 mg PO QAM 11/08/22 11/27/23 furosemide 20 mg tablet 20 mg PO QAM 11/08/22 11/27/23 lisinopril 10 mg tablet 10 mg PO BID 11/08/22 11/27/23 acyclovir 400 mg tablet 400 mg PO TID 07/08/23 11/27/23 amlodipine 10 mg tablet 10 mg PO DAILY 07/08/23 11/27/23 digoxin 125 mcg (0.125 mg) tablet 125 mcg PO QAM 07/08/23 11/27/23 empagliflozin 10 mg tablet 10 mg PO QAM 07/08/23 11/27/23 (Jardiance) levalbuterol tartrate 45 2 puff inhalation QID PRN 07/08/23 11/27/23 mcg/actuation aerosol inhaler Shortness Of Breath potassium chloride 20 mEq 20 meq PO .FIVE TIMES A DAY 07/08/23 11/27/23 tablet,extended release pravastatin 40 mg tablet 40 mg PO DAILY 07/08/23 11/27/23 tizanidine 2 mg tablet 2 mg PO BID 07/08/23 11/27/23 Previous Rx's ?Medication ?Instructions ?Recorded nitroglycerin 0.4 mg sublingual 0.4 mg sublingual Q5M PRN chest 09/09/19 tablet pain #30 tabs azithromycin 250 mg tablet See Rx Instructions PO .COMPLEX #6 07/18/23 (Zithromax) tabs cefdinir 300 mg capsule 300 mg PO BID #14 caps 07/18/23 ondansetron 4 mg disintegrating 4 mg PO Q6H PRN nausea and 08/16/23 tablet vomiting #14 tabs cephalexin 500 mg capsule 500 mg PO TID #15 caps 09/02/23 mupirocin 2 % topical ointment 1 applic topical DAILY #22 grams 09/19/23 amoxicillin 875 mg-potassium 1 tab PO BID #20 tabs 09/21/23 clavulanate 125 mg tablet honey 100 % topical paste 1 applic topical BID #103 mL 09/21/23 (MediHoney (honey)) clindamycin HCl 300 mg capsule 300 mg PO TID #30 caps 10/23/23 cefdinir 300 mg capsule 300 mg PO BID 10 days #20 caps 10/18/24 pantoprazole 40 mg tablet,delayed 40 mg PO Q12H 30 days #60 tabs 10/18/24 release sucralfate 1 gram tablet (Carafate) 1 g PO TID 4 weeks #84 tabs 10/18/24 Allergies Allergy/AdvReac Type Severity Reaction Status Date / Time No Known Allergies Allergy Verified 02/22/24 19:21 Review of Systems General: Reports: 10 or more systems reviewed and unremarkable except in HPI and below Const: Denies: fever(s) or chills Eyes: Denies: change in vision or blurry vision Card: Denies: chest pain or palpitations Resp: Denies: dyspnea or non-productive cough GI: Reports: abdominal pain, nausea, vomiting, diarrhea and change in stool character; Denies: bloating : Denies: flank pain or difficulty voiding Musc: Denies: neck pain or back pain Skin/Breast: Denies: rash or pruritus Neuro: Denies: headache(s) or numbness in extremities Psych: Denies: anxiety or depression Endo: Denies: polyuria or polydipsia PFSH ED PFSH: Medical History (Updated 10/18/24 @ 00:09 by ROD Canas) Dyspnea on exertion Peripheral edema Lymphedema Venous stasis dermatitis Hx of fracture of ankle Arthritis DJD (degenerative joint disease) Abdominal hernia Sliding hiatal hernia Hypothyroidism Insomnia Gastroenteritis DDD (degenerative disc disease) Restless legs Pulmonary nodule Diverticulitis Hx of fracture of tibia Dementia Age related osteoporosis Mixed incontinence History of colon polyps COVID Atrial fibrillation with RVR COPD (chronic obstructive pulmonary disease) Anal fissure Chronic back pain Lymphedema of both lower extremities Mixed hyperlipidemia Chronic systolic (congestive) heart failure Essential hypertension Surgical History History of amputation of toe Hx of blepharoplasty History of bladder surgery History of colonoscopy years ago History of hysterectomy Family History Sister Stroke CAD (coronary artery disease) [place] @ 75 Hypertension Brother Cancer Father Cancer Social History Smoking and tobacco/nicotine status: tobacco/nicotine user, details unknown Second hand smoke exposure: No Alcohol intake: never Substance/Drug Use: never Adopted: No Caregiver/support person: No Lives independently: Yes Household members: spouse Housing: House Marital status: service: No Current occupational status: retired Do you think of yourself as: Straight/Heterosexual Current gender identity: Female Physical Exam Const: COMMON NORMALS: no acute distress, average body habitus and patient oriented x3 HENMT: COMMON NORMALS: normocephalic and atraumatic HEAD & SCALP: normocephalic and atraumatic Neck/C-Spine: COMMON NORMALS: full ROM and no lymphadenopathy Lymph: LYMPHATIC: no lymphadenopathy noted Chest: COMMONS NORMALS: normal inspection of the chest and normal palpation of entire chest wall Resp: COMMON NORMALS: normal respiratory effort and clear to auscultation bilaterally AUSCULTATION: clear to auscultation bilaterally Cardio: COMMON NORMALS: regular rate and regular rhythm RATE: regular rate RHYTHM: regular rhythm GI: COMMON NORMALS: Normal to inspection, nondistended, normoactive bowel sounds present and Soft to palpation PALPATION: Yes Soft to palpation : COMMON NORMALS: Yes no CVA tenderness BLADDER/KIDNEY EXAM: Yes no CVA tenderness Back/Pelvis: COMMON NORMALS: no CVA tenderness Extremity: COMMON NORMALS: normal to inspection, full ROM and capillary refill normal Neuro: COMMON NORMALS: patient oriented x3, CN's II-XII intact bilaterally and moves all extremities Psych: COMMON NORMALS: mental status grossly normal and Normal thought process present THOUGHT PROCESS: Normal thought process present Skin: COMMON NORMALS: no rashes or lesions noted and no wounds GENERAL SKIN EXAM: no rashes or lesions noted Course Vital Signs: Vital signs: Vital Signs Temperature 99.5 F 10/17/24 20:33 Pulse Rate 88 10/18/24 00:45 Respiratory Rate 18 10/18/24 00:45 Blood Pressure 155/97 10/18/24 00:45 Pulse Oximetry 90 10/18/24 00:45 Oxygen Delivery Me thod Room Air 10/17/24 20:33 MDM - Abdominal Pain Medical Decision Making Patient is 83-year-old female presents ED with abdominal pain, and diarrhea. She has A-fib, on apixaban, with hemoglobin of 8, previously 11. Denied any dark tarry stools, however medic stated noted a darker stool today. Will obtain a CT of abdomen pelvis. Lactic acid is not elevated, and most likely not ischemic pathology in nature. Plan is to give pantoprazole 80 mg, and Carafate, repeat hemoglobin hematocrit after IV fluids. finally arrived here after a flat tire and going to the wrong hospital. I have went over the entire course of care with the , and the plan, and he states understanding. All of his questions answered to his satisfaction. Lab Data 10/17/24 22:55 10/17/24 20:49 Labs/Radiology: Radiology Impressions Abdomen/Pelvis CT 10/17/24 22:51 IMPRESSION: No acute process in the abdomen or pelvis. Laboratory Results WBC 10.89 10^3/uL (3.29-11.43) 10/17/24 20:49 RBC 3.79 10^6/uL (3.85-5.65) L 10/17/24 20:49 Hgb 8.10 g/dL (11.27-16.99) L 10/17/24 22:55 Hct 29.5 % (36-47) L 10/17/24 22:55 MCV 74.4 fl (85-98) L 10/17/24 20:49 MCH 21.1 pg (27-33) L 10/17/24 20:49 MCHC 28.4 g/dL (30-55) L 10/17/24 20:49 RDW 19.6 % (12.1-15.1) H 10/17/24 20:49 Plt Count 308 10^3/cmm (157-399) 10/17/24 20:49 MPV 9.3 fL (7.4-10.4) 10/17/24 20:49 Neut % (Auto) 80.0 % 10/17/24 20:49 Lymph % (Auto) 6.8 % 10/17/24 20:49 Starr % (Auto) 10.7 % 10/17/24 20:49 Eos % (Auto) 1.8 % 10/17/24 20:49 Baso % (Auto) 0.3 % 10/17/24 20:49 Neut # (Auto) 8.71 10^3/uL (1.8-7.7) H 10/17/24 20:49 Lymph # (Auto) 0.7 10^3/uL (0.8-4.8) L 10/17/24 20:49 Starr # (Auto) 1.2 10^3/uL (0.2-0.9) H 10/17/24 20:49 Eos # (Auto) 0.2 10^3/uL (0.0-0.8) 10/17/24 20:49 Baso # (Auto) 0.0 10^3/uL (0.0-0.1) 10/17/24 20:49 Nucleated RBC % (auto) 0 % 10/17/24 20:49 Nucleated RBCs # 0.0 /100WBC 10/17/24 20:49 Sodium 136 mmol/L (136-145) 10/17/24 20:49 Potassium 4.1 mmol/L (3.5-5.1) 10/17/24 20:49 Chloride 98 mmol/L (98-107) 10/17/24 20:49 Carbon Dioxide 25 mmol/L (22-29) 10/17/24 20:49 Anion Gap 17.1 (5-19) 10/17/24 20:49 BUN 7 mg/dL (8-23) L 10/17/24 20:49 Creatinine 0.9 mg/dL (0.5-0.9) 10/17/24 20:49 GFR Calculation Not Reportable 10/17/24 20:49 Glucose 95 mg/dL (65-115) 10/17/24 20:49 Calculated Osmolality 280 mOsm/kg (285-295) L 10/17/24 20:49 Lactic Acid 1.4 mmol/L (0.5-2.2) 10/17/24 20:49 Calcium 9.1 mg/dL (8.5-10.5) 10/17/24 20:49 Magnesium 1.9 mg/dL (1.7-2.3) 10/17/24 20:49 Total Bilirubin 0.5 mg/dL (0.15-1.2) 10/17/24 20:49 AST 20 U/L (0-32) 10/17/24 20:49 ALT 6 U/L (0-33) 10/17/24 20:49 Alkaline Phosphatase 76 U/L (35-105) 10/17/24 20:49 Troponin T Baseline 32 ng/L (0-10) H 10/17/24 20:49 Troponin T 120 Minute 31.80 ng/L (0-10) H 10/17/24 22:55 Delta Troponin T -0.20 ABS# (0-10) L 10/17/24 22:55 NT-Pro-B Natriuret Pep 1286 pg/mL (0-450) H 10/17/24 20:49 Total Protein 6.8 g/dL (6.6-8.7) 10/17/24 20:49 Albumin 4.1 g/dL (3.5-5.2) 10/17/24 20:49 Globulin 2.7 g/dL (1.3-4.6) 10/17/24 20:49 Lipase 99 U/L (13-60) H 10/17/24 20:49 Urine Color Yellow (Yellow) 10/17/24 21:47 Urine Appearance Clear (CLEAR) 10/17/24 21:47 Urine pH 5.5 (5-7) 10/17/24 21:47 Ur Specific [place] 1.015 (1.005-1.030) 10/17/24 21:47 Urine Protein Negative (Negative) 10/17/24 21:47 Urine Glucose (UA) Negative (Normal) 10/17/24 21:47 Urine Ketones Negative (Negative) 10/17/24 21:47 Urine Blood Negative (Negative) 10/17/24 21:47 Urine Nitrate Negative (Negative) 10/17/24 21:47 Urine Bilirubin Negative (Negative) 10/17/24 21:47 Urine Urobilinogen 1.0 mg/dL (Negative) 10/17/24 21:47 Ur Leukocyte Esterase 2+ (Negative) A 10/17/24 21:47 Urine RBC 0-2 /hpf (0-2) 10/17/24 21:47 Urine WBC 21-50 /hpf (0-5) H 10/17/24 21:47 Ur Squamous Epith Cells 0-5 /hpf (0-5) 10/17/24 21:47 Amorphous Sediment Not Reportable 10/17/24 21:47 Urine Bacteria None seen /hpf (NONE) 10/17/24 21:47 Hyaline Casts 1.21 /lpf 10/17/24 21:47 All radiology interpretation(s) finalized by discharge EKG Data EKG 1: Interpretation: Atrial fibrillation, Q waves aVL, V2, no ST segment elevation, QTc 423. Discharge Plan Discharge Patient Disposition: Home Clinical Impression: Pyuria Anemia Qualifiers: Anemia type: unspecified type Qualified Code(s): D64.9 - Anemia, unspecified Condition: Stable Prescriptions: New cefdinir 300 mg capsule 300 mg PO BID 10 Days Qty: 20 0RF sucralfate [Carafate] 1 gram tablet 1 g PO TID 28 Days Qty: 84 0RF pantoprazole 40 mg tablet,delayed release (DR/EC) 40 mg PO Q12H 30 Days Qty: 60 0RF No Action levothyroxine 88 mcg tablet 88 mcg PO QAM Eliquis 5 mg tablet 5 mg PO BID gabapentin 600 mg tablet 600 mg PO TID loratadine 10 mg tablet 10 mg PO DAILY PRN (Reason: Allergy Symptoms) Myrbetriq 50 mg tablet extended release 24 hr 50 mg PO QAM cephalexin 500 mg capsule 500 mg PO TID Qty: 15 0RF clindamycin HCl 300 mg capsule 300 mg PO TID Qty: 30 0RF amoxicillin-pot clavulanate 875-125 mg tablet 1 tab PO BID Qty: 20 0RF MediHoney (honey) 100 % paste 1 applic topical BID Qty: 103 0RF trazodone 50 mg Tablet 25 - 50 mg PO BEDTIME PRN (Reason: Sleep) duloxetine [Cymbalta] 60 mg Capsule,Delayed Release(Dr/Ec) 60 mg PO QAM cholecalciferol (vitamin D3) 1,250 mcg (50,000 unit) capsule 50,000 unit PO Q7D Rx Instructions: (ON SUNDAYS) hydrocodone-acetaminophen 10-325 mg tablet 1 tab PO TID PRN (Reason: Pain) Thermotabs 287-180-15 mg Tablet 1 tab PO QAM fluticasone propionate [Flonase Allergy Relief] 50 mcg/actuation Chunky,Suspension 1 - 2 spray INTRANASAL DAILY PRN (Reason: Nasal Congestion) nitroglycerin 0.4 mg tablet, sublingual 0.4 mg SUBLINGUAL Q5M PRN (Reason: chest pain) Qty: 30 0RF Rx Instructions: do not exceed 3 doses per episode tizanidine 2 mg tablet 2 mg PO BID pravastatin 40 mg tablet 40 mg PO DAILY acyclovir 400 mg tablet 400 mg PO TID amlodipine 10 mg tablet 10 mg PO DAILY levalbuterol tartrate 45 mcg/actuation HFA aerosol inhaler 2 puff INHALATION QID PRN (Reason: Shortness Of Breath) Jardiance 10 mg tablet 10 mg PO QAM digoxin 125 mcg (0.125 mg) tablet 125 mcg PO QAM potassium chloride 20 mEq tablet extended release 20 meq PO .FIVE TIMES A DAY mupirocin 2 % ointment 1 applic topical DAILY Qty: 22 0RF montelukast 10 mg Tablet 10 mg PO QAM donepezil 10 mg tablet 10 mg PO QAM alendronate 70 mg tablet 70 mg PO Q7D Rx Instructions: ON THURSDAY lisinopril 10 mg Tablet 10 mg PO BID furosemide 20 mg tablet 20 mg PO QAM Prolia 60 mg/mL syringe See Rx Instructions .ROUTE .COMPLEX Rx Instructions: INJECT CONTENTS OF ONE PEN UNDER SKIN EVERY SIX MONTHS cefdinir 300 mg capsule 300 mg PO BID Qty: 14 0RF Zithromax 250 mg tablet See Rx Instructions .ROUTE .COMPLEX Qty: 6 0RF Rx Instructions: For 250 mg dose pack: take 500 mg today (day 1), then 250 mg for 4 days (days 2-5) ondansetron 4 mg tablet,disintegrating 4 mg PO Q6H PRN (Reason: nausea and vomiting) Qty: 14 0RF Discharge Orders: Discharge ED (Routine); Ordered 10/18/24 Ordered By: Layne Foster Referrals: Alison Ramos MD [Primary Care Provider, Internal Medicine] Patient Instructions: Gastrointestinal Bleeding (ED), Urinary Tract Infection in Women (ED), Patient Portal & [facility] Instructions Activity Restrictions/Additional Instructions: Hold apixaban/Eliquis. No aspirin, no NSAIDs. Take pantoprazole and Carafate as directed for possible GI bleed. This has been sent to your pharmacy. Your urine is being cultured. Antibiotics have been sent to the pharmacy. Utilize as directed. Call your doctor tomorrow. You will need a repeat on your blood count in the next 1-2 days. Print Language: Citizen Of [place] Coding Level of Care Code ED Foundry Process Engineer for Juan F Mckinney
[2024-10-17 20:41] VITALS: BP 134/74; PULSE 101; RESP 17; O2SAT 94
--- OUTSIDE RECORDS SUMMARY | 2024-10-17 20:50 | XMS_ITS | Encounter Summary ---
[facility] Address [address] [place] [address] Care Team Providers Care Call Circuit Worker Name Role Phone Alison Ramos MD Primary Care Provider Encounter Details Date Type Department Care Team (Late Contact Info) Description 03/11/2024 Lab Requisition [facility] [address] [place] [phone] Alison Ramos MD [address] [facility] [address] [place] [address] Urinary tract infection, site not specified Social History Tobacco Use Types Packs/Day Years Used Date Smoking Tobacco: Former Cigarettes Smokeless Tobacco: Never Alcohol Use Standard Drinks/Week Comments Not Currently 0 (1 standard drink = 0.6 oz pur e alcohol) Comments No Sex and Gender Information Value Date Recorded Sex Assigned at Not on file Legal Sex Female 11:31 PM PEDIATRIC CNS Gender Identity Not on file Sexual Orientation Not on file documented as of this encounter Plan of Treatment Upcoming Encounters Date Type Department Care Team (Late Contact Info) Description 11/09/2024 9:45 AM CDT Office Visit [facility] [place] [address] [place] [address] Alison Ramos MD [address] [place] [address] [place] [address] 12/07/2024 9:00 AM CDT Office Visit [facility] [place] [address] [place] [phone] Alison Ramos MD [address] [place] [phone] 01/09/2025 9:30 AM CDT Office Visit [facility] [place] [address] [place] [address] Alison Ramos MD [address] [place] [address] documented as of this encounter Procedures Procedure Name Priority Date/Time Associated Diagnosis Comments URINE CULTURE Routine 03/11/2024 3:00 PM PEDIATRIC CNS Urinary tract infection, site not specified documented in this encounter Results * URINE CULTURE (03/11/2024 3:00 PM PEDIATRIC CNS) CULTURE Polymicrobial growth consistent with normal urethral alda and/or colonizing bacteria 03/13/2024 7:27 AM PEDIATRIC CNS [facility] Urine Collection / Unknown 03/11/2024 3:00 PM PEDIATRIC CNS 03/11/2024 5:50 PM PEDIATRIC CNS Alison Ramos MD MICROBIOLOGY - GENERAL ORDERABLES Final Result [facility] [id number] [address] [place], [place] [address] [id number] documented in this encounter Visit Diagnoses Diagnosis Urinary tract infection, site not specified documented in this encounter Additional Health Concerns Infection Onset Date Last Indicated Resolved Time R/O COVID-19 06/17/2024 06/17/2024 06/17/2024 9:17 AM CDT R/O COVID-19 08/26/2024 08/26/2024 08/26/2024 10:2 7 AM CDT documented as of this encounter Care Teams Call Circuit Worker Relationship Specialty Start Date End Date Alison Ramos MD [address] [place] [address] [place] [address] PCP - General Internal Medicine 07/21/24 documented as of this encounter
--- OUTSIDE RECORDS SUMMARY | 2024-10-17 20:50 | XMS_ITS | Clinical Summary ---
Author Organization [facility]ainey P[facility] Address [address] [address] [place] [address] Phone Care Team Providers Care Head Of Product Name Role Phone Alison Ramos MD Primary Care Provider Allergies No known active allergies Medications apixaban (ELIQUIS ORAL) Take 5 mg by mouth 2 times daily. Active digoxin (LANOXIN) 125 mcg (0.125 mg) tablet Take 125 mcg by mouth daily. Active mirabegron (Myrbetriq) 50 mg Extended Release 24 hour tablet Take 50 mg by mouth daily. Active levothyroxine 88 mcg tablet Take 88 mcg by mouth daily in the morning. Active furosemide (LASIX) 20 mg tablet Take 20 mg by mouth daily. Active gabapentin (NEURONTIN) 600 mg tablet Take 600 mg by mouth 3 times daily. Active loratadine (CLARITIN) 10 mg tablet Take 10 mg by mouth daily. Active pravastatin (PRAVACHOL) 20 mg tablet Take 20 mg by mouth daily. Active traZODone (DESYREL) 50 mg tablet Take 50 mg by mouth daily at bedtime. Active cholecalciferol , vitamin D3, (VITAMIN D3 ORAL) Take 50,000 Units by mouth every 7 days. Active DULoxetine (CYMBALTA) 60 mg Capsule, Delayed Release(E.C.) Take 60 mg by mouth daily. Active hydrOXYzine HCL (ATARAX) 25 mg tablet Take 25 mg by mouth daily at bedtime. Active albuterol sulfate HFA 90 mcg/actuation aerosol inhaler Take 2 Puffs by inhalation every 4 hours as needed for Shortness of Breath. Active nitroglycerin (NITROSTAT) 0.4 mg Tablet, Sublingual Place 0.4 mg under tongue every 5 minutes as needed for Chest Pain. Active potassium chloride (KLOR-CON) 20 mEq Extended Release tablet Take 20 mEq by mouth late in the day. Active HYDROCODONE-FELIPE TAMINOPHEN ORAL Take 1 Tablet by mouth every 8 hours as needed. Active donepeziL (ARICEPT) 5 mg tablet Take 10 mg by mouth daily. Active sod.chlorid/pot assium chloride (THERMOTABS ORAL) Take 1 Tablet by mouth daily. Active umeclidinium brm/vilanterol tr (ANORO ELLIPTA INHALATION) Take 1 Puff by inhalation daily. Active lisinopriL (PRINIVIL) 10 mg tablet Take 10 mg by mouth 2 times daily. Active tiZANidine (ZANAFLEX) 2 mg Tablet Take 2 mg by mouth 2 times daily as needed for Spasm. Active diltiaZEM (TIAZAC) 180 mg Extended Release capsule Take 180 mg by mouth daily. Active amLODIPine (NORVASC) 10 mg tablet Take 10 mg by mouth daily. Active montelukast (SINGULAIR) 10 mg tablet Take 10 mg by mouth daily. Active triamcinolone acetonide (KENALOG) 0.1 % Lotion Apply to affected area 3 times daily as needed. Active ondansetron (ZOFRAN) 8 mg Tablet Take 8 mg by mouth every 8 hours as needed for Nausea/Emesis. Active mupirocin (BACTROBAN) 2 % Ointment APPLY 1 APPLICATION TOPICALLY TWICE A DAY 22 Gram 4 11/05/19 25 Active busPIRone (BUSPAR) 5 mg tablet Take 1 Tablet (5 mg) by mouth 2 times daily for anxiety. 60 Tablet 5 02/01/2024 10:34 AM [employer]OMOTIVE [employer]ODUCT [employer] 4 Active diclofenac sodium (VOLTAREN) 1 % gel Apply 2 Grams to affected area 3 times daily to joint for arthritis. 300 Gram 5 4 Active HYDROcodone-felipe taminophen (NORCO) 10-325 mg Tablet Take 1 Tablet by mouth every 8 hours as needed. Max Daily Amount: 3 Tablets 90 Tablet 03/11/2024 12:06 PM [employer] 4 Active lidocaine (Lidoderm) 5 % Adhesive Patch, Medicated Apply 1-2 Patches to affected area daily. 60 Patch 3 4 Active HYDROcodone-felipe taminophen (NORCO) 10-325 mg Tablet Take 1 Tablet by mouth every 8 hours. Max Daily Amount: 3 Tablets 90 Tablet 04/13/2024 3:07 PM [employer] 5 Active nystatin (MYCOSTATIN) 100,000 unit/gram Cream Apply 1 APPLICATION Topically Three times a day 60 Gram 1 04/13/2024 3:07 PM [employer]ODUCT [employer] 5 Active HYDROcodone-felipe taminophen (NORCO) 10-325 mg Tablet Take 1 Tablet by mouth every 8 hours as needed. Max Daily Amount: 3 Tablets 90 Tablet 06/08/2024 11:58 AM CDT 5 Active HYDROcodone-felipe taminophen (NORCO) 10-325 mg Tablet Take 1 Tablet by mouth every 8 hours as needed. Max Daily Amount: 3 Tablets 69 Tablet 06/15/2024 1:55 PM CDT 5 Active fluticasone propionate (FLONASE) 50 mcg/spray [place], Suspension nasal inhaler Administer 2 Sprays in each nostril daily. 16 Gram 5 Active HYDROcodone-felipe taminophen (NORCO) 10-325 mg Tablet Take 1 Tablet by mouth every 8 hours. Max Daily Amount: 3 Tablets 90 Tablet 07/11/2024 11:33 AM CDT 5 Active pantoprazole (PROTONIX) 40 mg Tablet, Delayed Release (E.C.) Take 1 Tablet (40 mg) by mouth 2 times daily. 60 Tablet 1 5 Active HYDROcodone-felipe taminophen (NORCO) 10-325 mg Tablet Take 1 Tablet by mouth every 8 hours as needed. Max Daily Amount: 3 Tablets 90 Tablet 08/09/2024 2:54 PM CDT 5 Active cefdinir (OMNICEF) 300 mg capsule Take 1 Capsule (300 mg) by mouth 2 times daily. 20 Capsule 08/09/2024 2:54 PM CDT 5 Active nystatin (MYCOSTATIN) 100,000 unit/gram Ointment Apply topically to affected area 2 times daily. 30 Gram 2 08/09/2024 2:54 PM CDT 5 Active promethazine-de xtromethorphan (PHENERGAN-DM) 6.25-15 mg/5 mL syrup Take 5-10 mL by mouth every 8 hours as needed for cough. 473 mL 05/20/202 5 Active predniSONE (DELTASONE) 5 mg tablet 50 mg x 2 days 40 mg x 2 days 30 mg x 2 days 20 mg x 2 days 10 mg x 2 days 5 mg x 2 days 62 Tablet 5 Active traMADol (ULTRAM) 50 mg tabletIndicatio ns:Rib contusion, left, initial encounter Take 1 Tablet (50 mg) by mouth every 6 hours as needed for Pain. 20 Tablet 5 Active naloxone (NARCAN) 4 mg/spray [place], Non-Aerosol EMERGENCY USE ONLY: Administer 1 spray (4 mg) in one nostril one time. May repeat in alternating nostrils every 2-3 min until responsive or EMS arrives. 2 Each 3 5 Active HYDROcodone-felipe taminophen (NORCO) 10-325 mg Tablet Take 1 Tablet by mouth every 8 hours as needed. Max Daily Amount: 3 Tablets 90 Tablet 09/08/2024 11:36 AM CDT 5 Active ferrous sulfate (Iron) 325 mg (65 mg iron) tablet Take 1 Tablet (325 mg) by mouth daily. 90 Tablet 3 5 Active HYDROcodone-felipe taminophen (NORCO) 10-325 mg Tablet Take 1 Tablet by mouth every 8 hours as needed. Max Daily Amount: 3 Tablets 90 Tablet 10/07/2024 11:49 AM CDT 5 Active olopatadine 0.7 % Drops Administer 1 Drop in both eyes once to twice daily as needed for allergy. 5 mL 2 5 Active apixaban (ELIQUIS) 2.5 mg tablet Take 1 Tablet (2.5 mg) by mouth 2 times daily. 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 RUQ abdominal pain 05/01/2022 Calculus of gallbladder with out cholecystitis without obstruction 05/01/2022 Abnormal serum thyroid stimulating hormone (TSH) level 05/01/2022 Encounters Date Type Department Care Team Description 5 External Device Data Initial Department [address] [place] [address] Dr SUÁREZ: [place] [address] [facility] 5 External Device Data Initial Department [address] [place] [address] Dr SUÁREZ: Prelude [place], [place] [address]Blake Andrade [facility] 5 External Device Data Initial Department [address] [place] [address] Dr SUÁREZ: [place] [address] Raymond Faustin Md 5 3:26 PM CDT - 5 6:53 PM T Emergency [facility] Emergency Medicine [address] [facility] [address] [place] [address] José Miguel Thao DO Generalized muscle weakness (Primary Dx); Dehydration Discharge Disposition: Home or Self Care 5 3:58 AM CDT - 5 5:54 AM T [facility] Emergency Medicine [address] [facility] [address] [place] [address] Kvng Nolan MD Rib contusion, left, initial encounter (Primary Dx) Discharge Disposition: Home or Self Care 5 9:05 AM CDT - 5 11:40 AM T Emergency [facility] Emergency Medicine [address] [facility] [address] [place] [address] Kvng Nolan MD Urinary tract infection without hematuria, site unspecified (Primary Dx); Chronic obstructive pulmonary disease with acute exacerbation (CMS/HCC) Discharge Disposition: Home or Self Care 5 Travel 5 External Device Data STL ABSTRACTION Provider, Abstract 5 External Device Data STL ABSTRACTION Provider, Abstract 5 External Device Data Initial Department [address] [place] [address] Dr SUÁREZ: [place] [address] [facility] 5 External Device Data STL ABSTRACTION Provider, Abstract 5 External Device Data STL ABSTRACTION Provider, Abstract 5 Results Follow-Up [facility] Emergency Medicine [address] [facility] [address] [place] [phone] Ifrah Emery RN OCCULT BLOOD GUAIAC DIAGNOSTIC 5 12:40 PM CDT Anesthesia Event [facility] Endoscopy [address] [place] [phone] Iam Walls MD 5 9:00 AM CDT - 5 9:20 AM CDT Surgery [facility] Endoscopy [address] [place] [phone] Rodney Bright MD ESOPHAGOGASTRODUODENOSCOPY 5 1:34 AM CDT - 5 2:18 PM CDT Hospital Encounter [facility] 7B Medical Surgical [address] [place] [phone] Dominik Mandujano MD Samavedam, Sandhya, MD Meyer III, DO Duarte Stanton, Lila Floyd MD Acute gastric ulcer with hemorrhage Discharge Disposition: Home or Self Care 5 10:15 PM CDT - 5 12:06 AM CDT Emergency [facility] Emergency Medicine [address] [facility] [address] [place] [phone] Bubba Shirley MD Upper GI bleeding (Primary Dx); Melena Discharge Disposition: Acute Care Hospital from Last 3 Months Social History Tobacco Use Types Packs/Day Years Used Date Smoking Tobacco: Former Cigarettes Smokeless Tobacco: Never Tobacco Cessation:Counseling Given: Not Answered Alcohol Use Standard Drinks/Week Comments Not Currently 0 (1 standard drink = 0.6 oz pur e alcohol) Comments No Sex and Gender Information Value Date Recorded Sex Assigned at Not on file Legal Sex Female 11:31 PM [employer]IVE [employer] Gender Identity Not on file Sexual Orientation Not on file Last Filed Vital Signs Vital Sign Reading Time Taken Comments Blood Pressure 120/91 08/27/2024 6:42 PM CDT Pulse 100 08/27/2024 6:42 PM CDT Temperature 36.1 C (96.9 F) 08/27/2024 3:26 PM CDT Respiratory Rate 18 08/27/2024 6:42 PM CDT Oxygen Saturation 98% 08/27/2024 6:42 PM CDT Inhaled Oxygen Concentration - - Weight 71.7 kg (158 lb) 08/27/2024 3:26 PM CDT Height 167.6 cm (5' 6 ) 08/27/2024 3:26 PM CDT Body Mass Index 25.5 08/27/2024 3:26 PM CDT Plan of Treatment Upcoming Encounters Date Type Department Care Team (Late st Contact Info) Description 11/09/2024 9:45 AM CDT Office Visit [facility] Primary Care [place] [address] [place] [address] [place] [address] Alison Ramos MD [address] [place] [address] 12/07/2024 9:00 AM CDT Office Visit [facility] Primary Care [place] [address] [place] [address] [place] [address] Ailson Ramos MD [address] [place] [address] 01/09/2025 9:30 AM CDT Office Visit [facility] Primary Care [place] [address] [place] [address] [place] [address] Alison Ramos MD [address] [place] [address] Health Maintenance Due Date Last Done Comments DIABETES ANNUAL FOOT EXAM 1960 DIABETES ANNUAL RETINAL EXAM 1960 DIABETES HBA1C Q 6 MONTHS 1960 DIABETES MICROALBUMIN ANNUAL SCREEN 1960 LDL CHOLESTEROL ANNUAL 1960 DTAP/TDAP/TD VACCINES (1 - Tdap) 1961 ZOSTER VACCINE (1 of 2) 1992 OSTEOPOROSIS SCREENING 12/25/2007 RSV VACCINE (60+ or ) (1 - 1-dose 75+ series) 2017 COVID-19 Vaccine (3 - season) 11/22/202308/2020, 05/29/2020 [place] Prev entative Visit/Annual Wellness Visit 03/23/2024 INFLUENZA VACCINE (#1) 2024 PNEUMOCOCCAL VACCINE 50+ YEARS Completed 03/03/2023 Medical Devices Implanted Type Area Occupational Hygienist Device Identifier Shelf Expiration Date Model / Serial / Lot Clip Endo Resolution 360 Ultra 2.8mm 235cm [id number] - [id number] Implanted:Qty: 1 on 07/18/2024 by Rodney Bright MD at [facility] Clip N/A: Stomach Crowdx GOMEZ [id number] 03/29/2027 [id number] / / [id number] Procedures Procedure Name Priority Date/Time Associated Diagnosis Comments OCCULT BLOOD GUAIAC DIAGNOSTIC Stat 0 08/27/2024 5:54 PM CDT DRUG SCREEN, URINE Stat 08/27/2024 5:42 PM CDT URINALYSIS W/REFLEX MICROSCOPIC Stat 08/27/2024 5:42 PM CDT AMMONIA LEVEL Stat 08/27/2024 4:45 PM CDT ACETAMINOPHEN LEVEL Stat 08/27/2024 3:57 PM CDT SALICYLATE LEVEL Stat 08/27/2024 3:57 PM CDT LACTIC ACID Stat 08/27/2024 3:57 PM CDT ETHANOL LEVEL Stat 08/27/2024 3:57 PM CDT COMPREHENSIVE METABOLIC PANEL Stat 3:57 PM CDT CBC WITH DIFFERENTIAL Stat 08/27/2024 3:57 PM CDT XR RIBS UNILATERAL LEFT W PA CHEST Stat 08/27/2024 5:16 AM CDT URINALYSIS MICROSCOPY ONLY Stat 08/26 10:18 AM CDT URINALYSIS W/REFLEX MICROSCOPIC Stat 08/26/2024 10:18 AM CDT XR CHEST PA OR AP 1 VW Stat 10:17 AM CDT DIFFERENTIAL, MANUAL Stat 08/26/2024 9:25 AM CDT COMPREHENSIVE METABOLIC PANEL Stat 9:25 AM CDT CBC WITH DIFFERENTIAL Stat 08/26/2024 9:25 AM CDT COVID-19 ANTIGEN Stat 08/26/2024 12:28 AM CDT INFLUENZA VIRUS A AND B, ANT IGEN DETECTION Stat 08/26/2024 12:28 AM CDT TELEMETRY REPORT 07/21/2024 1:09 AM CDT BASIC METABOLIC PANEL Routine 07/20/2024 9:58 AM CDT CBC WITH DIFFERENTIAL Routine 07/20/2024 9:58 AM CDT HEMOGLOBIN AND HEMATOCRIT Routine 2024 1:33 PM CDT COMPREHENSIVE METABOLIC PANEL Routine 3:32 AM CDT CBC WITH DIFFERENTIAL Routine 07/19/2024 3:32 AM CDT HEMOGLOBIN AND HEMATOCRIT Routine 2024 5:18 PM CDT UPPER ENDOSCOPY REPORT 1:04 PM CDT HEMOGLOBIN AND HEMATOCRIT Routine 2024 9:58 AM CDT ESOPHAGOGASTRODUODENOSCOPY 07/18 9:00 AM CDT TRANSFUSE PACKED RED BLOOD CELLS Routine 07/18/2024 5:40 AM CDT COMPREHENSIVE METABOLIC PANEL Routine 4:24 AM CDT CBC WITH DIFFERENTIAL Routine 07/18/2024 4:24 AM CDT PREPARE RED BLOOD CELLS Stat 07/19/19 2:13 AM CDT TYPE AND SCREEN Stat 07/18/2024 1:51 AM CDT HEMOGLOBIN AND HEMATOCRIT Stat 2024 1:51 AM CDT CRITICAL CARE Routine 07/18/2024 1:33 AM CDT from Last 3 Months Results * OCCULT BLOOD GUAIAC DIAGNOSTIC (08/27/2024 5:54 PM CDT) OCCULT BLOOD, STOOL Negative Negative 08/27/2024 6:[address] [facility] Stool STOOL SPECIMEN / Unknown Collection / Unknown 08/27/2024 5:54 PM CDT 08/27/2024 6:03 PM CDT us José Miguel Thao DO BODY FLUIDS AND STOOLS Final Re sult [facility] CLIA # [id number] [address] [place] [address] * (ABNORMAL) DRUG SCREEN, URINE (08/27/2024 5:42 PM CDT) CANNABINOIDS QUAL, URINE Negative Negative 08/27/2024 6:[address] [facility] PCP QUAL, URINE Negative Negative 6:[address] [facility] COCAINE QUAL URINE Negative Negative 2024 6:[address] [facility] METHAMPHETAMINE QUAL, URINE Negative Negative 08/27/2024 6:[address] [facility] OPIATE QUAL, URINE Presumptive Positive(A) Negative 08/27/2024 6:[address] [facility] AMPHETAMINE QUAL, URINE Negative Negative 08/27/2024 6:[address] [facility] BENZODIAZEPINE QUAL, URINE Negative Negative 08/27/2024 6:[address] [facility] TRICYCLICS QUAL, URINE Negative Negative 08/27/2024 6:[address] [facility] METHADONE QUAL, URINE Negative Negative 08/27/2024 6:[address] [facility] BARBITURATE QUAL, URINE Negative Negative 08/27/2024 6:[address] [facility] OXYCODONE QUAL, URINE Negative Negative 08/27/2024 6:00 PM [facility] Urine URINE SPECIMEN OBTAINED BY CLEAN CATCH PROCEDURE / Unknown Collection / Unknown 08/27/2024 5:42 PM CDT 08/27/2024 5:[address] [facility] - 08/27/2024 6:00 PM CDT This test is a qualitative screen. The presumptive positive results should not be used for legal purposes. If confirmation of results is desired, the lab must be contacted without delay. Drug Screening Threshold Amphetamines 500 ng/mL Barbiturates 200 ng/mL Benzodiazepines 150 ng/mL Cocaine Metabolites 150 ng/mL Methamphetamine 500 ng/mL Methadone 200 ng/mL Opiates 100 ng/mL Oxycodone 100 ng/mL Phencyclidine 25 ng/mL THC Cannabinoids 50 ng/mL Tricyclic Antidepressants 300 ng/mL José Miguel Thao DO URINE ORDERABLES Final Result [facility] CLIA # [id number] [address] [place] [address] * (ABNORMAL) URINALYSIS WITH REFLEX MICROSCOPIC (08/27/2024 5:42 PM CDT) Only the most recent of2 resultswithin the time period is included. COLOR UA Yellow Pale to Dark Yellow 08/27/2024 5:[address] [facility] CLARITY UA Clear Clear 08/27/2024 5:[address] [facility] SPECIFIC GRAVITY UA 1.020 1.003 - 1.035 08/27/2024 5:[address] [facility] PH UA 6.0 5.0 - 8.0 08/27/2024 5:[address] [facility] LEUKOCYTE ESTERASE UA Negative Negative 08/27/2024 5:[address] [facility] NITRITE UA Negative Negative 08/27/2024 5:[address] [facility] PROTEIN UA Negative Negative 08/27/2024 5:[address] [facility] GLUCOSE UA 2+(A) Negative 08/27/2024 5:[address] [facility] KETONES UA Trace(A) Negative 08/27/2024 5:[address] [facility] UROBILINOGEN UA 0.2 <2.0 mg/dL 5:[address] [facility] BILIRUBIN UA Negative Negative 08/27/2024 5:[address] [facility] BLOOD UA Negative Negative 08/27/2024 5:[address] [facility] Urine URINE SPECIMEN OBTAINED BY CLEAN CATCH PROCEDURE / Unknown Collection / Unknown 08/27/2024 5:42 PM CDT 08/27/2024 5:47 PM CDT us José Miguel Thao DO URINE ORDERABLES Final Result [facility] CLIA # [id number] [address] [place] [phone] * AMMONIA LEVEL (08/27/2024 4:45 PM CDT) AMMONIA 18.2 11.0 - 51.0 umol/L 08/27/2024 5:[address] [facility] Blood, venous 08/27/2024 4:4 5 PM CDT 08/27/2024 4:48 PM CDT José Miguel Thao DO CHEMISTRY ORDERABLES Final Resu lt Performing Organization Address City/[facility]/ZIP Co de Phone Number [facility] CLIA # [id number] [address] [place] [id number] * LACTIC ACID (08/27/2024 3:57 PM CDT) Pathologist [facility] LACTIC ACID 0.7 <=2.0 mmol/L 08/27/2024 4:[address] [facility] Blood BLOOD SPECIMEN / Unknown Venipuncture / Unknown 08/27/2024 3:57 PM CDT 08/27/2024 4:25 PM CDT José Miguel Thao DO CHEMISTRY ORDERABLES Final Resu lt [facility] CLIA # [id number] [address] [place] [phone] * (ABNORMAL) CBC WITH DIFFERENTIAL (08/27/2024 3:57 PM CDT) Only the most recent of5 resultswithin the time period is included. WBC 8.7 4.0 - 10.0 K/uL 08/27/2024 4:[address] [facility] RBC 3.26(L) 3.93 - 5.22 M/uL 08/27/2024 4:[address] [facility] HEMOGLOBIN 7.8(L) 11.2 - 15.7 g/dL 08/27/2024 4:28 PM [facility] HEMATOCRIT 25.8(L) 34.1 - 44.9 % 08/27/2024 4:28 PM [facility] MCV 79.1(L) 79.4 - 94.8 fL 08/27/2024 4:28 PM [facility] MCH 23.9(L) 25.6 - 32.2 pg 08/27/2024 4:28 PM [facility] MCHC 30.2(L) 32.2 - 35.5 g/dL 08/27/2024 4:28 PM [facility] RDW 16.9(H) 11.0 - 14.5 % 08/27/2024 4:28 PM [facility] RDW-STDEV 48.7 36.9 - 56.9 fL 08/27/2024 4:28 PM [facility] PLATELETS 275 163 - 337 K/uL 08/27/2024 4:28 PM [facility] MPV 9.7(L) 10.0 - 14.8 fL 08/27/2024 4:28 PM [facility] NEUTROPHILS 92(H) 34 - 71 % 08/27/2024 4:28 PM [facility] LYMPHOCYTES 4(L) 19 - 52 % 08/27/2024 4:28 PM [facility] MONOCYTES 3(L) 5 - 13 % 08/27/2024 4:28 PM [facility] EOSINOPHILS 0(L) 1 - 6 % 08/27/2024 4:28 PM [facility] BASOPHILS 0 0 - 1 % 08/27/2024 4:28 PM [facility] IMMATURE GRANULOCYTES 1 % 08/27/2024 4:28 PM [facility] NEUTROPHIL ABSOLUTE 7.98(H) 1.56 - 6.13 K/uL 08/27/2024 4:28 PM [facility] LYMPHOCYTE ABSOLUTE 0.31(L) 1.20 - 3.40 K/uL 08/27/2024 4:28 PM [facility] MONOCYTE ABSOLUTE 0.26 0.24 - 0.36 K/uL 08/27/2024 4:[address] [facility] EOSINOPHIL ABSOLUTE 0.03(L) 0.04 - 0.36 K/uL 08/27/2024 4:[address] [facility] BASOPHILS ABSOLUTE 0.01 0.01 - 0.08 K/uL 08/27/2024 4:[address] [facility] IMMATURE GRANULOCYTES ABSOLUTE 0.06 K/uL 08/27/2024 4:[address] [facility] Blood Venipuncture / Unknown 08/27/2024 3:57 PM CDT 08/27/2024 4:25 PM CDT us José Miguel Thao DO HEMATOLOGY ORDERABLES Final Res ult Performing Organization Address [facility] Co de Phone Number [id number] [address] [place] [phone] * ETHANOL LEVEL (08/27/2024 3:57 PM CDT) ETHANOL <10.10 <10.10 mg/dL 08/27/2024 4:[address] [facility] ETHANOL % <0.01 %w/v 08/27/2024 4:[address] [facility] Blood Venipuncture / Unknown 08/27/2024 3:57 PM CDT 08/27/2024 4:25 PM CDT us José Miguel Thao DO CHEMISTRY ORDERABLES Final Resu lt Performing Organization Address [facility]/ZIP Co de Phone Number [facility] CLIA # [id number] [address] [place] [phone] * ACETAMINOPHEN LEVEL (08/27/2024 3:57 PM CDT) ACETAMINOPHEN LEVEL <5 0 - 30 ug/mL 08/27/2024 4:[address] [facility] Blood Venipuncture / Unknown 08/27/2024 3:57 PM CDT 08/27/2024 4:25 PM CDT [facility] - 08/27/2024 4:41 PM CDT Therapeutic Range: 10-30 ug/mL The following Acetaminophen levels are associated with possible toxicity: 4 hours after dose >200 ug/mL 8 hours after dose >100 ug/mL 12 hours after dose >50 ug/mL [employer] CHEMISTRY ORDERABLES Final Resu lt Performing Organization Address [facility] Co de Phone Number [facility] CLIA # [id number] [address] [place] [phone] * SALICYLATE LEVEL (08/27/2024 3:57 PM CDT) SALICYLATE LEVEL <0.5 0.0 - 20.0 mg/dL 08/27/2024 4:[address] [facility] Blood Venipuncture / Unknown 08/27/2024 3:57 PM CDT 08/27/2024 4:25 PM CDT [facility] - 08/27/2024 4:42 PM CDT Negative <3.0 mg/dL Therapeutic 3.0 - 10 mg/dL Toxicity >30 mg/dl Lethal >60 mg/dL [employer] CHEMISTRY ORDERABLES Final Resu lt Performing Organization Address [facility] Co de Phone Number [facility] CLIA # [id number] [address] [place] [phone] * (ABNORMAL) COMPREHENSIVE METABOLIC PANEL (08/27/2024 3:57 PM CDT) Only the most recent of4 resultswithin the time period is included. SODIUM 133(L) 136 - 145 mmol/L 08/27/2024 4:[address] [facility] POTASSIUM 4.7 3.5 - 5.1 mmol/L 08/27/2024 4:41 PM [facility] CHLORIDE 100 98 - 107 mmol/L 08/27/2024 4:41 PM [facility] CO2 23 22 - 29 mmol/L 08/27/2024 4:41 PM [facility] CALCIUM 8.7(L) 8.8 - 10.2 mg/dL 08/27/2024 4:41 PM [facility] BUN 10 8 - 23 mg/dL 08/27/2024 4:41 PM [facility] CREATININE 0.96(H) 0.51 - 0.95 mg/dL 08/27/2024 4:41 PM [facility] Comment:The GFR result is no t clinically significant on patients <18 or >70 years of age. GLUCOSE 116(H) 74 - 99 mg/dL 08/27/2024 4:41 PM [facility] TOTAL PROTEIN 7.1 6.6 - 8.7 g/dL 08/27/2024 4:41 PM [facility] ALBUMIN 4.0 3.5 - 5.2 g/dL 08/27/2024 4:41 PM [facility] BILIRUBIN TOTAL 0.7 0.0 - 1.2 mg/dL 08/27/2024 4:41 PM [facility] ALKALINE PHOSPHATASE 61 35 - 104 U/L 08/27/2024 4:41 PM [facility] AST 22 0 - 35 U/L 08/27/2024 4:41 PM [facility] ALT 8 0 - 35 U/L 08/27/2024 4:41 PM [facility] GFR 59 mL/min/1.7 3 sq meter 08/27/2024 4:41 PM [facility] [facility] Comment:eGFR calculated with 2020 CKD-EPI equation. Vegetarian diet, extremely high or low muscle mass, and may affect results. Cystatin C with Glomerular Filtration Rate is a suitable alternative for these patients. ANION GAP 10 5 - 20 mmol/L 08/27/2024 4:41 PM [facility] Blood Venipuncture / Unknown 08/27/2024 3:57 PM CDT 08/27/2024 4:25 PM CDT José Miguel Thao DO CHEMISTRY ORDERABLES Final Resu lt [facility] CLIA # [id number] [address] [place] [address] * XR RIBS UNILATERAL LEFT W PA CHEST (08/27/2024 5:16 AM CDT) Anatomical Region Laterality Modality Chest Computed Radiogr aphy 08/27/2024 5:16 AM CDT Impressions 08/27/2024 7:33 AM CDT IMPRESSION: No acute radiographically evident left rib fractures. Left seventh rib fracture laterally is favored to be chronic, correlate clinically. Mild interstitial prominence in the lower lungs bilaterally may represent edema. Minimal amount of opacities in the left lung base represent atelectasis, infiltrate or scarring. Pulmonary venous hypertension. Remainder unremarkable. Narrative 08/27/2024 7:33 AM CDT Exam: Radiographs: XR RIBS UNILATERAL LEFT W PA CHEST Indication: See Reason for Exam Comparison: Chest x-ray dated 08/26/2024 Procedure Note Chris Xie MD - 08/27/2024 Exam: Radiographs: XR RIBS UNILATERAL LEFT W PA CHEST Indication: See Reason for Exam Comparison: Chest x-ray dated 08/26/2024 IMPRESSION: No acute radiographically evident left rib fractures. Left seventh rib fracture laterally is favored to be chronic, correlate clinically. Mild interstitial prominence in the lower lungs bilaterally may represent edema. Minimal amount of opacities in the left lung base represent atelectasis, infiltrate or scarring. Pulmonary venous hypertension. Remainder unremarkable. Kvng Nolan MD DIAGNOSTIC IMAGING ORDER MEGHAN Final Result * (ABNORMAL) URINALYSIS MICROSCOPY ONLY (08/26/2024 10:18 AM CDT) WBC UA 3-5(A) 0 - 2 /hpf 08/26/2024 11:[address] [facility] RBC UA 0-2 0 - 2 /hpf 08/26/2024 11:[address] [facility] BACTERIA UA 2+(A) Negative /hpf 08/26/2024 11:[address] [facility] EPITHELIAL CELLS, URINE 6-10(A) 0 - 5 /hpf 08/26/2024 11:[address] [facility] Urine URINE SPECIMEN OBTAINED BY CLEAN CATCH PROCEDURE / Unknown Collection / Unknown 08/26/2024 10:18 AM CDT 08/26/2024 10:50 AM CDT us Kvng Nolan MD URINE ORDERABLES Final R esult [facility] CLIA # [id number] [address] [place] [address] * XR CHEST PA OR AP 1 VW (08/26/2024 10:17 AM CDT) Anatomical Region Laterality Modality Chest Computed Radiogr aphy 08/26/2024 10:1 8 AM CDT Impressions 08/26/2024 10:24 AM CDT IMPRESSION: Please see below. Exam: XR CHEST PA OR AP 1 VW Date/Time of Exam: 08/26/2024 10:17 AM Reason For Exam: Cough. Diagnosis: See Reason for Exam. Comparison: 06/17/2024. Findings: Enlargement of the cardiomediastinal silhouette is present. A stable cardiomediastinal silhouette without acute airspace disease, pleural effusion, or pneumothorax is identified. Impression: 1. Enlargement of the cardiomediastinal silhouette without radiographic evidence of acute cardiopulmonary process otherwise identified. Narrative Procedure Note Elías Zhang MD - 08/26/2024 IMPRESSION: Please see below. Exam: XR CHEST PA OR AP 1 VW Date/Time of Exam: 08/26/2024 10:17 AM Reason For Exam: Cough. Diagnosis: See Reason for Exam. Comparison: 06/17/2024. Findings: Enlargement of the cardiomediastinal silhouette is present. A stable cardiomediastinal silhouette without acute airspace disease, pleural effusion, or pneumothorax is identified. Impression: 1. Enlargement of the cardiomediastinal silhouette without radiographic evidence of acute cardiopulmonary process otherwise identified. Kvng Nolan MD DIAGNOSTIC IMAGING ORDER MEGHAN Final Result * (ABNORMAL) MANUAL DIFFERENTIAL (08/26/2024 9:25 AM CDT) SEGMENTED NEUTROPHILS 85(H) 45 - 70 % 08/26/2024 10:25 AM [facility] LYMPHOCYTES RELATIVE 4(L) 20 - 45 % 08/26/2024 10:25 AM [facility] MONOCYTES RELATIVE 8 2 - 8 % 08/26/2024 10:25 AM [facility] EOSINOPHILS RELATIVE 1 0 - 5 % 08/26/2024 10:25 AM [facility] BASOPHILS RELATIVE 2 0 - 2 % 08/26/2024 10:25 AM [facility] NEUTROPHILS ABSOLUTE COUNT 9.86(H) 1.78 - 5.38 K/uL 08/26/2024 10:25 AM [facility] LYMPHOCYTES ABSOLUTE 0.46(L) 1.20 - 4.00 K/uL 08/26/2024 10:25 AM [facility] MONOCYTES ABSOLUTE 0.93(H) 0.30 - 0.82 K/uL 08/26/2024 10:25 AM [facility] EOSINOPHILS ABSOLUTE 0.12 0.04 - 0.54 K/uL 08/26/2024 10:25 AM [facility] BASOPHILS ABSOLUTE 0.23(H) 0.01 - 0.08 K/uL 08/26/2024 10:25 AM [facility] TOTAL CELLS COUNTED IN DIFF 100 08/26/2024 10:25 AM [facility] PLATELET EST. Adequate 08/26/2024 10:25 AM [facility] ANISOCYTOSIS 1+ /hpf 08/26/2024 10:25 AM [facility] MICROCYTES 1+ /hpf 08/26/2024 10:[address] [facility] HYPOCHROMIA 2+ /hpf 08/26/2024 10:[address] [facility] GIANT PLATELETS Present 10:[address] [facility] Blood Venipuncture / Unknown 08/26/2024 9:25 AM CDT 08/26/2024 9:59 AM CDT Kvng Nolan MD HEMATOLOGY ORDERABLES CO M Final Result [facility] CLIA # [id number] [address] [place] [address] * COVID-19 ANTIGEN (08/26/2024 12:28 AM CDT) COVID-19 ANTIGEN Presumptive Negative Presumptive Negative 08/26/2024 10:[address] [facility] Upper Respiratory ANTERIOR NARES SWAB / Unknown Collection / Unknown 08/26/2024 12:28 AM CDT 08/26/2024 10:[address] [facility] - 08/26/2024 10:27 AM CDT Carrol SARS antigen test has been authorized by FDA under an emergency use authorization (EUA) and has been authorized only for the detection of proteins from SARS-CoV-2 and influenza, not for any other viruses or pathogens. Carrol SARS Antigen RICO is intended for the simultaneous qualitative detection and differentiation of nucleocapsid protein antigen from SARS-CoV-2 directly from nasopharyngeal (ARMATURE WINDER AUTOMOTIVE) and nasal (NS) swab specimens collected from individuals who are suspected of respiratory viral infection consistent with COVID-19 by their healthcare provider within the first five (5) days of symptom onset when tested at least twice over three days with at least 48 hours between tests, or from individuals without symptoms or other epidemiological reasons to suspect COVID-19 when tested at least three times over five days with at least 48 hours between tests. This test is only authorized for the duration of the declaration that circumstances exist justifying the authorization of emergency use of in vitro diagnostics for detection and/or diagnosis of the virus that causes COVID-19 under Section 564(b)(1) of the Act, 21 U.S.C. 360bbb-3(b)(1), unless the authorization is terminated or revoked sooner. Negative results should be treated as presumptive and confirmed with a molecular assay, if necessary for patient care. Serial testing should be performed in individuals with negative results at least twice over three days (with 48 hours between tests) for symptomatic individuals or from individuals without symptoms or other epidemiological reasons to suspect COVID-19 when tested at least three times over five days with at least 48 hours between tests. Kvng Nolan MD MICROBIOLOGY - GENERAL O RDERABLES Final Result Performing Organization Address [facility] Co de Phone Number [id number] [address] [place] [address] * INFLUENZA VIRUS A AND B, ANTIGEN DETECTION (08/26/2024 12:28 AM CDT) [facility] INFLUENZA A AG NOT DETECTED Not Detected 08/26/2024 10:[address] [facility] INFLUENZA B AG NOT DETECTED Not Detected 08/26/2024 10:[address] [facility] Upper Respiratory ENTIRE NASOPHARYNX / Unknown Collection / Unknown 08/26/2024 12:28 AM CDT 08/26/2024 10:[address] [facility] - 08/26/2024 10:28 AM CDT Negative results do not rule out infection. If clinically indicated, consider PCR testing which is more sensitive than antigen testing. If PCR testing is desired, consult with your local laboratory as sample recollection may be required. Kvng Nolan MD MICROBIOLOGY - GENERAL O RDERABLES Final Result Performing Organization Address [facility] Co de Phone Number [facility] CLIA # [id number] [address] [place] [address] * TELEMETRY REPORT (07/21/2024 1:09 AM CDT) Provider Scanning ECG ORDERABLES Final Result * (ABNORMAL) BASIC METABOLIC PANEL (07/20/2024 9:58 AM CDT) SODIUM 139 136 - 145 mmol/L 07/20/2024 10:55 AM CDT [facility] POTASSIUM 4.0 3.5 - 5.1 mmol/L 07/20/2024 10:55 AM CDT [facility] CHLORIDE 107 98 - 107 mmol/L 07/20/2024 10:55 AM CDT [facility] CO2 22 22 - 29 mmol/L 07/20/2024 10:55 AM T [facility] CALCIUM 8.0(L) 8.8 - 10.2 mg/dL 07/20/2024 10:55 AM CDT [facility] BUN 12 8 - 23 mg/dL 07/20/2024 10:55 AM [facility] CREATININE 0.82 0.51 - 0.95 mg/dL 07/20/2024 10:55 AM T [facility] Comment:The GFR result is no t clinically significant on patients <18 or >70 years of age. GLUCOSE 115(H) 74 - 99 mg/dL 07/20/2024 10:55 AM [facility] GFR >60 mL/min/1.7 3 sq meter 07/20/2024 10:55 AM T [facility] Comment:eGFR calculated with 2020 CKD-EPI equation. Vegetarian diet, extremely high or low muscle mass, and may affect results. Cystatin C with Glomerular Filtration Rate is a suitable alternative for these patients. ANION GAP 10 9 - 20 mmol/L 07/20/2024 10:55 AM T [facility] Blood Venipuncture / Unknown 07/20/2024 9:58 AM CDT 07/20/2024 10:19 AM CDT Lila Ramachandran MD CHEMISTRY ORDERABLES F inal Result [facility] CLIA # [id number] [id number] [place] [address] * (ABNORMAL) HEMOGLOBIN AND HEMATOCRIT (07/19/2024 1:33 PM CDT) Only the most recent of4 resultswithin the time period is included. HEMOGLOBIN 8.5(L) 12.0 - 16.0 g/dL 07/19/2024 2:13 PM CDT [facility] HEMATOCRIT 28.4(L) 36.0 - 46.0 % 07/19/2024 2:13 PM CDT [facility] Blood Venipuncture / Unknown 07/19/2024 1:33 PM CDT 07/19/2024 1:54 PM CDT Richard VELASCO HEMATOLOGY ORDERAB LES Final Result [facility] CLIA # [id number] [facility] [address] * UPPER ENDOSCOPY REPORT (07/18/2024 1:04 PM CDT) Narrative Procedure Note Rdoney Bright MD - 07/18/2024 1:04 PM CDT [facility] GI Patient Name: Arielle Vences Procedure Date: 07/18/2024 Date of : 1940 Admit Type: Inpatient Age: 83 Attending MD: Rodney Bright , , Procedure: Upper GI endoscopy Indications: Melena Providers: Rodney Bright Referring MD: Medicines: Monitored Anesthesia Care Complications: No immediate complications. Procedure: Pre-Anesthesia Assessment: - Clements Protocol: - Pre-procedure Verification: Prior to the procedure, the patient's identity was verified by full name and date of . The patient's identity was verified on all pertinent medical records, including History and Physical and pre-anesthesia assessment. Also prior to the procedure, a History and Physical was performed, and patient medications, allergies and sensitivities were reviewed. The patient's tolerance of previous anesthesia was reviewed. The patient is competent. The risks and benefits of the procedure and the sedation options and risks were discussed with the patient. All questions were answered and informed consent was obtained. - Marking: The endoscopic procedure was visually marked on a patient wrist band delineating the patient name, proposed procedure and endoscopist's initials. - Time-Out: Prior to the start of the procedure, the patient's identification, proposed procedure, accurate signed consent, correctly labeled images and records, and need for prophylactic antibiotics were verified by the physician and the nurse in the endoscopy suite. - Prior to the procedure, a History and Physical was performed, and patient medications and allergies were reviewed. The patient's tolerance of previous anesthesia was also reviewed. The risks and benefits of the procedure and the sedation options and risks were discussed with the patient. All questions were answered, and informed consent was obtained. Prior Anticoagulants: The patient has taken no anticoagulant or antiplatelet agents. ASA Grade Assessment: II - A patient with mild systemic disease. After reviewing the risks and benefits, the patient was deemed in satisfactory condition to undergo the procedure. After obtaining informed consent, the endoscope was passed under direct vision. Throughout the procedure, the patient's blood pressure, pulse, and oxygen saturations were monitored continuously. The Endoscope was introduced through the mouth, and advanced to the second part of duodenum. The upper GI endoscopy was accomplished without difficulty. The patient tolerated the procedure well. Estimated Blood Loss: Estimated blood loss was minimal. Findings: The examined esophagus was normal. A small hiatal hernia was present. Many non-bleeding cratered gastric ulcers with a visible vessel were found in the gastric antrum. The largest lesion was 15 mm in largest dimension. Area was successfully injected with 2 mL of a 0.1 mg/mL solution of epinephrine for hemostasis. For hemostasis, one hemostatic clip was successfully placed. There was no bleeding during, or at the end, of the procedure. The examined duodenum was normal. Impression: - Normal esophagus. - Small hiatal hernia. - Non-bleeding gastric ulcers with a visible vessel. Injected. Clip was placed. - Normal examined duodenum. - No specimens collected. Recommendation: Follow an antireflux regimen indefinitely. Continue to monitor hemoglobin and hematocrit and transfuse PRBCs accordingly with target hemoglobin 8 and above Continue acid suppression, PPI therapy, twice a day Avoid NSAID medications Okay to start the patient on clear liquid diet If hemoglobin continues to be stable okay to advance by tomorrow Patient will need repeat upper endoscopy in 2 months to confirm gastric ulcer healing Continue present medications. The findings and recommendations were discussed with the patient's family. Rodney Bright, 07/18/2024 1:04:24 PM Number of Addenda: 0 Note Initiated On: 07/18/2024 12:40 PM Scope Withdrawal Time Scope In: Scope Out: [address] [place], [place] Rodney Bright MD GI PROCEDURE ORDERABL ES Final Result * TRANSFUSE RED BLOOD CELLS (07/18/2024 8:31 AM CDT) Dominik Mandujano MD BLOOD TRANSFUSION ORDERABLES Final Result * PREPARE RED BLOOD CELLS (07/18/2024 2:13 AM CDT) COMPONENT TYPE [id number] [facility] [place] COMPONENT IDENTIFICATION [id number] [facility] [place] UNIT ABO O [facility] [place] UNIT RH NEG [facility] [place] CROSSMATCH Compatible [facility] [place] COMPONENT STATUS Transfused [facility] [place] COMPONENT EXPIRATION DATE/TIME [id number] [facility] [place] COMPONENT CODING SYSTEM 9500 [facility] [place] VOLUME, BLOOD PRODUCT 350 [facility] [place] Other, specify 07/18/2024 2: 13 AM CDT Dominik Mandujano MD LAB TRANSFUSION ORDERABLES Ed ited Result - Final [facility] [place] CLIA#[id number] [address] [place] [address], * TYPE AND SCREEN (07/18/2024 1:51 AM CDT) ABO GROUP O 07/18/2024 2:45 AM CDT [facility] [place] RH (D) TYPE Negative 07/18/2024 2:45 AM CDT [facility] [place] ANTIBODY SCREEN Negative 07/18/2024 2:45 AM CDT [facility] [place] Blood Venipuncture / Unknown 07/18/2024 1:51 AM CDT 07/18/2024 2:00 AM CDT Dominik Mandujano MD BLOOD BANK ORDERABLES Edited Result - Final [facility] [place] CLIA#[id number] [facility] [place] [address], * Critical Care (07/18/2024 1:33 AM CDT) Narrative Dominik Mandujano MD - 07/18/2024 1:33 AM CDT Dominik Mandujano MD 07/18/2024 2:40 AM Critical Care Performed by: Dominik Mandujano MD Authorized by: Dominik Mandujano MD Critical care provider statement: Critical care time (minutes): 35 Critical care time was exclusive of: Separately billable procedures and treating other patients Critical care was necessary to treat or prevent imminent or life-threatening deterioration of the following conditions: Shock and circulatory failure Critical care was time spent personally by me on the following activities: Blood draw for specimens, ordering and performing treatments and interventions, development of treatment plan with patient or surrogate, ordering and review of laboratory studies, discussions with consultants, pulse oximetry, re-evaluation of patient's condition, evaluation of patient's response to treatment, examination of patient, review of old charts, interpretation of cardiac output measurements and obtaining history from patient or surrogate I assumed direction of critical care for this patient from another provider in my specialty: yes Care discussed with: admitting provider us Dominik Mandujano MD PROCEDURE/MINOR SURGICAL ORDE RABLES Final Result from Last 3 Months Insurance MEDICAID [place] [facility] RX [employer] PLANS (INTERNAL) [facility] RX INFOCROSSING Medicaid RX AETNA Medicare Part D Advance Directives For more information, please contact: [phone] * Default Full Code - Needs Discussion (Latest Code Status on File) Date Activated Date Inactivated Comments 07/18/2024 4:04 AM 07/20/2024 4:18 PM Care Teams Head Of Product Relationship Specialty Start Date End Date Alison Ramos MD [address] [place] [address] [place] [address] PCP - General Internal Medicine 07/21/24
--- OUTSIDE RECORDS SUMMARY | 2024-10-17 20:50 | XMS_ITS | Patient Health Record ---
Author Organization [facility] Address [address] [place], [place] [address] Care Team Providers Care Research Methodologist Name Role Phone Vangie Suzie COURTNEY Primary Care Provider Unavail able Ashleigh LOCKHART, Dario Unavailable [phone] Allergies Allergen (clinical drug ingredient) Drug/Non Drug Allergy documented on EMR Reaction Allergy Type Onset Date Status None or not verifiab le (uncoded) Unknown Allergy Active Reason For Referral No Information Plan Of Treatment No Information Insurance Providers Payer Name Payer Address Payer Phone Subscriber Number Group Number Insured Name Patient Relationship to Insured Coverage Start Date Coverage End Date [employer] Medicare Part B Claims Department [address] [address] [place] [address] [id number] Arielle Vences Self - patient is the insured [place] [address] [place] [address] [phone] [id number] Arielle Vences Self - patient is the insured Medical (General) History Medical History History ICD Code See scanned documentation Surgical History Surgery Date(Month/Year) Bladder surgery, 1999 Hysterectomy, 1999 Hospitalization History Reason Date(Month/Year) Closed fracture tibia and ankle, 1999
--- OUTSIDE RECORDS SUMMARY | 2024-10-17 20:50 | XMS_ITS | Encounter Summary ---
Author Organization [facility] Address [address] [place] [address] Care Team Providers Care Forensic Accountant Name Role Phone Alison Ramos MD Primary Care Provider Encounter Details Date Type Department Care Team (Late st Contact Info) Description 12/31/2023 Lab Requisition [facility] [address] [place] [phone] Alison Ramos MD [address] [facility] [address] [place] [address] Social History Tobacco Use Types Packs/Day Years Used Date Smoking Tobacco: Former Cigarettes Smokeless Tobacco: Never Alcohol Use Standard Drinks/Week Comments Not Currently 0 (1 standard drink = 0.6 oz pur e alcohol) Comments No Sex and Gender Information Value Date Recorded Sex Assigned at Not on file 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 Gender Identity Not on file Sexual Orientation Not on file documented as of this encounter Plan of Treatment Upcoming Encounters Date Type Department Care Team (Late st Contact Info) Description 11/09/2024 9:45 AM CDT Office Visit [facility] [place] [address] [place] [address] Alison Ramos MD [address] [place] [address] 12/07/2024 9:00 AM CDT Office Visit [facility] [place] [address] [place] [address] Alison Ramos MD [address] [place] [phone] 01/09/2025 9:30 AM CDT Office Visit [facility] [place] [address] [place] [address] Alison Ramos MD [address] [place] [phone] documented as of this encounter Procedures Procedure Name Priority Date/Time Associated Diagnosis Comments RHEUMATOID FACTOR Routine 12/31/2023 12: 00 AM CDT ROBERT SCREEN W/REFLEX Routine 12/31/2023 1 2:00 AM CDT documented in this encounter Results * RHEUMATOID FACTOR (12/31/2023 12:00 AM CDT) Pathologist [facility] RHEUMATOID FACTOR <13 <=30 IU/mL 12/31/2023 8:04 PM CDT [facility] Blood 12/31/2023 12/31/2023 4:2 2 PM CDT Alison Ramos MD CHEMISTRY ORDERABLES F inal Result [facility] [id number] [address] [place] [address] * ROBERT SCREEN W/REFLEX (12/31/2023 12:00 AM CDT) Pathologist [facility] ROBERT SCREEN NEGATIVE NEGATIVE 01/05/2024 2:47 PM CDT [facility] Comment: ROBERT IFA is a first line screen for detecting the presence of up to approximately 150 autoantibodies in various autoimmune diseases. A negative ROBERT IFA result suggests an ROBERT-associated autoimmune disease is not present at this time, but is not definitive. If there is high clinical suspicion for Sjogren's syndrome, testing for anti-SS-A/Ro antibody should be considered. Anti-Digan-1 antibody should be considered for clinically suspected inflammatory myopathies. AC-0: Negative International Consensus on ROBERT Patterns (https://doi.org/10.1515/sksg-6495-6847) For additional information, please refer to http://education.GeoEye/faq/XWF367 (This link is being provided for informational/ educational purposes only.) Blood Collection / Unknown 12/31/2023 12/31/2023 4:22 PM CDT Narrative [facility] 01/05/2024 2:47 PM CDT Performing Organization Information: Site ID: [id number] Name: [id number] Address: [address] [place] [address] [place] [address] Director: Farrukh Montenegro MD Alison Ramos MD CHEMISTRY ORDERABLES F inal Result [facility] [phone] documented in this encounter Visit Diagnoses Not on filedocumented in this encounter Additional Health Concerns Infection Onset Date Last Indicated Resolved Time R/O COVID-19 06/17/2024 06/17/2024 06/17/2024 9:17 AM CDT R/O COVID-19 08/26/2024 08/26/2024 08/26/2024 10:2 7 AM CDT documented as of this encounter Care Teams Forensic Accountant Relationship Specialty Start Date End Date Alison Ramos MD [address] [facility] [address] [place] [address] PCP - General Internal Medicine 07/21/24 documented as of this encounter
[2024-10-17 20:57] LABS: Hematocrit 28.2 % (36-47); Hemoglobin 8.00 g/dL (11.27-16.99); Mean Corpuscular HGB Conc 28.4 g/dL (30-55); Mean Corpuscular Hemoglobin 21.1 pg (27-33); Mean Corpuscular Volume 74.4 fl (85-98); Nucleated Red Blood Cells % 0 %; Platelet Count 308 10^3/cmm (157-399); Red Blood Count 3.79 10^6/uL (3.85-5.65); White Blood Count 10.89 10^3/uL (3.29-11.43)
--- NOTE | 2024-10-17 21:02 | ECG_ITS ---
[employer] Test Date: 2024-10-17 Pat Name: Arielle Vences Department: Room: Gender: Female Science Teacher: : 1940 Requested By: Layne Foster Order Number: [id number] Reba MD: Tremayne Hermosillo M.D. Measurements Intervals [place] Rate: 94 P: 0 AK: 0 QRS: -71 QRSD: 100 T: 67 QT: 371 QTc: 466 Interpretive Statements ATRIAL FIBRILLATION INCOMPLETE RIGHT BUNDLE BRANCH BLOCK [90+ ms QRS DURATION, TERMINAL R IN V1/V2, 40+ ms S IN I/aVL/V4/V5/V6] LEFT ANTERIOR FASCICULAR BLOCK [QRS AXIS <= -45, QR IN I, RS IN II] POSSIBLE ANTEROLATERAL MYOCARDIAL INFARCTION , OF INDETERMINATE AGE [30 ms Q WAVE IN I/aVL/V3-V6] Compared to ECG 02/22/2024 19:30:48 Incomplete right bundle-branch block now present Left anterior fascicular block now present Left-axis deviation no longer present Myocardial infarct finding still present Electronically Signed On 10-20-2024 10:27:19 CDT by Tremayne Hermosillo M.D. [email or web address]
[2024-10-17 21:16] VITALS: BP 120/72; PULSE 92; RESP 16; O2SAT 96
[2024-10-17 21:20] LABS: Lactic Sepsis W/Reflex 1.4 mmol/L (0.5-2.2)
[2024-10-17 21:21] LABS: Troponin(5th) Baseline 32 ng/L (0-10)
[2024-10-17 21:31] LABS: Alanine Aminotransferase 6 U/L (0-33); Albumin Level 4.1 g/dL (3.5-5.2); Alkaline Phosphatase 76 U/L (35-105); Aspartate Amino Transferase 20 U/L (0-32); Blood Urea Nitrogen 7 mg/dL (8-23); Calcium 9.1 mg/dL (8.5-10.5); Carbon Dioxide 25 mmol/L (22-29); Chloride 98 mmol/L (98-107); Creatinine Clr Calc Pharmacy 52.1093; Globulin 2.7 g/dL (1.3-4.6); Glucose 95 mg/dL (65-115); Lipase 99 U/L (13-60); Magnesium 1.9 mg/dL (1.7-2.3); NT Pro B Type Natriuretic Pept 1286 pg/mL (0-450); Osmolality Calculated 280 mOsm/kg (285-295); Sodium 136 mmol/L (136-145); Total Protein 6.8 g/dL (6.6-8.7)
[2024-10-17 21:33] LABS: Anion Gap 17.1 (5-19); Potassium 4.1 mmol/L (3.5-5.1)
[2024-10-17 21:56] LABS: Glucose Urine UA Negative (Normal); Nitrate Urine Negative (Negative); Specific Gravity, Urine 1.015 (1.005-1.030)
[2024-10-17 21:58] LABS: Add Urine Microscopic? YES
[2024-10-17 22:06] VITALS: BP 152/81; PULSE 95; RESP 16; O2SAT 92
[2024-10-17] MEDS: pantoprazole 40 mg SDV 80 MG IVP (22:51)
--- NOTE | 2024-10-17 22:51 | CTR_ITS ---
PROCEDURE INFORMATION: Exam: CT Abdomen And Pelvis With Contrast Exam date and time: 10/17/2024 11:07 PM Age: 83 years old Clinical indication: Abdominal pain; Generalized TECHNIQUE: Imaging protocol: Computed tomography of the abdomen and pelvis with contrast. Radiation optimization: All CT scans at this facility use at least one of these dose optimization techniques: automated exposure control; mA and/or kV adjustment per patient size (includes targeted exams where dose is matched to clinical indication); or iterative reconstruction. Contrast material: OMNI 350; Contrast volume: 100 ml; Contrast route: INTRAVENOUS (IV); COMPARISON: CT abdomen pelvis wo con [id number] 02/22/2024 10:15 PM RADIATION DOSE METRICS: Total DLP (mGy-cm): 420.3 FINDINGS: Lungs: Subsegmental atelectasis/scarring in the left lower lobe. Liver: Normal. No mass. Gallbladder and biliary ducts: Normal. No calcified stones. No ductal dilation. Pancreas: Normal. No ductal dilation. Spleen: Normal. No splenomegaly. Adrenal glands: Normal. No mass. Kidneys and ureters: Normal. No hydronephrosis. Stomach and bowel: Unremarkable. No obstruction. No mucosal thickening. Colonic diverticulosis without CT findings of acute diverticulitis. Appendix: The appendix is not visualized. No evidence of inflammation in the right lower Intraperitoneal space: Unremarkable. No free air. No significant fluid collection. Vasculature: Aortic atherosclerosis. No abdominal aortic aneurysm. Lymph nodes: Unremarkable. No enlarged lymph nodes. Urinary bladder: Unremarkable as visualized. Reproductive: Unremarkable as visualized. Bones/joints: Unremarkable. No acute fracture. Soft tissues: Subcutaneous calcifications, likely related to prior injection sites. CT/CT abdomen pelvis w con* [id number] IMPRESSION: No acute process in the abdomen or pelvis.
[2024-10-17 22:53] VITALS: BP 129/70; PULSE 104; RESP 18; O2SAT 92
[2024-10-17] MEDS: iohexol 350 mg/mL 500 mL Btl (per mL) IV (23:06)
[2024-10-17 23:21] LABS: Hematocrit 29.5 % (36-47); Hemoglobin 8.10 g/dL (11.27-16.99)
[2024-10-17 23:30] VITALS: BP 118/69; PULSE 91; RESP 16; O2SAT 98
[2024-10-17 23:30] LABS: Troponin 5 2HR 31.80 ng/L (0-10)
[2024-10-17 23:31] LABS: Troponin 5 2HR Delta -0.20 ABS# (0-10)
[2024-10-18] MEDS: cefTRIAXone 1,000 mg SDV 1000 MG IVP (00:24)
[2024-10-18 00:45] VITALS: BP 155/97; PULSE 88; RESP 18; O2SAT 90
== END 2024-10-18 00:46 | disposition home or self-care (01) ==
PROVIDERS: Emergency Provider Physician Assistant; PCP Internal Medicine
DX: R82.81 Pyuria (principal); D64.9 Anemia, unspecified; Z79.01 Long term (current) use of anticoagulants; J44.9 Chronic obstructive pulmonary disease, unspecified; I11.0 Hypertensive heart disease with heart failure; I50.22 Chronic systolic (congestive) heart failure
CPT/HCPCS: 36415; 74177; 80053; 81001; 83605; 83690; 83735; 83880; 84484; 85014; 85018; 85025; 87086; 93005; 96361; 96374; 96375; 99285; J0696; J2470; J7040; J9999

== ENCOUNTER 2024-11-21 16:17 | Inpatient (IN) | payer MEDICARE, MEDICAID, SELFPAY ==
--- OUTSIDE RECORDS SUMMARY | 2012-07-23 05:27 | XMS_ITS | Continuity of Care Document ---
Author Organization [facility] Address [address] [place] [address] Phone Care Team Providers Care Medical Assistant Dermatology Name Role Phone Dario Hickman DO Unavailable Unavailable Advance Directives Directive Yes / No Effective Date File Name No Information Encounters Encounter Description Practice Location Reason(s) For Visit Diagnoses Date Provider Providers Copied on Encounter [facility], [address] [place], [id number], [place] tel:[phone] Dario Hickman DO No Information [facility], [address] [facility] [address], [place], [id number], [place]. tel:[phone] Family History Family Member Type Diagnosis Age At Onset No Information Payers Payer name Insurance type Covered alliance party ID Authoriza tion(s) Medicare [id number] Social History Type Description Quantity Date Captured Comments Sex Female Smoking Status No Information Chief Complaint And Reason For Visit No Information Reason For Referral Reason For Referral No Information Plan Of Treatment Date Type Action Status Goal Colonoscopy. Due on 011 due Goal Mammogram. Due on due Goal DEXA Scan. Due on due Goal Sigmoidoscopy. Due on due Goal PAP. Due on due Goal Lipid Panel. Due on 011 due Goal Influenza vaccine. Due on due Goal Pneumococcal vaccine. Due on due Goal Td vaccine. Due on 13 due Goal Diabetes Screening. Due on due Goal FOBT. Due on due Goal Breast exam. 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 Due on due Goal H&P. Due on due History Of Present Illness Encounter Date Complaint History Of Prese nt Illness No Information Functional Status Date Functional Assessmen t No Information Instructions Date Instruction Additional Infor mation No Information Assessments Type Assessment Date No Information Patient Care Teams Name Effective Dates (start - stop) Status Members No Information
--- OUTSIDE RECORDS SUMMARY | 2024-11-14 18:32 | XMS_ITS | Encounter Summary ---
[facility] Organization [facility] Address [address] [place] [address] Care Team Providers Care Shank Breaker Name Role Phone Alison Ramso MD Primary Care Provider Reason for Visit * Reason Comments Dizziness general weakness Headache Pt complains of weak ness, dizziness, and headache x1 week. Encounter Details Date Type Department Care Team (Late st Contact Info) Description 11/14/2024 6:32 PM CDT - 11/14/2024 9:59 PM CDT Emergency [facility] Emergency Medicine [address] [facility] [address] [place] [id number] Kvng Nolan MD [address] [place] [address] [place] [phone] Colitis (Primary Dx) Discharge Disposition: Home or Self Care Social History Tobacco Use Types Packs/Day Years Used Date Smoking Tobacco: Former Cigarettes Smokeless Tobacco: Never Alcohol Use Standard Drinks/Week Comments Not Currently 0 (1 standard drink = 0.6 oz pur e alcohol) Feeling Safe Answer Date Recorded Are you in a relationship wi th someone who hurts you emotionally and/or physically? No 11/14/2024 Food Insecurity Answer Date Recorded Patient needs follow up regardin 07/19/2024 Transportation Needs Answer Date Record ed Patient needs follow up regardin 07/19/2024 Utility Needs Answer Date Recorded Patient needs follow up regardin 07/19/2024 Comments No Sex and Gender Information Value Date Recorded Sex Assigned at Not on file Legal Sex Female 11:31 PM [employer] Gender Identity Not on file Sexual Orientation Not on file documented as of this encounter Last Filed Vital Signs Vital Sign Reading Time Taken Comments Blood Pressure 159/76 11/14/2024 9:53 PM CDT Pulse 93 11/14/2024 9:53 PM CDT Temperature 37 C (98.6 F) 11/14/2024 6:34 PM CDT Respiratory Rate 16 11/14/2024 9:53 PM CDT Oxygen Saturation 93% 11/14/2024 9:53 PM CDT Inhaled Oxygen Concentration - - Weight 68.9 kg (152 lb) 11/14/2024 6:34 PM CDT Height 167.6 cm (5' 6 ) 11/14/2024 6:34 PM CDT Body Mass Index 24.53 11/14/2024 6:34 PM CDT documented in this encounter Discharge Instructions * Attachments The following attachments cannot be sent through Care Everywhere. * Colitis (Japanese) * Amoxicillin and Clavulanic Acid (Japanese) documented in this encounter Medications at Time of Discharge amoxicillin-clavula yossi (AUGMENTIN) 875-125 mg tablet Take 1 Tablet by mouth every 12 hours for 10 days. 20 Tablet 11/14/2024 11/25/19 HYDROcodone-acetami nophen (NORCO) 10-325 mg TabletIndications:P rimary osteoarthritis involving multiple joints Take 1 Tablet by mouth every 8 hours as needed for Pain, Moderate. Max Daily Amount: 3 Tablets 90 Tablet 11/07/2024 3:20 PM CDT 11/07/2024 sucralfate (CARAFATE) 1 gram tablet Take 1 Gram by mouth 4 times daily before meals and at bedtime. olopatadine 0.7 % Drops Administer 1 Drop in both eyes once to twice daily as needed for allergy. 5 mL 2 10/07/2024 apixaban (ELIQUIS) 2.5 mg tablet Take 1 Tablet (2.5 mg) by mouth 2 times daily. 60 Tablet 6 10/07/2024 ferrous sulfate (Iron) 325 mg (65 mg iron) tablet Take 1 Tablet (325 mg) by mouth daily. 90 Tablet 3 09/08/2024 naloxone (NARCAN) 4 mg/spray [place], Non-Aerosol EMERGENCY USE ONLY: Administer 1 spray (4 mg) in one nostril one time. May repeat in alternating nostrils every 2-3 min until responsive or EMS arrives. 2 Each 3 08/27/2024 nystatin (MYCOSTATIN) 100,000 unit/gram Ointment Apply topically to affected area 2 times daily. 30 Gram 2 08/09/2024 2:54 PM CDT 08/09/2024 promethazine-dextro methorphan (PHENERGAN-DM) 6.25-15 mg/5 mL syrup Take 5-10 mL by mouth every 8 hours as needed for cough. 473 mL 08/09/2024 pantoprazole (PROTONIX) 40 mg Tablet, Delayed Release (E.C.) Take 1 Tablet (40 mg) by mouth 2 times daily. 60 Tablet 1 07/20/2024 fluticasone propionate (FLONASE) 50 mcg/spray [place], Suspension nasal inhaler Administer 2 Sprays in each nostril daily. 16 Gram 06/17/2024 nystatin (MYCOSTATIN) 100,000 unit/gram Cream Apply 1 APPLICATION Topically Three times a day 60 Gram 1 04/13/2024 3:07 PM [employer] 04/13/2024 lidocaine (Lidoderm) 5 % Adhesive Patch, Medicated Apply 1-2 Patches to affected area daily. 60 Patch 3 03/11/2024 busPIRone (BUSPAR) 5 mg tablet Take 1 Tablet (5 mg) by mouth 2 times daily for anxiety. 60 Tablet 5 02/01/2024 10:34 AM [employer] 02/01/2024 diclofenac sodium (VOLTAREN) 1 % gel Apply 2 Grams to affected area 3 times daily to joint for arthritis. 300 Gram 5 02/01/2024 digoxin (LANOXIN) 125 mcg (0.125 mg) tablet Take 125 mcg by mouth daily. mirabegron (Myrbetriq) 50 mg Extended Release 24 hour tablet Take 50 mg by mouth daily. levothyroxine 88 mcg tablet Take 88 mcg by mouth daily in the morning. furosemide (LASIX) 20 mg tablet Take 20 mg by mouth daily. gabapentin (NEURONTIN) 600 mg tablet Take 600 mg by mouth 3 times daily. loratadine (CLARITIN) 10 mg tablet Take 10 mg by mouth daily. pravastatin (PRAVACHOL) 20 mg tablet Take 20 mg by mouth daily. traZODone (DESYREL) 50 mg tablet Take 50 mg by mouth daily at bedtime. cholecalciferol, vitamin D3, (VITAMIN D3 ORAL) Take 50,000 Units by mouth every 7 days. DULoxetine (CYMBALTA) 60 mg Capsule, Delayed Release(E.C.) Take 60 mg by mouth daily. hydrOXYzine HCL (ATARAX) 25 mg tablet Take 25 mg by mouth daily at bedtime. albuterol sulfate HFA 90 mcg/actuation aerosol inhaler Take 2 Puffs by inhalation every 4 hours as needed for Shortness of Breath. nitroglycerin (NITROSTAT) 0.4 mg Tablet, Sublingual Place 0.4 mg under tongue every 5 minutes as needed for Chest Pain. potassium chloride (KLOR-CON) 20 mEq Extended Release tablet Take 20 mEq by mouth late in the day. donepeziL (ARICEPT) 5 mg tablet Take 10 mg by mouth daily. sod.chlorid/potassi um chloride (THERMOTABS ORAL) Take 1 Tablet by mouth daily. lisinopriL (PRINIVIL) 10 mg tablet Take 10 mg by mouth 2 times daily. tiZANidine (ZANAFLEX) 2 mg Tablet Take 2 mg by mouth 2 times daily as needed for Spasm. diltiaZEM (TIAZAC) 180 mg Extended Release capsule Take 180 mg by mouth daily. amLODIPine (NORVASC) 10 mg tablet Take 10 mg by mouth daily. triamcinolone acetonide (KENALOG) 0.1 % Lotion Apply to affected area 3 times daily as needed. ondansetron (ZOFRAN) 8 mg Tablet Take 8 mg by mouth every 8 hours as needed for Nausea/Emesis. apixaban (ELIQUIS ORAL) Take 5 mg by mouth 2 times daily. documented as of this encounter ED Notes * Susanne Hernandez RCP - 11/14/2024 8:12 PM CDT EKG completed. Results given to Dr. Nolan and scanned into [employer]. * Melissa Stout RN - 11/14/2024 6:50 PM CDT Pt arrives to the ED via POV accompanied by spouse with complaints of weakness, dizziness, and headache x1 week. Pt reports that symptoms have progressively gotten worse and that dizziness worsens with changes of position. Pt denies numbness/tingling or vision changes. Pt states that she stumbled yesterday but denies hitting her head. Pt is currently taking Eliquis. Pt denies changes to bowel/bladder pattern. Last bowel movement yesterday. * Kvng Nolan MD - 11/14/2024 6:22 PM CDT HISTORY OF PRESENT ILLNESS Arielle Venkat Vences, a 83 y.o. female presents to the ED with a Chief Complaint of Dizziness, general weakness, and Headache Subjective This patient is an 83-year-old white female who presents to the emergency department with dizzinessand weakness. She complains of headaches and she has been having some abdominal pain. No known fever. No nausea or vomiting. No diarrhea. No urinary symptoms. REVIEW OF SYSTEMS Review of Systems Constitutional: Negative for activity change, appetite change, chills, diaphoresis, fatigue and fever. HENT: Negative for congestion, dental problem, ear pain, postnasal drip, rhinorrhea, sinus pressure, sore throat, tinnitus and trouble swallowing. Eyes: Negative for photophobia, pain, discharge, redness and visual disturbance. Respiratory: Negative for cough, chest tightness, shortness of breath and wheezing. Cardiovascular: Negative for chest pain, palpitations and leg swelling. Gastrointestinal: Positive for abdominal pain. Negative for abdominal distention, blood in stool, constipation, diarrhea, nausea and vomiting. Genitourinary: Negative for decreased urine volume, difficulty urinating, dyspareunia, dysuria, flank pain, frequency, hematuria, menstrual problem, pelvic pain, urgency, vaginal bleeding and vaginaldischarge. Musculoskeletal: Negative for arthralgias, back pain, gait problem, joint swelling, myalgias, neck pain and neck stiffness. Skin: Negative for color change and rash. Neurological: Positive for dizziness, weakness and headaches. Negative for seizures, speech difficulty, light-headedness and numbness. Hematological: Negative for adenopathy. Psychiatric/Behavioral: Negative for agitation, behavioral problems, confusion, dysphoric mood, hallucinations, self-injury, sleep disturbance and suicidal ideas. The patient is not nervous/anxious. All other systems reviewed and are negative. PAST MEDICAL HISTORY REVIEWED MEDICAL: Patient has a past medical history of Atrial fibrillation (CMS/[facility]), Emphysema of lung (CMS/HCC), HTN (hypertension), Pneumonia due to infectious organism, and Urinary tract infection, site not specified. SURGICAL: Patient has a past surgical history that includes foot surgery (Left); hysterectomy; and esophagogastroduodenoscopy (N/A, 07/18/2024). FAMILY: Patient's family history is not on file. SOCIAL: reports that she has quit smoking. Her smoking use included cigarettes. She has never used smokeless tobacco. She reports that she does not currently use alcohol. She reports that she does not currently use drugs. No history on file. Social History Other Topics Concern Not on file ALLERGIES Patient has no known allergies. HOME MEDICATIONS Discharge Medication List as of 11/14/2024 9:47 PM START taking these medications Details amoxicillin-clavulanate (AUGMENTIN) 875-125 mg tablet Take 1 Tablet by mouth every 12 hours for 10 days., Disp-20 Tablet, R-0 CONTINUE these medications which have NOT CHANGED Details HYDROcodone-acetaminophen (NORCO) 10-325 mg Tablet Take 1 Tablet by mouth every 8 hours as needed for Pain, Moderate. Max Daily Amount: 3 Tablets, Disp-90 Tablet, R-0 sucralfate (CARAFATE) 1 gram tablet Take 1 Gram by mouth 4 times daily before meals and at bedtime. olopatadine 0.7 % Drops Administer 1 Drop in both eyes once to twice daily as needed for allergy., Disp-5 mL, R-2 !! apixaban (ELIQUIS) 2.5 mg tablet Take 1 Tablet (2.5 mg) by mouth 2 times daily., Disp-60 Tablet,R-6 ferrous sulfate (Iron) 325 mg (65 mg iron) tablet Take 1 Tablet (325 mg) by mouth daily., Disp-90 Tablet, R-3 naloxone (NARCAN) 4 mg/spray [place], Non-Aerosol EMERGENCY USE ONLY: Administer 1 spray (4 mg) in one nostril one time. May repeat in alternating nostrils every 2-3 min until responsive or EMS arrives., Disp-2 Each, R-3 nystatin (MYCOSTATIN) 100,000 unit/gram Ointment Apply topically to affected area 2 times daily., Disp-30 Gram, R-2 promethazine-dextromethorphan (PHENERGAN-DM) 6.25-15 mg/5 mL syrup Take 5-10 mL by mouth every 8 hours as needed for cough., Disp-473 mL, R-0 pantoprazole (PROTONIX) 40 mg Tablet, Delayed Release (E.C.) Take 1 Tablet (40 mg) by mouth 2 timesdaily., Disp-60 Tablet, R-1 fluticasone propionate (FLONASE) 50 mcg/spray [place], Suspension nasal inhaler Administer 2 Sprays in each nostril daily., Disp-16 Gram, R-0 nystatin (MYCOSTATIN) 100,000 unit/gram Cream Apply 1 APPLICATION Topically Three times a day, Disp-60 Gram, R-1 lidocaine (Lidoderm) 5 % Adhesive Patch, Medicated Apply 1-2 Patches to affected area daily., Disp-60 Patch, R-3 busPIRone (BUSPAR) 5 mg tablet Take 1 Tablet (5 mg) by mouth 2 times daily for anxiety., Disp-60 Tablet, R-5 diclofenac sodium (VOLTAREN) 1 % gel Apply 2 Grams to affected area 3 times daily to joint for arthritis., Disp-300 Gram, R-5 digoxin (LANOXIN) 125 mcg (0.125 mg) tablet Take 125 mcg by mouth daily. mirabegron (Myrbetriq) 50 mg Extended Release 24 hour tablet Take 50 mg by mouth daily. levothyroxine 88 mcg tablet Take 88 mcg by mouth daily in the morning. furosemide (LASIX) 20 mg tablet Take 20 mg by mouth daily. gabapentin (NEURONTIN) 600 mg tablet Take 600 mg by mouth 3 times daily. loratadine (CLARITIN) 10 mg tablet Take 10 mg by mouth daily. pravastatin (PRAVACHOL) 20 mg tablet Take 20 mg by mouth daily. traZODone (DESYREL) 50 mg tablet Take 50 mg by mouth daily at bedtime. cholecalciferol, vitamin D3, (VITAMIN D3 ORAL) Take 50,000 Units by mouth every 7 days. DULoxetine (CYMBALTA) 60 mg Capsule, Delayed Release(E.C.) Take 60 mg by mouth daily. hydrOXYzine HCL (ATARAX) 25 mg tablet Take 25 mg by mouth daily at bedtime. albuterol sulfate HFA 90 mcg/actuation aerosol inhaler Take 2 Puffs by inhalation every 4 hours as needed for Shortness of Breath. nitroglycerin (NITROSTAT) 0.4 mg Tablet, Sublingual Place 0.4 mg under tongue every 5 minutes as needed for Chest Pain. potassium chloride (KLOR-CON) 20 mEq Extended Release tablet Take 20 mEq by mouth late in the day.Paused since Thu07/20/2024 until manually resumed donepeziL (ARICEPT) 5 mg tablet Take 10 mg by mouth daily. sod.chlorid/potassium chloride (THERMOTABS ORAL) Take 1 Tablet by mouth daily. lisinopriL (PRINIVIL) 10 mg tablet Take 10 mg by mouth 2 times daily. tiZANidine (ZANAFLEX) 2 mg Tablet Take 2 mg by mouth 2 times daily as needed for Spasm. diltiaZEM (TIAZAC) 180 mg Extended Release capsule Take 180 mg by mouth daily. amLODIPine (NORVASC) 10 mg tablet Take 10 mg by mouth daily. triamcinolone acetonide (KENALOG) 0.1 % Lotion Apply to affected area 3 times daily as needed. ondansetron (ZOFRAN) 8 mg Tablet Take 8 mg by mouth every 8 hours as needed for Nausea/Emesis. !! apixaban (ELIQUIS ORAL) Take 5 mg by mouth 2 times daily.Paused since Thu07/20/2024 until manually resumed !! - Potential duplicate medications found. Please discuss with provider. STOP taking these medications predniSONE (DELTASONE) 5 mg tablet Comments: Reason for Stopping: umeclidinium brm/vilanterol tr (ANORO ELLIPTA INHALATION) Comments: Reason for Stopping: montelukast (SINGULAIR) 10 mg tablet Comments: Reason for Stopping: Objective PHYSICAL EXAM INITIAL VS BP: 115/72 (11/14/241833), Heart Rate: 78 bpm (11/14/241833), Resp: 16 (11/14/241833), Pulse: 78(11/14/241833), Temp: 98.6 ??F (37 ??C) (11/14/241833), Temp src: Oral (11/14/241833), SpO2: 93 % (11/14/241833), Height: 5' 6 (167.6 cm) (08/25/25 1834), Weight: 68.9 kg (152 lb) (11/14/241833), BMI (Calculated): 24.53 (11/14/241833) No LMP recorded. Patient has had a hysterectomy. Physical Exam Vitals and nursing note reviewed. Constitutional: General: She is not in acute distress. Appearance: She is well-developed. HENT: Head: Normocephalic and atraumatic. Eyes: Conjunctiva/sclera: Conjunctivae normal. Pupils: Pupils are equal, round, and reactive to light. Cardiovascular: Rate and Rhythm: Normal rate and regular rhythm. Heart sounds: Normal heart sounds. Pulmonary: Effort: Pulmonary effort is normal. No respiratory distress. Breath sounds: Normal breath sounds. Abdominal: General: Bowel sounds are normal. Palpations: Abdomen is soft. Tenderness: There is abdominal tenderness. There is no guarding or rebound. Comments: Mild diffuse tenderness. Musculoskeletal: General: No tenderness. Normal range of motion. Cervical back: Normal range of motion and neck supple. Skin: General: Skin is warm and dry. Neurological: Mental Status: She is alert and oriented to person, place, and time. Cranial Nerves: No cranial nerve deficit. Psychiatric: Behavior: Behavior normal. Thought Content: Thought content normal. DIAGNOSTICS LAB: CBC WITH DIFFERENTIAL - Abnormal Result Value WBC 7.1 RBC 4.15 HEMOGLOBIN 8.9 (*) HEMATOCRIT 29.9 (*) MCV 72.0 (*) MCH 21.4 (*) MCHC 29.8 (*) RDW 20.2 (*) RDW-STDEV 52.0 PLATELETS 237 MPV 9.6 (*) NEUTROPHILS 67 LYMPHOCYTES 14 (*) MONOCYTES 11 EOSINOPHILS 8 (*) BASOPHILS 1 IMMATURE GRANULOCYTES 0 NEUTROPHIL ABSOLUTE 4.71 LYMPHOCYTE ABSOLUTE 0.97 (*) MONOCYTE ABSOLUTE 0.77 (*) EOSINOPHIL ABSOLUTE 0.53 (*) BASOPHILS ABSOLUTE 0.06 IMMATURE GRANULOCYTES ABSOLUTE 0.02 COMPREHENSIVE METABOLIC PANEL - Abnormal SODIUM 135 (*) POTASSIUM 4.0 CHLORIDE 99 CO2 26 CALCIUM 10.2 BUN 12 CREATININE 1.08 (*) GLUCOSE 80 TOTAL PROTEIN 7.2 ALBUMIN 4.3 BILIRUBIN TOTAL 0.4 ALKALINE PHOSPHATASE 79 AST 25 ALT 9 GFR 52 ANION GAP 10 URINALYSIS WITH REFLEX MICROSCOPIC - Abnormal COLOR UA Yellow CLARITY UA Clear SPECIFIC GRAVITY UA 1.010 PH UA 5.5 LEUKOCYTE ESTERASE UA Negative NITRITE UA Negative PROTEIN UA Negative GLUCOSE UA 3+ (*) KETONES UA Negative UROBILINOGEN UA 0.2 BILIRUBIN UA Negative BLOOD UA Negative LIPASE - Normal LIPASE 51 LACTIC ACID - Normal LACTIC ACID 1.4 MANUAL DIFFERENTIAL PLATELET EST. Consistent w Count ANISOCYTOSIS 1+ MICROCYTES 1+ HYPOCHROMIA 1+ RADIOLOGY: CT ABDOMEN PELVIS WO CONTRAST Radiologist Impression IMPRESSION: 1. Diffuse colonic wall thickening and pericolonic stranding, consistent with infectious/inflammatory colitis. MACRO: None EKG: PROCEDURES Procedures MEDICAL DECISION MAKING AND PLAN OF CARE Medical Decision Making EKG revealed atrial fibrillation at a rate of 88. No ST segment changes. Patient does have history of chronic atrial fibrillation. CBC reveals a hemoglobin of 8.9 and this is chronic. CMP was normal.Lactic acid 1.4. Lipase 51. Urinalysis normal. CT scan of the abdomen pelvis was read by the radiologist as colitis. Patient was given a liter of normal saline. She was discharged in stable conditionwith a prescription for Augmentin and she was given her first dose in the emergency department. Shedoes have Zofran at home for the nausea. Recommended she push fluids and get some rest. Follow-up with her primary care physician within 1 week for recheck. Amount and/or Complexity of Data Reviewed Labs: ordered. Radiology: ordered. ECG/medicine tests: ordered. Risk Prescription drug management. Clinical Scoring & Consults Medications Administered During the ED Stay from 11/14/2024 1823 to 11/14/2024 2313 Date/Time Order Dose Route Action 11/14/20242047 CDT sodium chloride 0.9 % bolus solution 1,000 mL 0 mL IV Stopped 11/14/20242017 CDT sodium chloride 0.9 % bolus solution 1,000 mL 1,000 mL IV New Bag 11/14/2024 210 CDT ondansetron (ZOFRAN) 4 mg/2 mL injection 4 mg 4 mg IV Given 11/14/2024 2154 CDT amoxicillin-clavulanate (AUGMENTIN) 875-125 mg per tablet 1 Tablet 1 Tablet Oral Given Discharge Medication List as of 11/14/2024 9:47 PM START taking these medications Details amoxicillin-clavulanate (AUGMENTIN) 875-125 mg tablet Take 1 Tablet by mouth every 12 hours for 10 days., Disp-20 Tablet, R-0 CONTINUE these medications which have NOT CHANGED Details HYDROcodone-acetaminophen (NORCO) 10-325 mg Tablet Take 1 Tablet by mouth every 8 hours as needed for Pain, Moderate. Max Daily Amount: 3 Tablets, Disp-90 Tablet, R-0 sucralfate (CARAFATE) 1 gram tablet Take 1 Gram by mouth 4 times daily before meals and at bedtime. olopatadine 0.7 % Drops Administer 1 Drop in both eyes once to twice daily as needed for allergy., Disp-5 mL, R-2 !! apixaban (ELIQUIS) 2.5 mg tablet Take 1 Tablet (2.5 mg) by mouth 2 times daily., Disp-60 Tablet,R-6 ferrous sulfate (Iron) 325 mg (65 mg iron) tablet Take 1 Tablet (325 mg) by mouth daily., Disp-90 Tablet, R-3 naloxone (NARCAN) 4 mg/spray [place], Non-Aerosol EMERGENCY USE ONLY: Administer 1 spray (4 mg) in one nostril one time. May repeat in alternating nostrils every 2-3 min until responsive or EMS arrives., Disp-2 Each, R-3 nystatin (MYCOSTATIN) 100,000 unit/gram Ointment Apply topically to affected area 2 times daily., Disp-30 Gram, R-2 promethazine-dextromethorphan (PHENERGAN-DM) 6.25-15 mg/5 mL syrup Take 5-10 mL by mouth every 8 hours as needed for cough., Disp-473 mL, R-0 pantoprazole (PROTONIX) 40 mg Tablet, Delayed Release (E.C.) Take 1 Tablet (40 mg) by mouth 2 timesdaily., Disp-60 Tablet, R-1 fluticasone propionate (FLONASE) 50 mcg/spray [place], Suspension nasal inhaler Administer 2 Sprays in each nostril daily., Disp-16 Gram, R-0 nystatin (MYCOSTATIN) 100,000 unit/gram Cream Apply 1 APPLICATION Topically Three times a day, Disp-60 Gram, R-1 lidocaine (Lidoderm) 5 % Adhesive Patch, Medicated Apply 1-2 Patches to affected area daily., Disp-60 Patch, R-3 busPIRone (BUSPAR) 5 mg tablet Take 1 Tablet (5 mg) by mouth 2 times daily for anxiety., Disp-60 Tablet, R-5 diclofenac sodium (VOLTAREN) 1 % gel Apply 2 Grams to affected area 3 times daily to joint for arthritis., Disp-300 Gram, R-5 digoxin (LANOXIN) 125 mcg (0.125 mg) tablet Take 125 mcg by mouth daily. mirabegron (Myrbetriq) 50 mg Extended Release 24 hour tablet Take 50 mg by mouth daily. levothyroxine 88 mcg tablet Take 88 mcg by mouth daily in the morning. furosemide (LASIX) 20 mg tablet Take 20 mg by mouth daily. gabapentin (NEURONTIN) 600 mg tablet Take 600 mg by mouth 3 times daily. loratadine (CLARITIN) 10 mg tablet Take 10 mg by mouth daily. pravastatin (PRAVACHOL) 20 mg tablet Take 20 mg by mouth daily. traZODone (DESYREL) 50 mg tablet Take 50 mg by mouth daily at bedtime. cholecalciferol, vitamin D3, (VITAMIN D3 ORAL) Take 50,000 Units by mouth every 7 days. DULoxetine (CYMBALTA) 60 mg Capsule, Delayed Release(E.C.) Take 60 mg by mouth daily. hydrOXYzine HCL (ATARAX) 25 mg tablet Take 25 mg by mouth daily at bedtime. albuterol sulfate HFA 90 mcg/actuation aerosol inhaler Take 2 Puffs by inhalation every 4 hours as needed for Shortness of Breath. nitroglycerin (NITROSTAT) 0.4 mg Tablet, Sublingual Place 0.4 mg under tongue every 5 minutes as needed for Chest Pain. potassium chloride (KLOR-CON) 20 mEq Extended Release tablet Take 20 mEq by mouth late in the day.Paused since Thu07/20/2024 until manually resumed donepeziL (ARICEPT) 5 mg tablet Take 10 mg by mouth daily. sod.chlorid/potassium chloride (THERMOTABS ORAL) Take 1 Tablet by mouth daily. lisinopriL (PRINIVIL) 10 mg tablet Take 10 mg by mouth 2 times daily. tiZANidine (ZANAFLEX) 2 mg Tablet Take 2 mg by mouth 2 times daily as needed for Spasm. diltiaZEM (TIAZAC) 180 mg Extended Release capsule Take 180 mg by mouth daily. amLODIPine (NORVASC) 10 mg tablet Take 10 mg by mouth daily. triamcinolone acetonide (KENALOG) 0.1 % Lotion Apply to affected area 3 times daily as needed. ondansetron (ZOFRAN) 8 mg Tablet Take 8 mg by mouth every 8 hours as needed for Nausea/Emesis. !! apixaban (ELIQUIS ORAL) Take 5 mg by mouth 2 times daily.Paused since Thu07/20/2024 until manually resumed !! - Potential duplicate medications found. Please discuss with provider. STOP taking these medications predniSONE (DELTASONE) 5 mg tablet Comments: Reason for Stopping: umeclidinium brm/vilanterol tr (ANORO ELLIPTA INHALATION) Comments: Reason for Stopping: montelukast (SINGULAIR) 10 mg tablet Comments: Reason for Stopping: LAST VS BP: (!) 159/76 (11/14/242152), Heart Rate: 93 bpm (11/14/242152), Resp: 16 (11/14/242152), Pulse: 93 (11/14/242152), Temp: 98.6 ??F (37 ??C) (11/14/241833), Temp src: Oral (11/14/241833), SpO2:93 % (11/14/242152) CLINICAL IMPRESSION Diagnosis Diagnosis Comment Added By Time Added Colitis [K52.9] Kvng Nolan MD 11/14/2024 9:37 PM DISPOSITION, EDUCATION AND MEDICATION RECONCILIATION Medications reconciled. See after visit summary for patient education on discharged patients. ED Disposition ED Disposition Discharge Condition Stable User Kvng Nolan MD Date/Time ThuNov 14, 2024 9:37 PM Comment -- ATTESTATION STATEMENTS documented in this encounter Miscellaneous Notes * Gen AI DIPTI - GENERATIVE AI HANDOFF NOTE - 11/15/2024 11:39 PM CDT ## ER_course: ## # DIAGNOSIS: Colitis. The patient, Arielle Vences, an 83-year-old female, presented to the ED with complaints of dizziness, general weakness, and headache for one week. She also reported abdominal pain. The dizziness worsened with changes in position. The patient has a history of atrial fibrillation and is currently on Eliquis. # During the ER visit, the following abnormalities were noted: Hemoglobin was low at 8.9, indicating chronic anemia. The CT scan of the abdomen and pelvis showed diffuse colonic wall thickening and pericolonic stranding, consistent with infectious/inflammatory colitis. The EKG revealed atrial fibrillation at a rate of [address] segment changes. The patient was administered a liter of normal saline and given a dose of Augmentin in the ED. Ondansetron was also administered for nausea. ## Follow_up_orders: ## # The patient was discharged with a prescription for Augmentin 875-125 mg to be taken every 12 hours for 10 days. # Follow-up with the primary care physician is recommended within one week for a recheck. # The patient is advised to push fluids and get some rest. ## Home_Situation: ## # No specific factors potentially impairing follow-up care were noted in the ER documentation. The patient was accompanied by her spouse, indicating some level of caregiver support. documented in this encounter Plan of Treatment Upcoming Encounters Date Type Department Care Team (Late st Contact Info) Description 12/07/2024 9:00 AM CDT Office Visit [facility] [place] [address] [place] [address] [place] [phone] Alison Ramos MD [address] [facility] [place] [address] [place] [address] 01/09/2025 9:30 AM CDT Office Visit [facility] [place] [address] [place] [address] [place] [phone] Alison Ramos MD [address] [place] [phone] documented as of this encounter Procedures Procedure Name Priority Date/Time Associated Diagnosis Comments CT ABDOMEN PELVIS WO CONTRAST Stat 11/14/2024 8:02 PM CDT URINALYSIS W/REFLEX MICROSCOPIC Stat 11/14/2024 7:05 PM CDT DIFFERENTIAL, MANUAL Stat 11/14/2024 6:42 PM CDT LACTIC ACID Stat 11/14/2024 6:42 PM CDT CBC WITH DIFFERENTIAL Stat 11/14/2024 6:42 PM CDT LIPASE Stat 11/14/2024 6:42 PM CDT COMPREHENSIVE METABOLIC PANEL Stat 11/14/2024 6:42 PM CDT documented in this encounter Results * CT ABDOMEN PELVIS WO CONTRAST (11/14/2024 8:02 PM CDT) Anatomical Region Laterality Modality Abdomen Computed Tomogra phy 11/14/2024 7:39 PM CDT Impressions 11/14/2024 9:10 PM CDT IMPRESSION: 1. Diffuse colonic wall thickening and pericolonic stranding, consistent with infectious/inflammatory colitis. MACRO: None Narrative 11/14/2024 9:10 PM CDT EXAMINATION: CT ABDOMEN PELVIS WO CONTRAST CLINICAL HISTORY: ASSOCIATED DIAGNOSIS: Abdominal pain, acute, nonlocalized ORDERING PROVIDER: [employer] N[employer] NOTE: COMPARISON: CT abdomen/pelvis 10/18/2004 TECHNIQUE: Contiguous axial images were obtained through the abdomen and pelvis from the level of the diaphragmatic domes through the pubic symphysis. MPR sagittal and coronal reconstructions were obtained from the axial data. INTRA-PROCEDURE MEDS: FINDINGS: Included images of the lower thorax: No focal lung consolidation or pleural effusion. Hepatobiliary: Unremarkable liver without biliary dilation evident. Gallstones are present. There is no CT evidence for acute cholecystitis. Pancreas: Left Bochdalek hernia. Spleen: Granulomatous calcifications are present within the spleen. Adrenal Glands: Unremarkable Kidneys, ureters, and bladder: No calculi or hydroureteronephrosis. Abdominal and pelvic vasculature: Atherosclerotic wall calcifications are present without aneurysm. GI tract: Diffuse colonic thickening and pericolonic stranding. No evidence of obstruction. The appendix is within normal limits. Colonic diverticulosis. Peritoneum and retroperitoneum: No free fluid or free air. Lymph Nodes: No lymphadenopathy. Uterus and adnexa: Status post hysterectomy. Visualized musculoskeletal structures: Subacute/chronic left posterior rib fractures are partially visualized. No destructive osseous lesion. Degenerative changes of the lumbar spine with moderate levocurvature of the lumbar spine. Stable compression deformities of T12 and L2. Procedure Note Marek Gray MD - 11/14/2024 EXAMINATION: CT ABDOMEN PELVIS WO CONTRAST CLINICAL HISTORY: ASSOCIATED DIAGNOSIS: Abdominal pain, acute, nonlocalized ORDERING PROVIDER: [employer] NOTE: COMPARISON: CT abdomen/pelvis 10/18/2004 TECHNIQUE: Contiguous axial images were obtained through the abdomen and pelvis from the level of the diaphragmatic domes through the pubic symphysis. MPR sagittal and coronal reconstructions were obtained from the axial data. INTRA-PROCEDURE MEDS: FINDINGS: Included images of the lower thorax: No focal lung consolidation or pleural effusion. Hepatobiliary: Unremarkable liver without biliary dilation evident. Gallstones are present. There is no CT evidence for acute cholecystitis. Pancreas: Left Bochdalek hernia. Spleen: Granulomatous calcifications are present within the spleen. Adrenal Glands: Unremarkable Kidneys, ureters, and bladder: No calculi or hydroureteronephrosis. Abdominal and pelvic vasculature: Atherosclerotic wall calcifications are present without aneurysm. GI tract: Diffuse colonic thickening and pericolonic stranding. No evidence of obstruction. The appendix is within normal limits. Colonic diverticulosis. Peritoneum and retroperitoneum: No free fluid or free air. Lymph Nodes: No lymphadenopathy. Uterus and adnexa: Status post hysterectomy. Visualized musculoskeletal structures: Subacute/chronic left posterior rib fractures are partially visualized. No destructive osseous lesion. Degenerative changes of the lumbar spine with moderate levocurvature of the lumbar spine. Stable compression deformities of T12 and L2. IMPRESSION: 1. Diffuse colonic wall thickening and pericolonic stranding, consistent with infectious/inflammatory colitis. MACRO: None us Kvng Nolan MD CT ORDERABLES Final Re sult * (ABNORMAL) URINALYSIS WITH REFLEX MICROSCOPIC (11/14/2024 7:05 PM CDT) COLOR UA Yellow Pale to Dark Yellow 11/14/2024 7:55 PM CDT [facility] CLARITY UA Clear Clear 11/14/2024 7:55 PM CDT [facility] SPECIFIC GRAVITY UA 1.010 1.003 - 1.035 11/14/2024 7:55 PM CDT [facility] PH UA 5.5 5.0 - 8.0 11/14/2024 7:55 PM CDT [facility] LEUKOCYTE ESTERASE UA Negative Negative 11/14/2024 7:55 PM CDT [facility] NITRITE UA Negative Negative 11/14/2024 7:55 PM CDT [facility] PROTEIN UA Negative Negative 11/14/2024 7:55 PM CDT [facility] GLUCOSE UA 3+(A) Negative 11/14/2024 7:55 PM CDT [facility] KETONES UA Negative Negative 11/14/2024 7:55 PM CDT [facility] UROBILINOGEN UA 0.2 <2.0 mg/dL 7:55 PM CDT [facility] BILIRUBIN UA Negative Negative 11/14/2024 7:55 PM CDT [facility] BLOOD UA Negative Negative 11/14/2024 7:55 PM CDT [facility] Urine URINE SPECIMEN OBTAINED BY CLEAN CATCH PROCEDURE / Unknown Collection / Unknown 11/14/2024 7:05 PM CDT 11/14/2024 7:52 PM CDT us Kvng Nolan MD URINE ORDERABLES Final R esult [facility] CLIA # [id number] [address] [place] [id number] * MANUAL DIFFERENTIAL (11/14/2024 6:42 PM CDT) PLATELET EST. Consistent w Count 11/14/2024 7:42 PM CDT [facility] ANISOCYTOSIS 1+ /hpf 11/14/2024 7:42 PM CDT [facility] MICROCYTES 1+ /hpf 11/14/2024 7:42 PM CDT [facility] HYPOCHROMIA 1+ /hpf 11/14/2024 7:42 PM CDT [facility] Blood Collection / Unknown 11/14/2024 6:42 PM CDT 11/14/2024 7:33 PM CDT Kvng Nolan MD HEMATOLOGY ORDERABLES CO M Final Result [facility] CLIA # [id number] [address] [place] [address] [phone] * LACTIC ACID (11/14/2024 6:42 PM CDT) LACTIC ACID 1.4 <=2.0 mmol/L 11/14/2024 7:46 PM CDT [facility] Blood BLOOD SPECIMEN / Unknown Collection / Unknown 11/14/2024 6:42 PM CDT 11/14/2024 7:33 PM CDT us Kvng Nolan MD CHEMISTRY ORDERABLES Fin al Result Performing Organization Address City/[facility]/ZIP Co de Phone Number [facility] CLIA # [id number] [address] [place] [address] [phone] * LIPASE (11/14/2024 6:42 PM CDT) LIPASE 51 13 - 60 U/L 11/14/2024 7:50 PM CDT [facility] Blood Collection / Unknown 11/14/2024 6:42 PM CDT 11/14/2024 7:33 PM CDT Kvng Nolan MD CHEMISTRY ORDERABLES Fin al Result [facility] CLIA # [id number] [address] [place] [phone] * (ABNORMAL) COMPREHENSIVE METABOLIC PANEL (11/14/2024 6:42 PM CDT) SODIUM 135(L) 136 - 145 mmol/L 11/14/2024 7:50 PM [facility] POTASSIUM 4.0 3.5 - 5.1 mmol/L 11/14/2024 7:50 PM [facility] CHLORIDE 99 98 - 107 mmol/L 11/14/2024 7:50 PM [facility] CO2 26 22 - 29 mmol/L 11/14/2024 7:50 PM [facility] CALCIUM 10.2 8.8 - 10.2 mg/dL 11/14/2024 7:50 PM [facility] BUN 12 8 - 23 mg/dL 11/14/2024 7:50 PM [facility] CREATININE 1.08(H) 0.51 - 0.95 mg/dL 11/14/2024 7:50 PM [facility] Comment:The GFR result is no t clinically significant on patients <18 or >70 years of age. GLUCOSE 80 74 - 99 mg/dL 11/14/2024 7:50 PM [facility] TOTAL PROTEIN 7.2 6.6 - 8.7 g/dL 11/14/2024 7:50 PM [facility] ALBUMIN 4.3 3.5 - 5.2 g/dL 11/14/2024 7:50 PM [facility] BILIRUBIN TOTAL 0.4 0.0 - 1.2 mg/dL 11/14/2024 7:50 PM [facility] ALKALINE PHOSPHATASE 79 35 - 104 U/L 11/14/2024 7:50 PM [facility] AST 25 0 - 35 U/L 11/14/2024 7:50 PM [facility] ALT 9 0 - 35 U/L 11/14/2024 7:50 PM [facility] GFR 52 mL/min/1.7 3 sq meter 11/14/2024 7:50 PM [facility] Comment:eGFR calculated with 2020 CKD-EPI equation. Vegetarian diet, extremely high or low muscle mass, and may affect results. Cystatin C with Glomerular Filtration Rate is a suitable alternative for these patients. ANION GAP 10 5 - 20 mmol/L 11/14/2024 7:50 PM [facility] Blood Collection / Unknown 11/14/2024 6:42 PM CDT 11/14/2024 7:33 PM CDT us Kvng Nolan MD CHEMISTRY ORDERABLES Fin al Result [facility] CLIA # [id number] [address] [place] [phone] * (ABNORMAL) CBC WITH DIFFERENTIAL (11/14/2024 6:42 PM CDT) WBC 7.1 4.0 - 10.0 K/uL 11/14/2024 7:42 PM [facility] RBC 4.15 3.93 - 5.22 M/uL 11/14/2024 7:42 PM [facility] HEMOGLOBIN 8.9(L) 11.2 - 15.7 g/dL 11/14/2024 7:42 PM [facility] HEMATOCRIT 29.9(L) 34.1 - 44.9 % 11/14/2024 7:42 PM [facility] MCV 72.0(L) 79.4 - 94.8 fL 11/14/2024 7:42 PM [facility] MCH 21.4(L) 25.6 - 32.2 pg 11/14/2024 7:42 PM [facility] MCHC 29.8(L) 32.2 - 35.5 g/dL 11/14/2024 7:42 PM [facility] RDW 20.2(H) 11.0 - 14.5 % 11/14/2024 7:42 PM [facility] RDW-STDEV 52.0 36.9 - 56.9 fL 11/14/2024 7:42 PM [facility] PLATELETS 237 163 - 337 K/uL 11/14/2024 7:42 PM [facility] MPV 9.6(L) 10.0 - 14.8 fL 11/14/2024 7:42 PM [facility] NEUTROPHILS 67 34 - 71 % 11/14/2024 7:42 PM [facility] LYMPHOCYTES 14(L) 19 - 52 % 11/14/2024 7:42 PM [facility] MONOCYTES 11 5 - 13 % 11/14/2024 7:42 PM [facility] EOSINOPHILS 8(H) 1 - 6 % 11/14/2024 7:42 PM [facility] BASOPHILS 1 0 - 1 % 11/14/2024 7:42 PM [facility] IMMATURE GRANULOCYTES 0 % 11/14/2024 7:42 PM [facility] NEUTROPHIL ABSOLUTE 4.71 1.56 - 6.13 K/uL 11/14/2024 7:42 PM [facility] LYMPHOCYTE ABSOLUTE 0.97(L) 1.20 - 3.40 K/uL 11/14/2024 7:42 PM [facility] MONOCYTE ABSOLUTE 0.77(H) 0.24 - 0.36 K/uL 11/14/2024 7:42 PM [facility] EOSINOPHIL ABSOLUTE 0.53(H) 0.04 - 0.36 K/uL 11/14/2024 7:42 PM [facility] BASOPHILS ABSOLUTE 0.06 0.01 - 0.08 K/uL 11/14/2024 7:42 PM [facility] IMMATURE GRANULOCYTES ABSOLUTE 0.02 K/uL 11/14/2024 7:42 PM [facility] Blood Collection / Unknown 11/14/2024 6:42 PM CDT 11/14/2024 7:33 PM CDT us Kvng Nolan MD HEMATOLOGY ORDERABLES Fi nal Result [facility] CLIA # [id number] [address] [place] [phone] documented in this encounter Visit Diagnoses Diagnosis Colitis- Primary Other and unspecified noninfectious gastroenteritis and colitis documented in this encounter Administered Medications Inactive Administered Medications - up to 3 most recent administrations Medication Order MAR Action Action Date Dose Rate Site amoxicillin-clavulanate (AUGMENTIN) 875-125 mg per tablet 1 Tablet 1 Tablet, Oral, ONE TIME ONLY, 1 dose, On Thu11/14/24 at 2145, Routine, Antibiotic Indication: Intra-abdominal infection / Fecal Contamination Given 11/14/2024 9:54 PM CDT 1 Tablet ondansetron (ZOFRAN) 4 mg/2 mL injection 4 mg 4 mg, IV, ONE TIME ONLY, 1 dose, On Thu11/14/24 at 2030, Stat Given 11/14/2024 9:03 PM CDT 4 mg sodium chloride 0.9 % bolus solution 1,000 mL 1,000 mL, IV, ONE TIME ONLY, 1 dose, On Thu11/14/24 at 1945, at 2,000 mL/hr, Administer over 30 Minutes, Routine New Bag 11/14/2024 8:18 PM CDT 1,000 mL 2000 mL/hr documented in this encounter Active and Recently Administered Medications Times are shown in CDT. Scheduled Medication Order 11/12/2024 11/13/2024 11/14/2024 amoxicillin-clavulanate (AUGMENTIN) 875-125 mg per tablet 1 Tablet (COMPLETED) 1 Tablet, Oral, ONE TIME ONLY, 1 dose, On Thu11/14/24 at 2145, Routine, Antibiotic Indication: Intra-abdominal infection / Fecal Contamination 2153 (Given - Provid er: Elin Segovia RN) ondansetron (ZOFRAN) 4 mg/2 mL injection 4 mg (COMPLETED) 4 mg, IV, ONE TIME ONLY, 1 dose, On Thu11/14/24 at 2030, Stat 2102 (Given - Provid er: Elin Segovia RN) sodium chloride 0.9 % bolus solution 1,000 mL (COMPLETED) 1,000 mL, IV, ONE TIME ONLY, 1 dose, On Thu11/14/24 at 1945, at 2,000 mL/hr, Administer over 30 Minutes, Routine 2017 (New Bag - Prov ider: Elin Segovia RN)2047 (Stopped - Provider: Elin Segovia RN) documented in this encounter Care Teams Shank Breaker Relationship Specialty Start Date End Date Alison Ramos MD [address] [place] [phone] PCP - General Internal Medicine 07/21/24 documented as of this encounter
[2024-11-21] VITALS (12 sets, daily range): BP systolic 117–165; BP diastolic 64–91; PULSE 63–97; RESP 9–26; TEMP 36.7–37; O2SAT 94–98; BMI 25.4
--- NOTE | 2024-11-21 16:17 | ECG_ITS ---
[facility]: 2024-11-21 Pat Name: Arielle Vences Department: Room: Gender: Female Dyno Technician: : 1940 Requested By: Lina Richards Order Number: [id number] Reba MD: Vidal Christopher M.D. Measurements Intervals [place] Rate: 80 P: 0 DE: 0 QRS: -71 QRSD: 86 T: 76 QT: 392 QTc: 452 Interpretive Statements ATRIAL FIBRILLATION PATTERN CONSISTENT WITH PULMONARY DISEASE LEFT ANTERIOR FASCICULAR BLOCK [QRS AXIS <= -45, QR IN I, RS IN II] ST ELEVATION CONSISTENT WITH INJURY, PERICARDITIS, OR EARLY REPOLARIZATION [ST ELEVATION W/O NORMALLY INFLECTED T-WAVE] MODERATE ST DEPRESSION [0.05+ mV ST DEPRESSION] Compared to ECG 10/17/2024 21:02:33 ST (T wave) deviation now present Early repolarization now present Incomplete right bundle-branch block no longer present Myocardial infarct finding no longer present Electronically Signed On 11-22-2024 21:47:14 CDT by Vidal Christopher M.D. [email or web address] [id number]
--- NOTE | 2024-11-21 16:17 | XRR_ITS ---
PROCEDURE INFORMATION: Exam: XR Chest Exam date and time: 11/21/2024 4:27 PM Age: 83 years old Clinical indication: Other: Stemi; Additional info: Cp TECHNIQUE: Imaging protocol: Radiologic exam of the chest. Views: 1 view. COMPARISON: CR XR chest 1V portable [id number] 04/09/2024 4:55 PM FINDINGS: Lungs: Unremarkable. No consolidation. Pleural spaces: Unremarkable. No pleural effusion. No pneumothorax. Heart/Mediastinum: Unremarkable. No cardiomegaly. Bones/joints: Unremarkable. XR/XR chest 1V portable [id number] IMPRESSION: No acute findings.
--- NOTE | 2024-11-21 16:30 | W.ED.CHESTPA ---
HPI - Chest Pain General: Chief Complaint: Chest Pain Stated Complaint: chest pain Time Seen by Provider: 11/21/24 16:24 Source: patient and EMS Mode of arrival: EMS Limitations: no limitations History of Present Illness: 83-year-old female states that she been having chest pain and feeling unwell over the last 30 minutes. States chest pain is a pressure type pain center of her chest but having some nausea with it as well. She denies any shortness of breath denies any worse improving factors did receive 324 of nitro and route. Associated symptoms: Reports nausea; Deny abdominal pain, dyspnea, fever(s) or vomiting Related Data Home Medications ?Medication ?Instructions ?Recorded ?Confirmed apixaban 5 mg tablet (Eliquis) 5 mg PO BID 04/06/19 11/27/23 gabapentin 600 mg tablet 600 mg PO TID 04/06/19 11/27/23 levothyroxine 88 mcg tablet 88 mcg PO QAM 04/06/19 11/27/23 loratadine 10 mg tablet 10 mg PO DAILY PRN Allergy Symptoms 04/06/19 11/27/23 mirabegron 50 mg tablet,extended 50 mg PO QAM 04/06/19 11/27/23 release 24 hr (Myrbetriq) cholecalciferol (vitamin D3) 1,250 50,000 unit PO Q7D 05/11/19 11/27/23 mcg (50,000 unit) capsule duloxetine 60 mg capsule,delayed 60 mg PO QAM 05/11/19 11/27/23 release (Cymbalta) trazodone 50 mg tablet 25 - 50 mg PO BEDTIME PRN Sleep 05/11/19 11/27/23 fluticasone propionate 50 1 - 2 spray intranasal DAILY PRN 09/09/19 11/27/23 mcg/actuation nasal Nasal Congestion spray,suspension (Flonase Allergy Relief) hydrocodone 10 mg-acetaminophen 1 tab PO TID PRN Pain 12/05/20 11/27/23 325 mg tablet sodium chloride-potassium chloride 1 tab PO QAM 02/16/21 11/27/23 287 mg-180 mg-15 mg tablet (Thermotabs) montelukast 10 mg tablet 10 mg PO QAM 01/14/22 11/27/23 alendronate 70 mg tablet 70 mg PO Q7D 11/08/22 11/27/23 denosumab 60 mg/mL subcutaneous See Rx Instructions .Route .COMPLEX 11/08/22 11/27/23 syringe (Prolia) donepezil 10 mg tablet 10 mg PO QAM 11/08/22 11/27/23 furosemide 20 mg tablet 20 mg PO QAM 11/08/22 11/27/23 lisinopril 10 mg tablet 10 mg PO BID 11/08/22 11/27/23 acyclovir 400 mg tablet 400 mg PO TID 07/08/23 11/27/23 amlodipine 10 mg tablet 10 mg PO DAILY 07/08/23 11/27/23 digoxin 125 mcg (0.125 mg) tablet 125 mcg PO QAM 07/08/23 11/27/23 empagliflozin 10 mg tablet 10 mg PO QAM 07/08/23 11/27/23 (Jardiance) levalbuterol tartrate 45 2 puff inhalation QID PRN 07/08/23 11/27/23 mcg/actuation aerosol inhaler Shortness Of Breath potassium chloride 20 mEq 20 meq PO .FIVE TIMES A DAY 07/08/23 11/27/23 tablet,extended release pravastatin 40 mg tablet 40 mg PO DAILY 07/08/23 11/27/23 tizanidine 2 mg tablet 2 mg PO BID 07/08/23 11/27/23 Previous Rx's ?Medication ?Instructions ?Recorded nitroglycerin 0.4 mg sublingual 0.4 mg sublingual Q5M PRN chest 09/09/19 tablet pain #30 tabs azithromycin 250 mg tablet See Rx Instructions PO .COMPLEX #6 07/18/23 (Zithromax) tabs cefdinir 300 mg capsule 300 mg PO BID #14 caps 07/18/23 ondansetron 4 mg disintegrating 4 mg PO Q6H PRN nausea and 08/16/23 tablet vomiting #14 tabs cephalexin 500 mg capsule 500 mg PO TID #15 caps 09/02/23 mupirocin 2 % topical ointment 1 applic topical DAILY #22 grams 09/19/23 amoxicillin 875 mg-potassium 1 tab PO BID #20 tabs 09/21/23 clavulanate 125 mg tablet honey 100 % topical paste 1 applic topical BID #103 mL 09/21/23 (MediHoney (honey)) clindamycin HCl 300 mg capsule 300 mg PO TID #30 caps 10/23/23 Allergies Allergy/AdvReac Type Severity Reaction Status Date / Time No Known Allergies Allergy Verified 02/22/24 19:21 Review of Systems Const: Denies: fever(s), chills, body aches or change in appetite ENMT: Denies: throat pain or dental pain Card: Reports: chest pain Resp: Denies: dyspnea GI: Reports: nausea; Denies: abdominal pain, vomiting or diarrhea Musc: Denies: neck pain or back pain Skin/Breast: Denies: rash Neuro: Denies: headache(s) PFSH ED PFSH: Medical History Dyspnea on exertion Peripheral edema Lymphedema Venous stasis dermatitis Hx of fracture of ankle Arthritis DJD (degenerative joint disease) Abdominal hernia Sliding hiatal hernia Hypothyroidism Insomnia Gastroenteritis DDD (degenerative disc disease) Restless legs Pulmonary nodule Diverticulitis Hx of fracture of tibia Dementia Age related osteoporosis Mixed incontinence History of colon polyps COVID Atrial fibrillation with RVR COPD (chronic obstructive pulmonary disease) Anal fissure Chronic back pain Lymphedema of both lower extremities Mixed hyperlipidemia Chronic systolic (congestive) heart failure Essential hypertension Surgical History History of amputation of toe Hx of blepharoplasty History of bladder surgery History of colonoscopy years ago History of hysterectomy Family History Sister Stroke CAD (coronary artery disease) CT @ 75 Hypertension Brother Cancer Father Cancer Social History Smoking and tobacco/nicotine status: tobacco/nicotine user, details unknown Second hand smoke exposure: No Alcohol intake: never Substance/Drug Use: never Adopted: No Caregiver/support person: No Lives independently: Yes Household members: spouse Housing: House Marital status: service: No Current occupational status: retired Do you think of yourself as: Straight/Heterosexual Current gender identity: Female Physical Exam Const: COMMON NORMALS: patient oriented x3 HENMT: COMMON NORMALS: normocephalic and atraumatic HEAD & SCALP: normocephalic and atraumatic Eye: COMMON NORMALS: Equal, round and reactive pupils present and EOMs intact bilaterally PUPIL: Yes Equal, round and reactive pupils present Neck/C-Spine: COMMON NORMALS: full ROM and supple Chest: COMMONS NORMALS: normal inspection of the chest and normal palpation of entire chest wall Resp: COMMON NORMALS: normal respiratory effort, No retractions, No use of accessory muscles and clear to auscultation bilaterally AUSCULTATION: clear to auscultation bilaterally Cardio: COMMON NORMALS: regular rate, regular rhythm and No murmurs present (Cardio) RATE: regular rate RHYTHM: regular rhythm GI: COMMON NORMALS: Normal to inspection, nondistended, normoactive bowel sounds present, Soft to palpation, non-tender and no masses PALPATION: Yes Soft to palpation Extremity: COMMON NORMALS: normal to inspection and full ROM Neuro: COMMON NORMALS: patient oriented x3, moves all extremities and no focal motor deficits Psych: COMMON NORMALS: mental status grossly normal, Normal thought process present and cooperative THOUGHT PROCESS: Normal thought process present Skin: COMMON NORMALS: no rashes or lesions noted and no wounds GENERAL SKIN EXAM: no rashes or lesions noted Course Vital Signs: Vital signs: Vital Signs Temperature 98.3 F 11/21/24 16:26 Pulse Rate 63 11/21/24 16:26 Respiratory Rate 16 11/21/24 16:26 Blood Pressure 157/77 11/21/24 16:26 Pulse Oximetry 97 11/21/24 16:26 Oxygen Delivery Me thod Room Air 11/21/24 16:26 MDM - Chest Pain Medical Decision Making Patient presents for chest pain initial EKG showed some mild ST elevation send to the green building design specialist was on the phone with him and had another EKG done and showed a worsening ST elevation in inferior leads STEMI was called off the second EKG Dr. Goldberg came down and seen the patient in ER will take her to [facility]. Lab Data 11/21/24 16:32 11/21/24 16:32 Radiology Impressions Chest X-Ray 11/21/24 16:17 IMPRESSION: No acute findings. Laboratory Results WBC 8.38 10^3/uL (3.29-11.43) 11/21/24 16:32 RBC 4.44 10^6/uL (3.85-5.65) 11/21/24 16:32 Hgb 9.50 g/dL (11.27-16.99) L 11/21/24 16:32 Hct 33.3 % (36-47) L 11/21/24 16:32 MCV 75.0 fl (85-98) L 11/21/24 16:32 MCH 21.4 pg (27-33) L 11/21/24 16:32 MCHC 28.5 g/dL (30-55) L 11/21/24 16:32 RDW 20.3 % (12.1-15.1) H 11/21/24 16:32 Plt Count 257 10^3/cmm (157-399) 11/21/24 16:32 MPV 9.2 fL (7.4-10.4) 11/21/24 16:32 Neut % (Auto) 68.2 % 11/21/24 16:32 Lymph % (Auto) 16.8 % 11/21/24 16:32 [place] % (Auto) 11.3 % 11/21/24 16:32 Eos % (Auto) 2.7 % 11/21/24 16:32 Baso % (Auto) 0.6 % 11/21/24 16:32 Neut # (Auto) 5.71 10^3/uL (1.8-7.7) 11/21/24 16:32 Lymph # (Auto) 1.4 10^3/uL (0.8-4.8) 11/21/24 16:32 [place] # (Auto) 1.0 10^3/uL (0.2-0.9) H 11/21/24 16:32 Eos # (Auto) 0.2 10^3/uL (0.0-0.8) 11/21/24 16:32 Baso # (Auto) 0.1 10^3/uL (0.0-0.1) 11/21/24 16:32 Nucleated RBC % (auto) 0 % 11/21/24: Nucleated RBCs # 0.0 /100WBC 11/21/24 16:32 All radiology interpretation(s) finalized by discharge Discharge Plan Discharge Patient Disposition: Admitted As Inpatient Clinical Impression: ST elevation myocardial infarction (STEMI) Condition: Stable Coding Level of Care Code ED Plastic Surgery Coordinator for Juan F Mckinney
--- OUTSIDE RECORDS SUMMARY | 2024-11-21 16:33 | XMS_ITS | Encounter Summary ---
Author Organization [facility] Address 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 * Telephone Encounter - Meron Quesada LPN - 11/07/2024 10:55 AM CDT Requesting refill of Hydrocodone 10-325 mg. documented in this encounter Plan of Treatment Upcoming Encounters Date Type Department Care Team (Late st Contact Info) Description 12/07/2024 9:00 AM CDT Office Visit [facility] Primary Care [place] [address] [place] [address] Alison Ramos MD [address] [place] [address] 01/09/2025 9:30 AM CDT Office Visit [facility] Primary Care [place] [address] [place] [address] Alison Ramos MD [address] [place] [address] documented as of this encounter Visit Diagnoses Diagnosis Degeneration of intervertebral disc of lumbar region with discogenic back pain- Primary documented in this encounter Care Teams Geotechnical Engineer Relationship Specialty Start Date End Date Alison Ramos MD [address] [place] [address] PCP - General Internal Medicine 07/21/24 documented as of this encounter
--- OUTSIDE RECORDS SUMMARY | 2024-11-21 16:33 | XMS_ITS | Encounter Summary ---
Author Organization [facility] Address [address] 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 Gender Identity Not on file Sexual Orientation Not on file documented as of this encounter Plan of Treatment Upcoming Encounters Date Type Department Care Team (Late st Contact Info) Description 12/07/2024 9:00 AM CDT Office Visit [facility] Primary Care [place] [address] [place] [address] Alison Ramos MD [address] [place] [address] 01/09/2025 9:30 AM CDT Office Visit [facility] Primary Care [place] [address] [place] [address] Alison Ramos MD [address] [facility] [address] [place] [address] documented as of this encounter Visit Diagnoses Not on filedocumented in this encounter Care Teams Soil Science Professor Relationship Specialty Start Date End Date Alison Ramos MD [address] [facility] [address] [place] [address] PCP - General Internal Medicine 07/21/24 documented as of this encounter
--- OUTSIDE RECORDS SUMMARY | 2024-11-21 16:33 | XMS_ITS | Encounter Summary ---
Author Organization [facility] Address 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 Gender Identity Not on file Sexual Orientation Not on file documented as of this encounter Plan of Treatment Upcoming Encounters Date Type Department Care Team (Late st Contact Info) Description 12/07/2024 9:00 AM CDT Office Visit [facility] Primary Care [place] [address] [place] [address] Alison Ramos MD [address] [place] [address] 01/09/2025 9:30 AM CDT Office Visit [facility] Primary Care [place] [address] [place] [address] Alison Ramos MD [address] [place] [address] documented as of this encounter Visit Diagnoses Not on filedocumented in this encounter Care Teams Lime Kiln Operator Relationship Specialty Start Date End Date Alison Ramos MD [address] [facility] [address] [place] [address] PCP - General Internal Medicine 07/21/24 documented as of this encounter
--- OUTSIDE RECORDS SUMMARY | 2024-11-21 16:34 | XMS_ITS | Encounter Summary ---
Author Organization [facility] Address [address] [place] [address] Care Team Providers Care Pot Fluxer Name Role Phone Alison Ramos MD Primary Care Provider Encounter Details Date Type Department Care Team (Late st Contact Info) Description 03/11/2024 Lab Requisition [facility] [address] [place] [phone] Alison Ramos MD [address] [facility] [address] [place] [phone] Urinary tract infection, site not specified Social History Tobacco Use Types Packs/Day Years Used Date Smoking Tobacco: Former Cigarettes Smokeless Tobacco: Never Alcohol Use Standard Drinks/Week Comments Not Currently 0 (1 standard drink = 0.6 oz pur e alcohol) Feeling Safe Answer Date Recorded Are you in a relationship wi th someone who hurts you emotionally and/or physically? 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 Gender Identity Not on file Sexual Orientation Not on file documented as of this encounter Plan of Treatment Upcoming Encounters Date Type Department Care Team (Late st Contact Info) Description 12/07/2024 9:00 AM CDT Office Visit [facility] Primary Care [place] [address] [place] [phone] Alison Ramos MD [address] [facility] [address] [place] [phone] 01/09/2025 9:30 AM CDT Office Visit [facility] Primary Care [place] [address] [place] [address] [place] [phone] Alison Ramos MD [address] [facility] [place] [address] [place] [phone] documented as of this encounter Procedures Procedure Name Priority Date/Time Associated Diagnosis Comments URINE CULTURE Routine 03/11/2024 3:00 PM PANEL SEWER Urinary tract infection, site not specified documented in this encounter Results * URINE CULTURE (03/11/2024 3:00 PM PANEL SEWER) CULTURE Polymicrobial growth consistent with normal urethral alda and/or colonizing bacteria 03/13/2024 7:27 AM PANEL SEWER [facility] Urine Collection / Unknown 03/11/2024 3:00 PM PANEL SEWER 03/11/2024 5:50 PM PANEL SEWER us Alison Ramos MD MICROBIOLOGY - GENERAL ORDERABLES Final Result [facility] [id number] [address] [place], [place] [address] [address] documented in this encounter Visit Diagnoses Diagnosis Urinary tract infection, site not specified documented in this encounter Additional Health Concerns Infection Onset Date Last Indicated Resolved Time R/O COVID-19 06/17/2024 06/17/2024 06/17/2024 9:17 AM CDT R/O COVID-19 08/26/2024 08/26/2024 08/26/2024 10:2 7 AM CDT documented as of this encounter Care Teams Pot Fluxer Relationship Specialty Start Date End Date Alison Ramos MD [address] [place] [phone] PCP - General Internal Medicine 07/21/24 documented as of this encounter
--- OUTSIDE RECORDS SUMMARY | 2024-11-21 16:34 | XMS_ITS | Patient Health Record ---
Author Organization [facility] Address [address] [place], [place] [phone] Care Team Providers Care Supply Chain Vice President Name Role Phone Vangie Suzie COURTNEY Primary Care Provider Unavail able Ashleigh LOCKHART, Dario Unavailable [phone] Allergies Allergen (clinical drug ingredient) Drug/Non Drug [...] Medicare Part B Claims Department [address] [address] [place] [address] [id number] Arielle Vences Self - patient is the insured [place] [address] [place] [id number] Arielle Vences Self - patient is the insured Medical (General) History Medical History History ICD Code See scanned documentation Surgical History Surgery Date(Month/Year) Bladder surgery, 1999 Hysterectomy, 1999 Hospitalization History Reason Date(Month/Year) Closed fracture tibia and ankle, 1999
--- OUTSIDE RECORDS SUMMARY | 2024-11-21 16:34 | XMS_ITS | Clinical Summary ---
Author Organization [facility] Address [address] [facility] [address] [place] [address] Phone Care Team Providers Care [employer] Name Role Phone Alison Ramos MD Primary [...] mg by mouth daily at bedtime. Active cholecalciferol, vitamin D3, (VITAMIN D3 ORAL) Take [...] by mouth late in the day. Active donepeziL (ARICEPT) 5 mg tablet Take 10 mg by mouth daily. Active sod.chlorid/pota ssium chloride (THERMOTABS ORAL) Take 1 Tablet by mouth daily. Active lisinopriL (PRINIVIL) 10 mg tablet [...] 8 hours as needed for Nausea/Emesis. Active busPIRone (BUSPAR) 5 mg tablet Take 1 Tablet (5 mg) by mouth 2 times daily for anxiety. 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 300 Gram 5 024 Active lidocaine (Lidoderm) 5 % Adhesive Patch, Medicated Apply 1-2 Patches to affected area daily. 60 Patch 3 024 Active nystatin (MYCOSTATIN) 100,000 unit/gram Cream Apply 1 APPLICATION Topically Three times a day 60 Gram 1 04/13/19 25 3:07 PM TELEVISION NEWS REPORTER 025 Active fluticasone propionate (FLONASE) 50 mcg/spray [place], Suspension nasal inhaler Administer 2 Sprays in each nostril daily. 16 Gram 025 Active pantoprazole (PROTONIX) 40 mg Tablet, Delayed Release (E.C.) Take 1 Tablet (40 mg) by mouth 2 times daily. 60 Tablet 1 025 Active nystatin (MYCOSTATIN) 100,000 unit/gram Ointment Apply topically to affected area 2 times daily. 30 Gram 2 08/10/19 25 2:54 PM CDT 025 Active promethazine-dex tromethorphan (PHENERGAN-DM) 6.25-15 mg/5 mL syrup Take 5-10 mL by mouth every 8 hours as needed for cough. 473 mL Active naloxone (NARCAN) 4 mg/spray [place], Non-Aerosol EMERGENCY USE ONLY: Administer 1 spray (4 mg) in one nostril one time. May repeat in alternating nostrils every 2-3 min until responsive or EMS arrives. 2 Each 3 Active ferrous sulfate (Iron) 325 mg (65 mg iron) tablet Take 1 Tablet (325 mg) by mouth daily. 90 Tablet 3 Active olopatadine 0.7 % Drops Administer 1 Drop in both eyes once to twice daily as needed for allergy. 5 mL 2 Active apixaban (ELIQUIS) 2.5 mg tablet Take 1 Tablet (2.5 mg) by mouth 2 times daily. 60 Tablet 6 Active Additional Information Patient taking differently:2.5 mg Oral TWO TIMES DAILY,Hold as of 10/18/24 for GI bleed, Reported on 10/18/2024 sucralfate (CARAFATE) 1 gram tablet Take 1 Gram by mouth 4 times daily before meals and at bedtime. Active HYDROcodone-acet aminophen (NORCO) 10-325 mg TabletIndication s:Primary osteoarthritis involving multiple joints Take 1 Tablet by mouth every 8 hours as needed for Pain, Moderate. Max Daily Amount: 3 Tablets 90 Tablet 11/08/19 3:20 PM CDT Active amoxicillin-clav ulanate (AUGMENTIN) 875-125 mg tablet Take 1 Tablet by mouth every 12 hours for 10 days. 20 Tablet 2024 Active calcium CARBONATE + vitamin D (CALTRATE+D) 600 mg-10 mcg (400 unit) Tablet Take 1 Tablet by mouth daily. Active ferrous fumarate (FERRETTS) 325 mg (106 mg iron) Tablet Take 325 mg by mouth daily. Active empagliflozin (Jardiance) 10 mg tablet Take 10 mg by mouth daily in the morning. Active denosumab (PROLIA) 60 mg/mL Syringe Inject 60 mg by subcutaneous injection see administration instructions. EVERY 6 MONTHS Active HYDROCODONE-ACET AMINOPHEN ORAL Take 1 Tablet by mouth every 8 hours as needed. 2024 Discontinued mupirocin (BACTROBAN) 2 % Ointment APPLY 1 APPLICATION TOPICALLY TWICE A DAY 22 Gram 024 2024 HYDROcodone-acet aminophen (NORCO) 10-325 mg Tablet Take 1 Tablet by mouth every 8 hours as needed. Max Daily Amount: 3 Tablets 90 Tablet 03/11/20 24 12:06 PM TELEVISION NEWS REPORTER 024 2024 Discontinued HYDROcodone-acet aminophen (NORCO) 10-325 mg Tablet Take 1 Tablet by mouth every 8 hours. Max Daily Amount: 3 Tablets 90 Tablet 04/13/19 25 3:07 PM TELEVISION NEWS REPORTER 025 2024 Discontinued HYDROcodone-acet aminophen (NORCO) 10-325 mg Tablet Take 1 Tablet by mouth every 8 hours as needed. Max Daily Amount: 3 Tablets 90 Tablet 06/09/19 25 11:58 AM CDT 025 2024 Discontinued HYDROcodone-acet aminophen (NORCO) 10-325 mg Tablet Take 1 Tablet by mouth every 8 hours as needed. Max Daily Amount: 3 Tablets 69 Tablet 06/16/19 25 1:55 PM CDT 025 2024 Discontinued HYDROcodone-acet aminophen (NORCO) 10-325 mg Tablet Take 1 Tablet by mouth every 8 hours. Max Daily Amount: 3 Tablets 90 Tablet 07/12/19 25 11:33 AM CDT 025 2024 Discontinued HYDROcodone-acet aminophen (NORCO) 10-325 mg Tablet Take 1 Tablet by mouth every 8 hours as needed. Max Daily Amount: 3 Tablets 90 Tablet 08/10/19 25 2:54 PM CDT 025 2024 Discontinued traMADol (ULTRAM) 50 mg tabletIndication s:Rib contusion, left, initial encounter Take 1 Tablet (50 mg) by mouth every 6 hours as needed for Pain. 20 Tablet 025 2024 Discontinued HYDROcodone-acet aminophen (NORCO) 10-325 mg Tablet Take 1 Tablet by mouth every 8 hours as needed. Max Daily Amount: 3 Tablets 90 Tablet 09/09/19 25 11:36 AM CDT 025 2024 Discontinued HYDROcodone-acet aminophen (NORCO) 10-325 mg Tablet Take 1 Tablet by mouth every 8 hours as needed. Max Daily Amount: 3 Tablets 90 Tablet 10/08/19 11:49 AM CDT 025 2024 Discontinued(R eorder) amoxicillin-clav ulanate (AUGMENTIN) 875-125 mg tablet Take 1 Tablet by mouth every 12 hours for 7 days. 14 Tablet 025 2024 Active Problems Problem Noted Date Diagnosed Date [...] Encounters Date Type Department Care Team Description 11/21/2024 Abstract [facility] ABSTRACTION Provider, Abstract 11/14/2024 6:32 PM CDT - 11/14/2024 9:59 PM CDT Emergency [facility] Emergency Medicine [address] [place] [phone] Kvng Nolan MD Colitis (Primary Dx) Discharge Disposition: Home or Self Care 11/14/2024 Travel 11/07/2024 Refill [facility] Primary [facility] [place] [address] [address] [place] [address] [place] [address] Alison Ramos MD Primary osteoarthritis involving multiple joints (Primary Dx) 11/07/2024 Refill [facility] Primary Care [place] [address] [place] [address] [place] [address] Alison Ramos MD Degeneration of intervertebral disc of lumbar region with discogenic back pain (Primary Dx) 11/04/2024 [facility] Primary Care [place] [address] [facility] [place] [address] [place] [address] Alison Ramos MD Medication Refill (Hydrocodone refill) 10/18/2024 1:58 PM CDT - 10/18/2024 4:05 PM CDT [facility] [address] [facility] [address] [place] [phone] Colitis (Primary Dx); Anemia, chronic disease Discharge Disposition: Home or Self Care 10/18/2024 Travel 09/20/2024 External Device Data Initial Department [address] [place] [address] Dr SUÁREZ: [place] [address] [facility] 09/05/2024 External Device Data Initial Department [address] [place] [address] Dr SUÁREZ: [place] [address] [facility], 08/29/2024 External Device Data Initial Department [address] [place] [address] Dr SUÁREZ: [place] [address] [facility], 08/27/2024 3:26 PM CDT - 08/27/2024 6:53 PM CDT [facility] [address] [facility] [address] [place] [phone] José Miguel Thao DO Generalized muscle weakness (Primary Dx); Dehydration Discharge Disposition: Home or Self Care 08/27/2024 3:58 AM CDT - 08/27/2024 5:54 AM CDT [facility] Emergency Medicine [facility] [address] [facility] [address] [place] [phone] Kvng Nolan MD Rib contusion, left, initial encounter (Primary Dx) Discharge Disposition: Home or Self Care 08/26/2024 9:05 AM CDT - 08/26/2024 11:40 AM T [facility] [address] [facility] [address] [place] [address] Kvng Nolan MD Urinary tract infection without hematuria, site unspecified (Primary Dx); Chronic obstructive pulmonary disease with acute exacerbation (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 Gender Identity Not on file Sexual Orientation [...] Mass Index 24.53 11/14/2024 6:34 PM CDT Plan of Treatment Upcoming Encounters Date Type Department Care Team (Late st Contact Info) Description 12/07/2024 9:00 AM CDT Office Visit [facility] Primary Care [place] [address] [facility] [place] [address] [place] [address] Alison Ramos MD [address] [place] [address] 01/09/2025 9:30 AM CDT Office Visit [facility] Primary Care [place] [address] [address] [place] [address] [place] [phone] Alison Ramos MD [address] [place], [place] [phone] Health Maintenance Due Date Last Done Comments DIABETES ANNUAL FOOT EXAM 1960 DIABETES ANNUAL RETINAL EXAM 1960 DIABETES HBA1C Q 6 MONTHS 1960 DIABETES MICROALBUMIN ANNUAL SCREEN 1960 LDL CHOLESTEROL ANNUAL 1960 DTAP/TDAP/TD VACCINES (1 - Tdap) 1961 ZOSTER VACCINE (1 of 2) 1992 OSTEOPOROSIS SCREENING 12/25/2007 RSV VACCINE (60+ or ) (1 - 1-dose 75+ series) 2017 Medicare Advantage ([place]) Prev entative Visit/Annual Wellness Visit 03/23/2024 INFLUENZA VACCINE (#1) 2024 COVID-19 Vaccine ( season) 11/21/202408/2020, 05/29/2020 PNEUMOCOCCAL VACCINE 50+ YEARS Completed 03/03/2023 Medical Devices Implanted Type Area Bleach Tester Device Identifier Shelf Expiration Date Model / Serial / Lot Clip Endo Resolution 360 Ultra 2.8mm 235cm [id number] - [id number] Implanted:Qty: 1 on 07/18/2024 by Rodney Bright MD at [facility] Clip N/A: [employer]Z [id number] 03/29/2027 [id number] / / [id number] Procedures Procedure Name Priority Date/Time Associated Diagnosis Comments CT ABDOMEN PELVIS WO CONTRAST Stat 11/14/2024 8:02 PM CDT URINALYSIS W/REFLEX MICROSCOPIC Stat 11/14/2024 7:05 PM CDT DIFFERENTIAL, MANUAL Stat 11/14/2024 6:42 PM CDT LACTIC ACID Stat 11/14/2024 6:42 PM CDT LIPASE Stat 11/14/2024 6:42 PM CDT COMPREHENSIVE METABOLIC PANEL Stat 11/14/2024 6:42 PM CDT CBC WITH DIFFERENTIAL Stat 11/14/2024 6:[address] ABDOMEN PELVIS WO CONTRAST Stat 10/18/2024 3:14 PM CDT OCCULT BLOOD GUAIAC DIAGNOSTIC Stat 10/18/2024 2:36 PM CDT TYPE AND SCREEN Stat 10/18/2024 2:20 PM CDT COMPREHENSIVE METABOLIC PANEL Stat 10/18/2024 2:20 PM CDT PTT Stat 10/18/2024 2:20 PM CDT PROTIME-INR Stat 10/18/2024 2:20 PM CDT CBC WITH DIFFERENTIAL Stat 10/18/2024 2:20 PM CDT OCCULT BLOOD GUAIAC DIAGNOSTIC Stat 08/27/2024 5:54 PM CDT DRUG SCREEN, URINE Stat 08/27/2024 5: 42 PM CDT URINALYSIS W/REFLEX MICROSCOPIC Stat 08/27/2024 5:42 PM CDT AMMONIA LEVEL Stat 08/27/2024 4:45 PM CDT ACETAMINOPHEN LEVEL Stat 08/27/2024 3 :57 PM CDT SALICYLATE LEVEL Stat 08/27/2024 3:57 PM CDT LACTIC ACID Stat 08/27/2024 3:57 PM CDT ETHANOL LEVEL Stat 08/27/2024 3:57 PM CDT COMPREHENSIVE METABOLIC PANEL Stat 08/27/2024 3:57 PM CDT CBC WITH DIFFERENTIAL Stat 08/27/2024 3:57 PM CDT XR RIBS UNILATERAL LEFT W PA CHEST Stat 08/27/2024 5:16 AM CDT URINALYSIS MICROSCOPY ONLY Stat 08/26/2024 10:18 AM CDT URINALYSIS W/REFLEX MICROSCOPIC Stat 08/26/2024 10:18 AM CDT XR CHEST PA OR AP 1 VW Stat 10:17 AM CDT DIFFERENTIAL, MANUAL Stat 08/26/2024 9:25 AM CDT COMPREHENSIVE METABOLIC PANEL Stat 08/26/2024 9:25 AM CDT CBC WITH DIFFERENTIAL Stat 08/26/2024 9:25 AM CDT COVID-19 ANTIGEN Stat 08/26/2024 12:2 8 AM CDT INFLUENZA VIRUS A AND B, ANTIGEN DETECTION Stat 08/26/2024 12:28 AM CDT from Last 3 Months Results * CT ABDOMEN PELVIS WO CONTRAST (11/14/2024 8:02 PM CDT) Only the most recent of2 resultswithin the time period is included. Anatomical Region Laterality Modality Abdomen Computed Tomogra [...] WITH REFLEX MICROSCOPIC (11/14/2024 7:05 PM CDT) Only the most recent of3 resultswithin the time period is included. COLOR UA Yellow Pale to Dark Yellow 11/14/2024 7:55 PM CDT [facility] CLARITY UA Clear Clear 11/14/2024 7:55 PM CDT [facility] SPECIFIC GRAVITY UA 1.010 1.003 - 1.035 11/14/2024 7:55 PM CDT [facility] PH UA 5.5 5.0 - 8.0 11/14/2024 7:55 PM CDT [facility] LEUKOCYTE ESTERASE UA Negative Negative 11/14/2024 7:55 PM CDT [facility] NITRITE UA Negative Negative 11/14/2024 7:55 PM CDT [facility] PROTEIN UA Negative Negative 11/14/2024 7:55 PM [facility] GL[facility] 3+(A) Negative 11/14/2024 7:55 PM [facility] KETONES UA Negative Negative 11/14/2024 7:55 PM [facility] UROBILINOGEN UA 0.2 <2.0 mg/dL 7:55 PM CDT [facility] BILIRUBIN UA Negative Negative 11/14/2024 7:55 PM CDT [facility] BLOOD UA Negative Negative 11/14/2024 7:55 PM CDT [facility] Urine URINE SPECIMEN OBTAINED BY CLEAN CATCH PROCEDURE / Unknown Collection / Unknown 11/14/2024 7:05 PM CDT 11/14/2024 7:52 PM CDT Kvng Nolan MD URINE ORDERABLES Final R esult [facility] CLIA # [id number] [address] [place] [address] * MANUAL DIFFERENTIAL (11/14/2024 6:42 PM CDT) Only the most recent of2 resultswithin the time period is included. PLATELET EST. Consistent w Count 11/14/2024 7:42 PM CDT [facility] ANISOCYTOSIS 1+ /hpf 11/14/2024 7:42 PM CDT [facility] MICROCYTES 1+ /hpf 11/14/2024 7:42 PM CDT [facility] HYPOCHROMIA 1+ /hpf 11/14/2024 7:42 PM CDT [facility] Blood Collection / Unknown 11/14/2024 6:42 PM CDT 11/14/2024 7:33 PM CDT Kvng Nolan MD HEMATOLOGY ORDERABLES CO M Final Result [facility] CLIA # [id number] [address] [place] [address] * LACTIC ACID (11/14/2024 6:42 PM CDT) Only the most recent of2 resultswithin the time period is included. LACTIC ACID 1.4 <=2.0 mmol/L 11/14/2024 7:46 PM [facility] Blood BLOOD SPECIMEN / Unknown Collection / Unknown 11/14/2024 6:42 PM CDT 11/14/2024 7:33 PM CDT Kvng Nolan MD CHEMISTRY ORDERABLES Fin al Result [facility] CLIA # [id number] [address] [place] [address] * (ABNORMAL) CBC WITH DIFFERENTIAL (11/14/2024 6:42 PM CDT) Only the most recent of4 resultswithin the time period is included. WBC 7.1 4.0 - 10.0 K/uL 11/14/2024 7:42 PM [facility] RBC 4.15 3.93 - 5.22 M/uL 11/14/2024 7:42 PM [facility] HEMOGLOBIN 8.9(L) 11.2 - 15.7 g/dL 11/14/2024 7:42 PM [facility] HEMATOCRIT 29.9(L) 34.1 - 44.9 % 11/14/2024 7:42 PM [facility] MCV 72.0(L) 79.4 - 94.8 fL 11/14/2024 7:42 PM [facility] MCH 21.4(L) 25.6 - 32.2 pg 11/14/2024 7:42 PM [facility] MCHC 29.8(L) 32.2 - 35.5 g/dL 11/14/2024 7:42 PM [facility] RDW 20.2(H) 11.0 - 14.5 % 11/14/2024 7:42 PM [facility] RDW-STDEV 52.0 36.9 - 56.9 fL 11/14/2024 7:42 PM [facility] PLATELETS 237 163 - 337 K/uL 11/14/2024 7:42 PM [facility] MPV 9.6(L) 10.0 - 14.8 fL 11/14/2024 7:42 PM [facility] NEUTROPHILS 67 34 - 71 % 11/14/2024 7:42 PM [facility] LYMPHOCYTES 14(L) 19 - 52 % 11/14/2024 7:42 PM [facility] MONOCYTES 11 5 - 13 % 11/14/2024 7:42 PM [facility] EOSINOPHILS 8(H) 1 - 6 % 11/14/2024 7:42 PM [facility] BASOPHILS 1 0 - 1 % 11/14/2024 7:42 PM [facility] IMMATURE GRANULOCYTES 0 % 11/14/2024 7:42 PM [facility] NEUTROPHIL ABSOLUTE 4.71 1.56 - 6.13 K/uL 11/14/2024 7:42 PM [facility] LYMPHOCYTE ABSOLUTE 0.97(L) 1.20 - 3.40 K/uL 11/14/2024 7:42 PM [facility] MONOCYTE ABSOLUTE 0.77(H) 0.24 - 0.36 K/uL 11/14/2024 7:42 PM [facility] EOSINOPHIL ABSOLUTE 0.53(H) 0.04 - 0.36 K/uL 11/14/2024 7:42 PM [facility] BASOPHILS ABSOLUTE 0.06 0.01 - 0.08 K/uL 11/14/2024 7:42 PM [facility] IMMATURE GRANULOCYTES ABSOLUTE 0.02 K/uL 11/14/2024 7:42 PM [facility] Blood Collection / Unknown 11/14/2024 6:42 PM CDT 11/14/2024 7:33 PM CDT us Kvng Nolan MD HEMATOLOGY ORDERABLES Fi nal Result [facility] CLIA # [id number] [address] [place] [address] * LIPASE (11/14/2024 6:42 PM CDT) LIPASE 51 13 - 60 U/L 11/14/2024 7:50 PM [facility] Blood Collection / Unknown 11/14/2024 6:42 PM CDT 11/14/2024 7:33 PM CDT Kvng Nolan MD CHEMISTRY ORDERABLES Fin al Result [facility] CLIA # [id number] [address] [place] [address] * (ABNORMAL) COMPREHENSIVE METABOLIC PANEL (11/14/2024 6:42 PM CDT) Only the most recent of4 resultswithin the time period is included. SODIUM 135(L) 136 - 145 mmol/L 11/14/2024 7:50 PM [facility] POTASSIUM 4.0 3.5 - 5.1 mmol/L 11/14/2024 7:50 PM [facility] CHLORIDE 99 98 - 107 mmol/L 11/14/2024 7:50 PM [facility] CO2 26 22 - 29 mmol/L 11/14/2024 7:50 PM [facility] CALCIUM 10.2 8.8 - 10.2 mg/dL 11/14/2024 7:50 PM [facility] BUN 12 8 - 23 mg/dL 11/14/2024 7:50 PM [facility] CREATININE 1.08(H) 0.51 - 0.95 mg/dL 11/14/2024 7:50 PM [facility] Comment:The GFR result is no t clinically significant on patients <18 or >70 years of age. GLUCOSE 80 74 - 99 mg/dL 11/14/2024 7:50 PM [facility] TOTAL PROTEIN 7.2 6.6 - 8.7 g/dL 11/14/2024 7:50 PM [facility] ALBUMIN 4.3 3.5 - 5.2 g/dL 11/14/2024 7:50 PM CDT [facility] BILIRUBIN TOTAL 0.4 0.0 - 1.2 mg/dL 11/14/2024 7:50 PM CDT [facility] ALKALINE PHOSPHATASE 79 35 - 104 U/L 11/14/2024 7:50 PM CDT [facility] AST 25 0 - 35 U/L 11/14/2024 7:50 PM CDT [facility] ALT 9 0 - 35 U/L 11/14/2024 7:50 PM CDT [facility] GFR 52 mL/min/1.7 3 sq meter 11/14/2024 7:50 PM CDT [facility] Comment:eGFR calculated with 2020 CKD-EPI equation. Vegetarian diet, extremely high or low muscle mass, and may affect results. Cystatin C with Glomerular Filtration Rate is a suitable alternative for these patients. ANION GAP 10 5 - 20 mmol/L 11/14/2024 7:50 PM CDT [facility] Blood Collection / Unknown 11/14/2024 6:42 PM CDT 11/14/2024 7:33 PM CDT us Kvng Nolan MD CHEMISTRY ORDERABLES Fin al Result [facility] CLIA # [id number] [address] [place] [address] * OCCULT BLOOD GUAIAC DIAGNOSTIC (10/18/2024 2:36 PM CDT) Only the most recent of2 resultswithin the time period is included. OCCULT BLOOD, STOOL Negative Negative 10/18/2024 2:59 PM CDT [facility] Stool STOOL SPECIMEN / Unknown Collection / Unknown 10/18/2024 2:36 PM CDT 10/18/2024 2:58 PM CDT us Penny Brambila [employer] B[employer] FLUIDS AND STOOLS Neda l Result [facility] CLIA # [id number] [address] [place] [address]648 * PTT (10/18/2024 2:20 PM CDT) PTT 30.9 25.1 - 35.4 seconds 10/18/2024 2:43 PM CDT [facility] Blood BLOOD SPECIMEN / Unknown Collection / Unknown 10/18/2024 2:20 PM CDT 10/18/2024 2:28 PM CDT Penny Brambila [facility] HEMATOLOGY ORDERABLES Final Result Performing Organization Address [facility] Co de Phone Number [facility] CLIA # [id number] [address] [place] [address] * (ABNORMAL) PROTIME-INR (10/18/2024 2:20 PM CDT) PROTIME 14.4(H) 12.1 - 14.3 Seconds 10/18/2024 2:43 PM CDT [facility] INR 1.1 0.9 - 1.1 10/18/2024 2:43 PM CDT [facility] Blood BLOOD SPECIMEN / Unknown Collection / Unknown 10/18/2024 2:20 PM CDT 10/18/2024 2:28 PM CDT Penny Brambila [facility] HEMATOLOGY ORDERABLES Final Result Performing Organization Address [facility] Co de Phone Number [facility] CLIA # [id number] [address] [place] [address] * TYPE AND SCREEN (10/18/2024 2:20 PM CDT) ABO/RH TYPE O NEG 10/18/2024 2:59 PM CDT [facility] ANTIBODY SCREEN Negative 10/18/2024 2:59 PM CDT [facility] Blood BLOOD SPECIMEN / Unknown Collection / Unknown 10/18/2024 2:20 PM CDT 10/18/2024 2:52 PM CDT Penny Brambila [facility] BLOOD BANK ORDERABLES Final Result [facility] CLIA # [id number] [address] [place] [address] * (ABNORMAL) DRUG SCREEN, URINE (08/27/2024 5:42 PM CDT) [facility] CANNABINOIDS QUAL, URINE Negative Negative 08/27/2024 6:00 PM CDT [facility] PCP QUAL, URINE Negative Negative 6:00 PM CDT [facility] COCAINE QUAL URINE Negative Negative 2024 6:00 PM CDT [facility] METHAMPHETAMINE QUAL, URINE Negative Negative 08/27/2024 6:00 PM CDT [facility] OPIATE QUAL, URINE Presumptive Positive(A) Negative 08/27/2024 6:00 PM CDT [facility] AMPHETAMINE QUAL, URINE Negative Negative 08/27/2024 6:00 PM CDT [facility] BENZODIAZEPINE QUAL, URINE Negative Negative 08/27/2024 6:00 PM CDT [facility] TRICYCLICS QUAL, URINE Negative Negative 08/27/2024 6:00 PM CDT [facility] METHADONE QUAL, URINE Negative Negative 08/27/2024 6:00 PM CDT [facility] BARBITURATE QUAL, URINE Negative Negative 08/27/2024 6:00 PM CDT [facility] OXYCODONE QUAL, URINE Negative Negative 08/27/2024 6:00 PM CDT [facility] Urine URINE SPECIMEN OBTAINED BY CLEAN CATCH PROCEDURE / Unknown Collection / Unknown 08/27/2024 5:42 PM CDT 08/27/2024 5:47 PM CDT Narrative [facility] - 08/27/2024 6:00 PM CDT This [...] Miguel Thao DO URINE ORDERABLES Final Result Performing Organization Address [facility] Co de Phone Number [facility] CLIA # [id number] [address] [place] [address] * AMMONIA LEVEL (08/27/2024 4:45 PM CDT) AMMONIA 18.2 11.0 - 51.0 umol/L 08/27/2024 5:06 PM CDT [facility] Blood, venous 08/27/2024 4:4 5 PM CDT 08/27/2024 4:48 PM CDT José Miguel Thao DO CHEMISTRY ORDERABLES Final Resu lt Performing Organization Address [facility] Co de [id number] [address] [place] [address] * ETHANOL LEVEL (08/27/2024 3:57 PM CDT) ETHANOL <10.10 <10.10 mg/dL 08/27/2024 4:41 PM CDT [facility] ETHANOL % <0.01 %w/v 08/27/2024 4:41 PM CDT [facility] Blood Venipuncture / Unknown 08/27/2024 3:57 PM CDT 08/27/2024 4:25 PM CDT José Miguel Thao DO CHEMISTRY ORDERABLES Final Resu lt [facility] CLIA # [id number] [address] [place] [address] * ACETAMINOPHEN LEVEL (08/27/2024 3:57 PM CDT) ACETAMINOPHEN LEVEL <5 0 - 30 ug/mL 08/27/2024 4:41 PM CDT [facility] Blood Venipuncture / Unknown 08/27/2024 3:57 PM CDT 08/27/2024 4:25 PM CDT [facility] - 08/27/2024 4:41 PM CDT Therapeutic Range: 10-30 ug/mL The following Acetaminophen levels are associated with possible toxicity: 4 hours after dose >200 ug/mL 8 hours after dose >100 ug/mL 12 hours after dose >50 ug/mL us José Miguel Thao DO CHEMISTRY ORDERABLES Final Resu lt Performing Organization Address [facility] Co de Phone Number [facility] CLIA # [id number] [address] [place] [id number] * SALICYLATE LEVEL (08/27/2024 3:57 PM CDT) SALICYLATE LEVEL <0.5 0.0 - 20.0 mg/dL 08/27/2024 4:42 PM CDT [facility] Blood Venipuncture / Unknown 08/27/2024 3:57 PM CDT 08/27/2024 4:25 PM CDT Narrative [facility] - 08/27/2024 4:42 PM CDT Negative <3.0 mg/dL Therapeutic 3.0 - 10 mg/dL Toxicity >30 mg/dl Lethal >60 mg/dL us José Miguel Thao DO CHEMISTRY ORDERABLES Final Resu lt Performing Organization Address City/[facility]/ZIP Co de Phone Number [facility] CLIA # [id number] [address] [place] [id number] * XR RIBS UNILATERAL LEFT W PA [...] - 2 /hpf 08/26/2024 11:02 AM CDT [facility] RBC UA 0-2 0 - 2 /hpf 08/26/2024 11:02 AM CDT [facility] BACTERIA UA 2+(A) Negative /hpf 08/26/2024 11:02 AM CDT [facility] EPITHELIAL CELLS, URINE 6-10(A) 0 - 5 /hpf 08/26/2024 11:02 AM CDT [facility] Urine URINE SPECIMEN OBTAINED BY CLEAN CATCH PROCEDURE / Unknown Collection / Unknown 08/26/2024 10:18 AM CDT 08/26/2024 10:50 AM CDT Kvng Nolan MD URINE ORDERABLES Final R esult [facility] [id number] [address] [place] [id number] * XR CHEST PA OR AP 1 [...] DIAGNOSTIC IMAGING ORDER MEGHAN Final Result * COVID-19 ANTIGEN (08/26/2024 12:28 AM CDT) [facility] COVID-19 ANTIGEN Presumptive Negative Presumptive Negative 08/26/2024 10:27 AM T [facility] Upper Respiratory ANTERIOR NARES SWAB / Unknown Collection / Unknown 08/26/2024 12:28 AM CDT 08/26/2024 10:00 AM CDT [facility] - 08/26/2024 10:27 AM CDT Carrol SARS antigen test has been authorized by FDA under an emergency use authorization (EUA) and has been authorized only for the detection of proteins from SARS-CoV-2 and influenza, not for any other viruses or pathogens. Carrol SARS Antigen RICO is intended for the simultaneous qualitative detection and differentiation of nucleocapsid protein antigen from SARS-CoV-2 directly from nasopharyngeal (SPEECH AND LANGUAGE CLINICIAN) and nasal (NS) swab specimens collected from [...] MICROBIOLOGY - GENERAL O RDERABLES Final Result [facility] # [id number] [address] [place] [id number] * INFLUENZA VIRUS A AND B, ANTIGEN DETECTION (08/26/2024 12:28 AM CDT) INFLUENZA A AG NOT DETECTED Not Detected 08/26/2024 10:28 AM CDT [facility] INFLUENZA B AG NOT DETECTED Not Detected 08/26/2024 10:28 AM CDT [facility] Upper Respiratory ENTIRE NASOPHARYNX / Unknown Collection / Unknown 08/26/2024 12:28 AM CDT 08/26/2024 10:00 AM CDT Narrative [facility] - 08/26/2024 10:28 AM CDT Negative results do not rule out infection. If clinically indicated, consider PCR testing which is more sensitive than antigen testing. If PCR testing is desired, consult with your local laboratory as sample recollection may be required. Kvng Nolan MD MICROBIOLOGY - GENERAL O RDERABLES Final Result [facility] CLIA # [id number] [address] [place] [id number] from Last 3 Months Insurance MEDICAID [place] [facility] RX [employer] PLANS (INTERNAL) [facility] RX INFOCROSSING Medicaid RX AETNA Medicare Part D Advance Directives For more information, please contact: [phone] * Default Full Code - Needs Discussion (Latest Code Status on File) Date Activated Date Inactivated Comments 07/18/2024 4:04 AM 07/20/2024 4:18 PM Care Teams [employer] Wiener Relationship Specialty Start Date End Date Alison Ramos MD [address] [place] [address] [place]ela [place] [phone] PCP - General Internal Medicine 07/21/24
--- OUTSIDE RECORDS SUMMARY | 2024-11-21 16:35 | XMS_ITS | Encounter Summary ---
Author Organization [facility] Address 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 Gender Identity Not on file Sexual Orientation Not on file documented as of this encounter Plan of Treatment Upcoming Encounters Date Type Department Care Team (Late st Contact Info) Description 12/07/2024 9:00 AM CDT Office Visit [facility] Primary Care [place] [address] [place] [address] [place] [phone] Alison Ramos MD [address] [facility] [place] [address] [place] [phone] 01/09/2025 9:30 AM CDT Office Visit [facility] Primary Care Ashley [place] [address] [place] [address] [place] [phone] Alison Ramos MD [address] [place] [address] [place] [phone] documented as of this encounter Procedures Procedure Name Priority Date/Time Associated Diagnosis Comments RHEUMATOID FACTOR Routine 12/31/2023 12: 00 AM CDT ROBERT SCREEN W/REFLEX Routine 12/31/2023 1 2:00 AM CDT documented in this encounter Results * RHEUMATOID FACTOR (12/31/2023 12:00 AM CDT) RHEUMATOID FACTOR <13 <=30 IU/mL 12/31/2023 8:04 PM CDT [facility] Blood 12/31/2023 12/31/2023 4:2 2 PM CDT Alison Ramos MD CHEMISTRY ORDERABLES F inal Result [facility] [id number] [address] [place] [address] * ROBERT SCREEN W/REFLEX (12/31/2023 12:00 AM CDT) ROBERT SCREEN NEGATIVE NEGATIVE 01/05/2024 2:47 PM CDT [facility] Comment: ROBERT IFA is a first line screen for detecting the presence of up to approximately 150 autoantibodies in various autoimmune diseases. A negative ROBERT IFA result suggests an ROBERT-associated autoimmune disease is not present at this time, but is not definitive. If there is high clinical suspicion for Sjogren's syndrome, testing for anti-SS-A/Ro antibody should be considered. Anti-Digna-1 antibody should be considered for clinically suspected inflammatory myopathies. AC-0: Negative International Consensus on ROBERT Patterns (https://doi.org/10.1515/iiwx-4565-5504) For additional information, please refer to http://education.[employer]/faq/EDU606 (This link is being provided for informational/ educational purposes only.) Blood Collection / Unknown 12/31/2023 12/31/2023 4:22 PM CDT Narrative [facility] 01/05/2024 2:47 PM CDT Performing Organization Information: Site ID: [place] Name: [employer] Address: [address] [place] [address] Director: Farrukh Montenegro MD us Alison Ramos MD CHEMISTRY ORDERABLES F inal Result [facility] [phone] documented in this encounter Visit Diagnoses Not on filedocumented in this encounter Additional Health Concerns Infection Onset Date Last Indicated Resolved Time R/O COVID-19 06/17/2024 06/17/2024 06/17/2024 9:17 AM CDT R/O COVID-19 08/26/2024 08/26/2024 08/26/2024 10:2 7 AM CDT documented as of this encounter Care Teams Ferry Operator Relationship Specialty Start Date End Date Alison Ramos MD [address] [place] [address] [address] [place] [phone] PCP - General Internal Medicine 07/21/24 documented as of this encounter
[2024-11-21] MEDS: heparin 5,000 unit/mL INJ 1 mL 4000 UNIT IVP (16:36)
[2024-11-21 16:37] LABS: Hematocrit 33.3 % (36-47); Hemoglobin 9.50 g/dL (11.27-16.99); Mean Corpuscular HGB Conc 28.5 g/dL (30-55); Mean Corpuscular Hemoglobin 21.4 pg (27-33); Mean Corpuscular Volume 75.0 fl (85-98); Nucleated Red Blood Cells % 0 %; Platelet Count 257 10^3/cmm (157-399); Red Blood Count 4.44 10^6/uL (3.85-5.65); White Blood Count 8.38 10^3/uL (3.29-11.43)
[2024-11-21 16:54] LABS: Alanine Aminotransferase 7 U/L (0-33); Albumin Level 4.2 g/dL (3.5-5.2); Alkaline Phosphatase 83 U/L (35-105); Anion Gap 15.9 (5-19); Aspartate Amino Transferase 16 U/L (0-32); Blood Urea Nitrogen 8 mg/dL (8-23); Calcium 9.7 mg/dL (8.5-10.5); Carbon Dioxide 24 mmol/L (22-29); Chloride 98 mmol/L (98-107); Creatinine Clr Calc Pharmacy 49.7222; Globulin 2.8 g/dL (1.3-4.6); Glucose 130 mg/dL (65-115); Lipase 44 U/L (13-60); Osmolality Calculated 278 mOsm/kg (285-295); Potassium 3.9 mmol/L (3.5-5.1); Sodium 134 mmol/L (136-145); Total Protein 7.0 g/dL (6.6-8.7)
[2024-11-21 16:56] LABS: Troponin(5th) Baseline 45 ng/L (0-10)
--- NOTE | 2024-11-21 17:07 | PM.CONSULT ---
Providers/Reason For Consult Consulting Physician/Specialty*: Zohra Russell MD/interventional cardiology Reason for Consult*: Dynamic EKG changes with chest pain suggestive of acute coronary syndrome/ST elevation in the inferior leads with anteroseptal reciprocal changes Requesting Physician: Dr. Caldera Attending Physician: Haider Barcenas MD Primary Care Provider: Alison Ramos MD History of Present Illness History of Present Illness Arielle Vences is a 83 year old female past medical history significant for congestive heart failure hypertension atrial fibrillation on anticoagulation taken Eliquis this morning presented with chest pain of 30 minutes in duration. She was loaded with 600 mg of Plavix given heparin 4000 units. Serial EKGs were suspicious of ST elevation in the inferior leads with anteroseptal reciprocal changes therefore we decided to proceed with left heart cath. Patient has been explained all risk-benefit and alternative for the procedure would like to be full code for now and proceed with left heart cath. She clearly understood being frail having comorbidities and Eliquis on board she is high risk for bleeding. She understood 5% mortality 10% major bleed requiring transfusion hematoma bruising, and 5% chance of contrast-induced nephropathy urgent or emergent vascular or CT surgery temporary or permanent dialysis from contrast-induced nephropathy. She would like to proceed with it. Medications/Allergies Home Medications ?Medication ?Instructions ?Recorded ?Confirmed ?Last Taken ?Type apixaban 5 mg tablet (Eliquis) 5 mg PO BID 04/06/19 11/21/24 11/20/24 History gabapentin 600 mg tablet 600 mg PO TID 04/06/19 11/21/24 11/20/24 History levothyroxine 88 mcg tablet 88 mcg PO QAM 04/06/19 11/21/24 11/20/24 History loratadine 10 mg tablet 10 mg PO DAILY PRN Allergy Symptoms 04/06/19 11/21/24 01/13/22 History mirabegron 50 mg tablet,extended 50 mg PO QAM 04/06/19 11/21/24 11/20/24 History release 24 hr (Myrbetriq) cholecalciferol (vitamin D3) 1,250 50,000 unit PO Q7D 05/11/19 11/21/24 07/05/23 History mcg (50,000 unit) capsule trazodone 50 mg tablet 25 - 50 mg PO BEDTIME PRN Sleep 05/11/19 11/21/24 02/15/21 History nitroglycerin 0.4 mg sublingual 0.4 mg sublingual Q5M PRN chest 09/09/19 11/21/24 12/04/20 Rx tablet pain #30 tabs montelukast 10 mg tablet 10 mg PO QAM 01/14/22 11/21/24 11/20/24 History alendronate 70 mg tablet 70 mg PO Q7D 11/08/22 11/21/24 07/05/23 History donepezil 10 mg tablet 10 mg PO QAM 11/08/22 11/21/24 11/20/24 History furosemide 20 mg tablet 20 mg PO QAM 11/08/22 11/21/24 11/20/24 History lisinopril 10 mg tablet 10 mg PO BID 11/08/22 11/21/24 11/20/24 History amlodipine 10 mg tablet 10 mg PO DAILY 07/08/23 11/21/24 11/20/24 History digoxin 125 mcg (0.125 mg) tablet 125 mcg PO QAM 07/08/23 11/21/24 11/20/24 History empagliflozin 10 mg tablet 10 mg PO QAM 07/08/23 11/21/24 11/20/24 History (Jardiance) potassium chloride 20 mEq 20 meq PO .FIVE TIMES A DAY 07/08/23 11/21/24 11/20/24 History tablet,extended release pravastatin 40 mg tablet 40 mg PO DAILY 07/08/23 11/21/24 11/20/24 History tizanidine 2 mg tablet 2 mg PO BID 07/08/23 11/21/24 11/20/24 History amoxicillin 875 mg-potassium 1 tab PO BID #20 tabs 09/21/23 11/21/24 Unknown Rx clavulanate 125 mg tablet duloxetine 60 mg capsule,delayed 60 mg PO QAM 11/21/24 11/21/24 11/20/24 History release nystatin 100,000 unit/gram topical See Rx Instructions .Route .COMPLEX 11/21/24 11/21/24 Unknown History cream pantoprazole 40 mg tablet,delayed 40 mg PO Q12H 11/21/24 11/21/24 11/20/24 History release Allergies Allergy/AdvReac Type Severity Reaction Status Date / Time No Known Allergies Allergy Verified 02/22/24 19:21 PFSH Acute PFSH: Medical History (Updated 11/21/24 @ 16:32 by Lina Richards MD) Dyspnea on exertion Peripheral edema Lymphedema Venous stasis dermatitis Hx of fracture of ankle Arthritis DJD (degenerative joint disease) Abdominal hernia Sliding hiatal hernia Hypothyroidism Insomnia Gastroenteritis DDD (degenerative disc disease) Restless legs Pulmonary nodule Diverticulitis Hx of fracture of tibia Dementia Age related osteoporosis Mixed incontinence History of colon polyps COVID Atrial fibrillation with RVR COPD (chronic obstructive pulmonary disease) Anal fissure Chronic back pain Lymphedema of both lower extremities Mixed hyperlipidemia Chronic systolic (congestive) heart failure Essential hypertension Surgical History History of amputation of toe Hx of blepharoplasty History of bladder surgery History of colonoscopy years ago History of hysterectomy Family History Sister Stroke CAD (coronary artery disease) [place] @ 75 Hypertension Brother Cancer Father Cancer Social History Smoking and tobacco/nicotine status: tobacco/nicotine user, details unknown Second hand smoke exposure: No Alcohol intake: never Substance/Drug Use: never Adopted: No Caregiver/support person: No Lives independently: Yes Household members: spouse Housing: House Marital status: service: No Current occupational status: retired Do you think of yourself as: Straight/Heterosexual Current gender identity: Female Vitals/I&O/Wt Last Vital Signs Temp 98.3 F 11/21/24 16:26 Pulse 63 11/21/24 16:26 Resp 16 11/21/24 16:26 BP 157/77 11/21/24 16:26 Pulse Ox 97 11/21/24 16:26 O2 Del Method Room Air 11/21/24 16:26 Weight last 48 hrs Weight 158 lb Physical Exam Const: OTHER: GENERAL: Patient is alert, awake and oriented x3. She is frail complaining of chest pain HEART: Regular S1 and S2. No murmur, rub or gallop. LUNGS: Clear to auscultate bilaterally. CENTRAL NERVOUS SYSTEM: Grossly nonfocal. EXTREMITIES: Lower extremities with out edema bilaterally. Data 11/21/24 16:32 11/21/24 16:32 A&P Assessment and plan 1. ST elevation myocardial infarction (STEMI): 2. Dementia: 3. CHF (congestive heart failure): 4. Essential hypertension: 5. Mixed hyperlipidemia: 6. Afib: Plan: Will proceed with urgent left heart cath. Further plan be advised as per progress of the patient. PDMP PDMP Reviewed: Not Reviewed Coding Level of Care Code Acute Code for [facility] Diagnoses ST elevation myocardial infarction (STEMI) I21.3 Dementia F03.90 CHF (congestive heart failure) I50.9 Essential hypertension I10 Mixed hyperlipidemia E78.2 Afib I48.91
--- NOTE | 2024-11-21 17:12 | PM.HP ---
Providers/Chief Complaint Primary Care Provider: Alison Ramos MD Chief Complaint: chest pain History of Present Illness Arielle Vences is a 83 year old female with past medical history of atrial fibrillation not currently on anticoagulation for last 1 month because of recent diagnosis of upper GI bleed due to GI arterial rupture for which she was treated a month ago at outside hospital, dementia, hypertension, hypothyroidism presents to the ER today because of concerns of chest pain 30 minutes duration along with nausea. In the ER STEMI was called, patient was given 60 mg of Plavix, 325 mg of aspirin and 412 units of heparin. Patient was emergently taken to [facility] for left heart cath where she was noted to have a very distal LAD and distal LCx thrombus. Hospitalist service was requested for further management. Review of Systems General: Reports: 10 or more systems reviewed and unremarkable except in HPI and below Const: Denies: fever(s), chills, body aches, change in appetite, change in weight, malaise, night sweats, diaphoresis, change in sleep pattern, daytime sleepiness or snoring Eyes: Denies: change in vision, blurry vision, photophobia, eye discomfort or eye discharge ENMT: Denies: throat pain, enlarged tonsils, hoarseness, mouth pain, oral sores, dry mouth, tinnitus, nasal congestion or post nasal drip Card: Denies: chest pain, palpitations, irregular heart rhythm, edema, swelling of feet/ankles, lightheadedness, syncope, pre-syncope, dyspnea on exertion, orthopnea, leg pain with exertion or acrocyanosis Resp: Denies: dyspnea, productive cough, non-productive cough, wheezing, stridor, pain on inspiration, change in phlegm color, hemoptysis or chest congestion GI: Denies: abdominal pain, nausea, vomiting, hematemesis, coffee ground emesis, dysphagia, heartburn, diarrhea, constipation, bloating, GI cramping, change in bowel habits, pain on defecation, hematochezia or melena : Denies: flank pain, dysuria, urinary frequency, urinary urgency, urinary hesitancy, nocturia or hematuria Musc: Denies: neck pain, back pain, extremity pain, joint pain, joint swelling, joint redness, joint stiffness or limited range of motion Neuro: Denies: headache(s), numbness in extremities, weakness in extremities, sensory changes, lack of coordination, difficulty walking, frequent falls, dizziness, vertigo, confusion, Slurred speech present, difficulty communicating thoughts or seizure-like activity Psych: Denies: anxiety, depression, mood swings, panic attacks, hopelessness or irritability Endo: Denies: polyuria, polydipsia, tired all the time, cold intolerance, excessive sweating, flushing or heat intolerance Chito/Lymph: Denies: easy bruising or easy bleeding All/Imm: Denies: tongue swelling, facial swelling or acute wheezing Medications/Allergies Home Medications ?Medication ?Instructions ?Recorded ?Confirmed ?Last Taken ?Type apixaban 5 mg tablet (Eliquis) 5 mg PO BID 04/06/19 11/21/24 11/20/24 History gabapentin 600 mg tablet 600 mg PO TID 04/06/19 11/21/24 11/20/24 History levothyroxine 88 mcg tablet 88 mcg PO QAM 04/06/19 11/21/24 11/20/24 History loratadine 10 mg tablet 10 mg PO DAILY PRN Allergy Symptoms 04/06/19 11/21/24 01/13/22 History mirabegron 50 mg tablet,extended 50 mg PO QAM 04/06/19 11/21/24 11/20/24 History release 24 hr (Myrbetriq) cholecalciferol (vitamin D3) 1,250 50,000 unit PO Q7D 05/11/19 11/21/24 07/05/23 History mcg (50,000 unit) capsule trazodone 50 mg tablet 25 - 50 mg PO BEDTIME PRN Sleep 05/11/19 11/21/24 02/15/21 History nitroglycerin 0.4 mg sublingual 0.4 mg sublingual Q5M PRN chest 09/09/19 11/21/24 12/04/20 Rx tablet pain #30 tabs montelukast 10 mg tablet 10 mg PO QAM 01/14/22 11/21/24 11/20/24 History alendronate 70 mg tablet 70 mg PO Q7D 11/08/22 11/21/24 07/05/23 History donepezil 10 mg tablet 10 mg PO QAM 11/08/22 11/21/24 11/20/24 History furosemide 20 mg tablet 20 mg PO QAM 11/08/22 11/21/24 11/20/24 History lisinopril 10 mg tablet 10 mg PO BID 11/08/22 11/21/24 11/20/24 History amlodipine 10 mg tablet 10 mg PO DAILY 07/08/23 11/21/24 11/20/24 History digoxin 125 mcg (0.125 mg) tablet 125 mcg PO QAM 07/08/23 11/21/24 11/20/24 History empagliflozin 10 mg tablet 10 mg PO QAM 07/08/23 11/21/24 11/20/24 History (Jardiance) potassium chloride 20 mEq 20 meq PO .FIVE TIMES A DAY 07/08/23 11/21/24 11/20/24 History tablet,extended release pravastatin 40 mg tablet 40 mg PO DAILY 07/08/23 11/21/24 11/20/24 History tizanidine 2 mg tablet 2 mg PO BID 07/08/23 11/21/24 11/20/24 History amoxicillin 875 mg-potassium 1 tab PO BID #20 tabs 09/21/23 11/21/24 Unknown Rx clavulanate 125 mg tablet duloxetine 60 mg capsule,delayed 60 mg PO QAM 11/21/24 11/21/24 11/20/24 History release nystatin 100,000 unit/gram topical See Rx Instructions .Route .COMPLEX 11/21/24 11/21/24 Unknown History cream pantoprazole 40 mg tablet,delayed 40 mg PO Q12H 11/21/24 11/21/24 11/20/24 History release Allergies Allergy/AdvReac Type Severity Reaction Status Date / Time No Known Allergies Allergy Verified 02/22/24 19:21 PFSH Acute PFSH: Medical History (Updated 11/21/24 @ 16:32 by Lina Richards MD) Dyspnea on exertion Peripheral edema Lymphedema Venous stasis dermatitis Hx of fracture of ankle Arthritis DJD (degenerative joint disease) Abdominal hernia Sliding hiatal hernia Hypothyroidism Insomnia Gastroenteritis DDD (degenerative disc disease) Restless legs Pulmonary nodule Diverticulitis Hx of fracture of tibia Dementia Age related osteoporosis Mixed incontinence History of colon polyps COVID Atrial fibrillation with RVR COPD (chronic obstructive pulmonary disease) Anal fissure Chronic back pain Lymphedema of both lower extremities Mixed hyperlipidemia Chronic systolic (congestive) heart failure Essential hypertension Surgical History History of amputation of toe Hx of blepharoplasty History of bladder surgery History of colonoscopy years ago History of hysterectomy Family History Sister Stroke CAD (coronary artery disease) [place] @ 75 Hypertension Brother Cancer Father Cancer Social History Smoking and tobacco/nicotine status: tobacco/nicotine user, details unknown Second hand smoke exposure: No Alcohol intake: never Substance/Drug Use: never Adopted: No Caregiver/support person: No Lives independently: Yes Household members: spouse Housing: House Marital status: service: No Current occupational status: retired Do you think of yourself as: Straight/Heterosexual Current gender identity: Female Vitals/I&O/Wt Last Vital Signs Temp 98.3 F 11/21/24 16:26 Pulse 63 11/21/24 16:26 Resp 16 11/21/24 16:26 BP 157/77 11/21/24 16:26 Pulse Ox 97 11/21/24 16:26 O2 Del Method Room Air 11/21/24 16:26 Weight last 48 hrs Weight 71.668 kg Physical Exam Narrative: General: No acute distress, AO x3 HEENT: PERRLA, pupils bilaterally equal and reactive Chest: Normal vesicular breath sounds, no added sounds, equal good air entry bilaterally CVS: S1-S2 regular, no murmurs, no tachycardia, no gallops, no rubs Abdomen: Soft, nontender, no organomegaly, bowel sounds present Neuro: No focal deficits, no facial deformity, AO x3, power 5/5 in all limbs Data 11/22/24 04:20 11/22/24 04:20 A&P Assessment and plan 1. ST elevation myocardial infarction (STEMI): Appreciate cardiology recommendations. Post emergent cardiac catheterization. Concern for thromboembolic occlusion of distal LAD and distal group of LCx. Plan for anticoagulation for now. Continue with aspirin, restart Eliquis 5 mg twice daily. Check A1c, lipid panel. Check echocardiogram. 2. Paroxysmal atrial fibrillation with RVR: Currently rate controlled. Continue with home dose of digoxin. Check digoxin level. Telemetry. Anticoagulation as above 3. CHF (congestive heart failure): Echocardiogram. Currently euvolemic. Fluid restriction to less than 1500 cc. 4. Essential hypertension: Goal blood pressure less than 140/90 mmHg. Continue with home dose of lisinopril, amlodipine for now. Uptitrate as for goal blood pressure. 5. Dementia: Continue with home dose of donepezil, duloxetine. Plan: CODE STATUS: N.p.o. Eliquis will be sufficient for DVT prophylaxis Protonix for PUD prophylaxis PDMP PDMP Reviewed: Not Reviewed Attestations Medical Necessity Statement*: Admission for more than 2 midnights for management of chest pain with concerns for STEMI with possible thromboembolic occlusion Diagnoses ST elevation myocardial infarction (STEMI) I21.3 Paroxysmal atrial fibrillation with RVR I48.0 CHF (congestive heart failure) I50.9 Essential hypertension I10 Dementia F03.90
[2024-11-21 17:29] LABS: Lactic Sepsis W/Reflex 2.0 mmol/L (0.5-2.2)
[2024-11-21 17:37] LABS: Procalcitonin 0.05 ng/mL (0-0.5)
--- NOTE | 2024-11-21 17:58 | P.PCN_ITS ---
Procedure Note: Date of procedure: 11/21/24 Pre-procedure diagnosis: ST elevation RI Post-procedure diagnosis: same Procedure: Left heart cath was performed Left main normal LAD has luminal irregularities with very distal apical thrombotically occluded vessel not amenable to intervention because of very distal and small caliber nature Left circumflex is moderate-sized in caliber vessel however groove circumflex has KAMINI II flow it appeared to be small caliber vessel with possible thrombus not amenable to intervention due to the caliber RCA is large size and caliber vessel without significant stenosis LV gram is suggestive of mildly to moderately depressed ejection fraction 45 to 50% Patient was not on anticoagulation because of A-fib most likely explanation of distal LAD and distal groove circumflex thrombus is atrial fibrillation resulted in embolic phenomena Plan: Anticoagulation with gnosticism of Eliquis once radial band off, patient received already 4000 heparin last ACT was 180 Continue aspirin statin, continue home medications Continue Plavix for now at the time of discharge we will switch patient to Eliquis and Plavix for RI and A-fib. Aspirin will be stopped because of high risk for bleeding Continue Protonix. Echocardiogram in the morning Full note to be dictated Coding Level of Care Code Acute Code for [facility]
--- NOTE | 2024-11-21 18:01 | PM.PN ---
Subjective Subjective: Patient presented with chest pain, she has underlying dementia and some confusion therefore her she is not really be able to tell us whether she has chest pain or not she was taken to the Speech [facility] Language [facility] noted to have very distal LAD and distal groove circumflex thrombus most likely secondary to embolic phenomena from atrial fibrillation. There was no obvious plaque. I learned from her that patient is not taking anticoagulation because of possible anemia in the past. Since thrombus is very distal and blood vessels are small over the end segment, we decided to treated with medically and with anticoagulation. Vitals/I&O/Wt Last Vital Signs Temp 98.3 F 11/21/24 16:26 Pulse 77 11/21/24 17:58 Resp 22 H 11/21/24 17:58 BP 149/83 11/21/24 17:58 Pulse Ox 98 11/21/24 17:58 O2 Del Method Room Air 11/21/24 17:58 Weight last 48 hrs Weight 158 lb Physical Exam Const: OTHER: GENERAL: Patient is alert, awake and oriented x3. HEART: Regular S1 and S2. No murmur, rub or gallop. LUNGS: Clear to auscultate bilaterally. CENTRAL NERVOUS SYSTEM: Grossly nonfocal. EXTREMITIES: Lower extremities with out edema bilaterally. Data 11/21/24 16:32 11/21/24 16:32 A&P Assessment and plan 1. ST elevation myocardial infarction (STEMI): 2. Mixed hyperlipidemia: 3. CHF (congestive heart failure): Plan: Left heart cath was performed, anatomy as follows Left main normal LAD has luminal irregularities with very distal apical thrombotically occluded vessel not amenable to intervention because of very distal and small caliber nature Left circumflex is moderate-sized in caliber vessel however groove circumflex has KAMINI II flow it appeared to be small caliber vessel with possible thrombus not amenable to intervention due to the caliber RCA is large size and caliber vessel without significant stenosis LV gram is suggestive of mildly to moderately depressed ejection fraction 45 to 50% Patient was not on anticoagulation because of A-fib most likely explanation of distal LAD and distal groove circumflex thrombus is atrial fibrillation resulted in embolic phenomena Plan: Anticoagulation with jainism of Eliquis once radial band off, patient received already 4000 heparin last ACT was 180 Continue aspirin statin, continue home medications Continue Plavix for now at the time of discharge we will switch patient to Eliquis and Plavix for OK and A-fib. Aspirin will be stopped because of high risk for bleeding Continue Protonix. Echocardiogram in the morning PDMP PDMP Reviewed: Not Reviewed Attestations Medical Necessity Statement*: Patient require continuation of hospitalization for above defined care Coding Level of Care Code Acute Code for Chg Fwd Diagnoses ST elevation myocardial infarction (STEMI) I21.3 Mixed hyperlipidemia E78.2 CHF (congestive heart failure) I50.9
--- NOTE | 2024-11-21 18:04 | PC.NURSE ---
Patient transferred to CSU from director of cardiac cath lab with a right radial TR-band at 1755.
--- NOTE | 2024-11-21 18:06 | USCV_ITS ---
Vangie, Arielle Age: 83 Gender: F : 1940 Exam Date: 11/21/2024 18:53 Ordering Phys: Zohra Russell MD ([email or web address]) Technologist: HARSHAD Exam Location: [facility] [place] Indication: ST eleveation MA BP: 149 / 83 HR: 81 Rhythm: Atrial fibrillation Technical Quality: Adequate MEASUREMENTS (Male / Female) Normal Values 2D ECHO LV Diastolic Diameter PLAX 4.0 cm 4.2 - 5.9 / 3.9 - 5.3 cm LV Systolic Diameter PLAX 2.4 cm IVS Diastolic Thickness 2.0 cm 0.6 - 1.0 / 0.6 - 0.9 cm IVS Systolic Thickness 3.1 cm LVPW Diastolic Thickness 1.5 cm 0.6 - 1.0 / 0.6 - 0.9 cm LVPW Systolic Thickness 1.9 cm LVOT Diameter 1.9 cm LV Ejection Fraction 2D Teich 71.1 % LV Ejection Fraction MOD 4C 52.0 % LV Ejection Fraction MOD 2C 86.8 % LV Ejection Fraction 2C AL 57.5 % LA Diameter 6.9 cm Aorta at Sinotubular Diameter 3.0 cm IVC Diameter 1.5 cm M-MODE LA Ao Ratio MM 1.8 AV Cusp Separation MM 1.9 cm DOPPLER AV Peak Velocity 136.0 cm/s LVOT Peak Velocity 137.0 cm/s AV Area Cont Eq vti 2.8 cm squared AV Area Cont Eq pk 2.8 cm squared MV Peak Velocity 134.0 cm/s MV Area PHT 5.0 cm squared Mitral E to A Ratio 0.0 TV Peak Velocity 310.0 cm/s TR Peak Velocity 323.0 cm/s TR Peak Gradient 41.7 mmHg TV Peak E Velocity 59.0 cm/s PV Peak Velocity 130.0 cm/s FINDINGS Left Ventricle Normal left ventricular size, systolic function and wall thickness, with no regional wall motion abnormalities. Left ventricular ejection fraction is estimated at 60 %. In the presence of atrial fibrillation diastolic function cannot be assessed accurately. Right Ventricle Normal right ventricular size. Normal right ventricular systolic function. Moderate pulmonary hypertension. Moderate pulmonary hypertension, RVSP 41 mmHg. Right Atrium The right atrium is normal in size. Left Atrium Moderately increased left atrial size. Mitral Valve Mildly thickened mitral valve. No mitral valve stenosis. Severe mitral valve regurgitation. Aortic Valve Moderate aortic valve calcification.aortic valve sclerosis without stenosis. [id number] aortic valve regurgitation. Tricuspid Valve Severe tricuspid valve regurgitation. Pulmonic Valve Structurally normal pulmonic valve without significant stenosis. There is no pulmonic regurgitation. Pericardium Normal pericardium without effusion. Aorta Normal ascending aorta dimension. IVC The inferior vena cava appears normal. CONCLUSIONS Normal left ventricular size, systolic function and wall thickness, with no regional wall motion abnormalities. Left ventricular ejection fraction is estimated at 60 %. In the presence of atrial fibrillation diastolic function cannot be assessed accurately. Normal right ventricular size. Normal right ventricular systolic function. Moderate pulmonary hypertension. Moderate pulmonary hypertension, RVSP 41 mmHg. Moderately increased left atrial size. Mildly thickened mitral valve. No mitral valve stenosis. Severe mitral valve regurgitation. Moderate aortic valve calcification.aortic valve sclerosis without stenosis. [id number]-[id number] aortic valve regurgitation. Severe tricuspid valve regurgitation. Right atrial pressure is around 10 mm of mercury. Zohra Russell MD (Electronically Signed) Final Date: 21 November 2024 20:36 S
[2024-11-21] MEDS: pantoprazole 40 mg SDV IVP (18:35)
[2024-11-21 18:44] LABS: Iron 35 ug/dL (37-145); Thyroid Stimulating Hormone 2.50 uIU/mL (0.27-4.20); Total Iron Binding Capacity 448 mcg/dl; Unsaturated Iron Binding 413 ug/dL (112-347); Vitamin B12 551 pg/mL (232-1245)
[2024-11-21 19:22] LABS: Troponin 5 2HR 186.9 ng/L (0-10); Troponin 5 2HR Delta 141.9 ABS# (0-10)
[2024-11-21 20:00] LABS: Glucose Urine UA Negative (Normal); Nitrate Urine Negative (Negative)
[2024-11-21 20:05] LABS: Add Urine Microscopic? YES
[2024-11-21 20:11] LABS: Digoxin 0.5 ng/mL (0.6-1.2)
[2024-11-21 20:22] LABS: Specific Gravity, Urine 1.036 (1.005-1.030); UA Slide Review UA Slide Review Perf
--- NOTE | 2024-11-21 20:25 | PC.NURSE ---
Received a call from Dr. Russell regarding status of Mrs. Vences. Notified Dr. Russell that patient complained of chest pain . Discussed findings of picket [employer]. Received orders for nitro paste and can switch to nitro gtt if pain continues.
[2024-11-21 20:49] LABS: Estmated Average Glucose 103; Hemoglobin A1C 5.2 % (4.0-6.0)
[2024-11-21] MEDS: nitroglycerin 1 gm/inch oint Pkt 1 INCH TOPICAL (21:17)
--- NOTE | 2024-11-21 21:55 | ECG_ITS ---
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 Measurements Intervals [place] Rate: 82 P: 0 IA: 0 QRS: -64 QRSD: 80 T: 40 QT: 368 QTc: 431 Interpretive Statements ATRIAL FIBRILLATION with Premature ventricular contractions LOW QRS VOLTAGE IN PRECORDIAL LEADS [QRS DEFLECTION < 1.0 mV IN CHEST LEADS] PATTERN CONSISTENT WITH PULMONARY DISEASE POSSIBLE RIGHT VENTRICULAR CONDUCTION DELAY [RSR (QR) IN V1/V2] LEFT ANTERIOR FASCICULAR BLOCK [QRS AXIS <= -45, QR IN I, RS IN II] MINIMAL ST DEPRESSION [0.025+ mV ST DEPRESSION] Compared to ECG 11/21/2024 16:17:27 Low QRS voltage now present Early repolarization no longer present ST (T wave) deviation still present Electronically Signed On 11-22-2024 21:58:10 CDT by Vidal Christopher M.D. [email or web address]
[2024-11-21 23:00] LABS: Troponin 5 6HR 921.7 ng/L (0-10); Troponin 5 6HR Delta 876.7 ng/L (0-12)
--- NOTE | 2024-11-21 23:26 | ECG_ITS ---
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 Measurements Intervals [place] Rate: 84 P: 0 FL: 0 QRS: -75 QRSD: 93 T: 1 QT: 366 QTc: 434 Interpretive Statements ATRIAL FIBRILLATION LOW QRS VOLTAGE IN PRECORDIAL LEADS [QRS DEFLECTION < 1.0 mV IN CHEST LEADS] POSSIBLE RIGHT VENTRICULAR CONDUCTION DELAY [RSR (QR) IN V1/V2] LEFT ANTERIOR FASCICULAR BLOCK [QRS AXIS <= -45, QR IN I, RS IN II] POSSIBLE ANTERIOR MYOCARDIAL INFARCTION , OF INDETERMINATE AGE [30 ms Q WAVE IN V3/V4, OR R < 0.2 mV IN V4] Compared to ECG 11/21/2024 21:55:08 Myocardial infarct finding now present ST (T wave) deviation no longer present Electronically Signed On 11-22-2024 21:56:12 CDT by Vidal Christopher M.D. [email or web address]
[2024-11-21] MEDS: morphine 4 mg/mL SDV 1 mL 2 MG IVP (23:31)
[2024-11-22] VITALS (22 sets, daily range): BP systolic 52–158; BP diastolic 36–103; PULSE 56–94; RESP 9–20; TEMP 36.5–37; O2SAT 93–100
[2024-11-22] MEDS: nitroglycerin 1 gm/inch oint Pkt 1 INCH TOPICAL ×2 (01:57→08:22)
[2024-11-22 04:44] LABS: Hematocrit 29.8 % (36-47); Hemoglobin 8.40 g/dL (11.27-16.99); Mean Corpuscular HGB Conc 28.2 g/dL (30-55); Mean Corpuscular Hemoglobin 21.5 pg (27-33); Mean Corpuscular Volume 76.2 fl (85-98); Nucleated Red Blood Cells % 0 %; Platelet Count 233 10^3/cmm (157-399); Red Blood Count 3.91 10^6/uL (3.85-5.65); White Blood Count 9.09 10^3/uL (3.29-11.43)
[2024-11-22 05:04] LABS: Alanine Aminotransferase 14 U/L (0-33); Albumin Level 3.5 g/dL (3.5-5.2); Alkaline Phosphatase 70 U/L (35-105); Anion Gap 12.9 (5-19); Aspartate Amino Transferase 88 U/L (0-32); Blood Urea Nitrogen 7 mg/dL (8-23); Calcium 9.1 mg/dL (8.5-10.5); Carbon Dioxide 23 mmol/L (22-29); Chloride 101 mmol/L (98-107); Creatinine Clr Calc Pharmacy 55.7476; Globulin 2.6 g/dL (1.3-4.6); Glucose 113 mg/dL (65-115); Magnesium 1.8 mg/dL (1.7-2.3); Osmolality Calculated 275 mOsm/kg (285-295); Potassium 3.9 mmol/L (3.5-5.1); Sodium 133 mmol/L (136-145); Total Protein 6.1 g/dL (6.6-8.7)
[2024-11-22 05:08] LABS: Cholesterol 163 mg/dL (0-200); HDL Cholesterol 58 mg/dL (60-100); Triglycerides 233 mg/dL (0-150)
[2024-11-22] MEDS: morphine 4 mg/mL SDV 1 mL 2 MG IVP (06:34)
--- NOTE | 2024-11-22 08:38 | P.PN_ITS ---
Subjective 2 Subjective: She had some chest pain overnight, pain free currently. Vitals/I&O/Wt Last Vital Signs Temp 97.7 F 11/22/24 08:00 Pulse 86 11/22/24 08:22 Resp 17 11/22/24 08:00 BP 150/96 11/22/24 08:22 Pulse Ox 95 11/22/24 08:00 O2 Del Method Room Air 11/22/24 03:56 11/21/24 11/22/24 11/22/24 22:59 06:59 14:59 Intake Total 1240 / 1240 Output Total 400 / 400 0 / 400 Balance -400 / 840 1240 / 840 Weight last 48 hrs Weight 156 lb 9.6 oz Weight 156 lb 12.8 oz Weight 155 lb Weight 158 lb Physical Exam 2 Const: COMMON NORMALS: no acute distress and patient oriented x3 GENERAL APPEARANCE: cooperative and comfortable ORIENTATION/CONSCIOUSNESS: Yes awake, Yes oriented to person, Yes oriented to place and Yes oriented to time Chest: COMMONS NORMALS: normal inspection of the chest and normal palpation of entire chest wall CHEST: Yes Symmetrical chest wall rise Resp: COMMON NORMALS: normal respiratory effort, No retractions, No use of accessory muscles and clear to auscultation bilaterally EFFORT & INSPECTION: Yes symmetric chest movement AUSCULTATION: clear to auscultation bilaterally Cardio: COMMON NORMALS: regular rate, regular rhythm, S1 normal heart sound present, S2 normal heart sound present, No gallops present (Cardio), No clicks present (Cardio), No murmurs present (Cardio) and No rub (Cardio) RATE: r egular rate RHYTHM: regular rhythm HEART SOUNDS: S1 normal heart sound present and S2 normal heart sound present PERIPHERAL PULSES: radial pulses present Extremity: COMMON NORMALS: no pedal edema Neuro: COMMON NORMALS: patient oriented x3 and moves all extremities S ENSORIUM/ORIENTATION: Yes oriented to person, Yes oriented to place and Yes oriented to time Data 11/22/24 04:20 11/22/24 04:20 A&P Assessment and plan 1. ST elevation myocardial infarction (STEMI): 2. Mixed hyperlipidemia: 3. CHF (congestive heart failure): Plan: Eliquis had been stopped due to anemia/bleeding. She has been restarted on Eliquis as of yesterday, will continue to observe hemoglobin overnight for stability. It is felt she had STEMI due to thrombolic causes while she was not anticoagulated for atrial fibrillation. Will also add isosorbide mononitrate 30mg daily, stopping Plavix due to elevated bleeding risk. If she does well overnight will plan for discharge home tomorrow. PDMP PDMP Reviewed: Not Reviewed Attestations 2 Medical Necessity Statement*: possible DC tomorrow Coding Level of Care Code Acute Code for [facility] Fwd Diagnoses ST elevation myocardial infarction (STEMI) I21.3 Mixed hyperlipidemia E78.2 CHF (congestive heart failure) I50.9
--- NOTE | 2024-11-22 09:03 | PC.CHAP ---
Pastoral Care Encounter/Spiritual Assessment Type of Contact [] Declined intranet support visit [] Patient/Family/Request visit [] Outpatient visit [] Follow-up visit [] Physician referral [] Code/Alert [x] Routine visit [] Staff referral [] Actively dying [] Patient sleeping [x] Family support [] [] Out of room [] Palliative care [] [] Receiving care in room [] Pre-surgical visit [] Trauma [] Long length of stay [] ICU visit [] Other: Relational/Emotional Strength [x] Patient feels connected with others/family/visitors/staff [] Distress [] Loneliness/isolation [] Abandonment Spirituality of Patient [x] Person of Ashleigh [] Attends Restorationist of their Ashleigh [x] Believes in Prayer [] Reads Bible or Methodist materials [] There are Spiritual issues to be addressed Senior Software Quality Analyst Interventions [x] Prayer [x] Active listening [x] Non-anxious presence [x] Spiritual/emotional support [] Crisis/trauma care [] Spiritual counseling [] Bereavement support [] Provided bereavement packet [] Provided Bible/devotional materials [] Provided toy/stuffed animal, coloring book to patient or family member [] Provided Communion [] Anointing/[place] [] Salvation [x] Completed spiritual assessment [] Other: Impact on Illness or Injury [] Angry [] Fearful [] Anxious [] Often cries [] Exhaustion [] Unable to work [] Unable to attend congregation [] Unable to walk/stand [] Unable to read [] Unable to drive [] Unable to eat/drink [] Unable to sleep [] Unable to be with family [] Patient intubated [] Other: Summary Time spent with patient 10 min
--- NOTE | 2024-11-22 10:33 | P.PN_ITS ---
Subjective 2 Subjective: Overnight patient had occasional episodes of chest pain. Today morning states she is feeling a lot better. Seen with at bedside. Denies any nausea, vomiting, headache. Vitals/I&O/Wt Last Vital Signs Temp 97.7 F 11/22/24 08:00 Pulse 86 11/22/24 08:22 Resp 17 11/22/24 08:00 BP 150/96 11/22/24 08:22 Pulse Ox 95 11/22/24 08:00 O2 Del Method Room Air 11/22/24 03:56 11/21/24 11/22/24 11/22/24 22:59 06:59 14:59 Intake Total 1240 / 1240 480 / 480 Output Total 400 / 400 0 / 400 1450 / 1450 Balance -400 / -400 1240 / 840 -970 / -970 Weight last 48 hrs Weight 71.033 kg Weight 71.123 kg Weight 70.307 kg Weight 71.668 kg Physical Exam 2 Narrative: General: No acute distress, AO x3 HEENT: PERRLA, pupils bilaterally equal and reactive Chest: Normal vesicular breath sounds, no added sounds, equal good air entry bilaterally CVS: S1-S2 regular, no murmurs, no tachycardia, no gallops, no rubs Abdomen: Soft, nontender, no organomegaly, bowel sounds present Neuro: No focal deficits, no facial deformity, AO x3, power 5/5 in all limbs Data 11/22/24 04:20 11/22/24 04:20 A&P Assessment and plan 1. ST elevation myocardial infarction (STEMI): Appreciate cardiology recommendations. Post emergent cardiac catheterization. Concern for thromboembolic occlusion of distal LAD and distal group of LCx. Plan for anticoagulation for now. Continue with aspirin, Eliquis 5 mg twice daily. Monitor hemoglobin Appreciate A1c, lipid panel. Echocardiogram done. Results appreciated. Echocardiogram results shows EF of 60% with moderate pulmonary hypertension, RVSP of 41 mmHg, no regional wall motion abnormality, moderately increased LA size, mild to moderate aortic valve regurgitation. Delta troponin positive. Add metoprolol 25 mg twice daily. Imdur 30 mg oral daily. 2. Paroxysmal atrial fibrillation with RVR: Currently rate controlled. Continue with home dose of digoxin. Appreciate subtherapeutic digoxin levels. Telemetry. Anticoagulation as above 3. Chronic diastolic congestive heart failure: Echocardiogram as above Currently euvolemic. Fluid restriction to less than 1500 cc. 4. Essential hypertension: Goal blood pressure less than 140/90 mmHg. Continue with home dose of lisinopril, amlodipine for now. Uptitrate as for goal blood pressure. 5. Dementia: Continue with home dose of donepezil, duloxetine. 6. Upper GI bleed: Recent. Treated within last 1 month at [facility]. Eliquis was withheld. Currently hemoglobin stable Currently patient requires anticoagulation given concerns for thromboembolic occlusion of LAD/LCx. Monitor hemoglobin. Continue Protonix 40 mg twice daily, Carafate ACHS. Plan: CODE STATUS: Cardiac diet Eliquis will be sufficient for DVT prophylaxis Protonix for PUD prophylaxis PDMP PDMP Reviewed: Not Reviewed Attestations 2 Medical Necessity Statement*: Requires further hospitalization for management of ST elevation [place] due to thromboembolic event leading to occlusion of LAD, recent upper GI bleed Diagnoses ST elevation myocardial infarction (STEMI) I21.3 Paroxysmal atrial fibrillation with RVR I48.0 Chronic diastolic congestive heart failure I50.32 Heart failure chronicity: chronic Heart failure type: diastolic Essential hypertension I10 Dementia F03.90 Dementia type: Alzheimer's Dementia severity: moderate Upper GI bleed K92.2
[2024-11-22] MEDS: sucralfate 1 gm/10 mL Oral Liq UDC PO ×3 (11:57→21:01)
--- NOTE | 2024-11-22 12:08 | PC.NURSE ---
Cardiology is updated and Dr. Cordova is updated about her blood pressure is 87/57. Order given to hold metoprolol until SBP above 110 then resume metoprolol at 12.5mg BID.
[2024-11-22] MEDS: pantoprazole 40 mg SDV IVP (17:48)
[2024-11-22] MEDS: HYDROcodone-acetaminophen 5-325 mg Tablet 1 TAB PO ×2 (17:59→21:00)
[2024-11-22] MEDS: albumin 12.5 GM/250 ML VIAL IV (21:41)
[2024-11-22 22:48] LABS: Hematocrit 26.2 % (36-47); Hemoglobin 7.60 g/dL (11.27-16.99)
[2024-11-22] MEDS: norepinephrine 4 MG/250 ML BAG 11.25 MG IV (23:02)
--- NOTE | 2024-11-22 23:54 | PC.NURSE ---
2100- During med pass recheck patients BP for metoprolol dose. Patient BP is75/[address] Cox regarding BP, discussed nitro patch, fluids, assessment findings, and cath results. MD to place orders for albumin and stat H&H then recheck 1 hour after starting albumin. 2229- Rechecked patients BP with right arm reading 72/47 and left arm 67/36. Notified Dr. Cox and received orders to start levo at a fixed rate of 3 mcg/hr and get a ICU bed. At this moment ICU is full but house supervisior is getting a bed. Called Dr. cox back regarding ICU bed status and H&H results. Received orders just to start the levo at 3 mcgs and MD to order a unit of blood.
[2024-11-23] VITALS (75 sets, daily range): BP systolic 84–155; BP diastolic 48–104; PULSE 49–86; RESP 3–35; TEMP 36.3–36.7; O2SAT 90–100
--- NOTE | 2024-11-23 03:01 | PC.NURSE ---
Patient transfer to ICU 6. Tanisha RN at bedside to get patient oriented to unit. Belongings sent with patient. Rambo Vences was updated a few hours ago that patient was going to be moved to ICU.
[2024-11-23] MEDS: pantoprazole 40 mg SDV IVP ×2 (08:32→17:05)
[2024-11-23] MEDS: sucralfate 1 gm/10 mL Oral Liq UDC PO ×4 (08:32→20:40)
--- NOTE | 2024-11-23 09:07 | P.PN_ITS ---
Subjective 2 Subjective: She had drop in blood pressure and hemoglobin, down to 7.6 overnight, required transfusion, levophed for a short time. BP stabilized in 120/70 range now. She reports some lower abdominal pain that started 2 days ago, no vomiting, no bloody stools noted. Denies chest pain. Vitals/I&O/Wt Last Vital Signs Temp 98.0 F 11/23/24 08:30 Pulse 79 11/23/24 08:30 Resp 12 11/23/24 08:00 BP 122/79 11/23/24 08:30 Pulse Ox 99 11/23/24 08:30 O2 Del Method Room Air 11/23/24 08:30 11/22/24 11/23/24 11/23/24 22:59 06:59 14:59 Intake Total 720 / 2328.5 888.5 / 2328.5 Output Total 300 / 1750 Balance 720 / 578.5 588.5 / 578.5 Weight last 48 hrs Weight 157 lb Weight 157 lb Weight 156 lb 9.6 oz Weight 156 lb 12.8 oz Weight 155 lb Weight 158 lb Physical Exam 2 Const: COMMON NORMALS: no acute distress and patient oriented x3 Chest: COMMONS NORMALS: normal inspection of the chest and normal palpation of entire chest wall CHEST: Yes Symmetrical chest wall rise Resp: COMMON NORMALS: normal respiratory effort, No retractions, No use of accessory muscles and clear to auscultation bilaterally EFFORT & INSPECTION: Yes symmetric chest movement AUSCULTATION: clear to auscultation bilaterally Cardio: COMMON NORMALS: S1 normal heart sound present, S2 normal heart sound present, No gallops present (Cardio), No clicks present (Cardio), No murmurs present (Cardio) and No rub (Cardio) RHYTHM: abnormal rhythm irregularly irregular HEART SOUNDS: S1 normal heart sound present and S2 normal heart sound present PERIPHERAL PULSES: radial pulses present, posterior tibial pulses present and dorsalis pedis present Neuro: COMMON NORMALS: patient oriented x3 and moves all extremities Psych: COMMON NORMALS: mental status grossly normal and cooperative Data 11/22/24 22:17 11/22/24 04:20 A&P Assessment and plan 1. ST elevation myocardial infarction (STEMI): 2. Afib: 3. Upper GI bleed: 4. Essential hypertension: Plan: Plavix was discontinued yesterday, stopped aspirin this morning. For now Eliquis is continued, but she requires workup to determine source of bleeding, her options are complicated given the upper GI bleed 1 month ago. However with the STEMI due to thrombus suspected due to emboli from atrial fibrillation, anticoagulation is indicated if at all possible to prevent future embolization. Will discuss with hospitalist service to determine options for GI bleed workup, including upper endoscopy. PDMP PDMP Reviewed: Not Reviewed Attestations 2 Medical Necessity Statement*: bleeding suspected GI, transfusion Coding Level of Care Code Acute Code for [facility] Fw Diagnoses ST elevation myocardial infarction (STEMI) I21.3 Afib I48.91 Upper GI bleed K92.2 Essential hypertension I10
--- NOTE | 2024-11-23 09:58 | PC.SOCIAL ---
IMM Update Updated pt on IMM. No questions voiced. Provided pt a copy. Initialed,dated, & timed a copy & placed in chart.
[2024-11-23 10:41] LABS: Hematocrit 36.7 % (36-47); Hemoglobin 10.40 g/dL (11.27-16.99); Mean Corpuscular HGB Conc 28.3 g/dL (30-55); Mean Corpuscular Hemoglobin 23.4 pg (27-33); Mean Corpuscular Volume 82.5 fl (85-98); Nucleated Red Blood Cells % 0 %; Platelet Count 209 10^3/cmm (157-399); Red Blood Count 4.45 10^6/uL (3.85-5.65); White Blood Count 8.47 10^3/uL (3.29-11.43)
[2024-11-23 11:00] LABS: Alanine Aminotransferase 15 U/L (0-33); Albumin Level 3.9 g/dL (3.5-5.2); Alkaline Phosphatase 66 U/L (35-105); Anion Gap 16.0 (5-19); Aspartate Amino Transferase 81 U/L (0-32); Blood Urea Nitrogen 12 mg/dL (8-23); Calcium 9.4 mg/dL (8.5-10.5); Carbon Dioxide 22 mmol/L (22-29); Chloride 100 mmol/L (98-107); Creatinine Clr Calc Pharmacy 44.6235; Globulin 2.6 g/dL (1.3-4.6); Glucose 99 mg/dL (65-115); Magnesium 2.0 mg/dL (1.7-2.3); Osmolality Calculated 278 mOsm/kg (285-295); Potassium 4.0 mmol/L (3.5-5.1); Sodium 134 mmol/L (136-145); Total Protein 6.5 g/dL (6.6-8.7)
--- NOTE | 2024-11-23 13:34 | P.PN_ITS ---
Subjective 2 Subjective: Overnight patient had refractory hypotension not improving with fluid bolus and was transferred to ICU for Levophed. She was found to have a low hemoglobin and 1 unit of blood transfusion was given. Today morning on examination she is on 2 of Levophed with mean artery pressure of around 65-70. Sitting up in chair. Denies any nausea, vomiting. Vitals/I&O/Wt Last Vital Signs Temp 98.0 F 11/23/24 08:30 Pulse 76 11/23/24 11:30 Resp 13 11/23/24 11:30 BP 118/73 11/23/24 12:00 Pulse Ox 100 11/23/24 11:30 O2 Del Method Room Air 11/23/24 11:00 11/22/24 11/23/24 11/23/24 22:59 06:59 14:59 Intake Total 720 / 1440 888.5 / 2328.5 245.125 / 245.125 Output Total 300 / 1750 550 / 550 Balance 720 / -10 588.5 / 578.5 -304.875 / -304.875 Weight last 48 hrs Weight 71.214 kg Weight 71.214 kg Weight 71.033 kg Weight 71.123 kg Weight 70.307 kg Weight 71.668 kg Physical Exam 2 Narrative: General: No acute distress, AO x3 HEENT: PERRLA, pupils bilaterally equal and reactive Chest: Normal vesicular breath sounds, no added sounds, equal good air entry bilaterally CVS: S1-S2 regular, no murmurs, no tachycardia, no gallops, no rubs Abdomen: Soft, nontender, no organomegaly, bowel sounds present Neuro: No focal deficits, no facial deformity, AO x3, power 5/5 in all limbs Data 11/23/24 10:28 11/23/24 10:28 Micro: Microbiology 11/23/24 10:21 Occult Blood (FIT) - Final Stool A&P Assessment and plan 1. Shock: Maintain mean artery pressure 65. Hold off on antihypertensive. Hold off on amlodipine, lisinopril, Imdur, metoprolol. Wean Levophed accordingly. 2. Anemia: Post 1 unit blood transfusion. Recent history of upper GI bleed. Hemoglobin improved from 7.6-10.4 after 1 unit of transfusion. Repeat hemoglobin every 8 hours. If hemoglobin persistently trending down will need to transfer patient to tertiary center for further GI workup. 3. ST elevation myocardial infarction (STEMI): Appreciate cardiology recommendations. Post emergent cardiac catheterization. Concern for thromboembolic occlusion of distal LAD and distal group of LCx. Plan for anticoagulation for now. Continue with aspirin,, statin. Hold off on Eliquis for now. Discussed with cardiology. For now we will plan to transition to heparin drip while monitoring hemoglobin every 8 hours. If hemoglobin trends down or any episodes of melena, patient will most likely need further GI workup. Appreciate A1c, lipid panel. Echocardiogram done. Results appreciated. Echocardiogram results shows EF of 60% with moderate pulmonary hypertension, RVSP of 41 mmHg, no regional wall motion abnormality, moderately increased LA size, mild to moderate aortic valve regurgitation. 4. Upper GI bleed: Recent. Treated within last 1 month at [facility]. Eliquis was withheld. Currently hemoglobin stable Currently patient requires anticoagulation given concerns for thromboembolic occlusion of LAD/LCx. Monitor hemoglobin. Continue Protonix 40 mg twice daily, Carafate ACHS. 5. Paroxysmal atrial fibrillation with RVR: Currently rate controlled. Continue with home dose of digoxin. Appreciate subtherapeutic digoxin levels. Telemetry. Anticoagulation as above 6. Chronic diastolic congestive heart failure: Echocardiogram as above Currently euvolemic. Fluid restriction to less than 1500 cc. 7. Essential hypertension: Goal blood pressure less than 140/90 mmHg with mean over 65. Treatment as above. 8. Dementia: Continue with home dose of donepezil, duloxetine. Plan: CODE STATUS: Full code. is the DPOA. Cardiac diet Heparin drip as above Protonix for PUD prophylaxis PDMP PDMP Reviewed: Not Reviewed Attestations 2 Medical Necessity Statement*: Require further hospitalization for management of shock in setting of recent STEMI, thromboembolic in nature in setting of A-fib, anemia requiring blood transfusion in a patient with recent history of GI bleed Critical Care Time: The high probability of a clinically significant, sudden or life threatening deterioration of the patient's [GI, cardiac] system(s) required my full and direct attention, intervention and personal management. The critical care time is as shown. This time is in addition to time spent performing any reported procedures but includes the following: [x] Data and vital sign review and interpretation [x] Patient assessment, examination and intervention [x] Documentation [x] Medication orders and management Critical Care Time (min): 65 Coding Level of Care Code Critical Care >/= 30 minutes Critical care time (in minutes): 65 The high probability of a clinically significant, sudden or life threatening deterioration, as referenced in this documentation, required my full and direct attention, intervention and personal management. The critical care time shown is in addition to time spent performing any reported separately billable procedures and includes the following: [x] Data and vital sign review and interpretation [x ] Patient assessment, examination and intervention [x] Medication orders and management [x] Patient/Family updates as able [x] Care Coordination and Documentation. Other Coding Information This patient has a high probability of clinically significant, sudden or life threatening deterioration of the patient's (neurological/pulmonary/cardiac/renal/ID/endocrine) systems required my full, direct attention, the highest level of physician preparedness for urgent intervention and personal management. I managed/supervised life or organ supporting interventions that required frequent physician assessment. I devoted my full attention in the ICU to the direct care of this patient for the period of time indicated above. Time I spent with family or surrogate(s) is included only if the patient was incapable of providing necessary information or participating in decision making. This time includes the following services provided: Telemetry review Hemodynamic interpretation, assessment and management Review and interpretation of CXR Review and interpretation of lab values Review and interpretation of microbiologic data and culture results Review of medications and administration Review and interpretation of Nutrition requirements and management Discussion of management with other consultants and services Clinical update to family members Diagnoses Shock R57.[address] elevation myocardial infarction (STEMI) I21.3 Upper GI bleed K92.2 Paroxysmal atrial fibrillation with RVR I48.0 Chronic diastolic congestive heart failure I50.32 Heart failure chronicity: chronic Heart failure type: diastolic Essential hypertension I10 Dementia F03.90 Dementia severity: moderate Dementia type: Alzheimer's
[2024-11-23 16:14] LABS: Hematocrit 34.0 % (36-47); Hemoglobin 10.30 g/dL (11.27-16.99)
[2024-11-23] MEDS: heparin drip 25,000 UNIT/500 ML PREMIX 20 UNIT IV (20:44)
[2024-11-23 21:43] LABS: Hematocrit 34.2 % (36-47); Hemoglobin 10.20 g/dL (11.27-16.99)
[2024-11-24] VITALS (41 sets, daily range): BP systolic 91–179; BP diastolic 62–126; PULSE 55–112; RESP 12–31; TEMP 36.2–37.3; O2SAT 83–98
[2024-11-24 03:12] LABS: Hematocrit 35.1 % (36-47); Hemoglobin 10.40 g/dL (11.27-16.99); Mean Corpuscular HGB Conc 29.6 g/dL (30-55); Mean Corpuscular Hemoglobin 23.5 pg (27-33); Mean Corpuscular Volume 79.4 fl (85-98); Nucleated Red Blood Cells % 0 %; Platelet Count 184 10^3/cmm (157-399); Red Blood Count 4.42 10^6/uL (3.85-5.65); White Blood Count 9.89 10^3/uL (3.29-11.43)
[2024-11-24 03:33] LABS: Alanine Aminotransferase 11 U/L (0-33); Albumin Level 3.3 g/dL (3.5-5.2); Alkaline Phosphatase 70 U/L (35-105); Anion Gap 12.7 (5-19); Aspartate Amino Transferase 48 U/L (0-32); Blood Urea Nitrogen 11 mg/dL (8-23); Calcium 9.0 mg/dL (8.5-10.5); Carbon Dioxide 23 mmol/L (22-29); Chloride 103 mmol/L (98-107); Creatinine Clr Calc Pharmacy 49.5816; Globulin 2.7 g/dL (1.3-4.6); Glucose 93 mg/dL (65-115); Magnesium 1.8 mg/dL (1.7-2.3); Osmolality Calculated 279 mOsm/kg (285-295); Partial Thromboplastin Time 101.6 SECONDS (23.9-36.7); Potassium 3.7 mmol/L (3.5-5.1); Sodium 135 mmol/L (136-145); Total Protein 6.0 g/dL (6.6-8.7)
[2024-11-24] MEDS: sucralfate 1 gm/10 mL Oral Liq UDC PO ×4 (06:06→21:48)
--- NOTE | 2024-11-24 06:30 | PC.NURSE ---
Contacted Dr. Barcenas at 2020 when starting heparin drip to inquire about loading dose of heparin that was not ordered. Dr Barcenas confirmed he did not want the loading dose of IVP Heparin given when starting heparin drip.
[2024-11-24] MEDS: pantoprazole 40 mg SDV IVP ×2 (08:39→17:35)
--- NOTE | 2024-11-24 09:45 | PM.PN ---
Subjective Subjective: Hemoglobin improved to 10.4 today, after blood transfusion yesterday. Will continue on heparin for now, monitor for bleeding. No chest pain or shortness of breath. Vitals/I&O/Wt Last Vital Signs Temp 97.6 F 11/24/24 07:30 Pulse 90 11/24/24 09:30 Resp 28 H 11/24/24 09:30 BP 179/116 11/24/24 09:30 Pulse Ox 94 11/24/24 09:30 O2 Del Method Room Air 11/24/24 09:30 11/23/24 11/24/24 11/24/24 22:59 06:59 14:59 Intake Total 500 / 2125.792 1140.667 / 2125.792 Output Total 600 / 1750 600 / 1750 Balance -100 / 375.792 540.667 / 375.792 Weight last 48 hrs Weight 157 lb Weight 157 lb Weight 157 lb Physical Exam Const: COMMON NORMALS: no acute distress and patient oriented x3 Chest: COMMONS NORMALS: normal inspection of the chest and normal palpation of entire chest wall CHEST: Yes Symmetrical chest wall rise Resp: COMMON NORMALS: normal respiratory effort, No retractions, No use of accessory muscles and clear to auscultation bilaterally EFFORT & INSPECTION: Yes symmetric chest movement AUSCULTATION: clear to auscultation bilaterally Cardio: COMMON NORMALS: S1 normal heart sound present, S2 normal heart sound present, No gallops present (Cardio), No clicks present (Cardio), No murmurs present (Cardio) and No rub (Cardio) RHYTHM: abnormal rhythm irregularly irregular HEART SOUNDS: S1 normal heart sound present and S2 normal heart sound present PERIPHERAL PULSES: radial pulses present, posterior tibial pulses present and dorsalis pedis present Neuro: COMMON NORMALS: patient oriented x3 and moves all extremities Psych: COMMON NORMALS: mental status grossly normal and cooperative Data 11/24/24 03:01 11/24/24 03:01 Micro: Microbiology 11/23/24 10:21 Occult Blood (FIT) - Final Stool A&P Assessment and plan 1. Afib: 2. ST elevation myocardial infarction (STEMI): 3. Upper GI bleed: 4. Essential hypertension: Plan: She is stable from cardiac standpoint currently. Will plan to observe her and labs today, if no decrease in hemoglobin can plan to discharge home tomorrow on [facility] and Plavix. PDMP PDMP Reviewed: Not Reviewed Attestations Medical Necessity Statement*: poss DC tomorrow Coding Level of Care Code Acute Code for Chg Fwd Diagnoses Afib I48.91 ST elevation myocardial infarction (STEMI) I21.3 Upper GI bleed K92.2 Essential hypertension I10
[2024-11-24 11:00] LABS: Hematocrit 34.3 % (36-47); Hemoglobin 10.00 g/dL (11.27-16.99)
[2024-11-24 11:19] LABS: Partial Thromboplastin Time 103.6 SECONDS (23.9-36.7)
--- NOTE | 2024-11-24 13:53 | P.PN_ITS ---
Subjective 2 Subjective: No acute events overnight. Patient laying comfortably in bed today. Denies any nausea, vomiting, headache. No episodes of melena. Vitals/I&O/Wt Last Vital Signs Temp 97.6 F 11/24/24 07:30 Pulse 72 11/24/24 10:00 Resp 31 H 11/24/24 10:00 BP 151/79 11/24/24 10:00 Pulse Ox 95 11/24/24 10:00 O2 Del Method Room Air 11/24/24 10:00 11/23/24 11/24/24 11/24/24 22:59 06:59 14:59 Intake Total 500 / 914.672 2594.667 / 2125.792 1030.5 / 1030.5 Output Total 600 / 1150 600 / 1750 Balance -100 / -164.875 540.667 / 111.283 0582.5 / 1030.5 Weight last 48 hrs Weight 71.214 kg Weight 71.214 kg Weight 71.214 kg Physical Exam 2 Narrative: General: No acute distress, AO x3 HEENT: PERRLA, pupils bilaterally equal and reactive Chest: Normal vesicular breath sounds, no added sounds, equal good air entry bilaterally CVS: S1-S2 regular, no murmurs, no tachycardia, no gallops, no rubs Abdomen: Soft, nontender, no organomegaly, bowel sounds present Neuro: No focal deficits, no facial deformity, AO x3, power 5/5 in all limbs Data 11/24/24 10:38 11/24/24 03:01 Micro: Microbiology 11/23/24 10:21 Occult Blood (FIT) - Final Stool A&P Assessment and plan 1. Shock: Maintain mean artery pressure 65. Hold off on antihypertensive. Hold off on amlodipine, lisinopril, Imdur, metoprolol. Wean Levophed accordingly. 2. Anemia: Post 1 unit blood transfusion. Recent history of upper GI bleed. Hemoglobin improved from 7.6-10.4 after 1 unit of transfusion. Repeat hemoglobin every 8 hours. If hemoglobin persistently trending down will need to transfer patient to tertiary center for further GI workup. 3. ST elevation myocardial infarction (STEMI): Appreciate cardiology recommendations. Post emergent cardiac catheterization. Concern for thromboembolic occlusion of distal LAD and distal group of LCx. Plan for anticoagulation for now. Continue with aspirin,, statin. Hold off on Eliquis for now. Discussed with cardiology. For now we will plan to transition to heparin drip while monitoring hemoglobin every 8 hours. If hemoglobin trends down or any episodes of melena, patient will most likely need further GI workup. Appreciate A1c, lipid panel. Echocardiogram done. Results appreciated. Echocardiogram results shows EF of 60% with moderate pulmonary hypertension, RVSP of 41 mmHg, no regional wall motion abnormality, moderately increased LA size, mild to moderate aortic valve regurgitation. 4. Upper GI bleed: Recent. Treated within last 1 month at [facility]. Eliquis was withheld. Currently hemoglobin stable Currently patient requires anticoagulation given concerns for thromboembolic occlusion of LAD/LCx. Monitor hemoglobin. Continue Protonix 40 mg twice daily, Carafate ACHS. 5. Paroxysmal atrial fibrillation with RVR: Currently rate controlled. Continue with home dose of digoxin. Appreciate subtherapeutic digoxin levels. Telemetry. Anticoagulation as above 6. Chronic diastolic congestive heart failure: Echocardiogram as above Currently euvolemic. Fluid restriction to less than 1500 cc. 7. Essential hypertension: Goal blood pressure less than 140/90 mmHg with mean over 65. Treatment as above. 8. Dementia: Continue with home dose of donepezil, duloxetine. Plan: CODE STATUS: Full code. is the DPOA. Cardiac diet Heparin drip as above Protonix for PUD prophylaxis Plan for the day: Hb stable. Continue to monitor Q8h. Post 1 unit of PRBC transfusion. Continue with Protonix twice daily along with Carafate ACHS. C/w heaprin drip for now. If Hb remains stable can switch to eliquis on discharge. Goal blood pressure less than 140/90 when she will need over 65. Blood pressure elevated. Restart home dose of metoprolol 12.5 mg twice daily. Continue with home dose of digoxin. Holding home dose of amlodipine, lisinopril, Imdur. Out of bed to chair. Transfer to [facility]. PDMP PDMP Reviewed: Not Reviewed Attestations 2 Medical Necessity Statement*: Require further hospitalization for management of shock in setting of recent STEMI, thromboembolic in nature in setting of A-fib, anemia requiring blood transfusion in a patient with recent history of GI bleed Critical Care Time: The high probability of a clinically significant, sudden or life threatening deterioration of the patient's [GI, cardiac] system(s) required my full and direct attention, intervention and personal management. The critical care time is as shown. This time is in addition to time spent performing any reported procedures but includes the following: [x] Data and vital sign review and interpretation [x] Patient assessment, examination and intervention [x] Documentation [x] Medication orders and management Critical Care Time (min): 65 Diagnoses Shock R57.9 Anemia D64.9 Anemia type: unspecified type ST elevation myocardial infarction (STEMI) I21.3 Upper GI bleed K92.2 Paroxysmal atrial fibrillation with RVR I48.0 Chronic diastolic congestive heart failure I50.32 Heart failure chronicity: chronic Heart failure type: diastolic Essential hypertension I10 Dementia F03.90 Dementia type: Alzheimer's Dementia severity: moderate
[2024-11-24 19:18] LABS: Partial Thromboplastin Time 59.7 SECONDS (23.9-36.7)
[2024-11-24 21:25] LABS: Hematocrit 35.7 % (36-47); Hemoglobin 10.60 g/dL (11.27-16.99)
[2024-11-24] MEDS: FUROsemide 10 mg/mL SDV 2mL 20 MG IVP (23:13)
[2024-11-25] VITALS (12 sets, daily range): BP systolic 134–180; BP diastolic 78–103; PULSE 68–98; RESP 15–32; TEMP 36.8; O2SAT 90–95
[2024-11-25 02:36] LABS: Partial Thromboplastin Time 61.3 SECONDS (23.9-36.7)
[2024-11-25 05:24] LABS: Hematocrit 37.0 % (36-47); Hemoglobin 11.00 g/dL (11.27-16.99); Mean Corpuscular HGB Conc 29.7 g/dL (30-55); Mean Corpuscular Hemoglobin 22.9 pg (27-33); Mean Corpuscular Volume 77.1 fl (85-98); Nucleated Red Blood Cells % 0 %; Platelet Count 226 10^3/cmm (157-399); Red Blood Count 4.80 10^6/uL (3.85-5.65); White Blood Count 14.21 10^3/uL (3.29-11.43)
[2024-11-25 05:49] LABS: Alanine Aminotransferase 10 U/L (0-33); Albumin Level 3.7 g/dL (3.5-5.2); Alkaline Phosphatase 84 U/L (35-105); Anion Gap 17.5 (5-19); Aspartate Amino Transferase 30 U/L (0-32); Blood Urea Nitrogen 10 mg/dL (8-23); Calcium 9.4 mg/dL (8.5-10.5); Carbon Dioxide 24 mmol/L (22-29); Chloride 98 mmol/L (98-107); Creatinine Clr Calc Pharmacy 49.1464; Globulin 3.3 g/dL (1.3-4.6); Glucose 103 mg/dL (65-115); Osmolality Calculated 281 mOsm/kg (285-295); Potassium 3.5 mmol/L (3.5-5.1); Sodium 136 mmol/L (136-145); Total Protein 7.0 g/dL (6.6-8.7)
[2024-11-25] MEDS: sucralfate 1 gm/10 mL Oral Liq UDC PO (07:45)
[2024-11-25] MEDS: heparin drip 25,000 UNIT/500 ML PREMIX 12 UNIT IV (07:45)
--- NOTE | 2024-11-25 08:20 | P.DS_ITS ---
Discharge Providers Date of Admission: 11/21/24 17:35 Date of Discharge: November 25, 2024 Attending Provider at Admission: Haider Barcenas MD Attending Provider at Discharge: Haider Barcenas MD Consults: Cardiology: Dr. Russell Primary Care Provider: Alison Ramos MD Diagnoses at Discharge Discharge Diagnosis 1. Shock: 2. Anemia: 3. ST elevation myocardial infarction (STEMI): 4. Upper GI bleed: 5. Paroxysmal atrial fibrillation with RVR: 6. Chronic diastolic congestive heart failure: 7. Essential hypertension: 8. Dementia: Reason for Visit Reason for Visit: chest pain Hospital Course Hospital Course Arielle Vences is a 83 year old female with past medical history of atrial fibrillation not currently on anticoagulation for last 1 month because of recent diagnosis of upper GI bleed due to GI arterial rupture for which she was treated a month ago at outside hospital, dementia, hypertension, hypothyroidism presents to the ER today because of concerns of chest pain 30 minutes duration along with nausea. In the ER STEMI was called, patient was given 60 mg of Plavix, 325 mg of aspirin and 4000 units of heparin. Patient was emergently taken to [facility] for left heart cath where she was noted to have a very distal LAD and distal LCx thrombus. Hospitalist service was requested for further management. Patient was started on anticoagulation with Eliquis. During hospitalization she did have occasional episodes of chest pain which resolved with medications and controlling blood pressures. Her hospitalization was complicated by her developing shock with acute anemia. She received monitor blood transfusion and was transiently on vasopressors. After blood transfusion her blood pressures remained stable. Hemoglobin was checked multiple times over the last 2 days and had remained stable. She did not have any episode of melena while she was continued on anticoagulation. She has been discharged in hemodynamically stable condition on oral Eliquis 5 mg twice daily, Plavix 75 mg daily. She is to check her blood pressure daily at home and blood pressure diary. Goal blood pressure less than 140/90 mmHg. She is to follow-up with her PCP within next 1 week for further adjustment of antihypertensive as per goal. She should have a repeat CBC done in 1 week. Physical Exam Narrative: General: No acute distress, AO x3 HEENT: PERRLA, pupils bilaterally equal and reactive Chest: Normal vesicular breath sounds, no added sounds, equal good air entry bilaterally CVS: S1-S2 regular, no murmurs, no tachycardia, no gallops, no rubs Abdomen: Soft, nontender, no organomegaly, bowel sounds present Neuro: No focal deficits, no facial deformity, AO x3, power 5/5 in all limbs Discharge Data Studies Completed and Pending Completed Studies During Hospitalization Category Date Time Status XR chest 1V portable [id number] Stat Exams 11/21/24 16:17 Completed CV. echo complete* [id number] Routine Ultrasound 11/21/24 18:06 Completed Pending at discharge Category Date Time Status [employer] request for service Stat Exams 11/21/24 16:30 Taken PTT [Partial Thromboplastin Time] Timed Lab 11/25/24 16:00 Ordered Platelet Count Q2D Lab 11/27/24 04:00 Ordered Radiology Impressions Chest X-Ray 11/21/24 16:17 IMPRESSION: No acute findings. Echocardiogram: CONCLUSIONS Normal left ventricular size, systolic function and wall thickness, with no regional wall motion abnormalities. Left ventricular ejection fraction is estimated at 60 %. In the presence of atrial fibrillation diastolic function cannot be assessed accurately. Normal right ventricular size. Normal right ventricular systolic function. Moderate pulmonary hypertension. Moderate pulmonary hypertension, RVSP 41 mmHg. Moderately increased left atrial size. Mildly thickened mitral valve. No mitral valve stenosis. Severe mitral valve regurgitation. Moderate aortic valve calcification.aortic valve sclerosis without stenosis. [id number] aortic valve regurgitation. Severe tricuspid valve regurgitation. Right atrial pressure is around 10 mm of mercury. Zohra Russell MD (Electronically Signed) Final Date: 21 November 2024 20:36 Laboratory Results WBC 14.21 10^3/uL (3.29-11.43) H 11/25/24 05:13 RBC 4.80 10^6/uL (3.85-5.65) 11/25/24 05:13 Hgb 11.00 g/dL (11.27-16.99) L 11/25/24 05:13 Hct 37.0 % (36-47) 11/25/24 05:13 MCV 77.1 fl (85-98) L 11/25/24 05:13 MCH 22.9 pg (27-33) L 11/25/24 05:13 MCHC 29.7 g/dL (30-55) L 11/25/24 05:13 RDW 22.4 % (12.1-15.1) H 11/25/24 05:13 Plt Count 226 10^3/cmm (157-399) 11/25/24 05:13 MPV 9.5 fL (7.4-10.4) 11/25/24 05:13 Neut % (Auto) 79.3 % 11/25/24 05:13 Lymph % (Auto) 9.2 % 11/25/24 05:13 [place] % (Auto) 9.5 % 11/25/24 05:13 Eos % (Auto) 1.1 % 11/25/24 05:13 Baso % (Auto) 0.4 % 11/25/24 05:13 Neut # (Auto) 11.26 10^3/uL (1.8-7.7) H 11/25/24 05:13 Lymph # (Auto) 1.3 10^3/uL (0.8-4.8) 11/25/24 05:13 [place] # (Auto) 1.4 10^3/uL (0.2-0.9) H 11/25/24 05:13 Eos # (Auto) 0.2 10^3/uL (0.0-0.8) 11/25/24 05:13 Baso # (Auto) 0.1 10^3/uL (0.0-0.1) 11/25/24 05:13 Nucleated RBC % (auto) 0 % 11/25/24 05:13 Nucleated RBCs # 0.0 /100WBC 11/25/24 05:13 APTT 61.3 SECONDS (23.9-36.7) H 11/25/24 01:49 Sodium 136 mmol/L (136-145) 11/25/24 05:13 Potassium 3.5 mmol/L (3.5-5.1) 11/25/24 05:13 Chloride 98 mmol/L (98-107) 11/25/24 05:13 Carbon Dioxide 24 mmol/L (22-29) 11/25/24 05:13 Anion Gap 17.5 (5-19) 11/25/24 05:13 BUN 10 mg/dL (8-23) 11/25/24 05:13 Creatinine 0.9 mg/dL (0.5-0.9) 11/25/24 05:13 GFR Calculation Not Reportable 11/25/24 05:13 Glucose 103 mg/dL (65-115) 11/25/24 05:13 Estimat Average Glucose 103 11/21/24 16:32 Hemoglobin A1c 5.2 % (4.0-6.0) 11/21/24 16:32 Calculated Osmolality 281 mOsm/kg (285-295) L 11/25/24 05:13 Lactic Acid 2.0 mmol/L (0.5-2.2) 11/21/24 16:32 Calcium 9.4 mg/dL (8.5-10.5) 11/25/24 05:13 Phosphorus 3.1 mg/dL (2.5-4.5) 11/24/24 03:01 Magnesium 1.8 mg/dL (1.7-2.3) 11/24/24 03:01 Iron 35 ug/dL (37-145) L 11/21/24 16:32 TIBC 448 mcg/dl 11/21/24 16:32 % Saturation 7.8 % (20-50) L 11/21/24 16:32 Unsat Iron Binding 413 ug/dL (112-347) H 11/21/24 16:32 Total Bilirubin 1.0 mg/dL (0.15-1.2) 11/25/24 05:13 AST 30 U/L (0-32) 11/25/24 05:13 ALT 10 U/L (0-33) 11/25/24 05:13 Alkaline Phosphatase 84 U/L (35-105) 11/25/24 05:13 Troponin T Baseline 45 ng/L (0-10) H 11/21/24 16:32 Troponin T 120 Minute 186.9 ng/L (0-10) H 11/21/24 18:44 Delta Troponin T 141.9 ABS# (0-10) H* 11/21/24 18:44 Troponin T Hi Sens 6Hr 921.7 ng/L (0-10) H 11/21/24 22:31 Troponin T Hi Sens 6Hr Delta 876.7 ng/L (0-12) H* 11/21/24 22:31 Total Protein 7.0 g/dL (6.6-8.7) 11/25/24 05:13 Albumin 3.7 g/dL (3.5-5.2) 11/25/24 05:13 Globulin 3.3 g/dL (1.3-4.6) 11/25/24 05:13 Triglycerides 233 mg/dL (0-150) H 11/22/24 04:20 Cholesterol 163 mg/dL (0-200) 11/22/24 04:20 LDL Cholesterol, Calc 58 mg/dL (50-129) 11/22/24 04:20 HDL Cholesterol 58 mg/dL (60-100) L 11/22/24 04:20 LDL/HDL Ratio 1.00 RATIO (0.00-3.22) 11/22/24 04:20 Cholesterol/HDL Ratio 2.81 mg/dL (0.0-4.40) 11/22/24 04:20 Lipase 44 U/L (13-60) 11/21/24 16:32 Vitamin B12 551 pg/mL (232-1245) 11/21/24 16:32 Folate 8.8 ng/mL (4.8-37.3) 11/22/24 04:20 Procalcitonin 0.05 ng/mL (0-0.5) 11/21/24 16:32 TSH 2.50 uIU/mL (0.27-4.20) 11/21/24 16:32 Urine Color Yellow (Yellow) 11/21/24 19:43 Urine Appearance Clear (CLEAR) 11/21/24 19:43 Urine pH 5.5 (5-7) 11/21/24 19:43 Ur Specific [place] 1.036 (1.005-1.030) H 11/21/24 19:43 Urine Protein Negative (Negative) 11/21/24 19:43 Urine Glucose (UA) Negative (Normal) 11/21/24 19:43 Urine Ketones Negative (Negative) 11/21/24 19:43 Urine Blood Negative (Negative) 11/21/24 19:43 Urine Nitrate Negative (Negative) 11/21/24 19:43 Urine Bilirubin Negative (Negative) 11/21/24 19:43 Urine Urobilinogen 0.2 mg/dL (Negative) 11/21/24 19:43 Ur Leukocyte Esterase 1+ (Negative) A 11/21/24 19:43 Urine RBC 0-2 /hpf (0-2) 11/21/24 19:43 Urine WBC 0-5 /hpf (0-5) 11/21/24 19:43 Ur Squamous Epith Cells 0-5 /hpf (0-5) 11/21/24 19:43 Amorphous Sediment Not Reportable 11/21/24 19:43 Urine Bacteria None seen /hpf (NONE) 11/21/24 19:43 Hyaline Casts 0.40 /lpf 11/21/24 19:43 Digoxin 0.5 ng/mL (0.6-1.2) L 11/21/24 16:32 Blood Type O Negative 11/23/24 00:00 Rho(D) Type Rh negative 11/23/24 00:00 Antibody Screen Negative 11/23/24 00:00 Crossmatch See Detail 11/23/24 00:00 Procedures Performed Cardiac angiogram: 11/21: Date of procedure: 11/21/24 Pre-procedure diagnosis: ST elevation NJ Post- procedure diagnosis: same Procedure: Left heart cath was performed Left main normal LAD has luminal irregularities with very distal apical thrombotically occluded vessel not amenable to intervention because of very distal and small caliber nature Left circumflex is moderate-sized in caliber vessel however groove circumflex has KAMINI II flow it appeared to be small caliber vessel with possible thrombus not amenable to intervention due to the caliber RCA is large size and caliber vessel without significant stenosis LV gram is suggestive of mildly to moderately depressed ejection fraction 45 to 50% Patient was not on anticoagulation because of A-fib most likely explanation of distal LAD and distal groove circumflex thrombus is atrial fibrillation resulted in embolic phenomena Plan: Anticoagulation with caodaism of Eliquis once radial band off, patient received already 4000 heparin last ACT was 180 Continue aspirin statin, continue home medications Continue Plavix for now at the time of discharge we will switch patient to Eliquis and Plavix for NJ and A-fib. Aspirin will be stopped because of high risk for bleeding Continue Protonix. Echocardiogram in the morning Full note to be dictated Vitals Last Vital Signs Temp 98.2 F 11/25/24 04:30 Pulse 79 11/25/24 06:09 Resp 29 H 11/25/24 06:00 BP 174/99 11/25/24 06:00 Pulse Ox 90 11/25/24 06:00 O2 Del Method Room Air 11/25/24 00:02 Discharge Plan Discharge Patient Disposition: Home Condition: Stable Prescriptions: New atorvastatin 40 mg Tablet 20 mg PO BEDTIME Qty: 30 0RF sucralfate 100 mg/mL Suspension 1 g PO AC&BEDTIME 28 Days Qty: 1000 0RF metoprolol tartrate 25 mg Tablet 25 mg PO BID@0900,2100 Qty: 60 0RF clopidogrel [Plavix] 75 mg tablet 75 mg PO DAILY Qty: 30 0RF Continued levothyroxine 88 mcg tablet 88 mcg PO QAM gabapentin 600 mg tablet 600 mg PO TID loratadine 10 mg tablet 10 mg PO DAILY PRN (Reason: Allergy Symptoms) Myrbetriq 50 mg tablet extended release 24 hr 50 mg PO QAM trazodone 50 mg Tablet 25 - 50 mg PO BEDTIME PRN (Reason: Sleep) cholecalciferol (vitamin D3) 1,250 mcg (50,000 unit) capsule 50,000 unit PO Q7D Rx Instructions: (ON SUNDAYS) nitroglycerin 0.4 mg tablet, sublingual 0.4 mg SUBLINGUAL Q5M PRN (Reason: chest pain) Qty: 30 0RF Rx Instructions: do not exceed 3 doses per episode tizanidine 2 mg tablet 2 mg PO BID pravastatin 40 mg tablet 40 mg PO DAILY amlodipine 10 mg tablet 10 mg PO DAILY Jardiance 10 mg tablet 10 mg PO QAM digoxin 125 mcg (0.125 mg) tablet 125 mcg PO QAM potassium chloride 20 mEq tablet extended release 20 meq PO .FIVE TIMES A DAY montelukast 10 mg Tablet 10 mg PO QAM donepezil 10 mg tablet 10 mg PO QAM alendronate 70 mg tablet 70 mg PO Q7D Rx Instructions: ON THURSDAY duloxetine 60 mg capsule,delayed release(DR/EC) 60 mg PO QAM pantoprazole 40 mg tablet,delayed release (DR/EC) 40 mg PO Q12H nystatin 100,000 unit/gram cream See Rx Instructions .ROUTE .COMPLEX Rx Instructions: APPLY TOPICALLY TO THE AFFECTED AREA THREE TIMES DAILY amoxicillin-pot clavulanate 875-125 mg tablet 1 tab PO BID 5 Days Qty: 10 0RF Eliquis 5 mg tablet 5 mg PO BID Qty: 60 0RF Changed furosemide 20 mg tablet 20 mg PO QAM PRN (Reason: weight gain of 5 lbs) Qty: 10 0RF Discontinued lisinopril 10 mg Tablet 10 mg PO BID Discharge Order = DC NOW: Discharge Order (Routine); Ordered 09/05/25 Ordered By: Haider Barcenas Referrals: Vidal Christopher MD [Physician, Cardiology] - 11/28/24 10:30 am Alison Ramos MD [Primary Care Provider, Internal Medicine] - 12/07/24 9:00 am Patient Instructions: Metoprolol (By mouth) (Lopressor, Toprol XL), Sucralfate (By mouth) (Carafate), Atorvastatin (By mouth) (Lipitor, Atorvaliq), Clopidogrel (By mouth) (Plavix), Heart Catheterization (DC), CHF Stoplight, Opioid Safety, Post Angiogram Home Care Instructions, Patient Portal & Jos[facility]at Instructions Activity Restrictions/Additional Instructions: Check your blood pressure daily at home maintain blood pressure diary. Follow- up with your primary care provider and your cardiology team in next 10 days with a blood pressure diary for further adjustment of antihypertensive. Goal blood pressure is less than 140/90 mmHg. Continue taking Eliquis 5 mg twice daily. Follow-up with your primary care provider in the next 10 days for repeat CBC. Take Protonix twice daily, Carafate 3 times a day. Discharge Attestations Time Spent in Discharge Care*: greater than 30 min Specific Discharge Activities: educating patient, educating and/or supporting family/caregiver, discussing with pcp/other providers, discussing with manager case management/social workers/dc planners, documenting/other paperwork and evaluating patient/reviewing data Status at Discharge: Cognitive status at discharge: cognitively intact , Behavioral status at discharge: cooperative , Functional status at discharge: independent ambulation , Overall status at discharge: patient is back to baseline Quality Metrics Clinical Quality Measures [ No reported AMI, CVA or VTE this stay] Coding Level of Care Code 05109 Total time (in minutes) for Discharge: 65 Diagnoses Shock R57.9 Anemia D64.9 Anemia type: unspecified type ST elevation myocardial infarction (STEMI) I21.3 Upper GI bleed K92.2 Paroxysmal atrial fibrillation with RVR I48.0 Chronic diastolic congestive heart failure I50.32 Heart failure chronicity: chronic Heart failure type: diastolic Essential hypertension I10 Dementia F03.90 Dementia severity: moderate Dementia type: Alzheimer's
[2024-11-25] MEDS: pantoprazole 40 mg SDV IVP (08:28)
--- NOTE | 2024-11-25 09:27 | PC.SOCIAL ---
IMM Update pg 2 of IMM Updated and reviewed w/ patient. Copy provided and copy dated, initialed and placed in chart.
--- NOTE | 2024-11-25 09:34 | P.PN_ITS ---
Subjective 2 Subjective: Her hemoglobin improved to 11 today. No bleeding noted. No chest pain or shortness of breath. Vitals/I&O/Wt Last Vital Signs Temp 98.2 F 11/25/24 04:30 Pulse 98 11/25/24 08:30 Resp 19 H 11/25/24 08:30 BP 180/98 11/25/24 08:30 Pulse Ox 95 11/25/24 08:30 O2 Del Method Room Air 11/25/24 08:30 11/24/24 11/25/24 11/25/24 22:59 06:59 14:59 Intake Total 638.8 / 2690.75 1021.45 / 2690.75 52.333 / 52.333 Output Total 1675 / 1675 Balance 638.8 / 1015.75 -653.55 / 1015.75 52.333 / 52.333 Weight last 48 hrs Weight 153 lb 14.4 oz Weight 157 lb Physical Exam 2 Const: COMMON NORMALS: no acute distress and patient oriented x3 Chest: COMMONS NORMALS: normal inspection of the chest and normal palpation of entire chest wall CHEST: Yes Symmetrical chest wall rise Resp: COMMON NORMALS: normal respiratory effort, No retractions, No use of accessory muscles and clear to auscultation bilaterally EFFORT & INSPECTION: Yes symmetric chest movement AUSCULTATION: clear to auscultation bilaterally Cardio: COMMON NORMALS: S1 normal heart sound present, S2 normal heart sound present, No gallops present (Cardio), No clicks present (Cardio), No murmurs present (Cardio) and No rub (Cardio) RHYTHM: abnormal rhythm irregularly irregular HEART SOUNDS: S1 normal heart sound present and S2 normal heart sound present PERIPHERAL PULSES: radial pulses present, posterior tibial pulses present and dorsalis pedis present Neuro: COMMON NORMALS: patient oriented x3 and moves all extremities Psych: COMMON NORMALS: mental status grossly normal and cooperative Data 11/25/24 05:13 11/25/24 05:13 A&P Assessment and plan 1. ST elevation myocardial infarction (STEMI): 2. Afib: 3. Essential hypertension: 4. Upper GI bleed: Plan: She is doing much better. Will plan to discharge home today with Plavix for one month, continue Eliquis 5 mg BID. Holding additional antihypertensives for now, blood pressure has been normal after administration of metoprolol. Can reassess in the clinic. Follow up in cardiology clinic in 2 weeks. PDMP PDMP Reviewed: Not Reviewed Attestations 2 Medical Necessity Statement*: discharge today Coding Level of Care Code Acute Code for Chg Fwd Diagnoses ST elevation myocardial infarction (STEMI) I21.3 Afib I48.91 Essential hypertension I10 Upper GI bleed K92.2
--- NOTE | 2024-11-25 11:02 | PC.NURSE ---
Patient received all discharge information and all medication prescriptions were sent to their preferred pharmacy.Patient's IVs were taken out. Patient was stable during discharge.
== END 2024-11-25 10:53 | disposition home or self-care (01) | DRG 281 ==
LOC: ER 16:42 → CCL 17:06 → ICU 17:35 → CSU 17:38 → ICU 11-23 02:33
PROVIDERS: Internal Medicine Cardiovascular Disease; Student in an Organized Health Care Education/Training Program; Admitting Provider Student in an Organized Health Care Education/Training Program; Emergency Provider Emergency Medicine; PCP Internal Medicine; Visit Provider Student in an Organized Health Care Education/Training Program
PROC: 4A023N7 Measurement of Cardiac Sampling and Pressure, Left Heart, Percutaneous Approach (ICD-10-PCS; principal; 2024-11-21 17:00)
DX: I21.3 ST elevation (STEMI) myocardial infarction of unspecified site (principal); I50.32 Chronic diastolic (congestive) heart failure; R57.9 Shock, unspecified; I48.0 Paroxysmal atrial fibrillation; I11.0 Hypertensive heart disease with heart failure; E78.2 Mixed hyperlipidemia; F17.200 Nicotine dependence, unspecified, uncomplicated; D64.9 Anemia, unspecified; R10.30 Lower abdominal pain, unspecified; J44.9 Chronic obstructive pulmonary disease, unspecified; G30.9 Alzheimer's disease, unspecified; F02.80 Dementia in other diseases classified elsewhere, unspecified severity, without behavioral disturbance, psychotic disturbance, mood disturbance, and anxiety; E03.9 Hypothyroidism, unspecified; Z79.899 Other long term (current) drug therapy; Z79.890 Hormone replacement therapy; Z82.49 Family history of ischemic heart disease and other diseases of the circulatory system; Z79.01 Long term (current) use of anticoagulants; Z86.16 Personal history of COVID-19
CPT/HCPCS: 36415; 36430; 71045; 80053; 80061; 80162; 81001; 82274; 82607; 82746; 83036; 83540; 83550; 83605; 83690; 83735; 84100; 84145; 84443; 84484; 85014; 85018; 85025; 85347; 85730; 86850; 86900; 86920; 93005; 93306; 93458; 94664; 96374; 99152; 99153; 99285; C1769; C1887; C1894; J1644; J1938; J2250; J2270; J2470; J3010; J3490; J7030; J7040; J9999; P9016; P9045; Q9967

== ENCOUNTER → 2024-11-28 11:05 | Outpatient (BNVA) | payer MEDICARE, MEDICAID, SELFPAY | PROVIDERS: PCP Internal Medicine; Visit Provider Internal Medicine Cardiovascular Disease | DX: I11.0 Hypertensive heart disease with heart failure (principal); I50.32 Chronic diastolic (congestive) heart failure; I48.20 Chronic atrial fibrillation, unspecified; Z79.01 Long term (current) use of anticoagulants; I35.0 Nonrheumatic aortic (valve) stenosis; J44.1 Chronic obstructive pulmonary disease with (acute) exacerbation; Z87.891 Personal history of nicotine dependence; I25.2 Old myocardial infarction | CPT/HCPCS: 99214 ==

== ENCOUNTER 2024-12-01 08:52 | Observation (INO) | payer MEDICARE, MEDICAID, SELFPAY ==
--- OUTSIDE RECORDS SUMMARY | 2012-07-23 05:27 | XMS_ITS | Continuity of Care Document ---
Author Organization [facility] Address [address] [place] [address] Phone Care Team Providers Care Dietitian Teacher Name Role Phone Dario Hickman DO Unavailable Unavailable Advance Directives Directive Yes / No Effective Date File Name No Information Encounters Encounter Description Practice Location Reason(s) For Visit Diagnoses Date Provider Providers Copied on Encounter [facility], [address] [place], [id number], [place] tel:[phone] Dario Hickman DO No Information [address] [facility], [address] [facility] [address], [place], [id number], [place]. tel:[phone] Family History Family Member Type Diagnosis Age At Onset No Information Payers Payer name Insurance type Covered constitution party ID Authoriza tion(s) Medicare [id number] Social History Type Description Quantity Date Captured [...] due Goal FOBT. 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 Due on due Goal H&P. Due on due Goal Breast exam. Due on 011 due History Of Present Illness Encounter Date Complaint History Of Prese nt Illness No Information Functional Status Date Functional Assessmen t No Information Instructions Date Instruction Additional Infor mation No Information Assessments Type Assessment Date No Information Patient Care Teams Name Effective Dates (start - stop) Status Members No Information
[2024-12-01] VITALS (21 sets, daily range): BP systolic 126–180; BP diastolic 87–112; PULSE 70–116; RESP 14–28; TEMP 36.7–36.8; O2SAT 89–98; BMI 24.2
--- NOTE | 2024-12-01 09:04 | ECG_ITS ---
[employer] [facility] Test Date: 2024-12-01 Pat Name: Arielle Vences Department: Room: Gender: Female Punch Press Setter: : 1940 Requested By: Trell Keen Order Number: [id number] Reading MD: NANCY DAVIS Measurements Intervals Hume Rate: 106 P: 0 SC: 0 QRS: -58 QRSD: 78 T: -55 QT: 322 QTc: 429 Interpretive Statements ATRIAL FIBRILLATION WITH RAPID VENTRICULAR RESPONSE WITH ABERRANT CONDUCTION OR VENTRICULAR PREMATURE COMPLEXES INDETERMINATE AXIS ANTEROSEPTAL MYOCARDIAL INFARCTION , PROBABLY OLD [40+ ms Q WAVE IN V1-V4] Compared to ECG 11/21/2024 23:26:16 Ventricular premature complex(es) now present Aberrant conduction of supraventricular beat(s) now present Indeterminate axis now present Left anterior fascicular block no longer present Myocardial infarct finding still present Electronically Signed On 12-02-2024 20:14:22 CDT by NANCY DAVIS [email or web address]
--- OUTSIDE RECORDS SUMMARY | 2024-12-01 09:07 | XMS_ITS | Encounter Summary ---
Author Organization [facility] Address 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 Gender Identity Not on file Sexual Orientation Not on file documented as of this encounter Plan of Treatment Upcoming Encounters Date Type Department Care Team (Late st Contact Info) Description 12/06/2024 9:45 AM CDT Office Visit [facility] Primary [facility] [place] [address] [place] [address] [place] [phone] Alison Ramos MD [address] [facility] [place] [address] [place] [phone] 01/09/2025 9:30 AM CDT Office Visit [facility] Primary Care [place] [address] [address] [facility] [address] [place] [address] [place] [phone] Alison Ramos MD [address] [place] [address] [place] [phone] documented as of this encounter Procedures Procedure [...] F inal Result [facility] [id number] [address] [place] [address] * ROBERT SCREEN W/REFLEX (12/31/2023 12:00 AM CDT) ROBERT SCREEN NEGATIVE NEGATIVE 01/05/2024 2:47 PM CDT [facility] Comment: ROBERT IFA is a first line [...] AC-0: Negative International Consensus on ROBERT Patterns (https://doi.org/10.1515/errn-5307-1004) For additional information, please refer to http://education.[employer]/faq/OAO737 (This link is being provided for informational/ educational purposes only.) Blood Collection / Unknown 12/31/2023 12/31/2023 4:22 PM CDT Narrative [facility] 01/05/2024 2:47 PM CDT Performing Organization Information: Site ID: [place] Name: [employer] Address: [address] [place] [address] Director: Farrukh Montenegro MD us Alison Ramos MD CHEMISTRY ORDERABLES F inal Result [facility] [phone] documented in this encounter Visit Diagnoses Not on filedocumented in this encounter Additional Health Concerns Infection Onset Date Last Indicated Resolved Time R/O COVID-19 06/17/2024 06/17/2024 06/17/2024 9:17 AM CDT R/O COVID-19 08/26/2024 08/26/2024 08/26/2024 10:2 7 AM CDT documented as of this encounter Care Teams Fur Polisher Relationship Specialty Start Date End Date Alison Ramos MD [address] [place] [address] [address] [place] [phone] PCP - General Internal Medicine 07/21/24 documented as of this encounter
--- OUTSIDE RECORDS SUMMARY | 2024-12-01 09:07 | XMS_ITS | Encounter Summary ---
Author Organization [facility] Address [address] [place] [address] Care Team Providers Care Meeting Coordinator Name Role Phone Alison Ramos MD Primary Care Provider Encounter Details Date Type Department Care Team (Late st Contact Info) Description 11/24/2024 Abstract [facility] Primary Care [place] [address] [address] [place] [address] [place] [phone] Alison Ramos MD [address] 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 Gender Identity Not on file Sexual Orientation Not on file documented as of this encounter Plan of Treatment Upcoming Encounters Date Type Department Care Team (Late st Contact Info) Description 12/06/2024 9:45 AM CDT Office Visit [facility] Primary Care [place] [address] [place] [address] [place] [phone] Alison Ramos MD [address] [place] [address] 01/09/2025 9:30 AM CDT Office Visit [facility] Primary Care [place] [address] [place] [address] [place] [address] Alison Ramos MD [address] [place] [address] documented as of this encounter Visit Diagnoses Not on filedocumented in this encounter Care Teams Meeting Coordinator Relationship Specialty Start Date End Date Alison Ramos MD [address] [place] [phone] PCP - General Internal Medicine 07/21/24 documented as of this encounter
--- OUTSIDE RECORDS SUMMARY | 2024-12-01 09:07 | XMS_ITS | Encounter Summary ---
Author Organization [facility] Address 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 [address] [place] [phone] 01/09/2025 9:30 AM CDT Office Visit [facility] Primary Care [place] [address] [address] [facility] [address] [place] [address] [place] [phone] Alison Ramos MD [address] [facility] [address] [place] [phone] documented as of this encounter Procedures Procedure Name Priority Date/Time Associated Diagnosis Comments URINE CULTURE Routine 03/11/2024 3:00 PM CONTACT WORKER Urinary tract infection, site not specified documented in this encounter Results * URINE CULTURE (03/11/2024 3:00 PM CONTACT WORKER) CULTURE Polymicrobial growth consistent with normal urethral alda and/or colonizing bacteria 03/13/2024 7:27 AM CONTACT WORKER [facility] Urine Collection / Unknown 03/11/2024 3:00 PM CONTACT WORKER 03/11/2024 5:50 PM CONTACT WORKER us Alison Ramos MD MICROBIOLOGY - GENERAL ORDERABLES Final Result [facility] [id number] [address] [place], [place] [address], [place] [address] documented in this encounter Visit Diagnoses Diagnosis Urinary tract infection, site not specified documented in this encounter Additional Health Concerns Infection Onset Date Last Indicated Resolved Time R/O COVID-19 06/17/2024 06/17/2024 06/17/2024 9:17 AM CDT R/O COVID-19 08/26/2024 08/26/2024 08/26/2024 10:2 7 AM CDT documented as of this encounter Care Teams Energy Management Specialist Relationship Specialty Start Date End Date Alison Ramos MD [address] [place] [phone] PCP - General Internal Medicine 07/21/24 documented as of this encounter
--- OUTSIDE RECORDS SUMMARY | 2024-12-01 09:07 | XMS_ITS | Clinical Summary ---
Author Organization [facility] Address [address] [facility] [address] [place] [address] Phone Care Team Providers Care Hvac Service Tech Name Role Phone Alison Ramos MD Primary [...] 60 Tablet 5 02/01/20 24 10:34 AM CARPET CUTTER 024 Active diclofenac sodium (VOLTAREN) 1 % [...] 60 Gram 1 04/13/19 25 3:07 PM CARPET CUTTER 025 Active fluticasone propionate (FLONASE) 50 mcg/spray [place], Suspension nasal inhaler Administer 2 Sprays in [...] 473 mL Active naloxone (NARCAN) 4 mg/spray [place], Non-Aerosol EMERGENCY USE ONLY: Administer 1 spray [...] 90 Tablet 11/08/19 3:20 PM CDT Active calcium CARBONATE + vitamin D (CALTRATE+D) [...] Tablets 90 Tablet 03/11/20 24 12:06 PM CARPET CUTTER 024 2024 Discontinued HYDROcodone-acet aminophen (NORCO) 10-325 mg Tablet Take 1 Tablet by mouth every 8 hours. Max Daily Amount: 3 Tablets 90 Tablet 04/13/19 25 3:07 PM CARPET CUTTER 025 2024 Discontinued HYDROcodone-acet aminophen (NORCO) 10-325 [...] 12 hours for 10 days. 20 Tablet 025 2024 Active Problems Problem Noted [...] Encounters Date Type Department Care Team Description 11/24/2024 Abstract [facility] Primary Care [place] [address] [place] [address] [place] [address] Alison Ramos MD 11/22/2024 Telephone [facility] Laboratory Services [place] [address] [place] [address] [place] [phone] Alison Ramos MD reschedule appointment 11/21/2024 Abstract [facility] ABSTRACTION Provider, Abstract 11/14/2024 6:32 PM CDT - 11/14/2024 9:59 PM CDT Emergency [facility] Emergency Medicine [address] [place] [phone] Kvng Nolan MD Colitis (Primary Dx) Discharge Disposition: Home or Self Care 11/14/2024 Travel 11/07/2024 Refill [facility] Primary Care [place] [address] [address] [place] [address] [place] [phone] Alison Ramos MD Primary osteoarthritis involving multiple joints (Primary Dx) 11/07/[address] 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 Care [place] [facility] [address] [facility] [address] [place] [address] Alison Ramos MD Medication Refill (Hydrocodone refill) 10/18/2024 1:58 PM CDT - 10/18/2024 4:05 PM CDT Emergency [facility] Emergency Medicine [address] [place] [address] Colitis (Primary Dx); Anemia, chronic disease Discharge Disposition: Home or Self Care 10/18/2024 Travel 09/20/2024 External Device Data Initial Department [address] [place] [address] Dr SUÁREZ: [place] [address] [facility] 09/05/2024 External Device Data Initial Department [address] [place] [address] Dr SUÁREZ: [place] [address] [facility] from Last 3 Months Family History Medical [...] on file 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 Gender Identity Not on file Sexual Orientation [...] Description 12/06/2024 9:45 AM CDT Office Visit [facility] Primary Care [place] [address] [place] [address] [place] [address] Alison Ramos MD [address] [place] [address] 01/09/2025 9:30 AM CDT Office Visit [facility] Primary Care [place] [address] [place] [address] [place] [address] Alison Ramos MD [address] [place] [address] Health Maintenance Due Date Last Done Comments DIABETES ANNUAL FOOT EXAM 1960 DIABETES ANNUAL RETINAL EXAM 1960 DIABETES HBA1C Q 6 MONTHS 1960 DIABETES MICROALBUMIN ANNUAL SCREEN 1960 LDL CHOLESTEROL ANNUAL 1960 ZOSTER VACCINE (1 of 2) 1992 OSTEOPOROSIS SCREENING 12/25/2007 RSV VACCINE (60+ or ) (1 - 1-dose 75+ series) 2017 Medicare Advantage (CT) Prev entative Visit/Annual Wellness Visit 03/23/2024 INFLUENZA VACCINE (#1) 2024 COVID-19 Vaccine (3 - season) 11/21/202408/2020, 05/29/2020 DTAP/TDAP/TD VACCINES (2 - Td or Tdap) 05/11/2029 PNEUMOCOCCAL VACCINE 50+ YEARS Completed 03/03/2023 Medical Devices Implanted Type Area Systems Support Engineer Device Identifier Shelf Expiration Date Model / Serial / Lot Clip Endo Resolution 360 Ultra 2.8mm 235cm [id number] - [id number] Implanted:Qty: 1 on 07/18/2024 by Rodney Bright MD at [facility] Clip N/A: Stomach LookTracker GOMEZ [id number] 03/29/2027 [id number] / / [id number] Procedures Procedure Name Priority Date/Time Associated Diagnosis [...] WITH DIFFERENTIAL Stat 10/18/2024 2:20 PM CDT from Last 3 Months Results * [...] to Dark Yellow 11/14/2024 7:55 PM CDT [facility] CLARITY UA Clear Clear 11/14/2024 7:55 PM CDT [facility] SPECIFIC GRAVITY UA 1.010 1.003 - 1.035 11/14/2024 7:55 PM CDT [facility] PH UA 5.5 5.0 - 8.0 11/14/2024 7:55 PM CDT [facility] LEUKOCYTE ESTERASE UA Negative Negative 11/14/2024 7:55 PM CDT [facility] NITRITE UA Negative Negative 11/14/2024 7:55 PM CDT [facility] PROTEIN UA Negative Negative 11/14/2024 7:55 PM CDT [facility] GLUCOSE UA 3+(A) Negative 11/14/2024 7:55 PM CDT [facility] KETONES UA Negative Negative 11/14/2024 7:55 PM CDT [facility] UROBILINOGEN UA 0.2 <2.0 mg/dL 7:55 PM CDT [facility] BILIRUBIN UA Negative Negative 11/14/2024 7:55 PM CDT [facility] BLOOD UA Negative Negative 11/14/2024 7:55 PM CDT [facility] Urine URINE SPECIMEN OBTAINED BY CLEAN CATCH PROCEDURE / Unknown Collection / Unknown 11/14/2024 7:05 PM CDT 11/14/2024 7:52 PM CDT Kvng Nolan MD URINE ORDERABLES Final R esult [facility] # [id number] [address] [place] [address] * MANUAL DIFFERENTIAL (11/14/2024 6:42 PM CDT) PLATELET EST. Consistent w Count 11/14/2024 7:42 PM CDT [facility] ANISOCYTOSIS 1+ /hpf 11/14/2024 7:42 PM CDT [facility] MICROCYTES 1+ /hpf 11/14/2024 7:42 PM CDT [facility] HYPOCHROMIA 1+ /hpf 11/14/2024 7:42 PM CDT [facility] Blood Collection / Unknown 11/14/2024 6:42 PM CDT 11/14/2024 7:33 PM CDT Kvng Nolan MD HEMATOLOGY ORDERABLES CO M Final Result Performing Organization Address City/[facility]/ZIP Co de Phone Number [facility] CLIA # [id number] [address] [place] [address] * LACTIC ACID (11/14/2024 6:42 PM CDT) LACTIC ACID 1.4 <=2.0 mmol/L 11/14/2024 7:46 PM CDT [facility] Blood BLOOD SPECIMEN / Unknown Collection / Unknown 11/14/2024 6:42 PM CDT 11/14/2024 7:33 PM CDT Kvng Nolan MD CHEMISTRY ORDERABLES Fin al Result Performing Organization Address [facility] Co de Phone Number [facility] CLIA # [id number] [address] [place] [address] * (ABNORMAL) CBC WITH DIFFERENTIAL (11/14/2024 6:42 PM CDT) Only the most recent of2 resultswithin the time period is included. WBC 7.1 4.0 - 10.0 K/uL 11/14/2024 7:42 PM CDT [facility] RBC 4.15 3.93 - 5.22 M/uL 11/14/2024 7:42 PM CDT [facility] HEMOGLOBIN 8.9(L) 11.2 - 15.7 g/dL 11/14/2024 7:42 PM CDT [facility] HEMATOCRIT 29.9(L) 34.1 - 44.9 % 11/14/2024 7:42 PM [facility] MCV 72.0(L) 79.4 - 94.8 fL 11/14/2024 7:42 PM T [facility] MCH 21.4(L) 25.6 - 32.2 pg 11/14/2024 7:42 PM [facility] MCHC 29.8(L) 32.2 - 35.5 g/dL 11/14/2024 7:42 PM [facility] RDW 20.2(H) 11.0 - 14.5 % 11/14/2024 7:42 PM [facility] RDW-STDEV 52.0 36.9 - 56.9 fL 11/14/2024 7:42 PM [facility] PLATELETS 237 163 - 337 K/uL 11/14/2024 7:42 PM [facility] MPV 9.6(L) 10.0 - 14.8 fL 11/14/2024 7:42 PM [facility] NEUTROPHILS 67 34 - 71 % 11/14/2024 7:42 PM [facility] LYMPHOCYTES 14(L) 19 - 52 % 11/14/2024 7:42 PM [facility] MONOCYTES 11 5 - 13 % 11/14/2024 7:42 PM [facility] EOSINOPHILS 8(H) 1 - 6 % 11/14/2024 7:42 PM [facility] BASOPHILS 1 0 - 1 % 11/14/2024 7:42 PM [facility] IMMATURE GRANULOCYTES 0 % 11/14/2024 7:42 PM [facility] NEUTROPHIL ABSOLUTE 4.71 1.56 - 6.13 K/uL 11/14/2024 7:42 PM [facility] LYMPHOCYTE ABSOLUTE 0.97(L) 1.20 - 3.40 K/uL 11/14/2024 7:42 PM [facility] MONOCYTE ABSOLUTE 0.77(H) 0.24 - 0.36 K/uL 11/14/2024 7:42 PM [facility] EOSINOPHIL ABSOLUTE 0.53(H) 0.04 - 0.36 K/uL 11/14/2024 7:42 PM [facility] BASOPHILS ABSOLUTE 0.06 0.01 - 0.08 K/uL 11/14/2024 7:42 PM [facility] IMMATURE GRANULOCYTES ABSOLUTE 0.02 K/uL 11/14/2024 7:42 PM CDT [facility] Blood Collection / Unknown 11/14/2024 6:42 PM CDT 11/14/2024 7:33 PM CDT Kvng Nolan MD HEMATOLOGY ORDERABLES Fi nal Result Performing Organization Address City/[facility]/ZIP Co de Phone Number [facility] CLIA # [id number] [address] [place] [phone] * LIPASE (11/14/2024 6:42 PM CDT) LIPASE 51 13 - 60 U/L 11/14/2024 7:50 PM CDT [facility] Blood Collection / Unknown 11/14/2024 6:42 PM CDT 11/14/2024 7:33 PM CDT Kvng Nolan MD CHEMISTRY ORDERABLES Fin al Result Performing Organization Address [facility] Co de Phone Number [facility] CLIA # [id number] [address] [place] [address] * (ABNORMAL) COMPREHENSIVE METABOLIC PANEL (11/14/2024 6:42 PM CDT) Only the most recent of2 resultswithin the time period is included. SODIUM 135(L) 136 - 145 mmol/L 11/14/2024 7:50 PM CDT [facility] POTASSIUM 4.0 3.5 - 5.1 mmol/L 11/14/2024 7:50 PM T [facility] CHLORIDE 99 98 - 107 mmol/L 11/14/2024 7:50 PM CDT [facility] CO2 26 22 - 29 mmol/L 11/14/2024 7:50 PM CDT [facility] CALCIUM 10.2 8.8 - 10.2 mg/dL 11/14/2024 7:50 PM T [facility] BUN 12 8 - 23 mg/dL 11/14/2024 7:50 PM [facility] CREATININE 1.08(H) 0.51 - 0.95 mg/dL 11/14/2024 7:50 PM [facility] Comment:The GFR result is no t clinically significant on patients <18 or >70 years of age. GLUCOSE 80 74 - 99 mg/dL 11/14/2024 7:50 PM [facility] TOTAL PROTEIN 7.2 6.6 - 8.7 g/dL 11/14/2024 7:50 PM [facility] ALBUMIN 4.3 3.5 - 5.2 g/dL 11/14/2024 7:50 PM [facility] BILIRUBIN TOTAL 0.4 0.0 - 1.2 mg/dL 11/14/2024 7:50 PM [facility] ALKALINE PHOSPHATASE 79 35 - 104 U/L 11/14/2024 7:50 PM [facility] AST 25 0 - 35 U/L 11/14/2024 7:50 PM [facility] ALT 9 0 - 35 U/L 11/14/2024 7:50 PM [facility] GFR 52 mL/min/1.7 3 sq meter 11/14/2024 7:50 PM [facility] Comment:eGFR calculated with 2020 CKD-EPI equation. Vegetarian diet, extremely high or low muscle mass, and may affect results. Cystatin C with Glomerular Filtration Rate is a suitable alternative for these patients. ANION GAP 10 5 - 20 mmol/L 11/14/2024 7:50 PM [facility] Blood Collection / Unknown 11/14/2024 6:42 PM CDT 11/14/2024 7:33 PM CDT us Kvng Nolan MD CHEMISTRY ORDERABLES Fin al Result [facility] CLIA # [id number] [address] [place] [phone] * OCCULT BLOOD GUAIAC DIAGNOSTIC (10/18/2024 2:36 PM CDT) OCCULT BLOOD, STOOL Negative Negative 10/18/2024 2:59 PM CDT [facility] Stool STOOL SPECIMEN / Unknown Collection / Unknown 10/18/2024 2:36 PM CDT 10/18/2024 2:58 PM CDT Penny Brambila WIRELESS NETWORK ENGINEER BODY FLUIDS AND STOOLS Neda l Result Performing Organization Address City/[facility]/ZIP Co de Phone Number [facility] CLIA # [id number] [address] [place] [address] * PTT (10/18/2024 2:20 PM CDT) PTT 30.9 25.1 - 35.4 seconds 10/18/2024 2:43 PM CDT [facility] Blood BLOOD SPECIMEN / Unknown Collection / Unknown 10/18/2024 2:20 PM CDT 10/18/2024 2:28 PM CDT Penny Brambila WIRELESS NETWORK ENGINEER HEMATOLOGY ORDERABLES Final Result Performing Organization Address [facility] Co de Phone Number [facility] CLIA # [id number] [address] [place] [phone] * (ABNORMAL) PROTIME-INR (10/18/2024 2:20 PM CDT) PROTIME 14.4(H) 12.1 - 14.3 Seconds 10/18/2024 2:43 PM CDT [facility] INR 1.1 0.9 - 1.1 10/18/2024 2:43 PM CDT [facility] Blood BLOOD SPECIMEN / Unknown Collection / Unknown 10/18/2024 2:20 PM CDT 10/18/2024 2:28 PM CDT Penny Brambila WIRELESS NETWORK ENGINEER HEMATOLOGY ORDERABLES Final Result Performing Organization Address City/[facility]/ZIP Co de Phone Number [facility] CLIA # [id number] [address] [place] [phone] * TYPE AND SCREEN (10/18/2024 2:20 PM CDT) ABO/RH TYPE O NEG 10/18/2024 2:59 PM CDT [facility] ANTIBODY SCREEN Negative 10/18/2024 2:59 PM CDT [facility] Blood BLOOD SPECIMEN / Unknown Collection / Unknown 10/18/2024 2:20 PM CDT 10/18/2024 2:52 PM CDT Penny Brambila [facility] BLOOD BANK ORDERABLES Final Result Performing Organization Address [facility] Co de Phone Number [facility] CLIA # [id number] [address] [place] [phone] from Last 3 Months Insurance [place]ID [place] [facility] [employer] (INTERNAL) [facility] RX INFOCROSSING Medicaid RX [employer] Medicare Part D Advance Directives For more information, please contact: [phone] * Default Full Code - Needs Discussion (Latest Code Status on File) Date Activated Date Inactivated Comments 07/18/2024 4:04 AM 07/20/2024 4:18 PM Care Teams Hvac Service Tech Relationship Specialty Start Date End Date Alison Ramos MD [address] [facility] [address] [place] [address] PCP - General Internal Medicine 07/21/24
--- OUTSIDE RECORDS SUMMARY | 2024-12-01 09:07 | XMS_ITS | Encounter Summary ---
Author Organization [employer] Address [address] [place] [address] Care Team Providers Care Wing Mailer Machine Operator Name Role Phone Alison Ramos MD Primary Care Provider Reason for Visit * Reason Onset Date Comments reschedule appointment 11/22/2024 Encounter Details Date Type Department Care Team (Late st Contact Info) Description 11/22/2024 Telephone [facility] [place] [address] [place] [address] [facility] [place] [phone] Alison Ramos MD [address] [place] [phone] reschedule appointment Social History Tobacco Use Types Packs/Day Years [...] on file 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 Ramos will be gone. Message stated number is not reachable . [phone] documented in this encounter Plan of Treatment Upcoming Encounters Date Type Department Care Team (Late st Contact Info) Description 12/06/2024 9:45 AM CDT Office Visit [facility] [place] [address] [place] [address] [place] [address] Alison Ramos MD [address] [place] [address] 01/09/2025 9:30 AM CDT Office Visit [facility] [place] [address] [address] [place] [address] Alison Ramos MD [address] [place] [address] documented as of this encounter Visit Diagnoses Not on filedocumented in this encounter Care Teams Wing Mailer Machine Operator Relationship Specialty Start Date End Date Alison Ramos MD [address] [place] [address] PCP - General Internal Medicine 07/21/24 documented as of this encounter
--- NOTE | 2024-12-01 09:19 | XRR_ITS ---
PROCEDURE INFORMATION: Exam: XR Chest Exam date and time: 12/01/2024 9:30 AM Age: 83 years old Clinical indication: Dyspnea; Additional info: Dyspnea/cough TECHNIQUE: Imaging protocol: Radiologic exam of the chest. Views: 1 view. COMPARISON: CR (CHEST, ) 11/21/2024 4:27 PM FINDINGS: Lungs: Slight interstitial prominence. Pleural spaces: Unremarkable. No pleural effusion. No pneumothorax. Heart/Mediastinum: See Vasculature finding. Vasculature: Mild cardiomegaly and uncoiling of the thoracic aorta. This is accentuated by the AP positioning. Bones/joints: Unremarkable. XR/XR chest 1V portable [id number] IMPRESSION: No acute findings.
[2024-12-01 09:21] LABS: Hematocrit 38.1 % (36-47); Hemoglobin 11.40 g/dL (11.27-16.99); Mean Corpuscular HGB Conc 29.9 g/dL (30-55); Mean Corpuscular Hemoglobin 23.8 pg (27-33); Mean Corpuscular Volume 79.7 fl (85-98); Nucleated Red Blood Cells % 0 %; Platelet Count 320 10^3/cmm (157-399); Red Blood Count 4.78 10^6/uL (3.85-5.65); White Blood Count 8.42 10^3/uL (3.29-11.43)
[2024-12-01 09:30] LABS: Alanine Aminotransferase 7 U/L (0-33); Albumin Level 4.2 g/dL (3.5-5.2); Alkaline Phosphatase 96 U/L (35-105); Anion Gap 17.1 (5-19); Aspartate Amino Transferase 16 U/L (0-32); Blood Urea Nitrogen 6 mg/dL (8-23); Calcium 10.2 mg/dL (8.5-10.5); Carbon Dioxide 26 mmol/L (22-29); Chloride 102 mmol/L (98-107); Creatinine Clr Calc Pharmacy 43.7389; Globulin 3.6 g/dL (1.3-4.6); Glucose 124 mg/dL (65-115); Osmolality Calculated 291 mOsm/kg (285-295); Potassium 4.1 mmol/L (3.5-5.1); Sodium 141 mmol/L (136-145); Total Protein 7.8 g/dL (6.6-8.7)
--- NOTE | 2024-12-01 09:34 | PC.NURSE ---
Placed pt on 2 liters of oxygen due to pt's oxygen sats on room air were 88-89%.
--- NOTE | 2024-12-01 09:43 | W.ED.SOB ---
HPI - SOB/Dyspnea General: Chief Complaint: Shortness of Breath/Dyspnea Stated Complaint: Hard to Breath Time Seen by Provider: 12/01/24 08:58 History of Present Illness: HPI Narrative: 83-year-old female presents emergency room complaining of increasing shortness of breath. She normally does not wear oxygen and is now requiring 2 L. She denies any chest pain she has had a bit of a nonproductive cough. No slight increase swelling in her lower extremities. Known history of atrial fibrillation and congestive heart failure. She is on digoxin Eliquis Lasix which she only takes as needed. She is also on metoprolol. Associated symptoms: Deny abdominal pain, chest pain or fever(s) Related Data Home Medications ?Medication ?Instructions ?Recorded ?Confirmed gabapentin 600 mg tablet 600 mg PO TID 04/06/19 12/01/24 levothyroxine 88 mcg tablet 88 mcg PO QAM 04/06/19 12/01/24 loratadine 10 mg tablet 10 mg PO DAILY Allergy Symptoms 04/06/19 12/01/24 mirabegron 50 mg tablet,extended 50 mg PO QAM 04/06/19 12/01/24 release 24 hr (Myrbetriq) cholecalciferol (vitamin D3) 1,250 50,000 unit PO Q7D 05/11/19 12/01/24 mcg (50,000 unit) capsule trazodone 50 mg tablet 25 - 50 mg PO BEDTIME PRN Sleep 05/11/19 12/01/24 montelukast 10 mg tablet 10 mg PO QAM 01/14/22 12/01/24 donepezil 10 mg tablet 10 mg PO QAM 11/08/22 12/01/24 amlodipine 10 mg tablet 10 mg PO DAILY 07/08/23 12/01/24 digoxin 125 mcg (0.125 mg) tablet 125 mcg PO QAM 07/08/23 12/01/24 empagliflozin 10 mg tablet 10 mg PO QAM 07/08/23 12/01/24 (Jardiance) potassium chloride 20 mEq 20 meq PO DAILY 07/08/23 12/01/24 tablet,extended release pravastatin 40 mg tablet 40 mg PO DAILY 07/08/23 12/01/24 tizanidine 2 mg tablet 2 mg PO BID 07/08/23 12/01/24 duloxetine 60 mg capsule,delayed 60 mg PO QAM 11/21/24 12/01/24 release nystatin 100,000 unit/gram topical 1 applic topical TID 11/21/24 12/01/24 cream pantoprazole 40 mg tablet,delayed 40 mg PO Q12H 11/21/24 12/01/24 release hydrocodone 10 mg-acetaminophen 1 tab PO TID PRN Pain 12/01/24 12/01/24 325 mg tablet lisinopril 10 mg tablet 10 mg PO BID 12/01/24 12/01/24 Previous Rx's ?Medication ?Instructions ?Recorded nitroglycerin 0.4 mg sublingual 0.4 mg sublingual Q5M PRN chest 09/09/19 tablet pain #30 tabs apixaban 5 mg tablet (Eliquis) 5 mg PO BID #60 tabs 11/25/24 atorvastatin 40 mg tablet 20 mg (1/2 x 40 mg) PO BEDTIME #30 11/25/24 tabs clopidogrel 75 mg tablet (Plavix) 75 mg PO DAILY #30 tabs 11/25/24 furosemide 20 mg tablet 20 mg PO QAM PRN weight gain of 5 11/25/24 lbs #10 tabs metoprolol tartrate 25 mg tablet 25 mg PO BID@0900,2100 #60 tabs 11/25/24 sucralfate 100 mg/mL oral 1 g (10 mL) PO AC&BEDTIME 4 weeks 11/25/24 suspension #1,000 mL Allergies Allergy/AdvReac Type Severity Reaction Status Date / Time No Known Allergies Allergy Verified 11/28/24 11:21 Review of Systems Const: Denies: fever(s) or chills Card: Denies: chest pain Resp: Denies: dyspnea GI: Denies: abdominal pain : Denies: dysuria, urinary frequency or urinary urgency Musc: Denies: neck pain or back pain Skin/Breast: Denies: rash PFSH ED PFSH: Medical History Anxiety and depression Upper GI bleed Dyspnea on exertion Peripheral edema Lymphedema Venous stasis dermatitis Hx of fracture of ankle Arthritis DJD (degenerative joint disease) Abdominal hernia Sliding hiatal hernia Hypothyroidism Insomnia Gastroenteritis DDD (degenerative disc disease) Restless legs Pulmonary nodule Diverticulitis Hx of fracture of tibia Dementia Age related osteoporosis Mixed incontinence History of colon polyps COVID Atrial fibrillation with RVR COPD (chronic obstructive pulmonary disease) Anal fissure Chronic back pain Lymphedema of both lower extremities Mixed hyperlipidemia Chronic systolic (congestive) heart failure Essential hypertension Surgical History History of amputation of toe Hx of blepharoplasty History of bladder surgery History of colonoscopy years ago History of hysterectomy Family History Sister Stroke CAD (coronary artery disease) [place] @ 75 Hypertension Brother Cancer Father Cancer Social History Smoking and tobacco/nicotine status: former use of tobacco/nicotine Second hand smoke exposure: No Alcohol intake: never Substance/Drug Use: never Adopted: No Caregiver/support person: No Lives independently: Yes Household members: spouse Housing: House Marital status: service: No Current occupational status: retired Do you think of yourself as: Straight/Heterosexual Current gender identity: Female Physical Exam Const: GENERAL APPEARANCE: cooperative ORIENTATION/CONSCIOUSNESS: Yes awake HENMT: COMMON NORMALS: normocephalic, atraumatic and hearing grossly normal bilaterally HEAD & SCALP: normocephalic and atraumatic Resp: EFFORT & INSPECTION: Yes tachypneic AUSCULTATION: crackles Cardio: COMMON NORMALS: regular rate, regular rhythm and No murmurs present (Cardio) RATE: regular rate RHYTHM: regular rhythm GI: COMMON NORMALS: Soft to palpation and No hepatosplenomegaly present AUSCULTATION: Yes normoactive bowel sounds PALPATION: Yes Soft to palpation, No Tenderness to palpation present (GI), No Guarding due to palpation present (GI) and Yes No hepatosplenomegaly present Extremity: COMMON NORMALS: normal to inspection, capillary refill normal, no clubbing, cyanosis or edema, no calf tenderness and no pedal edema Skin: COMMON NORMALS: no rashes or lesions noted GENERAL SKIN EXAM: no rashes or lesions noted Course Vital Signs: Vital signs: Vital Signs Temperature 98.1 F 12/01/24 09:03 Pulse Rate 84 12/01/24 11:30 Respiratory Rate 15 12/01/24 11:30 Blood Pressure 180/111 12/01/24 10:00 Pulse Oximetry 96 12/01/24 11:30 Oxygen Delivery Me thod Nasal Cannula 12/01/24 11:30 Oxygen Flow Rate 2 12/01/24 11:30 MDM - SOB/Dyspnea Medical Decision Making Will admit for decompensated congestive heart failure. She is now requiring 2 L of oxygen. Will need further diuresis discussed with hospitalist orders written. Medical Records CONCLUSIONS Normal left ventricular size, systolic function and wall thickness, with no regional wall motion abnormalities. Left ventricular ejection fraction is estimated at 60 %. In the presence of atrial fibrillation diastolic function cannot be assessed accurately. Normal right ventricular size. Normal right ventricular systolic function. Moderate pulmonary hypertension. Moderate pulmonary hypertension, RVSP 41 mmHg. Moderately increased left atrial size. Mildly thickened mitral valve. No mitral valve stenosis. Severe mitral valve regurgitation. Moderate aortic valve calcification.aortic valve sclerosis without stenosis. [id number] aortic valve regurgitation. Severe tricuspid valve regurgitation. Right atrial pressure is around 10 mm of mercury. Zohra Russell MD (Electronically Signed) Final Date: 21 November 2024 Lab Data 12/01/24 09:08 12/01/24 09:08 Labs/Radiology: Radiology Impressions Chest X-Ray 12/01/24 09:19 IMPRESSION: No acute findings. Laboratory Results WBC 8.42 10^3/uL (3.29-11.43) 12/01/24 09:08 RBC 4.78 10^6/uL (3.85-5.65) 12/01/24 09:08 Hgb 11.40 g/dL (11.27-16.99) 12/01/24 09:08 Hct 38.1 % (36-47) 12/01/24 09:08 MCV 79.7 fl (85-98) L 12/01/24 09:08 MCH 23.8 pg (27-33) L 12/01/24 09:08 MCHC 29.9 g/dL (30-55) L 12/01/24 09:08 RDW 23.5 % (12.1-15.1) H 12/01/24 09:08 Plt Count 320 10^3/cmm (157-399) 12/01/24 09:08 MPV 9.8 fL (7.4-10.4) 12/01/24 09:08 Neut % (Auto) 78.9 % 12/01/24 09:08 Lymph % (Auto) 6.9 % 12/01/24 09:08 [place] % (Auto) 10.9 % 12/01/24 09:08 Eos % (Auto) 2.5 % 12/01/24 09:08 Baso % (Auto) 0.6 % 12/01/24 09:08 Neut # (Auto) 6.64 10^3/uL (1.8-7.7) 12/01/24 09:08 Lymph # (Auto) 0.6 10^3/uL (0.8-4.8) L 12/01/24 09:08 [place] # (Auto) 0.9 10^3/uL (0.2-0.9) 12/01/24 09:08 Eos # (Auto) 0.2 10^3/uL (0.0-0.8) 12/01/24 09:08 Baso # (Auto) 0.1 10^3/uL (0.0-0.1) 12/01/24 09:08 Nucleated RBC % (auto) 0 % 12/01/24 09:08 Nucleated RBCs # 0.0 /100WBC 12/01/24 09:08 Sodium 141 mmol/L (136-145) 12/01/24 09:08 Potassium 4.1 mmol/L (3.5-5.1) 12/01/24 09:08 Chloride 102 mmol/L (98-107) 12/01/24 09:08 Carbon Dioxide 26 mmol/L (22-29) 12/01/24 09:08 Anion Gap 17.1 (5-19) 12/01/24 09:08 BUN 6 mg/dL (8-23) L 12/01/24 09:08 Creatinine 1.0 mg/dL (0.5-0.9) H 12/01/24 09:08 GFR Calculation Not Reportable 12/01/24 09:08 Glucose 124 mg/dL (65-115) H 12/01/24 09:08 Calculated Osmolality 291 mOsm/kg (285-295) 12/01/24 09:08 Calcium 10.2 mg/dL (8.5-10.5) 12/01/24 09:08 Total Bilirubin 1.0 mg/dL (0.15-1.2) 12/01/24 09:08 AST 16 U/L (0-32) 12/01/24 09:08 ALT 7 U/L (0-33) 12/01/24 09:08 Alkaline Phosphatase 96 U/L (35-105) 12/01/24 09:08 C-Reactive Protein 17.5 mg/L (0.0-4.9) H 12/01/24 09:08 NT-Pro-B Natriuret Pep 6344 pg/mL (0-450) H 12/01/24 09:08 Total Protein 7.8 g/dL (6.6-8.7) 12/01/24 09:08 Albumin 4.2 g/dL (3.5-5.2) 12/01/24 09:08 Globulin 3.6 g/dL (1.3-4.6) 12/01/24 09:08 Urine Color Dark yellow (Yellow) A 12/01/24 10:56 Urine Appearance Clear (CLEAR) 12/01/24 10:56 Urine pH 5.5 (5-7) 12/01/24 10:56 Ur Specific [place] 1.015 (1.005-1.030) 12/01/24 10:56 Urine Protein Trace (Negative) A 12/01/24 10:56 Urine Glucose (UA) Negative (Normal) 12/01/24 10:56 Urine Ketones Trace (Negative) 12/01/24 10:56 Urine Blood Negative (Negative) 12/01/24 10:56 Urine Nitrate Negative (Negative) 12/01/24 10:56 Urine Bilirubin Negative (Negative) 12/01/24 10:56 Urine Urobilinogen 1.0 mg/dL (Negative) 12/01/24 10:56 Ur Leukocyte Esterase 2+ (Negative) A 12/01/24 10:56 Urine RBC 0-2 /hpf (0-2) 12/01/24 10:56 Urine WBC 21-50 /hpf (0-5) H 12/01/24 10:56 Ur Squamous Epith Cells 6-10 /hpf (0-5) 12/01/24 10:56 Amorphous Sediment Not Reportable 12/01/24 10:56 Urine Bacteria None seen /hpf (NONE) 12/01/24 10:56 Hyaline Casts 0.81 /lpf 12/01/24 10:56 Digoxin 0.6 ng/mL (0.6-1.2) 12/01/24 09:08 All radiology interpretation(s) finalized by discharge EKG Data EKG 1: Interpretation: EKG 12/01/2024 9:04 AM atrial fibrillation rate of 106 QTc 429. PVCs noted. Q waves in V1 through [address] change noted. Compared to EKG 11/21/2024 rate has increased. Discharge Plan Discharge Patient Disposition: Placed in Observation Clinical Impression: Decompensated heart failure, Atrial fibrillation Coding Level of Care Code ED Donor Support Technician for Juan F Mckinney
[2024-12-01] MEDS: ondansetron 2 mg/ML SDV 2 mL 4 MG IVP (10:10)
[2024-12-01 10:33] LABS: NT Pro B Type Natriuretic Pept 6344 pg/mL (0-450)
[2024-12-01] MEDS: FUROsemide 10 mg/mL SDV 10mL 60 MG IVP (10:51)
[2024-12-01 11:06] LABS: Glucose Urine UA Negative (Normal); Nitrate Urine Negative (Negative); Specific Gravity, Urine 1.015 (1.005-1.030)
[2024-12-01 11:10] LABS: Digoxin 0.6 ng/mL (0.6-1.2)
[2024-12-01 11:12] LABS: Add Urine Microscopic? YES
--- NOTE | 2024-12-01 11:24 | PC.PHAR ---
Pt has 18 medications that were filled on the . They are ready but have not been picked up yet.
--- NOTE | 2024-12-01 16:00 | PM.HP ---
Providers/Chief Complaint Admitting Physician: Rinku Jj Primary Care Provider: Alison Ramos MD Chief Complaint: Hard to Breath History of Present Illness Arielle Vences is a 83 year old woman with a history of chronic silicosis, hypertension, hyperlipidemia, atrial fibrillation with rapid ventricular response, hypothyroidism, anxiety and depression, chronic obstructive pulmonary disease (COPD), and chronic back pain presents to the emergency department for difficulty breathing and shortness of breath. Not normally on supplemental oxygen but currently requiring 2 L/min via nasal cannula. Reports mild, non-productive cough for a couple of days. Denies chest pain at present; there was an episode of chest discomfort about an hour prior while downstairs that has since resolved. Reports feeling cold in the feet and requested blankets. Endorses leg swelling, which had not occurred for almost two years prior to this episode. No fever, chills, myalgias, headache, sore throat, or sneezing. Had nausea earlier without emesis. She typically takes furosemide (Lasix) as needed. Medication adherence has been inconsistent; blood thinners were missed yesterday, with the last dose taken two days ago. Former smoker. Does not limit fluid intake. In the emergency department: initial blood pressure on presentation 180/111 mmHg; subsequent blood pressure 163/91 mmHg; respiratory rate 17; temperature 98.1?F; oxygen saturation 93% on 2 L/min nasal cannula. Laboratory results: white blood cell count normal; hemoglobin normal; platelets 320; sodium/potassium/chloride within normal limits; bicarbonate 26; anion gap 17; blood urea nitrogen 16; creatinine 1.0; glucose 124; liver enzymes within normal limits; C-reactive protein (CRP) 17.5; N-terminal pro?B-type natriuretic peptide (NT-proBNP) 6344; urinalysis with 21?50 white blood cells (WBCs), 0?2 red blood cells (RBCs); digoxin level 0.6; chest X-ray without acute findings; electrocardiogram (EKG) shows atrial fibrillation (known). Prior transthoracic echocardiogram on November 21, 2024 (during recent hospitalization) showed normal ejection fraction, no regional wall motion abnormalities, severe mitral valve regurgitation (MVR), [id number] aortic valve regurgitation (AVR), and severe tricuspid valve regurgitation (TVR). Recent hospitalization: discharged November 25, evaluated for chest pain with initial concern for ST-elevation myocardial infarction (STEMI); anticoagulated for distal circumflex (ACX) thrombus. Hospitalization complicated by shock and acute anemia requiring blood transfusion and transient vasopressors. Two months ago had a bleeding gastric ulcer treated with endoscopic clip placement; instructed to monitor for melena. Follow-up: saw behavioral modification assistant (Dr. Christopher) a couple of days ago with a follow-up scheduled in one month. The leaky mitral valve was discussed as a possible contributor to symptoms, with potential referral for repair to be determined by cardiology. Code status discussed; patient would want cardiopulmonary resuscitation (CPR). Review of Systems Const: Denies: fever(s), chills, body aches or malaise ENMT: Denies: throat pain Card: Reports: edema and dyspnea on exertion; Denies: chest pain or pre-syncope Resp: Reports: dyspnea and non-productive cough; Denies: productive cough, change in phlegm color or hemoptysis GI: Denies: abdominal pain, nausea, vomiting, diarrhea, constipation, hematochezia or melena : Denies: flank pain, urinary frequency or hematuria Musc: Denies: back pain, joint swelling or joint redness Skin/Breast: Denies: rash or new lesions Neuro: Denies: headache(s) or confusion Medications/Allergies Home Medications ?Medication ?Instructions ?Recorded ?Confirmed ?Last Taken ?Type gabapentin 600 mg tablet 600 mg PO TID 04/06/19 12/01/24 11/29/24 History levothyroxine 88 mcg tablet 88 mcg PO QAM 04/06/19 12/01/24 11/29/24 History loratadine 10 mg tablet 10 mg PO DAILY Allergy Symptoms 04/06/19 12/01/24 11/29/24 History mirabegron 50 mg tablet,extended 50 mg PO QAM 04/06/19 12/01/24 11/29/24 History release 24 hr (Myrbetriq) cholecalciferol (vitamin D3) 1,250 50,000 unit PO Q7D 05/11/19 12/01/24 07/05/23 History mcg (50,000 unit) capsule trazodone 50 mg tablet 25 - 50 mg PO BEDTIME PRN Sleep 05/11/19 12/01/24 02/15/21 History nitroglycerin 0.4 mg sublingual 0.4 mg sublingual Q5M PRN chest 09/09/19 12/01/24 12/04/20 Rx tablet pain #30 tabs montelukast 10 mg tablet 10 mg PO QAM 01/14/22 12/01/24 11/29/24 History donepezil 10 mg tablet 10 mg PO QAM 11/08/22 12/01/24 11/29/24 History amlodipine 10 mg tablet 10 mg PO DAILY 07/08/23 12/01/24 11/29/24 History digoxin 125 mcg (0.125 mg) tablet 125 mcg PO QAM 07/08/23 12/01/24 11/29/24 History empagliflozin 10 mg tablet 10 mg PO QAM 07/08/23 12/01/24 11/29/24 History (Jardiance) potassium chloride 20 mEq 20 meq PO DAILY 07/08/23 12/01/24 11/29/24 History tablet,extended release pravastatin 40 mg tablet 40 mg PO DAILY 07/08/23 12/01/24 11/29/24 History tizanidine 2 mg tablet 2 mg PO BID 07/08/23 12/01/24 11/29/24 History duloxetine 60 mg capsule,delayed 60 mg PO QAM 11/21/24 12/01/24 11/29/24 History release nystatin 100,000 unit/gram topical 1 applic topical TID 11/21/24 12/01/24 11/29/24 History cream pantoprazole 40 mg tablet,delayed 40 mg PO Q12H 11/21/24 12/01/24 11/29/24 History release apixaban 5 mg tablet (Eliquis) 5 mg PO BID #60 tabs 11/25/24 12/01/24 Unknown Rx atorvastatin 40 mg tablet 20 mg (1/2 x 40 mg) PO BEDTIME #30 11/25/24 12/01/24 11/29/24 Rx tabs clopidogrel 75 mg tablet (Plavix) 75 mg PO DAILY #30 tabs 11/25/24 12/01/24 Unknown Rx furosemide 20 mg tablet 20 mg PO QAM PRN weight gain of 5 11/25/24 12/01/24 11/29/24 Rx lbs #10 tabs metoprolol tartrate 25 mg tablet 25 mg PO BID@0900,2100 #60 tabs 11/25/24 12/01/24 11/29/24 Rx sucralfate 100 mg/mL oral 1 g (10 mL) PO AC&BEDTIME 4 weeks 11/25/24 12/01/24 Unknown Rx suspension #1,000 mL hydrocodone 10 mg-acetaminophen 1 tab PO TID PRN Pain 12/01/24 12/01/24 Unknown History 325 mg tablet lisinopril 10 mg tablet 10 mg PO BID 12/01/24 12/01/24 11/29/24 History Allergies Allergy/AdvReac Type Severity Reaction Status Date / Time No Known Allergies Allergy Verified 11/28/24 11:21 PFSH Acute PFSH: Medical History Anxiety and depression Upper GI bleed Dyspnea on exertion Peripheral edema Lymphedema Venous stasis dermatitis Hx of fracture of ankle Arthritis DJD (degenerative joint disease) Abdominal hernia Sliding hiatal hernia Hypothyroidism Insomnia Gastroenteritis DDD (degenerative disc disease) Restless legs Pulmonary nodule Diverticulitis Hx of fracture of tibia Dementia Age related osteoporosis Mixed incontinence History of colon polyps COVID Atrial fibrillation with RVR COPD (chronic obstructive pulmonary disease) Anal fissure Chronic back pain Lymphedema of both lower extremities Mixed hyperlipidemia Chronic systolic (congestive) heart failure Essential hypertension Surgical History History of amputation of toe Hx of blepharoplasty History of bladder surgery History of colonoscopy years ago History of hysterectomy Family History Sister Stroke CAD (coronary artery disease) [place] @ 75 Hypertension Brother Cancer Father Cancer Social History Smoking and tobacco/nicotine status: former use of tobacco/nicotine Second hand smoke exposure: No Alcohol intake: never Substance/Drug Use: never Adopted: No Caregiver/support person: No Lives independently: Yes Household members: spouse Housing: House Marital status: service: No Current occupational status: retired Do you think of yourself as: Straight/Heterosexual Current gender identity: Female Vitals/I&O/Wt Last Vital Signs Temp 98.1 F 12/01/24 09:03 Pulse 116 H 12/01/24 15:00 Resp 17 12/01/24 15:00 BP 163/91 12/01/24 15:00 Pulse Ox 93 12/01/24 15:00 O2 Del Method Nasal Cannula 12/01/24 14:30 O2 Flow Rate 2 12/01/24 14:30 Weight last 48 hrs Weight 68.039 kg Physical Exam Narrative: at bedside Const: COMMON NORMALS: patient oriented x3 and alert GENERAL APPEARANCE: cooperative ORIENTATION/CONSCIOUSNESS: Yes awake HENMT: COMMON NORMALS: oropharynx normal Resp: COMMON NORMALS: normal respiratory effort AUSCULTATION: diminished lung sounds Cardio: COMMON NORMALS: regular rhythm, S1 normal heart sound present and S2 normal heart sound present RHYTHM: regular rhythm HEART SOUNDS: S1 normal heart sound present and S2 normal heart sound present GI: COMMON NORMALS: Normal to inspection, nondistended, normoactive bowel sounds present, Soft to palpation and non-tender PALPATION: Yes Soft to palpation Extremity: GENERAL: Yes edema (2+) Neuro: COMMON NORMALS: patient oriented x3 and moves all extremities SENSORIUM/ORIENTATION: Yes alert Skin: COMMON NORMALS: no rashes or lesions noted GENERAL SKIN EXAM: no rashes or lesions noted Data 12/01/24 09:08 12/01/24 09:08 A&P Assessment and plan 1. Decompensated heart failure: Acute diastolic congestive heart failure. Volume overload noted in ED. elevated BNP, peripheral edema, dyspnea, has missed a dose of her medications, although for the most part has been taking outpatient medications per her . Reviewed vitals, CBC, CMP, NT proBNP, CRP, UA, chest x-ray, EKG, cardiology note, ED provider note, discussed with ED provider. - Continue diuresis with furosemide 40 mg IV every 12 hours. -Had a brief episode of chest pain, although may have been related to cough, however, will assess troponin EKG series with recent STEMI. - Monitor for electrolyte deficiency and kidney injury (recheck electrolytes and kidney function). 2. Severe mitral regurgitation: Severe MR likely contributing to symptoms; recent cardiology evaluation. - Arrange follow-up with cardiology regarding severe mitral regurgitation for consideration of referral for repair. - Reviewed cardiology note; intervention not pursued yet due to recent STEMI and will be revisited. Plan: Atrial fibrillation : Known atrial fibrillation. - Monitor on telemetry due to risk of arrhythmia. - Resume metoprolol and digoxin. Hypertension : Elevated blood pressures in ED. - Resume lisinopril and metoprolol. - Monitor blood pressures. Urinary tract infection : Urinalysis with 21?50 WBCs, plan to treat. - Treat urinary tract infection. Diabetes mellitus : Diabetes referenced in plan. - Use insulin sliding scale. - Monitor blood glucose. Severe mitral valve regurgitation : Severe MR likely contributing to symptoms; recent cardiology evaluation. - Arrange follow-up with cardiology regarding severe mitral regurgitation for consideration of referral for repair. - Reviewed cardiology note; intervention not pursued yet due to recent STEMI and will be revisited. COPD with possible mild exacerbation : COPD with cough; non-productive; mild exacerbation considered. - Give breathing treatments. - Give budesonide. - Check procalcitonin. - Hold antibiotics for now due to non-productive cough. - Check viral panel for influenza, COVID, and RSV. Recent ST-elevation myocardial infarction : Recent STEMI with distal circumflex thrombus; intervention deferred. Missed her medication doses yesterday, last taken was 2 days ago. - Resume cardiac medications including apixaban, clopidogrel, metoprolol, digoxin, and atorvastatin. History of gastrointestinal bleeding due to gastric ulcer : Bleeding gastric ulcer treated with clip ~2 months ago; monitoring advised. Anticoagulation nonadherence : Missed blood thinners yesterday; last taken two days ago. - Resume apixaban and clopidogrel. Follow-up : Disposition and continuity of care. - Follow up with cardiology (Dr. Christopher); referral to be placed at discharge and cardiology has access to hospital notes. PDMP PDMP Reviewed: Not Reviewed Attestations Medical Necessity Statement*: Place in observation for additional assessment management of acute diastolic CHF with underlying severe mitral regurgitation, recent STEMI, mild COPD exacerbation, missed medication, additional comorbidities as above. and High MDM includes amount and/or complexity of data reviewed/ordered [ previous or external records, resulted lab(s)/test(s), ordered lab(s)/test(s) and other healthcare professional discussion] and described risk of complication, morbidity or mortality of management as documented Diagnoses Decompensated heart failure I50.9 Severe mitral regurgitation I34.0
--- NOTE | 2024-12-01 16:04 | PC.NURSE ---
Patient transferred from ED to CSU via a bed at 1545
--- NOTE | 2024-12-01 16:10 | PC.NURSE ---
Provider is updated that she is complaining of a headache. Provider ordered Tylenol 650mg Q4H PRN pain.
[2024-12-01] MEDS: cefTRIAXone 1,000 mg SDV 1000 MG IVP (17:52)
--- NOTE | 2024-12-01 17:52 | ECG_ITS ---
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: : 1940 Requested By: Rinku Jj Order Number: [id number] Reading MD: NANCY DAVIS Measurements Intervals Soldier Rate: 85 P: 0 OK: 0 QRS: -58 QRSD: 112 T: -24 QT: 383 QTc: 457 Interpretive Statements ATRIAL FIBRILLATION LEFT ANTERIOR FASCICULAR BLOCK [QRS AXIS <= -45, QR IN I, RS IN II] PROBABLE ANTEROLATERAL MYOCARDIAL INFARCTION , OF INDETERMINATE AGE [35 ms Q WAVE IN I/aVL/V3-V6] Compared to ECG 12/01/2024 09:04:19 Left anterior fascicular block now present Ventricular premature complex(es) no longer present Aberrant conduction of supraventricular beat(s) no longer present Indeterminate axis no longer present Myocardial infarct finding still present Electronically Signed On 12-02-2024 20:16:30 CDT by NANCY DAVIS [email or web address]
[2024-12-01 18:09] LABS: Troponin(5th) Baseline 306 ng/L (0-10)
[2024-12-01 18:37] LABS: Procalcitonin 0.04 ng/mL (0-0.5)
[2024-12-01 18:38] LABS: Respiratory Syncytial Virus Ce NEGATIVE (Negative)
[2024-12-01 18:43] LABS: SARS-CoV-2 PCR Positive (Negative)
[2024-12-01 21:30] LABS: Troponin 5 2HR 318.2 ng/L (0-10); Troponin 5 2HR Delta 12.2 ABS# (0-10)
--- NOTE | 2024-12-01 22:42 | ECG_ITS ---
[facility] Pat Name: Arielle Vences Department: Room: 111 Gender: Female Pearl Hand: : 1940 Requested By: Rinku Jj Order Number: [id number] Reading MD: NANCY DAVIS Measurements Intervals [place] Rate: 68 P: 0 RI: 0 QRS: -45 QRSD: 103 T: -51 QT: 412 QTc: 439 Interpretive Statements ATRIAL FIBRILLATION LEFT ANTERIOR FASCICULAR BLOCK [QRS AXIS <= -45, QR IN I, RS IN II] ANTEROLATERAL MYOCARDIAL INFARCTION , OF INDETERMINATE AGE [40+ ms Q WAVE IN I/aVL/V3-V6] Compared to ECG 12/01/2024 17:52:17 No significant changes Electronically Signed On 12-02-2024 20:16:18 CDT by NANCY DAVIS [id number]
[2024-12-01 23:31] LABS: Troponin 5 6HR Delta 13.5 ng/L (0-12)
[2024-12-01 23:32] LABS: Troponin 5 6HR 319.5 ng/L (0-10)
[2024-12-02] VITALS (13 sets, daily range): BP systolic 96–133; BP diastolic 57–77; PULSE 60–90; RESP 12–21; TEMP 36.3–37.2; O2SAT 86–100
--- NOTE | 2024-12-02 00:14 | PC.NURSE ---
Contacted due to patient having two episodes of 1.8 second long pauses, no new orders received just continue to monitor.
[2024-12-02 05:08] LABS: Hematocrit 35.1 % (36-47); Hemoglobin 10.30 g/dL (11.27-16.99); Mean Corpuscular HGB Conc 29.3 g/dL (30-55); Mean Corpuscular Hemoglobin 23.3 pg (27-33); Mean Corpuscular Volume 79.4 fl (85-98); Nucleated Red Blood Cells % 0 %; Platelet Count 262 10^3/cmm (157-399); Red Blood Count 4.42 10^6/uL (3.85-5.65); White Blood Count 5.32 10^3/uL (3.29-11.43)
[2024-12-02 05:28] LABS: Alanine Aminotransferase 6 U/L (0-33); Albumin Level 3.5 g/dL (3.5-5.2); Alkaline Phosphatase 79 U/L (35-105); Anion Gap 15.7 (5-19); Aspartate Amino Transferase 15 U/L (0-32); Blood Urea Nitrogen 7 mg/dL (8-23); Calcium 9.6 mg/dL (8.5-10.5); Carbon Dioxide 28 mmol/L (22-29); Chloride 98 mmol/L (98-107); Creatinine Clr Calc Pharmacy 48.0985; Globulin 2.9 g/dL (1.3-4.6); Glucose 101 mg/dL (65-115); Magnesium 1.9 mg/dL (1.7-2.3); Osmolality Calculated 284 mOsm/kg (285-295); Potassium 3.7 mmol/L (3.5-5.1); Sodium 138 mmol/L (136-145); Total Protein 6.4 g/dL (6.6-8.7)
--- NOTE | 2024-12-02 10:04 | PC.CHAP ---
Pastoral Care Encounter/Spiritual Assessment Type of Contact [] Declined application engineer visit [] Patient/Family/Request visit [] Outpatient visit [] Follow-up visit [] Physician referral [] Code/Alert [] Routine visit [] Staff referral [] Actively dying [] Patient sleeping [] Family support [] [] Out of room [] Palliative care [] [] Receiving care in room [] Pre-surgical visit [] Trauma [] Long length of stay [] ICU visit [x] Other:Contact precautions. No visit. Relational/Emotional Strength [] Patient feels connected with others/family/visitors/staff [] Distress [] Loneliness/isolation [] Abandonment Spirituality of Patient [] Person of Ashleigh [] Attends Anglican of their [place] [] Believes in Prayer [] Reads Bible or Yarsanism materials [] There are Spiritual issues to be addressed Civil Service Clerk Interventions [] Prayer [] Active listening [] Non-anxious presence [] Spiritual/emotional support [] Crisis/trauma care [] Spiritual counseling [] Bereavement support [] Provided bereavement packet [] Provided Bible/devotional materials [] Provided toy/stuffed animal, coloring book to patient or family member [] Provided Communion [] Anointing/[place] [] Salvation [] Completed spiritual assessment [] Other: Impact on Illness or Injury [] Angry [] Fearful [] Anxious [] Often cries [] Exhaustion [] Unable to work [] Unable to attend islam [] Unable to walk/stand [] Unable to read [] Unable to drive [] Unable to eat/drink [] Unable to sleep [] Unable to be with family [] Patient intubated [] Other: Summary Time spent with patient
[2024-12-02] MEDS: remdesivir 200 MG in sodium chloride 0.9% (100 ml) 60 ML 100 MG IV (10:18)
--- NOTE | 2024-12-02 11:06 | PM.PN ---
Vitals/I&O/Wt Last Vital Signs Temp 98.0 F 12/02/24 07:35 Pulse 86 12/02/24 08:58 Resp 16 12/02/24 08:58 BP 133/71 12/02/24 07:35 Pulse Ox 100 12/02/24 08:58 O2 Del Method Nasal Cannula 12/02/24 08:58 O2 Flow Rate 2 12/02/24 08:58 12/01/24 12/02/24 12/02/24 22:59 06:59 14:59 Intake Total 480 / 480 240 / 240 Balance 480 / 480 240 / 240 Weight last 48 hrs Weight 66.423 kg Weight 68.039 kg Physical Exam Narrative: at bedside Const: COMMON NORMALS: patient oriented x3 and alert GENERAL APPEARANCE: cooperative ORIENTATION/CONSCIOUSNESS: Yes awake HENMT: COMMON NORMALS: oropharynx normal Resp: COMMON NORMALS: normal respiratory effort AUSCULTATION: diminished lung sounds Cardio: COMMON NORMALS: regular rhythm, S1 normal heart sound present and S2 normal heart sound present RHYTHM: regular rhythm HEART SOUNDS: S1 normal heart sound present and S2 normal heart sound present GI: COMMON NORMALS: Normal to inspection, nondistended, normoactive bowel sounds present, Soft to palpation and non-tender PALPATION: Yes Soft to palpation Extremity: GENERAL: Yes edema (trace) Neuro: COMMON NORMALS: patient oriented x3 and moves all extremities SENSORIUM/ORIENTATION: Yes alert Skin: COMMON NORMALS: no rashes or lesions noted GENERAL SKIN EXAM: no rashes or lesions noted Data 12/02/24 04:50 12/02/24 04:50 A&P Assessment and plan 1. COVID-19: Reviewed respiratory viral panel, positive for COVID. 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 - Remdesyomaira Discussed with nursing, residential case manager. 2. Decompensated heart failure: She is subjectively feeling somewhat better. Reviewed vitals, CBC, CMP, intake and output, output is not charted unfortunately, likely difficult to track. She is feeling better subjectively. Oxygenation improving, still requiring 2 L nasal cannula oxygen. Wean down as tolerating. As above, obtain TTE to further assess for RWMA, changes in myocardial function, consider myocarditis. In case of abnormality consider cardiology consultation. Acute diastolic congestive heart failure. - Continue diuresis with furosemide 40 mg IV every 12 hours. -Had a brief episode of chest pain, although may have been related to cough, however, will assess troponin EKG series with recent STEMI. - Monitor for electrolyte deficiency and kidney injury (recheck electrolytes and kidney function). 3. Severe mitral regurgitation: Severe MR likely contributing to symptoms; recent cardiology evaluation. - Arrange follow-up with cardiology regarding severe mitral regurgitation for consideration of referral for repair. - Reviewed cardiology note; intervention not pursued yet due to recent STEMI and will be revisited. Plan: Atrial fibrillation : Known atrial fibrillation. - Monitor on telemetry due to risk of arrhythmia. - Resume metoprolol and digoxin. - Anticoagulation with Eliquis - reviewed hemoglobin, noted anemia. Monitor for risk of bleeding. Reassess blood counts. Hypertension : Elevated blood pressures in ED. with improvement. -Continue lisinopril and metoprolol. - Monitor blood pressures. Urinary tract infection : Urinalysis with 21?50 WBCs, plan to treat. Reviewed urine culture, pending. - Treat urinary tract infection. Diabetes mellitus : Diabetes referenced in plan. - Use insulin sliding scale. - Monitor blood glucose. Severe mitral valve regurgitation : Severe MR likely contributing to symptoms; recent cardiology evaluation. - Arrange follow-up with cardiology regarding severe mitral regurgitation for consideration of referral for repair. - Reviewed cardiology note; intervention not pursued yet due to recent STEMI and will be revisited. COPD with possible mild exacerbation : COPD with cough; non-productive; mild exacerbation considered. - Continue breathing treatments. - Continue budesonide. - Reviewed procalcitonin. 0.04. - Hold antibiotics for now due to non-productive cough. - Reviewed viral panel for influenza, COVID, and RSV. Positive for COVID. Recent ST-elevation myocardial infarction : Recent STEMI with distal circumflex thrombus; intervention deferred. Missed her medication doses yesterday, last taken was 2 days ago. - Resume cardiac medications including apixaban, clopidogrel, metoprolol, digoxin, and atorvastatin. History of gastrointestinal bleeding due to gastric ulcer : Bleeding gastric ulcer treated with clip ~2 months ago; monitoring advised. Anticoagulation nonadherence : Missed blood thinners yesterday; last taken two days ago. - Resume apixaban and clopidogrel. Follow-up : Disposition and continuity of care. - Follow up with cardiology (Dr. Christopher); referral to be placed at discharge and cardiology has access to hospital notes. PDMP PDMP Reviewed: Not Reviewed Attestations Medical Necessity Statement*: Admission necessary for assessment management of severe COVID-19 with new hypoxia, acute CHF, further assessment for myocarditis with COVID and after recent STEMI and High MDM includes amount and/or complexity of data reviewed/ordered [ previous or external records, resulted lab(s)/test(s), ordered lab(s)/test(s) and other healthcare professional discussion] and described risk of complication, morbidity or mortality of management as documented Diagnoses COVID-19 U07.1 Decompensated heart failure I50.9 Severe mitral regurgitation I34.0
--- NOTE | 2024-12-02 11:30 | USCV_ITS ---
Vences, Arielle Age: 83 Gender: F : 1940 Exam Date: 12/02/2024 14:19 Ordering Phys: Rinku Jj MD Technologist: Jonathan Larsen Exam Location: [facility] [place] Indication: acute chf, recent stemi, assess for rwma/ myocarditis BP: 112 / 57 HR: Rhythm: Sinus Technical Quality: Adequate MEASUREMENTS (Male / Female) Normal Values 2D ECHO LV Diastolic Diameter PLAX 5.4 cm 4.2 - 5.9 / 3.9 - 5.3 cm IVS Diastolic Thickness 1.3 cm 0.6 - 1.0 / 0.6 - 0.9 cm IVS Systolic Thickness 2.3 cm LVPW Diastolic Thickness 0.9 cm 0.6 - 1.0 / 0.6 - 0.9 cm LVPW Systolic Thickness 1.3 cm LVOT Diameter 2.0 cm LV Ejection Fraction 2D Teich 72.6 % LV Ejection Fraction MOD 4C 71.9 % LV Ejection Fraction MOD 2C 75.3 % LV Ejection Fraction 2C AL 76.9 % LA Diameter 5.3 cm RA Systolic Volume 4C AL 63.7 ml RA Systolic Volume 4C MOD 63.7 ml LA Sys Volume AL 153.1 cm cubed LA Sys Volume Index AL 86.9 cm cubed/m squared Aorta at Sinotubular Diameter 2.6 cm IVC Diameter 1.8 cm M-MODE LA Ao Ratio MM 1.9 AV Cusp Separation MM 1.9 cm FINDINGS Left Ventricle Normal left ventricular cavity size. Severe hypertrophy of the basal septum measuring 2.0 cm. No LVOT obstruction identified. No LVOT obstruction identified. Normal left ventricular systolic function. Left ventricular ejection fraction is estimated at 72%. Right Ventricle Normal right ventricular size and systolic function. Right Atrium Moderately increased right atrial size. Left Atrium Severely increased left atrial size. Mitral Valve Aortic Valve Tricuspid Valve Pulmonic Valve Pericardium Aorta IVC CONCLUSIONS 1. Normal biventricular cavity size and systolic function. LV ejection fraction 72%. No regional wall motion abnormality 2. Severe basal septal left ventricular hypertrophy with no identified left ventricular outflow tract obstruction. 3. Severe left atrial enlargement 4. Moderate right atrial enlargement 5. This study was ordered as a limited study. Dereck Angeles MD, FACC (Electronically Signed) Final Date: 02 December 2024 17:40 S
[2024-12-02] MEDS: cefTRIAXone 1,000 mg SDV 1000 MG IVP (16:56)
[2024-12-03 02:11] LABS: Hematocrit 33.7 % (36-47); Hemoglobin 9.90 g/dL (11.27-16.99); Mean Corpuscular HGB Conc 29.4 g/dL (30-55); Mean Corpuscular Hemoglobin 23.9 pg (27-33); Mean Corpuscular Volume 81.2 fl (85-98); Nucleated Red Blood Cells % 0 %; Platelet Count 236 10^3/cmm (157-399); Red Blood Count 4.15 10^6/uL (3.85-5.65); White Blood Count 4.96 10^3/uL (3.29-11.43)
[2024-12-03 02:32] LABS: Alanine Aminotransferase < 5 U/L (0-33); Albumin Level 3.5 g/dL (3.5-5.2); Alkaline Phosphatase 80 U/L (35-105); Aspartate Amino Transferase 13 U/L (0-32); Blood Urea Nitrogen 11 mg/dL (8-23); Calcium 9.4 mg/dL (8.5-10.5); Carbon Dioxide 31 mmol/L (22-29); Chloride 99 mmol/L (98-107); Creatinine Clr Calc Pharmacy 48.0985; Globulin 2.3 g/dL (1.3-4.6); Glucose 94 mg/dL (65-115); Osmolality Calculated 287 mOsm/kg (285-295); Sodium 139 mmol/L (136-145); Total Protein 5.8 g/dL (6.6-8.7)
[2024-12-03 02:34] LABS: Anion Gap 12.9 (5-19); Potassium 3.9 mmol/L (3.5-5.1)
[2024-12-03 02:43] VITALS: PULSE 61; RESP 17; O2SAT 96
[2024-12-03 03:07] VITALS: BP 103/69; PULSE 75; RESP 15; TEMP 36.1; O2SAT 96
[2024-12-03 05:29] VITALS: PULSE 75
[2024-12-03] MEDS: remdesivir 100 MG in sodium chloride 0.9% (100 ml) 80 ML IV (05:30)
[2024-12-03 07:46] VITALS: BP 133/86; PULSE 80; RESP 21; TEMP 36.6; O2SAT 96
[2024-12-03 07:56] VITALS: PULSE 80; RESP 18; O2SAT 93
--- NOTE | 2024-12-03 08:59 | PM.PN ---
Vitals/I&O/Wt Last Vital Signs Temp 97.9 F 12/03/24 07:46 Pulse 80 12/03/24 07:56 Resp 18 12/03/24 07:56 BP 133/86 12/03/24 07:46 Pulse Ox 93 12/03/24 07:56 O2 Del Method Room Air 12/03/24 07:56 O2 Flow Rate 2 12/03/24 03:07 12/02/24 12/03/24 12/03/24 22:59 06:59 14:59 Intake Total 100 / 680 Balance 100 / 680 Weight last 48 hrs Weight 66.423 kg Weight 68.039 kg Data 12/03/24 01:49 12/03/24 01:49 Micro: Microbiology 12/01/24 10:56 Urine Culture - Final Urine,Clean Catch A&P Assessment and plan 1. COVID-19: Covid on Remdesivir and apixaban and now the pt on RA 93% 2. Decompensated heart failure: She is subjectively feeling somewhat better. Reviewed vitals, CBC, CMP, intake and output, output is not charted unfortunately, likely difficult to track. She is feeling better subjectively. Oxygenation improving, still requiring 2 L nasal cannula oxygen. Wean down as tolerating. As above, obtain TTE to further assess for RWMA, changes in myocardial function, consider myocarditis. In case of abnormality consider cardiology consultation. Acute diastolic congestive heart failure. - Continue diuresis with furosemide 40 mg IV every 12 hours. -Had a brief episode of chest pain, although may have been related to cough, however, will assess troponin EKG series with recent STEMI. - Monitor for electrolyte deficiency and kidney injury (recheck electrolytes and kidney function). 3. Severe mitral regurgitation: Severe MR likely contributing to symptoms; recent cardiology evaluation. - Arrange follow-up with cardiology regarding severe mitral regurgitation for consideration of referral for repair. - Reviewed cardiology note; intervention not pursued yet due to recent STEMI and will be revisited. Plan: Atrial fibrillation : Known atrial fibrillation. - Monitor on telemetry due to risk of arrhythmia. - Resume metoprolol and digoxin. - Anticoagulation with Eliquis - reviewed hemoglobin, noted anemia. Monitor for risk of bleeding. Reassess blood counts. Hypertension : Elevated blood pressures in ED. with improvement. -Continue lisinopril and metoprolol. - Monitor blood pressures. Urinary tract infection : Urinalysis with 21?50 WBCs, plan to treat. Reviewed urine culture, pending. - Treat urinary tract infection. Diabetes mellitus : Diabetes referenced in plan. - Use insulin sliding scale. - Monitor blood glucose. Severe mitral valve regurgitation : Severe MR likely contributing to symptoms; recent cardiology evaluation. - Arrange follow-up with cardiology regarding severe mitral regurgitation for consideration of referral for repair. - Reviewed cardiology note; intervention not pursued yet due to recent STEMI and will be revisited. COPD with possible mild exacerbation : COPD with cough; non-productive; mild exacerbation considered. - Continue breathing treatments. - Continue budesonide. - Reviewed procalcitonin. 0.04. - Hold antibiotics for now due to non-productive cough. - Reviewed viral panel for influenza, COVID, and RSV. Positive for COVID. Recent ST-elevation myocardial infarction : Recent STEMI with distal circumflex thrombus; intervention deferred. Missed her medication doses yesterday, last taken was 2 days ago. - Resume cardiac medications including apixaban, clopidogrel, metoprolol, digoxin, and atorvastatin. History of gastrointestinal bleeding due to gastric ulcer : Bleeding gastric ulcer treated with clip ~2 months ago; monitoring advised. Anticoagulation nonadherence : Missed blood thinners yesterday; last taken two days ago. - Resume apixaban and clopidogrel. Follow-up : Disposition and continuity of care. - Follow up with cardiology (Dr. Christopher); referral to be placed at discharge and cardiology has access to hospital notes. PDMP PDMP Reviewed: Not Reviewed Coding Level of Care Code Acute Code for Chg Fwd Diagnoses COVID-19 U07.1 Decompensated heart failure I50.9 Severe mitral regurgitation I34.0
--- NOTE | 2024-12-03 11:24 | P.DS_ITS ---
Discharge Providers Date of Admission: 12/01/24 13:04 Date of Discharge: December 03, 2024 Attending Provider at Admission: Rinku Jj Attending Provider at Discharge: Jay Jay De Leon MD Primary Care Provider: Alison Ramos MD Diagnoses at Discharge Discharge Diagnosis 1. COVID-19: Details from hospital stay: Patient was treated with remdesivir but does not require hospitalization to complete the course. Remdesivir is discontinued. Add Decadron 2 mg daily for 3 days she was given 4 mg a day prior to discharge. Add albuterol inhaler as needed on discharge 2. Decompensated heart failure: Details from hospital stay: Patient was diuresed with IV furosemide and did well. Respiratory symptoms primarily attributable to COVID 3. Severe mitral regurgitation: Details from hospital stay: Stable 4. Atrial fibrillation: Details from hospital stay: Stable on rate control continue apixaban Reason for Visit Reason for Visit: Hard to Breath Brief History: Arielle Vences is a 83 year old woman with a history of chronic silicosis, hypertension, hyperlipidemia, atrial fibrillation with rapid ventricular response, hypothyroidism, anxiety and depression, chronic obstructive pulmonary disease (COPD), and chronic back pain presents to the emergency department for difficulty breathing and shortness of breath. Not normally on supplemental oxygen but currently requiring 2 L/min via nasal cannula. Reports mild, non- productive cough for a couple of days. Denies chest pain at present; there was an episode of chest discomfort about an hour prior while downstairs that has since resolved. Reports feeling cold in the feet and requested blankets. Endorses leg swelling, which had not occurred for almost two years prior to this episode. No fever, chills, myalgias, headache, sore throat, or sneezing. Had nausea earlier without emesis. She typically takes furosemide (Lasix) as needed. Medication adherence has been inconsistent; blood thinners were missed yesterday, with the last dose taken two days ago. Former smoker. Does not limit fluid intake. In the emergency department: initial blood pressure on presentation 180/111 mmHg; subsequent blood pressure 163/91 mmHg; respiratory rate 17; temperature 98.1?F; oxygen saturation 93% on 2 L/min nasal cannula. Laboratory results: white blood cell count normal; hemoglobin normal; platelets 320; sodium/potassium/chloride within normal limits; bicarbonate 26; anion gap 17; blood urea nitrogen 16; creatinine 1.0; glucose 124; liver enzymes within normal limits; C-reactive protein (CRP) 17.5; N-terminal pro?B-type natriuretic peptide (NT-proBNP) 6344; urinalysis with 21?50 white blood cells (WBCs), 0?2 red blood cells (RBCs); digoxin level 0.6; chest X-ray without acute findings; electrocardiogram (EKG) shows atrial fibrillation (known). Prior transthoracic echocardiogram on November 21, 2024 (during recent hospitalization) showed no rmal ejection fraction, no regional wall motion abnormalities, severe mitral valve regurgitation (MVR), [id number] aortic valve regurgitation (AVR), and severe tricuspid valve regurgitation (TVR). Recent hospitalization: discharged November 25, evaluated for chest pain with initial concern for ST-elevation myocardial infarction (STEMI); anticoagulated for distal circumflex (ACX) thrombus. Hospitalization complicated by shock and acute anemia requiring blood transfusion and transient vasopressors. Two months ago had a bleeding gastric ulcer treated with endoscopic clip placement; instructed to monitor for melena. Follow-up: saw care program resident (Dr. Christopher) a couple of days ago with a follow-up scheduled in one month. The leaky mitral valve was discussed as a possible contributor to symptoms, with potential referral for repair to be determined by cardiology. Code status discussed; patient would want cardiopulmonary resuscitation (CPR Hospital Course Hospital Course 83-year-old female with recent admission for STEMI not amenable to stents due to angiogram showing distal LAD and circumflex disease with small vessel caliber. She was known to also have atrial fibrillation and is on Eliquis. She came in with new diagnosis of COVID and associated with heart failure. She was diuresed and treated with remdesivir and is much improved. Today she is on room air and would like to go home. Physical Exam Narrative: General well-developed well-nourished female in no acute cardiopulmonary stress CV irregular rhythm rate is controlled Lungs scattered rhonchi improved with deep breaths and cough but not completely resolved. Air movement is good deep breaths cause some coughing Abdomen positive bowel tones soft nontender Calves trace ankle edema Discharge Data Studies Completed and Pending Completed Studies During Hospitalization Category Date Time Status XR chest 1V portable [id number] Stat Exams 12/01/24 09:19 Completed CV. echo limited [id number] Routine Ultrasound 12/02/24 11:30 Completed Pending at discharge Category Date Time Status Complete Blood Count w/Auto AM LABS Lab 12/04/24 04:00 Ordered Comprehensive Metabolic Panel AM LABS Lab 12/04/24 04:00 Ordered Radiology Impressions Chest X-Ray 12/01/24 09:19 IMPRESSION: No acute findings. Laboratory Results WBC 4.96 10^3/uL (3.29-11.43) 12/03/24 01:49 RBC 4.15 10^6/uL (3.85-5.65) 12/03/24 01:49 Hgb 9.90 g/dL (11.27-16.99) L 12/03/24 01:49 Hct 33.7 % (36-47) L 12/03/24 01:49 MCV 81.2 fl (85-98) L 12/03/24 01:49 MCH 23.9 pg (27-33) L 12/03/24 01:49 MCHC 29.4 g/dL (30-55) L 12/03/24 01:49 RDW 23.0 % (12.1-15.1) H 12/03/24 01:49 Plt Count 236 10^3/cmm (157-399) 12/03/24 01:49 MPV 9.8 fL (7.4-10.4) 12/03/24 01:49 Neut % (Auto) 60.4 % 12/03/24 01:49 Lymph % (Auto) 15.1 % 12/03/24 01:49 [place] % (Auto) 18.3 % 12/03/24 01:49 Eos % (Auto) 5.0 % 12/03/24 01:49 Baso % (Auto) 0.8 % 12/03/24 01:49 Neut # (Auto) 2.99 10^3/uL (1.8-7.7) 12/03/24 01:49 Lymph # (Auto) 0.8 10^3/uL (0.8-4.8) 12/03/24 01:49 [place] # (Auto) 0.9 10^3/uL (0.2-0.9) 12/03/24 01:49 Eos # (Auto) 0.3 10^3/uL (0.0-0.8) 12/03/24 01:49 Baso # (Auto) 0.0 10^3/uL (0.0-0.1) 12/03/24 01:49 Nucleated RBC % (auto) 0 % 12/03/24 01:49 Nucleated RBCs # 0.0 /100WBC 12/03/24 01:49 Sodium 139 mmol/L (136-145) 12/03/24 01:49 Potassium 3.9 mmol/L (3.5-5.1) 12/03/24 01:49 Chloride 99 mmol/L (98-107) 12/03/24 01:49 Carbon Dioxide 31 mmol/L (22-29) H 12/03/24 01:49 Anion Gap 12.9 (5-19) 12/03/24 01:49 BUN 11 mg/dL (8-23) 12/03/24 01:49 Creatinine 0.9 mg/dL (0.5-0.9) 12/03/24 01:49 GFR Calculation Not Reportable 12/03/24 01:49 Glucose 94 mg/dL (65-115) 12/03/24 01:49 Calculated Osmolality 287 mOsm/kg (285-295) 12/03/24 01:49 Calcium 9.4 mg/dL (8.5-10.5) 12/03/24 01:49 Magnesium 1.9 mg/dL (1.7-2.3) 12/02/24 04:50 Total Bilirubin 0.3 mg/dL (0.15-1.2) 12/03/24 01:49 AST 13 U/L (0-32) 12/03/24 01:49 ALT < 5 U/L (0-33) 12/03/24 01:49 Alkaline Phosphatase 80 U/L (35-105) 12/03/24 01:49 Troponin T Baseline 306 ng/L (0-10) H* 12/01/24 17:06 Troponin T 120 Minute 318.2 ng/L (0-10) H 12/01/24 20:10 Delta Troponin T 12.2 ABS# (0-10) H* 12/01/24 20:10 Troponin T Hi Sens 6Hr 319.5 ng/L (0-10) H 12/01/24 22:58 Troponin T Hi Sens 6Hr Delta 13.5 ng/L (0-12) H* 12/01/24 22:58 C-Reactive Protein 17.5 mg/L (0.0-4.9) H 12/01/24 09:08 NT-Pro-B Natriuret Pep 6344 pg/mL (0-450) H 12/01/24 09:08 Total Protein 5.8 g/dL (6.6-8.7) L 12/03/24 01:49 Albumin 3.5 g/dL (3.5-5.2) 12/03/24 01:49 Globulin 2.3 g/dL (1.3-4.6) 12/03/24 01:49 Procalcitonin 0.04 ng/mL (0-0.5) 12/01/24 17:06 Urine Color Dark yellow (Yellow) A 12/01/24 10:56 Urine Appearance Clear (CLEAR) 12/01/24 10:56 Urine pH 5.5 (5-7) 12/01/24 10:56 Ur Specific [place] 1.015 (1.005-1.030) 12/01/24 10:56 Urine Protein Trace (Negative) A 12/01/24 10:56 Urine Glucose (UA) Negative (Normal) 12/01/24 10:56 Urine Ketones Trace (Negative) 12/01/24 10:56 Urine Blood Negative (Negative) 12/01/24 10:56 Urine Nitrate Negative (Negative) 12/01/24 10:56 Urine Bilirubin Negative (Negative) 12/01/24 10:56 Urine Urobilinogen 1.0 mg/dL (Negative) 12/01/24 10:56 Ur Leukocyte Esterase 2+ (Negative) A 12/01/24 10:56 Urine RBC 0-2 /hpf (0-2) 12/01/24 10:56 Urine WBC 21-50 /hpf (0-5) H 12/01/24 10:56 Ur Squamous Epith Cells 6-10 /hpf (0-5) 12/01/24 10:56 Amorphous Sediment Not Reportable 12/01/24 10:56 Urine Bacteria None seen /hpf (NONE) 12/01/24 10:56 Hyaline Casts 0.81 /lpf 12/01/24 10:56 Digoxin 0.6 ng/mL (0.6-1.2) 12/01/24 09:08 Influenza A (PCR) Negative (Negative) 12/01/24 16:45 Influenza Type B (PCR) Negative (Negative) 12/01/24 16:45 RSV (PCR) Negative (Negative) 12/01/24 16:45 SARS-CoV-2 (PCR) Positive (Negative) A 12/01/24 16:45 Vitals Last Vital Signs Temp 97.9 F 12/03/24 07:46 Pulse 80 12/03/24 07:56 Resp 18 12/03/24 07:56 BP 133/86 12/03/24 07:46 Pulse Ox 93 12/03/24 07:56 O2 Del Method Room Air 12/03/24 07:56 O2 Flow Rate 2 12/03/24 03:07 Discharge Plan Discharge Patient Disposition: Home Condition: Stable Prescriptions: New acetaminophen 325 mg Tablet 650 mg PO Q4H PRN (Reason: Mild Pain Or Increase Temp) Qty: 1 0RF albuterol sulfate [Ventolin HFA] 90 mcg/actuation HFA aerosol inhaler 2 inh inhalation Q4H PRN (Reason: shortness of breath or wheezing) Qty: 8.5 0RF dexamethasone 2 mg tablet 2 mg PO DAILY Qty: 3 0RF Continued levothyroxine 88 mcg tablet 88 mcg PO QAM gabapentin 600 mg tablet 600 mg PO TID loratadine 10 mg tablet 10 mg PO DAILY Myrbetriq 50 mg tablet extended release 24 hr 50 mg PO QAM clopidogrel 75 mg tablet See Rx Instructions .ROUTE .COMPLEX Qty: 30 0RF Dose Instruction: TAKE ONE TABLET BY MOUTH DAILY Rx Instructions: TAKE ONE TABLET BY MOUTH DAILY trazodone 50 mg Tablet 25 - 50 mg PO BEDTIME PRN (Reason: Sleep) cholecalciferol (vitamin D3) 1,250 mcg (50,000 unit) capsule 50,000 unit PO Q7D Rx Instructions: (ON SUNDAYS) nitroglycerin 0.4 mg tablet, sublingual 0.4 mg SUBLINGUAL Q5M PRN (Reason: chest pain) Qty: 30 0RF Rx Instructions: do not exceed 3 doses per episode tizanidine 2 mg tablet 2 mg PO BID pravastatin 40 mg tablet 40 mg PO DAILY amlodipine 10 mg tablet 10 mg PO DAILY Jardiance 10 mg tablet 10 mg PO QAM digoxin 125 mcg (0.125 mg) tablet 125 mcg PO QAM potassium chloride 20 mEq tablet extended release 20 meq PO DAILY montelukast 10 mg Tablet 10 mg PO QAM donepezil 10 mg tablet 10 mg PO QAM duloxetine 60 mg capsule,delayed release(DR/EC) 60 mg PO QAM pantoprazole 40 mg tablet,delayed release (DR/EC) 40 mg PO Q12H nystatin 100,000 unit/gram cream 1 applic topical TID atorvastatin 40 mg Tablet 20 mg PO BEDTIME Qty: 30 0RF sucralfate 100 mg/mL Suspension 1 g PO AC&BEDTIME 28 Days Qty: 1000 0RF metoprolol tartrate 25 mg Tablet 25 mg PO BID@0900,2100 Qty: 60 0RF Eliquis 5 mg tablet 5 mg PO BID Qty: 60 0RF furosemide 20 mg tablet 20 mg PO QAM PRN (Reason: weight gain of 5 lbs) Qty: 10 0RF hydrocodone-acetaminophen 10-325 mg tablet 1 tab PO TID PRN (Reason: Pain) lisinopril 10 mg tablet 10 mg PO BID Referrals: Alison Ramos MD [Primary Care Provider, Internal Medicine] - 1 week Referral Note: Please call the office on Thursday to schedule a follow up appt in the next 7-10 days Discharge Diet: Cardiac and Low Salt Discharge Activity: Increase activity as tolerated Patient Instructions: COVID-19 and Chronic Health Conditions (DC), Face Coverings (Masks) and COVID-19 (DC), Opioid Safety, Patient Portal & Jos[facility]at Instructions Activity Restrictions/Additional Instructions: Take dexamethasone 2 mg daily for COVID related lung inflammation for 3 days. This should decrease wheezing and cough Use albuterol 2 puffs every 4 hours as needed for wheezing Resume your Eliquis anticoagulation Plavix and other medications as prescribed Return for worsened shortness of breath Discharge Attestations Time Spent in Discharge Care*: greater than 30 min Time Spent in Smoking Cessation: Patient is not a smoker says she quit 50 years ago Status at Discharge: Cognitive status at discharge: cognitively intact , Behavioral status at discharge: cooperative , Quality Metrics Clinical Quality Measures [ No reported AMI, CVA or VTE this stay] Coding Level of Care Code 71793 Diagnoses COVID-19 U07.1 Decompensated heart failure I50.9 Severe mitral regurgitation I34.0 Atrial fibrillation I48.91 Time Spent (min) 45
[2024-12-03 13:56] VITALS: BP 114/72; PULSE 76; RESP 18; O2SAT 94
== END 2024-12-03 14:00 | disposition home or self-care (01) ==
LOC: ER 12:06 → ER IP 13:04 → CSU 14:35
PROVIDERS: Admitting Provider Internal Medicine; Emergency Provider Family Medicine; PCP Internal Medicine; Visit Provider Internal Medicine
DX: U07.1 COVID-19 (principal); I50.9 Heart failure, unspecified; I34.0 Nonrheumatic mitral (valve) insufficiency; I48.91 Unspecified atrial fibrillation; Z79.01 Long term (current) use of anticoagulants; K21.9 Gastro-esophageal reflux disease without esophagitis; J62.8 Pneumoconiosis due to other dust containing silica; E03.9 Hypothyroidism, unspecified; F41.8 Other specified anxiety disorders; J44.9 Chronic obstructive pulmonary disease, unspecified; I89.0 Lymphedema, not elsewhere classified; K52.9 Noninfective gastroenteritis and colitis, unspecified; R91.1 Solitary pulmonary nodule; K57.92 Diverticulitis of intestine, part unspecified, without perforation or abscess without bleeding; F03.90 Unspecified dementia, unspecified severity, without behavioral disturbance, psychotic disturbance, mood disturbance, and anxiety; E78.2 Mixed hyperlipidemia; Z87.891 Personal history of nicotine dependence
CPT/HCPCS: 36415; 71045; 80053; 80162; 81001; 83735; 83880; 84145; 84484; 85025; 86140; 87086; 87637; 93005; 93308; 94640; 96365; 96366; 96375; 99285; G0378; J0248; J0696; J1100; J1938; J2405; J7626; J9999

== ENCOUNTER 2024-12-07 13:48 | Emergency (ER) | payer MEDICARE, MEDICAID, SELFPAY ==
--- OUTSIDE RECORDS SUMMARY | 2024-12-06 09:45 | XMS_ITS | Encounter Summary ---
Author Organization [facility] Address [address] [place] [address] Care Team Providers Care Fuel System Maintenance Worker Name Role Phone Alison Ramos MD Primary Care Provider Reason for Visit * Reason Comments Hospital Follow Up Patient has been in the hospital at [facility] twice recently, once for STEMI and once for CHF. Her most recent discharge was a little over a week ago. She had a follow up appointment with cardiology, Dr. Christopher, the day after her hospital discharge and has another appointment with him this coming Thursday. Encounter Details Date Type Department Care Team (Latest Contact Info) Description 12/06/2024 9:45 AM CDT Office Visit [facility] Primary Care [place] [address] [place] [address] [facility] [place] [place] [address] Alison Ramos MD [address] [place] [address] Anemia, unspecified type (Primary Dx); Primary osteoarthritis involving multiple joints; Atherosclerosis of [place] coronary artery of [place] heart without angina pectoris; Type 2 diabetes mellitus with hyperosmolarity without coma, without long-term current use of insulin ([facility]) Social History Tobacco Use Types Packs/Day Years Used Date Smoking Tobacco: Never Smokeless Tobacco: Never Tobacco Cessation:Counseling Given: No Alcohol Use Standard Drinks/Week Comments Not Currently [...] on file 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 Gender Identity Not on file Sexual Orientation Not on file documented as of this encounter Last Filed Vital Signs Vital Sign Reading Time Taken Comments Blood Pressure 120/80 12/06/2024 11:00 AM CDT Pulse 72 12/06/2024 11:00 AM CDT Temperature 36.3 C (97.4 F) 12/06/2024 11:00 AM CDT Respiratory Rate 16 12/06/2024 11:00 AM CDT Oxygen Saturation 94% 12/06/2024 11:00 AM CDT Inhaled Oxygen Concentration - - Weight 67.8 kg (149 lb 6.4 oz) 12/06/2024 11:00 AM CDT Height 167.6 cm (5' 6 ) 12/06/2024 11:00 AM CDT Body Mass Index 24.11 12/06/2024 11:00 AM CDT documented in this encounter Plan of Treatment Upcoming Encounters Date Type Department Care Team (Late st Contact Info) Description 01/05/2025 10:30 AM CDT Office Visit [facility] Primary Care [place] [address] [facility] [place] [address] [facility] [phone] Alison Ramos MD [address] [facility] [address] [place] [address] Scheduled Orders Name Type Priority Associated Diagnoses Orde r Schedule CBC WITH DIFFERENTIAL Lab Routine Primary osteoarthritis involving multiple joints Anemia, unspecified type Atherosclerosis of [place] coronary artery of [place] heart without angina pectoris Ordered: 12/06/2024 HEMOGLOBIN A1C Lab Routine Type 2 diabetes mellitus with hyperosmolarity without coma, without long-term current use of insulin ([facility]) Ordered: 12/06/2024 documented as of this encounter Results * BASIC METABOLIC PANEL (12/06/2024 11:45 AM CDT) SODIUM 136 136 - 145 mmol/L 12/06/2024 3:57 PM CDT [facility] POTASSIUM 4.8 3.2 - 4.9 mmol/L 12/06/2024 3:57 PM CDT [facility] [place] CHLORIDE 101 98 - 107 mmol/L 12/06/2024 3:57 PM CDT [facility] [place] CO2 28 22 - 29 mmol/L 12/06/2024 3:57 PM CDT [facility] [place] CALCIUM 9.4 8.4 - 10.5 mg/dL 12/06/2024 3:57 PM CDT [facility] [place] BUN 20 6 - 24 mg/dL 12/06/2024 3:57 PM CDT [facility] [place] CREATININE 1.15 0.50 - 1.20 mg/dL 12/06/2024 3:57 PM T [facility] Comment:The GFR result is no t clinically significant on patients <18 or >70 years of age. GLUCOSE 97 70 - 115 mg/dL 12/06/2024 3:57 PM T [facility] GFR 48 mL/min/1.7 3 sq meter 12/06/2024 3:57 PM T [facility] [place] Comment:eGFR calculated with 2020 CKD-EPI equation. Vegetarian diet, extremely high or low muscle mass, and may affect results. Cystatin C with Glomerular Filtration Rate is a suitable alternative for these patients. ANION GAP 7 7 - 16 mmol/L 12/06/2024 3:57 PM CDT [facility] Blood Venipuncture / Unknown 12/06/2024 11:45 AM CDT 12/06/2024 3:01 PM CDT us Alison Ramos MD CHEMISTRY ORDERABLES F inal Result [facility] [id number] [address] [place] [address] * (ABNORMAL) IRON, TIBC, AND PERCENT SATURATION (12/06/2024 11:45 AM CDT) IRON 46(L) 50 - 170 ug/dL 12/06/2024 4:02 PM CDT [facility] [place] TIBC 371 250 - 450 ug/dL 12/06/2024 4:02 PM CDT [facility] [place] IRON % SATURATION 12(L) 14 - 33 % 12/06/2024 4:02 PM CDT [facility] [place] Blood Venipuncture / Unknown 12/06/2024 11:45 AM CDT 12/06/2024 3:01 PM CDT us Alison Ramos MD CHEMISTRY ORDERABLES F inal Result [facility] [id number] [address] [place] [address] [address] [place] [address] documented in this encounter Visit Diagnoses Diagnosis Anemia, unspecified type- Primary Primary osteoarthritis involving multiple joints Atherosclerosis of [place] coronary artery of [place] heart without angina pectoris Type 2 diabetes mellitus with hyperosmolarity without coma, without long-term current use of insulin ([facility]) documented in this encounter Care Teams Fuel System Maintenance Worker Relationship Specialty Start Date End Date Alison Ramos MD [address] [facility] [address] [place] [address] PCP - General Internal Medicine 07/21/24 documented as of this encounter
--- OUTSIDE RECORDS SUMMARY | 2024-12-06 12:45 | XMS_ITS | Encounter Summary ---
Author Organization [facility] Address [address] [place] [address] Care Team Providers Care Metal Leaf Layer Name Role Phone Alison Ramos MD Primary Care Provider Reason for Visit * Reason Comments Labs Only Encounter Details Date Type Department Care Team (Latest Contact Info) Description 12/06/2024 12:45 PM CDT Procedure visit [facility] [place] [address] [place] [address] [place] [address] Alison Ramos MD [address] [place] [address] [place] [phone] Anemia, unspecified type; Atherosclerosis of [place] coronary artery of [place] heart without angina pectoris Social History Tobacco Use Types Packs/Day Years Used Date Smoking Tobacco: Never Smokeless Tobacco: Never Alcohol Use Standard Drinks/Week [...] on file 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 [place] [address] [place] [phone] Alisno Ramos MD [address] [place] [phone] documented as of this encounter Procedures Procedure Name Priority Date/Time Associated Diagnosis Comments IRON, TIBC, AND PERCENT SATURATION Routine 12/06/2024 11:45 AM CDT Anemia, unspecified type Atherosclerosis of [place] coronary artery of [place] heart without angina pectoris BASIC METABOLIC PANEL Routine 12/06/2024 11:45 AM CDT Anemia, unspecified type Atherosclerosis of [place] coronary artery of [place] heart without angina pectoris documented in this encounter Results * BASIC METABOLIC PANEL (12/06/2024 11:45 AM CDT) SODIUM 136 136 - 145 mmol/L 12/06/2024 3:57 PM CDT [facility] [place] POTASSIUM 4.8 3.2 - 4.9 mmol/L 12/06/2024 3:57 PM CDT [facility] CHLORIDE 101 98 - 107 mmol/L 12/06/2024 3:57 PM CDT [facility] CO2 28 22 - 29 mmol/L 12/06/2024 3:57 PM CDT [facility] [place] CALCIUM 9.4 8.4 - 10.5 mg/dL 12/06/2024 3:57 PM CDT [facility] [place] BUN 20 6 - 24 mg/dL 12/06/2024 3:57 PM CDT [facility] CREATININE 1.15 0.50 - 1.20 mg/dL 12/06/2024 3:57 PM CDT [facility] [place] Comment:The GFR result is no t clinically significant on patients <18 or >70 years of age. GLUCOSE 97 70 - 115 mg/dL 12/06/2024 3:57 PM CDT [facility] [place] GFR 48 mL/min/1.7 3 sq meter 12/06/2024 3:57 PM CDT [facility] [place] Comment:eGFR calculated with 2020 CKD-EPI equation. Vegetarian diet, extremely high or low muscle mass, and may affect results. Cystatin C with Glomerular Filtration Rate is a suitable alternative for these patients. ANION GAP 7 7 - 16 mmol/L 12/06/2024 3:57 PM CDT [facility] [place] Blood Venipuncture / Unknown 12/06/2024 11:45 AM CDT 12/06/2024 3:01 PM CDT Alison Ramos MD CHEMISTRY ORDERABLES F inal Result Performing Organization Address [facility] de Phone Number [facility] [employer] [facility] [id number] [address] [place] [address] [place] [address] * (ABNORMAL) IRON, TIBC, AND PERCENT SATURATION (12/06/2024 11:45 AM CDT) IRON 46(L) 50 - 170 ug/dL 12/06/2024 4:02 PM CDT [facility] [place] TIBC 371 250 - 450 ug/dL 12/06/2024 4:02 PM CDT [facility] [place] IRON % SATURATION 12(L) 14 - 33 % 12/06/2024 4:02 PM CDT [facility] [place] Blood Venipuncture / Unknown 12/06/2024 11:45 AM CDT 12/06/2024 3:01 PM CDT Alison Ramos MD CHEMISTRY ORDERABLES F inal Result Performing Organization Address [facility] Co de Phone Number [facility] [employer] [facility] [id number] [address] [place] [address] [place] [address] documented in this encounter Visit Diagnoses Diagnosis Anemia, unspecified type Atherosclerosis of [place] coronary artery of [place] heart without angina pectoris documented in this encounter Care Teams Metal Leaf Layer Relationship Specialty Start Date End Date Alison Ramos MD [address] [facility] [address] [place] [address] PCP - General Internal Medicine 07/21/24 documented as of this encounter
[2024-12-07 13:50] VITALS: BP 98/57; PULSE 56; RESP 18; TEMP 36.7; O2SAT 98; BMI 25.8
--- OUTSIDE RECORDS SUMMARY | 2024-12-07 14:03 | XMS_ITS | Encounter Summary ---
Author Organization [facility] Address 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 [address] [place] [phone] documented as of this encounter Procedures Procedure Name Priority Date/Time Associated Diagnosis Comments RHEUMATOID FACTOR Routine 12/31/2023 12: 00 AM CDT ROBERT SCREEN W/REFLEX Routine 12/31/2023 1 2:00 AM CDT documented in this encounter Results * RHEUMATOID FACTOR (12/31/2023 12:00 AM CDT) RHEUMATOID FACTOR <13 <=30 IU/mL 12/31/2023 8:04 PM CDT [facility] Blood 12/31/2023 12/31/2023 4:2 2 PM CDT us Alison Ramos MD CHEMISTRY ORDERABLES F inal Result [facility] [id number] [address] [place] [address] * ROBERT SCREEN W/REFLEX (12/31/2023 12:00 AM CDT) ROBERT SCREEN NEGATIVE NEGATIVE 01/05/2024 2:47 PM CDT [facility] Comment: ROBERT IFA is a first line [...] AC-0: Negative International Consensus on ROBERT Patterns (https://doi.org/10.1515/adpy-5691-8296) For additional information, please refer to http://education.XiaoSheng.fm.Getup Cloud/faq/XBY758 (This link is being provided for informational/ educational purposes only.) Blood Collection / Unknown 12/31/2023 12/31/2023 4:22 PM CDT Narrative [facility] - 01/05/2024 2:47 PM CDT Performing Organization Information: Site ID: [id number] Name: [facility] Address: [address] [place] [address] Director: Farrukh Montenegro MD us Alison Ramos MD CHEMISTRY ORDERABLES F inal Result [facility] [phone] documented in this encounter Visit Diagnoses Not on filedocumented in this encounter Additional Health Concerns Infection Onset Date Last Indicated Resolved Time R/O COVID-19 06/17/2024 06/17/2024 06/17/2024 9:17 AM CDT R/O COVID-19 08/26/2024 08/26/2024 08/26/2024 10:2 7 AM CDT documented as of this encounter Care Teams Household Appliances Service Technician Relationship Specialty Start Date End Date Alison Ramos MD [address] [place] [address] [place] [phone] PCP - General Internal Medicine 07/21/24 documented as of this encounter
--- OUTSIDE RECORDS SUMMARY | 2024-12-07 14:03 | XMS_ITS | Encounter Summary ---
Author Organization [facility] Address 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 Gender Identity Not on file Sexual Orientation Not on file documented as of this encounter Plan of Treatment Upcoming Encounters Date Type Department Care Team (Late st Contact Info) Description 01/05/2025 10:30 AM CDT Office Visit [facility] Primary [facility] [place] [address] [place] [address] [place] [phone] Alison Ramos MD [address] [facility] [address] [place] [phone] documented as of this encounter Visit Diagnoses Not on filedocumented in this encounter Care Teams Small Battery Plate Assembler Relationship Specialty Start Date End Date Alison Ramos MD [address] [facility] [address] [place] [phone] PCP - General Internal Medicine 07/21/24 documented as of this encounter
--- OUTSIDE RECORDS SUMMARY | 2024-12-07 14:03 | XMS_ITS | Clinical Summary ---
Author Organization [facility] Address [address] [facility] [address] [place] [address] Phone Care Team Providers Care Last Sawyer Name Role Phone Alison Ramos MD Primary [...] Take 10 mg by mouth daily. Active sod.chlorid/potas sium chloride (THERMOTABS ORAL) Take 1 Tablet by [...] times daily for anxiety. 60 Tablet 5 4 10:34 AM ASSOCIATE MEDIA DIRECTOR 02/01/20 24 Active diclofenac sodium (VOLTAREN) 1 % gel Apply 2 Grams to affected area 3 times daily to joint for arthritis. 300 Gram 5 02/01/20 24 Active lidocaine (Lidoderm) 5 % Adhesive Patch, Medicated Apply 1-2 Patches to affected area daily. 60 Patch 3 03/11/20 24 Active nystatin (MYCOSTATIN) 100,000 unit/gram Cream Apply 1 APPLICATION Topically Three times a day 60 Gram 1 5 3:07 PM ASSOCIATE MEDIA DIRECTOR 04/13/19 25 Active fluticasone propionate (FLONASE) 50 mcg/spray [place], Suspension nasal inhaler Administer 2 Sprays in each nostril daily. 16 Gram 06/18/19 25 Active pantoprazole (PROTONIX) 40 mg Tablet, Delayed Release (E.C.) Take 1 Tablet (40 mg) by mouth 2 times daily. 60 Tablet 1 07/21/19 25 Active nystatin (MYCOSTATIN) 100,000 unit/gram Ointment Apply topically to affected area 2 times daily. 30 Gram 2 5 2:54 PM CDT 08/10/19 25 Active Additional Information Patient not taking.Informant: Spouse, Reported on 12/06/2024 promethazine-dext romethorphan (PHENERGAN-DM) 6.25-15 mg/5 mL syrup Take 5-10 mL by mouth every 8 hours as needed for cough. 473 mL 08/10/19 Active Additional Information Patient not taking.Informant: Spouse, Reported on 12/06/2024 naloxone (NARCAN) 4 mg/spray [place], Non-Aerosol EMERGENCY USE ONLY: Administer 1 spray (4 mg) in one nostril one time. May repeat in alternating nostrils every 2-3 min until responsive or EMS arrives. 2 Each 3 08/28/19 Active ferrous sulfate (Iron) 325 mg (65 mg iron) tablet Take 1 Tablet (325 mg) by mouth daily. 90 Tablet 3 09/09/19 Active olopatadine 0.7 % Drops Administer 1 Drop in both eyes once to twice daily as needed for allergy. 5 mL 2 10/08/19 Active apixaban (ELIQUIS) 2.5 mg tablet Take 1 Tablet (2.5 mg) by mouth 2 times daily. 60 Tablet 6 10/08/19 Active sucralfate (CARAFATE) 1 gram tablet Take 1 Gram by mouth 4 times daily before meals and at bedtime. Active calcium CARBONATE + vitamin D (CALTRATE+D) [...] see administration instructions. EVERY 6 MONTHS Active HYDROcodone-aceta minophen (NORCO) 10-325 mg TabletIndications :Primary osteoarthritis involving multiple joints Take 1 Tablet by mouth every 8 hours as needed for Pain, Moderate. Max Daily Amount: 3 Tablets 90 Tablet 5 11:43 AM CDT 12/07/19 25 Active HYDROcodone-aceta minophen (NORCO) 10-325 mg TabletIndications :Primary osteoarthritis involving multiple joints Take 1 Tablet by mouth every 8 hours as needed for Pain, Moderate. Max Daily Amount: 3 Tablets 90 Tablet 5 3:20 PM CDT 11/08/192024 Discontin ued(Reord er) amoxicillin-clavu lanate (AUGMENTIN) 875-125 mg tablet Take 1 Tablet by mouth every 12 hours for 10 days. 20 Tablet 11/15/19 25 2024 Active Problems Problem Noted Date Diagnosed [...] Encounters Date Type Department Care Team Description 12/06/2024 12:45 PM CDT Procedure visit [facility] Services [place] [address] [facility] [address] [place] [address] [place] [phone] Alison Ramos MD Anemia, unspecified type; Atherosclerosis of [place] coronary artery of [place] heart without angina pectoris 12/06/2024 9:45 AM CDT Office Visit [facility] Primary [facility] [address] [facility] [address] [place] [address] [place] [address] Alison Ramos MD Anemia, unspecified type (Primary Dx); Primary osteoarthritis involving multiple joints; Atherosclerosis of [place] coronary artery of [place] heart without angina pectoris; Type 2 diabetes mellitus with hyperosmolarity without coma, without long-term current use of insulin ([facility]) 12/04/2024 Orders Only [facility] ABSTRACTION Provider, Abstract 12/04/2024 Abstract [facility] ABSTRACTION Provider, Abstract 11/24/2024 Abstract [facility] Primary [facility] [place] [address] [facility] [address] [place] [address] [place] [address] Alison Ramos MD 11/22/2024 [facility] Laboratory Services [place] [address] [place] [address] [place] [phone] Alison Ramos MD reschedule appointment 11/21/2024 Abstract [facility] ABSTRACTION Provider, Abstract 11/14/2024 6:32 PM CDT - 11/14/2024 9:59 PM CDT Emergency [facility] Emergency [facility] [address] [facility] [place] [address] Kvng Nolan MD Colitis (Primary Dx) Discharge Disposition: Home or Self Care 11/14/2024 Travel 11/07/2024 Refill [facility] [place] [address] [address] [place] [address] [place] [address] Alison Ramos MD Primary osteoarthritis involving multiple joints (Primary Dx) 11/07/2024 Refill [facility] [place] [address] [place] [address] [place] [address] Alison Ramos MD Degeneration of intervertebral disc of lumbar region with discogenic back pain (Primary Dx) 11/04/2024 Telephone [facility] [place] [address] [address] [place] [address] [place] [address] Alison Ramos MD Medication Refill (Hydrocodone refill) 10/18/2024 1:58 PM CDT - 10/18/2024 4:05 PM CDT Emergency [facility] Emergency Medicine [address] [facility] [address] [place] [phone] Colitis (Primary Dx); Anemia, chronic disease Discharge Disposition: Home or Self Care 10/18/2024 Travel 09/20/2024 External Device Data Initial Department [address] [place] [address] Dr SUÁREZ: Prelude [place] [address] Raymond Faustin Md from Last 3 Months Immunizations Immunization Administration Dates Next Due (ADACEL/BOOSTRIX)(10 YR UP) TDAP VACCINE, 0.5ML, IM 05/11/2019,12/11/2018 (AREXVY)(60 YR UP) RSV, ABEL MBINANT, PROTEIN SUBUNIT RSVPREF, ADJUVANT RECONSTITUTED, 0.5 ML, PF 02/03/2023 (PREVNAR 20)(6 WKS UP) PNEUM OCOCCAL CONJUGATE VACCINE 20-VALENT (PCV20), POLYSACCHARIDE [id number] CONJUGATE, ADJUVANT 0.5 ML (PF) IM 03/03/2023 INFLUENZA VACCINE HIGH DOSE QUADRIVALENT 65 YR UP PF IM 12/31/2023,01/05/2023,12/26/2021,12/31,12/11/2016 Influenza Seasonal Unspecifi ed Formulation IM 12/26/2014 PNEUMOVAX (PPSV23) pneumococ rogelio polysaccharide 23-valent Vaccine 12/31/2017 Zoster, Unspecified Formulation 02/01/2024 Family History Medical History Relation Name Comments [...] on file Legal Sex Female 11:31 PM 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 DIRECTOR Gender Identity Not on file Sexual Orientation [...] Mass Index 24.11 12/06/2024 11:00 AM CDT Plan of Treatment Upcoming Encounters Date Type Department Care Team (Late st Contact Info) Description 01/05/2025 10:30 AM CDT Office Visit [facility] Primary [facility] [place] [address] [address] [place] [address] [place] [phone] Alison Ramos MD [address] [place] [phone] Health Maintenance Due Date Last Done Comments DIABETES ANNUAL FOOT EXAM 1960 DIABETES ANNUAL RETINAL EXAM 1960 DIABETES MICROALBUMIN ANNUAL SCREEN 1960 ZOSTER VACCINE (1 of 2) 1992 OSTEOPOROSIS SCREENING 12/25/2007 KHE uACR (Auto Order) 03/23/2024 [place] Preventative Visit/Annual Wellness Visit 03/23/2024 INFLUENZA VACCINE (#1) 2024 , 01/05/2023, 12/26/2021, Additional history exists COVID-19 Vaccine (3 - 2024-2 6 season) 2024 06/26/2020, 05/29/2020 DIABETES HBA1C Q 6 MONTHS 02/09/2025 08/09/2024 DIABETES: A1C (Auto Order) 08/09/2025 08/09/2024 LDL CHOLESTEROL ANNUAL 08/09/2025 08/09/2024 DTAP/TDAP/TD VACCINES (3 - T d or Tdap) 05/11/2029 05/11/2019, 12/11/2018 RSV VACCINE (60+ or ) Completed 02/03/2023 PNEUMOCOCCAL VACCINE 50+ YEARS Completed 03/03/2023 , 12/31/2017 KHE eGFR (Auto Order) Completed 12/06/2024 , 11/14/2024, 10/18/2024, Additional history exists Medical Devices Implanted Type Area [employer]undromat Manager Device Identifier Shelf Expiration Date Model / Serial / Lot Clip Endo Resolution 360 Ultra 2.8mm 235cm [id number] - [id number] Implanted:Qty: 1 on 07/18/2024 by Rodney Bright MD at [facility] Clip N/A: Stomach [id number] GOMEZ [id number] 03/29/2027 [id number] / / [id number] Procedures Procedure Name Priority Date/Time Associated Diagnosis Comments BASIC METABOLIC PANEL Routine 12/06/2024 11:45 AM CDT Anemia, unspecified type Atherosclerosis of [place] coronary artery of [place] heart without angina pectoris IRON, TIBC, AND PERCENT SATURATION Routine 12/06/2024 11:45 AM CDT Anemia, unspecified type Atherosclerosis of [place] coronary artery of [place] heart without angina pectoris CT ABDOMEN PELVIS WO CONTRAST Stat 11/14/2024 [...] WITH DIFFERENTIAL Stat 10/18/2024 2:20 PM CDT LIPID PANEL Routine 08/09/2024 8:28 AM CDT HEMOGLOBIN A1C Routine 08/09/2024 8:27 AM CDT from Last 3 Months or Most Recently Relevant to Health Maintenance Results * (ABNORMAL) IRON, TIBC, AND PERCENT SATURATION (12/06/2024 11:45 AM CDT) IRON 46(L) 50 - 170 ug/dL 12/06/2024 4:02 PM CDT [facility] [place] TIBC 371 250 - 450 ug/dL 12/06/2024 4:02 PM CDT [facility] [place] IRON % SATURATION 12(L) 14 - 33 % 12/06/2024 4:02 PM CDT [facility] [place] Blood Venipuncture / Unknown 12/06/2024 11:45 AM CDT 12/06/2024 3:01 PM CDT Alison Ramos MD CHEMISTRY ORDERABLES F inal Result [facility] [place] [id number] [address] [facility] [place] [address] * BASIC METABOLIC PANEL (12/06/2024 11:45 AM CDT) SODIUM 136 136 - 145 mmol/L 12/06/2024 3:57 PM CDT [facility] [place] POTASSIUM 4.8 3.2 - 4.9 mmol/L 12/06/2024 3:57 PM CDT [facility] [place] CHLORIDE 101 98 - 107 mmol/L 12/06/2024 3:57 PM CDT [facility] LABORATORY [facility] [place] CO2 28 22 - 29 mmol/L 12/06/2024 3:57 PM CDT [facility] [employer] [facility] [place] CALCIUM 9.4 8.4 - 10.5 mg/dL 12/06/2024 3:57 PM CDT [facility] LABORATORY [facility] [place] BUN 20 6 - 24 mg/dL 12/06/2024 3:57 PM CDT [facility] LABORATORY [facility] [place] CREATININE 1.15 0.50 - 1.20 mg/dL 12/06/2024 3:57 PM T [facility]ORY [facility] [place] Comment:The GFR result is no t clinically significant on patients <18 or >70 years of age. GLUCOSE 97 70 - 115 mg/dL 12/06/2024 3:57 PM T [facility] [employer] [facility] [place] GFR 48 mL/min/1.7 3 sq meter 12/06/2024 3:57 PM T [facility] [employer] [facility] [place] Comment:eGFR calculated with 2020 CKD-EPI equation. Vegetarian diet, extremely high or low muscle mass, and may affect results. Cystatin C with Glomerular Filtration Rate is a suitable alternative for these patients. ANION GAP 7 7 - 16 mmol/L 12/06/2024 3:57 PM CDT [facility] [employer] [facility] [place] Blood Venipuncture / Unknown 12/06/2024 11:45 AM CDT 12/06/2024 3:01 PM CDT Alison Ramos MD CHEMISTRY ORDERABLES F inal Result [facility] [employer] [facility] [place] [id number] [address] [facility] [place] [address] * CT ABDOMEN PELVIS WO CONTRAST (11/14/2024 [...] to Dark Yellow 11/14/2024 7:55 PM CDT [facility] CLARITY UA Clear Clear 11/14/2024 7:55 PM CDT [facility] SPECIFIC GRAVITY UA 1.010 1.003 - 1.035 11/14/2024 7:55 PM CDT [facility] PH UA 5.5 5.0 - 8.0 11/14/2024 7:55 PM CDT [facility] LEUKOCYTE ESTERASE UA Negative Negative 11/14/2024 7:55 PM CDT [facility] NITRITE UA Negative Negative 11/14/2024 7:55 PM CDT [facility] PROTEIN UA Negative Negative 11/14/2024 7:55 PM CDT [facility] GLUCOSE UA 3+(A) Negative 11/14/2024 7:55 PM CDT [facility] KETONES UA Negative Negative 11/14/2024 7:55 [facility] UA 0.2 <2.0 mg/dL 7:55 PM CDT [facility] BILIRUBIN UA Negative Negative 11/14/2024 7:55 PM CDT [facility] BLOOD UA Negative Negative 11/14/2024 7:55 PM CDT [facility] Urine URINE SPECIMEN OBTAINED BY CLEAN CATCH PROCEDURE / Unknown Collection / Unknown 11/14/2024 7:05 PM CDT 11/14/2024 7:52 PM CDT Kvng Nolan MD URINE ORDERABLES Final R esult Performing Organization Address City/[facility]/ZIP Co de Phone Number [facility] CLIA # [id number] [address] [place] [address] [phone] * MANUAL DIFFERENTIAL (11/14/2024 6:42 PM CDT) PLATELET EST. Consistent w Count 11/14/2024 7:42 PM CDT [facility] ANISOCYTOSIS 1+ /hpf 11/14/2024 7:42 PM CDT [facility] MICROCYTES 1+ /hpf 11/14/2024 7:42 PM CDT [facility] HYPOCHROMIA 1+ /hpf 11/14/2024 7:42 PM CDT [facility] Blood Collection / Unknown 11/14/2024 6:42 PM CDT 11/14/2024 7:33 PM CDT us Kvng Nolan MD HEMATOLOGY ORDERABLES CO M Final Result Performing Organization Address [facility] Co de Phone Number [facility] CLIA # [id number] [address] [place] [address] * LACTIC ACID (11/14/2024 6:42 PM CDT) LACTIC ACID 1.4 <=2.0 mmol/L 11/14/2024 7:46 PM CDT [facility] Blood BLOOD SPECIMEN / Unknown Collection / Unknown 11/14/2024 6:42 PM CDT 11/14/2024 7:33 PM CDT us Kvng Nolan MD CHEMISTRY ORDERABLES Fin al Result [facility] CLIA # [id number] [address] [place] [address] * (ABNORMAL) CBC WITH DIFFERENTIAL (11/14/2024 6:42 PM CDT) Only the most recent of2 resultswithin the time period is included. WBC 7.1 4.0 - 10.0 K/uL 11/14/2024 7:[address] [facility] RBC 4.15 3.93 - 5.22 M/uL 11/14/2024 7:[address] [facility] HEMOGLOBIN 8.9(L) 11.2 - 15.7 g/dL 11/14/2024 7:[address] [facility] HEMATOCRIT 29.9(L) 34.1 - 44.9 % 11/14/2024 7:[address] [facility] MCV 72.0(L) 79.4 - 94.8 fL 11/14/2024 7:[address] [facility] MCH 21.4(L) 25.6 - 32.2 pg 11/14/2024 7:[address] [facility] MCHC 29.8(L) 32.2 - 35.5 g/dL 11/14/2024 7:[address] [facility] RDW 20.2(H) 11.0 - 14.5 % 11/14/2024 7:[address] [facility] RDW-STDEV 52.0 36.9 - 56.9 fL 11/14/2024 7:[address] [facility] PLATELETS 237 163 - 337 K/uL 11/14/2024 7:[address] [facility] MPV 9.6(L) 10.0 - 14.8 fL 11/14/2024 7:[address] [facility] NEUTROPHILS 67 34 - 71 % 11/14/2024 7:42 PM CDT [facility] LYMPHOCYTES 14(L) 19 - 52 % 11/14/2024 7:[address] [facility] MONOCYTES 11 5 - 13 % 11/14/2024 7:[address] [facility] EOSINOPHILS 8(H) 1 - 6 % 11/14/2024 7:[address] [facility] BASOPHILS 1 0 - 1 % 11/14/2024 7:[address] [facility] IMMATURE GRANULOCYTES 0 % 11/14/2024 7:42 PM T [facility] NEUTROPHIL ABSOLUTE 4.71 1.56 - 6.13 K/uL 11/14/2024 7:[address] [facility] LYMPHOCYTE ABSOLUTE 0.97(L) 1.20 - 3.40 K/uL 11/14/2024 7:[address] [facility] MONOCYTE ABSOLUTE 0.77(H) 0.24 - 0.36 K/uL 11/14/2024 7:[address] [facility] EOSINOPHIL ABSOLUTE 0.53(H) 0.04 - 0.36 K/uL 11/14/2024 7:[address] [facility] BASOPHILS ABSOLUTE 0.06 0.01 - 0.08 K/uL 11/14/2024 7:[address] [facility] IMMATURE GRANULOCYTES ABSOLUTE 0.02 K/uL 11/14/2024 7:[address] [facility] Blood Collection / Unknown 11/14/2024 6:42 PM CDT 11/14/2024 7:33 PM CDT us Kvng Nolan MD HEMATOLOGY ORDERABLES Fi nal Result [id number] [address] [place] [address] * LIPASE (11/14/2024 6:42 PM CDT) LIPASE 51 13 - 60 U/L 11/14/2024 7:50 PM CDT [facility] Blood Collection / Unknown 11/14/2024 6:42 PM CDT 11/14/2024 7:33 PM CDT us Kvng Nolan MD CHEMISTRY ORDERABLES Fin al Result [facility] CLIA # [id number] [address] [place] [address] * (ABNORMAL) COMPREHENSIVE METABOLIC PANEL (11/14/2024 6:42 PM CDT) Only the most recent of2 resultswithin the time period is included. SODIUM 135(L) 136 - 145 mmol/L 11/14/2024 7:[address] [facility] POTASSIUM 4.0 3.5 - 5.1 mmol/L 11/14/2024 7:[address] [facility] CHLORIDE 99 98 - 107 mmol/L 11/14/2024 7:[address] [facility] CO2 26 22 - 29 mmol/L 11/14/2024 7:[address] [facility] CALCIUM 10.2 8.8 - 10.2 mg/dL 11/14/2024 7:[address] [facility] BUN 12 8 - 23 mg/dL 11/14/2024 7:[address] [facility] CREATININE 1.08(H) 0.51 - 0.95 mg/dL 11/14/2024 7:[address] [facility] Comment:The GFR result is no t clinically significant on patients <18 or >70 years of age. GLUCOSE 80 74 - 99 mg/dL 11/14/2024 7:[address] [facility] TOTAL PROTEIN 7.2 6.6 - 8.7 g/dL 11/14/2024 7:[address] [facility] ALBUMIN 4.3 3.5 - 5.2 g/dL 11/14/2024 7:[address] [facility] BILIRUBIN TOTAL 0.4 0.0 - 1.2 mg/dL 11/14/2024 7:50 PM CDT [facility] ALKALINE PHOSPHATASE 79 35 - 104 U/L 11/14/2024 7:50 PM CDT [facility] AST 25 0 - 35 U/L 11/14/2024 7:50 PM CDT [facility] ALT 9 0 - 35 U/L 11/14/2024 7:50 PM CDT [facility] GFR 52 mL/min/1.7 3 sq meter 11/14/2024 7:50 PM CDT [facility] Comment:eGFR calculated with 2020 CKD-EPI equation. Vegetarian diet, extremely high or low muscle mass, and may affect results. Cystatin C with Glomerular Filtration Rate is a suitable alternative for these patients. ANION GAP 10 5 - 20 mmol/L 11/14/2024 7:50 PM CDT [facility] Blood Collection / Unknown 11/14/2024 6:42 PM CDT 11/14/2024 7:33 PM CDT us Kvng Nolan MD CHEMISTRY ORDERABLES Fin al Result Performing Organization Address City/[facility]/ZIP Co de Phone Number [facility] CLIA # [id number] [address] [place] [address] [phone] * OCCULT BLOOD GUAIAC DIAGNOSTIC (10/18/2024 2:36 PM CDT) OCCULT BLOOD, STOOL Negative Negative 10/18/2024 2:59 PM CDT [facility] Stool STOOL SPECIMEN / Unknown Collection / Unknown 10/18/2024 2:36 PM CDT 10/18/2024 2:58 PM CDT us Penny Brambila NET MVC DEVELOPER BODY FLUIDS AND STOOLS Neda l Result Performing Organization Address City/[facility]/ZIP Co de Phone Number [facility] CLIA # [id number] [address] [place] [address] [phone] * PTT (10/18/2024 2:20 PM CDT) PTT 30.9 25.1 - 35.4 seconds 10/18/2024 2:43 PM CDT [facility] Blood BLOOD SPECIMEN / Unknown Collection / Unknown 10/18/2024 2:20 PM CDT 10/18/2024 2:28 PM CDT [facility] HEMATOLOGY ORDERABLES Final Result Performing Organization Address [facility] Co ri Phone Number [facility] CLIA # [id number] [address] [place] [address] * (ABNORMAL) PROTIME-INR (10/18/2024 2:20 PM CDT) PROTIME 14.4(H) 12.1 - 14.3 Seconds 10/18/2024 2:43 PM CDT [facility] INR 1.1 0.9 - 1.1 10/18/2024 2:43 PM CDT [facility] Blood BLOOD SPECIMEN / Unknown Collection / Unknown 10/18/2024 2:20 PM CDT 10/18/2024 2:28 PM CDT [facility] HEMATOLOGY ORDERABLES Final Result Performing Organization Address [facility] de Phone Number [facility] CLIA # [id number] [address] [place] [phone] * TYPE AND SCREEN (10/18/2024 2:20 PM CDT) ABO/RH TYPE O NEG 10/18/2024 2:59 PM CDT [facility] ANTIBODY SCREEN Negative 10/18/2024 2:59 PM CDT [facility] Blood BLOOD SPECIMEN / Unknown Collection / Unknown 10/18/2024 2:20 PM CDT 10/18/2024 2:52 PM CDT [facility] BLOOD BANK ORDERABLES Final Result [facility] CLIA # [id number] [address] [facility] [address] [place] [address] * LIPID PANEL (08/09/2024 8:28 AM CDT) ABSTRACTED CHOLESTEROL 183 [facility] ABSTRACTED TRIGLYCERIDE 169 [facility] AB[facility] HDL 72 [facility] ABSTRACTED LDL CALCULATED 77 [facility] Blood us Abstract Provider CHEMISTRY ORDERABLES Edited Re sult - Final [facility] * HEMOGLOBIN A1C (08/09/2024 8:27 AM CDT) ABSTRACTED HGB A1C 5.6 % [facility] Blood us Abstract Provider CHEMISTRY ORDERABLES Edited Re sult - Final [facility] from Last 3 Months or Most Recently Relevant to Health Maintenance Insurance [place] [facility] [place] [facility]INTERNAL) [facility] RX INFOCROSSING Medicaid RX AETNA Medicare Part D Advance Directives For more information, please contact: [phone] * Default Full Code - Needs Discussion (Latest Code Status on File) Date Activated Date Inactivated Comments 07/18/2024 4:04 AM 07/20/2024 4:18 PM Care Teams Last Sawyer Relationship Specialty Start Date End Date Alison Ramos MD [address] [place] [address] [place] [phone] PCP - General Internal Medicine 07/21/24
--- OUTSIDE RECORDS SUMMARY | 2024-12-07 14:03 | XMS_ITS | Encounter Summary ---
Author Organization [facility] Address 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 Gender Identity Not on file Sexual Orientation Not on file documented as of this encounter Plan of Treatment Upcoming Encounters Date Type Department Care Team (Late st Contact Info) Description 01/05/2025 10:30 AM CDT Office Visit [facility] Primary Care [place] [address] [place] [address] [place] [phone] Alison Ramos MD [address] [place] [address] documented as of this encounter Procedures Procedure Name Priority Date/Time Associated Diagnosis Comments LIPID PANEL Routine 08/09/2024 8:28 AM CDT HEMOGLOBIN A1C Routine 08/09/2024 8:27 AM CDT documented in this encounter Results * LIPID PANEL (08/09/2024 8:28 AM CDT) ABSTRACTED CHOLESTEROL [facility] AB[facility] TRIGLYCERIDE [facility] AB[facility] HDL [facility] ABSTRA[facility] LDL CALCULATED 77 [facility] Blood us Abstract Provider CHEMISTRY ORDERABLES Edited Re [facility] Performing Organization Address City/[facility]/ZIP Co de Phone Number [facility] * HEMOGLOBIN A1C (08/09/2024 8:27 AM CDT) ABSTRACTED HGB A1C 5.6 % [facility] Blood us Abstract Provider CHEMISTRY ORDERABLES Edited Re sult - Final [facility] documented in this encounter Visit Diagnoses Not on filedocumented in this encounter Care Teams Pumper Gauger Relationship Specialty Start Date End Date Alison Ramos MD [address] [place] [address] [address] [place] [phone] PCP - General Internal Medicine 07/21/24 documented as of this encounter
--- OUTSIDE RECORDS SUMMARY | 2024-12-07 14:03 | XMS_ITS | Encounter Summary ---
Author Organization [facility] Address 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 Gender Identity Not on file Sexual Orientation Not on file documented as of this encounter Plan of Treatment Upcoming Encounters Date Type Department Care Team (Late st Contact Info) Description 01/05/2025 10:30 AM CDT Office Visit [facility] Primary Care [place] [address] [place] [address] [place] [phone] Alison Ramos MD [address] [facility] [address] [place] [phone] documented as of this encounter Procedures Procedure Name Priority Date/Time Associated Diagnosis Comments URINE CULTURE Routine 03/11/2024 3:00 PM SALES OUTFITTER Urinary tract infection, site not specified documented in this encounter Results * URINE CULTURE (03/11/2024 3:00 PM SALES OUTFITTER) CULTURE Polymicrobial growth consistent with normal urethral alda and/or colonizing bacteria 03/13/2024 7:27 AM SALES OUTFITTER [facility] Urine Collection / Unknown 03/11/2024 3:00 PM SALES OUTFITTER 03/11/2024 5:50 PM SALES OUTFITTER Alison Ramos MD MICROBIOLOGY - GENERAL ORDERABLES Final Result [facility] [id number] [address] [place] [phone] documented in this encounter Visit Diagnoses Diagnosis Urinary tract infection, site not specified documented in this encounter Additional Health Concerns Infection Onset Date Last Indicated Resolved Time R/O COVID-19 06/17/2024 06/17/2024 06/17/2024 9:17 AM CDT R/O COVID-19 08/26/2024 08/26/2024 08/26/2024 10:2 7 AM CDT documented as of this encounter Care Teams Staff Physician Relationship Specialty Start Date End Date Alison Ramos MD [address] [place] [address] [address] [place] [address] PCP - General Internal Medicine 07/21/24 documented as of this encounter
--- OUTSIDE RECORDS SUMMARY | 2024-12-07 14:03 | XMS_ITS | Encounter Summary ---
Author Organization [facility] Address 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 Gender Identity Not on file Sexual Orientation Not on file documented as of this encounter Plan of Treatment Upcoming Encounters Date Type Department Care Team (Late st Contact Info) Description 01/05/2025 10:30 AM CDT Office Visit [facility] Primary Care [place] [address] [place] [address] Alison Ramos MD [address] [place] [address] [place] [phone] documented as of this encounter Visit Diagnoses Not on filedocumented in this encounter Care Teams Centrifugal Extractor Operator Relationship Specialty Start Date End Date Alison Ramos MD [address] [place] [address] [address] [place] [address] PCP - General Internal Medicine 07/21/24 documented as of this encounter
--- NOTE | 2024-12-07 14:30 | XR_ITS ---
WS: [id number] XR chest 1V portable [id number] REASON FOR EXAM: chest pain, weakness, recent covid, recent cath for mi FINDINGS: The examination is unchanged compared to the previous study of 12/01/2024. Moderate tortuosity and ectasia of the thoracic aorta. Moderate cardiomegaly. Mild central pulmonary venous congestion. No acute pulmonary parenchymal or pleural abnormality. Moderate degenerative spondylosis in the thoracic spine. XR/XR chest 1V portable [id number] IMPRESSION: Stable chest without acute abnormality. Cardiomegaly with mild pulmonary venous hypertension.
--- NOTE | 2024-12-07 14:30 | ECG_ITS ---
[employer] Test Date: 2024-12-07 Pat Name: Arielle Vences Department: Room: Gender: Female Tightening Machine Operator: : [id number] Requested By: Jameel Chowdhury Order Number: [id number] Britton MD: Vidal Christopher M.D. Measurements Intervals [place] Rate: 56 P: 0 KS: 0 QRS: 94 QRSD: 86 T: -39 QT: 442 QTc: 429 Interpretive Statements ATRIAL FIBRILLATION WITH SLOW VENTRICULAR RESPONSE BORDERLINE RIGHT AXIS DEVIATION [QRS AXIS > 90] LOW QRS VOLTAGE IN EXTREMITY LEADS [QRS DEFLECTION < 0.5 mV IN LIMB LEADS] SEPTAL MYOCARDIAL INFARCTION , PROBABLY OLD [40+ ms Q WAVE IN V1/V2] MODERATE T-WAVE ABNORMALITY, CONSIDER INFERIOR ISCHEMIA [-0.1+ mV T-WAVE IN II/aVF] Compared to ECG 12/01/2024 22:42:08 Low QRS voltage now present T-wave abnormality now present Possible ischemia now present Left anterior fascicular block no longer present Myocardial infarct finding still present Electronically Signed On 12-07-2024 23:29:30 CDT by Vidal Christopher M.D. [email or web address]
[2024-12-07 15:02] LABS: Glucose Urine UA 2+ (Normal); Nitrate Urine Negative (Negative); Specific Gravity, Urine 1.009 (1.005-1.030)
[2024-12-07 15:04] LABS: Add Urine Microscopic? YES
--- NOTE | 2024-12-07 15:09 | W.ED.WEAKNES ---
HPI - Weakness General: Chief complaint: Weakness Stated complaint: Generalized weakness Time Seen by Provider: 12/07/24 13:55 History of Present Illness: Patient presenting to the emergency department with persistent weakness and intermittent chest discomfort since recent discharge from the hospital for volume overload and COVID, this is following a previous hospitalization at the beginning of this month for concern for STEMI in the setting of A-fib underwent catheterization had distal occlusions not amenable to stenting and was treated medically. She reports her symptoms never fully improved after the most recent discharge which was 4 days ago, she reports 3 to 30 minutes worth of chest pain earlier today but is currently not experiencing any chest pain, she denies leg pain or swelling, denies fever, endorses chronic cough which did not improve from the recent hospitalization Related Data Home Medications ?Medication ?Instructions ?Recorded ?Confirmed gabapentin 600 mg tablet 600 mg PO TID 04/06/19 12/07/24 levothyroxine 88 mcg tablet 88 mcg PO QAM 04/06/19 12/07/24 loratadine 10 mg tablet 10 mg PO DAILY Allergy Symptoms 04/06/19 12/07/24 mirabegron 50 mg tablet,extended 50 mg PO QAM 04/06/19 12/07/24 release 24 hr (Myrbetriq) cholecalciferol (vitamin D3) 1,250 50,000 unit PO Q7D 05/11/19 12/07/24 mcg (50,000 unit) capsule trazodone 50 mg tablet 25 - 50 mg PO BEDTIME PRN Sleep 05/11/19 12/07/24 montelukast 10 mg tablet 10 mg PO QAM 01/14/22 12/07/24 donepezil 10 mg tablet 10 mg PO QAM 11/08/22 12/07/24 amlodipine 10 mg tablet 10 mg PO DAILY 07/08/23 12/07/24 digoxin 125 mcg (0.125 mg) tablet 125 mcg PO QAM 07/08/23 12/07/24 empagliflozin 10 mg tablet 10 mg PO QAM 07/08/23 12/07/24 (Jardiance) potassium chloride 20 mEq 20 meq PO DAILY 07/08/23 12/07/24 tablet,extended release pravastatin 40 mg tablet 40 mg PO DAILY 07/08/23 12/07/24 tizanidine 2 mg tablet 2 mg PO BID 07/08/23 12/07/24 duloxetine 60 mg capsule,delayed 60 mg PO QAM 11/21/24 12/07/24 release nystatin 100,000 unit/gram topical 1 applic topical TID 11/21/24 12/07/24 cream pantoprazole 40 mg tablet,delayed 40 mg PO Q12H 11/21/24 12/07/24 release hydrocodone 10 mg-acetaminophen 1 tab PO TID PRN Pain 12/01/24 12/07/24 325 mg tablet lisinopril 10 mg tablet 10 mg PO BID 12/01/24 12/07/24 dexamethasone 2 mg tablet 2 mg PO DAILY 12/07/24 12/07/24 Previous Rx's ?Medication ?Instructions ?Recorded apixaban 5 mg tablet (Eliquis) 5 mg PO BID #60 tabs 11/25/24 atorvastatin 40 mg tablet 20 mg (1/2 x 40 mg) PO BEDTIME #30 11/25/24 tabs furosemide 20 mg tablet 20 mg PO QAM PRN weight gain of 5 11/25/24 lbs #10 tabs metoprolol tartrate 25 mg tablet 25 mg PO BID@0900,2100 #60 tabs 11/25/24 sucralfate 100 mg/mL oral 1 g (10 mL) PO AC&BEDTIME 4 weeks 11/25/24 suspension #1,000 mL clopidogrel 75 mg tablet See Rx Instructions .Route 12/02/24 .COMPLEX #30 tabs acetaminophen 325 mg tablet 650 mg (2 x 325 mg) PO Q4H PRN 12/03/24 Mild Pain Or Increase Temp #1 tab albuterol sulfate 90 mcg/actuation 2 inh inhalation Q4H PRN shortness 12/03/24 aerosol inhaler (Ventolin HFA) of breath or wheezing #8.5 grams dexamethasone 2 mg tablet 2 mg PO DAILY #3 tabs 12/03/24 Allergies Allergy/AdvReac Type Severity Reaction Status Date / Time No Known Allergies Allergy Verified 11/28/24 11:21 [facility] PFSH: Medical History Severe mitral regurgitation Anxiety and depression Upper GI bleed Dyspnea on exertion Peripheral edema Lymphedema Venous stasis dermatitis Hx of fracture of ankle Arthritis DJD (degenerative joint disease) Abdominal hernia Sliding hiatal hernia Hypothyroidism Insomnia Gastroenteritis DDD (degenerative disc disease) Restless legs Pulmonary nodule Diverticulitis Hx of fracture of tibia Dementia Age related osteoporosis Mixed incontinence History of colon polyps COVID Atrial fibrillation with RVR COPD (chronic obstructive pulmonary disease) Anal fissure Chronic back pain Lymphedema of both lower extremities Mixed hyperlipidemia Chronic systolic (congestive) heart failure Essential hypertension Surgical History History of amputation of toe Hx of blepharoplasty History of bladder surgery History of colonoscopy years ago History of hysterectomy Family History Sister Stroke CAD (coronary artery disease) [place] @ 75 Hypertension Brother Cancer Father Cancer Social History Smoking and tobacco/nicotine status: former use of tobacco/nicotine Second hand smoke exposure: No Alcohol intake: never Substance/Drug Use: never Adopted: No Caregiver/support person: No Lives independently: Yes Household members: spouse Housing: House Marital status: service: No Current occupational status: retired Do you think of yourself as: Straight/Heterosexual Current gender identity: Female Physical Exam Narrative: EXAM NARRATIVE: Gen: A&Ox4, no acute distress, nontoxic appearing HEENT: Normocephalic, atraumatic, no scleral icterus, external ears normal, dry mucous membranes Neck: Supple, full range of motion, no observable masses Lungs: No Respiratory distress, Lungs clear to auscultation bilaterally no rales, rhonchi, wheezing CV: irregular rate mildly bradycardic in 50's, no murmur, no pitting edema to lower extremities bilaterally Abdomen: Soft, nondistended, nontender to palpation MSK: No joint swelling, FROM all 4 extremities Skin: No rashes, petechiae, lesions. Normal color per patient. Neuro: Alert and oriented, no slurred speech, sensation and strength grossly intact all 4 extremities Psych: Appropriate for situation. Course Reevaluation(s): Reevaluation #1: Patient reassessed at this time, she reports her symptoms are markedly improved, she feels better and would like to go home. Her workup shows an elevated troponin however it is significantly downtrending from her last admission and was downtrending on repeat, her EKG showed A-fib rate controlled, her chest x-ray showed mild small bilateral pleural effusions but no significant or severe volume overload, she is currently off oxygen and saturating about 92 to 93% on room air with no dyspnea and is able to lie flat without orthopnea. At this time she appears stable for discharge, I did patient financial counselor her on the importance of taking her furosemide as well as speaking to her family member at the bedside who will make sure she takes it. I recommend she follow-up with her PCP and musical instrument maker or repairer or return to the ER if her symptoms worsen Time: 17:35 Vital Signs: Vital signs: Vital Signs Temperature 98.1 F 12/07/24 13:50 Pulse Rate 67 12/07/24 16:58 Respiratory Rate 17 12/07/24 16:58 Blood Pressure 102/97 12/07/24 16:58 Pulse Oximetry 95 12/07/24 16:58 Oxygen Delivery Me thod Nasal Cannula 12/07/24 16:17 Oxygen Flow Rate 4 12/07/24 16:17 MDM - Weakness Medical Decision Making 83-year-old female with medical history significant for hypertension, atrial fibrillation, hyperlipidemia, CHF/COPD, previous admission for possible STEMI found to have a distal left circumflex lesion that was not amenable to stenting and was treated medically, she also has known's significant mitral regurgitation, she was subsequently admitted again shortly after the catheterization for a combination of congestive heart failure and COVID, she was treated with a few days of remdesivir but did not complete course for this, she was diuresed with improvement in her breathing, she is now presenting for nonspecific weakness, low blood pressure, persistent cough, and intermittent episodic chest pain which is currently resolved. On exam she appears to be in slow A-fib in the 50s which would not likely affect her perfusion, she is mildly hypotensive in the 98/57 range with maintenance of a MAP over 65, she does appear hypovolemic on exam without signs of significant peripheral edema or rales to lungs, suspect she is volume depleted at this time likely from her recent diuresis and admission, plan for small volume IV fluid bolus, labs including check for anemia given history of GI bleed requiring transfusion in the past and being on blood thinners, evaluation for occult infection pulmonary versus urine, reassess for disposition. Lab Data 12/07/24 15:00 12/07/24 15:00 Radiology Impressions Chest X-Ray 12/07/24 14:30 IMPRESSION: Stable chest without acute abnormality. Cardiomegaly with mild pulmonary venous hypertension. Chest CTA 12/07/24 16:20 IMPRESSION: 1. No evidence of pulmonary embolism. 2. Study not optimized for evaluation of the thoracic aorta. Fusiform aneurysmal dilatation of the ascending thoracic aorta which measures up to 4.5 cm in diameter. No secondary signs of dissection. 3. Small bilateral pleural effusions. 4. Moderate cardiomegaly. Interlobular septal thickening suggestive of fluid overload and reflux of contrast into the IVC/hepatic veins suggestive of right heart dysfunction. Laboratory Results WBC 7.34 10^3/uL (3.29-11.43) 12/07/24 15:00 RBC 4.46 10^6/uL (3.85-5.65) 12/07/24 15:00 Hgb 10.50 g/dL (11.27-16.99) L 12/07/24 15:00 Hct 35.3 % (36-47) L 12/07/24 15:00 MCV 79.1 fl (85-98) L 12/07/24 15:00 MCH 23.5 pg (27-33) L 12/07/24 15:00 MCHC 29.7 g/dL (30-55) L 12/07/24 15:00 RDW 23.0 % (12.1-15.1) H 12/07/24 15:00 Plt Count 313 10^3/cmm (157-399) 12/07/24 15:00 MPV 9.6 fL (7.4-10.4) 12/07/24 15:00 Neut % (Auto) 67.2 % 12/07/24 15:00 Lymph % (Auto) 18.8 % 12/07/24 15:00 [place] % (Auto) 9.9 % 12/07/24 15:00 Eos % (Auto) 3.3 % 12/07/24 15:00 Baso % (Auto) 0.4 % 12/07/24 15:00 Neut # (Auto) 4.93 10^3/uL (1.8-7.7) 12/07/24 15:00 Lymph # (Auto) 1.4 10^3/uL (0.8-4.8) 12/07/24 15:00 [place] # (Auto) 0.7 10^3/uL (0.2-0.9) 12/07/24 15:00 Eos # (Auto) 0.2 10^3/uL (0.0-0.8) 12/07/24 15:00 Baso # (Auto) 0.0 10^3/uL (0.0-0.1) 12/07/24 15:00 Nucleated RBC % (auto) 0 % 12/07/24 15:00 Nucleated RBCs # 0.0 /100WBC 12/07/24 15:00 PT 16.10 SECONDS (12.1-14.9) H 12/07/24 15:00 INR 1.21 (0.8-1.2) H 12/07/24 15:00 APTT 32.6 SECONDS (23.9-36.7) 12/07/24 15:00 Sodium 137 mmol/L (136-145) 12/07/24 15:00 Potassium 4.6 mmol/L (3.5-5.1) 12/07/24 15:00 Chloride 98 mmol/L (98-107) 12/07/24 15:00 Carbon Dioxide 29 mmol/L (22-29) 12/07/24 15:00 Anion Gap 14.6 (5-19) 12/07/24 15:00 BUN 14 mg/dL (8-23) 12/07/24 15:00 Creatinine 1.1 mg/dL (0.5-0.9) H 12/07/24 15:00 GFR Calculation Not Reportable 12/07/24 15:00 Glucose 92 mg/dL (65-115) 12/07/24 15:00 Calculated Osmolality 284 mOsm/kg (285-295) L 12/07/24 15:00 Lactic Acid 1.4 mmol/L (0.5-2.2) 12/07/24 15:00 Calcium 9.2 mg/dL (8.5-10.5) 12/07/24 15:00 Total Bilirubin 0.9 mg/dL (0.15-1.2) 12/07/24 15:00 AST 16 U/L (0-32) 12/07/24 15:00 ALT 6 U/L (0-33) 12/07/24 15:00 Alkaline Phosphatase 74 U/L (35-105) 12/07/24 15:00 Creatine Kinase 41 U/L (26-192) 12/07/24 15:00 Troponin T Baseline 127 ng/L (0-10) H* 12/07/24 15:00 Troponin T 120 Minute 107.9 ng/L (0-10) H 12/07/24 16:54 Delta Troponin T -19.1 ABS# (0-10) L 12/07/24 16:54 NT-Pro-B Natriuret Pep 4120 pg/mL (0-450) H 12/07/24 15:00 Total Protein 6.2 g/dL (6.6-8.7) L 12/07/24 15:00 Albumin 3.7 g/dL (3.5-5.2) 12/07/24 15:00 Globulin 2.5 g/dL (1.3-4.6) 12/07/24 15:00 Urine Color Yellow (Yellow) 12/07/24 14:38 Urine Appearance Clear (CLEAR) 12/07/24 14:38 Urine pH 7.0 (5-7) 12/07/24 14:38 Ur Specific [place] 1.009 (1.005-1.030) 12/07/24 14:38 Urine Protein Negative (Negative) 12/07/24 14:38 Urine Glucose (UA) 2+ (Normal) H 12/07/24 14:38 Urine Ketones Negative (Negative) 12/07/24 14:38 Urine Blood Negative (Negative) 12/07/24 14:38 Urine Nitrate Negative (Negative) 12/07/24 14:38 Urine Bilirubin Negative (Negative) 12/07/24 14:38 Urine Urobilinogen 1.0 mg/dL (Negative) 12/07/24 14:38 Ur Leukocyte Esterase 1+ (Negative) A 12/07/24 14:38 Urine RBC 0-2 /hpf (0-2) 12/07/24 14:38 Urine WBC 0-5 /hpf (0-5) 12/07/24 14:38 Ur Squamous Epith Cells 0-5 /hpf (0-5) 12/07/24 14:38 Amorphous Sediment Not Reportable 12/07/24 14:38 Urine Bacteria Trace /hpf (NONE) 12/07/24 14:38 Hyaline Casts 0.40 /lpf 12/07/24 14:38 Blood Type O Negative 12/07/24 15:00 Rho(D) Type Rh negative 12/07/24 15:00 Antibody Screen Negative 12/07/24 15:00 All radiology interpretation(s) finalized by discharge ED provider radiology interpretation(s): CXR normal CTA with no pulmonary embolism, there is aneurysm of the thoracic aorta without evidence of dissection although not phased to assess for this I have low clinical concern for dissection, she does have evidence of mild hypervolemia with hepatojugular reflux to the IVC and mild small bilateral pleural effusions EKG Data EKG 1: I personally reviewed and interpreted this EKG as follows: EKG interpretation date: 12/07/24 EKG interpretation time: 13:54 Prior EKG tracings: available for review Interpretation: Atrial fibrillation at 56 bpm with slow ventricular response, borderline right axis deviation, no STEMI, QTc 434 ms, old septal OK suspected, poor R wave progression, nonspecific ST-T changes not significantly changed from comparison EKG performed on 12/01/2024 EKG 2: I personally reviewed and interpreted this EKG as follows: EKG interpretation date: 12/07/24 EKG interpretation time: 15:53 Prior EKG tracings: available for review Computer generated interpretation: Atrial fibrillation at 79 bpm, no STEMI, normal axis, QTc 415 ms Discharge Plan Discharge Patient Disposition: Home Clinical Impression: Weakness Condition: Stable Prescriptions: No Action levothyroxine 88 mcg tablet 88 mcg PO QAM gabapentin 600 mg tablet 600 mg PO TID loratadine 10 mg tablet 10 mg PO DAILY Myrbetriq 50 mg tablet extended release 24 hr 50 mg PO QAM clopidogrel 75 mg tablet See Rx Instructions .ROUTE .COMPLEX Qty: 30 0RF Dose Instruction: TAKE ONE TABLET BY MOUTH DAILY Rx Instructions: TAKE ONE TABLET BY MOUTH DAILY trazodone 50 mg Tablet 25 - 50 mg PO BEDTIME PRN (Reason: Sleep) cholecalciferol (vitamin D3) 1,250 mcg (50,000 unit) capsule 50,000 unit PO Q7D Rx Instructions: (ON SUNDAYS) tizanidine 2 mg tablet 2 mg PO BID pravastatin 40 mg tablet 40 mg PO DAILY amlodipine 10 mg tablet 10 mg PO DAILY Jardiance 10 mg tablet 10 mg PO QAM digoxin 125 mcg (0.125 mg) tablet 125 mcg PO QAM potassium chloride 20 mEq tablet extended release 20 meq PO DAILY montelukast 10 mg Tablet 10 mg PO QAM donepezil 10 mg tablet 10 mg PO QAM duloxetine 60 mg capsule,delayed release(DR/EC) 60 mg PO QAM pantoprazole 40 mg tablet,delayed release (DR/EC) 40 mg PO Q12H nystatin 100,000 unit/gram cream 1 applic topical TID atorvastatin 40 mg Tablet 20 mg PO BEDTIME Qty: 30 0RF sucralfate 100 mg/mL Suspension 1 g PO AC&BEDTIME 28 Days Qty: 1000 0RF metoprolol tartrate 25 mg Tablet 25 mg PO BID@0900,2100 Qty: 60 0RF Eliquis 5 mg tablet 5 mg PO BID Qty: 60 0RF furosemide 20 mg tablet 20 mg PO QAM PRN (Reason: weight gain of 5 lbs) Qty: 10 0RF hydrocodone-acetaminophen 10-325 mg tablet 1 tab PO TID PRN (Reason: Pain) lisinopril 10 mg tablet 10 mg PO BID acetaminophen 325 mg Tablet 650 mg PO Q4H PRN (Reason: Mild Pain Or Increase Temp) Qty: 1 0RF dexamethasone 2 mg tablet 2 mg PO DAILY Qty: 3 0RF albuterol sulfate [Ventolin HFA] 90 mcg/actuation HFA aerosol inhaler 2 inh inhalation Q4H PRN (Reason: shortness of breath or wheezing) Qty: 8.5 0RF dexamethasone 2 mg tablet 2 mg PO DAILY Discharge Orders: Discharge ED (Routine); Ordered 12/07/24 Ordered By: Jameel Chowdhury Referrals: Alison Ramos MD [Primary Care Provider, Internal Medicine] Patient Instructions: Heart Failure (DC), Weakness (ED), Patient Portal & [facility] Instructions, Ascending Thoracic Aortic Aneurysm (DC) Activity Restrictions/Additional Instructions: You were seen for weakness, your blood pressure was mildly decreased but improved with fluids, your workup shows that you are still suffering from some heart failure but that there is no evidence of an acute dangerous pathology to your heart or a blood clot in your lungs, your symptoms improved with this fluid and you now feel better. I recommend you follow-up with your primary care doctor to discuss your CT scan results as well as your musical instrument maker or repairer to discuss your diuretic regimen. In the meantime make sure you take your furosemide daily as prescribed, return to the ER if your symptoms worsen Print Language: Djiboutian Coding Level of Care Code ED Document Analyst for Juan F Mckinney
[2024-12-07 15:15] LABS: Hematocrit 35.3 % (36-47); Hemoglobin 10.50 g/dL (11.27-16.99); Mean Corpuscular HGB Conc 29.7 g/dL (30-55); Mean Corpuscular Hemoglobin 23.5 pg (27-33); Mean Corpuscular Volume 79.1 fl (85-98); Nucleated Red Blood Cells % 0 %; Platelet Count 313 10^3/cmm (157-399); Red Blood Count 4.46 10^6/uL (3.85-5.65); White Blood Count 7.34 10^3/uL (3.29-11.43)
[2024-12-07 15:24] VITALS: BP 93/60; PULSE 69; RESP 19; O2SAT 91
[2024-12-07 15:29] LABS: INR 1.21 (0.8-1.2); Prothrombin Time 16.10 SECONDS (12.1-14.9)
[2024-12-07 15:30] LABS: Partial Thromboplastin Time 32.6 SECONDS (23.9-36.7)
[2024-12-07 15:34] LABS: Lactic Sepsis W/Reflex 1.4 mmol/L (0.5-2.2)
[2024-12-07 15:37] LABS: Troponin(5th) Baseline 127 ng/L (0-10)
[2024-12-07 15:43] LABS: Alanine Aminotransferase 6 U/L (0-33); Albumin Level 3.7 g/dL (3.5-5.2); Alkaline Phosphatase 74 U/L (35-105); Anion Gap 14.6 (5-19); Aspartate Amino Transferase 16 U/L (0-32); Blood Urea Nitrogen 14 mg/dL (8-23); Calcium 9.2 mg/dL (8.5-10.5); Carbon Dioxide 29 mmol/L (22-29); Chloride 98 mmol/L (98-107); Creatinine Clr Calc Pharmacy 40.9115; Globulin 2.5 g/dL (1.3-4.6); Glucose 92 mg/dL (65-115); NT Pro B Type Natriuretic Pept 4120 pg/mL (0-450); Osmolality Calculated 284 mOsm/kg (285-295); Potassium 4.6 mmol/L (3.5-5.1); Sodium 137 mmol/L (136-145); Total Protein 6.2 g/dL (6.6-8.7)
--- NOTE | 2024-12-07 15:53 | ECG_ITS ---
[facility]: 2024-12-07 Pat Name: rAielle Vences Department: Room: Gender: Female Gi Technician: : 1940 Requested By: Jameel Chowdhury Order Number: [id number] Reba MD: Vidal Christopher M.D. Measurements Intervals [place] Rate: 79 P: 0 IN: 0 QRS: 57 QRSD: 71 T: -51 QT: 381 QTc: 437 Interpretive Statements ATRIAL FIBRILLATION LOW QRS VOLTAGE IN EXTREMITY LEADS [QRS DEFLECTION < 0.5 mV IN LIMB LEADS] ANTEROSEPTAL MYOCARDIAL INFARCTION , PROBABLY OLD [40+ ms Q WAVE IN V1-V4] Compared to ECG 12/07/2024 13:54:13 T-wave abnormality no longer present Possible ischemia no longer present Myocardial infarct finding still present Electronically Signed On 12-07-2024 23:40:08 CDT by Vidal Christopher M.D. [email or web address]
[2024-12-07 16:17] VITALS: BP 110/78; PULSE 96; RESP 29; O2SAT 88
--- NOTE | 2024-12-07 16:20 | CTR_ITS ---
PROCEDURE INFORMATION: Exam: CTA Chest With Contrast Exam date and time: 12/07/2024 4:33 PM Age: 83 years old Clinical indication: Shortness of breath; Prior surgery; Surgery date: <1 month; Surgery type: Cardiac cath ; Additional info: Hypoxia, weakness, R/O pe TECHNIQUE: Imaging protocol: Computed tomographic angiography of the chest with contrast. Exam focused on the arteries. 3D rendering (Not supervised by radiologist): MIP and/or 3D reconstructed images were created by the technologist. Radiation optimization: All CT scans at this facility use at least one of these dose optimization techniques: automated exposure control; mA and/or kV adjustment per patient size (includes targeted exams where dose is matched to clinical indication); or iterative reconstruction. Contrast material: OMNIPAQUE 350; Contrast volume: 100 ml; Contrast route: INTRAVENOUS (IV); COMPARISON: CT chest [facility] [id number] 11/10/2022 3:24 PM RADIATION DOSE METRICS: Total DLP (mGy-cm): 407.61 FINDINGS: Pulmonary arteries: No evidence of pulmonary embolism. Aorta: Study not optimized for evaluation of the thoracic aorta. Fusiform aneurysmal dilatation of the ascending thoracic aorta which measures up to 4.5 cm in diameter. No secondary signs of dissection. Veins: Reflux of contrast into the IVC and hepatic veins. Lungs: Mild interlobular septal thickening in the bilateral upper lobes. Pleural spaces: Small bilateral pleural effusions. Heart: Moderate cardiomegaly. No pericardial effusions. Lymph nodes: Shotty mediastinal lymph nodes. Spleen: Calcified granulomas in the spleen. Kidneys: Stable small fatty lesion in the upper pole of the right kidney likely angiomyolipoma measuring up to 10 mm. Bones/joints: Decreased osseous mineralization subjectively. no bony destructive lesions. No acute fracture. Soft tissues: Unremarkable. CT/CT angio chest PE protcl [id number] IMPRESSION: 1. No evidence of pulmonary embolism. 2. Study not optimized for evaluation of the thoracic aorta. Fusiform aneurysmal dilatation of the ascending thoracic aorta which measures up to 4.5 cm in diameter. No secondary signs of dissection. 3. Small bilateral pleural effusions. 4. Moderate cardiomegaly. Interlobular septal thickening suggestive of fluid overload and reflux of contrast into the IVC/hepatic veins suggestive of right heart dysfunction.
[2024-12-07] MEDS: iohexol 350 mg/mL 500 mL Btl (per mL) IV (16:39)
[2024-12-07 16:58] VITALS: BP 102/97; PULSE 67; RESP 17; O2SAT 95
[2024-12-07 17:29] LABS: Troponin 5 2HR 107.9 ng/L (0-10); Troponin 5 2HR Delta -19.1 ABS# (0-10)
[2024-12-07 17:36] VITALS: BP 136/67; PULSE 64; RESP 16; O2SAT 94
== END 2024-12-07 18:11 | disposition home or self-care (01) ==
PROVIDERS: Emergency Provider Student in an Organized Health Care Education/Training Program; PCP Internal Medicine
DX: R53.1 Weakness (principal); Z79.02 Long term (current) use of antithrombotics/antiplatelets; Z79.01 Long term (current) use of anticoagulants; Z87.891 Personal history of nicotine dependence; J44.9 Chronic obstructive pulmonary disease, unspecified; E78.2 Mixed hyperlipidemia; I11.0 Hypertensive heart disease with heart failure; I50.22 Chronic systolic (congestive) heart failure
CPT/HCPCS: 36415; 71045; 71275; 80053; 81001; 82550; 83605; 83880; 84484; 85025; 85610; 85730; 86850; 86900; 87040; 93005; 99285; J7040

== ENCOUNTER → 2025-01-10 12:22 | Outpatient (BNVA) | payer MEDICARE, MEDICAID, SELFPAY | PROVIDERS: PCP Internal Medicine; Visit Provider Nurse Practitioner Family | DX: I34.0 Nonrheumatic mitral (valve) insufficiency (principal); I48.91 Unspecified atrial fibrillation; I11.0 Hypertensive heart disease with heart failure; I50.32 Chronic diastolic (congestive) heart failure; I25.2 Old myocardial infarction; Z87.898 Personal history of other specified conditions; Z86.16 Personal history of COVID-19; Z79.01 Long term (current) use of anticoagulants | CPT/HCPCS: 99214 ==

== ENCOUNTER 2025-01-26 07:17 | Day surgery (SDC) | payer MEDICARE, MEDICAID, SELFPAY ==
[2025-01-26 07:34] VITALS: BP 140/77; PULSE 87; RESP 18; TEMP 36.2; O2SAT 98
--- NOTE | 2025-01-26 08:45 | PC.NURSE ---
HORACIO postponed at this time. Dr. Christopher to speak with refinery operator helper in [place] and then pt to be rescheduled if needed.
== END 2025-01-26 08:45 | disposition home or self-care (01) ==
PROVIDERS: PCP Internal Medicine; Visit Provider Internal Medicine Cardiovascular Disease
PROC: (CPT 93312; principal; 2025-01-26 08:00)
DX: I34.0 Nonrheumatic mitral (valve) insufficiency (principal); Z53.8 Procedure and treatment not carried out for other reasons
CPT/HCPCS: J2250; J2704; J3010; J9999

== ENCOUNTER 2025-02-23 22:44 | Emergency (ER) | payer MEDICARE, MEDICAID, SELFPAY ==
[2025-02-23 22:47] VITALS: BP 152/94; PULSE 88; RESP 20; TEMP 36.6; O2SAT 93; BMI 25.0
--- NOTE | 2025-02-23 22:50 | ECG_ITS ---
[facility] Date: 2025-02-23 Pat Name: Arielle Vences Department: Room: Gender: Female Systems Coordinator: : 1940 Requested By: Jameel Chowdhury Order Number: [id number] Britton MD: Vidal Christopher M.D. Measurements Intervals [place] Rate: 82 P: 0 IN: 0 QRS: -85 QRSD: 90 T: 11 QT: 401 QTc: 470 Interpretive Statements ATRIAL FIBRILLATION LEFT ANTERIOR FASCICULAR BLOCK [QRS AXIS <= -45, QR IN I, RS IN II] POSSIBLE ANTERIOR MYOCARDIAL INFARCTION , OF INDETERMINATE AGE [30 ms Q WAVE IN V3/V4, OR R < 0.2 mV IN V4] Compared to ECG 12/07/2024 15:53:55 Left anterior fascicular block now present Myocardial infarct finding still present Electronically Signed On 02-24-2025 18:45:27 ANALYST BUSINESS ANALYSIS by Vidal Christopher M.D. [email or web address]
--- OUTSIDE RECORDS SUMMARY | 2025-02-23 23:01 | XMS_ITS | Encounter Summary ---
Author Organization [facility] Address 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 [address] [facility] [address] [place] [address] 04/07/2025 10:00 AM MORTGAGE FIELD INSPECTOR Office Visit [facility] [place] [address] [address] [place] [address] Alison Ramos MD [address] [place] [address] 05/08/2025 9:30 AM MORTGAGE FIELD INSPECTOR Office Visit [facility] [place] [address] [place] [address] Alison Ramos MD [address] [place], [place] [phone] documented as of this encounter Procedures Procedure Name Priority Date/Time Associated Diagnosis Comments RHEUMATOID FACTOR Routine 12/31/2023 12: 00 AM CDT ROBERT SCREEN W/REFLEX Routine 12/31/2023 1 2:00 AM CDT documented in this encounter Results * RHEUMATOID FACTOR (12/31/2023 12:00 AM CDT) Pathologist [facility] RHEUMATOID FACTOR <13 <=30 IU/mL 12/31/2023 8:04 PM CDT [facility] Blood 12/31/2023 12/31/2023 4:2 2 PM CDT us Alison Ramos MD CHEMISTRY ORDERABLES F inal Result [facility] [id number] [address] [place] [address] * ROBERT SCREEN W/REFLEX (12/31/2023 12:00 AM CDT) Pathologist [facility] ROBERT SCREEN NEGATIVE NEGATIVE 01/05/2024 2:47 PM CDT [facility] Comment: ROBERT IFA is a first line [...] AC-0: Negative International Consensus on ROBERT Patterns (https://doi.org/10.1515/ozda-5235-5361) For additional information, please refer to http://education.Keldeal/faq/WXF630 (This link is being provided for informational/ educational purposes only.) Blood Collection / Unknown 12/31/2023 12/31/2023 4:22 PM CDT Narrative [facility] REFERENCE [facility] 01/05/2024 2:47 PM CDT Performing Organization Information: Site ID: [place] Name: [facility] [employer] Address: [address] [address] [place] [address] Director: Farrukh Montenegro MD us Alison Ramos MD CHEMISTRY ORDERABLES F inal Result Performing Organization Address City/State/[facility] Co de Phone Number [facility] REFERENCE [facility] [phone] documented in this encounter Visit Diagnoses Not on filedocumented in this encounter Additional Health Concerns Infection Onset Date Last Indicated Resolved Time R/O COVID-19 06/17/2024 06/17/2024 06/17/2024 9:17 AM CDT R/O COVID-19 08/26/2024 08/26/2024 08/26/2024 10:2 7 AM CDT documented as of this encounter Care Teams Solutions Executive Security Relationship Specialty Start Date End Date Alison Ramos MD [address] [place] [address] [address] [place] [phone] PCP - General Internal Medicine 07/21/24 documented as of this encounter
--- OUTSIDE RECORDS SUMMARY | 2025-02-23 23:01 | XMS_ITS | Encounter Summary ---
Author Organization [facility] Address 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 Gender Identity Not on file Sexual Orientation Not on file documented as of this encounter Plan of Treatment Upcoming Encounters Date Type Department Care Team (Late st Contact Info) Description 03/08/2025 10:30 AM SAP PP CONSULTANT Office Visit [facility] [place] [address] [address] [place] [phone] Alison Ramos MD [address] [place] [phone] 04/07/2025 10:00 AM SAP PP CONSULTANT Office Visit [facility] [place] [address] [place] [address] [place] [address] Alison Ramos MD [address] [place] [address] 05/08/2025 9:30 AM SAP PP CONSULTANT Office Visit [facility] [place] [address] [place] [address] [place] [address] Alison Ramos MD [address] [place] [address] [place] [phone] documented as of this encounter Procedures Procedure Name Priority Date/Time Associated Diagnosis Comments URINE CULTURE Routine 03/11/2024 3:00 PM SAP PP CONSULTANT Urinary tract infection, site not specified documented in this encounter Results * URINE CULTURE (03/11/2024 3:00 PM SAP PP CONSULTANT) CULTURE Polymicrobial growth consistent with normal urethral alda and/or colonizing bacteria 03/13/2024 7:27 AM SAP PP CONSULTANT [facility] Urine Collection / Unknown 03/11/2024 3:00 PM SAP PP CONSULTANT 03/11/2024 5:50 PM SAP PP CONSULTANT us Alison Ramos MD MICROBIOLOGY - GENERAL ORDERABLES Final Result [facility] [id number] [address] [place] [phone] documented in this encounter Visit Diagnoses Diagnosis Urinary tract infection, site not specified documented in this encounter Additional Health Concerns Infection Onset Date Last Indicated Resolved Time R/O COVID-19 06/17/2024 06/17/2024 06/17/2024 9:17 AM CDT R/O COVID-19 08/26/2024 08/26/2024 08/26/2024 10:2 7 AM CDT documented as of this encounter Care Teams Promotions Director Relationship Specialty Start Date End Date Alison Ramos MD [address] [place] [address] [address] [place] [phone] PCP - General Internal Medicine 07/21/24 documented as of this encounter
--- OUTSIDE RECORDS SUMMARY | 2025-02-23 23:01 | XMS_ITS | Clinical Summary ---
Author Organization [facility] Address [address] [facility] [address] [place] [address] Phone Care Team Providers Care Shear Tender Name Role Phone Alison Ramos MD Primary Care Provider Allergies No known active allergies Medications mirabegron (Myrbetriq) 50 mg Extended Release 24 hour tablet Take 50 mg by mouth daily. Active levothyroxine 88 mcg tablet Take 88 mcg by mouth daily in the morning. Active loratadine (CLARITIN) 10 mg tablet Take 10 mg by mouth daily. Active hydrOXYzine HCL (ATARAX) 25 mg tablet Take 25 mg by mouth daily at bedtime. Active albuterol sulfate HFA 90 mcg/actuation aerosol inhaler Take 2 Puffs by inhalation every 4 hours as needed for Shortness of Breath. Active nitroglycerin (NITROSTAT) 0.4 mg Tablet, Sublingual Place 0.4 mg under tongue every 5 minutes as needed for Chest Pain. Active lisinopriL (PRINIVIL) 10 mg tablet Take 10 mg by mouth 2 times daily. Active ondansetron (ZOFRAN) 8 mg Tablet Take 8 mg by mouth every 8 hours as needed for Nausea/Emesis. Active busPIRone (BUSPAR) 5 mg tablet Take 1 Tablet (5 mg) by mouth 2 times daily for anxiety. 60 Tablet 5 02/01/20 24 10:34 AM DEPARTMENT CHAIR 024 Active lidocaine (Lidoderm) 5 % Adhesive Patch, Medicated Apply 1-2 Patches to affected area daily. 60 Patch 3 024 Active fluticasone propionate (FLONASE) 50 mcg/spray [place], Suspension nasal inhaler Administer 2 Sprays in each nostril daily. 16 Gram 03/28/2 025 Active ferrous sulfate (Iron) 325 mg (65 mg iron) tablet Take 1 Tablet (325 mg) by mouth daily. 90 Tablet 3 Active olopatadine 0.7 % Drops Administer 1 Drop in both eyes once to twice daily as needed for allergy. 5 mL 2 Active calcium CARBONATE + vitamin D (CALTRATE+D) 600 mg-10 mcg (400 unit) Tablet Take 1 Tablet by mouth daily. Active denosumab (PROLIA) 60 mg/mL Syringe Inject 60 mg by subcutaneous injection see administration instructions. EVERY 6 MONTHS Active donepeziL (ARICEPT) 10 mg tablet TAKE ONE TABLET BY MOUTH ONCE DAILY AT BEDTIME FOR MEMORY 30 Tablet 5 Active DULoxetine (CYMBALTA) 60 mg Capsule, Delayed Release(E.C.) TAKE ONE CAPSULE BY MOUTH ONCE DAILY IN THE MORNING FOR MOOD 30 Capsule 5 Active Jardiance 10 mg tablet TAKE ONE TABLET BY MOUTH ONCE DAILY FOR SUGAR 30 Tablet 5 Active tiZANidine (ZANAFLEX) 2 mg Tablet TAKE ONE TABLET BY MOUTH ONCE DAILY AT BEDTIME NEEDED SPASM 30 Tablet 2 Active sucralfate (CARAFATE) 1 gram tablet Take 1 Tablet (1 Gram) by mouth 4 times daily before meals and at bedtime. 120 Tablet 5 Active furosemide (LASIX) 20 mg tablet Take 1 Tablet (20 mg) by mouth daily. 90 Tablet 5 Active potassium CHLORIDE (K-DUR,KLOR-CON M20) 20 mEq Extended Release tablet Take 1 Tablet (20 mEq) by mouth late in the day. 90 Tablet 4 Active pantoprazole (PROTONIX) 40 mg Tablet, Delayed Release (E.C.) Take 1 Tablet (40 mg) by mouth 2 times daily. 60 Tablet 5 Active clopidogreL (PLAVIX) 75 mg Tablet Take 75 mg by mouth daily. Active traZODone (DESYREL) 50 mg tablet TAKE 1/2 TO 1 TABLET BY MOUTH AT BEDTIME NEEDED 30 Tablet 5 Active nystatin (MYCOSTATIN) 100,000 unit/gram Cream APPLY TOPICALLY TO THE AFFECTED AREA THREE TIMES DAILY 90 Gram 5 Active amLODIPine (NORVASC) 10 mg tablet TAKE ONE TABLET BY MOUTH DAILY 30 Tablet 5 Active digoxin (LANOXIN) 125 mcg (0.125 mg) tablet TAKE ONE TABLET BY MOUTH DAILY 30 Tablet 5 Active gabapentin (NEURONTIN) 600 mg tablet TAKE ONE TABLET BY MOUTH DAILY AT BEDTIME 30 Tablet 5 Active apixaban (ELIQUIS) 2.5 mg tablet Take 1 Tablet (2.5 mg) by mouth 2 times daily. 60 Tablet 3 Active atorvastatin (LIPITOR) 40 mg tablet TAKE 1/2 TABLET BY MOUTH AT BEDTIME 30 Tablet Active metoprolol tartrate (LOPRESSOR) 25 mg tablet TAKE ONE TABLET BY MOUTH TWICE DAILY AT 9AM AND 9PM 60 Tablet Active HYDROcodone-acet aminophen (NORCO) 10-325 mg TabletIndication s:Primary osteoarthritis involving multiple joints Take 1 Tablet by mouth every 8 hours as needed for Pain, Moderate. Max Daily Amount: 3 Tablets 90 Tablet 02/07/20 25 10:11 AM DEPARTMENT CHAIR Active diclofenac sodium (VOLTAREN) 1 % gel Apply 2 Grams to affected area 3 times daily. To affected joint for arthritis 100 Gram 3 02/07/20 25 10:11 AM DEPARTMENT CHAIR Active Ensure MAX Protein Liquid Take 330 mL by mouth 2 times daily. for treatment of malnutrition in patient with high protein needs (elderly, BMI greater than 30, diabetes, wound) 19996 mL 3 025 2024 Active digoxin (LANOXIN) 125 mcg (0.125 mg) tablet Take 125 mcg by mouth daily. 2024 Discontinued gabapentin (NEURONTIN) 600 mg tablet Take 600 mg by mouth 3 times daily. 2024 Discontinued traZODone (DESYREL) 50 mg tablet Take 50 mg by mouth daily at bedtime. 2024 Discontinued diltiaZEM (TIAZAC) 180 mg Extended Release capsule Take 180 mg by mouth daily. 2024 Discontinued amLODIPine (NORVASC) 10 mg tablet Take 10 mg by mouth daily. 2024 Discontinued nystatin (MYCOSTATIN) 100,000 unit/gram Cream Apply 1 APPLICATION Topically Three times a day 60 Gram 1 04/13/19 3:07 PM DEPARTMENT CHAIR 2024 Discontinued apixaban (ELIQUIS) 2.5 mg tablet Take 1 Tablet (2.5 mg) by mouth 2 times daily. 60 Tablet 6 025 2024 Discontinued(R eorder) HYDROcodone-acet aminophen (NORCO) 10-325 mg TabletIndication s:Primary osteoarthritis involving multiple joints Take 1 Tablet by mouth every 8 hours as needed for Pain, Moderate. Max Daily Amount: 3 Tablets 90 Tablet 01/06/20 11:54 AM CDT 2024 Discontinued(R eorder) atorvastatin (LIPITOR) 40 mg tablet Take 20 mg by mouth daily at bedtime. 2024 Discontinued apixaban (ELIQUIS) 2.5 mg tablet Take 1 Tablet (2.5 mg) by mouth 2 times daily. 60 Tablet 6 2024 Discontinued Hospital, Clinic, or Other Facility Administered Medication Ordered Dose Route Frequency Start Date End Date Status cyanocobalamin (VITAMIN B-12) injection 1,000 mcgIndications:Vitamin B12 deficiency (non anemic) 1000 mcg IM ONE TIME ONLY 02/06/2025 02/06/2025 Ended Active Problems Problem Noted Date Diagnosed Date Nonrheumatic mitral valve regurgitation 01/14/20 Chronic heart failure with p reserved ejection fraction (HFpEF) 01/13/2025 Longstanding persistent atrial fibrillation 12/22 Elevated troponin 01/13/2025 Primary hypertension 01/13/2025 ASHD (arteriosclerotic heart disease) 01/13/2025 Hyperlipidemia 01/12/2025 Hypothyroidism 01/12/2025 Insomnia 01/12/2025 Mixed anxiety and depressive disorder 01/12/2025 Mixed stress and urge urinary incontinence 01/12 Restless legs 01/12/2025 Type 2 diabetes mellitus 01/12/2025 Chronic obstructive lung disease 01/12/2025 Osteoporosis 01/12/2025 Coronary artery disease invo lving [place] coronary artery of [place] heart without angina pectoris 01/12/2025 Chronic a-fib 01/12/2025 Dementia 01/12/2025 Chest pain 01/12/2025 Acute gastric ulcer with hemorrhage 07/19/2024 Paroxysmal A-fib 07/19/2024 Upper GI bleed 07/18/2024 Duodenal ulcer 07/18/2024 Melena 07/18/2024 Coffee ground emesis 07/18/2024 Abnormal finding on GI tract imaging 07/18/2024 Anticoagulated 07/18/2024 Perianal rash 05/20/2024 Anal sphincter incontinence 05/20/2024 RUQ abdominal pain 05/01/2022 Calculus of gallbladder with out cholecystitis without obstruction 05/01/2022 Abnormal serum thyroid stimulating hormone (TSH) level 05/01/2022 Gastroesophageal reflux disease 09/28/2019 Resolved Problems Problem Noted Date Diagnosed Date Resolved Date Hypotension 07/18/2024 01/12/2025 Acute bacterial sinusitis 05/27/2024 Acute cystitis with hematuria 05/20/2024 01/12/2025 Encounters Date Type Department Care Team Description 02/10/2025 Orders Only [facility] Care [place] [address] [facility] [address] [place] [address] [place] [address] Provider, Abstract 02/06/2025 10:45 AM DEPARTMENT CHAIR Office Visit [facility] Care [place] [address] [place] [address] Alison Ramos MD Vitamin B12 deficiency (non anemic) (Primary Dx); Primary osteoarthritis involving multiple joints; Duodenal ulcer; Anticoagulated; Paroxysmal A-fib ([facility]); Type 2 diabetes mellitus with hyperosmolarity without coma, unspecified whether fci insulin use (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); Degenerative joint disease of cervical and lumbar spine 01/27/2025 Refill [facility] Care [place] [address] [place] [address] [place] [address] Alison Ramos MD 01/25/2025 Refill [facility] Care [place] [address] [address] [place] [address] Alison Ramos MD 01/18/2025 External Device Data [facility] Provider, Abstract 01/18/2025 External Device Data [facility] [place] Provider, Abstract 01/18/2025 Orders Only [facility] [address] [place] [address] Provider, Abstract 01/18/2025 Abstract [facility] [address] [place] [address] [address] Provider, Abstract 01/17/2025 External Device Data [facility] [place] Provider, Abstract 01/12/2025 1:47 AM CDT - 01/14/2025 12:50 PM CDT Hospital Encounter [facility] [address] [place] [id number] Fritz Hodge DO Sundaram, Vignesh, MD [place], MD Micheal Porter, MD [place] Chest pain Discharge Disposition: Home or Self Care 01/11/2025 6:33 PM CDT - 01/11/2025 11:55 PM CDT Emergency [facility] Emergency Medicine [address] [facility] [address] [place] [address] Jayson Gallardo MD Wilson, [place], DO NSTEMI (non-ST elevated myocardial infarction) (CMS/HCC) (Primary Dx) Discharge Disposition: [facility] 01/11/2025 12:15 AM CDT - 01/11/2025 11:59 PM CDT Hospital Encounter [facility] Emergency Medical Services [address] [address] [facility]ab [facility]dock [facility]position: [facility] 01/11/2025 Travel 01/11/2025 External Device Data [place] Provider, Abstract 01/05/2025 10:30 AM CDT Office Visit [facility] Primary Care [place] [address] [place] [address] Alison Ramos MD Vitamin B12 deficiency (non anemic) (Primary Dx); Primary osteoarthritis involving multiple joints; Primary hypertension; Chronic congestive heart failure, unspecified heart failure type ([facility]); Paroxysmal A-fib ([facility]); Coronary artery disease involving [place] coronary artery of [place] heart without angina pectoris; Influenza vaccination administered at current visit; Duodenal ulcer; Other iron deficiency anemia; Osteoporosis with current pathological fracture, unspecified osteoporosis type, initial encounter; Osteoarthritis of spine with radiculopathy, lumbar region; Chronic obstructive pulmonary disease, unspecified COPD type ([facility]) 01/05/2025 Telephone [facility] Primary Care [place] [address] [place] [address] Alison Ramos MD request office notes 12/27/2024 Refill [facility] Primary Care [place] [address] [place] [address] Alison Ramos MD 12/27/2024 Refill [facility] Primary Care [place] [address] [place] [address] Alison Ramos MD 12/09/2024 Abstract [facility] Primary Care [place] [address] [place] [address] Alison Ramos MD 12/06/2024 12:45 PM CDT Procedure visit [facility] Laboratory Services [place] [address] [place] [address] Alison Ramos MD Anemia, unspecified type; Atherosclerosis of [place] coronary artery of [place] heart without angina pectoris 12/06/2024 9:45 AM CDT Office Visit [facility] Primary Care [place] [address] [place] [address] Alison Ramos MD Anemia, unspecified type (Primary Dx); Primary osteoarthritis involving multiple joints; Atherosclerosis of [place] coronary artery of [place] heart without angina pectoris; Type 2 diabetes mellitus with hyperosmolarity without coma, without long-term current use of insulin ([facility]) 12/04/2024 Orders Only [facility] Provider, Abstract 12/04/2024 Abstract [facility] [place] Provider, Abstract 11/24/2024 Abstract [facility] Primary Care [place] [address] [facility] [address] [facility] [place] [address] Alison Ramos MD from Last 3 Months Immunizations Immunization Administration Dates Next Due (ADACEL/BOOSTRIX)(10 YR UP) TDAP VACCINE, 0.5ML, IM 05/11/2019,12/11/2018 (AREXVY)(60 YR UP) RSV, ABEL MBINANT, PROTEIN SUBUNIT RSVPREF, ADJUVANT RECONSTITUTED, 0.5 ML, PF 02/03/2023 (PREVNAR 20)(6 WKS UP) PNEUM OCOCCAL CONJUGATE VACCINE 20-VALENT (PCV20), POLYSACCHARIDE BEG856 CONJUGATE, ADJUVANT 0.5 ML (PF) IM 03/03/2023 INFLUENZA VACCINE HIGH DOSE QUADRIVALENT 65 YR UP PF IM 12/31/2023,01/05/2023,12/26/2021,12/31,12/11/2016 INFLUENZA VACCINE HIGH DOSE TRIVALENT SPLIT VIRUS, (65 YR UP), 0.5ML (PF), IM 01/05/2025 Influenza Seasonal Unspecifi ed Formulation IM 12/26/2014 PNEUMOVAX (PPSV23) pneumococ rogelio polysaccharide 23-valent Vaccine 12/31/2017 Zoster, Unspecified Formulation 02/01/2024 Family History Medical History Relation Name Comments Hypertension Sister Relation Name Status Comments Father Mother Sister Social History Tobacco Use Types Packs/Day Years Used Date Smoking Tobacco: Never Smokeless Tobacco: Never Tobacco Cessation:Counseling Given: No Alcohol Use Standard Drinks/Week Comments Not Currently 0 (1 standard drink = 0.6 oz pur e alcohol) Food Insecurity Answer Date Recorded Do you find you are eating l ess than you should because you can t pay for food? No 02/06/2025 Transportation Needs Answer Date Record ed Have you gone without health care because you didn t have a way to get there? Or worry about transportation for future doctor visits, mushroom picker medication, etc.? No 2024 Housing Stability Answer Date Recorded Do you worry you won t have a steady place to sleep or struggle to pay rent or mortgage? No 02/06/2025 Utility Needs Answer Date Recorded Do you have difficulty payin g for utility costs (electric, water or gas bills)? No 02/06/2025 Medication Needs Answer Date Recorded Have you skipped taking medi cation due to cost or worry you can t afford new medications? No 02/06/2025 Feeling Safe Answer Date Recorded Are you in a relationship wi th someone who hurts you emotionally and/or physically? No 02/06/2025 Food Insecurity Answer Date Recorded Patient needs follow up regardin 07/19/2024 Transportation Needs Answer Date Record ed Patient needs follow up regardin 07/19/2024 Utility Needs Answer Date Recorded Patient needs follow up regardin 07/19/2024 Education Answer Date Recorded What is the highest level of school you have completed or the highest degree you have received? 10th grade 02/06/2025 Comments No Sex and Gender Information Value Date Recorded Sex Assigned at Not on file Legal Sex Female 11:31 PM DEPARTMENT CHAIR Gender Identity Not on file Sexual Orientation Not on file Last Filed Vital Signs Vital Sign Reading Time Taken Comments Blood Pressure 134/76 02/06/2025 9:06 AM DEPARTMENT CHAIR Pulse 81 02/06/2025 9:06 AM DEPARTMENT CHAIR Temperature 36.1 C (97 F) 02/06/2025 9:06 AM DEPARTMENT CHAIR Respiratory Rate 16 01/14/2025 8:09 AM CDT Oxygen Saturation 96% 02/06/2025 9:06 AM DEPARTMENT CHAIR Inhaled Oxygen Concentration - - Weight 66.1 kg (145 lb 12.8 oz) 02/06/2025 9:06 AM DEPARTMENT CHAIR Height 162.6 cm (5' 4 ) 02/06/2025 9:06 AM DEPARTMENT CHAIR Body Mass Index 25.03 02/06/2025 9:06 AM DEPARTMENT CHAIR Plan of Treatment Upcoming Encounters Date Type Department Care Team (Late st Contact Info) Description 03/08/2025 10:30 AM DEPARTMENT CHAIR Office Visit [facility] Primary Care [place] [address] [facility] [address] [place] [address] Alison Ramos MD [address] [place] [address] 04/07/2025 10:00 AM DEPARTMENT CHAIR Office Visit [facility] Primary Care [place] [address] [place] [address] Alison Ramos MD [address] [place] [address] 05/08/2025 9:30 AM DEPARTMENT CHAIR Office Visit [facility] Primary Care [place] [address] [place] [address] Alison Ramos MD [address] [place] [address] Health Maintenance Due Date Last Done Comments DIABETES ANNUAL RETINAL EXAM 1960 DIABETES MICROALBUMIN ANNUAL SCREEN 1960 ZOSTER VACCINE (1 of 2) 1992 OSTEOPOROSIS SCREENING 12/25/2007 KHE uACR (Auto Order) 03/23/2024 DIABETES HBA1C Q 6 MONTHS 02/09/2025 08/09/2024 DIABETES: A1C (Auto Order) 08/09/2025 08/09/2024 LDL CHOLESTEROL ANNUAL 11/22/2025 11/22/2024, 2024 DIABETES ANNUAL FOOT EXAM 02/06/2026 02/06/2025 [place] Preventative Visit/Annual Wellness Visit 02/06/2026 Postponed from 03/23/2024 (Therapeutic Plan Prohibits) DTAP/TDAP/TD VACCINES (3 - Td or Tdap) 05/11/2029 05/11/2019, 12/11/2018 COVID-19 Vaccine Discontinued 06/26/2020, 05/29/2020 RSV VACCINE (60+ or ) Completed 02/03/2023 PNEUMOCOCCAL VACCINE 50+ YEARS Completed 03/03/2023, 12/31/2017 INFLUENZA VACCINE Completed 01/05/2025, , 01/05/2023, Additional history exists KHE eGFR (Auto Order) Completed 01/14/2025 , 01/11/2025, 12/07/2024, Additional history exists Medical Devices Implanted Type Area Supervisor Tubing Device Identifier Shelf Expiration Date Model / Serial / Lot Clip Endo Resolution 360 Ultra 2.8mm 235cm [id number] - [id number] Implanted:Qty: 1 on 07/18/2024 by Rodney Bright MD at [facility] Clip N/A: Stomach Cuurio GOMEZ [id number] 03/29/2027 [id number] / / [id number] Procedures Procedure Name Priority Date/Time Associated Diagnosis Comments TELEMETRY REPORT 01/16/2025 3:33 AM CDT DIFFERENTIAL, MANUAL Routine 01/14/2025 4:27 AM CDT COMPREHENSIVE METABOLIC PANEL Routine 01/14/2025 4:27 AM CDT CBC WITH DIFFERENTIAL Routine 01/14/2025 4:27 AM CDT ECHOCARDIOGRAM W/ CONTRAST AGENT Stat 01/13/2025 3:17 PM CDT TROPONIN 2 HR, 5TH GEN Timed Study 8:43 PM CDT URINALYSIS MICROSCOPY ONLY Stat 01/11/2025 8:26 PM CDT URINALYSIS W/REFLEX MICROSCOPIC Stat 01/11/2025 8:26 PM CDT XR CHEST PA OR AP 1 VW Stat 7:10 PM CDT EKG 12-LEAD Stat 01/11/2025 6:54 PM CDT DIFFERENTIAL, MANUAL Stat 01/11/2025 6:00 PM CDT TROPONIN BASELINE, 5TH GEN Stat 01/11/2025 6:00 PM CDT MAGNESIUM LEVEL Stat 01/11/2025 6:00 PM CDT C-REACTIVE PROTEIN Stat 01/11/2025 6: 00 PM CDT TSH Stat 01/11/2025 6:00 PM CDT LACTIC ACID Stat 01/11/2025 6:00 PM CDT BRAIN NATRIURETIC PEPTIDE, BNP OR PROBNP Stat 01/11/2025 6:00 PM CDT COMPREHENSIVE METABOLIC PANEL Stat 01/11/2025 6:00 PM CDT SEDIMENTATION RATE Stat 01/11/2025 6: 00 PM CDT D-DIMER Stat 01/11/2025 6:00 PM CDT PTT Stat 01/11/2025 6:00 PM CDT PROTIME-INR Stat 01/11/2025 6:00 PM CDT CBC WITH DIFFERENTIAL Stat 01/11/2025 6:00 PM CDT COMPREHENSIVE METABOLIC PANEL Routine 12/07/2024 10:14 AM CDT PROTIME-INR Routine 12/07/2024 BASIC METABOLIC PANEL Routine 12/06/2024 11:45 AM CDT Anemia, unspecified type Atherosclerosis of [place] coronary artery of [place] heart without angina pectoris IRON, TIBC, AND PERCENT SATURATION Routine 12/06/2024 11:45 AM CDT Anemia, unspecified type Atherosclerosis of [place] coronary artery of [place] heart without angina pectoris COMPREHENSIVE METABOLIC PANEL Routine 12/03/2024 10:19 AM CDT COMPREHENSIVE METABOLIC PANEL Routine 12/01/2024 10:17 AM CDT COMPREHENSIVE METABOLIC PANEL Routine 11/25/2024 10:22 AM CDT LIPID PANEL Routine 11/22/2024 HEMOGLOBIN A1C Routine 08/09/2024 8:27 AM CDT from Last 3 Months or Most Recently Relevant to Health Maintenance Results * TELEMETRY REPORT (01/16/2025 3:33 AM CDT) us Provider Scanning ECG ORDERABLES Final Result * MANUAL DIFFERENTIAL (01/14/2025 4:27 AM CDT) Only the most recent of2 resultswithin the time period is included. PLATELET EST. Adequate 01/14/2025 6:[address] [facility] ANISOCYTOSIS 1+ /hpf 01/14/2025 6:[address] [facility] POIKILOCYTES 1+ /hpf 01/14/2025 6:[address] [facility] HYPOCHROMIA 1+ /hpf 01/14/2025 6:[address] [facility] OVALOCYTES 1+ /hpf 01/14/2025 6:[address] [facility] Blood Venipuncture / Unknown 01/14/2025 4:27 AM CDT 01/14/2025 5:24 AM CDT us Pilo Burton MD HEMATOLOGY ORDERABLES COM Final Result [facility] CLIA # [id number] [address] [facility] [place] [address] * (ABNORMAL) CBC WITH DIFFERENTIAL (01/14/2025 4:27 AM CDT) Only the most recent of2 resultswithin the time period is included. [facility] WBC 6.4 4.8 - 10.8 K/uL 01/14/2025 6:07 AM [facility] RBC 4.73 4.20 - 5.40 M/uL 01/14/2025 6:07 AM [facility] HEMOGLOBIN 12.4 12.0 - 16.0 g/dL 01/14/2025 6:07 AM [facility] HEMATOCRIT 41.2 36.0 - 46.0 % 01/14/2025 6:07 AM [facility] MCV 87.1 84.0 - 103.0 fL 01/14/2025 6:07 AM [facility] MCH 26.2(L) 27.0 - 34.0 pg 01/14/2025 6:07 AM [facility] MCHC 30.1 30.0 - 35.0 g/dL 01/14/2025 6:07 AM [facility] PLATELETS 319 140 - 440 K/uL 01/14/2025 6:07 AM [facility] MPV 9.4 8.9 - 12.8 fL 01/14/2025 6:07 AM [facility] RDW 22.4(H) 11.0 - 14.5 % 01/14/2025 6:07 AM [facility] RDW-STDEV 72.1(H) 37.0 - 54.0 fL 01/14/2025 6:07 AM [facility] NEUTROPHILS 65 42 - 75 % 01/14/2025 6:07 AM [facility] LYMPHOCYTES 18(L) 24 - 44 % 01/14/2025 6:07 AM [facility] MONOCYTES 12(H) 2 - 10 % 01/14/2025 6:07 AM [facility] EOSINOPHILS 4 0 - 7 % 01/14/2025 6:07 AM [facility] BASOPHILS 1 0 - 1 % 01/14/2025 6:07 AM [facility] IMMATURE GRANULOCYTES 0 0 - 2 % 01/14/2025 6:[address] [facility] NEUTROPHIL ABSOLUTE 4.13 2.00 - 8.00 K/uL 01/14/2025 6:[address] [facility] LYMPHOCYTE ABSOLUTE 1.18(L) 1.20 - 4.00 K/uL 01/14/2025 6:[address] [facility] MONOCYTE ABSOLUTE 0.77(H) 0.10 - 0.60 K/uL 01/14/2025 6:[address] [facility] EOSINOPHIL ABSOLUTE 0.26 0.00 - 0.70 K/uL 01/14/2025 6:[address] [facility] BASOPHILS ABSOLUTE 0.05 0.00 - 0.20 K/uL 01/14/2025 6:[address] [facility] IMMATURE GRANULOCYTES ABSOLUTE 0.01 0.00 - 0.10 K/uL 01/14/2025 6:[address] [facility] SMEAR REVIEWED: SR - See Smear Review on Manual Diff. 01/14/2025 6:07 AM [facility] Blood Venipuncture / Unknown 01/14/2025 4:27 AM CDT 01/14/2025 5:24 AM CDT us Pilo Burton MD HEMATOLOGY ORDERABLES Final Resu lt [facility] CLIA # [id number] [address] [place] [address] [place] [address] * (ABNORMAL) COMPREHENSIVE METABOLIC PANEL (01/14/2025 4:27 AM CDT) Only the most recent of6 resultswithin the time period is included. SODIUM 138 136 - 145 mmol/L 01/14/2025 6:[address] [facility] POTASSIUM 3.2(L) 3.5 - 5.1 mmol/L 01/14/2025 6:21 AM [facility] [facility] 97(L) 98 - 107 mmol/L 01/14/2025 6:21 AM [facility] CO2 29 22 - 29 mmol/L 01/14/2025 6:21 AM [facility] CALCIUM 9.7 8.8 - 10.2 mg/dL 01/14/2025 6:21 AM [facility] BUN 16 8 - 23 mg/dL 01/14/2025 6:21 AM [facility] CREATININE 1.40(H) 0.51 - 0.95 mg/dL 01/14/2025 6:21 AM [facility] Comment:The GFR result is no t clinically significant on patients <18 or >70 years of age. GLUCOSE 88 74 - 99 mg/dL 01/14/2025 6:21 AM [facility] TOTAL PROTEIN 6.7 6.4 - 8.3 g/dL 01/14/2025 6:21 AM [facility] ALBUMIN 4.0 3.5 - 5.2 g/dL 01/14/2025 6:21 AM [facility] BILIRUBIN TOTAL 0.7 0.0 - 1.0 mg/dL 01/14/2025 6:21 AM [facility] ALKALINE PHOSPHATASE 80 35 - 104 U/L 01/14/2025 6:21 AM [facility] AST 19 10 - 35 U/L 01/14/2025 6:21 AM [facility] ALT 8 <=35 U/L 01/14/2025 6:21 AM [facility] GFR 38 mL/min/1. 73 sq meter 01/14/2025 6:21 AM [facility] Comment:eGFR calculated with 2020 CKD-EPI equation. Vegetarian diet, extremely high or low muscle mass, and may affect results. Cystatin C with Glomerular Filtration Rate is a suitable alternative for these patients. ANION GAP 12 9 - 20 mmol/L 01/14/2025 6:21 AM CDT [facility] Blood Venipuncture / Unknown 01/14/2025 4:27 AM CDT 01/14/2025 5:23 AM CDT us Pilo Burton MD CHEMISTRY ORDERABLES Final Resul t [id number] [id number] * ECHOCARDIOGRAM W/ CONTRAST AGENT (01/13/2025 3:17 PM CDT) EJECTION FRACTION 60 INTERFACE SYSTEM 01/13/2025 2:09 PM CDT Narrative INTERFACE SYSTEM - 01/13/2025 4:05 PM CDT [facility] Echocardiography Laboratory [address] [place] [id number] Transthoracic Echocardiography Patient: Arielle Vences Study ID: ECHOCARDIOGRAM W A Gender: F : 1940 Age: 84 Room: [facility] Study 01/13/2025 Pt Inpatient Date: Status: Study 02:09:38 PM CSN #: [id number] Time: Ordering:Pilo Burton Supervisor Farm Equipment Maintenance: MARIELY Indications and History: Adult Congenital Heart Disease; Cardiac Etiology: General; HF, Cardiomyopathy; Chest pain; Re-evaluation with change in clinical status without clear precipitating factor; Known or suspected adult congenital heart disease. Summary and Conclusion: - Left ventricle: The cavity size is normal. Wall thickness is increased in a pattern of mild LVH. There is focal basal hypertrophy. Global systolic function is normal. For Epic reporting: the left ventricular ejection fraction is 60% by visual assessment. No diagnostic regional wall motion abnormality identified. Abnormal relaxation with increased filling pressures. - Right ventricle: The cavity size is normal. Systolic function is normal. Systolic pressure is mildly increased. The estimated peak pressure is 40mm Hg. - Left atrium: The atrium is severely dilated. - Right atrium: The atrium is mildly to moderately dilated. - Aortic valve: The valve is trileaflet. The leaflets are mildly thickened and mildly calcified. There is mild stenosis. There is mild regurgitation. - Mitral valve: There is mild regurgitation. - Tricuspid valve: There is mild regurgitation. - Pulmonic valve: There is trivial to mild regurgitation. - Pericardium: There is mild pericardial effusion. Comparison: No previous study was available for comparison. Procedure information: No prior study is available for comparison. Study status: Routine. Procedure: A transthoracic echocardiogram was performed. The study was technically limited due to poor acoustic window availability. Scanning was performed from the parasternal, apical, subcostal, and suprasternal notch acoustic windows. Intravenous contrast (Definity) was administered. There were no complications. There were no contrast reactions. Study components: M-mode, 2D, complete spectral Doppler, and color Doppler. Height: 162.6cm. Height: 64in. Weight: 65.5kg. Weight: 144.4lb. BMI: 24.8kg/m^2. BSA: 1.73m^2. Blood pressure: 164/86 Study date: 01/13/2025. Study time: 02:09 PM. Location: Bedside. Cardiac Anatomy: LEFT VENTRICLE: The cavity size is normal. Wall thickness is increased in a pattern of mild LVH. There is focal basal hypertrophy. Global systolic function is normal. For Epic reporting: the left ventricular ejection fraction is 60% by visual assessment. No diagnostic regional wall motion abnormality identified. Abnormal relaxation with increased filling pressures. RIGHT VENTRICLE: The cavity size is normal. Systolic function is normal. Systolic pressure is mildly increased. The estimated peak pressure is 40mm Hg. LEFT ATRIUM: The atrium is severely dilated. RIGHT ATRIUM: The atrium is mildly to moderately dilated. ATRIAL SEPTUM: No obvious PFO or ASD identified by 2D imaging and color Doppler. AORTIC VALVE: The valve is trileaflet. The leaflets are mildly thickened and mildly calcified. There is mild stenosis. There is mild regurgitation. MITRAL VALVE: Structurally normal valve. Mobility is not restricted. There is no evidence for stenosis. There is mild regurgitation. TRICUSPID VALVE: Structurally normal valve. Mobility is unrestricted. There is no evidence for stenosis. There is mild regurgitation. PULMONIC VALVE: Not well visualized. The valve appears to be grossly normal. There is no evidence for stenosis. There is trivial to mild regurgitation. PERICARDIUM: There is mild pericardial effusion. AORTA: Aortic root: The root is not dilated. Measurements Left ventricle Value Right ventricle Value FRANCOIS, LAX 4.6 cm FRANCOIS, LAX 2.4 cm ESD, LAX 2.5 cm FRANCOIS 2.4 cm FRANCOIS/bsa, LAX 2.6 cm/m^2 TAPSE, 2D 1.9 cm ESD/bsa, LAX 1.5 cm/m^2 TAPSE, MM 1.9 cm FS, LAX 45 % S' lateral 14.1 cm/sec FS, LAX chord 45 % ESD major ax, A4C 6.5 cm Left atrium Value ESD/bsa major ax, A4C 3.8 cm/m^2 AP dim, ES 4.2 cm FRANCOIS minor ax, A4C 6.5 cm AP dim index, ES 2.4 cm/m^2 FRANCOIS/bsa minor ax, A4C 3.8 cm/m^2 SI dim, A4C 7.2 cm FRANCOIS major ax, A2C 7.3 cm Area ES, A4C 37 cm^2 ESD major ax, A2C 5.1 cm Vol, S 133 ml FRANCOIS/bsa major ax, A2C 4.2 cm/m^2 Vol/bsa, S 77 ml/m^2 ESD/bsa major ax, A2C 2.9 cm/m^2 Vol, ES, 1-p A4C 149 ml IVS, ED 1.0 cm Vol/bsa, ES, 1-p A4C 86 ml/m^2 ESD 2.5 cm Vol, ES, 1-p A2C 107 ml ESD/bsa 1.5 cm/m^2 Vol/bsa, ES, 1-p A2C 62 ml/m^2 FS 45 % Vol, ES, 2-p 126 ml PW, ED 1.0 cm Vol/bsa, ES, 2-p 73 ml/m^2 IVS/PW, ED 1 Vol, ES, A/L 157 ml EDV, 1-p A2C 62 ml Vol/bsa, ES, A/L 91 ml/m^2 ESV, 1-p A2C 40 ml EF, 1-p A2C 65 % Right atrium Value EDV/bsa, 1-p A2C 36 ml/m^2 Area, ES 19 cm^2 ESV/bsa, 1-p A2C 23 ml/m^2 Area, ES, A4C 19 cm^2 EDV, 1-p A4C 81 ml ESV, 1-p A4C 29 ml Aortic valve Value EF, 1-p A4C 65 % Peak v, S 131.94 cm/sec SV, 1-p A4C 53 ml Peak grad, S 7 mm Hg EDV/bsa, 1-p A4C 47 ml/m^2 LVOT/AV, Vpeak ratio 1.2 ESV/bsa, 1-p A4C 17 ml/m^2 MARLENE, Vmax 2.25 cm^2 SV/bsa, 1-p A4C 30 ml/m^2 MARLENE/bsa, Vmax 1.3 cm^2/m^2 EDV, 2-p 73 ml ESV, 2-p 28 ml Mitral valve Value EF, 2-p 62 % Peak E 115.62 cm/sec SV, 2-p 22 ml Peak A 25.9 cm/sec EDV/bsa, 2-p 42 ml/m^2 Decel slope 646.67 cm/s^2 ESV/bsa, 2-p 16 ml/m^2 Decel time 179 ms SV/bsa, 2-p 12.7 ml/m^2 Peak grad, D 5 mm Hg E', lat maddi, TDI 9.2 cm/sec Peak E/A ratio 4.46 E/e', lat maddi, TDI 13 Vena contracta width 2.4 cm E', med maddi, TDI 7.7 cm/sec E/e', med maddi, TDI 15 Tricuspid valve Value E', avg, TDI 8.4 cm/sec TR peak v 299.57 cm/sec E/e', avg, TDI 14 Peak RV-RA grad, S 36 mm Hg LVOT Value Ascending aorta Value Diam, S 2.0 cm AAo AP diam, S 3.6 cm Area 3.1 cm^2 AAo AP diam/bsa, S 2.1 cm/m^2 Peak philippe, S 158.53 cm/sec Peak grad, S 10 mm Hg Legend: (L) and (H) kirstie values outside specified reference range. [facility] are accredited with the [facility] Acc[facility] Commission - Echocardiography. 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 Summary and Conclusion: - Left ventricle: The cavity size is normal. Wall thickness is increasedin a pattern of mild LVH. There is focal basal hypertrophy. Global systolic function is normal. For Epic reporting: the left ventricular ejection fraction is 60% by visual assessment. No diagnostic regional wallmotion abnormality identified. Abnormal relaxation with increased filling pressures. - Right ventricle: The cavity size is normal. Systolic function isnormal. Systolic pressure is mildly increased. The estimated peak pressure is40mm Hg. - Left atrium: The atrium is severely dilated. - Right atrium: The atrium is mildly to moderately dilated. - Aortic valve: The valve is trileaflet. The leaflets are mildly thickenedand mildly calcified. There is mild stenosis. There is mild regurgitation. - Mitral valve: There is mild regurgitation. - Tricuspid valve: There is mild regurgitation. - Pulmonic valve: There is trivial to mild regurgitation. - Pericardium: There is mild pericardial effusion. Comparison: No previous study was available for comparison. Procedure information: No prior study is available for comparison.Study status: Routine. Procedure: A transthoracic echocardiogram wasperformed. The study was technically limited due to poor acoustic windowavailability. Scanning was performed from the parasternal, apical, subcostal, and suprasternal notch acoustic windows. Intravenous contrast (Definity) was administered. There were no complications. There were no contrastreactions. Study components: M-mode, 2D, complete spectral Doppler, andcolor Doppler. Height: 162.6cm. Height: 64in. Weight: 65.5kg. Weight:144.4lb. BMI: 24.8kg/m^2. BSA: 1.73m^2. Blood pressure: 164/86Study date: 01/13/2025. Study time: 02:09 PM. Location: Bedside. Cardiac Anatomy: LEFT VENTRICLE: The cavity size is normal. Wall thickness is increased joshua pattern of mild LVH. There is focal basal hypertrophy. Global systolic function is normal. For Epic reporting: the left ventricular ejectionfraction is 60% by visual assessment. No diagnostic regional wall motionabnormality identified. Abnormal relaxation with increased filling pressures. RIGHT VENTRICLE: The cavity size is normal. Systolic function isnormal. Systolic pressure is mildly increased. The estimated peak pressure is 40mmHg. LEFT ATRIUM: The atrium is severely dilated. RIGHT ATRIUM: The atrium is mildly to moderately dilated. ATRIAL SEPTUM: No obvious PFO or ASD identified by 2D imaging and color Doppler. AORTIC VALVE: The valve is trileaflet. The leaflets are mildly thickenedand mildly calcified. There is mild stenosis. There is mildregurgitation. MITRAL VALVE: Structurally normal valve. Mobility is not restricted. There is no evidence for stenosis. There is mild regurgitation. TRICUSPID VALVE: Structurally normal valve. Mobility isunrestricted. There is no evidence for stenosis. There is mild regurgitation. PULMONIC VALVE: Not well visualized. The valve appears to be grosslynormal. There is no evidence for stenosis. There is trivial to mild regurgitation. PERICARDIUM: There is mild pericardial effusion. AORTA: Aortic root: The root is not dilated. Measurements Left ventricle Value Right ventricle Value FRANCOIS, LAX 4.6 cm FRANCOIS, LAX 2.4 cm ESD, LAX 2.5 cm FRANCOIS 2.4 cm FRANCOIS/bsa, LAX 2.6 cm/m^2 TAPSE, 2D 1.9 cm ESD/bsa, LAX 1.5 cm/m^2 TAPSE, MM 1.9 cm FS, LAX 45 % S' lateral 14.1cm/sec FS, LAX chord 45 % ESD major ax, A4C 6.5 cm Left atrium Value ESD/bsa major ax, A4C 3.8 cm/m^2 AP dim, ES 4.2 cm FRANCOIS minor ax, A4C 6.5 cm AP dim index, ES 2.4cm/m^2 FRANCOIS/bsa minor ax, A4C 3.8 cm/m^2 SI dim, A4C 7.2 cm FRANCOIS major ax, A2C 7.3 cm Area ES, A4C 37 cm^2 ESD major ax, A2C 5.1 cm Vol, S 133 ml FRANCOIS/bsa major ax, A2C 4.2 cm/m^2 Vol/bsa, S 77ml/m^2 ESD/bsa major ax, A2C 2.9 cm/m^2 Vol, ES, 1-p A4C 149 ml IVS, ED 1.0 cm Vol/bsa, ES, 1-p A4C 86ml/m^2 ESD 2.5 cm Vol, ES, 1-p A2C 107 ml ESD/bsa 1.5 cm/m^2 Vol/bsa, ES, 1-p A2C 62ml/m^2 FS 45 % Vol, ES, 2-p 126 ml PW, ED 1.0 cm Vol/bsa, ES, 2-p 73ml/m^2 IVS/PW, ED 1 Vol, ES, A/L 157 ml EDV, 1-p A2C 62 ml Vol/bsa, ES, A/L 91ml/m^2 ESV, 1-p A2C 40 ml EF, 1-p A2C 65 % Right atrium Value EDV/bsa, 1-p A2C 36 ml/m^2 Area, ES 19 cm^2 ESV/bsa, 1-p A2C 23 ml/m^2 Area, ES, A4C 19 cm^2 EDV, 1-p A4C 81 ml ESV, 1-p A4C 29 ml Aortic valve Value EF, 1-p A4C 65 % Peak v, S 131.94cm/sec SV, 1-p A4C 53 ml Peak grad, S 7 mmHg EDV/bsa, 1-p A4C 47 ml/m^2 LVOT/AV, Vpeak ratio 1.2 ESV/bsa, 1-p A4C 17 ml/m^2 MARLENE, Vmax 2.25 cm^2 SV/bsa, 1-p A4C 30 ml/m^2 MARLENE/bsa, Vmax 1.3cm^2/m^2 EDV, 2-p 73 ml ESV, 2-p 28 ml Mitral valve Value EF, 2-p 62 % Peak E 115.62cm/sec SV, 2-p 22 ml Peak A 25.9cm/sec EDV/bsa, 2-p 42 ml/m^2 Decel slope 646.67cm/s^2 ESV/bsa, 2-p 16 ml/m^2 Decel time 179 ms SV/bsa, 2-p 12.7 ml/m^2 Peak grad, D 5 mmHg E', lat maddi, TDI 9.2 cm/sec Peak E/A ratio 4.46 E/e', lat maddi, TDI 13 Vena contracta width 2.4 cm E', med maddi, TDI 7.7 cm/sec E/e', med maddi, TDI 15 Tricuspid valve Value E', avg, TDI 8.4 cm/sec TR peak v 299.57cm/sec E/e', avg, TDI 14 Peak RV-RA grad, S 36 mmHg LVOT Value Ascending aorta Value Diam, S 2.0 cm AAo AP diam, S 3.6 cm Area 3.1 cm^2 AAo AP diam/bsa, S 2.1cm/m^2 Peak philippe, S 158.53 cm/sec Peak grad, S 10 mm Hg Legend: (L) and (H) kirstie values outside specified reference range. [facility] are accredited with the[facility] Accreditation Commission - Echocardiography. Prepared and Electronically Authenticated Ajit Garcia Confirmed 01/13/2025 16:05 us Pilo Burton MD US ORDERABLES Final Result Performing Organization Address City/[facility]/ZIP Co de Phone Number INTERFACE SYSTEM Refer to clinic/hospital department * (ABNORMAL) TROPONIN 2 HR, 5TH GEN (01/11/2025 8:43 PM CDT) TROPONIN T, 2 HR 5TH GEN 43(H) <=10 ng/L 01/11/2025 9:19 PM CDT [facility] DELTA 2HR TROPONIN T -1 See Interp. 01/11/2025 9:19 PM CDT [facility] Blood BLOOD SPECIMEN / Unknown Collection / Unknown 01/11/2025 8:43 PM CDT 01/11/2025 8:56 PM CDT Narrative [facility] - 01/11/2025 9:19 PM CDT Troponin elevated. Delta not changing. us Jayson Gallardo MD CHEMISTRY ORDERABLES Final Resu lt Performing Organization Address City/[facility]/ZIP Co de Phone Number [facility] CLIA # [id number] [address] [place] [address] * (ABNORMAL) URINALYSIS MICROSCOPY ONLY (01/11/2025 8:26 PM CDT) WBC UA 3-5(A) 0 - 2 /hpf 01/11/2025 9:05 PM CDT [facility] RBC UA 0-2 0 - 2 /hpf 01/11/2025 9:05 PM CDT [facility] BACTERIA UA Negative Negative /hpf 01/11/2025 9:05 PM CDT [facility] EPITHELIAL CELLS, URINE 0-5 0 - 5 /hpf 01/11/2025 9:05 PM CDT [facility] Urine URINE SPECIMEN OBTAINED BY CLEAN CATCH PROCEDURE / Unknown Collection / Unknown 01/11/2025 8:26 PM CDT 01/11/2025 8:55 PM CDT Jayson Gallardo MD URINE ORDERABLES Final Result [facility] CLIA # [id number] [address] [place] [phone] * (ABNORMAL) URINALYSIS WITH REFLEX MICROSCOPIC (01/11/2025 8:26 PM CDT) COLOR UA Yellow Pale to Dark Yellow 01/11/2025 9:05 PM [facility] CLARITY UA Clear Clear 01/11/2025 9:05 PM [facility] SPECIFIC GRAVITY UA 1.010 1.003 - 1.035 01/11/2025 9:05 PM [facility] PH UA 5.5 5.0 - 8.0 01/11/2025 9:05 PM [facility] LEUKOCYTE ESTERASE UA 1+(A) Negative 01/11/2025 9:05 PM [facility] NITRITE UA Negative Negative 01/11/2025 9:05 PM [facility] PROTEIN UA Negative Negative 01/11/2025 9:05 PM [facility] GLUCOSE UA Negative Negative 01/11/2025 9:05 PM [facility] KETONES UA Negative Negative 01/11/2025 9:05 PM [facility] UROBILINOGEN UA 0.2 <2.0 mg/dL 9:05 PM [facility] BILIRUBIN UA Negative Negative 01/11/2025 9:05 PM [facility] BLOOD UA Trace(A) Negative 01/11/2025 9:05 PM [facility] Urine URINE SPECIMEN OBTAINED BY CLEAN CATCH PROCEDURE / Unknown Collection / Unknown 01/11/2025 8:26 PM CDT 01/11/2025 8:55 PM CDT Jayson Gallardo MD URINE ORDERABLES Final Result [facility] # [id number] [address] [id number] * XR CHEST PA OR AP 1 VW (01/11/2025 7:10 PM CDT) Anatomical Region Laterality Modality Chest Computed Radiogr aphy 01/11/2025 7:10 PM CDT Impressions 01/11/2025 7:22 PM CDT IMPRESSION: See below. EXAMINATION: XR CHEST PA OR AP 1 VW CLINICAL HISTORY: ASSOCIATED DIAGNOSIS: Chest Pain ORDERING PROVIDER: JAYSON GALLARDO TECHNOLOGISTS NOTE: COMPARISON: August 27, 2024 FINDINGS/IMPRESSION: Lines, tubes, and devices: None. Lungs are clear. Chronic interstitial changes. Vascular congestion. No significant effusion or pneumothorax. Heart is enlarged. Narrative Procedure Note Armani Sandoval MD - 01/11/2025 IMPRESSION: See below. EXAMINATION: XR CHEST PA OR AP 1 VW CLINICAL HISTORY: ASSOCIATED DIAGNOSIS: Chest Pain ORDERING PROVIDER: JAYSON GALLARDO TECHNOLOGISTS NOTE: COMPARISON: August 27, 2024 FINDINGS/IMPRESSION: Lines, tubes, and devices: None. Lungs are clear. Chronic interstitial changes. Vascular congestion. No significant effusion or pneumothorax. Heart is enlarged. Jayson Gallardo MD DIAGNOSTIC IMAGING ORDERABLES F inal Result * EKG 12-LEAD (01/11/2025 6:54 PM CDT) Narrative Aftab Murdock DO - 01/11/2025 6:54 PM CDT Aftab Murdock DO 01/12/2025 9:56 PM EKG 12-LEAD Date/Time: 01/11/2025 6:54 PM Performed by: Jayson Gallardo MD Authorized by: Jayson Gallardo MD ECG interpreted by ED Physician in the absence of a human resources psychologist: yes Rate: ECG rate: 101 ECG rate assessment: tachycardic Rhythm: Rhythm Origin: atrial Rhythm morphology: fibrillation Ectopy: Ectopy occurance: occasional Ectopy origin: PVCs Intervals: normal Blocks: BBB: Ant brenton QRSTT: QRSTT changes: Yes Result Burt Gallardo MD ECG ORDERABLES Final Result * (ABNORMAL) TROPONIN BASELINE, 5TH GEN (01/11/2025 6:00 PM CDT) TROPONIN T, BASELINE 5TH GEN 44(H) <=10 ng/L 01/11/2025 7:37 PM CDT [facility] Blood Collection / Unknown 01/11/2025 6:00 PM CDT 01/11/2025 7:09 PM CDT Narrative [facility] - 01/11/2025 7:37 PM CDT Troponin elevated. Result Burt Gallardo MD CHEMISTRY ORDERABLES Final Resu lt Performing Organization Address City/[facility]/ZIP Co de Phone Number [facility] CLIA # [id number] [address] [place] [phone] * LACTIC ACID (01/11/2025 6:00 PM CDT) LACTIC ACID 0.8 <=2.0 mmol/L 01/11/2025 7:31 PM CDT [facility] Blood BLOOD SPECIMEN / Unknown Collection / Unknown 01/11/2025 6:00 PM CDT 01/11/2025 7:09 PM CDT us Jayson Gallardo MD CHEMISTRY ORDERABLES Final Resu lt [facility] CLIA # [id number] [address] [place] [phone] * PTT (01/11/2025 6:00 PM CDT) PTT 28.1 25.1 - 35.4 seconds 01/11/2025 7:21 PM CDT [facility] Blood Collection / Unknown 01/11/2025 6:00 PM CDT 01/11/2025 7:09 PM CDT us Jayson Gallardo MD HEMATOLOGY ORDERABLES Final Res ult Performing Organization Address [facility] Phone Number [facility] # [id number] [address] [place] [phone] * SEDIMENTATION RATE (01/11/2025 6:00 PM CDT) ESR (SEDIMENTATION RATE) 7 0 - 30 mm/Hr 01/11/2025 7:17 PM CDT [facility] Blood Collection / Unknown 01/11/2025 6:00 PM CDT 01/11/2025 7:09 PM CDT Narrative [facility] - 01/11/2025 7:17 PM CDT Tube Lot: #[id number] Exp Date: 03/22/2026 QC1 LOT [id number] EXP.03/27/2025 QC2 LOT [id number] EXP.03/27/2025 us Jayson Gallardo MD HEMATOLOGY ORDERABLES Final Res ult Performing Organization Address [facility] Co de Phone Number [facility] # [id number] [address] [place] [phone] * PROTIME-INR (01/11/2025 6:00 PM CDT) Only the most recent of2 resultswithin the time period is included. PROTIME 14.1 12.1 - 14.3 Seconds 01/11/2025 7:21 PM CDT [facility] INR 1.1 0.9 - 1.1 01/11/2025 7:21 PM CDT [facility] Blood Collection / Unknown 01/11/2025 6:00 PM CDT 01/11/2025 7:09 PM CDT us Jayson Gallardo MD HEMATOLOGY ORDERABLES Final Res ult [facility] CLIA # [id number] [address] [place] [address] * D-DIMER (01/11/2025 6:00 PM CDT) D-DIMER QUANT 0.38 <0.50 ug/mL FEU 01/11/2025 7:30 PM CDT [facility] Blood Collection / Unknown 01/11/2025 6:00 PM CDT 01/11/2025 7:09 PM CDT Narrative [facility] - 01/11/2025 7:30 PM CDT D-Dimer assay cutoff value for exclusion of DVT and/or PE is <0.50 ug/mL FEU. As D-Dimer levels increase naturally with age, age stratification for patients over 50 is potentially more appropriate in determining whether a patient should undergo further evaluation for DVT and/or PE than a general cutoff of 0.50 ug/mL FEU. Clinical consideration is recommended. Age Stratified Cutoff Values: 50-60 years: 0.50-0.60 ug/mL FEU 61-70 years: 0.61-0.70 ug/mL FEU 71-80 years: 0.71-0.80 ug/mL FEU us Jayson Gallardo MD HEMATOLOGY ORDERABLES Final Res ult Performing Organization Address City/[facility]/ZIP Co de Phone Number [facility] CLIA # [id number] [address] [place] [phone] * C-REACTIVE PROTEIN (01/11/2025 6:00 PM CDT) CRP <3.0 <5.0 mg/L 01/11/2025 7:3 7 PM CDT [facility] Blood Collection / Unknown 01/11/2025 6:00 PM CDT 01/11/2025 7:09 PM CDT us Jayson Gallardo MD CHEMISTRY ORDERABLES Final Resu lt Performing Organization Address [facility] Co de Phone Number [facility] CLIA # [id number] [address] [place] [phone] * TSH (01/11/2025 6:00 PM CDT) TSH 2.72 0.27 - 4.20 uIU/mL 01/11/2025 7:37 PM CDT [facility] Blood Collection / Unknown 01/11/2025 6:00 PM CDT 01/11/2025 7:09 PM CDT us Jayson Gallardo MD CHEMISTRY ORDERABLES Final Resu lt Performing Organization Address [facility] de Phone Number [facility] [facility] # [id number] [address] [place] [id number] * (ABNORMAL) BRAIN NATRIURETIC PEPTIDE, BNP OR PROBNP (01/11/2025 6:00 PM CDT) PROBNP, N TERMINAL 2,578(H) 0 - 450 pg/mL 01/11/2025 7:37 PM CDT [facility] Comment: INTERPRETIVE COMMENT based on diagnosis: Diagnostic NT pro-BNP cutoffs for Heart Failure in the absence of renal failure is suggested for the following ranges <75 years: <125 pg/mL >=75 years: <450 pg/mL Exclusionary rule out cut-point for Acute Decompensated Heart Failure(ADHF) All ages: <300 pg/mL Diagnostic NT pro-BNP cutoffs for Acute Decompensated Heart Failure(ADHF) in the absence of renal failure is suggested for the following ages <50 years: > 450 pg/mL 50-75 years: > 900 pg/mL >75 years: >1800 pg/mL Blood Collection / Unknown 01/11/2025 6:00 PM CDT 01/11/2025 7:09 PM CDT us Jayson Gallardo MD CHEMISTRY ORDERABLES Final Resu lt [facility] # [id number] [address] [place] [id number] * MAGNESIUM LEVEL (01/11/2025 6:00 PM CDT) MAGNESIUM 1.8 1.6 - 2.4 mg/dL 01/11/2025 7:37 PM CDT [facility] Blood Collection / Unknown 01/11/2025 6:00 PM CDT 01/11/2025 7:09 PM CDT us Jayson Gallardo MD CHEMISTRY ORDERABLES Final Resu lt Performing Organization Address [facility] Co de Phone Number [facility] # [id number] [address] [place] [phone] * (ABNORMAL) IRON, TIBC, AND PERCENT SATURATION (12/06/2024 11:45 AM CDT) Pathologist [facility] [place] IRON 46(L) 50 - 170 ug/dL 12/06/2024 4:02 PM CDT [facility] [place] TIBC 371 250 - 450 ug/dL 12/06/2024 4:02 PM CDT [facility] [place] IRON % SATURATION 12(L) 14 - 33 % 12/06/2024 4:02 PM CDT [facility] Blood Venipuncture / Unknown 12/06/2024 11:45 AM CDT 12/06/2024 3:01 PM CDT us Alison Ramos MD CHEMISTRY ORDERABLES F inal Result Performing Organization Address City/[facility]/ZIP Co de Phone Number [facility] [place] [id number] [address] [place] [address] * BASIC METABOLIC PANEL (12/06/2024 11:45 AM CDT) SODIUM 136 136 - 145 mmol/L 12/06/2024 3:57 PM CDT [facility] POTASSIUM 4.8 3.2 - 4.9 mmol/L 12/06/2024 3:57 PM T [facility] [place] CHLORIDE 101 98 - 107 mmol/L 12/06/2024 3:57 PM T [facility] CO2 28 22 - 29 mmol/L 12/06/2024 3:57 PM T [facility] [place] CALCIUM 9.4 8.4 - 10.5 mg/dL 12/06/2024 3:57 PM T [facility] [place] BUN 20 6 - 24 mg/dL 12/06/2024 3:57 PM [facility] [place] CREATININE 1.15 0.50 - 1.20 mg/dL 12/06/2024 3:57 PM T [facility] [place] Comment:The GFR result is no t clinically significant on patients <18 or >70 years of age. GLUCOSE 97 70 - 115 mg/dL 12/06/2024 3:57 PM T [facility] [place] GFR 48 mL/min/1.7 3 sq meter 12/06/2024 3:57 PM [facility] Comment:eGFR calculated with 2020 CKD-EPI equation. Vegetarian diet, extremely high or low muscle mass, and may affect results. Cystatin C with Glomerular Filtration Rate is a suitable alternative for these patients. ANION GAP 7 7 - 16 mmol/L 12/06/2024 3:57 PM T [facility] [place] Blood Venipuncture / Unknown 12/06/2024 11:45 AM CDT 12/06/2024 3:01 PM CDT us Alison Ramos MD CHEMISTRY ORDERABLES F inal Result [email or web address] [place] [id number] [address] [facility] [place] [address] * LIPID PANEL (11/22/2024) ABSTRACTED CHOLESTEROL 163 ABSTRACTED TRIGLYCERIDE 233 ABSTRACTED HDL 58 ABSTRACTED LDL CALCULATED 58 Blood 11/22/2024 us Abstract Provider CHEMISTRY ORDERABLES Final Res ult * HEMOGLOBIN A1C (08/09/2024 8:27 AM CDT) ABSTRACTED HGB A1C 5.6 % [facility] Blood us Abstract Provider CHEMISTRY ORDERABLES Edited Re sult - Final [facility] from Last 3 Months or Most Recently Relevant to Health Maintenance Insurance MEDICAID [facility] RX [employer] (INTERNAL) [facility] Plans RX INFOCROSSING Medicaid RX [employer] Medicare Part D Advance Directives For more information, please contact: [phone] * Full Code (Latest Code Status on File) Date Activated Date Inactivated Comments 01/12/2025 4:07 AM 01/14/2025 2:55 PM * Default Full Code - Needs Discussion Date Activated Date Inactivated Comments 07/18/2024 4:04 AM 07/20/2024 4:18 PM Care Teams Shear Tender Relationship Specialty Start Date End Date Alison Ramos MD [address] [place] [address] [place] [id number] PCP - General Internal Medicine 07/21/24
[2025-02-23] MEDS: alum-mag-hydroxide-sime 30 mL UDC PO (23:16)
[2025-02-23 23:19] VITALS: BP 116/69; PULSE 88; O2SAT 94
--- NOTE | 2025-02-23 23:51 | W.ED.GENADLT ---
HPI - General Adult General: Chief complaint: General Medical Stated complaint: General Time Seen by Provider: 02/23/25 22:45 History of Present Illness: 84-year-old female extensive past medical history significant for heart failure, COPD, CAD with HI in the past, atrial fibrillation, severe mitral regurg, GI bleed in the past requiring clipping of a vessel at [place] earlier this year, presenting to the emergency department with elevated blood pressure reading at home of 180/110, patient also reporting mild abdominal pain that started this afternoon without associated vomiting hematemesis nausea diarrhea constipation urinary symptoms or fever. No associated chest pain or palpitations, when EMS arrived at the house patient was sleeping and had a transient low blood pressure of 90s over 50s which improved without treatment, brought her in due to the abnormal blood pressure and given the recent abdominal related history wanted to assess to see if she was bleeding severely again. He reports that she is on iron supplements and therefore her stool is always somewhat dark, no recent changes to the consistency or color of her stool. Related Data Home Medications ?Medication ?Instructions ?Recorded ?Confirmed gabapentin 600 mg tablet 600 mg PO TID 04/06/19 01/25/25 levothyroxine 88 mcg tablet 88 mcg PO QAM 04/06/19 01/25/25 loratadine 10 mg tablet 10 mg PO DAILY Allergy Symptoms 04/06/19 01/25/25 mirabegron 50 mg tablet,extended 50 mg PO QAM 04/06/19 01/25/25 release 24 hr (Myrbetriq) cholecalciferol (vitamin D3) 1,250 50,000 unit PO Q7D 05/11/19 01/25/25 mcg (50,000 unit) capsule trazodone 50 mg tablet 25 - 50 mg PO BEDTIME PRN Sleep 05/11/19 01/25/25 montelukast 10 mg tablet 10 mg PO QAM 01/14/22 01/25/25 donepezil 10 mg tablet 10 mg PO QAM 11/08/22 01/25/25 amlodipine 10 mg tablet 10 mg PO DAILY 07/08/23 01/25/25 digoxin 125 mcg (0.125 mg) tablet 125 mcg PO QAM 07/08/23 01/25/25 empagliflozin 10 mg tablet 10 mg PO QAM 07/08/23 01/25/25 (Jardiance) potassium chloride 20 mEq 20 meq PO DAILY 07/08/23 01/25/25 tablet,extended release tizanidine 2 mg tablet 2 mg PO BID 07/08/23 01/25/25 duloxetine 60 mg capsule,delayed 60 mg PO QAM 11/21/24 01/25/25 release nystatin 100,000 unit/gram topical 1 applic topical TID 11/21/24 01/25/25 cream pantoprazole 40 mg tablet,delayed 40 mg PO Q12H 11/21/24 01/25/25 release hydrocodone 10 mg-acetaminophen 1 tab PO TID PRN Pain 12/01/24 01/25/25 325 mg tablet lisinopril 10 mg tablet 10 mg PO BID 12/01/24 01/25/25 clopidogrel 75 mg tablet 75 mg PO DAILY 01/25/25 01/25/25 ferrous sulfate 325 mg (65 mg 325 mg PO DAILY 01/25/25 01/25/25 iron) tablet (Iron (ferrous sulfate)) sucralfate 1 gram tablet 1 g PO QID 01/25/25 01/25/25 Previous Rx's ?Medication ?Instructions ?Recorded apixaban 5 mg tablet (Eliquis) 5 mg PO BID #60 tabs 11/25/24 atorvastatin 40 mg tablet 20 mg (1/2 x 40 mg) PO BEDTIME #30 11/25/24 tabs metoprolol tartrate 25 mg tablet 25 mg PO BID@0900,2100 #60 tabs 11/25/24 acetaminophen 325 mg tablet 650 mg (2 x 325 mg) PO Q4H PRN 12/03/24 Mild Pain Or Increase Temp #1 tab albuterol sulfate 90 mcg/actuation 2 inh inhalation Q4H PRN shortness 12/03/24 aerosol inhaler (Ventolin HFA) of breath or wheezing #8.5 grams dexamethasone 2 mg tablet 2 mg PO DAILY #3 tabs 12/03/24 furosemide 20 mg tablet 20 mg PO QAM weight gain of 5 lbs 01/10/25 #10 tabs nitrofurantoin 100 mg PO BID 5 days #10 caps 02/24/25 monohydrate/macrocrystals 100 mg capsule (Macrobid) Allergies Allergy/AdvReac Type Severity Reaction Status Date / Time No Known Allergies Allergy Verified 01/10/25 12:53 PFSH ED PFSH: Medical History Severe mitral regurgitation Anxiety and depression Upper GI bleed Dyspnea on exertion Peripheral edema Lymphedema Venous stasis dermatitis Hx of fracture of ankle Arthritis DJD (degenerative joint disease) Abdominal hernia Sliding hiatal hernia Hypothyroidism Insomnia Gastroenteritis DDD (degenerative disc disease) Restless legs Pulmonary nodule Diverticulitis Hx of fracture of tibia Dementia Age related osteoporosis Mixed incontinence History of colon polyps COVID Atrial fibrillation with RVR COPD (chronic obstructive pulmonary disease) Anal fissure Chronic back pain Lymphedema of both lower extremities Mixed hyperlipidemia Chronic systolic (congestive) heart failure Essential hypertension Surgical History History of amputation of toe Hx of blepharoplasty History of bladder surgery History of colonoscopy years ago History of hysterectomy Family History Sister Stroke CAD (coronary artery disease) HI @ 75 Hypertension Brother Cancer Father Cancer Social History Smoking and tobacco/nicotine status: former use of tobacco/nicotine Second hand smoke exposure: No Alcohol intake: never Substance/Drug Use: never Adopted: No Caregiver/support person: No Lives independently: Yes Household members: spouse Housing: House Marital status: service: No Current occupational status: retired Do you think of yourself as: Straight/Heterosexual Current gender identity: Female Physical Exam Narrative: EXAM NARRATIVE: Gen: A&Ox2, no acute distress, nontoxic appearing HEENT: Normocephalic, atraumatic, no scleral icterus, external ears normal, moist mucous membranes Neck: Supple, full range of motion, no observable masses Lungs: No Respiratory distress, Lungs clear to auscultation bilaterally no rales, rhonchi, wheezing CV: Regular rate with irregular rhythm, no murmur, no pitting edema to lower extremities bilaterally Abdomen: Soft, nondistended, nontender to palpation MSK: No joint swelling, FROM all 4 extremities Skin: No rashes, petechiae, lesions. Normal color per patient. Neuro: Alert and oriented, no slurred speech, sensation and strength grossly intact all 4 extremities Psych: Appropriate for situation. Course Reevaluation(s): Reevaluation #1: Patient monitored in the ED, currently feels well, blood pressure generally unremarkable while in the ER, workup showing atrial fibrillation which patient has a known history of as well as evidence of a UTI for which she will be treated for, stable for discharge with Rx for antibiotics and PCP follow-up recommendations, return precautions discussed with patient as well as at the bedside prior to discharge Time: 02:01 Vital Signs: Vital signs: Vital Signs Temperature 97.8 F 02/23/25 22:47 Pulse Rate 83 02/24/25 01:27 Respiratory Rate 18 02/24/25 01:27 Blood Pressure 148/83 02/24/25 01:27 Pulse Oximetry 96 02/24/25 01:27 Oxygen Delivery Me thod Room Air 02/24/25 00:24 MDM - General Adult Medical Decision Making 84-year-old female with an extensive medical history significant for COPD CHF GI bleed mitral regurgitation atrial fibrillation and CAD, presenting to the emergency department with elevated blood pressure reading at home which has spontaneously improved and mild nonspecific abdominal discomfort since noon today without associated vomiting diarrhea urinary symptoms or obvious evidence of active GI bleed. Patient is on iron supplements and has a dark stool at baseline without any recent changes per , plan for labs to assess for acute blood loss anemia, rule out UTI, cardiac screen given patient with chronic A-fib and currently in A-fib to rule out any NSTEMI/ACS, reassess for disposition. Lab Data Labs showing no anemia or leukocytosis, normal kidney function, normal electrolytes, troponin mildly elevated but stable on repeat within normal delta, urinalysis suggestive of UTI with elevated leuk esterase white blood cells and bacteria in the urine with negative nitrates 02/23/25 23:53 02/23/25 23:53 Laboratory Results WBC 6.48 10^3/uL (3.29-11.43) 02/23/25 23:53 RBC 3.89 10^6/uL (3.85-5.65) 02/23/25 23:53 Hgb 11.30 g/dL (11.27-16.99) 02/23/25 23:53 Hct 34.7 % (36-47) L 02/23/25 23:53 MCV 89.2 fl (85-98) 02/23/25 23:53 MCH 29.0 pg (27-33) 02/23/25 23:53 MCHC 32.6 g/dL (30-55) 02/23/25 23:53 RDW 16.4 % (12.1-15.1) H 02/23/25 23:53 Plt Count 192 10^3/cmm (157-399) 02/23/25 23:53 MPV 9.2 fL (7.4-10.4) 02/23/25 23:53 Neut % (Auto) 73.1 % 02/23/25 23:53 Lymph % (Auto) 12.2 % 02/23/25 23:53 Hyde % (Auto) 11.6 % 02/23/25 23:53 Eos % (Auto) 2.5 % 02/23/25 23:53 Baso % (Auto) 0.3 % 02/23/25 23:53 Neut # (Auto) 4.74 10^3/uL (1.8-7.7) 02/23/25 23:53 Lymph # (Auto) 0.8 10^3/uL (0.8-4.8) 02/23/25 23:53 Hyde # (Auto) 0.8 10^3/uL (0.2-0.9) 02/23/25 23:53 Eos # (Auto) 0.2 10^3/uL (0.0-0.8) 02/23/25 23:53 Baso # (Auto) 0.0 10^3/uL (0.0-0.1) 02/23/25 23:53 Nucleated RBC % (auto) 0 % 02/23/25 23:53 Nucleated RBCs # 0.0 /100WBC 02/23/25 23:53 Sodium 139 mmol/L (136-145) 02/23/25 23:53 Potassium 3.5 mmol/L (3.5-5.1) 02/23/25 23:53 Chloride 102 mmol/L (98-107) 02/23/25 23:53 Carbon Dioxide 26 mmol/L (22-29) 02/23/25 23:53 Anion Gap 14.5 (5-19) 02/23/25 23:53 BUN 10 mg/dL (8-23) 02/23/25 23:53 Creatinine 0.7 mg/dL (0.5-0.9) 02/23/25 23:53 GFR Calculation Not Reportable 02/23/25 23:53 Glucose 111 mg/dL (65-115) 02/23/25 23:53 Calculated Osmolality 288 mOsm/kg (285-295) 02/23/25 23:53 Calcium 9.7 mg/dL (8.5-10.5) 02/23/25 23:53 Total Bilirubin 0.7 mg/dL (0.15-1.2) 02/23/25 23:53 AST 14 U/L (0-32) 02/23/25 23:53 ALT 6 U/L (0-33) 02/23/25 23:53 Alkaline Phosphatase 80 U/L (35-105) 02/23/25 23:53 Troponin T Baseline 41 ng/L (0-10) H 02/23/25 23:53 Troponin T 120 Minute 37.30 ng/L (0-10) H 02/24/25 00:54 Delta Troponin T -3.70 ABS# (0-10) L 02/24/25 00:54 Total Protein 6.0 g/dL (6.6-8.7) L 02/23/25 23:53 Albumin 4.0 g/dL (3.5-5.2) 02/23/25 23:53 Globulin 2.0 g/dL (1.3-4.6) 02/23/25 23:53 Lipase 19 U/L (13-60) 02/23/25 23:53 Urine Color Yellow (Yellow) 02/24/25 00:34 Urine Appearance Cloudy (CLEAR) A 02/24/25 00:34 Urine pH 5.5 (5-7) 02/24/25 00:34 Ur Specific Early Branch 1.022 (1.005-1.030) 02/24/25 00:34 Urine Protein 1+ (Negative) A 02/24/25 00:34 Urine Glucose (UA) Negative (Normal) 02/24/25 00:34 Urine Ketones Trace (Negative) 02/24/25 00:34 Urine Blood Negative (Negative) 02/24/25 00:34 Urine Nitrate Negative (Negative) 02/24/25 00:34 Urine Bilirubin Negative (Negative) 02/24/25 00:34 Urine Urobilinogen 1.0 mg/dL (Negative) 02/24/25 00:34 Ur Leukocyte Esterase 2+ (Negative) A 02/24/25 00:34 Urine RBC 3-5 /hpf (0-2) 02/24/25 00:34 Urine WBC 51-100 /hpf (0-5) H 02/24/25 00:34 Ur Squamous Epith Cells 6-10 /hpf (0-5) 02/24/25 00:34 Amorphous Sediment Not Reportable 02/24/25 00:34 Urine Bacteria 2+ /hpf (NONE) H 02/24/25 00:34 Hyaline Casts 6.17 /lpf 02/24/25 00:34 No radiology studies performed this visit EKG Data EKG 1: I personally reviewed and interpreted this EKG as follows: EKG interpretation date: 02/23/25 EKG interpretation time: 23:55 Interpretation: Atrial fibrillation 82 bpm, no STEMI, left anterior fascicular block, QTc 440 ms Discharge Plan Discharge Patient Disposition: Home Clinical Impression: UTI (urinary tract infection), Labile blood pressure, Atrial fibrillation Condition: Stable Prescriptions: New nitrofurantoin monohyd/m-cryst [Macrobid] 100 mg capsule 100 mg PO BID 5 Days Qty: 10 0RF Rx Instructions: must administer with a meal/food No Action levothyroxine 88 mcg tablet 88 mcg PO QAM gabapentin 600 mg tablet 600 mg PO TID loratadine 10 mg tablet 10 mg PO DAILY Myrbetriq 50 mg tablet extended release 24 hr 50 mg PO QAM furosemide 20 mg tablet 20 mg PO QAM Qty: 10 0RF trazodone 50 mg Tablet 25 - 50 mg PO BEDTIME PRN (Reason: Sleep) cholecalciferol (vitamin D3) 1,250 mcg (50,000 unit) capsule 50,000 unit PO Q7D Rx Instructions: (ON SUNDAYS) tizanidine 2 mg tablet 2 mg PO BID amlodipine 10 mg tablet 10 mg PO DAILY Jardiance 10 mg tablet 10 mg PO QAM digoxin 125 mcg (0.125 mg) tablet 125 mcg PO QAM potassium chloride 20 mEq tablet extended release 20 meq PO DAILY sucralfate 1 gram Tablet 1 g PO QID ferrous sulfate [Iron (ferrous sulfate)] 325 mg (65 mg iron) Tablet 325 mg PO DAILY clopidogrel 75 mg tablet 75 mg PO DAILY Rx Instructions: TAKE ONE TABLET BY MOUTH DAILY montelukast 10 mg Tablet 10 mg PO QAM donepezil 10 mg tablet 10 mg PO QAM duloxetine 60 mg capsule,delayed release(DR/EC) 60 mg PO QAM pantoprazole 40 mg tablet,delayed release (DR/EC) 40 mg PO Q12H nystatin 100,000 unit/gram cream 1 applic topical TID atorvastatin 40 mg Tablet 20 mg PO BEDTIME Qty: 30 0RF metoprolol tartrate 25 mg Tablet 25 mg PO BID@0900,2100 Qty: 60 0RF Eliquis 5 mg tablet 5 mg PO BID Qty: 60 0RF hydrocodone-acetaminophen 10-325 mg tablet 1 tab PO TID PRN (Reason: Pain) lisinopril 10 mg tablet 10 mg PO BID acetaminophen 325 mg Tablet 650 mg PO Q4H PRN (Reason: Mild Pain Or Increase Temp) Qty: 1 0RF dexamethasone 2 mg tablet 2 mg PO DAILY Qty: 3 0RF albuterol sulfate [Ventolin HFA] 90 mcg/actuation HFA aerosol inhaler 2 inh inhalation Q4H PRN (Reason: shortness of breath or wheezing) Qty: 8.5 0RF Discharge Orders: Discharge ED (Routine); Ordered 02/24/25 Ordered By: Jameel Chowdhury Referrals: Alison Ramos MD [Primary Care Provider, Internal Medicine] Patient Instructions: Patient Portal & Jos[facility]at Instructions, Urinary Tract Infection in Older Adults (ED), A-fib (Atrial Fibrillation) (ED) Print Language: [place] Citizen Coding Level of Care Code ED Silk Worker for Juan F Mckinney
[2025-02-23 23:59] LABS: Hematocrit 34.7 % (36-47); Hemoglobin 11.30 g/dL (11.27-16.99); Mean Corpuscular HGB Conc 32.6 g/dL (30-55); Mean Corpuscular Hemoglobin 29.0 pg (27-33); Mean Corpuscular Volume 89.2 fl (85-98); Nucleated Red Blood Cells % 0 %; Platelet Count 192 10^3/cmm (157-399); Red Blood Count 3.89 10^6/uL (3.85-5.65); White Blood Count 6.48 10^3/uL (3.29-11.43)
[2025-02-24 00:18] LABS: Troponin(5th) Baseline 41 ng/L (0-10)
[2025-02-24 00:21] LABS: Alanine Aminotransferase 6 U/L (0-33); Albumin Level 4.0 g/dL (3.5-5.2); Alkaline Phosphatase 80 U/L (35-105); Anion Gap 14.5 (5-19); Aspartate Amino Transferase 14 U/L (0-32); Blood Urea Nitrogen 10 mg/dL (8-23); Calcium 9.7 mg/dL (8.5-10.5); Carbon Dioxide 26 mmol/L (22-29); Chloride 102 mmol/L (98-107); Globulin 2.0 g/dL (1.3-4.6); Glucose 111 mg/dL (65-115); Lipase 19 U/L (13-60); Osmolality Calculated 288 mOsm/kg (285-295); Potassium 3.5 mmol/L (3.5-5.1); Sodium 139 mmol/L (136-145); Total Protein 6.0 g/dL (6.6-8.7)
[2025-02-24 00:24] VITALS: BP 131/82; PULSE 85; O2SAT 97
[2025-02-24 00:50] LABS: Glucose Urine UA Negative (Normal); Nitrate Urine Negative (Negative); Specific Gravity, Urine 1.022 (1.005-1.030)
--- NOTE | 2025-02-24 01:24 | PC.NURSE ---
Bedside report done with [place] WHALEN.
[2025-02-24 01:27] VITALS: BP 148/83; PULSE 83; RESP 18; O2SAT 96
[2025-02-24 02:35] VITALS: BP 144/97; PULSE 70; O2SAT 95
== END 2025-02-24 02:38 | disposition home or self-care (01) ==
PROVIDERS: Emergency Provider Student in an Organized Health Care Education/Training Program; PCP Internal Medicine
DX: N39.0 Urinary tract infection, site not specified (principal); R03.0 Elevated blood-pressure reading, without diagnosis of hypertension; I48.91 Unspecified atrial fibrillation; Z79.02 Long term (current) use of antithrombotics/antiplatelets; Z79.01 Long term (current) use of anticoagulants; Z87.891 Personal history of nicotine dependence; E78.2 Mixed hyperlipidemia; J44.9 Chronic obstructive pulmonary disease, unspecified; I11.0 Hypertensive heart disease with heart failure; I50.22 Chronic systolic (congestive) heart failure
CPT/HCPCS: 36415; 80053; 81001; 83690; 84484; 85025; 87086; 93005; 96374; 99284; J3490; J9999

== ENCOUNTER 2025-03-14 10:13 | Emergency (ER) | payer MEDICARE, MEDICAID, SELFPAY ==
--- OUTSIDE RECORDS SUMMARY | 2025-03-08 10:30 | XMS_ITS | Encounter Summary ---
Author Organization [facility] Address [address] [place] [address] Care Team Providers Care Physical Education Instructor Name Role Phone Alison Ramos MD Primary Care Provider Reason for Visit * Reason Comments Follow Up Presents for routine follow up and medication refill. Encounter Details Date Type Department Care Team (Latest Contact Info) Description 03/08/2025 10:30 AM OPERATIONS SUPERVISOR CHEMICAL CLEANING Office Visit [facility] Primary [facility] [place] [address] [address] [place] [address] [place] [address] Alison Ramos MD [address] [place] [phone] Vitamin B12 deficiency (non anemic) (Primary Dx); Primary osteoarthritis involving multiple joints; Other fatigue Social History Tobacco Use Types Packs/Day Years [...] worry about transportation for future doctor visits, picking tech medication, etc.? No 2024 Housing Stability Answer [...] on file Legal Sex Female 11:31 PM OPERATIONS SUPERVISOR [employer]ANING Gender Identity Not on file Sexual Orientation Not on file documented as of this encounter Last Filed Vital Signs Vital Sign Reading Time Taken Comments Blood Pressure 136/86 03/08/2025 10:17 AM OPERATIONS SUPERVISOR [employer]ANING Pulse 85 03/08/2025 10:17 AM OPERATIONS SUPERVISOR [employer]ANING Temperature 36.1 C (97 F) 03/08/2025 10:17 AM OPERATIONS SUPERVISOR [employer] CLEANING Respiratory Rate 18 03/08/2025 10:17 AM OPERATIONS SUPERVISOR [employer]ANING Oxygen Saturation 98% 03/08/2025 10:17 AM OPERATIONS SUPERVISOR [employer] CLEANING Inhaled Oxygen Concentration - - Weight 64.4 kg (142 lb) 03/08/2025 10:17 AM OPERATIONS SUPERVISOR [employer]ANING Height 162.6 cm (5' 4 ) 03/08/2025 10:17 AM OPERATIONS SUPERVISOR [employer] CLEANING Body Mass Index 24.37 03/08/2025 10:17 AM OPERATIONS SUPERVISOR [employer]ANING documented in this encounter Plan of Treatment Upcoming Encounters Date Type Department Care Team (Late st Contact Info) Description 04/07/2025 10:00 AM OPERATIONS SUPERVISOR [employer]ANING Office Visit [facility] Primary Care [place] [address] [address] [place] [address] Alison Ramos MD [address] [place] [phone] 05/08/2025 9:30 AM OPERATIONS SUPERVISOR [employer]ANING Office Visit [facility] Primary Care [place] [address] [place] [address] [place] [phone] Alison [facility] MD [address] [facility] [address] [place] [phone] documented as of this encounter Visit Diagnoses Diagnosis Vitamin B12 deficiency (non anemic)- Primary Other B-complex deficiencies Primary osteoarthritis involving multiple joints Other fatigue documented in this encounter Administered Medications Inactive Administered Medications - up to 3 most recent administrations Medication Order MAR Action Action Date Dose Rate Site cyanocobalamin (VITAMIN B-12) injection 1,000 mcg 1,000 mcg, IM, ONE TIME ONLY, 1 dose, On Thu03/08/25 at 1130, RoutineIndications:Other fatigue Given 03/08/2025 11:43 AM OPERATIONS SUPERVISOR [employer]ANING 1,000 mcg Arm, Left Upper documented in this encounter Care Teams Physical Education Instructor Relationship Specialty Start Date End Date Alison Ramos MD [address] [facility] [address] [place] [phone] PCP - General Internal Medicine 07/21/24 documented as of this encounter
[2025-03-14 10:16] VITALS: BP 195/78; PULSE 118; RESP 17; TEMP 36.8; O2SAT 93; BMI 23.1
--- OUTSIDE RECORDS SUMMARY | 2025-03-14 10:18 | XMS_ITS | Encounter Summary ---
Author Organization [facility] Address [address] [place] [address] Care Team Providers Care Aircraft Instrument Engineer Name Role Phone Alison Ramos MD Primary Care Provider Encounter Details Date Type Department Care Team (Late Contact Info) Description 12/31/2023 Lab Requisition [facility] Laboratory Services [address] [place] [address] [place] [phone] Alison Ramos MD [address] [place] [phone] Social History Tobacco Use Types Packs/Day Years [...] on file Legal Sex Female 11:31 PM CASINO CAGE MANAGER Gender Identity Not on file Sexual Orientation Not on file documented as of this encounter Plan of Treatment Upcoming Encounters Date Type Department Care Team (Late st Contact Info) Description 04/07/2025 10:00 AM CASINO CAGE MANAGER Office Visit [facility] Primary Care [place] [address] [place] [address] [place] [phone] Alison Ramos MD [address] [place] [phone] 05/08/2025 9:30 AM CASINO CAGE MANAGER Office Visit [facility] Primary Care [place] [address] [place] [address] [place] [phone] Alison Ramos MD [address] [place] [phone] documented as of this encounter Procedures Procedure Name Priority Date/Time Associated Diagnosis Comments RHEUMATOID FACTOR Routine 12/31/2023 12: 00 AM CDT ROBERT SCREEN W/REFLEX Routine 12/31/2023 1 2:00 AM CDT documented in this encounter Results * RHEUMATOID FACTOR (12/31/2023 12:00 AM CDT) RHEUMATOID FACTOR <13 <=30 IU/mL 12/31/2023 8:04 PM CDT [facility] Blood 12/31/2023 12/31/2023 4:2 2 PM CDT Alison Ramos MD CHEMISTRY ORDERABLES F inal Result [facility] [id number] [address] [place] [address] * ROBERT SCREEN W/REFLEX (12/31/2023 12:00 AM CDT) ROBERT SCREEN NEGATIVE NEGATIVE 01/05/2024 2:47 PM CDT [facility] Comment: ROBERT IFA is a first [...] AC-0: Negative International Consensus on ROBERT Patterns (https://doi.org/10.1515/uxmb-6039-9586) For additional information, please refer to http://education.Optimitive/faq/RRH656 (This link is being provided for informational/ educational purposes only.) Blood Collection / Unknown 12/31/2023 12/31/2023 4:22 PM CDT Narrative [facility] 01/05/2024 2:47 PM CDT Performing Organization Information: Site ID: [email or web address] Name: [email or web address] Address: [address] [place] [address] Director: Farrukh Montenegro MD us Alison Ramos MD CHEMISTRY ORDERABLES F inal Result [facility] [phone] documented in this encounter Visit Diagnoses Not on filedocumented in this encounter Additional Health Concerns Infection Onset Date Last Indicated Resolved Time R/O COVID-19 06/17/2024 06/17/2024 06/17/2024 9:17 AM CDT R/O COVID-19 08/26/2024 08/26/2024 08/26/2024 10:2 7 AM CDT documented as of this encounter Care Teams Aircraft Instrument Engineer Relationship Specialty Start Date End Date Alison Ramos MD [address] [place] [address] [address] [place] [phone] PCP - General Internal Medicine 07/21/24 documented as of this encounter
--- OUTSIDE RECORDS SUMMARY | 2025-03-14 10:18 | XMS_ITS | Encounter Summary ---
Author Organization [facility] Address [address] [place] [address] Care Team Providers Care Paint Tester Name Role Phone Alison Ramos MD Primary Care Provider Encounter Details Date Type Department Care Team (Late st Contact Info) Description 03/11/2024 Lab Requisition [facility] Laboratory Services [address] [place] [phone] Alison Ramos MD [address] [place] [phone] Urinary tract infection, site not specified Social [...] on file Legal Sex Female 11:31 PM ROUGHER FOR CEMENT Gender Identity Not on file Sexual Orientation Not on file documented as of this encounter Plan of Treatment Upcoming Encounters Date Type Department Care Team (Late st Contact Info) Description 04/07/2025 10:00 AM ROUGHER FOR CEMENT Office Visit [facility] Primary Care [place] [address] [place] [address] [place] [phone] Alison Ramos MD [address] [place] [phone] 05/08/2025 9:30 AM ROUGHER FOR CEMENT Office Visit [facility] Primary Care [place] [address] [place] [address] [place] [phone] Alison Ramos MD [address] [place] [phone] documented as of this encounter Procedures Procedure Name Priority Date/Time Associated Diagnosis Comments URINE CULTURE Routine 03/11/2024 3:00 PM ROUGHER FOR CEMENT Urinary tract infection, site not specified documented in this encounter Results * URINE CULTURE (03/11/2024 3:00 PM ROUGHER FOR CEMENT) CULTURE Polymicrobial growth consistent with normal urethral alda and/or colonizing bacteria 03/13/2024 7:27 AM ROUGHER FOR CEMENT [facility] Urine Collection / Unknown 03/11/2024 3:00 PM ROUGHER FOR CEMENT 03/11/2024 5:50 PM ROUGHER FOR CEMENT us Alison Ramos MD MICROBIOLOGY - GENERAL ORDERABLES Final Result [facility] [id number] [address] [place] [phone] documented in this encounter Visit Diagnoses Diagnosis Urinary tract infection, site not specified documented in this encounter Additional Health Concerns Infection Onset Date Last Indicated Resolved Time R/O COVID-19 06/17/2024 06/17/2024 06/17/2024 9:17 AM CDT R/O COVID-19 08/26/2024 08/26/2024 08/26/2024 10:2 7 AM CDT documented as of this encounter Care Teams Paint Tester Relationship Specialty Start Date End Date Alison Ramos MD [address] [place] [phone] PCP - General Internal Medicine 07/21/24 documented as of this encounter
--- OUTSIDE RECORDS SUMMARY | 2025-03-14 10:18 | XMS_ITS | Clinical Summary ---
Author Organization [facility] Address [address] [place] [address] Phone Care Team Providers Care Telemarketer Name Role Phone Alison Ramos MD Primary Care Provider Allergies No known active allergies Medications levothyroxine 88 mcg tablet Take 88 mcg by mouth daily in the morning. Active loratadine (CLARITIN) 10 mg tablet Take 10 mg by mouth daily. Active albuterol sulfate HFA 90 mcg/actuation aerosol inhaler Take 2 Puffs by inhalation every 4 hours as needed for Shortness of Breath. Active nitroglycerin (NITROSTAT) 0.4 mg Tablet, Sublingual Place 0.4 mg under tongue every 5 minutes as needed for Chest Pain. Active busPIRone (BUSPAR) 5 mg tablet Take 1 Tablet (5 mg) by mouth 2 times daily for anxiety. 60 Tablet 5 02/01/20 24 10:34 AM PACKING LINE OPERATOR 024 Active lidocaine (Lidoderm) 5 % Adhesive Patch, Medicated Apply 1-2 Patches to affected area daily. 60 Patch 3 024 Active fluticasone propionate (FLONASE) 50 mcg/spray [place], Suspension nasal inhaler Administer 2 Sprays in each nostril daily. 16 Gram 025 Active ferrous sulfate (Iron) 325 mg (65 mg iron) tablet Take 1 Tablet (325 mg) by mouth daily. 90 Tablet 3 025 Active olopatadine 0.7 % Drops Administer 1 Drop in both eyes once to twice daily as needed for allergy. 5 mL 2 025 Active calcium CARBONATE + vitamin D (CALTRATE+D) [...] DAILY FOR SUGAR 30 Tablet 5 Active sucralfate (CARAFATE) 1 gram tablet Take [...] Take 75 mg by mouth daily. Active nystatin (MYCOSTATIN) 100,000 unit/gram Cream APPLY [...] 2 times daily. 60 Tablet 3 Active diclofenac sodium (VOLTAREN) 1 % gel Apply 2 Grams to affected area 3 times daily. To affected joint for arthritis 100 Gram 3 02/07/20 25 10:11 AM PACKING LINE OPERATOR 11/17/2 025 Active Myrbetriq 50 mg Extended Release 24 hour tablet TAKE ONE TABLET BY MOUTH DAILY 30 Tablet 5 Active lisinopriL (PRINIVIL) 10 mg tablet TAKE ONE TABLET BY MOUTH TWICE DAILY 60 Tablet 5 Active HYDROcodone-acet aminophen (NORCO) 10-325 mg TabletIndication s:Primary osteoarthritis involving multiple joints Take 1 Tablet by mouth every 8 hours as needed for Pain, Moderate. Max Daily Amount: 3 Tablets 90 Tablet 03/08/20 25 11:58 AM PACKING LINE OPERATOR Active metoprolol tartrate (LOPRESSOR) 25 mg tablet Take 1 Tablet (25 mg) by mouth 2 times daily. 180 Tablet 2 Active mirabegron (Myrbetriq) 50 mg Extended Release 24 hour tablet Take 50 mg by mouth daily. 2024 Discontinued hydrOXYzine HCL (ATARAX) 25 mg tablet Take 25 mg by mouth daily at bedtime. 2024 Discontinued lisinopriL (PRINIVIL) 10 mg tablet Take 10 mg by mouth 2 times daily. 2024 Discontinued ondansetron (ZOFRAN) 8 mg Tablet Take 8 mg by mouth every 8 hours as needed for Nausea/Emesis. 2024 Discontinued tiZANidine (ZANAFLEX) 2 mg Tablet TAKE ONE TABLET BY MOUTH ONCE DAILY AT BEDTIME NEEDED SPASM 30 Tablet 2 025 2024 Discontinued traZODone (DESYREL) 50 mg tablet TAKE 1/2 TO 1 TABLET BY MOUTH AT BEDTIME NEEDED 30 Tablet 5 025 2024 Discontinued atorvastatin (LIPITOR) 40 mg tablet TAKE 1/2 TABLET BY MOUTH AT BEDTIME 30 Tablet 025 2024 Discontinued metoprolol tartrate (LOPRESSOR) 25 mg tablet TAKE ONE TABLET BY MOUTH TWICE DAILY AT 9AM AND 9PM 60 Tablet 025 2024 Discontinued HYDROcodone-acet aminophen (NORCO) 10-325 mg TabletIndication s:Primary osteoarthritis involving multiple joints Take 1 Tablet by mouth every 8 hours as needed for Pain, Moderate. Max Daily Amount: 3 Tablets 90 Tablet 02/07/20 25 10:11 AM PACKING LINE OPERATOR 025 2024 Discontinued(R eorder) Ensure MAX Protein Liquid Take 330 mL by mouth 2 times daily. for treatment of malnutrition in patient with high protein needs (elderly, BMI greater than 30, diabetes, wound) 13156 mL 3 025 2024 metoprolol tartrate (LOPRESSOR) 25 mg tablet TAKE ONE TABLET BY MOUTH TWICE DAILY AT 9AM AND 9PM 60 Tablet 025 2024 Discontinued(R eorder) Hospital, Clinic, or Other Facility Administered Medication Ordered Dose Route Frequency Start Date End Date Status cyanocobalamin (VITAMIN B-12) injection 1,000 mcgIndications:Other fatigue 1000 mcg IM ONE TIME ONLY 03/08/2025 03/08/2025 Ended Active Problems Problem Noted Date Diagnosed [...] Osteoporosis 01/12/2025 Coronary artery disease invo lving p[place]enta coronary artery of [place] heart without angina pectoris 01/12/2025 Chronic a-fib [...] Encounters Date Type Department Care Team Description 03/08/2025 10:30 AM PACKING LINE OPERATOR Office Visit [facility] [place] [address] [place] [address] [place] [address] Alison Ramos MD Vitamin B12 deficiency (non anemic) (Primary Dx); Primary osteoarthritis involving multiple joints; Other fatigue 03/01/2025 Telephone [facility] [place] [address] [place] [address] [place] [address] Alison Ramos MD possible duplicates 03/01/2025 Refill [facility] [place] [address] [place] [address] [place] [address] Alison Ramos MD 03/01/2025 Refill [facility] [place] [address] [place] [address] [place] [address] Alison Ramos MD 02/10/2025 Orders Only [facility] [place] [address] [place] [address] [place] [address] Provider, Abstract 02/06/2025 10:45 AM PACKING LINE OPERATOR Office Visit [facility] [place] [address] [place] [address] [place] [address] Alison Ramos MD Vitamin B12 deficiency (non anemic) (Primary Dx); Primary osteoarthritis involving multiple joints; Duodenal ulcer; Anticoagulated; Paroxysmal A-fib ([facility]/HCC); Type 2 diabetes mellitus with hyperosmolarity without coma, unspecified whether senior care insulin use ([facility]); Nonrheumatic mitral valve regurgitation; Primary hypertension; ASHD (arteriosclerotic heart disease); 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 (CMS/HCC); Degenerative joint disease of cervical and lumbar spine 01/27/2025 Refill [facility] [place] [facility] [address] [facility] [address] [facility] [place] [address] Alison Ramos MD 01/25/2025 Refill [facility] [place] [address] [facility] [address] [place] [address] Alison Ramos MD 01/18/2025 External Device Data STL ABSTRACTION Provider, Abstract 01/18/2025 External Device Data STL ABSTRACTION Provider, Abstract 01/18/2025 Orders Only [facility] [address] [place] [address] Provider, Abstract 01/18/2025 Abstract [facility] [address] [place] [address] Provider, Abstract 01/17/2025 External Device Data STL ABSTRACTION Provider, Abstract 01/12/2025 1:47 AM CDT - 01/14/2025 12:50 PM CDT Hospital Encounter [facility] [address] [facility] [address] [place] [address] Fritz Hodge DO Sundaram, Vignesh, MD [place], Hari Krishna, MD Kandel, Saroj, MD Chest pain Discharge Disposition: Home or Self Care 01/11/2025 6:33 PM CDT - 01/11/2025 11:55 PM CDT Emergency [facility] Emergency Medicine [address] [place] [phone] Jayson Gallardo MD Wilson, [place], DO NSTEMI (non-ST elevated myocardial infarction) (CMS/HCC) (Primary Dx) Discharge Disposition: [facility] 01/11/2025 12:15 AM CDT - 01/11/2025 11:59 PM CDT Hospital Encounter [facility] Emergency Medical Services [place] [id number] [place] [address] Aftab Murdock, Ambulance, [facility] Discharge Disposition: [facility] 01/11/2025 Travel 01/11/2025 External Device Data STL ABSTRACTION Provider, Abstract 01/05/2025 10:30 AM CDT Office Visit [facility] [place] [address] [address] [place] [address] Alison Ramos MD Vitamin B12 deficiency (non anemic) (Primary Dx); Primary osteoarthritis involving multiple joints; Primary hypertension; Chronic congestive heart failure, unspecified heart failure type (CMS/HCC); Paroxysmal A-fib ([facility]/HCC); Coronary artery disease involving paskenta coronary artery of [place] heart without angina pectoris; Influenza vaccination administered at current visit; Duodenal ulcer; Other iron deficiency anemia; Osteoporosis with current pathological fracture, unspecified osteoporosis type, initial encounter; Osteoarthritis of spine with radiculopathy, lumbar region; Chronic obstructive pulmonary disease, unspecified COPD type ([facility]/HCC) 01/05/2025 Telephone [facility] [place] [address] [address] [place] [address] [place] [address] Alison Ramos MD request office notes 12/27/2024 Refill [facility] [place] [address] [address] [place] [address] [place] [address] Alison Ramos MD 12/27/2024 Refill [facility] [place] [address] [address] [place] [address] Alison Ramos MD from Last 3 Months Immunizations Immunization Administration Dates Next Due (ADACEL/BOOSTRIX)(10 YR UP) TDAP VACCINE, 0.5ML, IM 05/11/2019,12/11/2018 (AREXVY)(60 YR UP) RSV, ABEL MBINANT, PROTEIN SUBUNIT RSVPREF, ADJUVANT RECONSTITUTED, 0.5 ML, PF 02/03/2023 (PREVNAR 20)(6 WKS UP) PNEUM OCOCCAL CONJUGATE VACCINE 20-VALENT (PCV20), POLYSACCHARIDE [id number] CONJUGATE, ADJUVANT 0.5 ML (PF) IM 03/03/2023 [...] worry about transportation for future doctor visits, 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 No 2024 Housing Stability Answer [...] on file Legal Sex Female 11:31 PM PACKING LINE OPERATOR Gender Identity Not on file Sexual Orientation Not on file Last Filed Vital Signs Vital Sign Reading Time Taken Comments Blood Pressure 136/86 03/08/2025 10:17 AM PACKING LINE OPERATOR Pulse 85 03/08/2025 10:17 AM PACKING LINE OPERATOR Temperature 36.1 C (97 F) 03/08/2025 10:17 AM PACKING LINE OPERATOR Respiratory Rate 18 03/08/2025 10:17 AM PACKING LINE OPERATOR Oxygen Saturation 98% 03/08/2025 10:17 AM PACKING LINE OPERATOR Inhaled Oxygen Concentration - - Weight 64.4 kg (142 lb) 03/08/2025 10:17 AM PACKING LINE OPERATOR Height 162.6 cm (5' 4 ) 03/08/2025 10:17 AM PACKING LINE OPERATOR Body Mass Index 24.37 03/08/2025 10:17 AM PACKING LINE OPERATOR Plan of Treatment Upcoming Encounters Date Type Department Care Team (Late st Contact Info) Description 04/07/2025 10:00 AM PACKING LINE OPERATOR Office Visit [facility] [place] [address] [place] [address] [place] [address] Alison Ramos MD [address] [place] [address] 05/08/2025 9:30 AM PACKING LINE OPERATOR Office Visit [facility] [place] [address] [place] [address] [place] [address] Alison Ramos MD [address] [place] [address] Health Maintenance Due Date Last Done Comments DIABETES ANNUAL RETINAL EXAM 1958 DIABETES MICROALBUMIN ANNUAL SCREEN 1960 ZOSTER VACCINE (1 of 2) 1992 OSTEOPOROSIS SCREENING 12/25/2007 PRISCILA uACR (Auto Order) 03/23/2024 DIABETES HBA1C Q 6 MONTHS 02/09/2025 08/09/2024 DIABETES: A1C (Auto Order) 08/09/2025 08/09/2024 LDL CHOLESTEROL ANNUAL 11/22/2025 11/22/2024, 2024 DIABETES ANNUAL FOOT EXAM 02/06/2026 02/06/2025 Medicare Advantage ([place]) Preventative Visit/Annual Wellness Visit 02/06/2026 Postponed from [...] history exists Medical Devices Implanted Type Area Paper Stripper Device Identifier Shelf Expiration Date Model / Serial / Lot Clip Endo Resolution 360 Ultra 2.8mm 235cm [id number] - [id number] Implanted:Qty: 1 on 07/18/2024 by Rodney Bright MD at [facility] Clip N/A: Stomach [employer] [id number] 03/29/2027 [id number] / / [id number] Procedures Procedure Name Priority Date/Time Associated Diagnosis [...] WITH DIFFERENTIAL Stat 01/11/2025 6:00 PM CDT LIPID PANEL Routine 11/22/2024 HEMOGLOBIN A1C Routine 08/09/2024 8:27 AM CDT from Last 3 Months or Most Recently Relevant to Health Maintenance Results * TELEMETRY REPORT (01/16/2025 3:33 AM CDT) us Provider Scanning ECG ORDERABLES Final Result * MANUAL DIFFERENTIAL (01/14/2025 4:27 AM CDT) Only the most recent of2 resultswithin the time period is included. PLATELET EST. Adequate 01/14/2025 6:07 AM CDT [facility] ANISOCYTOSIS 1+ /hpf 01/14/2025 6:07 AM CDT [facility] POIKILOCYTES 1+ /hpf 01/14/2025 6:07 AM CDT [facility] HYPOCHROMIA 1+ /hpf 01/14/2025 6:07 AM CDT [facility] OVALOCYTES 1+ /hpf 01/14/2025 6:07 AM CDT [facility] Blood Venipuncture / Unknown 01/14/2025 4:27 AM CDT 01/14/2025 5:24 AM CDT us Pilo Burton MD HEMATOLOGY ORDERABLES COM Final Result [facility] CLIA # [id number] [address] [place] [address] [place], [place] [id number] * (ABNORMAL) CBC WITH DIFFERENTIAL (01/14/2025 4:27 AM CDT) Only the most recent of2 resultswithin the time period is included. WBC 6.4 4.8 - 10.8 K/uL 01/14/2025 6:07 [facility] RBC 4.73 4.20 - 5.40 M/uL 01/14/2025 6:07 AM [facility] HEMOGLOBIN 12.4 12.0 - 16.0 g/dL 01/14/2025 6:07 AM [facility] HEMATOCRIT 41.2 36.0 - 46.0 % 01/14/2025 6:07 AM [facility] MCV 87.1 84.0 - 103.0 fL 01/14/2025 6:07 AM [facility] MCH 26.2(L) 27.0 - 34.0 pg 01/14/2025 6:07 AM [facility] MCHC 30.1 30.0 - 35.0 g/dL 01/14/2025 6:07 AM [facility] PLATELETS 319 140 - 440 K/uL 01/14/2025 6:07 AM [facility] MPV 9.4 8.9 - 12.8 fL 01/14/2025 6:07 AM [facility] RDW 22.4(H) 11.0 - 14.5 % 01/14/2025 6:07 AM [facility] RDW-STDEV 72.1(H) 37.0 - 54.0 fL 01/14/2025 6:07 AM [facility] NEUTROPHILS 65 42 - 75 % 01/14/2025 6:07 AM [facility] LYMPHOCYTES 18(L) 24 - 44 % 01/14/2025 6:07 AM [facility] MONOCYTES 12(H) 2 - 10 % 01/14/2025 6:07 AM [facility] EOSINOPHILS 4 0 - 7 % 01/14/2025 6:07 AM [facility] BASOPHILS 1 0 - 1 % 01/14/2025 6:07 AM [facility] IMMATURE GRANULOCYTES 0 0 - 2 % 01/14/2025 6:07 AM [facility] NEUTROPHIL ABSOLUTE 4.13 2.00 - 8.00 K/uL 01/14/2025 6:07 AM CDT [facility] LYMPHOCYTE ABSOLUTE 1.18(L) 1.20 - 4.00 K/uL 01/14/2025 6:07 AM CDT [facility] MONOCYTE ABSOLUTE 0.77(H) 0.10 - 0.60 K/uL 01/14/2025 6:07 AM CDT [facility] EOSINOPHIL ABSOLUTE 0.26 0.00 - 0.70 K/uL 01/14/2025 6:07 AM CDT [facility] BASOPHILS ABSOLUTE 0.05 0.00 - 0.20 K/uL 01/14/2025 6:07 AM CDT [facility] IMMATURE GRANULOCYTES ABSOLUTE 0.01 0.00 - 0.10 K/uL 01/14/2025 6:07 AM T [facility] SMEAR REVIEWED: SR - See Smear Review on Manual Diff. 01/14/2025 6:07 AM T [facility] Blood Venipuncture / Unknown 01/14/2025 4:27 AM CDT 01/14/2025 5:24 AM CDT us Pilo Burton MD HEMATOLOGY ORDERABLES Final Resu lt [facility] CLIA # [id number] [address] [place] [address] * (ABNORMAL) COMPREHENSIVE METABOLIC PANEL (01/14/2025 4:27 AM CDT) Only the most recent of2 resultswithin the time period is included. SODIUM 138 136 - 145 mmol/L 01/14/2025 6:21 AM CDT [facility] POTASSIUM 3.2(L) 3.5 - 5.1 mmol/L 01/14/2025 6:21 AM CDT [facility] CHLORIDE 97(L) 98 - 107 mmol/L 01/14/2025 6:21 AM T [facility] CO2 29 22 - 29 mmol/L 01/14/2025 6:21 AM [facility] CALCIUM 9.7 8.8 - 10.2 mg/dL 01/14/2025 6:21 AM [facility] BUN 16 8 - 23 mg/dL 01/14/2025 6:21 AM [facility] CREATININE 1.40(H) 0.51 - 0.95 mg/dL 01/14/2025 6:21 AM [facility] Comment:The GFR result is no t clinically significant on patients <18 or >70 years of age. GLUCOSE 88 74 - 99 mg/dL 01/14/2025 6:21 AM [facility] TOTAL PROTEIN 6.7 6.4 - 8.3 g/dL 01/14/2025 6:21 AM [facility] ALBUMIN 4.0 3.5 - 5.2 g/dL 01/14/2025 6:21 AM [facility] BILIRUBIN TOTAL 0.7 0.0 - 1.0 mg/dL 01/14/2025 6:21 AM [facility] ALKALINE PHOSPHATASE 80 35 - 104 U/L 01/14/2025 6:21 AM [facility] AST 19 10 - 35 U/L 01/14/2025 6:21 AM [facility] ALT 8 <=35 U/L 01/14/2025 6:21 AM [facility] GFR 38 mL/min/1. 73 sq meter 01/14/2025 6:21 AM [facility] Comment:eGFR calculated with 2020 CKD-EPI equation. Vegetarian diet, extremely high or low muscle mass, and may affect results. Cystatin C with Glomerular Filtration Rate is a suitable alternative for these patients. ANION GAP 12 9 - 20 mmol/L 01/14/2025 6:21 AM [facility] Blood Venipuncture / Unknown 01/14/2025 4:27 AM CDT 01/14/2025 5:23 AM CDT us Pilo Burton MD CHEMISTRY ORDERABLES Final Resul t [facility] [id number] [address] [id number] * ECHOCARDIOGRAM W/ CONTRAST AGENT (01/13/2025 3:17 PM CDT) EJECTION FRACTION 60 INTERFACE SYSTEM 01/13/2025 2:09 PM CDT Narrative INTERFACE SYSTEM - 01/13/2025 4:05 PM CDT [facility] Echocardiography Laboratory [address] [place] [address] Transthoracic Echocardiography Patient: Arielle Vences Study ID: ECHOCARDIOGRAM W A Gender: F : 1940 Age: 84 Room: [facility] Study 01/13/2025 Pt Inpatient Date: Status: Study 02:09:38 PM [facility] #: [id number] Time: Ordering:Pilo Burton Product Management Consultant: MARIELY Indications and History: Adult Congenital Heart [...] (H) kirstie values outside specified reference range. [facility] Labs are accredited with the [facility] Commission - Echocardiography. Prepared and Electronically Authenticated Ajit Garcia Confirmed 01/13/2025 16:05 Procedure Note Ajit Garcia MD - 01/13/2025 [facility] Echocardiography Laboratory [address] [place] [address] Transthoracic Echocardiography Patient: Arielle Vences Study ID: ECHOCARDIOGRAMW A Gender: F : 1940 Age: 84 Room: [facility] Study 01/13/2025 Pt Inpatient Date: Status: Study 02:09:38 PM CSN #: [id number] Time: Ordering:Pilo Burton Product Management Consultant: MARIELY Indications and History: Adult Congenital Heart [...] (H) kirstie values outside specified reference range. [facility] are accredited with the[facility] Accreditation Commission - Echocardiography. Prepared and Electronically Authenticated Ajit Garcia Confirmed 01/13/2025 16:05 us Pilo Burton MD US ORDERABLES Final Result INTERFACE SYSTEM Refer to clinic/hospital department * (ABNORMAL) TROPONIN 2 HR, 5TH GEN (01/11/2025 8:43 PM CDT) TROPONIN T, 2 HR 5TH GEN 43(H) <=10 ng/L 01/11/2025 9:19 PM CDT [facility] DELTA 2HR TROPONIN T -1 See Interp. 01/11/2025 9:19 PM CDT [facility] Blood BLOOD SPECIMEN / Unknown Collection / Unknown 01/11/2025 8:43 PM CDT 01/11/2025 8:56 PM CDT Narrative [facility] - 01/11/2025 9:19 PM CDT Troponin elevated. Delta not changing. us Jayson Gallardo MD CHEMISTRY ORDERABLES Final Resu lt Performing Organization Address City/[facility]/ZIP Co de Phone Number [facility] CLIA # [id number] [address] [place] [address] * (ABNORMAL) URINALYSIS MICROSCOPY ONLY (01/11/2025 8:26 PM CDT) WBC UA 3-5(A) 0 - 2 /hpf 01/11/2025 9:05 PM CDT [facility] RBC UA 0-2 0 - 2 /hpf 01/11/2025 9:05 PM CDT [facility] BACTERIA UA Negative Negative /hpf 01/11/2025 9:05 PM CDT [facility] EPITHELIAL CELLS, URINE 0-5 0 - 5 /hpf 01/11/2025 9:05 PM CDT [facility] Urine URINE SPECIMEN OBTAINED BY CLEAN CATCH PROCEDURE / Unknown Collection / Unknown 01/11/2025 8:26 PM CDT 01/11/2025 8:55 PM CDT us Jayson Gallardo MD URINE ORDERABLES Final Result [facility] CLIA # [id number] [address] [place] [address] * (ABNORMAL) URINALYSIS WITH REFLEX MICROSCOPIC (01/11/2025 8:26 PM CDT) COLOR UA Yellow Pale to Dark Yellow 01/11/2025 9:05 PM CDT [facility] CLARITY UA Clear Clear 01/11/2025 9:05 PM T [facility] SPECIFIC GRAVITY UA 1.010 1.003 - 1.035 01/11/2025 9:05 PM T [facility] PH UA 5.5 5.0 - 8.0 01/11/2025 9:05 PM T [facility] LEUKOCYTE ESTERASE UA 1+(A) Negative 01/11/2025 9:05 PM T [facility] NITRITE UA Negative Negative 01/11/2025 9:05 PM T [facility] PROTEIN UA Negative Negative 01/11/2025 9:05 PM [facility] GLUCOSE UA Negative Negative 01/11/2025 9:05 PM T [facility] KETONES UA Negative Negative 01/11/2025 9:05 PM [facility] UROBILINOGEN UA 0.2 <2.0 mg/dL 9:05 PM T [facility] BILIRUBIN UA Negative Negative 01/11/2025 9:05 PM T [facility] BLOOD UA Trace(A) Negative 01/11/2025 9:05 PM [facility] Urine URINE SPECIMEN OBTAINED BY CLEAN CATCH PROCEDURE / Unknown Collection / Unknown 01/11/2025 8:26 PM CDT 01/11/2025 8:55 PM CDT us Jayson Gallardo MD URINE ORDERABLES Final Result [facility] CLIA # [id number] [address] [place] [address] * XR CHEST PA OR AP 1 [...] significant effusion or pneumothorax. Heart is enlarged. us Jayson Gallardo MD DIAGNOSTIC IMAGING ORDERABLES F inal Result * EKG 12-LEAD (01/11/2025 6:54 PM CDT) Narrative Aftab Murdock DO - 01/11/2025 6:54 PM CDT Aftab Murdock DO 01/12/2025 9:56 PM EKG 12-LEAD Date/Time: 01/11/2025 6:54 PM Performed by: Jayson Gallardo MD Authorized by: Jayson Gallardo MD ECG interpreted by ED Physician in the absence of a slot technician: yes Rate: ECG rate: 101 ECG rate assessment: tachycardic Rhythm: Rhythm Origin: atrial Rhythm morphology: fibrillation Ectopy: Ectopy occurance: occasional Ectopy origin: PVCs Intervals: normal Blocks: BBB: Ant [place] QRSTT: QRSTT changes: Yes us Jayson Gallardo MD ECG ORDERABLES Final Result * (ABNORMAL) TROPONIN BASELINE, 5TH GEN (01/11/2025 6:00 PM CDT) TROPONIN T, BASELINE 5TH GEN 44(H) <=10 ng/L 01/11/2025 7:37 PM CDT [facility] Blood Collection / Unknown 01/11/2025 6:00 PM CDT 01/11/2025 7:09 PM CDT Narrative [facility] - 01/11/2025 7:37 PM CDT Troponin elevated. Result Burt Gallardo MD CHEMISTRY ORDERABLES Final Resu lt Performing Organization Address City/[facility]/ZIP Co de Phone Number [facility] CLIA # [id number] [address] [place] [address] * LACTIC ACID (01/11/2025 6:00 PM CDT) LACTIC ACID 0.8 <=2.0 mmol/L 01/11/2025 7:31 PM CDT [facility] Blood BLOOD SPECIMEN / Unknown Collection / Unknown 01/11/2025 6:00 PM CDT 01/11/2025 7:09 PM CDT Result Burt Gallardo MD CHEMISTRY ORDERABLES Final Resu lt [facility] CLIA # [id number] [address] [place] [address] * PTT (01/11/2025 6:00 PM CDT) PTT 28.1 25.1 - 35.4 seconds 01/11/2025 7:21 PM CDT [facility] Blood Collection / Unknown 01/11/2025 6:00 PM CDT 01/11/2025 7:09 PM CDT Result Burt Gallardo MD HEMATOLOGY ORDERABLES Final Res ult [facility] CLIA # [id number] [address] [place] [address] * SEDIMENTATION RATE (01/11/2025 6:00 PM CDT) ESR (SEDIMENTATION RATE) 7 0 - 30 mm/Hr 01/11/2025 7:17 PM CDT [facility] Blood Collection / Unknown 01/11/2025 6:00 PM CDT 01/11/2025 7:09 PM CDT Narrative [facility] - 01/11/2025 7:17 PM CDT Tube Lot: #[id number] Exp Date: 03/22/2026 QC1 LOT [id number] EXP.03/27/2025 QC2 LOT [id number] EXP.03/27/2025 us Jayson Gallardo MD HEMATOLOGY ORDERABLES Final Res ult Performing Organization Address [facility]/ZIP Co de Phone Number [facility] CLIA # [id number] [address] [place] [id number] * PROTIME-INR (01/11/2025 6:00 PM CDT) PROTIME 14.1 12.1 - 14.3 Seconds 01/11/2025 7:21 PM CDT [facility] INR 1.1 0.9 - 1.1 01/11/2025 7:21 PM CDT [facility] Blood Collection / Unknown 01/11/2025 6:00 PM CDT 01/11/2025 7:09 PM CDT us Jayson Gallardo MD HEMATOLOGY ORDERABLES Final Res ult Performing Organization Address City/[facility]/ZIP Co de Phone Number [facility] CLIA # [id number] [address] [place] [phone] * D-DIMER (01/11/2025 6:00 PM CDT) D-DIMER QUANT 0.38 <0.50 ug/mL FEU 01/11/2025 7:30 PM CDT [facility] Blood Collection / Unknown 01/11/2025 6:00 PM CDT 01/11/2025 7:09 PM CDT Narrative [facility] - 01/11/2025 7:30 PM CDT D-Dimer assay [...] ORDERABLES Final Res ult Performing Organization Address [facility] Co de Phone Number [facility] CLIA # [id number] [address] [place] [address]139 * C-REACTIVE PROTEIN (01/11/2025 6:00 PM CDT) CRP <3.0 <5.0 mg/L 01/11/2025 7:3 7 PM CDT [facility] Blood Collection / Unknown 01/11/2025 6:00 PM CDT 01/11/2025 7:09 PM CDT us Jayson Gallardo MD CHEMISTRY ORDERABLES Final Resu lt Performing Organization Address [facility]/ZIP Co de Phone Number [facility] CLIA # [id number] [address] [place] [phone] * TSH (01/11/2025 6:00 PM CDT) TSH 2.72 0.27 - 4.20 uIU/mL 01/11/2025 7:37 PM CDT [facility] Blood Collection / Unknown 01/11/2025 6:00 PM CDT 01/11/2025 7:09 PM CDT Jayson Gallardo MD CHEMISTRY ORDERABLES Final Resu lt [facility] CLIA # [id number] [address] [place] [address] * (ABNORMAL) BRAIN NATRIURETIC PEPTIDE, BNP OR PROBNP (01/11/2025 6:00 PM CDT) PROBNP, N TERMINAL 2,578(H) 0 - 450 pg/mL 01/11/2025 7:37 PM CDT [facility] Comment: INTERPRETIVE COMMENT based on diagnosis: Diagnostic [...] Gallardo MD CHEMISTRY ORDERABLES Final Resu lt [facility] CLIA # [id number] [address] [place] [address] [id number] * MAGNESIUM LEVEL (01/11/2025 6:00 PM CDT) MAGNESIUM 1.8 1.6 - 2.4 mg/dL 01/11/2025 7:37 PM CDT [facility] Blood Collection / Unknown 01/11/2025 6:00 PM CDT 01/11/2025 7:09 PM CDT us Jayson Gallardo MD CHEMISTRY ORDERABLES Final Resu lt [facility] CLIA # [id number] [address] [place] [id number] * LIPID PANEL (11/22/2024) Pathologist [facility] [place] ABSTRACTED CHOLESTEROL 163 ABSTRACTED TRIGLYCERIDE 233 ABSTRACTED HDL 58 ABSTRACTED LDL CALCULATED 58 Blood 11/22/2024 us Abstract Provider CHEMISTRY ORDERABLES Final Res ult * HEMOGLOBIN A1C (08/09/2024 8:27 AM CDT) Pathologist [facility] ABSTRACTED HGB A1C 5.6 % [facility] Blood us Abstract Provider CHEMISTRY ORDERABLES Edited Re sult - Final Performing Organization Address City/[facility]/ZIP Co de Phone Number [facility] from Last 3 Months or Most Recently Relevant to Health Maintenance Insurance MEDICAID [place] AETNA O [facility] RX [employer] (INTERNAL) [facility] RX INFOCROSSING Medicaid RX AETNA Medicare Part D Advance Directives For more information, please contact: [phone] * Full Code (Latest Code Status on File) Date Activated Date Inactivated Comments 01/12/2025 4:07 AM 01/14/2025 2:55 PM * Default Full Code - Needs Discussion Date Activated Date Inactivated Comments 07/18/2024 4:04 AM 07/20/2024 4:18 PM Care Teams Telemarketer Relationship Specialty Start Date End Date Alison Ramos MD [address] [place] [address] [address] [place] [address] PCP - General Internal Medicine 07/21/24
--- OUTSIDE RECORDS SUMMARY | 2025-03-14 10:18 | XMS_ITS | Encounter Summary ---
Author Organization [facility] Address [address] [place] [address] Care Team Providers Care Molder Shoulder Pad Name Role Phone Alison Ramos MD Primary Care Provider Reason for Visit * Reason Onset Date Comments possible duplicates 03/01/2025 Encounter Details Date Type Department Care Team (Late st Contact Info) Description 03/01/2025 Telephone [facility] Primary [facility] [place] [address] [place] [address] [facility] [place] [address] Alison Ramos MD [address] [place] [address] possible duplicates Social History Tobacco Use Types Packs/Day Years [...] worry about transportation for future doctor visits, pickle processor medication, etc.? 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 Pharmacy is going to filland notify pt. 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 Continue plavix 75mg daily. I think I discussed this with her -lowering her Eliqis dose to 2.5mg bid Pls notify and pharmacy.thanks MENTAL IRONWORKER HELPER * Telephone Encounter - Mar Ngo RN - 03/03/2025 9:23 AM CST Left message with Dr Christopher's staff- we looked over the medication and they had eliquis 5 mg BID last filled on 11/25 of this year and plavix 75 mg daily. They did see pt in December and has 3 month f/u scheduled. Do you want her to take his dose of eliquis? Thanks! 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 Her last visit paper said eliquis 2.5 mg bid and plavix 75mg daily. Pls ask office if this is stillthe same.thanks MENTAL IRONWORKER HELPER * Telephone Encounter - Mar Ngo RN - 03/02/2025 12:10 PM CST Please advise MENTAL IRONWORKER HELPER * Telephone Encounter - Lucy Rojas - 03/01/2025 2:02 PM CST Another provider has prescribed the plavix, Dr. Ramos has prescribed Eloquis [facility]. [phone] [facility] MENTAL IRONWORKER HELPER documented in this encounter Plan of Treatment Upcoming Encounters Date Type Department Care Team (Late st Contact Info) Description 04/07/2025 10:00 AM ORNAMENTAL IRONWORKER HELPER Office Visit [facility] Primary Care [place] [address] [place] [address] Alison Ramos MD [address] [place] [address] 05/08/2025 9:30 AM ORNAMENTAL IRONWORKER HELPER Office Visit [facility] Primary Care [place] [address] [place] [address] Alison Ramos MD [address] [place] [address] documented as of this encounter Visit Diagnoses Not on filedocumented in this encounter Care Teams Molder Shoulder Pad Relationship Specialty Start Date End Date Alison Ramos MD [address] [place] [phone] PCP - General Internal Medicine 07/21/24 documented as of this encounter
--- NOTE | 2025-03-14 10:22 | W.ED.NAVMDI ---
HPI - Nausea/Vomiting/Diarrhea General: Chief complaint: Nausea/Vomiting/Diarrhea Stated complaint: n/v, abd pain, fall yesterday, R hip pain Time Seen by Provider: 03/14/25 10:22 History of Present Illness: 84-year-old female with a history of mitral regurg, anxiety, depression, arthritis, hypothyroidism, restless legs, dementia, atrial fibrillation COPD hypertension and congestive heart failure who presents emergency room with lower abdominal pain and a fall yesterday with some right sided hip pain. No head injury. No altered mental status. She has had some nausea and vomiting. Related Data Home Medications ?Medication ?Instructions ?Recorded ?Confirmed gabapentin 600 mg tablet 600 mg PO TID 04/06/19 01/25/25 levothyroxine 88 mcg tablet 88 mcg PO QAM 04/06/19 01/25/25 loratadine 10 mg tablet 10 mg PO DAILY Allergy Symptoms 04/06/19 01/25/25 mirabegron 50 mg tablet,extended 50 mg PO QAM 04/06/19 01/25/25 release 24 hr (Myrbetriq) cholecalciferol (vitamin D3) 1,250 50,000 unit PO Q7D 05/11/19 01/25/25 mcg (50,000 unit) capsule trazodone 50 mg tablet 25 - 50 mg PO BEDTIME PRN Sleep 05/11/19 01/25/25 montelukast 10 mg tablet 10 mg PO QAM 01/14/22 01/25/25 donepezil 10 mg tablet 10 mg PO QAM 11/08/22 01/25/25 amlodipine 10 mg tablet 10 mg PO DAILY 07/08/23 01/25/25 digoxin 125 mcg (0.125 mg) tablet 125 mcg PO QAM 07/08/23 01/25/25 empagliflozin 10 mg tablet 10 mg PO QAM 07/08/23 01/25/25 (Jardiance) potassium chloride 20 mEq 20 meq PO DAILY 07/08/23 01/25/25 tablet,extended release tizanidine 2 mg tablet 2 mg PO BID 07/08/23 01/25/25 duloxetine 60 mg capsule,delayed 60 mg PO QAM 11/21/24 01/25/25 release nystatin 100,000 unit/gram topical 1 applic topical TID 11/21/24 01/25/25 cream pantoprazole 40 mg tablet,delayed 40 mg PO Q12H 11/21/24 01/25/25 release hydrocodone 10 mg-acetaminophen 1 tab PO TID PRN Pain 12/01/24 01/25/25 325 mg tablet lisinopril 10 mg tablet 10 mg PO BID 12/01/24 01/25/25 clopidogrel 75 mg tablet 75 mg PO DAILY 01/25/25 01/25/25 ferrous sulfate 325 mg (65 mg 325 mg PO DAILY 01/25/25 01/25/25 iron) tablet (Iron (ferrous sulfate)) sucralfate 1 gram tablet 1 g PO QID 01/25/25 01/25/25 Previous Rx's ?Medication ?Instructions ?Recorded apixaban 5 mg tablet (Eliquis) 5 mg PO BID #60 tabs 11/25/24 atorvastatin 40 mg tablet 20 mg (1/2 x 40 mg) PO BEDTIME #30 11/25/24 tabs metoprolol tartrate 25 mg tablet 25 mg PO BID@0900,2100 #60 tabs 11/25/24 acetaminophen 325 mg tablet 650 mg (2 x 325 mg) PO Q4H PRN 12/03/24 Mild Pain Or Increase Temp #1 tab albuterol sulfate 90 mcg/actuation 2 inh inhalation Q4H PRN shortness 12/03/24 aerosol inhaler (Ventolin HFA) of breath or wheezing #8.5 grams dexamethasone 2 mg tablet 2 mg PO DAILY #3 tabs 12/03/24 furosemide 20 mg tablet 20 mg PO QAM weight gain of 5 lbs 01/10/25 #10 tabs cefdinir 300 mg capsule 300 mg PO BID 7 days #14 caps 03/14/25 ondansetron 8 mg disintegrating 8 mg PO Q6H #14 tabs 03/14/25 tablet Allergies Allergy/AdvReac Type Severity Reaction Status Date / Time No Known Allergies Allergy Verified 01/10/25 12:53 Review of Systems Narrative: Constitutional symptoms: Negative except as documented in HPI. Skin symptoms: Negative except as documented in HPI. Eye symptoms: Negative except as documented in HPI. ENMT symptoms: Negative except as documented in HPI. Respiratory symptoms: Negative except as documented in HPI. Cardiovascular symptoms: Negative except as documented in HPI. Gastrointestinal symptoms: Negative except as documented in HPI. Genitourinary symptoms: Negative except as documented in HPI. Musculoskeletal symptoms: Negative except as documented in HPI. Neurologic symptoms: Negative except as documented in HPI. Psychiatric symptoms: Negative except as documented in HPI. Endocrine symptoms: Negative except as documented in HPI. PFSH ED PFSH: Medical History (Updated 03/14/25 @ 12:40 by Kenya Mcmullen MD) Severe mitral regurgitation Anxiety and depression Upper GI bleed Dyspnea on exertion Peripheral edema Lymphedema Venous stasis dermatitis Hx of fracture of ankle Arthritis DJD (degenerative joint disease) Abdominal hernia Sliding hiatal hernia Hypothyroidism Insomnia Gastroenteritis DDD (degenerative disc disease) Restless legs Pulmonary nodule Diverticulitis Hx of fracture of tibia Dementia Age related osteoporosis Mixed incontinence History of colon polyps COVID Atrial fibrillation with RVR COPD (chronic obstructive pulmonary disease) Anal fissure Chronic back pain Lymphedema of both lower extremities Mixed hyperlipidemia Chronic systolic (congestive) heart failure Essential hypertension Surgical History History of amputation of toe Hx of blepharoplasty History of bladder surgery History of colonoscopy years ago History of hysterectomy Family History Sister Stroke CAD (coronary artery disease) [place] @ 75 Hypertension Brother Cancer Father Cancer Social History Smoking and tobacco/nicotine status: former use of tobacco/nicotine Second hand smoke exposure: No Alcohol intake: never Substance/Drug Use: never Adopted: No Caregiver/support person: No Lives independently: Yes Household members: spouse Housing: House Marital status: service: No Current occupational status: retired Do you think of yourself as: Straight/Heterosexual Current gender identity: Female Physical Exam Narrative: EXAM NARRATIVE: General: Alert, no acute distress. Skin: Warm, dry. Head: Normocephalic, atraumatic. Neck: Supple, trachea midline. Eye: Extraocular movements are intact. Ears, nose, mouth and throat: Tacky oral mucosa. Cardiovascular: Regular, Normal peripheral perfusion. Respiratory: Lungs are clear to auscultation, respirations are non-labored, breath sounds are equal, Symmetrical chest wall expansion. Gastrointestinal: Soft, some suprapubic tenderness, Non distended Musculoskeletal: Normal ROM, no deformity. Neurological: Alert and oriented, No focal neurological deficit observed. Psychiatric: Cooperative, appropriate mood & affect. Course Vital Signs: Vital signs: Vital Signs Temperature 98.3 F 03/14/25 10:16 Pulse Rate 106 H 03/14/25 13:26 Respiratory Rate 16 03/14/25 13:26 Blood Pressure 152/93 03/14/25 13:26 Pulse Oximetry 91 03/14/25 13:26 Oxygen Delivery Me thod Room Air 03/14/25 13:04 MDM - Nausea/Vomiting/Diarrhea Medical Decision Making Medical decision making Patient's reason for coming to the emergency room: Low abdominal pain, vomiting, fall with right hip pain Social determinants: Patient is retired and I reviewed the patient's medical record. 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 Pain contract. Alternate historians: Differential diagnosis for this patient with nausea and vomiting including but not limited to and based on the above HPI, review of systems and physical exam: Urinary tract infection. Appendicitis. Cholecystitis. Colitis. small bowel obstruction. Crohn's flare. pancreatitis. gastritis. peptic ulcer. cyclic vomiting. Viral illness. Influenza. COVID. And would have concern for resultant dehydration or renal failure. Orders placed to evaluate differential diagnosis based on the above differential, HPI and physical exam Differential diagnosis for the patient with fall and hip pain includes but not limited to and based on the above HPI, review of systems and physical exam: Hip fracture, femur fracture, pelvic fractures including pubic rami and acetabular fractures, hip strain, hip contusion Lab Review: Laboratory results were reviewed and interpreted by myself the emergency room physician. Mild leukocytosis. No anemia. Creatinine mildly elevated over her baseline at 1.3. Urinalysis positive for infection X-ray of the right hip and pelvis: No acute fractures or dislocations. This was reviewed and interpreted by myself the emergency room physician. I also reviewed the radiology report. Assessment of risk: Level of risk: Moderate risk patient. Multiple comorbidities Hospitalization considerations: No indications for admission today. Vitals have been stable Reexamination: Patient remained stable. No increased work of breathing. No altered mental status. No focal motor deficits. Assessment and plan: UTI Dehydration Fall hip pain ?IV Zofran, IV Dilaudid, IV Rocephin, IV fluids - Discharged home - Discussed findings and plan with patient. Answered any questions. - All laboratory values were reviewed and interpreted personally by myself, the ER physician - All imaging was reviewed and interpreted personally by myself, the ER physician. - Evaluation and treatment of this problem were appropriate in the emergency setting Lab Data 03/14/25 10:54 03/14/25 10:54 Radiology Impressions Hip/Pelvis X-Ray 03/14/25 12:39 Impression: Negative pelvis and right hip. Laboratory Results WBC 13.72 10^3/uL (3.29-11.43) H 03/14/25 10:54 RBC 4.66 10^6/uL (3.85-5.65) 03/14/25 10:54 Hgb 13.70 g/dL (11.27-16.99) 03/14/25 10:54 Hct 42.7 % (36-47) 03/14/25 10:54 MCV 91.6 fl (85-98) 03/14/25 10:54 MCH 29.4 pg (27-33) 03/14/25 10:54 MCHC 32.1 g/dL (30-55) 03/14/25 10:54 RDW 13.6 % (12.1-15.1) 03/14/25 10:54 Plt Count 244 10^3/cmm (157-399) 03/14/25 10:54 MPV 9.4 fL (7.4-10.4) 03/14/25 10:54 Neut % (Auto) 85.7 % 03/14/25 10:54 Lymph % (Auto) 3.6 % 03/14/25 10:54 Kaufman % (Auto) 9.0 % 03/14/25 10:54 Eos % (Auto) 0.7 % 03/14/25 10:54 Baso % (Auto) 0.3 % 03/14/25 10:54 Neut # (Auto) 11.76 10^3/uL (1.8-7.7) H 03/14/25 10:54 Lymph # (Auto) 0.5 10^3/uL (0.8-4.8) L 03/14/25 10:54 Kaufman # (Auto) 1.2 10^3/uL (0.2-0.9) H 03/14/25 10:54 Eos # (Auto) 0.1 10^3/uL (0.0-0.8) 03/14/25 10:54 Baso # (Auto) 0.0 10^3/uL (0.0-0.1) 03/14/25 10:54 Nucleated RBC % (auto) 0 % 03/14/25 10:54 Nucleated RBCs # 0.0 /100WBC 03/14/25 10:54 Sodium 136 mmol/L (136-145) 03/14/25 10:54 Potassium 3.8 mmol/L (3.5-5.1) 03/14/25 10:54 Chloride 99 mmol/L (98-107) 03/14/25 10:54 Carbon Dioxide 22 mmol/L (22-29) 03/14/25 10:54 Anion Gap 18.8 (5-19) 03/14/25 10:54 BUN 11 mg/dL (8-23) 03/14/25 10:54 Creatinine 1.3 mg/dL (0.5-0.9) H 03/14/25 10:54 GFR Calculation Not Reportable 03/14/25 10:54 Glucose 124 mg/dL (65-115) H 03/14/25 10:54 Calculated Osmolality 283 mOsm/kg (285-295) L 03/14/25 10:54 Lactic Acid 0.9 mmol/L (0.5-2.2) 03/14/25 10:54 Calcium 9.8 mg/dL (8.5-10.5) 03/14/25 10:54 Total Bilirubin 0.7 mg/dL (0.15-1.2) 03/14/25 10:54 AST 25 U/L (0-32) 03/14/25 10:54 ALT 6 U/L (0-33) 03/14/25 10:54 Alkaline Phosphatase 106 U/L (35-105) H 03/14/25 10:54 C-Reactive Protein 45.7 mg/L (0.0-4.9) H 03/14/25 10:54 Total Protein 7.2 g/dL (6.6-8.7) 03/14/25 10:54 Albumin 4.0 g/dL (3.5-5.2) 03/14/25 10:54 Globulin 3.2 g/dL (1.3-4.6) 03/14/25 10:54 Lipase 20 U/L (13-60) 03/14/25 10:54 Urine Color Yellow (Yellow) 03/14/25 11:16 Urine Appearance Clear (CLEAR) 03/14/25 11:16 Urine pH 5.5 (5-7) 03/14/25 11:16 Ur Specific [place] 1.021 (1.005-1.030) 03/14/25 11:16 Urine Protein 1+ (Negative) A 03/14/25 11:16 Urine Glucose (UA) 3+ (Normal) H 03/14/25 11:16 Urine Ketones Trace (Negative) 03/14/25 11:16 Urine Blood Trace (Negative) A 03/14/25 11:16 Urine Nitrate Negative (Negative) 03/14/25 11:16 Urine Bilirubin Negative (Negative) 03/14/25 11:16 Urine Urobilinogen 1.0 mg/dL (Negative) 03/14/25 11:16 Ur Leukocyte Esterase 1+ (Negative) A 03/14/25 11:16 Urine RBC 0-2 /hpf (0-2) 03/14/25 11:16 Urine WBC 11-20 /hpf (0-5) H 03/14/25 11:16 Ur Squamous Epith Cells 6-10 /hpf (0-5) 03/14/25 11:16 Amorphous Sediment Not Reportable 03/14/25 11:16 Urine Bacteria None seen /hpf (NONE) 03/14/25 11:16 Hyaline Casts 1.21 /lpf 03/14/25 11:16 Influenza A (PCR) Negative (Negative) 03/14/25 11:16 Influenza Type B (PCR) Negative (Negative) 03/14/25 11:16 RSV (PCR) Negative (Negative) 03/14/25 11:16 SARS-CoV-2 (PCR) Negative (Negative) 03/14/25 11:16 All radiology interpretation(s) finalized by discharge Discharge Plan Discharge Patient Disposition: Home Clinical Impression: Urinary tract infection, Dehydration, Nausea & vomiting, Hip injury Condition: Stable Prescriptions: New ondansetron 8 mg tablet,disintegrating 8 mg PO Q6H Qty: 14 0RF Rx Instructions: Take 1/2-1 tab every 6 hours as needed for nausea and vomiting cefdinir 300 mg capsule 300 mg PO BID 7 Days Qty: 14 0RF No Action levothyroxine 88 mcg tablet 88 mcg PO QAM gabapentin 600 mg tablet 600 mg PO TID loratadine 10 mg tablet 10 mg PO DAILY Myrbetriq 50 mg tablet extended release 24 hr 50 mg PO QAM furosemide 20 mg tablet 20 mg PO QAM Qty: 10 0RF trazodone 50 mg Tablet 25 - 50 mg PO BEDTIME PRN (Reason: Sleep) cholecalciferol (vitamin D3) 1,250 mcg (50,000 unit) capsule 50,000 unit PO Q7D Rx Instructions: (ON SUNDAYS) tizanidine 2 mg tablet 2 mg PO BID amlodipine 10 mg tablet 10 mg PO DAILY Jardiance 10 mg tablet 10 mg PO QAM digoxin 125 mcg (0.125 mg) tablet 125 mcg PO QAM potassium chloride 20 mEq tablet extended release 20 meq PO DAILY sucralfate 1 gram Tablet 1 g PO QID ferrous sulfate [Iron (ferrous sulfate)] 325 mg (65 mg iron) Tablet 325 mg PO DAILY clopidogrel 75 mg tablet 75 mg PO DAILY Rx Instructions: TAKE ONE TABLET BY MOUTH DAILY montelukast 10 mg Tablet 10 mg PO QAM donepezil 10 mg tablet 10 mg PO QAM duloxetine 60 mg capsule,delayed release(DR/EC) 60 mg PO QAM pantoprazole 40 mg tablet,delayed release (DR/EC) 40 mg PO Q12H nystatin 100,000 unit/gram cream 1 applic topical TID atorvastatin 40 mg Tablet 20 mg PO BEDTIME Qty: 30 0RF metoprolol tartrate 25 mg Tablet 25 mg PO BID@0900,2100 Qty: 60 0RF Eliquis 5 mg tablet 5 mg PO BID Qty: 60 0RF hydrocodone-acetaminophen 10-325 mg tablet 1 tab PO TID PRN (Reason: Pain) lisinopril 10 mg tablet 10 mg PO BID acetaminophen 325 mg Tablet 650 mg PO Q4H PRN (Reason: Mild Pain Or Increase Temp) Qty: 1 0RF dexamethasone 2 mg tablet 2 mg PO DAILY Qty: 3 0RF albuterol sulfate [Ventolin HFA] 90 mcg/actuation HFA aerosol inhaler 2 inh inhalation Q4H PRN (Reason: shortness of breath or wheezing) Qty: 8.5 0RF Discharge Orders: Discharge ED (Routine); Ordered 03/14/25 Ordered By: Kenya Mcmullen Referrals: Alison Ramos MD [Primary Care Provider, Internal Medicine] Discharge Diet: Advance as tolerated Discharge Activity: Increase activity as tolerated Patient Instructions: Urinary Tract Infection in Older Adults (ED), Opioid Safety, Pain Management, Patient Portal & Josafat Instructions Activity Restrictions/Additional Instructions: Thank you for choosing [facility] for your healthcare needs today. You have been screened and evaluated and felt safe for discharge. Health conditions do change or evolve sometimes and as such it is important that you follow up with your Primary Doctor to be re checked, 3-5 days is a general good time frame for follow up. You are always welcome to return to the ED for re assessment if your symptoms are worsening or you have new concerns. (Please note that included in your discharge packet is information concerning opioid safety and pain management. 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
--- NOTE | 2025-03-14 10:25 | ECG_ITS ---
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 Presser: : 1940 Requested By: Kenya Keen Order Number: [id number] Reba MD: NANCY DAVIS Measurements Intervals [place] Rate: 105 P: 0 MO: 0 QRS: -28 QRSD: 87 T: 138 QT: 294 QTc: 390 Interpretive Statements ATRIAL FIBRILLATION WITH RAPID VENTRICULAR RESPONSE POSSIBLE ANTERIOR MYOCARDIAL INFARCTION , PROBABLY OLD [30 ms Q WAVE IN V3/V4, OR R < 0.2 mV IN V4] ABNORMAL RHYTHM ECG Compared to ECG 02/23/2025 22:57:41 Left anterior fascicular block no longer present Myocardial infarct finding still present Electronically Signed On 03-14-2025 12:00:40 SILVERSMITH APPRENTICE by NANCY DAVIS [email or web address]
[2025-03-14] MEDS: ondansetron 2 mg/ML SDV 2 mL 4 MG IVP (10:58)
[2025-03-14 11:13] LABS: Hematocrit 42.7 % (36-47); Hemoglobin 13.70 g/dL (11.27-16.99); Mean Corpuscular HGB Conc 32.1 g/dL (30-55); Mean Corpuscular Hemoglobin 29.4 pg (27-33); Mean Corpuscular Volume 91.6 fl (85-98); Nucleated Red Blood Cells % 0 %; Platelet Count 244 10^3/cmm (157-399); Red Blood Count 4.66 10^6/uL (3.85-5.65); White Blood Count 13.72 10^3/uL (3.29-11.43)
[2025-03-14 11:26] LABS: Alanine Aminotransferase 6 U/L (0-33); Albumin Level 4.0 g/dL (3.5-5.2); Alkaline Phosphatase 106 U/L (35-105); Aspartate Amino Transferase 25 U/L (0-32); Blood Urea Nitrogen 11 mg/dL (8-23); Calcium 9.8 mg/dL (8.5-10.5); Carbon Dioxide 22 mmol/L (22-29); Chloride 99 mmol/L (98-107); Globulin 3.2 g/dL (1.3-4.6); Glucose 124 mg/dL (65-115); Lipase 20 U/L (13-60); Osmolality Calculated 283 mOsm/kg (285-295); Sodium 136 mmol/L (136-145); Total Protein 7.2 g/dL (6.6-8.7)
[2025-03-14 11:27] LABS: Lactic Sepsis W/Reflex 0.9 mmol/L (0.5-2.2)
[2025-03-14 11:29] VITALS: BP 137/105; PULSE 84; RESP 16; O2SAT 92
[2025-03-14 11:29] LABS: Anion Gap 18.8 (5-19); Potassium 3.8 mmol/L (3.5-5.1)
[2025-03-14 11:30] LABS: Glucose Urine UA 3+ (Normal); Nitrate Urine Negative (Negative); Specific Gravity, Urine 1.021 (1.005-1.030)
[2025-03-14 12:02] LABS: Respiratory Syncytial Virus Ce NEGATIVE (Negative); SARS-CoV-2 PCR NEGATIVE (Negative)
[2025-03-14] MEDS: cefTRIAXone 1,000 mg SDV 1000 MG IVP (12:08)
[2025-03-14 12:34] VITALS: BP 170/101; PULSE 89; RESP 16; O2SAT 92
--- NOTE | 2025-03-14 12:39 | XR_ITS ---
WS: [id number] Right hip, AP and frog-leg views, AP pelvis, 03/14/2025 Clinical Data: hip pain fall Comparison: Left hip, 08/12/2022 Findings: No fractures or dislocations are seen. The right hip shows no erosion, sclerosis, narrowing, cyst formation or fragmentation of the right femoral head. The left hip is normal. The soft tissues are not remarkable. The adjacent pelvis is normal. XR/XR hip RT 2-3V wo/w pel* [id number] Impression: Negative pelvis and right hip.
[2025-03-14] MEDS: HYDROmorphone 0.5 MG/0.5 ML INJ 1 MG IVP (12:50)
[2025-03-14 13:04] VITALS: BP 152/93; PULSE 90; RESP 16; O2SAT 89
[2025-03-14 13:26] VITALS: BP 152/93; PULSE 106; RESP 16; O2SAT 91
== END 2025-03-14 13:26 | disposition home or self-care (01) ==
PROVIDERS: Emergency Provider Emergency Medicine; PCP Internal Medicine
DX: N39.0 Urinary tract infection, site not specified (principal); E86.0 Dehydration; R11.2 Nausea with vomiting, unspecified; S79.911A Unspecified injury of right hip, initial encounter; Z79.02 Long term (current) use of antithrombotics/antiplatelets; Z79.01 Long term (current) use of anticoagulants; Z11.52 Encounter for screening for COVID-19; Z87.891 Personal history of nicotine dependence; J44.9 Chronic obstructive pulmonary disease, unspecified; E78.2 Mixed hyperlipidemia; I11.0 Hypertensive heart disease with heart failure; I50.22 Chronic systolic (congestive) heart failure; W19.XXXA Unspecified fall, initial encounter
CPT/HCPCS: 73502; 80053; 81001; 83605; 83690; 85025; 86140; 87040; 87150; 87186; 87205; 87637; 93005; 96361; 96374; 96375; 99285; J0696; J1171; J2405; J7030